=== PATIENT | female | born 1960 | race Caucasian/White ===

== ENCOUNTER 2017-12-10 10:49 | Day surgery (SDC) | payer MEDICAID, SELFPAY ==
[2017-12-10 11:14] VITALS: BP 169/74; PULSE 81; RESP 16; TEMP 36.3; O2SAT 96; BMI 46.2
[2017-12-10 11:25] LABS: Bedside Glucose 152 mg/dL (70-110)
--- NOTE | 2017-12-10 11:47 | EGD_PTH ---
PATIENT: CAROL HORNER LOC: EN U#:[id number] AGE/SX: 57/F ROOM: RE12/10/[address]: Dr. Nicole Velasquez MD : [id number] BED: DIS: 12/10/2017 SPEC #: [id number] RECD: 12/10/17 12:40 STATUS: ANNE MARIE DANIEL #: [id number] MACARENA: 12/10/17 11:[address]: Nicole Velasquez DEPT: SURGICAL PATHOLOGY RECD BY: Lukas Hampton ENTERED: 12/10/17 12:59 SP TYPE: EGD BIOPSY OTHR DR: Dr. Mac Siddiqui MD Tissues: A - Duodenum, NOS B - Gastric mucous membrane C - COLON BIOPSY Procedures: Surgery Specimen Level IV HEADER OPERATION: EGD with biopsy, colonoscopy PRE-OP DIAGNOSIS: Nausea, abdominal pain, loose stool TISSUE SUBMITTED: A ? Duodenum biopsy, B ? GE junction biopsy, C ? Random mucosal biopsies MICROSCOPIC DIAGNOSIS A. Duodenum, biopsy: Small bowel mucosa with no significant pathologic change. Gastric mucosa with minimal chronic inflammation. B. Gastroesophageal junction, biopsy: Fragment of squamous mucosa with no pathologic change. C. Colon, random biopsy: No significant pathologic change. See comment. AM:major 12/11/17 COMMENT C. There is focal recent hemorrhage in the mucosa. Clinical correlation is suggested. MICROSCOPIC DESCRIPTION Slides are reviewed. GROSS DESCRIPTION A - Received in fixative is one container labeled with the patient's name and designated duodenum biopsy. The specimen consists of two irregular fragments of light pruitt soft tissue that in aggregate measure 0.4 x 0.2 x 0.1 cm. The specimen is totally submitted in one cassette. B - Received in fixative is one container labeled with the patient's name and designated GE junction biopsy. The specimen consists of one minute fragment of pruitt soft tissue measuring 0.1 x 0.1 x <0.1 cm. The specimen is totally submitted in one cassette. C - Received in fixative is one container labeled with the patient's name and designated random mucosal biopsy. The specimen consists of multiple irregular fragments of light pruitt soft tissue that in aggregate measure 2.5 x 0.5 x 0.1 cm. The specimen is totally submitted in one cassette. / DELFIN:major 12/10/17 TC:3 CPT: 41060 x3
[2017-12-10 12:16] VITALS: BP 116/97; BP 169/74; PULSE 89; RESP 18; TEMP 36.4; O2SAT 95
[2017-12-10 12:20] VITALS: BP 121/82; BP 169/74; PULSE 79; RESP 18; O2SAT 94
--- NOTE | 2017-12-10 12:20 | OP.PCM_ITS ---
Report of Operation Date of Procedure: 12/10/17 Pre-Operative Diagnosis: dysphagia, abdominal pain, change in bowel habits Post-Operative Diagnosis: same,no pathology seen Surgery/Procedure Performed:: Esophagogastroduodenoscopy and colonoscopy with biopsies Description of Surgical Findings:: normal EGD, normal colon Type of Anesthesia:: MAC Anesthesiologist: Albert Croft Specimen's removed: mucosal biopsies of duodenum (second portion), mucosal biopsies of GE junction, random mucosal biopsies of colon Estimated Blood Loss (mL): minimal Fluids Replaced: see anesthesia note Description of Procedure: After informed consent was given, the patient was brought to the endoscopy suite and placed in the upright sitting position. Appropriate time out protocol was followed. Appropriate cardiac, blood pressure, and pulse oximetry monitoring was placed. After stable vital signs were noted, the patient was given intravenous conscious sedation. The posterior pharynx was sprayed with lidocaine spray times two and a bite block was placed. The patient was then placed in the left lateral decubitis position. The upper endoscope was lubricated and inserted into the patient?s mouth and then carefully placed into the patient?s throat. The patient was asked to swallow and the endoscope was then easily advanced into the patient?s esophagus. The endoscope was further advanced down into the patient?s stomach, then past the pylorus, then past the duodenal bulb and then to the second portion of the duodenum. There were no lesions noted in the duodenum. Mucosal biopsies were taken of the second portion of the duodenum to rule out celiac sprue. The endoscope was then retracted back into the stomach. A retroflex view of the stomach revealed no evidence of any masses. No ulcers, no strictures, no suspicious lesions were noted. The endoscope was retracted into the esophagus, where any insufflated gas in the stomach was aspirated out. The gastroesophageal junction was slightly irregular and mucosal biopsies were taken. There was no evidence of salmon colored mucosal creeping. The remainder of the esophagus was normal. The upper endoscope was removed intact. The colonoscopy procedure was done next. The colonoscope was lubricated and carefully inserted into the patient?s anus. It was then advanced into the rectum, then into the sigmoid colon, then into the left descending colon, past the splenic flexure, into the transverse colon, past the hepatic flexure, then down into the right descending colon and into the cecum. The cecum was identified by: transillumination, confluence of the tenae coli, identification of the ileocecal valve and appendiceal orifice, and external pressure with indentation. Mucosal biopsies were taken throughout the colon using cold grasper forceps to rule out microscopic colitis. The colonoscope was slowly retracted back and the entire colonic mucosa was examined. There was no evidence of extrinsic compression and no inflammatory changes were noted. The colon cleansing preparation was adequate. No intraluminal obstructing lesions, no strictures, and no ulcers were noted. Retroflex view in the rectum revealed no lesions in the rectal vault. The colonoscope was removed intact. Patient tolerated procedures well.. - Complications none noted
[2017-12-10 12:25] VITALS: BP 134/84; BP 169/74; PULSE 71; RESP 18; O2SAT 94
[2017-12-10 12:34] VITALS: BP 150/80; BP 169/74; PULSE 69; RESP 18; TEMP 36.6; O2SAT 97
[2017-12-10 12:55] VITALS: BP 169/74
== END 2017-12-10 12:57 | disposition home or self-care (01) ==
LOC: EN 10:50 → AC 10:51
PROVIDERS: Family Provider Family Medicine; PCP Family Medicine; Visit Provider Surgery
PROC: 0DJD8ZZ Inspection of Lower Intestinal Tract, Via Natural or Artificial Opening Endoscopic (ICD-10-PCS; CPT 45378; principal; 2017-12-10 11:55)
DX: R13.10 Dysphagia, unspecified (principal); R10.9 Unspecified abdominal pain; R19.4 Change in bowel habit; I10 Essential (primary) hypertension; J45.909 Unspecified asthma, uncomplicated; K76.0 Fatty (change of) liver, not elsewhere classified; E11.9 Type 2 diabetes mellitus without complications; E78.5 Hyperlipidemia, unspecified; R22.0 Localized swelling, mass and lump, head; F17.200 Nicotine dependence, unspecified, uncomplicated; Z95.1 Presence of aortocoronary bypass graft
CPT/HCPCS: 43239; 45378; 82962; 88305; J7120

== ENCOUNTER 2019-03-03 09:54 | Observation (INO) | payer MEDICAID, SELFPAY ==
--- NOTE | 2019-03-01 04:30 | HP_ITS ---
HPI HPI History of Present Illness Surgical H&P: Yes Details: Mrs. Nolan is a very pleasant 58-year-old morbidly obese diabetic female with a history of hypertension, current smoker, with a total [id number] smoking history, hypercholesterolemia, coronary artery disease status post two- vessel bypass surgery at [facility] in [address] Parra. At that time she had a ORTIZ to the LAD, and a saphenous vein graft to the RCA. She then returned to [facility] on 06/17/2017 with recurrent substernal chest pressure similar to her angina prior to her bypass surgery. She apparently was admitted and ruled out for myocardial infarction underwent a non-walking nuclear stress test on 06/18/2017 which was negative for inducible ischemia. As best I can tell she has not had a heart catheterization since that time. She is now referred to our office for urgent office visit d/t recurrent CP. More recently, the patient complained of exertional chest pressure, almost on a daily basis, which does not appear to completely resolved with sublingual nitroglycerin. In addition she has significant shortness of breath, diaphoresis, and severe exercise limitations over the last several months. In addition she complains of snoring, wakes herself up with her own snoring, and daytime somnolence. She has never undergone a sleep study. Patient reports that she is compliant with her medications however. In our office today blood pressure is 140/70, and pulse is 80 and regular. Her physical exam demonstrates clear lungs bilaterally, regular rate and rhythm, normal S1/S2, no S3 or S4. No edema. Her lipids as of 06/18/2017 show an LDL of 68 and HDL of 46. Her lipids as of 10/25/2018 show an HDL of 48 and LDL of 101. Hemoglobin A1c is 6.6. EKG dated 06/17/2017 showed NSR. EKG dated 02/28/2019 shows normal sinus rhythm, normal axis, anterior T wave inversion with ST segment flattening, new from previous EKG. Intake Vital Signs 03/01/19 Height 5 ft 7 in 03/01/19 Weight: 286 lb 03/01/19 Body Mass Index (BMI) 44.8 03/01/19 Blood Pressure 140/70 H 03/01/19 Blood Pressure Location Lt brachial 03/01/19 Respiratory Rate 20 H 03/01/19 Pulse Rate 80 03/01/19 Pulse Source Auscultation Intake Visit Reasons: PER LL, CAD SOB, CP, CABG Security Systems Technician Required: No Accompanied by: Is patient in pain?: No Allergies nickel Allergy (Verified 12/09/17 10:03) Rash Penicillins [PCN] Allergy (Verified 12/09/17 10:03) Hives nicotine patch Adverse Reaction (Severe, Uncoded 03/01/19 16:01) Terrible nightmares Medications Aspirin [Adult Low Dose Aspirin EC] 162 mg PO DAILY 05/15/15 [History Confirmed 02/28/19] Nitroglycerin (INPATIENT USE) [Nitrostat] 0.4 mg SUBLINGUAL Q5M PRN 05/15/15 [History Confirmed 02/28/19] Gabapentin [Neurontin] 300 mg PO QHS 01/17/16 [History Confirmed 02/28/19] Albuterol Inhaler [Ventolin Hfa] 2 puff INHALATION Q4H PRN PRN 06/17/17 [History Confirmed 02/28/19] ipratropium-albuterol 0.5 mg-3 mg(2.5 mg base)/3 mL nebulization soln 3 ml INHALATION .QID ml 02/28/19 [History Confirmed 02/28/19] lisinopril 10 mg tablet 10 mg PO DAILY 02/28/19 [History Confirmed 02/28/19] metformin ER 500 mg tablet,extended release 24 hr 500 mg PO BID tab 02/28/19 [History Confirmed 02/28/19] metoprolol succinate ER 50 mg tablet,extended release 24 hr 50 mg PO DAILY 02/28/19 [History Confirmed 02/28/19] clopidogrel 75 mg tablet 75 mg PO .COMPLEX #30 tab 03/01/19 [Rx Confirmed 03/01/19] rosuvastatin 10 mg tablet 10 mg PO DAILY #30 tab 03/01/19 [Rx Confirmed 03/01/19] PFSH Medical History Chest pain (Acute) Dyspnea on minimal exertion (Acute) Atherosclerotic heart disease of cherokee coronary artery with unstable angina pectoris (Acute) Hypertension (Chronic) Hyperlipidemia (Chronic) Diabetes mellitus, type II (Chronic) Tobacco use disorder (Chronic) Surgical History S/P CABG x 2 (Chronic 10/17/15) History of (Chronic) History of arthroscopic knee surgery (Chronic) History of cholecystectomy (Chronic) History of colonoscopy (Chronic) History of esophagogastroduodenoscopy (EGD) (Chronic) History of rotator cuff surgery (Chronic) History of selective injection of anesthetic agent around lumbar nerve root (Chronic) History of tonsillectomy and adenoidectomy (Chronic) History of total right knee replacement (Chronic) History of tubal ligation (Chronic) Family History Mother Kidney disease Congestive heart failure Renal failure Father CAD (coronary artery disease) Daughter Hypertension Social History (Updated 03/01/19 @ 16:30 by Orestes Gamez MD) Smoking Status: Current every day smoker tobacco type: cigarettes Tobacco: How many years used: 43 ROS Const Const: Positive for fatigue (Can't sleep) and other (Dr. Cruz referred: CP, RUDOLPH, sweats. Scheduled for cath Fri.); negative for weakness, body ache, fever(s), headache(s), chills, frequent falls, night sweats, daytime sleepiness, difficulty sleeping, excessive sweating, weight gain, weight loss, increased appetite, poor appetite or anorexia Eyes Eyes: Negative for blind spots, loss of peripheral vision, transient loss of vision, blurry vision, change in vision, double vision, floaters, tunnel vision or other ENT ENT: Negative for headache(s), dizziness, hearing loss, tinnitus, Nosebleed/epistaxis, balance problems, post nasal drip, lip swelling, tongue swelling, bleeding gums, hoarseness, neck pain, dry mouth or other Cardio Chest Pain: Yes Frequency: more than once a day Character: squeezing, other (strong pressure) Onset: exercise Location: mid sternal Duration: minutes Exacerbation: exercise Relieving: other (can't get nitro to dissolve and just got a new bottle) Recurrence: exercise, activity Palpitations: Yes (occasionally) feels like its: pounding Edema: Left (had veins removed in left leg) Muscle aches with walking: Bilateral (Back of calves) Resp Respiratory: Positive for SOB with activity, SOB orthopnea\SOB lying down, Cough (dry cough) and other (smokes 2 ppd since age 11 ); negative for SOB at rest, Coughing up blood/hemoptysis, chest congestion, pain on inspiration, snoring, stridor, wheezing, crackles or paroxysmal nocturnal dyspnea GI GI: Negative nausea, vomiting, heartburn, constipation, belching, bloating, cramping, vomiting blood/hematemesis, bright, red blood in stools, black,tarry stools, loose stools, Difficulty Swallowing or other : Negative for hematuria, frequent nighttime urination/ nocturia, erectile dysfunction or abnormal vaginal bleeding Musc Musc: Negative for muscle aches/ myalgia, muscle weakness, joint pain or balance problems Skin Skin: Negative redness, non-healing lesions, rash, unusual bruising, skin ulcer, wounds, jaundice or other Neuro Neuro: Negative for dizziness, lightheadedness, near syncope, syncope, orthostatic symptoms, frequent falls, headache(s), weakness, confusion, memory loss, restless legs, blurry vision, double vision, vertigo, seizures, lack of coordination or other John Hematologic/Lymphatic: Negative for easy bleeding, easy bruising, enlarged lymph nodes or other Endo Endo: Positive for fatigue (Can't sleep); negative for cold intolerance, heat intolerance, excessive sweating, flushing, increased thirst/drinking, increased hunger, hair loss, hair growth or other Psych Psych: Negative for anxiety, depression, thoughts of harming anyone, thoughts of harming yourself, visual hallucinations, panic attacks or audible hallucinations Allergy Allergy/Immunology: Negative for throat swelling, Negative for tongue swelling, Negative for hives, Negative for rash, Negative for lip swelling Cardiology Exam Const Appearance: cooperative, healthy appearing and no acute distress Nutritional Appearance: well nourished Orientation: alert, oriented x3 and oriented to person Head Head: normal to inspection, normocephalic and atraumatic Nose: external nose normal Face and Sinus: face symmetric Mouth: oral mucosae normal Eyes General: appearance normal, both eyes and all related structures Eyelids: eyelids normal Conjunctivae: conjunctivae normal Pupils: PERRL and normal by confrontation EOM: EOM intact bilaterally Neck Neck: normal visual inspection and full ROM Carotids: normal carotid upstroke Chest Chest inspection: normal inspection of the chest Auscultation: Bilateral: Clear to Auscultation Cardio Palpation: normal PMI Rate: regular rate Rhythm: regular rhythm Heart sounds: S1 normal and S2 normal GI GI: normal to inspection, no hepatosplenomegaly and bowel sounds present Neuro General: alert, awake, oriented x3, CN's II-XI intact bilaterally and moves all extremities Skin Skin: no rashes or lesions noted Extremities Pulses: Normal: Right Femoral Pulse, Left Femoral Pulse, Right Dorsalis Pedis Pulse, Left Dorsalis Pedis Pulse, Right Posterior Tibial Pulse, Left Posterior Tibial Pulse, Right Radial Pulse, Left Radial Pulse Lower Extremity Edema: None: Bilateral Psych Psychological: normal affect Assessment & Plan 1. Atherosclerotic heart disease of cherokee coronary artery with unstable angina pectoris I25.110 Plan 1. Coronary artery disease: Patient has recurrent substernal chest pressure similar to her angina prior to her bypass surgery, which is been on and off for the last several years, but recently is gotten much worse. Although she is compliant with her medications and although she had a negative stress test several years ago, I am concerned the patient may have recurrent coronary atherosclerosis particularly in light of her risk factors of diabetes, smoking, hypertension and subtherapeutic LDL control. I recommended the patient undergo a left heart catheterization with graft angiography to confirm/deny the patency of her bypass grafts as well as to evaluate her other coronary arteries. I recommend the patient continue aspirin, and add Plavix 3 mg x 1 followed by 75 mg daily. The risks/benefits of the catheterization procedure were thoroughly explained the patient including specific attention to lack of on-site surgical back-up, and the patient has agreed to proceed. In the meantime she will continue metoprolol and lisinopril. Should the patient have non-correctable coronary disease we can consider adding Ranexa Orders Orders: Left Heart Cath w/Grafts 03/04/19 Echo Complete 03/03/19 Polysomnography Today Lipid Profile 04/12/19 2. Hyperlipidemia, unspecified hyperlipidemia type E78.5 Plan . 2. Hyperlipidemia: Her LDL cholesterol is not at goal given her risk factors. Recommend discontinuation of Lipitor and switching her to Crestor 20 mill grams p.o. nightly, and repeating lipid profile in 6 weeks time. Orders Orders: Lipid Profile 04/12/19 Liver Profile 04/12/19 3. Tobacco use disorder F17.200 Plan 3. Tobacco abuse: The patient is a longtime smoker, of approximately 47 years x 1 to 2 packs/day. I strongly encourage the patient discontinue all tobacco products. She reports that nicotine patches given her vivid dreams. She has never tried Chantix. She may be a good candidate for Chantix therapy in the future. 4. Daytime somnolence R40.0 Plan 4. Daytime somnolence: The patient has signs and symptoms of possible obstructive sleep apnea which is not been diagnosed. I recommended she undergo a sleep study to determine if she has obstructive sleep apnea. 5. Return office in 6 months. This note was generated using a voice recognition system and there may be incorrect words, spelling or punctuation that were not noted when reviewing the office note prior to saving. Plan Detail Other Orders Orders: Left Heart Cath w/Grafts 03/04/19 R06.09, R07.9, Z95.1 Basic Metabolic Profile (BMP) Today R06.09, R07.9 Partial Thromboplast Time Today R06.09, R07.9 Prothrombin Time w/INR Today R06.09, R07.9 Echo Complete 03/03/19 R06.09, R07.9, Z95.1 CBC-Complete Blood Cnt No Diff Today R06.09, R07.9 Polysomnography Today G47.10, R06.83 Other Medications New: rosuvastatin 10 mg PO DAILY 30 tabs 11RF Discontinued: atorvastatin Discontinued Reason: Order Changed 80 mg PO QHS cholesterol Follow Up +6M (Gamez) Coding Level of Care Code Off vis,new,level 4 Diagnoses Atherosclerotic heart disease of cherokee coronary artery with unstable angina pectoris I25.110 Hyperlipidemia, unspecified hyperlipidemia type E78.5 ??Hyperlipidemia type: unspecified Tobacco use disorder F17.200 Daytime somnolence R40.0 Coding Level of Care Code Off vis,new,level 4 Diagnoses Atherosclerotic heart disease of cherokee coronary artery with unstable angina pectoris I25.110 Hyperlipidemia, unspecified hyperlipidemia type E78.5 ??Hyperlipidemia type: unspecified Tobacco use disorder F17.200 Daytime somnolence R40.0 Supplemental Info Supplemental Information Labs LDL Cholesterol 68 mg/dL (0-130) 06/18/17 HDL Cholesterol 46 mg/dL (40-) 06/18/17 Triglycerides 241 mg/dL (-199) H 06/18/17 VLDL Cholesterol 48 mg/dL (5-40) H 06/18/17 Diagnostics Electrocardiogram 06/17/17 Stress Test Nuclear Medicine 06/18/17 Chest X-Ray 06/17/17 03/01/19 2420 <Electronically signed by Orestes Gamez MD> Date _ Orestes Gamez MD
[2019-03-01 15:24] VITALS: BMI 44.8
[2019-03-03] VITALS (10 sets, daily range): BP systolic 104–155; BP diastolic 63–96; PULSE 62–78; RESP 13–18; TEMP 36.4–36.6; O2SAT 95–99; BMI 47.3; BMI 46.7
--- NOTE | 2019-03-03 10:19 | EKG12_ITS ---
Test Reason : CP Blood Pressure : / mmHG Vent. Rate : 076 BPM Atrial Rate : 076 BPM P-R Int : 180 ms QRS Dur : 086 ms QT Int : 376 ms P-R-T Axes : 072 002 060 degrees QTc Int : 423 ms Normal sinus rhythm Nonspecific T wave abnormality Abnormal ECG Confirmed by ADA KERNS, SHANNA ([id number]), sound editor DULCE MARTIN ([id number]) on 03/07/2019 11:21:51 A M Referred By: Bridger Serna Confirmed By:GLORY CABALLERO MD
--- NOTE | 2019-03-03 10:21 | RAD_ITS ---
STUDY: X-RAY CHEST REASON FOR EXAM: Female, 58 years old. Chest pain TECHNIQUE: Single AP portable view of the chest. COMPARISON: 06/17/2017 FINDINGS: Status post median sternotomy/CABG The lungs are clear and expanded. There is no demonstrated pleural abnormality. Normal size heart. Normal mediastinum and michael. Normal visualized pulmonary arteries. Normal visualized aortic arch and descending thoracic aorta. Normal visualized thoracic spine. Normal visualized ribs, clavicles, and shoulders. There is no demonstrated abnormality of the visualized soft tissue structures of the upper abdomen. RAD/Chest 1 View (Portable) IMPRESSION: Normal x-ray examination of the chest. Electronically Signed: Dayanna Alatorre, at 10:45 EDT Tel , Service support ,
--- NOTE | 2019-03-03 10:21 | ED.VISSUMM ---
- ER Visit Summary Date of Service: 03/03/19 Chief Complaint: Chest pain History of Present Illness: The patient is a 58 F who presents with chest pain that is been getting worse over the past week. Patient states it is gradually gotten worse. Patient states it comes and goes. Patient states it feels like a sharp pain that lasts for a couple seconds and a squeezing pain that lasts a few minutes. Patient states the pain is over the substernal area. Patient states pain is worse with exertion. Patient states nothing seems to help with the pain. Patient admits to some nausea but denies any vomiting. Patient denies any shortness of breath or diaphoresis. Patient does admit to some lightheadedness. Patient has a history of hypertension, diabetes, and hyperlipidemia. Patient is a smoker. Patient does have a family history of coronary artery disease in her parents in their 60s. Patient denies any PE risk factors. Patient states she was scheduled for an echocardiogram today and a cardiac catheterization tomorrow. Physical Examination: Vital signs are stable. Patient is afebrile. Patient is in no acute distress. Oral mucosa is pink and moist. Neck is supple. Trachea is midline. There is no JVD noted. Heart was regular rate and rhythm. Lungs are clear and equal bilateral. Abdomen is soft. Bowel sounds are normal. There is no tenderness. There is no guarding noted. Skin is warm dry. Cranial nerves II through XII are intact. There are no focal motor or sensory deficits noted. Test Results: EKG showed a normal sinus rhythm with a rate of 76. There are nonspecific ST-T wave changes noted in leads V2 and V3 which are unchanged compared to previous EKG. CBC, basic metabolic profile, troponin were obtained and were within normal limits. Chest x-ray shows no acute cardiopulmonary process. Emergency Department Course and Treatment: Patient was given aspirin and sublingual nitroglycerin here. She had slight improvement with the sublingual nitroglycerin. Case was discussed with Dr. Gamez. He recommended admitting the patient to the hospital and continuing with her scheduled cardiac cath tomorrow. Case was discussed with hospitalist. He will admit the patient to his service. Patient understood and was agreeable with the plan. All questions were answered. Disposition: Admit to hospital Impression: Chest pain This note was generated with Hubbub dictation software. It may contain incorrect words, spelling, and punctuation that were not noted in review of the chart prior to signing ED Disposition - Plan for ED Patient: Disposition: Acute Care Hospital [facility] Diagnosis: Chest pain Referrals: Mac Siddiqui MD [Primary Care Provider] -
[2019-03-03] MEDS: Aspirin 81 MG TAB.CHEW 324 MG PO (10:27)
[2019-03-03] MEDS: Nitroglycerin SL (ED/IMG/CATH) 0.4 MG TABLET SUBLINGUAL ×3 (10:28→10:42)
[2019-03-03 10:36] LABS: Absolute Lymphocyte Count 2.14 X10^3/uL (0.83-4.51); Absolute Neutrophil Count 3.9 X10^3/uL (2.0-7.7); Basophil# 0.05 X10^3/uL; Basophil% 0.7 % (0-1); Eosinophil# 0.16 X10^3/uL; Eosinophils% 2.3 % (0-5); Hematocrit 47.1 % (37-47); Hemoglobin 15.5 g/dL (12.0-15.0); Lymphocyte # 2.14 X10^3/ul (4.0); Mean Corp Hgb Conc 32.9 g/dL (32-36); Mean Corpuscular Hgb 31.5 pg (27.0-32.0); Mean Corpuscular Volume 95.7 fL (81-99); Mean Platelet Vol. 9.2 fl (6.2-12.0); Monocyte# 0.69 X10^3/uL; NRBC Flagged by Analyzer 0 % (0-5); Neutrophil # 3.85 X10^3/uL (2.7-7.7); Neutrophil % 55.7 % (47-70); Platelet Count 203 K/mm3 (150-450); RBC Distribution Width CV 13.4 % (11.6-14.6); RBC Distribution Width SD 47.7 fl (35.1-43.9); Red Blood Count 4.92 M/mm3 (4.2-5.4); White Blood Count 6.9 K/mm3 (4.4-11.0)
[2019-03-03 10:55] LABS: Anion Gap 3 (5-15); BUN 10 mg/dL (7-18); Calcium,Total 8.9 mg/dL (8.5-10.1); Chloride 108 mmol/L (98-107); Creatinine, Serum 0.72 mg/dL (0.55-1.02); EST Glomerular Filtration Rate 88 mL/min (>60); Est Glom Filt Rate - Afr Amer 107 mL/min (>60); Estimated Creatinine Clearance 77.79 ml/min; Glucose 135 mg/dL (74-106); Potassium 4.4 mmol/L (3.5-5.1); Sodium Level 139 mmol/L (136-145)
--- NOTE | 2019-03-03 11:05 | ED.RN ---
DR NOTIFIED NITRO TOOK PAIN TO 2-3:10, C/O NITRO MORGAN BUT STATES DOES NOT NEED MED FOR IT. REQUESTING MED FOR NAUSEA. NEW ORDER RECEIVED FOR X1 IV ZOFRAN.
[2019-03-03] MEDS: Ondansetron 4 MG/2 ML Vial IV (11:09)
--- NOTE | 2019-03-03 13:08 | ECHOCS_ITS ---
Reason For Study: CP Procedure This was a 2D Doppler, Color Flow transthoracic echocardiogram. The study was technically difficult. Contrast injection was performed. Exam performed portable in patient room. Left Ventricle Normal size and thickness. The estimated ejection fraction is 65 %. Stage 1 diastolic dysfunction. No regional wall motion abnormalities noted. Right Ventricle Normal size and thickness. Normal systolic function. Atria Normal left atrium. Normal right atrium. Normal atrial septum. Mitral Valve The mitral valve is structurally normal. No prolapse or stenosis seen. Tricuspid Valve Normal tricuspid valve. Trivial tricuspid valve insufficiency. Right ventricular systolic pressure estimated to be 25 mmHg. Aortic Valve Normal aortic valve. Trisinus/trileaflet aortic valve. Pulmonic Valve The pulmonic valve is not well visualized. Great Vessels Normal aortic root. Normal arch. Normal inferior vena cava. Inferior vena cava collapse with sniff. Pericardium/Pleural No pericardial effusion. Medication Diluted definity 5ml given slow IV push to enhance endocardial definition. MMode/2D Measurements & Calculations LVIDd: 4.6 cm IVSd: 1.1 cm LAV(MOD-bp): 39.7 ml LVIDs: 3.6 cm LVPWd: 1.1 cm FS: 20.5 % LAV(MOD-bp) Indexed: 17.0 ml/m2 LAV(MOD-sp2): 43.8 ml LAV(MOD-sp4): 31.4 ml LA A4 area: 13.8 cm2 RA A4 area: 12.5 cm2 Time Measurements MV dec time: 0.34 sec Doppler Measurements & Calculations MV E max talat: 78.9 cm/sec Lat Peak E' Talat: 8.7 cm/sec Med Peak E' Talat: 8.1 cm/sec MV A max talat: 89.1 cm/sec E/E' lat: 9.1 E/E' med: 9.7 MV E/A: 0.89 MV V2 max: 107.9 cm/sec MV P1/2t max talat: 87.6 cm/sec Ao V2 max: 109.8 cm/sec MV max P.7 mmHg MV P1/2t: 82.1 msec Ao max P.8 mmHg MV V2 mean: 51.8 cm/sec Ao V2 mean: 72.1 cm/sec MV mean P.3 mmHg MV dec slope: 312.5 cm/sec2 Ao mean P.4 mmHg MV V2 VTI: 34.7 cm MVA(P1/2t): 2.7 cm2 Ao V2 VTI: 22.3 cm LV V1 max: 101.2 cm/sec PA V2 max: 86.7 cm/sec TR max talat: 220.9 cm/sec LV V1 max P.1 mmHg TR max P.5 mmHg LV V1 mean P.9 mmHg LV V1 mean: 64.1 cm/sec LV V1 VTI: 23.4 cm Interpretation Summary The estimated ejection fraction is 65 %. Stage 1 diastolic dysfunction. Trivial tricuspid valve insufficiency. Right ventricular systolic pressure estimated to be 25 mmHg. The study was technically difficult. There is no comparison study available. Contrast injection was performed. Ordering Physician: Bridger Serna Referring Physician: MOON OLVERA Performed By: Jarred Yen RCS
--- NOTE | 2019-03-03 14:28 | PCM.HP.STD ---
Problem List (1) Chest pain Status: Acute Qualifiers: Ischemic chest pain type: unspecified angina pectoris type (2) Dyspnea on minimal exertion Status: Acute (3) Atherosclerotic heart disease of [place] coronary artery with unstable angina pectoris Status: Acute (4) S/P CABG x 2 Status: Chronic Comment: @ [facility] per Dr. Massimo Parra 2018: (5) Hypertension Status: Chronic Qualifiers: (6) Hyperlipidemia Status: Chronic Qualifiers: (7) Diabetes mellitus, type II Status: Chronic (8) Tobacco use disorder Status: Chronic History of Present Illness Date of Admission: 03/03/19 Chief Complaint: Chest Pain The patient is a 58 year old F with PMH as below who presents with chest pain. She is having chest pain intermittently for the last several weeks without radiation, however this week it has become more consistent and intense. This is a similar pain to what caused her to have a CABG in 2017. She saw cardiology on March 01 and they had set her up with a cardiac cath tomorrow however she became concerned because the continued chest pain so she presented to the ER. In the ER EKG was unremarkable and her to initial troponins were negative. She is morbidly obese and continues to smoke as well as being a diabetic. Per cardiology's outpatient note, she was given a prescription to take 300 mg of Plavix x1 as well as aspirin, and then transition to aspirin and Plavix daily. In the ER she was given a loading dose of aspirin as well and cardiology was consulted. Past Medical History Past Medical History (Chronic Problems): Chronic Problems (Last Reviewed 03/01/19 @ 15:24 by Hyacinth Mills) S/P CABG x 2 (Chronic 10/17/15) @ [facility] per Dr. Massimo Parra 2018: Hypertension (Chronic) Hyperlipidemia (Chronic) Diabetes mellitus, type II (Chronic) Tobacco use disorder (Chronic) Medical History: Medical History (Last Reviewed 03/01/19 @ 15:24 by Hyacinth Mills) Chest pain (Acute) R07.9 Dyspnea on minimal exertion (Acute) R06.09 Atherosclerotic heart disease of [place] coronary artery with unstable angina pectoris (Acute) I25.110 Hypertension (Chronic) I10 Hyperlipidemia (Chronic) E78.5 Diabetes mellitus, type II (Chronic) E11.9 Tobacco use disorder (Chronic) F17.200 Allergies nickel Allergy (Verified 12/09/17 10:03) Rash Penicillins [PCN] Allergy (Verified 12/09/17 10:03) Hives nicotine patch Adverse Reaction (Severe, Uncoded 03/01/19 16:01) Terrible nightmares Home Medications: Ambulatory Orders Medication Instructions Recorded Nitroglycerin (INPATIENT USE) 0.4 mg SUBLINGUAL Q5M PRN 05/15/15 [Nitrostat] Gabapentin [Neurontin] 300 mg PO QHS 01/17/16 Albuterol Inhaler [Ventolin Hfa] 2 puff INHALATION Q4H PRN PRN 06/17/17 ipratropium-albuterol 0.5 mg-3 3 ml INHALATION .QID PRN ml 02/28/19 mg(2.5 mg base)/3 mL nebulization soln lisinopril 10 mg tablet 20 mg PO DAILY 02/28/19 metformin ER 500 mg 500 mg PO BID tab 02/28/19 tablet,extended release 24 hr metoprolol succinate ER 50 mg 50 mg PO DAILY 02/28/19 tablet,extended release 24 hr aspirin 81 mg tablet,delayed 162 mg PO DAILY tab 03/01/19 release clopidogrel 75 mg tablet 75 mg PO .COMPLEX #30 tab 03/01/19 rosuvastatin 10 mg tablet 10 mg PO DAILY #30 tab 03/01/19 Surgical History: Surgical History (Last Reviewed 03/01/19 @ 15:24 by Hyacinth Mills) S/P CABG x 2 (Chronic) Onset Date: 10/17/15 Z95.1 @ [facility] per Dr. Massimo Parra 2018: History of Z98.891 History of arthroscopic knee surgery Z98.890 History of cholecystectomy Z90.49 History of colonoscopy Z98.890 History of esophagogastroduodenoscopy (EGD) Z98.890 History of rotator cuff surgery Z98.890 History of selective injection of anesthetic agent around lumbar nerve root Z98.890 History of tonsillectomy and adenoidectomy Z98.890 History of total right knee replacement Z96.651 History of tubal ligation Z98.51 Surgical History: cholecystectomy, rotator cuff repair, total knee arthroplasty, tonsillectomy, - - caesarian section Psychiatric History: Depression Smoking Status: Current every day smoker Tobacco Use: Cigarettes Alcohol: None Drugs: None - *Family History Paternal Family History: Family History (Last Reviewed 03/01/19 @ 15:24 by Hyacinth Mills) Mother Kidney disease Congestive heart failure Renal failure Father CAD (coronary artery disease) Daughter Hypertension History Items: Heart Disease - [place] at the age of 60 Offspring Family History: Family History (Last Reviewed 03/01/19 @ 15:24 by Hyacinth Mills) Mother Kidney disease Congestive heart failure Renal failure Father CAD (coronary artery disease) Daughter Hypertension History Items: Hypertension Review of Systems Constitutional: Denies: Chills, Fever, Weight Change HEENT: Denies: Head Aches, Sinus Congestion, Sinus Drainage Cardiovascular: Reports: Chest Pain. Denies: Palpitations Respiratory: Reports: Shortness of Breath, Shortness of breath upon exertion. Denies: Cough, Shortness of breath at rest, Sputum production Gastrointestinal: Denies: Abdominal Pain, Nausea, Vomiting Genitourinary: Denies: Dysuria Musculoskeletal: Denies: Joint Pain, Joint Tenderness Skin: Denies: Rash, Wounds Neurological: Denies: Numbness, Tingling, Focal weakness Psychiatric: Denies: Anxiety, Depression Hematologic/ Lymphatic: Denies: Easy Bruising, Easy Bleeding VTE Information - Inpt Only VTE Present on Admission: No Patient Problems: Active and Suspected Problems (Last Reviewed 03/01/19 @ 15:24 by Hyacinth Mills) Chest pain (Acute) - Physical Exam General: Alert, Oriented x3, Cooperative, No apparent distress HEENT: Atraumatic, PERRLA, EOMI, Normocephalic Oral: Moist Mucosa Neck: Supple, No JVD Lungs: Clear to auscultation, Normal air movement, No rhonchi, No wheeze, No rales Cardiovascular: Regular rate, Regular Rhythm, Normal S1, Normal S2, No murmurs Abdomen: Soft, Non Tender, Non-Distended, No Hepato-splenomegaly Extremities: No edema, Capillary Refill Less than 3 Seconds Skin: No rashes, No breakdown Neurological: Neuro grossly intact, Sensory exam intact to light touch and pain Psych/Mental Status: Normal Affect, Appropriate Vital Signs Temp Pulse Resp BP Pulse Ox 97.8 F 64 16 127/70 H 97 03/03/19 09:55 03/03/19 12:11 03/03/19 12:11 03/03/19 12:11 03/03/19 12:11 Oxygen Flow Rate (L/min) 2 Oxygen Delivery Method Room Air Weight: 289 lb 6 oz Body Mass Index (BMI) 46.7 Finger Stick Blood Glucose 113 Laboratory Tests Past 24 Hrs 03/03/19 03/03/19 03/03/19 10:22 10:22 13:30 WBC 6.9 RBC 4.92 Hgb 15.5 H Hct 47.1 H MCV 95.7 MCH 31.5 MCHC 32.9 RDW Std Deviation 47.7 H RDW Coeff of Aubrey 13.4 Plt Count 203 MPV 9.2 Immature Gran % (Auto) 0.300 Neut % (Auto) 55.7 Lymph % (Auto) 31.0 [place] % (Auto) 10.0 Eos % (Auto) 2.3 Baso % (Auto) 0.7 Absolute Neuts (auto) 3.9 Absolute Lymphs (auto) 2.14 Nucleated RBC % 0 Sodium 139 Potassium 4.4 Chloride 108 H Carbon Dioxide 28.0 Anion Gap 3 L BUN 10 Creatinine 0.72 Estim Creat Clear Calc 77.79 Est GFR (MDRD) Af Amer 107 Est GFR (MDRD) Non-Af 88 BUN/Creatinine Ratio 14.0 Glucose 135 H Calcium 8.9 Troponin I < 0.015 < 0.015 Assessment/Plan All Active Problems (Last Reviewed 03/01/19 @ 15:24 by Hyacinth Mills) Chest pain (Acute) Dyspnea on minimal exertion (Acute) Atherosclerotic heart disease of [place] coronary artery with unstable angina pectoris (Acute) 1. Chest pain/CAD status post CABG/HTN/HLD/tobacco abuse -Troponins are negative x2 -She was supposed to have an echo today, will order as an inpatient -Plan for cardiac cath in the morning -Consult to cardiology -We will restart her home lisinopril, metoprolol, and Crestor -Continue with aspirin and Plavix daily -She has about an [id number] smoking history, she continues to smoke, advised cessation. Will provide a nicotine patch 2. DM 2/morbid obesity -She has a BMI of 46.7, she was advised on lifestyle modifications including diet and exercise -She is on metformin 500 mg twice daily at home, will hold and start her on a sliding scale insulin 3. Asthma or COPD -Not in exacerbation, not needing oxygen -Continue with her home inhalers DVT: SCDs Code Visit OBSV E&M: [id number] Initial observation care L3
[2019-03-03] MEDS: Clopidogrel Bisulfate 300 MG Tablet PO (15:26)
[2019-03-03] MEDS: Nitroglycerin Oint 1 INCH PACKET TRANSDERM. ×2 (15:34→17:14)
[2019-03-03 17:06] LABS: Bedside Glucose 151 mg/dL (70-110)
[2019-03-03] MEDS: Insulin Lispro 100 UNIT/ML INSULN.PEN SC (17:12)
[2019-03-03] MEDS: Gabapentin 300 MG Capsule PO (22:20)
[2019-03-03] MEDS: Atorvastatin Calcium 20 MG Tablet PO (22:20)
[2019-03-03 22:31] LABS: Bedside Glucose 117 mg/dL (70-110)
[2019-03-04] VITALS (26 sets, daily range): BP systolic 101–157; BP diastolic 36–96; PULSE 55–70; RESP 14–22; TEMP 36.4–36.8; O2SAT 92–97; BMI 46.6
[2019-03-04] MEDS: Nitroglycerin Oint 1 INCH PACKET TRANSDERM. ×2 (00:04→05:38)
[2019-03-04] MEDS: oxyCODONE 5 MG Tablet PO (00:26)
[2019-03-04] MEDS: MELATONIN 3 MG TABLET PO ×2 (00:27→21:39)
[2019-03-04] MEDS: Aspirin E.C. 81 MG Tablet 162 MG PO (05:30)
[2019-03-04] MEDS: Metoprolol(XL)Succ 50 MG Tablet PO (05:31)
[2019-03-04] MEDS: Clopidogrel Bisulfate 75 MG Tablet PO (05:31)
[2019-03-04] MEDS: Lisinopril 20 MG Tablet PO (05:31)
[2019-03-04] MEDS: 0.9% NaCl Peripheral Flush Adult/Peds IV ×3 (05:54→21:46)
--- NOTE | 2019-03-04 05:55 | EKG12_ITS ---
Test Reason : AM EKG Blood Pressure : / mmHG Vent. Rate : 063 BPM Atrial Rate : 063 BPM P-R Int : 174 ms QRS Dur : 090 ms QT Int : 412 ms P-R-T Axes : 000 009 032 degrees QTc Int : 421 ms Normal sinus rhythm ST & T wave abnormality, consider anterior ischemia Abnormal ECG When compared with ECG of 03-MAR-2019 13:35, MANUAL COMPARISON REQUIRED, DATA IS UNCONFIRMED Confirmed by EFREN KERNS, LIANA ([id number]), writer editor SURY KAUFMAN ([id number]) on 03/07/2019 1:32:40 PM Referred By: Bridger Serna Confirmed By:LIANA SCHWARTZ MD
[2019-03-04] MEDS: 0.9% Normal Saline 1,000 ML 15 ML IV (06:00)
[2019-03-04 06:38] LABS: Absolute Lymphocyte Count 2.85 X10^3/uL (0.83-4.51); Absolute Neutrophil Count 3.9 X10^3/uL (2.0-7.7); Basophil# 0.05 X10^3/uL; Basophil% 0.6 % (0-1); Eosinophil# 0.25 X10^3/uL; Eosinophils% 3.2 % (0-5); Hematocrit 42.5 % (37-47); Hemoglobin 14.2 g/dL (12.0-15.0); Lymphocyte # 2.85 X10^3/ul (4.0); Lymphocyte % 36.8 % (19-41); Mean Corp Hgb Conc 33.4 g/dL (32-36); Mean Corpuscular Volume 95.7 fL (81-99); Mean Platelet Vol. 9.6 fl (6.2-12.0); Monocyte# 0.64 X10^3/uL; Monocyte% 8.3 % (0-10); NRBC Flagged by Analyzer 0 % (0-5); Neutrophil # 3.91 X10^3/uL (2.7-7.7); Neutrophil % 50.6 % (47-70); Platelet Count 183 K/mm3 (150-450); RBC Distribution Width CV 13.2 % (11.6-14.6); RBC Distribution Width SD 46.7 fl (35.1-43.9); Red Blood Count 4.44 M/mm3 (4.2-5.4); White Blood Count 7.7 K/mm3 (4.4-11.0)
[2019-03-04 06:55] LABS: Anion Gap 9 (5-15); BUN 14 mg/dL (7-18); BUN/Creat Ratio 18.2 RATIO (10-20); Calcium,Total 8.4 mg/dL (8.5-10.1); Chloride 106 mmol/L (98-107); Creatinine, Serum 0.77 mg/dL (0.55-1.02); EST Glomerular Filtration Rate 82 mL/min (>60); Est Glom Filt Rate - Afr Amer 99 mL/min (>60); Estimated Creatinine Clearance 72.73 ml/min; Glucose 163 mg/dL (74-106); Potassium 4.1 mmol/L (3.5-5.1); Sodium Level 138 mmol/L (136-145)
[2019-03-04 07:36] LABS: Bedside Glucose 137 mg/dL (70-110)
[2019-03-04] MEDS: DiphenhydrAMINE 25 MG Capsule 50 MG PO (07:48)
--- NOTE | 2019-03-04 08:03 | PCM.PN.HOSP ---
Patient Problems: Active and Suspected Problems (Last Reviewed 03/01/19 @ 15:24 by Hyacinth Mills) Chest pain (Acute) Subjective: Doing well, no issues over night. Chest pain is feeling better Vitals/I&O's: Vital Signs Temp Pulse Resp BP Pulse Ox 97.8 F 61 22 H 118/64 93 03/04/19 05:23 03/04/19 07:00 03/04/19 05:23 03/04/19 05:23 03/04/19 05:23 Oxygen Flow Rate (L/min) 2 Oxygen Delivery Method Room Air Weight: 289 lb 6 oz Body Mass Index (BMI) 46.7 Finger Stick Blood Glucose 113 Intake and Output for Last 24 Hours 03/02/19 03/03/19 03/04/19 23:59 23:59 23:59 Intake Total 930 / 930 760 / 760 Balance 930 / 930 760 / 760 General: Alert, Oriented x3, Cooperative, No apparent distress HEENT: Atraumatic, PERRLA, EOMI, Normocephalic Oral: Moist Mucosa Neck: Supple, No JVD Lungs: Clear to auscultation, Normal air movement, No rhonchi, No wheeze, No rales Cardiovascular: Regular rate, Regular Rhythm, Normal S1, Normal S2, No murmurs Abdomen: Soft, Non Tender, Non-Distended, No Hepato-splenomegaly, obese Extremities: No edema, Capillary Refill Less than 3 Seconds Skin: No rashes, No breakdown Neurological: Neuro grossly intact, Sensory exam intact to light touch and pain Psych/Mental Status: Normal Affect, Appropriate Laboratory Results 03/03/19 10:22: WBC 6.9, RBC 4.92, Hgb 15.5 H, Hct 47.1 H, MCV 95.7, MCH 31.5, MCHC 32.9, RDW Std Deviation 47.7 H, RDW Coeff of Aubrey 13.4, Plt Count 203, MPV 9.2, Immature Gran % (Auto) 0.300, Neut % (Auto) 55.7, Lymph % (Auto) 31.0, [place] % (Auto) 10.0, Eos % (Auto) 2.3, Baso % (Auto) 0.7, Absolute Neuts (auto) 3.9, Absolute Lymphs (auto) 2.14, Nucleated RBC % 0 03/03/19 10:22: Sodium 139, Potassium 4.4, Chloride 108 H, Carbon Dioxide 28.0, Anion Gap 3 L, BUN 10, Creatinine 0.72, Estim Creat Clear Calc 77.79, Est GFR (MDRD) Af Amer 107, Est GFR (MDRD) Non-Af 88, BUN/Creatinine Ratio 14.0, Glucose 135 H, Calcium 8.9, Troponin I < 0.015 03/03/19 13:30: Troponin I < 0.015 03/03/19 16:18: Troponin I < 0.015 03/03/19 16:59: POC Glucose 151 H 03/03/19 22:18: POC Glucose 117 H 03/04/19 06:00: WBC 7.7, RBC 4.44, Hgb 14.2, Hct 42.5, MCV 95.7, MCH 32.0, MCHC 33.4, RDW Std Deviation 46.7 H, RDW Coeff of Aubrey 13.2, Plt Count 183, MPV 9.6, Immature Gran % (Auto) 0.500, Neut % (Auto) 50.6, Lymph % (Auto) 36.8, Ogle % (Auto) 8.3, Eos % (Auto) 3.2, Baso % (Auto) 0.6, Absolute Neuts (auto) 3.9, Absolute Lymphs (auto) 2.85, Nucleated RBC % 0 03/04/19 06:00: Sodium 138, Potassium 4.1, Chloride 106, Carbon Dioxide 23.0, Anion Gap 9, BUN 14, Creatinine 0.77, Estim Creat Clear Calc 72.73, Est GFR (MDRD) Af Amer 99, Est GFR (MDRD) Non-Af 82, BUN/Creatinine Ratio 18.2, Glucose 163 H, Calcium 8.4 L 03/04/19 06:52: POC Glucose 137 H Current Medications Albuterol/Ipratropium (Duoneb) 3 ml INHALATION .QID PRN PRN Reason: SOB &/OR WHEEZING [facility] Admin: 03/04/19 05:30 Dose: 162 mg Documented by: Atorvastatin Calcium (Lipitor) 20 mg PO QHS [facility] Last Admin: 03/03/19 22:20 Dose: 20 mg Documented by: Clopidogrel Bisulfate (Plavix) 75 mg PO DAILY [facility] Last Admin: 03/04/19 05:31 Dose: 75 mg Documented by: Dextrose (D50w Syringe) 0 gm IV X1 PRN; Protocol PRN Reason: Hypoglycemia Gabapentin (Neurontin) 300 mg PO QHS [facility] Last Admin: 03/03/19 22:20 Dose: 300 mg Documented by: Glucagon () 1 mg IM .X1 PRN PRN Reason: Hypoglycemia Sodium Chloride () 1,000 mls @ 15 mls/hr IV .Q48H [facility] Last Admin: 03/04/19 06:00 Dose: 15 mls/hr Documented by: Insulin Human Lispro (Humalog Kwikpen (Bkc)) 0 unit SC ACHS ALISIA; Protocol Last Admin: 03/04/19 05:35 Dose: Not Given Documented by: Lisinopril (Zestril) 20 mg PO DAILY [facility] Last Admin: 03/04/19 05:31 Dose: 20 mg Documented by: Melatonin (Melatonin) 3 mg PO QHS PRN PRN Reason: SLEEP Last Admin: 03/04/19 00:27 Dose: 3 mg Documented by: Metoprolol Succinate (Toprol Xl (Beta Elyse)) 50 mg PO DAILY [facility] Last Admin: 03/04/19 05:31 Dose: 50 mg Documented by: Nicotine (Nicoderm Cq (Pbkc)) 21 mg TRANSDERM. DAILY [facility] Last Admin: 03/03/19 15:32 Dose: 21 mg Documented by: Nitroglycerin (Nitrostat) 0.4 mg SUBLINGUAL Q5M PRN PRN Reason: CARDIAC/CHEST PAIN Nitroglycerin (Nitrobid) 1 inch TRANSDERM. Q6 [facility] Last Admin: 03/04/19 05:38 Dose: 1 inch Documented by: Sodium Chloride () 10 - 40 ml IV UD PRN PRN Reason: SALINE FLUSH Last Admin: 03/04/19 05:54 Dose: 10 ml Documented by: Medical Necessity - Tobacco Use Smoking Status: Current every day smoker Tobacco Use: Cigarettes Assessment/Plan All Active Problems (Last Reviewed 03/01/19 @ 15:24 by Hyacinth Mills) Chest pain (Acute) Dyspnea on minimal exertion (Acute) Atherosclerotic heart disease of [place] coronary artery with unstable angina pectoris (Acute) 1. Chest pain/CAD status post CABG/HTN/HLD/tobacco abuse -Troponins are negative x3 -Echo with normal EF and Stage I diastolic dysfunction -Plan for cardiac cath today -Consult to cardiology -C/w her home lisinopril, metoprolol, and Crestor -Continue with aspirin and Plavix daily -She has about an [id number] smoking history, she continues to smoke, advised cessation. Will provide a nicotine patch 2. DM 2/morbid obesity -She has a BMI of 46.7, she was advised on lifestyle modifications including diet and exercise -She is on metformin 500 mg twice daily at home, will hold and continue her on a sliding scale insulin 3. Asthma or COPD -Not in exacerbation, not needing oxygen -Continue with her home inhalers DVT: SCDs Code Visit OBSV E&M: [id number] Subsequent observation care L2
--- NOTE | 2019-03-04 08:04 | CASEMGMT ---
According to the [facility] website, the following are in-network tertiary facilities: [facility], [facility], [facility], [place], [facility], [facility], [facility], and . Micaela MINOR [facility]
[2019-03-04 09:36] LABS: ACT Activated Clotting Time 142 sec (74-137)
--- NOTE | 2019-03-04 09:51 | CL.I_ITS ---
Patient Name: CAROL HORNER Study Date: 03/04/2019 Performing: Orestes Gamez MD Ht: 66.14 inches 168 cm : 1960 Wt: 288.81 lbs 131 kg Age: 58 Gender: female BSA: 2.34 PROCEDURE(S) PERFORMED [id number]-[id number]/COR/LV/CABG [id number] W OR WO PTCA, SINGLE CORONARY ARTERY CLINICAL PROFILE AND CO-MORBIDITIES Indications: ACS > 24 hrs, New Onset Angina <= 2 months, Stable Known CAD Heart Failure: None Stress/Imaging Date: 06/13/01 Stress Test with SPECT MPI: Negative Angina Classification Anginal Classification w/in 2 Weeks: CCS IV CAD Presentations: Unstable angina. 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 Successful PTCA/ELEONORA proximal RCA with a 3.0 x 12 Promus Synergy; 75%-->0%, no dissection. RECOMMENDATIONS Referred for immediate PCI Medical management of non obstructive distal LM and OM unless or until pt has recurrent anginal sympt oms or lateral ischemia on stress testing. Highly recommend quitting all tobacco products Follow up with primary sales engineer engineered products Risk factor modification ASA Indefinitley Plavix for at least 12 months Routine post interventional care Refer for Outpatient Cardiac Rehab Manual sheath removal per protocol Follow up with Dr. Gamez Highly recommend quitting all tobacco products Follow up with primary sales engineer engineered products Risk factor modification ASA Indefinitley Plavix for at least 12 months Routine post interventional care Refer for Outpatient Cardiac Rehab Manual sheath removal per protocol Medical management of proximal PDA stenonsis which appeared to resolve with IC NTG. This may have be en the touchdown anastomotic site for the SVG to the RCA. No additional stenting performed as it jonathan eared to normalize with IC NTG. If pt continues to have anginal symptoms will consider PCI of PDA if true stenosis is present. Would hold on PCI of distal LM unless or until pt has recurrent angina or lateral ischemia on stress testing. Successful Mynx Closure of RFA. DESCRIPTION OF PROCEDURE The patient arrived to the procedure lab. The risks and benefits of the procedure as well as a full d escription of our services here and lack of surgical backup were fully explained to the patient and/o r their significant other prior to the catheterization. The Timeout was completed, verifying the lucila ect patient and procedure. The patient's procedural site was prepped and draped in the usual fashion. Local anesthetic was given subcutaneously to right groin region with Lidocaine 2%. Using a modified Seldinger technique, arterial access was obtained via the right femoral artery, a 4Fr sheath was inse rted. Left Coronary Artery selective angiography was performed in multiple views using a 4 Fr. JL5 c atheter. Right Coronary Artery selective angiography was then performed in multiple views using a 4 F r. 3DRC catheter. Left internal mammary artery graft to the LAD selective angiography was performed i n multiple views using a 4 Fr. IM catheter. Saphenous Vein graft to the RCA selective angiography was performed in multiple views using a 4 Fr. AR MOD 2 catheterThe images were reviewed a nd options discussed. A decision was then made to proceed with an Intervention, IVUS or other adjunct procedure. Arterial sheath was exchanged for a 6 Fr Sheath. hs 2 with side holes Guide catheter was inserted and engaged into the RCA. bmw Guide wire was advanced to the PDA. emerge 2.00 x 8 Balloon catheter w as advanced across lesion in the right coronary, proximal. PTCA balloon inflated at 6 atms for 8 secs . PTCA balloon inflated at 8 atms for 7 secs. PTCA balloon inflated at 8 atms for 7 secs. PTCA balloo n inflated at 10 atms for 9 secs. PTCA balloon inflated at 10 atms for 8 secs. PTCA balloon inflated at 12 atms for 9 secs. Angiogram performed post balloon dilatation. emerge 2.00 x 12 Balloon catheter was advanced across lesion in the right coronary, mid. PTCA balloon inflated at 8 atms for 11 secs. PTCA balloon inflated at 8 atms for 7 secs. PTCA balloon inflated at 8 atms for 8 secs. PTCA balloon inflated at 9 atms for 12 secs. PTCA balloon inflated at 8 atms for 9 secs. PTCA balloon inflated at 10 atms for 9 secs. PTCA balloon inflated at 10 atms for 12 secs. emerge 2.5 x 12 Balloon catheter was advanced across lesion in the right coronary, mid. PTCA balloon inflated at 6 atms for 8 secs. PTCA balloon inflated at 6 atms for 6 secs. PTCA balloon inflated at 8 atms for 10 secs. PTCA balloon inflated at 8 atms for 7 secs. PTCA balloon inflated at 8 atms for 8 secs. synergy 2.5 x 38 D rug Eluting stent was advanced across the lesion in the right coronary, mid. Angiogram performed post stent deployment. synergy 2.5 x 16 Drug Eluting stent was advanced across the lesion in the right co ronary, mid. Angiogram performed post stent deployment. synergy 3.00 x 12 Drug Eluting stent was adva nced across the lesion in the right coronary, mid. Angiogram performed post stent deployment. Contras t was injected through the sheath and the Right Iliac and Femoral artery were assessed for possible c losure device. The arterial sheath was pulled and a Mynx closure device was deployed for hemostasis CORONARY ANGIOGRAPHY DOMINANCE: Right Dominant LEFT HEART ASSESSMENT Left Ventricular Ejection Fraction: by LV Gram 65 % Normal Left Ventricular systolic function Normal LV wall motion LEFT MAIN: Mild luminal irregularities less than 30% LEFT ANTERIOR DESCENDING ARTERY: MID LAD: 85 % Stenosis CIRCUMFLEX ARTERY: Non-obstructive OM 1: Proximal - Mild luminal irregularities less than 30% RIGHT CORONARY ARTERY: PROX RCA: 85 % Stenosis MID RCA: 85 % Stenosis GRAFTS: ORTIZ graft to the LAD is patent Saphenous Vein graft to the RCA is totally occluded INTERVENTION INFORMATION LESION SITE: RCA (Mid) Lesion Complexity: High/C, lesion at bifurcation: No, thrombus present: No, lesion length: 54 mm, cul prit lesion: Yes Pre Stenosis: 85 % Pre intervention ANAID flow: 3 PROCEDURE: Drug Eluting Stent with pre dilatation. Post Stenosis: 0 % Post intervention ANAID flow: 3 Lesion Devices: Swishtronic 6 Fr HSII SH 100cm Guide Catheter Jones .014 BMW Stow Straight 190cm Wiley Sci EMERGE MR 2.00x12 BALLOON Wiley Sci EMERGE MR 2.00x08 BALLOON Wiley Sci EMERGE MR 2.50x12 BALLOON Wiley Sci Synergy MR ELEONORA 2.50x38 Wiley Sci Synergy MR ELEONORA 2.50x16 Wiley Sci Synergy MR ELEONORA 3.00x12 LESION SITE: RCA (Proximal) Lesion Complexity: Non-High/Non-C, lesion at bifurcation: No, thrombus present: No, lesion length: 12 mm, culprit lesion: No Pre Stenosis: 75 % Pre intervention ANAID flow: 3 PROCEDURE: Drug Eluting Stent Post Stenosis: 0 % Post intervention ANAID flow: 3 COMPLICATIONS No Complications PROCEDURE MEDICATIONS Versed 1 mg IV Oxygen: 2 L/min via nasal cannula Heparin 6000 unit(s) IV 03/04/2019 08:45:53 Nitro 200 mcg IC 03/04/2019 08:29:25 Nitro 200 mcg IC 03/04/2019 08:29:25 Nitro 200 mcg IC 03/04/2019 08:47:27 Nitro 200 mcg IC 03/04/2019 08:56:34 Nitro 200 mcg IC 03/04/2019 09:09:38 SUMMARY OF HEMODYNAMIC DATA Time AIR REST ECG 08:12:40 AO 121/61 (83) SA 08:24:29 LV 119/-12, 18 08:42:56 LV 115/-11, 21 08:43:03 LVp 126/0, 10 08:43:20 AOp 125/62 (88) 08:43:25 Signed By Orestes Gamez MD On 03/04/2019 09:50:07 Orestes Gamez MD
--- NOTE | 2019-03-04 09:55 | NURSING ---
report called to Beena MINOR in ICU
[2019-03-04] MEDS: 0.9% Normal Saline 1,000 ML 150 ML IV (10:00)
--- NOTE | 2019-03-04 10:36 | EKG12_ITS ---
Test Reason : Blood Pressure : / mmHG Vent. Rate : 060 BPM Atrial Rate : 060 BPM P-R Int : 170 ms QRS Dur : 080 ms QT Int : 404 ms P-R-T Axes : 000 001 042 degrees QTc Int : 404 ms Normal sinus rhythm ST & T wave abnormality, consider anterior ischemia Abnormal ECG When compared with ECG of 17-JUN-2017 11:40, T wave inversion more evident in Anterior leads Confirmed by EFREN KERNS, LIANA ([id number]), writer editor SURY KAUFMAN ([id number]) on 03/07/2019 1:34:17 PM Referred By: Bridger Serna Confirmed By:LIANA SCHWARTZ MD
[2019-03-04] MEDS: diazePAM 5 MG Tablet PO ×2 (11:24→21:43)
[2019-03-04] MEDS: Morphine 2 MG/ML Syringe IV ×2 (11:24→21:43)
[2019-03-04 11:35] LABS: Bedside Glucose 126 mg/dL (70-110)
--- NOTE | 2019-03-04 14:04 | CRPHASE1 ---
Patient Communication PHII Cardiac Rehab Discussed with Patient:: Yes Guide to Cardiac Rehab Given to Patient:: Yes Cardiac Rehab Facility Choice List Given to Patient:: Yes - chooses [facility] Choice Program [facility] CR PHII:: Communication Given to CR, Refer to [facility] Choice Program Other:: Communication Given to CR, With permission faxed order and referral information Last Picker:: Orestes Gamez Refer Phase II Cardiac Rehab:: Yes Sessions:: 36 sessions - 3 days/wk, 12 weeks Risk Factors/Lifestyle Smoking Status: Current every day smoker Hx Diabetes Mellitus Type 2: Yes Hx Dyslipidemia: Yes Hx Obesity: Yes Height: 1.68 m Weight:: 131.088 kg BMI: 46.6 Family History: Family History (Last Reviewed 03/01/19 @ 15:24 by Hyacinth Mills) Mother Kidney disease Congestive heart failure Renal failure Father CAD (coronary artery disease) Daughter Hypertension Phase I Education Given On:: [place], Nutrition, Antiplatelet medication, CHF, Smoking cessation, Diabetes - Type I, Diabetes - Type II Issues Affecting Care:: None Knowledge of Condition:: Yes Hospital Course Presenting Symptoms:: CP Cardiac Cath Date:: 03/04/19 Medical/Surgical History Diabetes:: Yes Diabetes Type II:: Yes Hypertension:: Yes Dyslipidemia:: Yes CABG: Yes Cardiac Rehabilitation Info Cardiac Rehabilitation Program Information: Cardiac Rehabilitation is important for patients like you who are recovering from a heart problem. Cardiac rehabilitation programs are recognized as integral to the continued care of the patient with coronary heart disease. The cardiac rehabilitation program is designed to optimize a patient's physical, psychological, and social functioning. Health administrator health care facility work in cardiac rehabilitation programs and assist you with getting the treatments you need to get stronger and healthier - like exercise, healthy eating habits, and medications. Cardiac rehabilitation has been show to help people with heart problems live longer and have better life enjoyment than people who do not go to cardiac rehabilitation. Please contact the Cardiac Rehabilitation Program at [facility] at in two weeks if you have not heard from them.
--- NOTE | 2019-03-04 14:07 | CRPH1.INSTRU ---
General Education CAD and cardiac anatomy and function:: Patient communicates acknowledgment Explanation of diagnoses and procedures:: Patient communicates acknowledgment Sign/Symptoms of NC:: Patient communicates acknowledgment Antiplatelet therapy: Patient communicates acknowledgment Proper use of NTG-SL: Not instructed Emergency procedures and activation of EMS: Patient communicates acknowledgment Compliance of all prescribed medications: Patient communicates acknowledgment Smoking Patient Nicotine/Smoking Risk Factors Are:: Cigarettes Nicotine/Smoking Response Code:: Patient communicates acknowledgment Dyslipidemia Dyslipidemia Response Code:: Patient communicates acknowledgment Overweight/Obesity Patient Overweight/Obesity Risk Factors Are:: Obesity - > or = 30 Recommendations Include:: Weight loss of 5-10%, Reduced calorie diet, Exercise 5-7 times/week Overweight/Obesity:: Patient communicates acknowledgment Hypertension Recommendations Include:: Maintain BP <130/85, BP <130/80 if diabetic, DASH dietary guidelines, Decrease/maintain normal body weight, Moderation of ETOH Hypertension:: Patient communicates acknowledgment Heart Disease Heart Disease Response Code:: Patient communicates acknowledgment Diabetes Recommendations Include:: Maintain fasting blood sugars 70-110 md/dL, Maintain HgbA1c of 6% or less, Monitor blood sugar as prescribed, Diabetic dietary guidelines, Decrease/maintain body weight Diabetes:: Patient communicates acknowledgment Metabolic Syndrome Metabolic Syndrome Response Code:: Patient communicates acknowledgment Sedentary Sedentary Response Code:: Patient communicates acknowledgment Stress Stress Response Code:: Patient communicates acknowledgment
[2019-03-04 18:20] LABS: Bedside Glucose 103 mg/dL (70-110)
[2019-03-04] MEDS: Metoclopramide 10 MG/2 ML Vial 5 MG IV (20:27)
[2019-03-04] MEDS: Gabapentin 300 MG Capsule PO (21:36)
[2019-03-04] MEDS: Atorvastatin Calcium 20 MG Tablet PO (21:36)
[2019-03-04 21:55] LABS: Bedside Glucose 143 mg/dL (70-110)
[2019-03-05] VITALS (12 sets, daily range): BP systolic 91–144; BP diastolic 44–93; PULSE 57–75; RESP 14–22; TEMP 36.7–36.9; O2SAT 90–97
[2019-03-05] MEDS: Morphine 2 MG/ML Syringe IV ×2 (02:24→08:37)
[2019-03-05] MEDS: 0.9% NaCl Peripheral Flush Adult/Peds IV ×2 (02:28→08:37)
[2019-03-05 04:51] LABS: Hemoglobin 14.5 g/dL (12.0-15.0); Mean Corp Hgb Conc 33.7 g/dL (32-36); Mean Corpuscular Hgb 32.2 pg (27.0-32.0); Mean Corpuscular Volume 95.6 fL (81-99); Mean Platelet Vol. 9.4 fl (6.2-12.0); Platelet Count 166 K/mm3 (150-450); RBC Distribution Width CV 13.1 % (11.6-14.6); RBC Distribution Width SD 46.1 fl (35.1-43.9); White Blood Count 7.3 K/mm3 (4.4-11.0)
[2019-03-05 05:18] LABS: ALB/GLOB Ratio 0.8 RATIO (0.9-2.4); AST(SGOT) 48 U/L (15-37); Alanine Aminotransfer ALT/SGPT 70 U/L (13-56); Albumin, Serum 2.9 g/dL (3.2-5.0); Alkaline Phosphatase 58 U/L (45-117); Anion Gap 6 (5-15); BUN 9 mg/dL (7-18); BUN/Creat Ratio 14.2 RATIO (10-20); Calcium,Total 8.4 mg/dL (8.5-10.1); Chloride 109 mmol/L (98-107); Creatinine, Serum 0.63 mg/dL (0.55-1.02); EST Glomerular Filtration Rate 102 mL/min (>60); Est Glom Filt Rate - Afr Amer 123 mL/min (>60); Globulin 3.6 g/dL (2.2-4.2); Glucose 147 mg/dL (74-106); Potassium 4.5 mmol/L (3.5-5.1); Protein, Total 6.5 g/dL (6.4-8.2); Sodium Level 141 mmol/L (136-145)
[2019-03-05 08:16] LABS: Bedside Glucose 115 mg/dL (70-110)
[2019-03-05] MEDS: Aspirin E.C. 81 MG Tablet 162 MG PO (08:35)
[2019-03-05] MEDS: Clopidogrel Bisulfate 75 MG Tablet PO (08:36)
[2019-03-05] MEDS: Lisinopril 20 MG Tablet PO (08:36)
[2019-03-05] MEDS: Metoprolol(XL)Succ 50 MG Tablet PO (08:36)
--- NOTE | 2019-03-05 10:19 | DCINST_ITS ---
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 Successful PTCA/ELEONORA proximal RCA with a 3.0 x 12 Promus Synergy; 75%-->0%, no dissection. You will use the following diet at home:: Calorie/Carbohydrate Controlled (specify 1200, 1400, etc) - 1400, Cardiac Your food should be the consistency of: Regular Your liquids should be the consistency of: Regular/Thin Discharge Activity: Return to Normal Activity Call your doctor if your incision/area has: Increased Pain/ Swelling, Increased Redness, Foul Smelling Discharge Call your doctor if you observe: Fever of 101 or Higher, Shortness of breath, Dizziness, Fainting spells, Swelling in the ankles, Chest pain, Increased palpitations (irregular heartbeat) Allergies/Adverse Reactions: Allergies nickel Allergy (Verified 12/09/17 10:03) Rash Penicillins [PCN] Allergy (Verified 12/09/17 10:03) Hives nicotine patch Adverse Reaction (Severe, Uncoded 03/01/19 16:01) Terrible nightmares Medications to take at Discharge Nitroglycerin (INPATIENT USE) [Nitrostat] 0.4 mg SUBLINGUAL Q5M PRN 05/15/15 Gabapentin [Neurontin] 300 mg PO QHS 01/17/16 Albuterol Inhaler [Ventolin Hfa] 2 puff INHALATION Q4H PRN PRN 06/17/17 ipratropium-albuterol 0.5 mg-3 mg(2.5 mg base)/3 mL nebulization soln 3 ml INHALATION .QID PRN ml 02/28/19 lisinopril 10 mg tablet 20 mg PO DAILY 02/28/19 metoprolol succinate ER 50 mg tablet,extended release 24 hr 50 mg PO DAILY 02/28/19 aspirin 81 mg tablet,delayed release 162 mg PO DAILY tab 03/01/19 clopidogrel 75 mg tablet 75 mg PO .COMPLEX #30 tab 03/01/19 rosuvastatin 10 mg tablet 10 mg PO DAILY #30 tab 03/01/19 Metformin HCl [Glucophage Xr] 500 mg PO BID #0 tab 03/05/19 Orders to be completed after discharge: Phase II, Outpatient Cardiac Rehab Location: None Selected Primary Care Physician: Mac Siddiqui MD [Primary Care Provider] - Please follow up with your Primary Care Physician in: 3-5 days Test Results: Test results from this visit will be discussed in further detail at your follow- up appointment, if applicable. Please Follow Up With: Cardiology When: 1-2 weeks, call for appointment
--- NOTE | 2019-03-05 10:20 | PN.CARD_ITS ---
Subjectve: Patient seen and evaluated appears to be doing well. Objective: Vital Signs Temp Pulse Resp BP Pulse Ox 98.3 F 68 22 H 143/73 H 96 03/05/19 08:00 03/05/19 10:00 03/05/19 10:00 03/05/19 10:00 03/05/19 10:00 Oxygen Flow Rate (L/min) 2 Oxygen Delivery Method Room Air Weight: 293 lb 3.437 oz Body Mass Index (BMI) 46.7 Finger Stick Blood Glucose 113 Intake and Output for Last 24 Hours 03/03/19 03/04/19 03/05/19 23:59 23:59 23:59 Intake Total 930 / 930 2260 / 2260 300 / 300 Output Total 600 / 600 Balance 930 / 930 1660 / 1660 300 / 300 General: Awake, Alert, Oriented x 3 HEENT: PERRL, EOMI, Sclera Non Icteric Neck: Supple, Good ROM, No Lymph Node Enlargement Lungs: Clear to auscultation Cardiovascular: Regular Rhythm, Normal S1, Normal S2, No Murmurs, No Rubs, No Gallops Vascular: No Carotid Bruits, Normal Femoral Pulses, Normal Radial Pulses, Normal Dorsalis Pedal Pulse, Normal Posterior Tibial Pulses Abdomen: Bowel Sounds Present, Soft, Non Tender, No HSM, No Organomegaly Extremities: No Cyanosis, No Clubbing, No edema Musculoskeletal: No Erythema Skin: No Rashes Lymphatic: No Lymph Node Enlargement Neurological: No Focal Motor or Sensory Deficit Psych/Mental Status: Appropriate 03/05/19 04:45: WBC 7.3, RBC 4.50, Hgb 14.5, Hct 43.0, MCV 95.6, MCH 32.2 H, MCHC 33.7, Plt Count 166, MPV 9.4 03/05/19 04:45: Sodium 141, Potassium 4.5, Chloride 109 H, Carbon Dioxide 26.0, Anion Gap 6, BUN 9, Creatinine 0.63, Est GFR (MDRD) Af Amer 123, Est GFR (MDRD) Non-Af 102, BUN/Creatinine Ratio 14.2, Glucose 147 H, Calcium 8.4 L, Total Bilirubin 0.60 Rhythm: EKG: ECHO: Stress Test: Cardiac Cath: PCI: CT Surgery: Holter monitor: EPS: PPM: CXR: Chest CT Scan: Medical Necessity - Tobacco Use Smoking Status: Current every day smoker Tobacco Use: Cigarettes Assessment/Plan 1. Coronary artery disease status post PCI * Patient is status post angioplasty and stenting of the proximal and mid right coronary artery. Has done well overnight with no complaints. I would not recommend that we make any other changes. Patient can be discharged on her current medical therapy. * * Thank you for allowing me to participate in the care of your patient. Please don't hesitate to call if any issues arise
--- NOTE | 2019-03-05 10:46 | DS.PCM_ITS ---
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 Successful PTCA/ELEONORA proximal RCA with a 3.0 x 12 Promus Synergy; 75%-->0%, no dissection. 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 Massimo Parra 2018: Hypertension (Chronic) Hyperlipidemia (Chronic) Diabetes mellitus, type II (Chronic) Tobacco use disorder (Chronic) Hospital Course and Treatment Imaging Results: CXR: IMPRESSION: Normal x-ray examination of the chest. Echo: Interpretation Summary The estimated ejection fraction is 65 %. Stage 1 diastolic dysfunction. Trivial tricuspid valve insufficiency. Right ventricular systolic pressure estimated to be 25 mmHg. The study was technically difficult. There is no comparison study available. Contrast injection was performed. Cardiac Cath: CLINICAL PROFILE AND CO-MORBIDITIES Indications: ACS > 24 hrs, New Onset Angina <= 2 months, Stable Known CAD Heart Failure: None Stress/Imaging Date: 06/13/01 Stress Test with SPECT MPI: Negative Angina Classification Anginal Classification w/in 2 Weeks: CCS IV CAD Presentations: Unstable angina. 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 Successful PTCA/ELEONORA proximal RCA with a 3.0 x 12 Promus Synergy; 75%-->0%, no dissection. RECOMMENDATIONS Referred for immediate PCI Medical management of non obstructive distal LM and OM unless or until pt has recurrent anginal symptoms or lateral ischemia on stress testing. Highly recommend quitting all tobacco products Follow up with primary electronic warfare technician Risk factor modification ASA Indefinitley Plavix for at least 12 months Refer for Outpatient Cardiac Rehab Follow up with Dr. Gamez Medical management of proximal PDA stenonsis which appeared to resolve with IC NTG. This may have been the touchdown anastomotic site for the SVG to the RCA. No additional stenting performed as it appeared to normalize with IC NTG. If pt continues to have anginal symptoms will consider PCI of PDA if true stenosis is present. Would hold on PCI of distal LM unless or until pt has recurrent angina or lateral ischemia on stress testing. Operations: None Procedures: 2-D Echocardiogram, Cardiac catheterization Summary of Care Provided: Per HPI: The patient is a 58 year old F with PMH as below who presents with chest pain. She is having chest pain intermittently for the last several weeks without radiation, however this week it has become more consistent and intense. This is a similar pain to what caused her to have a CABG in 2016. She saw cardiology on March 01 and they had set her up with a cardiac cath tomorrow however she became concerned because the continued chest pain so she presented to the ER. In the ER EKG was unremarkable and her to initial troponins were negative. She is morbidly obese and continues to smoke as well as being a diabetic. Per cardiology's outpatient note, she was given a prescription to take 300 mg of Plavix x1 as well as aspirin, and then transition to aspirin and Plavix daily. In the ER she was given a loading dose of aspirin as well and cardiology was consulted. Hospital Course: 1. Chest pain/CAD status post CABG/HTN/HLD/tobacco abuse/morbid obesity- 58-year-old female presented with chest pain that was intermittent for the last several weeks prior to admission, that worsened over the last week. She was taken for cardiac cath given her cardiac history even though she had 3 negative troponins and an unremarkable EKG. Her cath necessitated the placement of 3 stents in the RCA. She felt better and denies any chest pain on the day of discharge. She is also being worked up for COPD as an outpatient and does have some slight wheezing on exam. She is to continue her home inhalers as well as all of her prior medications. Including aspirin and Plavix for at least 12 months. She will need to follow-up with cardiology as an outpatient. She was strongly advised to discontinue all tobacco products and to lose weight given her morbid obesity, lifestyle modifications were discussed. I discussed this with the patient and she expressed understanding and agreement with the plan. If she has any recurrence of her chest pain she is to return to the hospital. 2. DM 2-given her contrast load she is to resume her metformin on Thursday. 3. Her other medical diagnoses were evaluated and her home medications were continued where appropriate Objective: General: Alert, Oriented x3, Cooperative, No apparent distress HEENT: Atraumatic, PERRLA, EOMI, Normocephalic Oral: Moist Mucosa Neck: Supple, No JVD Lungs: Clear to auscultation, Normal air movement, No rhonchi, No wheeze, No rales Cardiovascular: Regular rate, Regular Rhythm, Normal S1, Normal S2, No murmurs Abdomen: Soft, Non Tender, Non-Distended, No Hepato-splenomegaly, obese Extremities: No edema, Capillary Refill Less than 3 Seconds Skin: No rashes, No breakdown Neurological: Neuro grossly intact, Sensory exam intact to light touch and pain Psych/Mental Status: Normal Affect, Appropriate - Physical Exam Vital Signs Temp Pulse Resp BP Pulse Ox 98.3 F 68 22 H 143/73 H 96 03/05/19 08:00 03/05/19 10:00 03/05/19 10:00 03/05/19 10:00 03/05/19 10:00 Oxygen Flow Rate (L/min) 2 Oxygen Delivery Method Room Air Weight: 293 lb 3.437 oz Body Mass Index (BMI) 46.7 Finger Stick Blood Glucose 113 Intake and Output for Last 24 Hours 03/03/19 03/04/19 03/05/19 23:59 23:59 23:59 Intake Total 930 / 930 2260 / 2260 300 / 300 Output Total 600 / 600 Balance 930 / 930 1660 / 1660 300 / 300 Laboratory Tests Past 24 Hrs 03/05/19 03/05/19 04:45 04:45 WBC 7.3 RBC 4.50 Hgb 14.5 Hct 43.0 MCV 95.6 MCH 32.2 H MCHC 33.7 RDW Std Deviation 46.1 H RDW Coeff of Aubrey 13.1 Plt Count 166 MPV 9.4 Sodium 141 Potassium 4.5 Chloride 109 H Carbon Dioxide 26.0 Anion Gap 6 BUN 9 Creatinine 0.63 Estim Creat Clear Calc 88.90 Est GFR (MDRD) Af Amer 123 Est GFR (MDRD) Non-Af 102 BUN/Creatinine Ratio 14.2 Glucose 147 H Calcium 8.4 L Total Bilirubin 0.60 AST 48 H ALT 70 H Alkaline Phosphatase 58 Total Protein 6.5 Albumin 2.9 L Globulin 3.6 Albumin/Globulin Ratio 0.8 L POC Glucose 03/05/19 03/04/19 03/04/19 08:10 21:43 18:12 POC Glucose 115 H 143 H 103 03/04/19 11:18 POC Glucose 126 H Discharge Activity: Return to Normal Activity Call your doctor if your incision/area has: Increased Pain/ Swelling, Increased Redness, Foul Smelling Discharge Call your doctor if you observe: Fever of 101 or Higher, Shortness of breath, Dizziness, Fainting spells, Swelling in the ankles, Chest pain, Increased palpitations (irregular heartbeat) Home Medications: Medications to take at Discharge Nitroglycerin (INPATIENT USE) [Nitrostat] 0.4 mg SUBLINGUAL Q5M PRN 05/15/15 Gabapentin [Neurontin] 300 mg PO QHS 01/17/16 Albuterol Inhaler [Ventolin Hfa] 2 puff INHALATION Q4H PRN PRN 06/17/17 ipratropium-albuterol 0.5 mg-3 mg(2.5 mg base)/3 mL nebulization soln 3 ml INHALATION .QID PRN ml 02/28/19 lisinopril 10 mg tablet 20 mg PO DAILY 02/28/19 metoprolol succinate ER 50 mg tablet,extended release 24 hr 50 mg PO DAILY 02/28/19 aspirin 81 mg tablet,delayed release 162 mg PO DAILY tab 03/01/19 clopidogrel 75 mg tablet 75 mg PO .COMPLEX #30 tab 03/01/19 rosuvastatin 10 mg tablet 10 mg PO DAILY #30 tab 03/01/19 Metformin HCl [Glucophage Xr] 500 mg PO BID #0 tab 03/05/19 Other Amb Orders: Phase II, Outpatient Cardiac Rehab Location: None Selected Primary Care Physician: Mac Siddiqui MD [Primary Care Provider] - Please follow up with your Primary Care Physician in: 3-5 days Please Follow Up With: Cardiology When: 1-2 weeks, call for appointment Disposition: Home Minutes spent on discharge:: 35 Patient Condition:: Stable Medical Necessity - Tobacco Use Smoking Status: Current every day smoker Tobacco Use: Cigarettes Meaningful Use Info Meaningful Use Diagnoses (Choose all that apply): None applicable Code Visit OBSV E&M: 11877 Observation care discharge
== END 2019-03-05 11:45 | disposition home or self-care (01) ==
LOC: ED 11:46 → PCU 12:33 → ICU 03-05 00:53
PROVIDERS: Internal Medicine Cardiovascular Disease; Admitting Provider Family Medicine; Emergency Provider Emergency Medicine; Family Provider Family Medicine; PCP Family Medicine; Referring Provider Family Medicine; Visit Provider Family Medicine
DX: I25.110 Atherosclerotic heart disease of native coronary artery with unstable angina pectoris (principal); I10 Essential (primary) hypertension; E78.5 Hyperlipidemia, unspecified; E66.01 Morbid (severe) obesity due to excess calories; Z68.42 Body mass index [BMI] 45.0-49.9, adult; Z71.3 Dietary counseling and surveillance; Z95.1 Presence of aortocoronary bypass graft; Z79.899 Other long term (current) drug therapy; Z79.82 Long term (current) use of aspirin; Z79.84 Long term (current) use of oral hypoglycemic drugs; E11.9 Type 2 diabetes mellitus without complications; F17.210 Nicotine dependence, cigarettes, uncomplicated; J44.9 Chronic obstructive pulmonary disease, unspecified
CPT/HCPCS: 36415; 71045; 80048; 80053; 82962; 84484; 85025; 85027; 85347; 92928; 93005; 93306; 93459; 96361; 96374; 96375; 96376; 97802; 99152; 99153; 99218; 99285; 99406; C1760; J7030; Q9957; Q9967; A4216; C1725; C1769; C1874; C1887; C1894; C8929; C9600; G0378; J2405

== ENCOUNTER 2019-10-03 17:32 | Observation (INO) | payer MEDICAID, SELFPAY ==
[2019-03-04 14:06] VITALS: BMI 46.6
[2019-03-11 13:30] VITALS: BMI 46.5
[2019-10-03] VITALS (9 sets, daily range): BP systolic 124–155; BP diastolic 57–111; PULSE 61–80; RESP 14–18; TEMP 36.6–37; O2SAT 94–97; BMI 47.1; BMI 46.7; BMI 46.8
--- NOTE | 2019-10-03 17:52 | EKG12_ITS ---
Test Reason : CP ADMIT Blood Pressure : / mmHG Vent. Rate : 065 BPM Atrial Rate : 065 BPM P-R Int : 164 ms QRS Dur : 088 ms QT Int : 412 ms P-R-T Axes : 000 008 030 degrees QTc Int : 428 ms Normal sinus rhythm Nonspecific ST abnormality Abnormal ECG When compared with ECG of 03-OCT-2019 17:47, MANUAL COMPARISON REQUIRED, DATA IS UNCONFIRMED Confirmed by BEAU SANTOS ([id number]), editor farm journal SURY KAUFMAN ([id number]) on 10/06/2019 7:51:36 AM Referred By: DR RICHMOND Confirmed By:BEAU SANTOS
--- NOTE | 2019-10-03 17:53 | ED.DCSUM_ITS ---
History of Present Illness Chief Complaint: Chest Pain Informant: Patient Onset: Month(s) Context: Sudden Onset Timing: Intermittent Quality: Sternal chest pressure Location: Mid central sternum Current Severity: - - Presently without pain Maximum Severity: Severe Worsened by: Activity Relieved by: 3 minutes after rest Associated Symptoms: Shortness of breath, nausea and diaphoresis Narrative: Patient is 58-year-old woman with multiple risk factors for coronary disease including four-vessel bypass surgery. She has multiple stents. She states she did receive 4 aspirin in route. She is presently pain-free. She states she cannot walk 30 feet without developing midsternal chest pressure with associated symptoms. States the pain subsides quickly and goes away after 3 minutes. She took 3 nitro yesterday. She contacted her enrolled agent today who recommended she come to the emergency department. She did not contact her enrolled agent or primary care physician prior to today. She is a smoker of 2 packs/day she has 3+ pillow orthopnea. She also complains of edema of her lower extremities. She is uncertain if she is on Plavix or Brilinta. She states she is on many meds. Prior similar symptoms: Yes - Coronary chest pain Recent Illness/Hospitalization: No - Past Medical History (1) Diabetes mellitus, type II Status: Chronic (2) Hyperlipidemia Status: Chronic (3) Hypertension Status: Chronic (4) S/P CABG x 2 Status: Chronic Comment: @ [facility] per Dr. 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 Successful PTCA/ELEONORA proximal RCA with a 3.0 x 12 Promus Synergy; 75%-->0%, no dissection. (6) Tobacco use disorder Status: Chronic Past Medical History - Allergies and Home Meds Allergies/Adverse Reactions: Allergies nickel Allergy (Verified 03/09/19 13:12) Rash Penicillins [PCN] Allergy (Verified 03/09/19 13:12) Hives nicotine patch Adverse Reaction (Severe, Uncoded 03/01/19 16:01) Terrible nightmares Primary Care Physician: Mac Siddiqui MD [Primary Care Provider] - Prior records reviewed: Yes Surgical History: cholecystectomy, rotator cuff repair, total knee arthroplasty, tonsillectomy, - - caesarian section Lives: Spouse/ Significant Other Smoking Status: Current every day smoker Alcohol: None Drugs: None - Family History Paternal Family History: Family History (Last Reviewed 03/11/19 @ 13:30 by Hyacinth Mills) Mother Kidney disease Congestive heart failure Renal failure Father CAD (coronary artery disease) Daughter Hypertension Family History: Reports: Heart Disease - [place] at the age of 60 Offspring Family History: Family History (Last Reviewed 03/11/19 @ 13:30 by Hyacinth Mills) Mother Kidney disease Congestive heart failure Renal failure Father CAD (coronary artery disease) Daughter Hypertension Family History: Reports: Hypertension Review of Systems General: Denies: Chills, Fever, Malaise, Subjective Eyes: Denies: Visual changes - bilaterally, Blurred Vision - bilaterally ENT: Denies: Bilateral ear pain, Rhinorrhea, Sore throat Cardiovascular: Denies: Chest pain, Heart racing Respiratory: Reports: Dyspnea, Dyspnea on exertion, Orthopnea. Denies: Cough, Sputum, Paroxysmal nocturnal dyspnea Gastrointestinal: Reports: Nausea. Denies: Abdominal pain, Vomiting, Diarrhea, Melena, Hematochezia Genitourinary: Denies: Dysuria, Hematuria, Frequency Musculoskeletal: Reports: Swelling. Denies: Myalgias, Arthralgias, Neck pain, Back pain, Extremity Pain Skin: Denies: Rash, Wounds Neurological: Denies: Weakness, Parasthesia Endocrine: Denies: Polyuria, Polydipsia Hematologic: Denies: Easy bruising, Easy bleeding Allergy: Denies: Uticaria Physical Exam Vital Signs/Narrative: Vital Signs Temp Pulse Resp BP Pulse Ox 10/03/19 17:38 98.0 F 80 18 135/111 H 97 10/03/19 17:33 98.0 F 80 18 135/111 H 97 Inital Vital Signs reviewed: Yes General: Well nourished, Well developed, Obese Head: Normocephalic, Atraumatic Eyes: Perrl, EOMI. Negative for: Pale conjunctiva, Scleral icterus ENT: Moist mucous membranes, No rhinorrhea, TM's clear Neck: Supple, Nontender, No lymphadenopathy, No JVD Cardiovascular: Regular rate, Regular rhythm, No murmurs, Normal S1, Normal S2 Respiratory: No distress, CTA bilaterally, Chest nontender. Negative for: Rales, Rhonchi Abdomen: Soft, Nontender, Nondistended, Normal bowel sounds, No masses Rectal: Deferred Back: Nontender, Normal Inspection. Negative for: CVA tenderness, Spinal tenderness Extremities: Negative for: Nontender, No edema, Tenderness Skin: Normal color, No rash, No Trauma. Negative for: Cyanosis, Diaphoresis, Jaundice Neurological: Normal Strength, Normal Sensation. Negative for: Alert, Oriented x3, Cranial nerves II-XII grossly intact Psychological: Normal affect, Normal Mood Diagnostic/Tx/Re-eval Chest X-Ray - ED: 1 View, Read by ED Physician, Normal, Heart, Mediastinum, Bony Structures, No Acute Disease, Chronic Changes, - - Patient has chronic pulmonary changes. Sternal wires noted. Clips noted for bypass surgery. Impressions Chest X-Ray 10/03/19 18:10 IMPRESSION: Prior cardiothoracic surgery, stable mild cardiomegaly, likely mild pulmonary venous congestion Electronically Signed: Julien Dominic, at 18:26 EDT Tel , Service support , 10/03/19 18:10 Chest 1 View (Portable) [RAD] Stat Laboratory Results 10/03/19 10/03/19 17:45 17:45 WBC 9.1 RBC 4.96 Hgb 15.4 H Hct 46.2 MCV 93.1 MCH 31.0 MCHC 33.3 RDW Std Deviation 44.3 H RDW Coeff of Aubrey 13.1 Plt Count 224 MPV 9.3 Immature Gran % (Auto) 0.300 Neut % (Auto) 57.5 Lymph % (Auto) 30.9 [place] % (Auto) 9.3 Eos % (Auto) 1.2 Baso % (Auto) 0.8 Absolute Neuts (auto) 5.2 Absolute Lymphs (auto) 2.80 Nucleated RBC % 0 Sodium 139 Potassium 3.7 Chloride 104 Carbon Dioxide 28.0 Anion Gap 7 BUN 17 Creatinine 0.81 Estim Creat Clear Calc 69.14 Est GFR (MDRD) Af Amer 93 Est GFR (MDRD) Non-Af 77 BUN/Creatinine Ratio 21.0 H Glucose 152 H Calcium 8.7 Troponin I < 0.015 Case was discussed with Dr. Hussein who requested admission to the hospitalist. Report from the cardiology office was sent. Their note indicates she has been taking 2-3 nitro daily for the past several days. She did have bypass surgery in 2016, two-vessel, and has had most recent stent placed 2019. - EKG Initial EKG Interpretation: Sinus Rhythm - Sinus rhythm with a ventricular rate of 70. NH interval is 156 ms. QRS duration 90 ms. QT duration 410 ms. Murray is normal. There is nonspecific ST-T wave change as well as artifact. There is no acute ischemic changes noted. The EKG was obtained when patient was pain-free. - Medical Decision Making Presents with exertional angina. Differential is unstable angina, non-ST elevation [place], noncardiac etiology. Patient was informed in light of the fact that she was told by Dr. Gamez she would probably need another stent. Patient was treated with 1 inch Nitropaste and she is pain-free. She did receive 4 baby aspirin in route by ambulance. Patient has unstable angina. Plan is admission to PCU and cardiology to see for cardiac catheterization. - Critical Care Time Critical care time (excluding procedures): 30-74 minutes, Discussing w/Patient &/or Family/Web Development Intern, Discussing w/Consultants, Arranging Admission or Transfer - Total time 31 minutes ED Disposition - Plan for ED Patient: Disposition: Acute Care Hospital [facility] Diagnosis: Unstable angina pectoris due to coronary arteriosclerosis, Diabetes mellitus, type II, Hyperlipidemia, Hypertension Referrals: Mac Siddiqui MD [Primary Care Provider] -
[2019-10-03 18:03] LABS: Absolute Neutrophil Count 5.2 X10^3/uL (2.0-7.7); Basophil# 0.07 X10^3/uL; Basophil% 0.8 % (0-1); Eosinophil# 0.11 X10^3/uL; Eosinophils% 1.2 % (0-5); Hematocrit 46.2 % (37-47); Hemoglobin 15.4 g/dL (12.0-15.0); Lymphocyte % 30.9 % (19-41); Mean Corp Hgb Conc 33.3 g/dL (32-36); Mean Corpuscular Volume 93.1 fL (81-99); Mean Platelet Vol. 9.3 fl (6.2-12.0); Monocyte# 0.84 X10^3/uL; Monocyte% 9.3 % (0-10); NRBC Flagged by Analyzer 0 % (0-5); Neutrophil # 5.22 X10^3/uL (2.7-7.7); Neutrophil % 57.5 % (47-70); Platelet Count 224 K/mm3 (150-450); RBC Distribution Width CV 13.1 % (11.6-14.6); RBC Distribution Width SD 44.3 fl (35.1-43.9); Red Blood Count 4.96 M/mm3 (4.2-5.4); White Blood Count 9.1 K/mm3 (4.4-11.0)
[2019-10-03] MEDS: Nitroglycerin Oint 1 INCH PACKET TRANSDERM. ×2 (18:03→22:12)
--- NOTE | 2019-10-03 18:10 | RAD_ITS ---
STUDY: X-RAY CHEST REASON FOR EXAM: Female, 58 years old. CHEST PAIN TECHNIQUE: Portable chest COMPARISON: 03/03/2019 FINDINGS: There are mild bilateral pulmonary opacities. There is stable cardiomegaly. There are sternal wires. Normal mediastinum and michael. There is mild prominence of the pulmonary vascularity. Normal visualized aortic arch and descending thoracic aorta. Normal visualized thoracic spine. Normal visualized ribs, clavicles, and shoulders. There is no demonstrated abnormality of the visualized soft tissue structures of the upper abdomen. RAD/Chest 1 View (Portable) IMPRESSION: Prior cardiothoracic surgery, stable mild cardiomegaly, likely mild pulmonary venous congestion Electronically Signed: Julien Alfaro, at 18:26 EDT Tel , Service support ,
[2019-10-03 18:23] LABS: Anion Gap 7 (5-15); BUN 17 mg/dL (7-18); Calcium,Total 8.7 mg/dL (8.5-10.1); Chloride 104 mmol/L (98-107); Creatinine, Serum 0.81 mg/dL (0.55-1.02); EST Glomerular Filtration Rate 77 mL/min (>60); Est Glom Filt Rate - Afr Amer 93 mL/min (>60); Estimated Creatinine Clearance 69.14 ml/min; Glucose 152 mg/dL (74-106); Potassium 3.7 mmol/L (3.5-5.1); Sodium Level 139 mmol/L (136-145)
--- NOTE | 2019-10-03 19:02 | PCM.HP.STD ---
Problem List (1) Chest pain Status: Acute Qualifiers: Ischemic chest pain type: unspecified angina pectoris type (2) COPD (chronic obstructive pulmonary disease) Status: Suspected Qualifiers: COPD type: unspecified COPD Qualified Code(s): J44.9 - Chronic obstructive pulmonary disease, unspecified (3) Atherosclerotic heart disease of [place] coronary artery with unstable angina pectoris Status: Chronic Qualifiers: [place] vs. transplanted heart: unspecified whether [place] or transplanted heart Qualified Code(s): I25.110 - Atherosclerotic heart disease of [place] coronary artery with unstable angina pectoris (4) S/P CABG x 2 Status: Chronic Comment: @ [facility] per Dr. Massimo Parra 2018: (5) Hypertension Status: Chronic Qualifiers: Hypertension type: essential hypertension (6) Hyperlipidemia Status: Chronic Qualifiers: Hyperlipidemia type: unspecified (7) Diabetes mellitus, type II Status: Chronic Qualifiers: Diabetes mellitus intermediate accountant insulin use: without skilled nursing use Diabetes mellitus complication status: with other specified complication Qualified Code(s): E11.69 - Type 2 diabetes mellitus with other specified complication (8) Tobacco use disorder Status: Chronic History of Present Illness Date of Admission: 10/03/19 Chief Complaint: Chest pain The patient is a 58 y/o F w/ PMHx: HTN, HLD, Morbid Obesity, Diabetes mellitus type II, CAD s/p CABG x 2 and PCI LAD, RCA, Tobacco use who presents to the [facility] ED on 10/03/19 with history of chest pressure and tightness, midsternal without radiation, exertional in nature with associated dyspnea, diaphoresis without nausea or emesis rated 5-10/10 varying over the last several days prompting her Pneumatic System Conveyor Operator to refer her to the ED for evaluation and likely AM catheterization. Work-up in the ED included T 98, heart rate 80, BP 135/111, respiratory rate 18, 97% on room air, unremarkable CBC with WBC 9.1, hemoglobin 15.4, platelet 224 without shift, BMP with glucose 152, troponin less than 0.015, EKG with no evidence of acute ischemia, x-ray with evidence of prior cardiac surgery with mild cardiomegaly and mild possible pulmonary venous congestion. Patient referred to the emergency room per her invoice coder, Dr. Gamez for planned cardiac catheterization in a.m. In the ED patient administered NG TD. Past Medical History Past Medical History (Chronic Problems): Chronic Problems (Last Reviewed 03/11/19 @ 13:30 by Hyacinth Mills) Stented coronary artery (Chronic 03/03/19) LVEF: by LV gram 65 %; Double vessel CAD of the LAD and RCA; Non obstructive coronary arteries Successful PTCA/ELEONORA mid RCA with a 2.5 x 38 Promus Synergy, followed immediately upstream with a 2.5 x 16 Promus Synergy; 85%-->0%, no dissection. Successful PTCA/ELEONORA proximal RCA with a 3.0 x 12 Promus Synergy; 75%-->0%, no dissection. Dyspnea on minimal exertion (Chronic) Atherosclerotic heart disease of [place] coronary artery with unstable angina pectoris (Chronic) S/P CABG x 2 (Chronic 10/17/15) @ [facility] per Dr. Massimo Parra 2018: Hypertension (Chronic) Hyperlipidemia (Chronic) Diabetes mellitus, type II (Chronic) Tobacco use disorder (Chronic) Medical History: Medical History (Last Reviewed 03/11/19 @ 13:30 by Hyacinth Mills) Chest pain (Resolved) R07.9 Dyspnea on minimal exertion (Chronic) R06.09 Atherosclerotic heart disease of [place] coronary artery with unstable angina pectoris (Chronic) I25.110 Hypertension (Chronic) I10 Hyperlipidemia (Chronic) E78.5 Diabetes mellitus, type II (Chronic) E11.9 Tobacco use disorder (Chronic) F17.200 Allergies nickel Allergy (Verified 03/09/19 13:12) Rash Penicillins [PCN] Allergy (Verified 03/09/19 13:12) Hives nicotine patch Adverse Reaction (Severe, Uncoded 03/01/19 16:01) Terrible nightmares Home Medications: Ambulatory Orders Medication Instructions Recorded Nitroglycerin (INPATIENT USE) 0.4 mg SUBLINGUAL Q5M PRN 05/15/15 [Nitrostat] Gabapentin [Neurontin] 300 mg PO QHS 01/17/16 Albuterol Inhaler [Ventolin Hfa] 2 puff INHALATION Q4H PRN PRN 06/17/17 ipratropium 0.5 mg-albuterol 3 mg 3 ml INHALATION 4X/DAY PRN PRN ml 02/28/19 (2.5 mg base)/3 mL nebulization soln metoprolol succinate 50 mg 50 mg PO DAILY 02/28/19 tablet,extended release 24 hr aspirin 81 mg tablet,delayed 162 mg PO DAILY tab 03/01/19 release clopidogrel 75 mg tablet 75 mg PO DAILY #90 tab 05/19/19 Lisinopril [Zestril] 20 mg PO DAILY 10/03/19 Metformin HCl [Glucophage Xr] 500 mg PO BID 10/03/19 Rosuvastatin Calcium 10 mg PO DAILY 10/03/19 Surgical History: Surgical History (Last Updated 03/11/19 @ 13:36 by Hyacinth Mills) Stented coronary artery (Chronic) Onset Date: 03/03/19 Z95.5 LVEF: by LV gram 65 %; Double vessel CAD of the LAD and RCA; Non obstructive coronary arteries Successful PTCA/ELEONORA mid RCA with a 2.5 x 38 Promus Synergy, followed immediately upstream with a 2.5 x 16 Promus Synergy; 85%-->0%, no dissection. Successful PTCA/ELEONORA proximal RCA with a 3.0 x 12 Promus Synergy; 75%-->0%, no dissection. S/P CABG x 2 (Chronic) Onset Date: 10/17/15 Z95.1 @ [facility] per Dr. Massimo Parra 2018: History of Z98.891 History of arthroscopic knee surgery Z98.890 History of cholecystectomy Z90.49 History of colonoscopy Z98.890 History of esophagogastroduodenoscopy (EGD) Z98.890 History of rotator cuff surgery Z98.890 History of selective injection of anesthetic agent around lumbar nerve root Z98.890 History of tonsillectomy and adenoidectomy Z98.890 History of total right knee replacement Z96.651 History of tubal ligation Z98.51 Surgical History: cholecystectomy, rotator cuff repair, total knee arthroplasty, tonsillectomy, - - x1, right total knee replacement, left knee arthroscopic surgery, cholecystectomy, tonsillectomy, PCI x3, CABG x2. Psychiatric History: Depression DRIER TENDER NAPHTHALENE History: No pertinent DRIER TENDER NAPHTHALENE history Lives: Spouse/ Significant Other Smoking Status: Current every day smoker - 1-2 ppd cigarette tobacco usage. Tobacco Use: Cigarettes Alcohol: Occasional Drugs: None - *Family History Paternal Family History: Family History (Last Reviewed 03/11/19 @ 13:30 by Hyacinth Mills) Mother Kidney disease Congestive heart failure Renal failure Father CAD (coronary artery disease) Daughter Hypertension History Items: Heart Disease - OR at the age of 60 Offspring Family History: Family History (Last Reviewed 03/11/19 @ 13:30 by Hyacinth Mills) Mother Kidney disease Congestive heart failure Renal failure Father CAD (coronary artery disease) Daughter Hypertension History Items: Hypertension Review of Systems Constitutional: Reports: Malaise, Weakness, Fatigue. Denies: Anorexia, Chills, Fever, Weight Change HEENT: Denies: Head Aches, Sinus Congestion, Sinus Drainage Cardiovascular: Reports: Chest Pain, Chest Pressure, Chest Tightness. Denies: Light Headedness, Palpitations, Syncope Respiratory: Reports: Shortness of Breath, Shortness of breath upon exertion. Denies: Cough, Shortness of breath at rest, Sputum production Gastrointestinal: Denies: Abdominal Pain, Nausea, Vomiting Genitourinary: Denies: Dysuria Musculoskeletal: Reports: Back Pain, Joint Pain. Denies: Joint Tenderness Skin: Denies: Rash, Wounds Neurological: Denies: Numbness, Tingling, Focal weakness Psychiatric: Denies: Anxiety, Depression, Homicidal Ideations, Suicidal Ideations Hematologic/ Lymphatic: Denies: Easy Bruising, Easy Bleeding VTE Information - Inpt Only VTE Present on Admission: No VTE Mechan Device Prophylaxis: SCD's VTE Pharm Prophylaxis ordered?: Yes Patient Problems: Active and Suspected Problems (Last Reviewed 03/11/19 @ 13:30 by Hyacinth Mills) Unstable angina pectoris due to coronary arteriosclerosis (Acute) COPD (chronic obstructive pulmonary disease) (Suspected) Subjective: Seated upright in ED bed, mildly fatigued appearance, no obvious distress, rating chest discomfort at 3 out of 10. Objective: Physical Examination: General: awake, alert, oriented x 3 and cooperative, seated upright in the ED bed, no acute distress, rating pain 3 out of 10. Skin: normal color, turgor, no icterus, cyanosis. HEENT: AT/NC, EOMI, PERRLA, MMM, no carotid bruits or JVD noted. Lungs: Mildly diminished breath sounds throughout, greater bases, moderate effort, occasional end expiratory wheezing, no rales or rhonchi. Heart: Regular rate and rhythm; no gallop, rub audible. Abdomen: soft, morbidly obese, NTTP, ND, normal BS, no HSM; however, habitus makes examination difficult. Extremities: no cyanosis, clubbing, mild bilateral ankle not markedly pitting edema. Neurological: patient awake, alert, oriented x 3; cognitive function intact; pupils equally reactive to light and accomodation; cranial nerves II-XII grossly normal, moving all 4 extremities, no focal deficits, strength moderately to severely globally Arin secondary to acute presentation and complaints. Psychiatric: affect appears fatigued, no acute evidence of depressive or anxiety feelings. - Physical Exam Vitals/I&O's: Vital Signs Temp Pulse Resp BP Pulse Ox 98.0 F 70 18 155/57 H 96 10/03/19 17:38 10/03/19 18:03 10/03/19 17:38 10/03/19 18:03 10/03/19 17:52 Oxygen Delivery Method Room Air Weight: 292 lb 1.8 oz Body Mass Index (BMI) 47.1 Finger Stick Blood Glucose 113 Laboratory Results 10/03/19 17:45: WBC 9.1, RBC 4.96, Hgb 15.4 H, Hct 46.2, MCV 93.1, MCH 31.0, MCHC 33.3, RDW Std Deviation 44.3 H, RDW Coeff of Aubrey 13.1, Plt Count 224, MPV 9.3, Immature Gran % (Auto) 0.300, Neut % (Auto) 57.5, Lymph % (Auto) 30.9, [place] % (Auto) 9.3, Eos % (Auto) 1.2, Baso % (Auto) 0.8, Absolute Neuts (auto) 5.2, Absolute Lymphs (auto) 2.80, Nucleated RBC % 0 10/03/19 17:45: Sodium 139, Potassium 3.7, Chloride 104, Carbon Dioxide 28.0, Anion Gap 7, BUN 17, Creatinine 0.81, Estim Creat Clear Calc 69.14, Est GFR (MDRD) Af Amer 93, Est GFR (MDRD) Non-Af 77, BUN/Creatinine Ratio 21.0 H, Glucose 152 H, Calcium 8.7, Troponin I < 0.015 Assessment/Plan All Active Problems (Last Reviewed 03/11/19 @ 13:30 by Hyacinth Mills) Unstable angina pectoris due to coronary arteriosclerosis (Acute) Chest pain (Acute) The patient is a 58 y/o F w/ PMHx: HTN, HLD, Morbid Obesity, Diabetes mellitus type II, CAD s/p CABG x 2 and PCI LAD, RCA, Tobacco use who presents to the [facility] ED on 10/03/19 with history of chest pressure and tightness, midsternal without radiation, exertional in nature with associated dyspnea, diaphoresis without nausea or emesis rated 5-10/10 varying over the last several days prompting her Pneumatic System Conveyor Operator to refer her to the ED for evaluation and likely AM catheterization. 1. Exertional chest pain: EKG in ED with sinus rhythm with no acute evidence of ischemia, CXR w/ no acute cardiopulmonary findings, initial trop normal x1. Will admit to PCU, place on a monitored bed to assure no acute myocardial infarction with serial cardiac enzymes and EKGs. Given patient history and concerning clinical presentation will plan n.p.o. status after midnight, continue nitroglycerin transdermal patch, PRN morphine, continue aspirin, Plavix, statin, beta-jocelyn, ITZEL inhibitor therapies, cardiology consulted with plan for a.m. cardiac catheterization. FLP in AM. Magnesium requested. 2. CAD: Status post PCI x3 per patient report and CABG x2, will continue patient aspirin, Plavix, statin, beta-jocelyn, ITZEL inhibitor therapy. 3. Hypertension: Continue home regimen including lisinopril, metoprolol, PRN hydralazine. 4. Hyperlipidemia: Continue home statin regimen. AM FLP. 5. Diabetes mellitus type II with neuropathy: Hold oral home regimen, continue home gabapentin, continue ADA diet until n.p.o. status, accu checks w/ ISS. 6. Morbid Obesity: Weight loss and lifestyle changes encouraged, nutrition consulted. 7. Suspected Chronic COPD: ATC duonebs, PRN albuterol, HOB, IS parameters. 8. Tobacco Abuse: Encouraged cessation, inpatient consultation per RT, NR if desired. 9. DVT prophylaxis: SCDs, Lovenox. OBSV E&M: 15471 Initial observation care L3
--- NOTE | 2019-10-03 19:36 | EKG12_ITS ---
Test Reason : AM EKG Blood Pressure : / mmHG Vent. Rate : 070 BPM Atrial Rate : 070 BPM P-R Int : 210 ms QRS Dur : 080 ms QT Int : 382 ms P-R-T Axes : 071 008 040 degrees QTc Int : 412 ms Sinus rhythm with 1st degree A-V block Nonspecific ST abnormality Abnormal ECG When compared with ECG of 04-OCT-2019 05:58, MANUAL COMPARISON REQUIRED, DATA IS UNCONFIRMED Confirmed by BEAU SANTOS ([id number]), film or videotape editor SURY KAUFMAN ([id number]) on 10/06/2019 7:57:44 AM Referred By: YI Confirmed By:BEAU SANTOS
[2019-10-03 19:50] LABS: Partial Thromboplast Time 25.6 Seconds (24.1-36.2)
[2019-10-03] MEDS: oxyCODONE 5 MG Tablet PO (20:26)
[2019-10-03] MEDS: Gabapentin 300 MG Capsule PO (22:12)
[2019-10-03] MEDS: Atorvastatin Calcium 20 MG Tablet PO (22:12)
[2019-10-03] MEDS: Insulin Lispro 100 UNIT/ML INSULN.PEN SC (22:13)
[2019-10-03 22:26] LABS: Bedside Glucose 196 mg/dL (70-110)
[2019-10-04] VITALS (16 sets, daily range): BP systolic 101–121; BP diastolic 48–67; PULSE 59–73; RESP 16–18; TEMP 36.4–37; O2SAT 91–99
[2019-10-04] MEDS: Morphine 2 MG/ML Syringe IV ×3 (00:20→16:40)
[2019-10-04] MEDS: Ipratropium/Albuterol Sulfate 3 ML AMPUL.NEB INHALATION ×4 (00:46→19:49)
[2019-10-04] MEDS: Ondansetron 4 MG/2 ML Vial IV (04:42)
--- NOTE | 2019-10-04 05:03 | NURSING ---
While completing pt's assessment at 0420, b/p a little low, pt c/o nausea and some slight dizziness. Nitro patch removed and Zofran given. Will continue to monitor. CMast,RN
--- NOTE | 2019-10-04 05:55 | EKG12_ITS ---
Test Reason : AM EKG Blood Pressure : / mmHG Vent. Rate : 065 BPM Atrial Rate : 065 BPM P-R Int : 200 ms QRS Dur : 078 ms QT Int : 390 ms P-R-T Axes : 062 003 043 degrees QTc Int : 405 ms Normal sinus rhythm Nonspecific ST and T wave abnormality Abnormal ECG When compared with ECG of 03-OCT-2019 20:17, MANUAL COMPARISON REQUIRED, DATA IS UNCONFIRMED Confirmed by BEAU SANTOS ([id number]), editor publications SURY KAUFMAN ([id number]) on 10/06/2019 8:02:17 AM Referred By: DR RICHMOND Confirmed By:BEAU SANTOS
[2019-10-04 06:19] LABS: Absolute Lymphocyte Count 3.35 X10^3/uL (0.83-4.51); Absolute Neutrophil Count 4.8 X10^3/uL (2.0-7.7); Basophil# 0.08 X10^3/uL; Basophil% 0.9 % (0-1); Eosinophil# 0.19 X10^3/uL; Hematocrit 43.7 % (37-47); Hemoglobin 14.4 g/dL (12.0-15.0); Lymphocyte # 3.35 X10^3/ul (4.0); Lymphocyte % 35.9 % (19-41); Mean Corpuscular Hgb 31.2 pg (27.0-32.0); Mean Corpuscular Volume 94.6 fL (81-99); Mean Platelet Vol. 9.6 fl (6.2-12.0); Monocyte# 0.89 X10^3/uL; Monocyte% 9.5 % (0-10); NRBC Flagged by Analyzer 0 % (0-5); Neutrophil # 4.79 X10^3/uL (2.7-7.7); Neutrophil % 51.4 % (47-70); Platelet Count 187 K/mm3 (150-450); RBC Distribution Width CV 13.1 % (11.6-14.6); Red Blood Count 4.62 M/mm3 (4.2-5.4); White Blood Count 9.3 K/mm3 (4.4-11.0)
[2019-10-04 06:24] LABS: International Normalized Ratio 1.1; Prothrombin Time (Protime)PT. 13.9 SECONDS (11.7-14.9)
[2019-10-04 06:41] LABS: Bedside Glucose 116 mg/dL (70-110)
[2019-10-04 06:53] LABS: Anion Gap 5 (5-15); BUN 15 mg/dL (7-18); BUN/Creat Ratio 22.1 RATIO (10-20); Calcium,Total 8.4 mg/dL (8.5-10.1); Chloride 109 mmol/L (98-107); Cholesterol 179 mg/dL (200); Creatinine, Serum 0.68 mg/dL (0.55-1.02); EST Glomerular Filtration Rate 94 mL/min (>60); Est Glom Filt Rate - Afr Amer 113 mL/min (>60); Estimated Creatinine Clearance 82.36 ml/min; Glucose 107 mg/dL (74-106); High Density Lipoprotein 43 mg/dL; Potassium 4.1 mmol/L (3.5-5.1); Sodium Level 140 mmol/L (136-145); Triglycerides 188 mg/dL; Very Low Density Lipoprotein 38 mg/dL (5-40)
--- NOTE | 2019-10-04 08:26 | CON.PCM_ITS ---
<Terrance Sierra - Last Filed: 10/04/19 09:08> Problem List (1) Chest pain Status: Acute Qualifiers: Ischemic chest pain type: unspecified angina pectoris type (2) Atherosclerotic heart disease of [place] coronary artery with unstable angina pectoris Status: Chronic Qualifiers: [place] vs. transplanted heart: unspecified whether [place] or transplanted heart Qualified Code(s): I25.110 - Atherosclerotic heart disease of [place] coronary artery with unstable angina pectoris (3) Hypertension Status: Chronic Qualifiers: Hypertension type: essential hypertension Qualified Code(s): I10 - Essential (primary) hypertension (4) Hyperlipidemia Status: Chronic Qualifiers: Hyperlipidemia type: unspecified Qualified Code(s): E78.5 - Hyperlipidemia, unspecified Reason for Consult Date of Consultation: 10/04/19 Reason for Consultation: Chest pain History of Present Illness: The patient is a 58 year old F who presented to [facility] Emergency Department on 10/03/2019 with sternal chest pressure. She has a past medical history of coronary artery disease status two-vessel bypass surgery at [facility] in [address] Parra with a ORTIZ to LAD and saphenous vein graft to RCA. She also underwent successful PTCA/ELEONORA to mid RCA and proximal RCA on 03/04/2019. At that time, her proximal PDA stenosis appeared to resolve with intracoronary nitroglycerin and there was noted to be distal left main stenosis with segued into the left circumflex which was unprotected from any bypass grafts. Her SVG to RCA was noted to be totally occluded and her ORTIZ to LAD was noted to be patent. She also has a past medical history of hypertension, current tobacco abuse, hyperlipidemia, and obesity. Patient's chest pain was noted to be exertional. This resolved with inactivity. She utilized 3 nitroglycerin prior to ER presentation. Her laboratory results revealed a WBC of 9.1, hemoglobin of 15.4, platelet count of 224, sodium of 139, potassium of 3.7, creatinine of 0.81, glucose of 152, and troponin of less than 0.015. Her EKG revealed sinus rhythm without acute ST or T wave changes. She was admitted for further evaluation and cardiology was consulted for further input. Past Medical History Allergies/Adverse Reactions: Allergies nickel Allergy (Verified 03/09/19 13:12) Rash Penicillins [PCN] Allergy (Verified 03/09/19 13:12) Hives nicotine patch Adverse Reaction (Severe, Uncoded 03/01/19 16:01) Terrible nightmares Home Medications: Ambulatory Orders Medication Instructions Recorded Nitroglycerin (INPATIENT USE) 0.4 mg SUBLINGUAL Q5M PRN 05/15/15 [Nitrostat] Gabapentin [Neurontin] 300 mg PO QHS 01/17/16 Albuterol Inhaler [Ventolin Hfa] 2 puff INHALATION Q4H PRN PRN 06/17/17 ipratropium 0.5 mg-albuterol 3 mg 3 ml INHALATION 4X/DAY PRN PRN ml 02/28/19 (2.5 mg base)/3 mL nebulization soln metoprolol succinate 50 mg 50 mg PO DAILY 02/28/19 tablet,extended release 24 hr aspirin 81 mg tablet,delayed 162 mg PO DAILY tab 03/01/19 release clopidogrel 75 mg tablet 75 mg PO DAILY #90 tab 05/19/19 Lisinopril [Zestril] 20 mg PO DAILY 10/03/19 Metformin HCl [Glucophage Xr] 500 mg PO BID 10/03/19 rosuvastatin 10 mg tablet 20 mg PO DAILY tab 10/04/19 Past Medical History (Chronic Problems): Chronic Problems (Last Reviewed 03/11/19 @ 13:30 by Hyacinth Mills) Stented coronary artery (Chronic 03/03/19) LVEF: by LV gram 65 %; Double vessel CAD of the LAD and RCA; Non obstructive coronary arteries Successful PTCA/ELEONORA mid RCA with a 2.5 x 38 Promus Synergy, followed immediately upstream with a 2.5 x 16 Promus Synergy; 85%-->0%, no dissection. Successful PTCA/ELEONORA proximal RCA with a 3.0 x 12 Promus Synergy; 75%-->0%, no dissection. Dyspnea on minimal exertion (Chronic) Atherosclerotic heart disease of [place] coronary artery with unstable angina pectoris (Chronic) S/P CABG x 2 (Chronic 10/17/15) @ [facility] per Dr. Massimo Parra 2018: Hypertension (Chronic) Hyperlipidemia (Chronic) Diabetes mellitus, type II (Chronic) Tobacco use disorder (Chronic) Surgical History: cholecystectomy, rotator cuff repair, total knee arthroplasty, tonsillectomy, - - x1, right total knee replacement, left knee arthroscopic surgery, cholecystectomy, tonsillectomy, PCI x3, CABG x2. Psychiatric History: Depression SNIPPER History: No pertinent SNIPPER history - *Family History Paternal Family History: Family History (Last Reviewed 03/11/19 @ 13:30 by Hyacinth Mills) Mother Kidney disease Congestive heart failure Renal failure Father CAD (coronary artery disease) Daughter Hypertension History Items: Heart Disease - CT at the age of 60 Offspring Family History: Family History (Last Reviewed 03/11/19 @ 13:30 by Hyacinth Mills) Mother Kidney disease Congestive heart failure Renal failure Father CAD (coronary artery disease) Daughter Hypertension History Items: Hypertension Lives: Spouse/ Significant Other Smoking Status: Current every day smoker Tobacco Use: Cigarettes Alcohol: Occasional Drugs: None Review of Systems - Review of Systems General: Denies: Fever, Fatigue, Malaise, Chills HEENT: Denies: Vision Change Cardiovascular: Reports: Chest Discomfort, Chest Discomfort with Exertion, Chest Pressure, Shortness of Breath, Shortness of Breath with Exertion, Orthopnea. Denies: Chest Discomfort at Rest, Chest Tightness, Chest Heaviness, Shortness of Breath at Rest, PND, Peripheral Edema, Palpitations, Lightheadedness, Dizziness, Near Syncope, Syncope, Orthostatic Symptoms, Claudication Respiratory: Denies: Cough Skin: Denies: Rash Neurological: Denies: Dizziness Subjectve: Patient seen and evaluated. She denies any chest pain or shortness of breath at rest. She denies any lightness, dizziness, presyncope, or lower extremity edema. Objective: Vital Signs Temp Pulse Resp BP Pulse Ox 98.6 F 69 16 115/63 94 10/04/19 06:33 10/04/19 06:45 10/04/19 06:40 10/04/19 06:36 10/04/19 06:40 Oxygen Delivery Method Room Air Weight: 290 lb 1.6 oz Body Mass Index (BMI) 46.7 Finger Stick Blood Glucose 113 Intake and Output for Last 24 Hours 10/02/19 10/03/19 10/04/19 23:59 23:59 23:59 Intake Total 400 / 400 0 / 0 Balance 400 / 400 0 / 0 General: Healthy Appearing, Awake, Alert, Oriented x 3, Cooperative HEENT: Atraumatic Oral: Moist Mucosa Neck: No JVD Chest Wall: Midline Sternotomy Incision Lungs: Diminished Raul Bases Cardiovascular: Regular Rhythm, Normal S1, Normal S2 Vascular: No Carotid Bruits Abdomen: Bowel Sounds Present, Soft Extremities: No Cyanosis, No Clubbing, No edema, Normal Capillary Refill Musculoskeletal: No Erythema Neurological: No Focal Motor or Sensory Deficit 10/03/19 17:45: WBC 9.1, RBC 4.96, Hgb 15.4 H, Hct 46.2, MCV 93.1, MCH 31.0, MCHC 33.3, Plt Count 224, MPV 9.3, Immature Gran % (Auto) 0.300, Neut % (Auto) 57.5, Lymph % (Auto) 30.9, [place] % (Auto) 9.3, Eos % (Auto) 1.2, Baso % (Auto) 0.8, Absolute Neuts (auto) 5.2, Nucleated RBC % 0 10/03/19 17:45: Sodium 139, Potassium 3.7, Chloride 104, Carbon Dioxide 28.0, Anion Gap 7, BUN 17, Creatinine 0.81, Est GFR (MDRD) Af Amer 93, Est GFR (MDRD) Non-Af 77, BUN/Creatinine Ratio 21.0 H, Glucose 152 H, Calcium 8.7, Troponin I < 0.015 10/03/19 17:45: APTT 25.6 10/03/19 17:45: Magnesium 2.0 10/03/19 21:15: Troponin I < 0.015 10/04/19 00:11: Troponin I < 0.015 10/04/19 05:46: Sodium 140, Potassium 4.1, Chloride 109 H, Carbon Dioxide 26.0, Anion Gap 5, BUN 15, Creatinine 0.68, Est GFR (MDRD) Af Amer 113, Est GFR (MDRD) Non-Af 94, BUN/Creatinine Ratio 22.1 H, Glucose 107 H, Calcium 8.4 L, Triglycerides 188, Cholesterol 179, LDL Cholesterol 98, VLDL Cholesterol 38, HDL Cholesterol 43 10/04/19 05:46: WBC 9.3, RBC 4.62, Hgb 14.4, Hct 43.7, MCV 94.6, MCH 31.2, MCHC 33.0, Plt Count 187, MPV 9.6, Immature Gran % (Auto) 0.300, Neut % (Auto) 51.4, Lymph % (Auto) 35.9, [place] % (Auto) 9.5, Eos % (Auto) 2.0, Baso % (Auto) 0.9, Absolute Neuts (auto) 4.8, Nucleated RBC % 0 10/04/19 05:46: PT 13.9, INR 1.1 Rhythm: EKG: ECHO: 03/03/2019 Interpretation Summary The estimated ejection fraction is 65 %. Stage 1 diastolic dysfunction. Trivial tricuspid valve insufficiency. Right ventricular systolic pressure estimated to be 25 mmHg. The study was technically difficult. There is no comparison study available. Contrast injection was performed. Stress Test: Cardiac Cath: 03/04/2019 CONCLUSIONS Normal Left Ventricular systolic function LVEF: by LV gram 65 % Double vessel CAD of the LAD and RCA Non obstructive coronary arteries Successful PTCA/ELEONORA mid RCA with a 2.5 x 38 Promus Synergy, followed immediately upstream with a 2.5 x 16 Promus Synergy; 85%-->0%, no dissection. Successful PTCA/ELEONORA proximal RCA with a 3.0 x 12 Promus Synergy; 75%-->0%, no dissection. RECOMMENDATIONS Referred for immediate PCI Medical management of non obstructive distal LM and OM unless or until pt has recurrent anginal symptoms or lateral ischemia on stress testing. Highly recommend quitting all tobacco products Follow up with primary coating mixer supervisor Risk factor modification ASA Indefinitley Plavix for at least 12 months Routine post interventional care Refer for Outpatient Cardiac Rehab Manual sheath removal per protocol Follow up with Dr. Gamez Highly recommend quitting all tobacco products Follow up with primary coating mixer supervisor Risk factor modification ASA Indefinitley Plavix for at least 12 months Routine post interventional care Refer for Outpatient Cardiac Rehab Manual sheath removal per protocol Medical management of proximal PDA stenonsis which appeared to resolve with IC NTG. This may have been the touchdown anastomotic site for the SVG to the RCA. No additional stenting performed as it appeared to normalize with IC NTG. If pt continues to have anginal symptoms will consider PCI of PDA if true stenosis is present. Would hold on PCI of distal LM unless or until pt has recurrent angina or lateral ischemia on stress testing. Successful Mynx Closure of RFA. CORONARY ANGIOGRAPHY DOMINANCE: Right Dominant LEFT HEART ASSESSMENT Left Ventricular Ejection Fraction: by LV Gram 65 % Normal Left Ventricular systolic function Normal LV wall motion LEFT MAIN: Mild luminal irregularities less than 30% LEFT ANTERIOR DESCENDING ARTERY: MID LAD: 85 % Stenosis CIRCUMFLEX ARTERY: Non-obstructive OM 1: Proximal - Mild luminal irregularities less than 30% RIGHT CORONARY ARTERY: PROX RCA: 85 % Stenosis MID RCA: 85 % Stenosis GRAFTS: ORTIZ graft to the LAD is patent Saphenous Vein graft to the RCA is totally occluded PCI: CT Surgery: Holter monitor: EPS: PPM: CXR: Chest CT Scan: Assessment/Plan 1. Chest pain * Patient has expressed previous exertional chest pain on multiple accounts. Her most recent heart catheterization February 2019 resulted in drug-eluting stent placement to mid RCA and proximal RCA. Her ORTIZ to LAD was noted to be patent. Her SVG to RCA was noted to be occluded. * At this time, patient's troponin x3 has been negative. Her EKG is negative for acute ST changes. * She will undergo a dobutamine stress echo to rule out coronary artery disease component. * If this is negative, we can consider adding antianginal agents such as amlodipine, isosorbide, or Ranexa. * Depending on overall progress/test results and symptoms, she may require heart catheterization to assess further. 2. Atherosclerotic coronary artery disease * Continue with Aspirin, Plavix, lisinopril, metoprolol, and rosuvastatin. 3. Hypertension * Patient's blood pressure is well-controlled. We will continue to monitor. We will not make any medication regimen changes. 4. Hyperlipidemia * Lipid panel from 10/04/2019 showed cholesterol: 179, HDL: 43, LDL: 98, and triglycerides: 188. * We will increase rosuvastatin to 20 mg p.o. daily and repeat lipid and liver profile in approximately 3-6 months. 5. Tobacco abuse * Patient continues to smoke. She received extensive education regarding the health benefits of smoking cessation. We will continue to support and encourage smoking cessation. 6. Diabetes mellitus * This be managed by primary team. She was reminded importance of diabetic control relation to cardiovascular health. She acknowledged understanding. Patient case was reviewed with Dr. Gamez, who also personally evaluated patient. Please see his dictation for further details and input. Thank you for allowing us to participate in the patients plan of care, if you have any questions please do not hesitate to call. This note was generated using a voice recognition system and there may be incorrect words, spelling or punctuation that were not noted when reviewing the office note prior to saving. <Orestes Gamez - Last Filed: 10/04/19 10:09> Problem List (1) Unstable angina pectoris due to coronary arteriosclerosis Status: Acute (2) Stented coronary artery Status: Chronic Comment: LVEF: by LV gram 65 %; Double vessel CAD of the LAD and RCA; Non obstructive coronary arteries Successful PTCA/ELEONORA mid RCA with a 2.5 x 38 Promus Synergy, followed immediately upstream with a 2.5 x 16 Promus Synergy; 85%-->0%, no dissection. Successful PTCA/ELEONORA proximal RCA with a 3.0 x 12 Promus Synergy; 75%-->0%, no dissection. (3) Chest pain Status: Acute Qualifiers: Ischemic chest pain type: unspecified angina pectoris type (4) Dyspnea on minimal exertion Status: Chronic (5) Atherosclerotic heart disease of [place] coronary artery with unstable angina pectoris Status: Chronic Qualifiers: [place] vs. transplanted heart: unspecified whether [place] or transplanted heart Qualified Code(s): I25.110 - Atherosclerotic heart disease of [place] coronary artery with unstable angina pectoris (6) S/P CABG x 2 Status: Chronic Comment: @ [facility] per Dr. Massimo Parra 2018: (7) Hypertension Status: Chronic Qualifiers: Hypertension type: essential hypertension Qualified Code(s): I10 - Essential (primary) hypertension (8) Hyperlipidemia Status: Chronic Qualifiers: Hyperlipidemia type: unspecified Qualified Code(s): E78.5 - Hyperlipidemia, unspecified (9) Tobacco use disorder Status: Chronic Reason for Consult History of Present Illness: The patient is a 58 year old F, known patient of [employer], who was seen and evaluated in conjunction with Terrance sierra. Briefly the patient is a 58-year-old morbidly obese diabetic female with ongoing tobacco abuse, hypertension, hyperlipidemia, status post two-vessel bypass surgery in 2016. The patient returned in February 2019 and required intervention of her right coronary artery. Her SVG to the RCA was completely occluded at that time. She notes that she gar ner no significant benefit after her angioplasty. The patient now returns with recurrent substernal chest pressure with exertion, such as doing the dishes, and ambulation. She presented with hypertension, particularly diastolic hypertension, and was ruled out for myocardial infarction. She is currently undergoing a dobutamine echocardiogram with results pending. EKG showed normal sinus rhythm with no acute changes.] Past Medical History - *Family History Paternal Family History: Family History (Last Reviewed 03/11/19 @ 13:30 by Hyacinth Mills) Mother Kidney disease Congestive heart failure Renal failure Father CAD (coronary artery disease) Daughter Hypertension Offspring Family History: Family History (Last Reviewed 03/11/19 @ 13:30 by Hyacinth Mills) Mother Kidney disease Congestive heart failure Renal failure Father CAD (coronary artery disease) Daughter Hypertension Objective: Vital Signs Temp Pulse Resp BP Pulse Ox 98.6 F 69 16 115/63 94 10/04/19 06:33 10/04/19 06:45 10/04/19 06:40 10/04/19 06:36 10/04/19 06:40 Oxygen Delivery Method Room Air Weight: 290 lb 1.6 oz Body Mass Index (BMI) 46.7 Finger Stick Blood Glucose 113 Intake and Output for Last 24 Hours 10/02/19 10/03/19 10/04/19 23:59 23:59 23:59 Intake Total 400 / 400 0 / 0 Balance 400 / 400 0 / 0 10/03/19 17:45: WBC 9.1, RBC 4.96, Hgb 15.4 H, Hct 46.2, MCV 93.1, MCH 31.0, MCHC 33.3, Plt Count 224, MPV 9.3, Immature Gran % (Auto) 0.300, Neut % (Auto) 57.5, Lymph % (Auto) 30.9, [place] % (Auto) 9.3, Eos % (Auto) 1.2, Baso % (Auto) 0.8, Absolute Neuts (auto) 5.2, Nucleated RBC % 0 10/03/19 17:45: Sodium 139, Potassium 3.7, Chloride 104, Carbon Dioxide 28.0, Anion Gap 7, BUN 17, Creatinine 0.81, Est GFR (MDRD) Af Amer 93, Est GFR (MDRD) Non-Af 77, BUN/Creatinine Ratio 21.0 H, Glucose 152 H, Calcium 8.7, Troponin I < 0.015 10/03/19 17:45: APTT 25.6 10/03/19 17:45: Magnesium 2.0 10/03/19 21:15: Troponin I < 0.015 10/04/19 00:11: Troponin I < 0.015 10/04/19 05:46: Sodium 140, Potassium 4.1, Chloride 109 H, Carbon Dioxide 26.0, Anion Gap 5, BUN 15, Creatinine 0.68, Est GFR (MDRD) Af Amer 113, Est GFR (MDRD) Non-Af 94, BUN/Creatinine Ratio 22.1 H, Glucose 107 H, Calcium 8.4 L, Triglycerides 188, Cholesterol 179, LDL Cholesterol 98, VLDL Cholesterol 38, HDL Cholesterol 43 10/04/19 05:46: WBC 9.3, RBC 4.62, Hgb 14.4, Hct 43.7, MCV 94.6, MCH 31.2, MCHC 33.0, Plt Count 187, MPV 9.6, Immature Gran % (Auto) 0.300, Neut % (Auto) 51.4, Lymph % (Auto) 35.9, [place] % (Auto) 9.5, Eos % (Auto) 2.0, Baso % (Auto) 0.9, Absolute Neuts (auto) 4.8, Nucleated RBC % 0 10/04/19 05:46: PT 13.9, INR 1.1 Rhythm: EKG: ECHO: Stress Test: Pending Cardiac Cath: PCI: CT Surgery: Holter monitor: EPS: PPM: CXR: Chest CT Scan: Assessment/Plan Patient seen and examined in conjunction with Terrance sierra. I agree with his above assessment and plan. We are awaiting the results of a dobutamine echocardiogram. If this is markedly abnormal particular for inferior ischemia, and have a low threshold for repeat catheterization. In addition I will relook at her cardiac catheterization films from February 2019 to refresh my memory as to the patient's cardiac anatomy and need for repeat catheterization. In the meantime we will adjust her antihypertensive medications to ensure adequate blood pressure control. I would also recommend the patient undergo a outpatient sleep study as she has signs and symptoms of possible effective sleep apnea which may be contributing to her hypertension and fatigue. Thank you very much for the opportunity to participate in the cardiac care of your patient. Consultation time took place between 9 AM and 9:45 AM. Inpatient E&M: [id number] Init Hosp L2
--- NOTE | 2019-10-04 09:05 | STEWCON_ITS ---
Reason For Study: CHEST PAIN Stress Results Protocol: Dobutatmine Stress Echo Maximum Predicted HR: 160 bpm Target HR: 136 bpm % Maximum Predicted HR: 89 % DurationHeart Rate Stage (mm:ss) (bpm) BP Dose Comment BASELINE 60 108/56 DEFINITY 7 CC USED DURING STRESS DSE- 10 MCG 3:16 60 113/5510.00NO SX DSE- 20 MCG 3:10 112 110/6220.00CP 4/10 MIDSTERNAL DSE- 30 MCG 3:50 142 93/50 30.00CP 4/10, POUNDING IN CHEST RECOVERY 90 153/88 CP SUBSIDED Stress Duration: 10:16 mm:ss Maximum Stress HR: 142 bpm Baseline Echocardiogram Findings The estimated ejection fraction is 65 %. Stress Echo Wall motion Data Resting WM Intermediate WM Stress WM Resting Wall Motion Wall Motion Stress No regional wall motion No regional wall motion abnormalities noted. abnormalities noted. EKG Data The baseline ECG displays normal sinus rhythm. The patient was titrated from 10 mcg to a maximun of 30 mcg of dobutamine during the stress. The maximum heart rate attained was 142 beats per minute. This was 88% of maximum predicted heart rate. During dobutamine infusion, there were no ST or T wave changes noted to suggest ischemia. No arrhythmias noted. No clinical angina was noted. Interpretation Summary The estimated ejection fraction is 65 %. Normal, adequate, dobutamine echocardiogram. Negative for ischemia by EKG and echocardiographic anterior. No arrhythmias noted. Patient developed 4 out of 10 chest pain with pounding in her chest during peak infusion which subsided into recovery. No associated wall motion abnormalities or changes noted. Appropriate blood pressure response to dobutamine. Test terminated due to the attainment target heart rate. Decrease sensitivity due to poor echo windows requiring Definity agent. Final LVEF is 75%. The study was technically difficult. Contrast injection was performed. Ordering Physician: Terrance Sierra/Orestes Gamez Referring Physician: Mac Siddiqui Performed By: Johnna Robert, CAROL, RVT
--- NOTE | 2019-10-04 10:20 | PCM.PN.HOSP ---
<Daniel Kim - Last Filed: 10/04/19 10:40> Patient Problems: Active and Suspected Problems (Last Reviewed 03/11/19 @ 13:30 by Hyacinth Mills) Unstable angina pectoris due to coronary arteriosclerosis (Acute) COPD (chronic obstructive pulmonary disease) (Suspected) Reason for Visit: cp Subjective: currently no cp. Pt continues to have cp and SOB when she is up walking. She has still been smoking leading up to admit. She denies wheezing. she has nonproductive cough. no increased LE edema. No palp. Agreeable to stress test. She complains of neck pain and numbness in her left chest. Vitals/I&O's: Vital Signs Temp Pulse Resp BP Pulse Ox 98.6 F 69 16 115/63 94 10/04/19 06:33 10/04/19 06:45 10/04/19 06:40 10/04/19 06:36 10/04/19 06:40 Oxygen Delivery Method Room Air Weight: 290 lb 1.6 oz Body Mass Index (BMI) 46.7 Finger Stick Blood Glucose 113 Intake and Output for Last 24 Hours 10/02/19 10/03/19 10/04/19 23:59 23:59 23:59 Intake Total 400 / 400 0 / 0 Balance 400 / 400 0 / 0 General: Alert, Oriented x3, Cooperative HEENT: Atraumatic, PERRLA, EOMI, Normocephalic Neck: Supple, No JVD, Negative Carotid Bruits Lungs: Clear to auscultation, Normal air movement Cardiovascular: Regular rate, No murmurs Abdomen: Bowel Sounds Present, Soft, Non Tender Extremities: No edema, Capillary Refill Less than 3 Seconds Skin: No rashes, No breakdown Musculoskeletal: No Tenderness to Palpation of Joints or Extremities Neurological: Cranial nerves II-XII grossly intact Psych/Mental Status: Normal Affect, Appropriate, Alert and oriented to time, place, person, mood and affect Laboratory Results 10/03/19 17:45: WBC 9.1, RBC 4.96, Hgb 15.4 H, Hct 46.2, MCV 93.1, MCH 31.0, MCHC 33.3, RDW Std Deviation 44.3 H, RDW Coeff of Aubrey 13.1, Plt Count 224, MPV 9.3, Immature Gran % (Auto) 0.300, Neut % (Auto) 57.5, Lymph % (Auto) 30.9, [place] % (Auto) 9.3, Eos % (Auto) 1.2, Baso % (Auto) 0.8, Absolute Neuts (auto) 5.2, Absolute Lymphs (auto) 2.80, Nucleated RBC % 0 10/03/19 17:45: Sodium 139, Potassium 3.7, Chloride 104, Carbon Dioxide 28.0, Anion Gap 7, BUN 17, Creatinine 0.81, Estim Creat Clear Calc 69.14, Est GFR (MDRD) Af Amer 93, Est GFR (MDRD) Non-Af 77, BUN/Creatinine Ratio 21.0 H, Glucose 152 H, Calcium 8.7, Troponin I < 0.015 10/03/19 17:45: APTT 25.6 10/03/19 17:45: Magnesium 2.0 10/03/19 21:15: Troponin I < 0.015 10/03/19 22:08: POC Glucose 196 H 10/04/19 00:11: Troponin I < 0.015 10/04/19 05:46: Sodium 140, Potassium 4.1, Chloride 109 H, Carbon Dioxide 26.0, Anion Gap 5, BUN 15, Creatinine 0.68, Estim Creat Clear Calc 82.36, Est GFR (MDRD) Af Amer 113, Est GFR (MDRD) Non-Af 94, BUN/Creatinine Ratio 22.1 H, Glucose 107 H, Calcium 8.4 L, Triglycerides 188, Cholesterol 179, LDL Cholesterol 98, VLDL Cholesterol 38, HDL Cholesterol 43 10/04/19 05:46: WBC 9.3, RBC 4.62, Hgb 14.4, Hct 43.7, MCV 94.6, MCH 31.2, MCHC 33.0, RDW Std Deviation 45.0 H, RDW Coeff of Aubrey 13.1, Plt Count 187, MPV 9.6, Immature Gran % (Auto) 0.300, Neut % (Auto) 51.4, Lymph % (Auto) 35.9, [place] % (Auto) 9.5, Eos % (Auto) 2.0, Baso % (Auto) 0.9, Absolute Neuts (auto) 4.8, Absolute Lymphs (auto) 3.35, Nucleated RBC % 0 10/04/19 05:46: PT 13.9, INR 1.1 10/04/19 06:35: POC Glucose 116 H Current Medications Acetaminophen (Tylenol) 650 mg PO Q6H PRN PRN PRN Reason: Pain Score 1-10/Temp > 100.7 F Al Hydroxide/Mg Hydroxide (Mylanta Ii) 30 ml PO Q6H PRN PRN PRN Reason: Gastric Burning Albuterol Sulfate (Ventolin Aerosols) 2.5 mg INHALATION Q2H PRN PRN PRN Reason: dyspnea, wheezing Albuterol/Ipratropium (Duoneb) 3 ml INHALATION Q6HWA.RT [facility] Last Admin: 10/04/19 06:40 Dose: 3 ml Documented by: Aspirin (Ecotrin) 162 mg PO DAILY [facility] Atorvastatin Calcium (Lipitor) 20 mg PO QHS [facility] Last Admin: 10/03/19 22:12 Dose: 20 mg Documented by: Clopidogrel Bisulfate (Plavix) 75 mg PO DAILY [facility] Dextrose (D50w Syringe) 0 gm IV X1 PRN; Protocol PRN Reason: Hypoglycemia Enoxaparin Sodium (Lovenox) 40 mg SC DAILY [facility] Last Admin: 10/04/19 09:44 Dose: Not Given Documented by: Gabapentin (Neurontin) 300 mg PO QHS [facility] Last Admin: 10/03/19 22:12 Dose: 300 mg Documented by: Glucagon () 1 mg IM .X1 PRN PRN Reason: Hypoglycemia Guaifenesin (Robitussin) 20 ml PO Q4H PRN PRN PRN Reason: COUGH Hydralazine HCl (Apresoline Iv) 10 mg IV Q4H PRN PRN PRN Reason: SBP > 160 Insulin Human Lispro (Humalog Kwikpen (Bkc)) 0 unit SC [facility]; Protocol Last Admin: 10/04/19 06:44 Dose: Not Given Documented by: Lisinopril (Zestril) 20 mg PO DAILY [facility] Magnesium Hydroxide (Milk Of Magnesia) 30 ml PO DAILY PRN PRN PRN Reason: Constipation Melatonin (Melatonin) 3 mg PO QHS PRN PRN PRN Reason: INSOMNIA Metoprolol Succinate (Toprol Xl (Beta Elyse)) 50 mg PO DAILY [facility] Morphine Sulfate () 2 mg IV Q3H PRN PRN PRN Reason: Pain Score 6-10/10 Last Admin: 10/04/19 06:44 Dose: 2 mg Documented by: Nitroglycerin (Nitrobid) 1 inch TRANSDERM. Q8 [facility] Last Admin: 10/04/19 06:36 Dose: Not Given Documented by: Ondansetron HCl (Zofran) 4 mg IV Q8H PRN PRN PRN Reason: NAUSEA/VOMITING Last Admin: 10/04/19 04:42 Dose: 4 mg Documented by: Oxycodone HCl (Oxyir) 5 mg PO Q4H PRN PRN PRN Reason: Pain Score 4-5/10 Last Admin: 10/03/19 20:26 Dose: 5 mg Documented by: Prochlorperazine Edisylate (Compazine Iv) 5 mg IV Q4H PRN PRN PRN Reason: Breakthrough Nausea/Vomiting Psyllium Hydrophilic Mucilloid (Metamucil) 1 packet PO DAILY PRN PRN PRN Reason: Constipation Senna/Docusate Sodium (Senokot-S, Tash-Colace) 2 tablet PO BID PRN PRN PRN Reason: Constipation Sodium Chloride () 10 - 40 ml IV UD PRN PRN Reason: SALINE FLUSH Throat Lozenges (Cepacol Sore Throat Lozenge) 1 lozenge MUCOUS MEM Q2H PRN PRN PRN Reason: SORE THROAT STROKE Vital Signs/Narrative: Vital Signs Temp Pulse Resp BP Pulse Ox 10/04/19 06:45 69 10/04/19 06:40 65 16 94 10/04/19 06:36 115/63 10/04/19 06:33 98.6 F 64 16 115/63 95 Medical Necessity - Tobacco Use Smoking Status: Current every day smoker Tobacco Use: Cigarettes Assessment/Plan All Active Problems (Last Reviewed 03/11/19 @ 13:30 by Hyacinth Mills) Unstable angina pectoris due to coronary arteriosclerosis (Acute) Chest pain (Acute) 1. CP in the setting of CAD, prior CABG, prior stents - cardiology following. stress test today. EKG no changes today, nonspecific t wave abnormalities. tele neg. trop neg. cxr neg. continue asa/statin/plavix/lisinopril/metoprolol 2. HTN - stable 3. HLD - statin 4. DMt2 with morbid obesity, peripheral neuropathy - ssi, hold metformin, continue gabapentin 5. COPD - no acute exacerbation. prn aerosols. 6. nicotine abuse - allergic to patch. gum prn DVT ppx: lovenox This patient was seen by Daniel Kim PA-C under the supervision of Dr. Joaquin <Yves Joaquin - Last Filed: 10/04/19 11:45> Vitals/I&O's: Vital Signs Temp Pulse Resp BP Pulse Ox 97.6 F L 66 16 121/67 H 99 10/04/19 10:25 10/04/19 10:33 10/04/19 10:25 10/04/19 10:25 10/04/19 10:25 Oxygen Delivery Method Room Air Weight: 131.587 kg Body Mass Index (BMI) 46.7 Finger Stick Blood Glucose 113 Intake and Output for Last 24 Hours 10/02/19 10/03/19 10/04/19 23:59 23:59 23:59 Intake Total 400 / 400 0 / 0 Balance 400 / 400 0 / 0 Laboratory Results 10/03/19 17:45: WBC 9.1, RBC 4.96, Hgb 15.4 H, Hct 46.2, MCV 93.1, MCH 31.0, MCHC 33.3, RDW Std Deviation 44.3 H, RDW Coeff of Aubrey 13.1, Plt Count 224, MPV 9.3, Immature Gran % (Auto) 0.300, Neut % (Auto) 57.5, Lymph % (Auto) 30.9, [place] % (Auto) 9.3, Eos % (Auto) 1.2, Baso % (Auto) 0.8, Absolute Neuts (auto) 5.2, Absolute Lymphs (auto) 2.80, Nucleated RBC % 0 10/03/19 17:45: Sodium 139, Potassium 3.7, Chloride 104, Carbon Dioxide 28.0, Anion Gap 7, BUN 17, Creatinine 0.81, Estim Creat Clear Calc 69.14, Est GFR (MDRD) Af Amer 93, Est GFR (MDRD) Non-Af 77, BUN/Creatinine Ratio 21.0 H, Glucose 152 H, Calcium 8.7, Troponin I < 0.015 10/03/19 17:45: APTT 25.6 10/03/19 17:45: Magnesium 2.0 10/03/19 21:15: Troponin I < 0.015 10/03/19 22:08: POC Glucose 196 H 10/04/19 00:11: Troponin I < 0.015 10/04/19 05:46: Sodium 140, Potassium 4.1, Chloride 109 H, Carbon Dioxide 26.0, Anion Gap 5, BUN 15, Creatinine 0.68, Estim Creat Clear Calc 82.36, Est GFR (MDRD) Af Amer 113, Est GFR (MDRD) Non-Af 94, BUN/Creatinine Ratio 22.1 H, Glucose 107 H, Calcium 8.4 L, Triglycerides 188, Cholesterol 179, LDL Cholesterol 98, VLDL Cholesterol 38, HDL Cholesterol 43 10/04/19 05:46: WBC 9.3, RBC 4.62, Hgb 14.4, Hct 43.7, MCV 94.6, MCH 31.2, MCHC 33.0, RDW Std Deviation 45.0 H, RDW Coeff of Aubrey 13.1, Plt Count 187, MPV 9.6, Immature Gran % (Auto) 0.300, Neut % (Auto) 51.4, Lymph % (Auto) 35.9, [place] % (Auto) 9.5, Eos % (Auto) 2.0, Baso % (Auto) 0.9, Absolute Neuts (auto) 4.8, Absolute Lymphs (auto) 3.35, Nucleated RBC % 0 10/04/19 05:46: PT 13.9, INR 1.1 10/04/19 06:35: POC Glucose 116 H 10/04/19 11:29: POC Glucose 115 H Current Medications Acetaminophen (Tylenol) 650 mg PO Q6H PRN PRN PRN Reason: Pain Score 1-10/Temp > 100.7 F Al Hydroxide/Mg Hydroxide (Mylanta Ii) 30 ml PO Q6H PRN PRN PRN Reason: Gastric Burning Albuterol Sulfate (Ventolin Aerosols) 2.5 mg INHALATION Q2H PRN PRN PRN Reason: dyspnea, wheezing Albuterol/Ipratropium (Duoneb) 3 ml INHALATION Q6HWA.RT [facility] Last Admin: 10/04/19 06:40 Dose: 3 ml Documented by: Aspirin (Ecotrin) 162 mg PO DAILY [facility] Last Admin: 10/04/19 10:33 Dose: 162 mg Documented by: Atorvastatin Calcium (Lipitor) 20 mg PO QHS [facility] Last Admin: 10/03/19 22:12 Dose: 20 mg Documented by: Clopidogrel Bisulfate (Plavix) 75 mg PO DAILY [facility] Last Admin: 10/04/19 10:33 Dose: 75 mg Documented by: Dextrose (D50w Syringe) 0 gm IV X1 PRN; Protocol PRN Reason: Hypoglycemia Enoxaparin Sodium (Lovenox) 40 mg SC DAILY [facility] Last Admin: 10/04/19 09:44 Dose: Not Given Documented by: Gabapentin (Neurontin) 300 mg PO QHS [facility] Last Admin: 10/03/19 22:12 Dose: 300 mg Documented by: Glucagon () 1 mg IM .X1 PRN PRN Reason: Hypoglycemia Guaifenesin (Robitussin) 20 ml PO Q4H PRN PRN PRN Reason: COUGH Hydralazine HCl (Apresoline Iv) 10 mg IV Q4H PRN PRN PRN Reason: SBP > 160 Insulin Human Lispro (Humalog Kwikpen (Bkc)) 0 unit SC [facility]; Protocol Last Admin: 10/04/19 11:31 Dose: Not Given Documented by: Lisinopril (Zestril) 20 mg PO DAILY [facility] Last Admin: 10/04/19 10:33 Dose: 20 mg Documented by: Magnesium Hydroxide (Milk Of Magnesia) 30 ml PO DAILY PRN PRN PRN Reason: Constipation Melatonin (Melatonin) 3 mg PO QHS PRN PRN PRN Reason: INSOMNIA Metoprolol Succinate (Toprol Xl (Beta Elyse)) 50 mg PO DAILY [facility] Last Admin: 10/04/19 10:33 Dose: 50 mg Documented by: Morphine Sulfate () 2 mg IV Q3H PRN PRN PRN Reason: Pain Score 6-10/10 Last Admin: 10/04/19 06:44 Dose: 2 mg Documented by: Nitroglycerin (Nitrobid) 1 inch TRANSDERM. Q8 [facility] Last Admin: 10/04/19 06:36 Dose: Not Given Documented by: Ondansetron HCl (Zofran) 4 mg IV Q8H PRN PRN PRN Reason: NAUSEA/VOMITING Last Admin: 10/04/19 04:42 Dose: 4 mg Documented by: Oxycodone HCl (Oxyir) 5 mg PO Q4H PRN PRN PRN Reason: Pain Score 4-5/10 Last Admin: 10/03/19 20:26 Dose: 5 mg Documented by: Prochlorperazine Edisylate (Compazine Iv) 5 mg IV Q4H PRN PRN PRN Reason: Breakthrough Nausea/Vomiting Psyllium Hydrophilic Mucilloid (Metamucil) 1 packet PO DAILY PRN PRN PRN Reason: Constipation Senna/Docusate Sodium (Senokot-S, Tash-Colace) 2 tablet PO BID PRN PRN PRN Reason: Constipation Sodium Chloride () 10 - 40 ml IV UD PRN PRN Reason: SALINE FLUSH Throat Lozenges (Cepacol Sore Throat Lozenge) 1 lozenge MUCOUS MEM Q2H PRN PRN PRN Reason: SORE THROAT STROKE Vital Signs/Narrative: Vital Signs Temp Pulse Resp BP Pulse Ox 10/04/19 10:33 66 10/04/19 10:25 97.6 F L 66 16 121/67 H 99 Assessment/Plan This patient was seen in conjunction with Daniel Kim PA-C . I have independently interviewed and examined the patient and reviewed pertinent historical, laboratory, and other data. Please refer to Daniel Kim PA-C note for details of this patient's presentation, findings, and recommendations. I have reviewed Daniel Kim PA-C note and concur with documented findings. In brief, patient is a 58-year-old female with significant past cardiac history including previous CABG with subsequent stent who presented with chest pain admitted to a monitored bed for subsequent management Physical Examination: GENERAL: cooperative HEENT: Atraumatic; EYES; Anicteric, Normal Conjunctiva NECK; supple, normal thyroid, RESPIRATORY: Diminished to auscultation CARDIOVASCULAR: Regular S1 S2, GI: soft, normoactive bowel sounds, : No Renal angle tenderness; EXTREMITIES: No edema, no clubbing, MUSCULOSKELETAL: no muscle waisting NEURO: Awake; no lateralizing signs. SKIN: No Rash PSYCH; Flat affect Assessment: 1. Chest pain 2. Coronary artery disease with previous CABG and subsequent stent 3. Essential hypertension 4. Dyslipidemia 5. Diabetes mellitus type 2 6. Morbid obesity with BMI of 46.8 7. COPD 8. Tobacco dependence Recommendations: 1. I have discussed the results of my overview and impressions with the patient 2. Options for management were reviewed OBSV E&M: [id number] Initial observation care L3
[2019-10-04] MEDS: Aspirin E.C. 81 MG Tablet 162 MG PO (10:33)
[2019-10-04] MEDS: Lisinopril 20 MG Tablet PO (10:33)
[2019-10-04] MEDS: Clopidogrel Bisulfate 75 MG Tablet PO (10:33)
[2019-10-04] MEDS: Metoprolol(XL)Succ 50 MG Tablet PO (10:33)
[2019-10-04 11:36] LABS: Bedside Glucose 115 mg/dL (70-110)
--- NOTE | 2019-10-04 13:28 | CASEMGMT ---
According to [facility] website, the following are in-network tertiary facilities: [facility], [facility], [facility], [facility], [facility], [facility], [place], [facility], and . Micaela MINOR CM
[2019-10-04] MEDS: oxyCODONE 5 MG Tablet PO (14:01)
[2019-10-04 16:40] LABS: Bedside Glucose 199 mg/dL (70-110)
[2019-10-04] MEDS: 0.9% Saline Lock 10 ML Syringe IV ×2 (16:40→21:38)
[2019-10-04] MEDS: Insulin Lispro 100 UNIT/ML INSULN.PEN SC (16:40)
[2019-10-04] MEDS: Atorvastatin Calcium 20 MG Tablet PO (21:37)
[2019-10-04] MEDS: Gabapentin 300 MG Capsule PO (21:37)
[2019-10-04 21:45] LABS: Bedside Glucose 123 mg/dL (70-110)
[2019-10-05] VITALS (16 sets, daily range): BP systolic 95–137; BP diastolic 43–86; PULSE 51–68; RESP 12–18; TEMP 36.6; O2SAT 91–96
[2019-10-05] MEDS: 0.9% Saline Lock 10 ML Syringe IV (02:01)
[2019-10-05] MEDS: Ondansetron 4 MG/2 ML Vial IV (02:01)
[2019-10-05] MEDS: Morphine 2 MG/ML Syringe IV ×2 (02:01→09:50)
[2019-10-05] MEDS: 0.9% Normal Saline 1,000 ML 15 ML IV (05:46)
[2019-10-05] MEDS: Clopidogrel Bisulfate 75 MG Tablet PO (05:47)
[2019-10-05] MEDS: Aspirin E.C. 81 MG Tablet 162 MG PO (05:47)
[2019-10-05] MEDS: Lisinopril 20 MG Tablet PO (05:47)
[2019-10-05] MEDS: Metoprolol(XL)Succ 50 MG Tablet PO (05:47)
[2019-10-05] MEDS: Nitroglycerin Oint 1 INCH PACKET TRANSDERM. (05:48)
--- NOTE | 2019-10-05 05:55 | EKG12_ITS ---
Test Reason : CP Blood Pressure : / mmHG Vent. Rate : 070 BPM Atrial Rate : 070 BPM P-R Int : 156 ms QRS Dur : 090 ms QT Int : 410 ms P-R-T Axes : 000 004 044 degrees QTc Int : 442 ms Normal sinus rhythm Nonspecific ST abnormality Abnormal ECG Confirmed by EFREN KERNS, LIANA ([id number]), editorial cartoonist AMI ODEN ([id number]) on 10/06/2019 1:05:13 PM Referred By: EITAN Confirmed By:LIANA SCHWARTZ MD
[2019-10-05 06:51] LABS: Bedside Glucose 131 mg/dL (70-110)
[2019-10-05] MEDS: Ipratropium/Albuterol Sulfate 3 ML AMPUL.NEB INHALATION (07:11)
[2019-10-05] MEDS: DiphenhydrAMINE 25 MG Capsule 50 MG PO (07:53)
--- NOTE | 2019-10-05 07:53 | PN_ITS ---
Patient Problems: Active and Suspected Problems (Last Reviewed 03/11/19 @ 13:30 by Hyacinth Mills) Unstable angina pectoris due to coronary arteriosclerosis (Acute) COPD (chronic obstructive pulmonary disease) (Suspected) Reason for Visit: Chest pain Subjective: patient is a 58-year-old female with significant past cardiac history including previous CABG with subsequent stent who presented with chest pain admitted to a monitored bed for subsequent management Objective: GENERAL: cooperative HEENT: Atraumatic; EYES; Anicteric, Normal Conjunctiva NECK; supple, normal thyroid, RESPIRATORY: Diminished to auscultation CARDIOVASCULAR: Regular S1 S2, GI: soft, normoactive bowel sounds, : No Renal angle tenderness; EXTREMITIES: No edema, no clubbing, MUSCULOSKELETAL: no muscle waisting NEURO: Awake; no lateralizing signs. SKIN: No Rash PSYCH; Flat affect Vitals/I&O's: Vital Signs Temp Pulse Resp BP Pulse Ox 97.8 F 51 L 16 137/86 H 91 10/05/19 05:45 10/05/19 07:11 10/05/19 07:11 10/05/19 05:48 10/05/19 07:11 Oxygen Delivery Method Room Air Weight: 131.587 kg Body Mass Index (BMI) 46.7 Finger Stick Blood Glucose 113 Intake and Output for Last 24 Hours 10/03/19 10/04/19 10/05/19 23:59 23:59 23:59 Intake Total 400 / 400 1040 / 1040 60 / 60 Balance 400 / 400 1040 / 1040 60 / 60 Laboratory Results 10/04/19 11:29: POC Glucose 115 H 10/04/19 16:24: POC Glucose 199 H 10/04/19 21:27: POC Glucose 123 H 10/05/19 06:38: POC Glucose 131 H Current Medications Acetaminophen (Tylenol) 650 mg PO Q6H PRN PRN PRN Reason: Pain Score 1-10/Temp > 100.7 F Al Hydroxide/Mg Hydroxide (Mylanta Ii) 30 ml PO Q6H PRN PRN PRN Reason: Gastric Burning Albuterol Sulfate (Ventolin Aerosols) 2.5 mg INHALATION Q2H PRN PRN PRN Reason: dyspnea, wheezing Albuterol/Ipratropium (Duoneb) 3 ml INHALATION Q6HWA.RT [facility] Last Admin: 10/05/19 07:11 Dose: 3 ml Documented by: Aspirin (Ecotrin) 162 mg PO DAILY [facility] Last Admin: 10/05/19 05:47 Dose: 162 mg Documented by: Atorvastatin Calcium (Lipitor) 20 mg PO QHS [facility] Last Admin: 10/04/19 21:37 Dose: 20 mg Documented by: Clopidogrel Bisulfate (Plavix) 75 mg PO DAILY [facility] Last Admin: 10/05/19 05:47 Dose: 75 mg Documented by: Dextrose (D50w Syringe) 0 gm IV X1 PRN; Protocol PRN Reason: Hypoglycemia Enoxaparin Sodium (Lovenox) 40 mg SC DAILY [facility] Last Admin: 10/04/19 09:44 Dose: Not Given Documented by: Gabapentin (Neurontin) 300 mg PO QHS [facility] Last Admin: 10/04/19 21:37 Dose: 300 mg Documented by: Glucagon () 1 mg IM .X1 PRN PRN Reason: Hypoglycemia Guaifenesin (Robitussin) 20 ml PO Q4H PRN PRN PRN Reason: COUGH Hydralazine HCl (Apresoline Iv) 10 mg IV Q4H PRN PRN PRN Reason: SBP > 160 Sodium Chloride () 1,000 mls @ 15 mls/hr IV .Q48H [facility] 234 [facility]S [facility] Last Admin: 10/05/19 05:46 Dose: 15 mls/hr Documented by: Insulin Human Lispro (Humalog Kwikpen (Bkc)) 0 unit SC [facility]S [facility]; Protocol Last Admin: 10/05/19 06:50 Dose: Not Given Documented by: Lisinopril (Zestril) 20 mg PO DAILY [facility] Last Admin: 10/05/19 05:47 Dose: 20 mg Documented by: Magnesium Hydroxide (Milk Of Magnesia) 30 ml PO DAILY PRN PRN PRN Reason: Constipation Melatonin (Melatonin) 3 mg PO QHS PRN PRN PRN Reason: INSOMNIA Metoprolol Succinate (Toprol Xl (Beta Elyse)) 50 mg PO DAILY [facility] Last Admin: 10/05/19 05:47 Dose: 50 mg Documented by: Morphine Sulfate () 2 mg IV Q3H PRN PRN PRN Reason: Pain Score 6-10/10 Last Admin: 10/05/19 02:01 Dose: 2 mg Documented by: Nitroglycerin (Nitrobid) 1 inch TRANSDERM. Q8 [facility] Last Admin: 10/05/19 05:48 Dose: 1 inch Documented by: Ondansetron HCl (Zofran) 4 mg IV Q8H PRN PRN PRN Reason: NAUSEA/VOMITING Last Admin: 10/05/19 02:01 Dose: 4 mg Documented by: Oxycodone HCl (Oxyir) 5 mg PO Q4H PRN PRN PRN Reason: Pain Score 4-5/10 Last Admin: 10/04/19 14:01 Dose: 5 mg Documented by: Prochlorperazine Edisylate (Compazine Iv) 5 mg IV Q4H PRN PRN PRN Reason: Breakthrough Nausea/Vomiting Psyllium Hydrophilic Mucilloid (Metamucil) 1 packet PO DAILY PRN PRN PRN Reason: Constipation Senna/Docusate Sodium (Senokot-S, Tash-Colace) 2 tablet PO BID PRN PRN PRN Reason: Constipation Sodium Chloride () 10 - 40 ml IV UD PRN PRN Reason: SALINE FLUSH Last Admin: 10/05/19 02:01 Dose: 10 ml Documented by: Throat Lozenges (Cepacol Sore Throat Lozenge) 1 lozenge MUCOUS MEM Q2H PRN PRN PRN Reason: SORE THROAT STROKE Vital Signs/Narrative: Vital Signs Temp Pulse Resp BP Pulse Ox 10/05/19 07:11 51 L 16 91 10/05/19 05:48 67 137/86 H 10/05/19 05:47 64 137/86 H 10/05/19 05:45 97.8 F 64 18 137/86 H 96 Medical Necessity - Tobacco Use Smoking Status: Current every day smoker Tobacco Use: Cigarettes Assessment/Plan All Active Problems (Last Reviewed 03/11/19 @ 13:30 by Hyacinth Mills) Unstable angina pectoris due to coronary arteriosclerosis (Acute) Chest pain (Acute) In brief, patient is a 58-year-old female with significant past cardiac history including previous CABG with subsequent stent who presented with chest pain admitted to a monitored bed for subsequent management 1. Chest pain 2. Coronary artery disease with previous CABG and subsequent stent 3. Essential hypertension 4. Dyslipidemia 5. Diabetes mellitus type 2 6. Morbid obesity with BMI of 46.8 7. COPD 8. Tobacco dependence
--- NOTE | 2019-10-05 09:13 | CL.D_ITS ---
Patient Name: CAROL HORNER Study Date: 10/05/2019 Performing: Orestes Gamez MD Ht: 66.14 inches 168 cm : 1960 Wt: 291.01 lbs 132 kg Age: 58 Gender: female BSA: 2.35 PROCEDURE(S) PERFORMED [id number] CLINICAL PROFILE AND INDICATIONS Indications: Worsening Angina, Stable Known CAD Heart Failure: None Stress/Imaging Date: 10/04/2019Stress Echocardiogram: Indeterminant Angina Classification Anginal Classification w/in 2 Weeks: CCS II CAD Presentations: Unstable angina. Comorbidities/Risk Factors: Current/Recent Smoker (< 1year) Hypertension Dyslipidemia Prior PCI Prior CABG Diabetes Mellitus: Diabetes Therapy: Oral CONCLUSIONS Normal LV size, wall motion,and systolic function Normal Left Ventricular systolic function LVEF: by LV gram 65 % Elevated Left Ventricular End Diastolic Pressure Single vessel CAD of the LAD Non obstructive coronary arteries Widely patent proximal and mid RCA stents; distal RCA at transition to PDA with <50% stenosis; appear s much better today than at end of PCI in 02/2019. Would recommend holding off on PCI of distal RCA as it is at a significant hinge point from previou s SVG attachment(which is known previously to be occluded), and may induce strut fracture. ORTIZ to LAD not re-imaged as it was patent in 02/2019. RECOMMENDATIONS Management as per referring Cloth Framer Pt unable to take diuretics due to urinary incontinence for elevated LVEDP; Pt most likely with anxi ety and increased wall tension to explain chest pain. Will start hydralazine 10mg po bid and titrate up for elevated LVEDP. Successful TR band. DESCRIPTION OF PROCEDURE The patient arrived to the procedure lab. The risks and benefits of the procedure as well as a full d escription of our services here and current unavailability of surgical backup were fully explained to the patient and/or their significant other prior to the catheterization. The Timeout was completed, verifying the correct patient and procedure. The patient's procedural site was prepped and draped in the usual fashion. Local anesthetic was given subcutaneously to right radial region with Lidocaine 2% . Using a modified Seldinger technique, arterial access was obtained via the right radial artery, a 6 Fr sheath was inserted. Left Coronary Artery selective angiography was performed in multiple views u sing a 5 Fr. JL3.5 catheter. Right Coronary Artery selective angiography was then performed in multip le views using a 5 Fr. JR 4 catheter. Left Ventriculography was performed in MAIER projection using a 5 Fr. Pigtail catheter. LV to AO pullback pressures were then recorded.The arterial sheath was pulled and a TR Band was applied for hemostasis - 13cc air CORONARY ANGIOGRAPHY DOMINANCE: Co- Dominant LEFT HEART ASSESSMENT Left Ventricular Ejection Fraction: by LV Gram 65 % Normal LV wall motion Normal Left Ventricular systolic function LVEDP: 35 mmHg LEFT MAIN: Non-obstructive LEFT ANTERIOR DESCENDING ARTERY: PROX LAD: 75 % Stenosis CIRCUMFLEX ARTERY: Non-obstructive OM 1: Proximal - Mild luminal irregularities less than 30% RIGHT CORONARY ARTERY: PROX RCA: Previously placed stent is patent MID RCA: Previously placed stent is patent DISTAL RCA: Moderate luminal irregularities up to 50% COMPLICATIONS No Complications PROCEDURE MEDICATIONS Fentanyl 25 mcg IV Versed 1 mg IV Fentanyl 25 mcg IV Versed 1 mg IV Oxygen: 2 L/min via nasal cannula Oxygen: 4 L/min via nasal cannula Heparin diluted in 23cc Heparinized saline. Patient given 10cc IA of this solution. 10/05/2019 08:36: 03 Verapamil 2.5mg, Ntg 100mcgs, 2000 units of Heparin diluted in 23cc Heparinized saline. Patient give n 10cc IA of this solution. 10/05/2019 08:36:03 IV Bolus: .9 NaCl 400 ml total 10/05/2019 08:35:53 SUMMARY OF HEMODYNAMIC DATA Time AIR REST ECG 08:27:47 AO 102/66 (80) SA 08:40:30 LV 95/15, 25 08:48:33 LV 121/10, 33 08:49:24 LV 116/9, 35 08:49:30 LVp 124/11, 37 08:49:41 AOp 108/60 (82) 08:49:46 Signed By Orestes Gamez MD On 10/05/2019 09:15:11 Signed By Orestes Gamez MD On 10/05/2019 09:12:50 Orestes Gamez MD
--- NOTE | 2019-10-05 09:34 | DCINST_ITS ---
- Discharge Diagnoses Current Active Problems: Current Active and Chronic Problems (Last Reviewed 03/11/19 @ 13:30 by Hyacinth Mills) Unstable angina pectoris due to coronary arteriosclerosis (Acute) Hypertension (Chronic) Hyperlipidemia (Chronic) Diabetes mellitus, type II (Chronic) You will use the following diet at home:: Calorie/Carbohydrate Controlled (specify 1200, 1400, etc) - 1800, Cardiac Your food should be the consistency of: Regular Discharge Activity: Return to Normal Activity Instructions: ED Chest Pain NonCardiac Allergies/Adverse Reactions: Allergies nickel Allergy (Verified 03/09/19 13:12) Rash Penicillins [PCN] Allergy (Verified 03/09/19 13:12) Hives nicotine patch Adverse Reaction (Severe, Uncoded 03/01/19 16:01) Terrible nightmares Medications to take at Discharge Nitroglycerin (INPATIENT USE) [Nitrostat] 0.4 mg SUBLINGUAL Q5M PRN 05/15/15 Gabapentin [Neurontin] 300 mg PO QHS 01/17/16 Albuterol Inhaler [Ventolin Hfa] 2 puff INHALATION Q4H PRN PRN 06/17/17 ipratropium 0.5 mg-albuterol 3 mg (2.5 mg base)/3 mL nebulization soln 3 ml INHALATION 4X/DAY PRN PRN ml 02/28/19 metoprolol succinate 50 mg tablet,extended release 24 hr 50 mg PO DAILY 02/28/19 aspirin 81 mg tablet,delayed release 162 mg PO DAILY tab 03/01/19 clopidogrel 75 mg tablet 75 mg PO DAILY #90 tab 05/19/19 Lisinopril [Zestril] 20 mg PO DAILY 10/03/19 Metformin HCl [Glucophage Xr] 500 mg PO BID 10/03/19 rosuvastatin 10 mg tablet 20 mg PO DAILY tab 10/04/19 hydrALAZINE [Apresoline] 10 mg PO BID #120 tab 10/05/19 The following prescriptions were given: hydrALAZINE [Apresoline] 10 mg PO BID #120 tab Transmission Status: Pending to [id number] Primary Care Physician: Mac Siddiqui MD [Primary Care Provider] - Please follow up with your Primary Care Physician in: in 1-2 weeks Test Results: Test results from this visit will be discussed in further detail at your follow- up appointment, if applicable. Please Follow Up With: Orestes Gamez MD When: in 2-3 weeks Proposed Discharge Date: 10/05/19
--- NOTE | 2019-10-05 09:41 | PCM.DC.SUM ---
Discharge Date and Diagnosis - Problem List Patient Problems: Active and Suspected Problems (Last Reviewed 03/11/19 @ 13:30 by Hyacinth Mills) Unstable angina pectoris due to coronary arteriosclerosis (Acute) COPD (chronic obstructive pulmonary disease) (Suspected) Date of Admission: 10/03/19 Date of Discharge: 10/05/19 - Primary Discharge Diagnosis Active and Suspected Problems (Last Reviewed 03/11/19 @ 13:30 by Hyacinth Mills) Unstable angina pectoris due to coronary arteriosclerosis (Acute) COPD (chronic obstructive pulmonary disease) (Suspected) - Secondary Discharge Diagnosis Chronic Problems (Last Reviewed 03/11/19 @ 13:30 by Hyacinth Mills) Stented coronary artery (Chronic 03/03/19) LVEF: by LV gram 65 %; Double vessel CAD of the LAD and RCA; Non obstructive coronary arteries Successful PTCA/ELEONORA mid RCA with a 2.5 x 38 Promus Synergy, followed immediately upstream with a 2.5 x 16 Promus Synergy; 85%-->0%, no dissection. Successful PTCA/ELEONORA proximal RCA with a 3.0 x 12 Promus Synergy; 75%-->0%, no dissection. Dyspnea on minimal exertion (Chronic) Atherosclerotic heart disease of [place] coronary artery with unstable angina pectoris (Chronic) S/P CABG x 2 (Chronic 10/17/15) @ [facility] per Dr. Massimo Parra 2018: Hypertension (Chronic) Hyperlipidemia (Chronic) Diabetes mellitus, type II (Chronic) Tobacco use disorder (Chronic) Hospital Course and Treatment Imaging Results: Clinical Impression(s) from Imaging Studies Chest X-Ray 10/03/19 18:10 IMPRESSION: Prior cardiothoracic surgery, stable mild cardiomegaly, likely mild pulmonary venous congestion Electronically Signed: Julien Alfaro, at 18:26 EDT Tel , Service support , Operations: None Summary of Care Provided: In brief, patient is a 58-year-old female with significant past cardiac history including previous CABG with subsequent stent who presented with chest pain admitted to a monitored bed for subsequent management 1. Chest pain -Admitted to monitored bed did rule out [place] with serial cardiac enzymes cardiology was consulted patient underwent left heart catheterization on 10/05/[address] Gamez which demonstrated widely patent stent. Dr. Gamez recommended addition of hydralazine to patient medication therapy due to elevated LV EDP 2. Coronary artery disease -with previous CABG and subsequent stent 3. Essential hypertension -Continue with home meds with addition of hydralazine as stated above 4. Dyslipidemia -On rosuvastatin resumed on discharge 5. Diabetes mellitus type 2 -Metformin resumed on discharge 6. Morbid obesity with BMI of 46.8 -Weight loss and frequent exercise advised. 7. COPD -Exacerbation aerosol treatment as needed 8. Tobacco dependence counseled on cessation, offered nicotine patch for tobacco cravings patient instructed to follow-up with her primary care physician Dr. Siddiqui to discuss possible initiation of Chantix as outpatient Patient Problems: Active and Suspected Problems (Last Reviewed 03/11/19 @ 13:30 by Hyacinth Mills) Unstable angina pectoris due to coronary arteriosclerosis (Acute) COPD (chronic obstructive pulmonary disease) (Suspected) Objective: GENERAL: cooperative HEENT: Atraumatic; EYES; Anicteric, Normal Conjunctiva NECK; supple, normal thyroid, RESPIRATORY: Diminished to auscultation MUSCULOSKELETAL: no muscle waisting NEURO: Awake; no lateralizing signs. SKIN: No Rash PSYCH; Flat affect - Physical Exam Vitals/I&O's: Vital Signs Temp Pulse Resp BP Pulse Ox 97.8 F 51 L 16 137/86 H 91 10/05/19 05:45 10/05/19 07:11 10/05/19 07:11 10/05/19 05:48 10/05/19 07:11 Oxygen Delivery Method Room Air Weight: 131.587 kg Body Mass Index (BMI) 46.7 Finger Stick Blood Glucose 113 Intake and Output for Last 24 Hours 10/03/19 10/04/19 10/05/19 23:59 23:59 23:59 Intake Total 400 / 400 1040 / 1040 60 / 60 Balance 400 / 400 1040 / 1040 60 / 60 Laboratory Results 10/04/19 11:29: POC Glucose 115 H 10/04/19 16:24: POC Glucose 199 H 10/04/19 21:27: POC Glucose 123 H 10/05/19 06:38: POC Glucose 131 H Current Medications Acetaminophen (Tylenol) 650 mg PO Q6H PRN PRN PRN Reason: Pain Score 1-10/Temp > 100.7 F Al Hydroxide/Mg Hydroxide (Mylanta Ii) 30 ml PO Q6H PRN PRN PRN Reason: Gastric Burning Albuterol Sulfate (Ventolin Aerosols) 2.5 mg INHALATION Q2H PRN PRN PRN Reason: dyspnea, wheezing Albuterol/Ipratropium (Duoneb) 3 ml INHALATION Q6HWA.RT [facility] Last Admin: 10/05/19 07:11 Dose: 3 ml Documented by: Aspirin (Ecotrin) 162 mg PO DAILY [facility] Last Admin: 10/05/19 05:47 Dose: 162 mg Documented by: Atorvastatin Calcium (Lipitor) 20 mg PO QHS [facility] Last Admin: 10/04/19 21:37 Dose: 20 mg Documented by: Clopidogrel Bisulfate (Plavix) 75 mg PO DAILY [facility] Last Admin: 10/05/19 05:47 Dose: 75 mg Documented by: Dextrose (D50w Syringe) 0 gm IV X1 PRN; Protocol PRN Reason: Hypoglycemia Gabapentin (Neurontin) 300 mg PO QHS [facility] Last Admin: 10/04/19 21:37 Dose: 300 mg Documented by: Glucagon () 1 mg IM .X1 PRN PRN Reason: Hypoglycemia Guaifenesin (Robitussin) 20 ml PO Q4H PRN PRN PRN Reason: COUGH Hydralazine HCl (Apresoline Iv) 10 mg IV Q4H PRN PRN PRN Reason: SBP > 160 Hydralazine HCl (Apresoline) 10 mg PO BID [facility] Sodium Chloride () 1,000 mls @ 15 mls/hr IV .Q48H [facility] Last Admin: 10/05/19 05:46 Dose: 15 mls/hr Documented by: Sodium Chloride () 1,000 mls @ 250 mls/hr IV .Q4H [facility] Stop: 10/05/19 11:59 Insulin Human Lispro (Humalog Kwikpen (Bkc)) 0 unit SC ACHS [facility]; Protocol Last Admin: 10/05/19 06:50 Dose: Not Given Documented by: Lisinopril (Zestril) 20 mg PO DAILY [facility] Last Admin: 10/05/19 05:47 Dose: 20 mg Documented by: Magnesium Hydroxide (Milk Of Magnesia) 30 ml PO DAILY PRN PRN PRN Reason: Constipation Melatonin (Melatonin) 3 mg PO QHS PRN PRN PRN Reason: INSOMNIA Metoprolol Succinate (Toprol Xl (Beta Elyse)) 50 mg PO DAILY [facility] Last Admin: 10/05/19 05:47 Dose: 50 mg Documented by: Morphine Sulfate () 2 mg IV Q3H PRN PRN PRN Reason: Pain Score 6-10/10 Last Admin: 10/05/19 02:01 Dose: 2 mg Documented by: Nitroglycerin (Nitrobid) 1 inch TRANSDERM. Q8 [facility] Last Admin: 10/05/19 05:48 Dose: 1 inch Documented by: Ondansetron HCl (Zofran) 4 mg IV Q8H PRN PRN PRN Reason: NAUSEA/VOMITING Last Admin: 10/05/19 02:01 Dose: 4 mg Documented by: Oxycodone HCl (Oxyir) 5 mg PO Q4H PRN PRN PRN Reason: Pain Score 4-5/10 Last Admin: 10/04/19 14:01 Dose: 5 mg Documented by: Prochlorperazine Edisylate (Compazine Iv) 5 mg IV Q4H PRN PRN PRN Reason: Breakthrough Nausea/Vomiting Psyllium Hydrophilic Mucilloid (Metamucil) 1 packet PO DAILY PRN PRN PRN Reason: Constipation Senna/Docusate Sodium (Senokot-S, Tash-Colace) 2 tablet PO BID PRN PRN PRN Reason: Constipation Sodium Chloride () 10 - 40 ml IV UD PRN PRN Reason: SALINE FLUSH Last Admin: 10/05/19 02:01 Dose: 10 ml Documented by: Throat Lozenges (Cepacol Sore Throat Lozenge) 1 lozenge MUCOUS MEM Q2H PRN PRN PRN Reason: SORE THROAT Discharge Diet: Low fat/ Low Cholesterol, 1800 Calorie Control Diet Discharge Activity: Return to Normal Activity Home Medications: Medications to take at Discharge Nitroglycerin (INPATIENT USE) [Nitrostat] 0.4 mg SUBLINGUAL Q5M PRN 05/15/15 Gabapentin [Neurontin] 300 mg PO QHS 01/17/16 Albuterol Inhaler [Ventolin Hfa] 2 puff INHALATION Q4H PRN PRN 06/17/17 ipratropium 0.5 mg-albuterol 3 mg (2.5 mg base)/3 mL nebulization soln 3 ml INHALATION 4X/DAY PRN PRN ml 02/28/19 metoprolol succinate 50 mg tablet,extended release 24 hr 50 mg PO DAILY 02/28/19 aspirin 81 mg tablet,delayed release 162 mg PO DAILY tab 03/01/19 clopidogrel 75 mg tablet 75 mg PO DAILY #90 tab 05/19/19 Lisinopril [Zestril] 20 mg PO DAILY 10/03/19 Metformin HCl [Glucophage Xr] 500 mg PO BID 10/03/19 rosuvastatin 10 mg tablet 20 mg PO DAILY tab 10/04/19 hydrALAZINE [Apresoline] 10 mg PO BID #120 tab 10/05/19 Following Prescrptions Were Given to Patient: hydrALAZINE [Apresoline] 10 mg PO BID #120 tab Transmission Status: Pending to [facility] Primary Care Physician: Mac Siddiqui MD [Primary Care Provider] - Please follow up with your Primary Care Physician in: in 1-2 weeks Please Follow Up With: Orestes Gamez MD When: in 2-3 weeks Patient Instructions: ED Chest Pain NonCardiac Disposition: Home Minutes spent on discharge:: 35 Patient Condition:: Stable Medical Necessity - Tobacco Use Smoking Status: Current every day smoker Tobacco Use: Cigarettes Meaningful Use Info Meaningful Use Diagnoses (Choose all that apply): None applicable OBSV E&M: 08000 Observation care discharge
[2019-10-05] MEDS: hydrALAZINE 10 MG Tablet PO (09:50)
[2019-10-05] MEDS: 0.9% Normal Saline 1,000 ML 250 ML IV (09:50)
[2019-10-05] MEDS: Insulin Lispro 100 UNIT/ML INSULN.PEN SC (11:11)
[2019-10-05 11:16] LABS: Bedside Glucose 216 mg/dL (70-110)
--- NOTE | 2019-10-05 11:16 | PHA.DC.MC ---
Pharmacy Service has performed discharge medication reconciliation and counseling for this patient. 1. HYDRALAZINE 10MG PO BID The patient's discharge medication list was reviewed for discrepancies and discrepancies were resolved. Home Medications Nitroglycerin (INPATIENT USE) [Nitrostat] 0.4 mg SUBLINGUAL Q5M PRN 05/15/15 Gabapentin [Neurontin] 300 mg PO QHS 01/17/16 Albuterol Inhaler [Ventolin Hfa] 2 puff INHALATION Q4H PRN PRN 06/17/17 ipratropium 0.5 mg-albuterol 3 mg (2.5 mg base)/3 mL nebulization soln 3 ml INHALATION 4X/DAY PRN PRN ml 02/28/19 metoprolol succinate 50 mg tablet,extended release 24 hr 50 mg PO DAILY 02/28/19 aspirin 81 mg tablet,delayed release 162 mg PO DAILY tab 03/01/19 clopidogrel 75 mg tablet 75 mg PO DAILY #90 tab 05/19/19 Lisinopril [Zestril] 20 mg PO DAILY 10/03/19 Metformin HCl [Glucophage Xr] 500 mg PO BID 10/03/19 rosuvastatin 10 mg tablet 20 mg PO DAILY tab 10/04/19 hydrALAZINE [Apresoline] 10 mg PO BID #120 tab 10/05/19 The patient was counseled on the following discharge medications and changes in medications for homegoing were reviewed. The Reason for Use, instructions for use, and potential side effects were reviewed for all new medications. The patient's questions regarding all of their medications were answered. The patient was able to verbally demonstrate an understanding of their discharge medications.
== END 2019-10-05 09:38 | disposition home or self-care (01) ==
LOC: ED 18:38 → PCU 19:15
PROVIDERS: Admitting Provider Family Medicine; Emergency Provider Emergency Medicine; PCP Family Medicine; Visit Provider Internal Medicine
DX: I25.110 Atherosclerotic heart disease of native coronary artery with unstable angina pectoris (principal); E11.9 Type 2 diabetes mellitus without complications; I10 Essential (primary) hypertension; E78.5 Hyperlipidemia, unspecified; F17.210 Nicotine dependence, cigarettes, uncomplicated; J44.9 Chronic obstructive pulmonary disease, unspecified; E66.01 Morbid (severe) obesity due to excess calories; F32.9 Major depressive disorder, single episode, unspecified; E11.40 Type 2 diabetes mellitus with diabetic neuropathy, unspecified; Z68.42 Body mass index [BMI] 45.0-49.9, adult; Z71.3 Dietary counseling and surveillance; Z95.1 Presence of aortocoronary bypass graft; Z79.899 Other long term (current) drug therapy; Z79.02 Long term (current) use of antithrombotics/antiplatelets; Z79.82 Long term (current) use of aspirin; Z79.84 Long term (current) use of oral hypoglycemic drugs; R94.31 Abnormal electrocardiogram [ECG] [EKG]
CPT/HCPCS: 36415; 71045; 80048; 80061; 82962; 83735; 84484; 85025; 85610; 85730; 93005; 93017; 93350; 93458; 94640; 96361; 96374; 96375; 96376; 97802; 99152; 99153; 99218; 99285; 99406; J7030; J7040; Q9957; Q9967; A4216; C1769; C1894; C8928; G0378; J2405

== ENCOUNTER → 2021-01-22 12:41 | Outpatient (CLI) | payer MEDICAID, SELFPAY ==
[2019-03-04 14:06] VITALS: BMI 46.6
[2019-10-03 19:38] VITALS: BMI 46.7
[2021-01-22 12:17] VITALS: BMI 49.1
--- NOTE | 2021-01-22 13:10 | CT_ITS ---
STUDY: LOW DOSE CT LUNG CANCER SCREENING REASON FOR EXAM: Female, 60 years old. Lung cancer screening -- 98 pack yr history; asymptomatic, current smoker RADIATION DOSAGE (If Supplied By Facility): CTDIvol = ( 4.02 ) mGy, DLP = ( 127.88 ) mGycm TECHNIQUE: No contrast was administered. Low dose technique was utilized (average mAS-38 and kVp 120). 1.25 mm axial source images with a slice interval of 1.25-mm were reconstructed in lung windows. 2.5 mm axial source images with a slice interval of 2.5-mm were reconstructed in lung windows. 5.0 mm axial source images with a slice interval of 5.0-mm were reconstructed in soft tissue windows. Nodule measured using lung windows on PACS and/or independent workstation with automated measurement of minimum and maximum diameter. Nodule measurement reported as average diameter rounded to the nearest whole number. Growth is defined as an increase ins size of greater than 1.5 mm. COMPARISON: Comparison is made with prior chest radiograph dated 10/03/2019. NODULES: No suspicious nodules are seen at this time. Emphysema: Mild degree of increased markings in the medial aspect of the right middle lobe suggestive of scarring. Mild linear scarring at the lung bases. Endobronchial lesion: Aorta: Atherosclerotic plaque calcification of the aortic arch. Coronary arteries: Coronary artery calcification. Heart: Prior CABG. Pulmonary artery: Mediastinal nodes: Small benign-appearing mediastinal lymph nodes. Other chest and abdominal findings: CT/Low Dose CT Lung Screening IMPRESSION: Lung-RADS category 2 - Continue annual screening with LDCT in 12 months. IMPORTANT NOTES FOR USE: ACR Lung-RADS Version 1.1 Assessment Categories Release Date: 2018 Category: Coded 0-4 bases on nodule(s) with highest degree of suspicion. Negative screen is defined as categories 1 and 2; a positive screen is defined as categories 3 and 4. Category 3 and 4A nodules that are unchanged on interval CT should be coded as category 2, and individuals returned to screening in 12 months. Category 4X: Category 3 or 4 nodules with additional imaging findings that increase the suspicion of lung cancer, such as spiculation, GGN that doubles in size in 1 year, enlarged lymph notes, etc. Category Modifiers: S (significant finding unrelated to lung cancer) Electronically Signed: Mega Hewitt MD at 13:56 EDT , Service support ,
== END ==
PROVIDERS: PCP Family Medicine; Referring Provider Nurse Practitioner Family; Visit Provider Nurse Practitioner Family
DX: F17.200 Nicotine dependence, unspecified, uncomplicated (principal); Z12.2 Encounter for screening for malignant neoplasm of respiratory organs
CPT/HCPCS: 71271

== ENCOUNTER 2023-05-06 11:59 | Observation (INO) | payer MEDICAID, SELFPAY ==
[2019-03-04 14:06] VITALS: BMI 46.6
[2023-05-06] VITALS (11 sets, daily range): BP systolic 134–196; BP diastolic 65–94; PULSE 63–86; RESP 14–20; TEMP 33.8–36.8; O2SAT 93–99; BMI 47.5; BMI 46.2
[2023-05-06 12:22] LABS: Absolute Lymphocyte Count 2.59 X10^3/uL (0.83-4.51); Absolute Neutrophil Count 5.4 X10^3/uL (2.0-7.7); Basophil# 0.07 X10^3/uL; Basophil% 0.8 % (0-1); Eosinophil# 0.07 X10^3/uL; Eosinophils% 0.8 % (0-5); Hematocrit 49.5 % (37-47); Hemoglobin 16.6 g/dL (12.0-15.0); Lymphocyte # 2.59 X10^3/ul (0.83-4.51); Mean Corp Hgb Conc 33.5 g/dL (32-36); Mean Corpuscular Hgb 31.1 pg (27.0-32.0); Mean Corpuscular Volume 92.7 fL (81-99); Mean Platelet Vol. 9.8 fl (6.2-12.0); Monocyte# 0.73 X10^3/uL; Monocyte% 8.2 % (0-10); NRBC Flagged by Analyzer 0 % (0-5); Neutrophil # 5.42 X10^3/uL (2.7-7.7); Neutrophil % 60.8 % (47-70); Platelet Count 182 K/mm3 (150-450); RBC Distribution Width CV 12.9 % (11.6-14.6); RBC Distribution Width SD 43.6 fl (35.1-43.9); Red Blood Count 5.34 M/mm3 (4.2-5.4); White Blood Count 8.9 K/mm3 (4.4-11.0)
--- NOTE | 2023-05-06 12:25 | RAD_ITS ---
STUDY: X-RAY CHEST REASON FOR EXAM: Female, 62 years old. Chest pain TECHNIQUE: Single AP portable view of the chest. COMPARISON: Comparison is made with prior study dated October 03, 2019. FINDINGS: EKG electrode is seen. A 2.5 cm x 1 mm linear metallic density seen overlying the medial left upper lobe. This most likely represents a foreign object outside the patient. The lungs are clear and expanded. There is no demonstrated pleural abnormality. Sternal cerclage wires and vascular clips are present from a prior sternotomy and coronary artery bypass graft procedure (CABG). Normal mediastinum and michael. Normal visualized pulmonary arteries. There is atherosclerotic calcification of the aortic arch with tortuosity. Normal visualized thoracic spine. Normal visualized ribs, clavicles, and shoulders. There is no demonstrated abnormality of the visualized soft tissue structures of the upper abdomen. RAD/Chest 1 View (Portable) IMPRESSION: No acute abnormality is seen. Focal linear metallic density projected over medial aspect of the left upper lobe most likely representing a foreign object. Electronically Signed: Mega Hewitt MD at 12:40 EDT ,
[2023-05-06 12:44] LABS: Anion Gap 5 (5-15); BUN 9 mg/dL (7-18); BUN/Creat Ratio 12.2 RATIO (10-20); Calcium,Total 9.1 mg/dL (8.5-10.1); Chloride 108 mmol/L (98-107); Creatinine, Serum 0.74 mg/dL (0.55-1.02); EST Glomerular Filtration Rate 84 mL/min (>60); Est Glom Filt Rate - Afr Amer 102 mL/min (>60); Glucose 151 mg/dL (74-106); Potassium 4.5 mmol/L (3.5-5.1); Sodium Level 138 mmol/L (136-145); Troponin-I HS (w/2H Reflex) 8 pg/mL (3.0-54.0)
--- NOTE | 2023-05-06 13:25 | ED.VIS.CHEST ---
HPI History of Present Illness Chief Complaint: Chest Pain Informant: patient Onset/Context/Timing Onset: Weeks (2) Activity at onset: gradual Timing: Continuous Quality: Positive for Pressure Location: Substernal and Left Parasternal Worsened By: Exertion Relieved By: NTG (Sometimes) Associated Symptoms: Positive for Nausea, Dyspnea, Cough, Lightheadedness and Palpitations; Negative for Vomiting, Diaphoresis, Fever or Acid Reflux Narrative Narrative: Patient presents with chest pain that has been constant for the past 2 weeks. Patient describes it as a pressure. Patient states it is over the substernal and left parasternal area. Patient states it gets worse when she exerts herself such as walking to the bathroom. Patient states she gets short of breath with walking to the bathroom. Patient states that sometimes nitroglycerin helps but sometimes it does not. Patient admits to some nausea but denies any vomiting. Patient admits to a mild cough. Patient also admits to some palpitations and lightheadedness. CVD Risk Factors: Positive for Hypertension, Diabetes, Hypercholesterolemia, Family History 1' </=55 and Smoking PE Risk Factors: Negative for Recent Travel/Surgery, Recent Immobilization, Prior DVT or PE, Cancer or OCP + Smoking + >/=35 PFSH PFSH Medical History Atherosclerotic heart disease of [place] coronary artery with unstable angina pectoris Chest pain Diabetes mellitus, type II Dyspnea on minimal exertion Encounter for screening for malignant neoplasm of lung in current smoker with 30 pack year history or greater Hyperlipidemia Hypertension Tobacco use disorder Tobacco use disorder, continuous Home Medications nitroglycerin 0.4 mg sublingual tablet 0.4 mg sublingual Q5M PRN Chest Pain 05/15/15 [History Last Taken 06/16/17 06:00] gabapentin 300 mg capsule 300 mg PO QHS neuropathy 01/17/16 [History Last Taken 10/02/19] albuterol sulfate 90 mcg/actuation aerosol inhaler 2 puff inhalation Q4H PRN PRN Sob &/Or Wheezing 06/17/17 [History Last Taken Unknown] ipratropium 0.5 mg-albuterol 3 mg (2.5 mg base)/3 mL nebulization soln 3 ml inhalation 4X/DAY PRN PRN Sob &/Or Wheezing 02/28/19 [History Last Taken Unknown] metoprolol succinate 50 mg tablet,extended release 24 hr 50 mg PO DAILY blood pressure 02/28/19 [History Last Taken 05/05/23] aspirin 81 mg tablet,delayed release 162 mg PO DAILY heart antiplatelet 03/01/19 [History Last Taken 05/05/23] clopidogrel 75 mg tablet 75 mg PO DAILY #90 tabs 05/19/19 [Rx Last Taken 05/05/23] lisinopril 20 mg tablet 20 mg PO DAILY bp 10/03/19 [History Last Taken 05/05/23] metformin 500 mg tablet,extended release 24 hr 1,500 mg PO BID dm 10/03/19 [History Last Taken 05/05/23] rosuvastatin 10 mg tablet 20 mg PO DAILY cholesterol 10/04/19 [History Last Taken Unknown] hydralazine 10 mg tablet 12.5 mg PO BID 05/06/23 [History Last Taken 05/05/23] Allergy/AdvReac Type Severity Reaction Status Date / Time nickel Allergy Rash Verified 05/06/23 12:05 Penicillins [PCN] Allergy Hives Verified 05/06/23 12:05 nicotine [From Nicoderm CQ] AdvReac Severe TERRIBLE Verified 05/06/23 12:05 NIGHTMARES Family History Mother Kidney disease Congestive heart failure Renal failure Father CAD (coronary artery disease) Daughter Hypertension Surgical History History of arthroscopic knee surgery History of History of cholecystectomy History of colonoscopy History of esophagogastroduodenoscopy (EGD) History of left heart catheterization (10/05/19) History of rotator cuff surgery History of selective injection of anesthetic agent around lumbar nerve root History of tonsillectomy and adenoidectomy History of total right knee replacement History of tubal ligation S/P CABG x 2 (10/17/15) Stented coronary artery (03/03/19) Social History Smoking Status: Current some day smoker tobacco type: cigarettes Tobacco: How many years used: 43 ROS ROS ED Constitutional Constitutional ED: Denies chills or fever(s) Eyes Eyes: Denies blurry vision or change in vision ENT ENT ED: Denies rhinorrhea or sore throat Cardiovascular Cardiovascular: Reports chest pain and palpitations Respiratory/Chest Respiratory/Chest: Reports cough and dyspnea Gastrointestinal Gastrointestinal: Reports nausea; Denies abdominal pain or vomiting Genitourinary Genitourinary ED: Reports dysuria; Denies hematuria Musculoskeletal Musculoskeletal: Reports back pain; Denies neck pain Integumentary Denies abscess or rash Neurologic Neurologic: Reports headache(s); Denies weakness Allergic/Immunologic Allergic/Immunologic ED: Denies mouth swelling or urticaria EXAM Physical Exam Const Vital Signs: 05/06/23 12:00 05/06/23 12:12 05/06/23 12:18 Temperature 97.5 F L Temperature Source Temporal Pulse Rate 76 Respiratory Rate 19 H Respiratory Effort Short of Breath Blood Pressure 196/88 H Blood Pressure Mean 124 Pulse Ox 96 97 Oxygen Delivery Method Room Air Room Air 05/06/23 13:16 05/06/23 14:00 05/06/23 15:43 Temperature Temperature Source Pulse Rate 66 72 Respiratory Rate 17 18 18 Respiratory Effort Blood Pressure 164/91 H 141/65 H Blood Pressure Mean 115 90 Pulse Ox 95 98 98 Oxygen Delivery Method Room Air Room Air 05/06/23 16:49 Temperature Temperature Source Pulse Rate 66 Respiratory Rate 20 H Respiratory Effort Blood Pressure 151/88 H Blood Pressure Mean 109 Pulse Ox 99 Oxygen Delivery Method Room Air Positive well nourished, well developed and obese General Appearance ED: well developed and NAD Nutritional Appearance: obese HEENT Reports moist mucous membranes Neck supple and no JVD Resp normal respiratory effort and clear to auscultation bilaterally Cardio regular rate and regular rhythm GI soft to palpation, non-tender and non-distended Extremity normal to inspection General Extremety ED: Negative for edema or tenderness General Extremity: Negative for edema Neuro oriented x3, CN's II-XII intact bilaterally and no sensory deficits noted Sensorium / Orientation: awake and alert Motor Exam: strength 5/5 throughout Psych mental status grossly normal Heart Score History: Moderately Suspicious ECG: Nonspecific Repolarization Age: >45 - <65 years Risk Factors: >/= 3 Risk Factors or History of CAD Troponin: </= Normal Limit Score: 5 MDM MDM MDM Narrative Medical decision making narrative: Differential diagnosis includes cardiac dysrhythmia, cardiac ischemia, pneumothorax, pneumonia, pulmonary embolism, GERD, anxiety, and musculoskeletal pain. EKG will be obtained to assess for cardiac dysrhythmia and cardiac ischemia. Chest x-ray will be obtained to assess for pneumonia and pneumothorax. CBC will be obtained to assess for leukocytosis and anemia. Basic metabolic profile will be obtained to assess for electrolyte abnormality and renal function. High-sensitivity troponin will be obtained to assess for cardiac ischemia. 2-hour repeat high-sensitivity troponin will be obtained to assess for ongoing cardiac ischemia. D-dimer will be obtained to assess for pulmonary embolism. Lab Data Attestation: I reviewed the patient's lab results. Lab results narrative: CBC was reviewed and was within normal limits. Basic metabolic profile was reviewed and was within normal limits. High-sensitivity troponin was reviewed and was normal at 8. 2-hour repeat high-sensitivity troponin was reviewed and was normal at 6. D-dimer was reviewed and was 0.54 which is normal for her age. Labs: Laboratory Results - last 24 hr 05/06/23 05/06/23 05/06/23 12:10 14:50 16:00 WBC 8.9 RBC 5.34 Hgb 16.6 H Hct 49.5 H MCV 92.7 MCH 31.1 MCHC 33.5 RDW Std Deviation 43.6 RDW Coeff of Aubrey 12.9 Plt Count 182 MPV 9.8 Immature Gran % (Auto) 0.400 Neut % (Auto) 60.8 Lymph % (Auto) 29.0 [place] % (Auto) 8.2 Eos % (Auto) 0.8 Baso % (Auto) 0.8 Absolute Neuts (auto) 5.4 Absolute Lymphs (auto) 2.59 Nucleated RBC % 0 D-Dimer Quant (PE/DVT) 0.54 H* Sodium 138 Potassium 4.5 Chloride 108 H Carbon Dioxide 25.0 Anion Gap 5 BUN 9 Creatinine 0.74 Estim Creat Clear Calc 71.90 Est GFR (MDRD) Af Amer 102 Est GFR (MDRD) Non-Af 84 BUN/Creatinine Ratio 12.2 Glucose 151 H Calcium 9.1 Troponin I High Sens 8 Cancelled 6 Radiography Chest X-Ray - ED: 1 View, Read by ED Physician, Read by Radiologist and No Acute Disease Diagnostic Testing: Clinical Impression(s) from Imaging Studies Chest X-Ray 05/06/23 12:25 IMPRESSION: No acute abnormality is seen. Focal linear metallic density projected over medial aspect of the left upper lobe most likely representing a foreign object. Electronically Signed: Mega Hewitt MD at 12:40 EDT , Portable 1 view chest x-ray was obtained. On my independent interpretation, lung pereira are clear. There is normal cardiac silhouette. Bony thorax is normal. There is no acute process noted. Radiologist also interpreted the x-ray and agrees. EKG Initial EKG: Attestation: I personally reviewed and interpreted this EKG as follows: Interpretation: Sinus Rhythm (64) and Non-Specific ST Changes Comments: EKG was obtained. On my independent interpretation, it showed a normal sinus rhythm with a rate of 64. SC interval, QRS interval, and QTc intervals were all normal. [place] was normal. There are nonspecific ST-T wave changes. Management Discussion w/another healthcare provider: Hospitalist Treatment and Re-Evaluation :: Patient was given aspirin and morphine initially. Patient is feeling better on reevaluation. Patient was advised of her findings. Patient has a HEART score of 5. Patient states it has been several years since she has had a stress test. Because of this, I recommended admission to the hospital for further evaluation of her chest pain. Patient is agreeable with this. Case will be discussed with the hospitalist for admission. Patient understood and was agreeable with the plan. All questions were answered. Discharge Plan Dx/Rx/DC Orders Clinical Impression: Tobacco use disorder, S/P CABG x 2, Chest pain Disposition Disposition: Acute Care Hospital [facility]
[2023-05-06] MEDS: Morphine 4 MG/ML Syringe IV (14:03)
[2023-05-06 14:19] LABS: Reflex Troponin-HS? (from REC) Y
[2023-05-06 14:27] LABS: D-Dimer Quantitative (DVT/PE) 0.54 FEU/ug/m (0.27-0.49)
--- NOTE | 2023-05-06 15:52 | NURSING ---
PER LAB, [facility], THEY WILL PRINT LABELS
[2023-05-06 16:23] LABS: Troponin-I HS 6 pg/mL (3.0-54.0)
--- NOTE | 2023-05-06 17:03 | PCM.HP.STD ---
HPI - General General Date of Admission: 05/06/23 Date of Service: 05/06/23 Chief Complaint: Chest pain HPI Narrative CAROL HORNER, is a 62 F who presented urgency department at [facility] with chest pain that has been ongoing on and off for the last 2 weeks. She states she notices that it is worse with exertion and movement of any kind. She does not report that it significantly improves with rest however. She states she has chronic shortness of breath and it may or may not worsen and some intermittent nausea as well. She still smokes. She reported that she had a cardiology appointment soon however had to be rescheduled. She has not called her painter ordnance with regards to her symptoms that she has been experiencing. She saw her primary care physician today who sent her to the emergency department. She states she currently is having some pain however it is nonradiating. She indicates the pain never radiates and seems to be in the central chest area. She states she has had symptoms on and off since her CABG and has required a stent placement since her CABG in the RCA. EF previously has been normal at 65%. She still smokes quite heavily. Heart score was 5. Vital signs on presentation: Temperature 97.5, heart rate 76, initial blood pressure was 196/88 with a repeat at 151/88, respiratory was 19 and oxygen saturations were 96% on room air. Her CBC shows chronic erythrocytosis. But is otherwise unremarkable. I suspect this is related to her chronic tobacco abuse. Her D-dimer was normal when corrected for age. Her chemistry panel was unremarkable. Serum glucose was 151. Troponin initially was 8 with a repeat of 6. EKG shows normal sinus rhythm with normal intervals and no ST-T wave changes concerning for acute ischemia. Given her heart score and history it was felt to be prudent to admit her for rule out stress test. [facility] Medical History Atherosclerotic heart disease of [place] coronary artery with unstable angina pectoris Chest pain Diabetes mellitus, type II Dyspnea on minimal exertion Encounter for screening for malignant neoplasm of lung in current smoker with 30 pack year history or greater Hyperlipidemia Hypertension Tobacco use disorder Tobacco use disorder, continuous Home Medications nitroglycerin 0.4 mg sublingual tablet 0.4 mg sublingual Q5M PRN CHEST PAIN 11/03/15 [History Last Taken 06/16/17 06:00] gabapentin 300 mg capsule 300 mg PO QHS NEUROPATHY 01/17/16 [History Last Taken 05/05/23] albuterol sulfate 90 mcg/actuation aerosol inhaler 2 puff inhalation Q4H PRN SHORTNESS OF BREATH/WHEEZING 06/17/17 [History Last Taken Unknown] ipratropium 0.5 mg-albuterol 3 mg (2.5 mg base)/3 mL nebulization soln 3 ml inhalation 4X/DAY PRN SHORTNESS OF BREATH/WHEEZING 02/28/19 [History Last Taken Unknown] metoprolol succinate 50 mg tablet,extended release 24 hr 50 mg PO DAILY BLOOD PRESSURE 02/28/19 [History Last Taken 05/05/23] aspirin 81 mg tablet,delayed release 162 mg PO DAILY HEART HEALTH 03/01/19 [History Last Taken 05/05/23] clopidogrel 75 mg tablet 75 mg PO DAILY BLOOD THINNER #90 tabs 05/19/19 [Rx Last Taken 05/05/23] lisinopril 20 mg tablet 20 mg PO DAILY BLOOD PRESSURE 10/03/19 [History Last Taken 05/05/23] metformin 500 mg tablet,extended release 24 hr 1,500 mg PO DAILY DIABETES 10/03/19 [History Last Taken 05/05/23] hydralazine 10 mg tablet 10 mg PO BID BLOOD PRESSURE 05/06/23 [History Last Taken 05/05/23] rosuvastatin 20 mg tablet 20 mg PO DAILY CHOLESTEROL 05/06/23 [History Last Taken 05/05/23] Allergy/AdvReac Type Severity Reaction Status Date / Time nickel Allergy Rash Verified 05/06/23 12:05 Penicillins [PCN] Allergy Hives Verified 05/06/23 12:05 nicotine [From Nicoderm CQ] AdvReac Severe TERRIBLE Verified 05/06/23 12:05 NIGHTMARES Family History Mother Kidney disease Congestive heart failure Renal failure Father CAD (coronary artery disease) Daughter Hypertension Surgical History History of arthroscopic knee surgery History of History of cholecystectomy History of colonoscopy History of esophagogastroduodenoscopy (EGD) History of left heart catheterization (10/05/19) History of rotator cuff surgery History of selective injection of anesthetic agent around lumbar nerve root History of tonsillectomy and adenoidectomy History of total right knee replacement History of tubal ligation S/P CABG x 2 (10/17/15) Stented coronary artery (03/03/19) Social History (Updated 05/06/23 @ 18:[address] Harmony Argueta, DO) Smoking Status: Current every day smoker alcohol intake: never substance use type: does not use Vital Signs Vital Signs Vital Signs: 05/06/23 12:00 05/06/23 12:12 05/06/23 12:18 Temperature 97.5 F L Temperature Source Temporal Pulse Rate 76 Respiratory Rate 19 H Respiratory Effort Short of Breath Blood Pressure 196/88 H Blood Pressure Mean 124 Pulse Ox 96 97 Oxygen Delivery Method Room Air Room Air 05/06/23 13:16 05/06/23 14:00 05/06/23 15:43 Temperature Temperature Source Pulse Rate 66 72 Respiratory Rate 17 18 18 Respiratory Effort Blood Pressure 164/91 H 141/65 H Blood Pressure Mean 115 90 Pulse Ox 95 98 98 Oxygen Delivery Method Room Air Room Air 05/06/23 16:49 Temperature Temperature Source Pulse Rate 66 Respiratory Rate 20 H Respiratory Effort Blood Pressure 151/88 H Blood Pressure Mean 109 Pulse Ox 99 Oxygen Delivery Method Room Air Weight Weight: 133.4 kg Body Mass Index (BMI) 47.5 Physical Exam Const alert, oriented x3, no apparent distress and well nourished; Negative for average body habitus or healthy appearing Constitutional Narrative: Morbidly obese, middle-aged, white female, appears older than stated age, sitting up in bed watching television, appears comfortable but is still complaining of chest pain centrally General Appearance: cooperative HEENT normocephalic, head/scalp atraumatic, hearing grossly normal bilaterally and moist oral mucous membranes HEENT Narrative: Mallampati 3-4, no thrush Resp normal respiratory effort, no retractions, no use of accessory muscles and No clear to auscultation bilaterally Resp Narrative: Diffusely diminished with few scattered end expiratory wheeze Auscultation: wheezes; Negative for rales or rhonchi Cardio regular rate, regular rhythm, S1 normal heart sound, S2 normal heart sound, no murmurs, no rub, no gallops and no clicks Cardio Narrative: Patient does have reproducible pain with palpation of the anterior chest wall that is similar to the pain she is experiencing but not the same GI normal to inspection, nondistended, normoactive bowel sounds, soft to palpation and non-tender Extremity no clubbing, cyanosis or edema Extremity Narrative: Pedal pulses are 2+ Neuro oriented x3, CN's II-XII intact bilaterally, moves all extremities and no focal motor deficits Speech: speech normal Psych affect normal Psych Narrative: Very pleasant, eye contact is good, appears comfortable Results Lab / Micro Data 05/06/23 12:10 05/06/23 12:10 Labs: Laboratory Results - last 24 hr 05/06/23 12:10: WBC 8.9, RBC 5.34, Hgb 16.6 H, Hct 49.5 H, MCV 92.7, MCH 31.1, MCHC 33.5, RDW Std Deviation 43.6, RDW Coeff of Aubrey 12.9, Plt Count 182, MPV 9.8, Immature Gran % (Auto) 0.400, Neut % (Auto) 60.8, Lymph % (Auto) 29.0, [place] % (Auto) 8.2, Eos % (Auto) 0.8, Baso % (Auto) 0.8, Absolute Neuts (auto) 5.4, Absolute Lymphs (auto) 2.59, Nucleated RBC % 0, D-Dimer Quant (PE/DVT) 0.54 H*, Sodium 138, Potassium 4.5, Chloride 108 H, Carbon Dioxide 25.0, Anion Gap 5, BUN 9, Creatinine 0.74, Estim Creat Clear Calc 71.90, Est GFR (MDRD) Af Amer 102, Est GFR (MDRD) Non-Af 84, BUN/Creatinine Ratio 12.2, Glucose 151 H, Calcium 9.1, Troponin I High Sens 8 05/06/23 14:50: Troponin I High Sens Cancelled 05/06/23 16:00: Troponin I High Sens 6 Radiology Impression Chest X-Ray 05/06/23 12:25 IMPRESSION: No acute abnormality is seen. Focal linear metallic density projected over medial aspect of the left upper lobe most likely representing a foreign object. Electronically Signed: Mega Hewitt MD at 12:40 EDT , Assessment & Plan Assessment/Plan (1) Chest pain: (2) Erythrocytosis: PLAN: Plan Chest pain -Patient with significant coronary heart history and heart score of 5 -Chest pain has been ongoing for 2 weeks and troponin is unremarkable -EKG shows no acute changes consistent with acute ischemia -Check lipids -Check hemoglobin A1c -Continue aspirin -Continue home Plavix -Continue home hydralazine -Continue home statin -Continue metoprolol -Stress test in a.m. -As needed nitro Erythrocytosis -Likely related to her chronic tobacco abuse -We will monitor CAD/HTN/HPL -Patient with previous CABG -And last cardiac catheterization in 2019 -Patient has had PCI x1 since her CABG was performed -Continue dual antiplatelet therapy -Continue home hydralazine -Continue home statin -Continue home metoprolol -Check lipid panel DM-2 -Hold home metformin -Check A1c -SSI -Accu-Cheks -Cardiac/carb controlled diet Suspected COPD -Patient with about a 70-[id number]-ogod history -As needed DuoNebs -Recommend outpatient pulmonary medicine follow-up Diabetic neuropathy -Continue home gabapentin Morbid obesity -Suspect patient likely has sleep apnea as she has morbid obesity along with a short thick neck -Would recommend outpatient polysomnography -BMI is 47.5 -Recommend weight loss -Complicates treatment, prognosis, outcomes Tobacco abuse -Recommend cessation -Nicotine patch available DVT prophylaxis -Subcu Lovenox twice daily 40 mg CODE STATUS -Full code Charges/Coding Visit Charges Inpatient E&M: 01615 Init Hosp L2
--- NOTE | 2023-05-06 17:34 | NURSING ---
105 OBS ILAN CHEST PAIN, CAD
[2023-05-06 19:48] LABS: Troponin-I HS 6 pg/mL (3.0-54.0)
[2023-05-06] MEDS: Atorvastatin Calcium 40 MG Tablet PO (21:46)
[2023-05-06] MEDS: hydrALAZINE 10 MG Tablet PO (21:46)
[2023-05-06] MEDS: Gabapentin 300 MG Capsule PO (21:46)
[2023-05-06] MEDS: Enoxaparin 40 MG/0.4 ML Syringe SC (21:47)
[2023-05-06 22:10] LABS: Bedside Glucose 254 mg/dL (74-106)
[2023-05-07] VITALS (7 sets, daily range): BP systolic 104–128; BP diastolic 57–83; PULSE 69–77; RESP 16–18; TEMP 36.4–36.7; O2SAT 93–96; BMI 47.0
--- NOTE | 2023-05-07 05:55 | EKG12_ITS ---
Test Reason : CP Blood Pressure : / mmHG Vent. Rate : 082 BPM Atrial Rate : 082 BPM P-R Int : 166 ms QRS Dur : 088 ms QT Int : 390 ms P-R-T Axes : 078 006 061 degrees QTc Int : 455 ms Normal sinus rhythm Normal ECG Confirmed by FEREN KERNS, LIANA ([id number]), video editor ROSALIND MCCANN ([id number]) on 05/12/2023 10:08:10 AM Referred By: Confirmed By:LIANA SCHWARTZ MD
[2023-05-07] MEDS: Clopidogrel Bisulfate 75 MG Tablet PO (06:32)
[2023-05-07] MEDS: Lisinopril 20 MG Tablet PO (06:32)
[2023-05-07] MEDS: Aspirin E.C. 81 MG Tablet 162 MG PO (06:32)
[2023-05-07] MEDS: hydrALAZINE 10 MG Tablet PO (06:32)
[2023-05-07 06:52] LABS: Bedside Glucose 167 mg/dL (74-106)
[2023-05-07 08:02] LABS: Absolute Lymphocyte Count 2.35 X10^3/uL (0.83-4.51); Absolute Neutrophil Count 3.8 X10^3/uL (2.0-7.7); Basophil# 0.04 X10^3/uL; Basophil% 0.6 % (0-1); Eosinophil# 0.15 X10^3/uL; Eosinophils% 2.2 % (0-5); Hematocrit 48.7 % (37-47); Lymphocyte # 2.35 X10^3/ul (0.83-4.51); Lymphocyte % 33.7 % (19-41); Mean Corp Hgb Conc 32.9 g/dL (32-36); Mean Corpuscular Volume 94.4 fL (81-99); Mean Platelet Vol. 10.2 fl (6.2-12.0); Monocyte# 0.65 X10^3/uL; Monocyte% 9.3 % (0-10); NRBC Flagged by Analyzer 0 % (0-5); Neutrophil # 3.77 X10^3/uL (2.7-7.7); Neutrophil % 54.1 % (47-70); Platelet Count 180 K/mm3 (150-450); RBC Distribution Width CV 13.2 % (11.6-14.6); RBC Distribution Width SD 45.9 fl (35.1-43.9); Red Blood Count 5.16 M/mm3 (4.2-5.4)
--- NOTE | 2023-05-07 08:11 | ECHOCS_ITS ---
Reason For Study: CHEST PAIN Procedure This was a 2D Doppler, Color Flow transthoracic echocardiogram. The study was technically difficult. Contrast injection was performed. Exam performed in department. Left Ventricle Normal LV size. The left ventricular ejection fraction is 65 %. Diastolic function is indeterminate. Right Ventricle Normal right ventricle. Atria The left atrium is moderately enlarged. Normal right atrium. Mitral Valve Trivial mitral valve insufficiency. Tricuspid Valve Trivial tricuspid valve insufficiency. Unable to estimate RV systolic pressure due to insufficient tricuspid regurgitant envelope. Aortic Valve Trisinus/trileaflet aortic valve. Trivial aortic valve insufficiency. Pulmonic Valve The pulmonic valve is not well visualized. Great Vessels The aortic root is not well visualized. Pericardium/Pleural No pericardial effusion. Medication Diluted definity 3ml given slow IV push to enhance endocardial definition. MMode/2D Measurements & Calculations LAV(MOD-bp): 46.5 ml LA dimension(2D): 4.2 cm LA A4 area: 17.2 cm2 LAV(MOD-bp) Indexed: 19.8 ml/m2 LAV(MOD-sp2): 48.5 ml LAV(MOD-sp4): 43.2 ml TAPSE: 2.1 cm RA A4 area: 15.9 cm2 Time Measurements MV dec time: 0.29 sec Doppler Measurements & Calculations MV E max talat: 61.9 cm/sec Lat Peak E' Talat: 11.4 cm/sec Med Peak E' Talat: 7.6 cm/sec MV A max talat: 71.1 cm/sec E/E' lat: 5.4 E/E' med: 8.1 MV E/A: 0.87 MV V2 max: 91.9 cm/sec Ao V2 max: 144.5 cm/sec MV max P.4 mmHg MV dec slope: 216.8 cm/sec2 Ao max P.4 mmHg MV V2 mean: 48.2 cm/sec Ao V2 mean: 92.4 cm/sec MV mean P.1 mmHg Ao mean P.0 mmHg MV V2 VTI: 31.6 cm Ao V2 VTI: 32.9 cm AV (velocity ratio): 0.59 LV V1 max: 110.7 cm/sec PA V2 max: 102.8 cm/sec LV V1 max P.9 mmHg PA V2 mean: 72.2 cm/sec LV V1 mean P.6 mmHg LV V1 mean: 74.1 cm/sec LV V1 VTI: 19.6 cm ECHO/Echo Complete W/ Contrast Interpretation Summary The left ventricular ejection fraction is 65 %. Diastolic function is indeterminate. The left atrium is moderately enlarged. The study was technically difficult. Ordering Physician: Sara Marte Referring Physician: MOON OLVERA Performed By: Lesly Grullon RCS
[2023-05-07 08:30] LABS: Anion Gap 5 (5-15); BUN 10 mg/dL (7-18); BUN/Creat Ratio 15.7 RATIO (10-20); Calcium,Total 8.7 mg/dL (8.5-10.1); Chloride 106 mmol/L (98-107); Cholesterol 153 mg/dL (200); Creatinine, Serum 0.64 mg/dL (0.55-1.02); EST Glomerular Filtration Rate 100 mL/min (>60); Est Glom Filt Rate - Afr Amer 120 mL/min (>60); Estimated Creatinine Clearance 83.13 ml/min; Glucose 157 mg/dL (74-106); High Density Lipoprotein 44 mg/dL; Magnesium 2.3 mg/dL (1.6-2.6); Phosphorus 3.5 mg/dL (2.5-4.9); Potassium 3.9 mmol/L (3.5-5.1); Sodium Level 137 mmol/L (136-145); Triglycerides 163 mg/dL; Very Low Density Lipoprotein 33 mg/dL (5-40)
[2023-05-07] MEDS: Influenza Virus Vac Quad 23-24 60 MCG/0.5 ML SYRINGE IM (11:28)
--- NOTE | 2023-05-07 11:28 | STRESSREP ---
Stress Test Report Date: 05/07/2023 Procedure: Pharmacologic stress nuclear imaging study Indications: Chest pain Consent: Per the patient Procedure: The patient underwent pharmacologic (Regadenoson 0.4mg ) evaluation with a peak heart rate of 112 beats per minute (71%predicted maximal heart rate) and a peak blood pressure of 100/78 mmHg. The baseline ECG demonstrated sinus rhythm. The peak pharmacologic ECG demonstrated no ischemic changes. There were no cardiac dysrhythmias pretest, during pharmacologic infusion, or recovery. There was no complaint of chest discomfort during pharmacologic infusion or recovery. The patient was injected with 15.0 millicuries of technetium 99m Cardiolite and subsequently rest SPECT Cardiolite nuclear imaging was obtained in the horizontal long, vertical long, and short axis views. The patient underwent pharmacologic (Regadenoson) evaluation. The patient was injected with 45.0 millicuries of technetium 99m Cardiolite and subsequently stress SPECT Cardiolite nuclear imaging was obtained in the horizontal long, vertical long, and short axis views. A gated Cardiolite study at peak stress was obtained. The examination was stopped secondary to completion of protocol. Rest and stress SPECT Cardiolite nuclear imaging status post realignment, normalization, and attenuation correction demonstrate no fixed or reversible perfusion defects. There is end systolic thickening and brightening. The gated Cardiolite study demonstrates myocardial thickening and inward wall motion. The reported LVEF is 76%. Impression: 1. Pharmacologic (Regadenoson) evaluation 2. Peak pharmacologic ECG with no ischemic changes. 3. There were no cardiac dysrhythmias pretest, during pharmacologic infusion, or recovery. 5. Rest and stress SPECT Cardiolite nuclear imaging demonstrate relative uniform tracer uptake and myocardial perfusion appearing within normal limits. 6. The gated Cardiolite study reports an LVEF of 76%. This note was generated with [employer] software. It may contain incorrect words, spelling, and punctuation that were not noted in checking the note before signing.
[2023-05-07] MEDS: Metoprolol(XL)Succ 50 MG Tablet PO (11:32)
[2023-05-07] MEDS: Morphine 4 MG/ML Syringe IV (11:45)
[2023-05-07] MEDS: Insulin Lispro 100 UNIT/ML INSULN.PEN SC ×2 (11:45→16:40)
--- NOTE | 2023-05-07 14:15 | CHAPLAIN ---
Type of Pastoral Visit _x__ Initial Visit ___ Follow-up Visit ___ On-call Visit ___ General Patient Visit ___ Spiritual Assessment ___ Family Conference ___ Bereavement ___ Rapid Response ___ Code Blue ___ Other (describe below) Pastoral Care Referral From _x__ Patient ___ Family ___ Nurse ___ Physician ___ Hospice Music Therapy ___ Ceramic Artist ___ Other (describe below) Sacrament/Intervention _x__ Active listening ___ Anointing ___ Synagogue ___ Bereavement ___ Communion ___ Lucina exploration ___ ___ Life review _x__ Prayer ___ Reconciliation ___ Sacrament of Sick _x__ Supportive presence ___ Wedding ___ Other (describe below) Pastoral Comments patient states her heart issues of the past and admits that this event has made her scared; listened to her process her experience and her concerns about a difficult past in finding out what was really wrong; pt asks for a prayer but indicates that she is not involved in any hindu expression or lucina community; pt has a for support
[2023-05-07 14:35] LABS: Bedside Glucose 182 mg/dL (74-106)
--- NOTE | 2023-05-07 15:55 | DCINST_ITS ---
Discharge Instructions Diet Discharge Diet: - (DASH diet) Activity Discharge Activity: Return to Normal Activity Follow Up Care Test Results: Test results from this visit will be discussed in further detail at your follow- up appointment, if applicable. Discharge Plan Admission Admit Date/Time: 05/06/23 17:05 Primary Reason for Your Visit: Chest pain Attending Provider: Sara Marte Primary Care Provider: Mac Siddiqui Consulting Providers: Harmony Argueta Instructions Patient Instructions: ED Chest Pain, Noncardiac Additional Instructions / Restrictions: DISCHARGE INSTRUCTIONS PLEASE READ *Please take this with you to your next doctors appointment* -It is strongly advised to have an outpatient sleep study coordinated, coming through her primary care physician's office -Please follow-up with cardiology upon discharge. Please call their office to schedule hospital follow-up appointment upon discharge. You indicated that you may want to switch cardiologists and follow with our office, contact information below if he would choose to do so. -Your stress test was within normal limits, you will be discharged on a medication for reflux as we discussed, pantoprazole. -Continue other home meds -Please call your primary care provider's office upon discharge to schedule a hospital follow up within 1 week. -For any concerning signs or symptoms please call 911 or proceed to the nearest emergency department Discharge Orders/Prescriptions Prescriptions: New pantoprazole 40 mg Tablet,Delayed Release (Dr/Ec) 40 mg PO DAILY 30 Days Qty: 30 0RF Continued metoprolol succinate 50 mg tablet extended release 24 hr 50 mg PO DAILY ipratropium-albuterol 0.5 mg-3 mg(2.5 mg base)/3 mL solution for nebulization 3 ml INHALATION 4X/DAY PRN (Reason: SHORTNESS OF BREATH/WHEEZING ) Patient Comments: NOT TAKING OFTEN BECAUSE ITS HARD TO CLEAN aspirin 81 mg tablet,delayed release (DR/EC) 162 mg PO DAILY nitroglycerin 0.4 MG tablet 0.4 mg sublingual Q5M PRN (Reason: CHEST PAIN ) gabapentin 300 MG capsule 300 mg PO QHS albuterol sulfate 1 INHALER inhaler 2 puff inhalation Q4H PRN (Reason: SHORTNESS OF BREATH/WHEEZING) Patient Comments: NOT TAKING OFTEN THEY SHOULD lisinopril 20 MG tablet 20 mg PO DAILY metformin 500 MG tablet extended release 24 hr 1,500 mg PO DAILY hydralazine 10 MG tablet 10 mg PO BID rosuvastatin 20 mg tablet 20 mg PO DAILY clopidogrel 75 mg tablet 75 mg PO DAILY Qty: 90 3RF Referrals / Follow Up: Franc العراقي MD [Med Staff - Active Staff] - Mac Siddiqui MD [Primary Care Provider] - Within 1 Week Disposition Disposition (needs filled in before D/C Order can be placed): Home, Self Care
--- NOTE | 2023-05-07 15:58 | PCM.DC.SUM ---
Providers Date of Admission: 05/06/23 Date of Discharge: 05/07/23 Primary Care Physician: Dr. Mac Olvera MD Reason For Visit: CP Diagnosis Discharge Diagnosis (1) Chest pain: Status: Acute Code(s): R07.9 - Chest pain, unspecified (2) Erythrocytosis: Status: Acute Code(s): D75.1 - Secondary polycythemia Plan #Atypical chest pain- normal workup #Hx cad w/ hx cabg and PCI #Erythrocytosis #DMII Medications at Discharge Home Medications nitroglycerin 0.4 mg sublingual tablet 0.4 mg sublingual Q5M PRN CHEST PAIN 05/15/15 gabapentin 300 mg capsule 300 mg PO QHS NEUROPATHY 01/17/16 albuterol sulfate 90 mcg/actuation aerosol inhaler 2 puff inhalation Q4H PRN SHORTNESS OF BREATH/WHEEZING 06/17/17 ipratropium 0.5 mg-albuterol 3 mg (2.5 mg base)/3 mL nebulization soln 3 ml inhalation 4X/DAY PRN SHORTNESS OF BREATH/WHEEZING 02/28/19 metoprolol succinate 50 mg tablet,extended release 24 hr 50 mg PO DAILY BLOOD PRESSURE 02/28/19 aspirin 81 mg tablet,delayed release 162 mg PO DAILY HEART HEALTH 03/01/19 clopidogrel 75 mg tablet 75 mg PO DAILY BLOOD THINNER #90 tabs 05/19/19 lisinopril 20 mg tablet 20 mg PO DAILY BLOOD PRESSURE 10/03/19 metformin 500 mg tablet,extended release 24 hr 1,500 mg PO DAILY DIABETES 10/03/19 hydralazine 10 mg tablet 10 mg PO BID BLOOD PRESSURE 05/06/23 rosuvastatin 20 mg tablet 20 mg PO DAILY CHOLESTEROL 05/06/23 pantoprazole 40 mg tablet,delayed release 40 mg PO DAILY 30 days #30 tabs 05/07/23 Hospital Course Summary of Care Provided Minutes Spent on Discharge: 31 Hospital Course: 62-year-old female history of tobacco use, hypertension, coronary artery disease with stenting and CABG, type 2 diabetes mellitus who presented to [facility] 05/06/2023 for worsening chest pain. Troponins negative and EKG with no new ischemic changes however given her high heart score she was admitted for stress test. Stress test was within normal limits. Discussed with patient after stress test results and she endorsed that she has the chest pressure constantly and has nothing to do with exertion or rest or movement but sometimes will be worse when she lays down at night and has no other associated symptoms whatsoever. Given negative work-up do not think she needs hospitalized for further acute cardiac work-up or intervention, may have component of GERD given the worsening at bedtime when she lays down, discussed starting PPI and patient agreeable. Discussed following up with her roving carrier and PCP when she leaves and patient verbalized understanding. Discussed need for sleep study and patient reports she would not use her CPAP even if she qualified for 1, discussed that she should discuss this further with her primary physician as they are often other options that are more tolerable and hurts to masks etc. Discharge instructions follow: -It is strongly advised to have an outpatient sleep study coordinated, coming through her primary care physician's office -Please follow-up with cardiology upon discharge. Please call their office to schedule hospital follow-up appointment upon discharge. You indicated that you may want to switch cardiologists and follow with our office, contact information below if he would choose to do so. -Your stress test was within normal limits, you will be discharged on a medication for reflux as we discussed, pantoprazole. -Continue other home meds -Please call your primary care provider's office upon discharge to schedule a hospital follow up within 1 week. -For any concerning signs or symptoms please call 911 or proceed to the nearest emergency department Physical Exam Narrative General: Alert, oriented, no apparent distress HEENT: Atraumatic, normocephalic Eyes: Anicteric, normal conjunctiva, extraocular movements grossly intact Neck: Supple Respiratory: Clear to auscultation bilaterally, normal respiratory effort Cardiovascular: Regular rate and rhythm GI: Soft, nontender, nondistended Extremities: No edema Musculoskeletal: Moving all extremities Neuro: No overt focal neurological deficits Skin: No rashes appreciated Psych: Cooperative Weight / BMI Weight Weight: 132 kg Body Mass Index (BMI) 47.0 ABG / Lab / Microbiology Data 05/07/23 06:51 05/07/23 06:51 Laboratory: Laboratory Results - last 24 hr 05/06/23 16:00: Troponin I High Sens 6 05/06/23 19:15: Troponin I High Sens 6 05/06/23 21:50: POC Glucose 254 H 05/07/23 06:35: POC Glucose 167 H 05/07/23 06:51: WBC 7.0, RBC 5.16, Hgb 16.0 H, Hct 48.7 H, MCV 94.4, MCH 31.0, MCHC 32.9, RDW Std Deviation 45.9 H, RDW Coeff of Aubrey 13.2, Plt Count 180, MPV 10.2, Immature Gran % (Auto) 0.100, Neut % (Auto) 54.1, Lymph % (Auto) 33.7, Anson % (Auto) 9.3, Eos % (Auto) 2.2, Baso % (Auto) 0.6, Absolute Neuts (auto) 3.8, Absolute Lymphs (auto) 2.35, Nucleated RBC % 0, Sodium 137, Potassium 3.9, Chloride 106, Carbon Dioxide 26.0, Anion Gap 5, BUN 10, Creatinine 0.64, Estim Creat Clear Calc 83.13, Est GFR (MDRD) Af Amer 120, Est GFR (MDRD) Non-Af 100, BUN/Creatinine Ratio 15.7, Glucose 157 H, Calcium 8.7, Phosphorus 3.5, Magnesium 2.3, Triglycerides 163, Cholesterol 153, LDL Cholesterol 76, VLDL Cholesterol 33, HDL Cholesterol 44 05/07/23 11:20: POC Glucose 182 H Radiography Diagnostic Testing: Radiology Impression Echocardiogram 05/07/23 08:11 Interpretation Summary The left ventricular ejection fraction is 65 %. Diastolic function is indeterminate. The left atrium is moderately enlarged. The study was technically difficult. Ordering Physician: Sara Marte Referring Physician: MAC OLVERA Performed By: Lesly Grullon RCS D/C Instructions Discharge Diet: - (DASH diet) Meaningful Use Info Meaningful Use Diagnoses (Choose all that apply): None applicable Discharge Plan Admission Admit Date/Time: 05/06/23 17:05 Primary Reason for Your Visit: Chest pain Attending Provider: Sara Marte Primary Care Provider: Mac Olvera Consulting Providers: Harmony Argueta Instructions Patient Instructions: ED Chest Pain, Noncardiac Additional Instructions / Restrictions: DISCHARGE INSTRUCTIONS PLEASE READ *Please take this with you to your next doctors appointment* -It is strongly advised to have an outpatient sleep study coordinated, coming through her primary care physician's office -Please follow-up with cardiology upon discharge. Please call their office to schedule hospital follow-up appointment upon discharge. You indicated that you may want to switch cardiologists and follow with our office, contact information below if he would choose to do so. -Your stress test was within normal limits, you will be discharged on a medication for reflux as we discussed, pantoprazole. -Continue other home meds -Please call your primary care provider's office upon discharge to schedule a hospital follow up within 1 week. -For any concerning signs or symptoms please call 911 or proceed to the nearest emergency department Discharge Orders/Prescriptions Prescriptions: New pantoprazole 40 mg Tablet,Delayed Release (Dr/Ec) 40 mg PO DAILY 30 Days Qty: 30 0RF Continued metoprolol succinate 50 mg tablet extended release 24 hr 50 mg PO DAILY ipratropium-albuterol 0.5 mg-3 mg(2.5 mg base)/3 mL solution for nebulization 3 ml INHALATION 4X/DAY PRN (Reason: SHORTNESS OF BREATH/WHEEZING ) Patient Comments: NOT TAKING OFTEN BECAUSE ITS HARD TO CLEAN aspirin 81 mg tablet,delayed release (DR/EC) 162 mg PO DAILY nitroglycerin 0.4 MG tablet 0.4 mg sublingual Q5M PRN (Reason: CHEST PAIN ) gabapentin 300 MG capsule 300 mg PO QHS albuterol sulfate 1 INHALER inhaler 2 puff inhalation Q4H PRN (Reason: SHORTNESS OF BREATH/WHEEZING) Patient Comments: NOT TAKING OFTEN THEY SHOULD lisinopril 20 MG tablet 20 mg PO DAILY metformin 500 MG tablet extended release 24 hr 1,500 mg PO DAILY hydralazine 10 MG tablet 10 mg PO BID rosuvastatin 20 mg tablet 20 mg PO DAILY clopidogrel 75 mg tablet 75 mg PO DAILY Qty: 90 3RF Referrals / Follow Up: Franc العراقي MD [Med Staff - Active Staff] - Mac Olvera MD [Primary Care Provider] - Within 1 Week Disposition Disposition (needs filled in before D/C Order can be placed): Home, Self Care Charges/Coding Visit Charges Inpatient E&M: 20426 Disch Hosp >30min
[2023-05-07 17:02] LABS: Bedside Glucose 193 mg/dL (74-106)
== END 2023-05-07 15:58 | disposition home or self-care (01) ==
LOC: ED 16:47 → PCU 17:25
PROVIDERS: Admitting Provider Internal Medicine; Emergency Provider Emergency Medicine; PCP Family Medicine; Visit Provider Internal Medicine
DX: R07.89 Other chest pain (principal); E11.40 Type 2 diabetes mellitus with diabetic neuropathy, unspecified; E66.01 Morbid (severe) obesity due to excess calories; Z68.42 Body mass index [BMI] 45.0-49.9, adult; I25.10 Atherosclerotic heart disease of native coronary artery without angina pectoris; D75.1 Secondary polycythemia; R00.2 Palpitations; I10 Essential (primary) hypertension; F17.210 Nicotine dependence, cigarettes, uncomplicated; Z79.02 Long term (current) use of antithrombotics/antiplatelets; Z79.82 Long term (current) use of aspirin; Z95.1 Presence of aortocoronary bypass graft; E78.5 Hyperlipidemia, unspecified; Z79.84 Long term (current) use of oral hypoglycemic drugs; Z23 Encounter for immunization; Z79.899 Other long term (current) drug therapy
CPT/HCPCS: 90686; 36415; 71045; 78452; 80048; 80061; 82962; 83735; 84100; 84484; 85025; 85379; 93005; 93017; 93306; 94668; 96372; 96374; 96376; 99221; 99285; A9500; Q9957; A4216; C8929; G0378; J2785

== ENCOUNTER 2024-12-21 19:13 | Emergency (ER) | payer MEDICARE, SELFPAY ==
[2019-03-04 14:06] VITALS: BMI 46.6
[2024-12-21 19:15] VITALS: BP 106/69; PULSE 69; RESP 18; TEMP 36.9; O2SAT 95
--- NOTE | 2024-12-21 20:11 | EX.ED.DYSGE1 ---
HPI History of Present Illness Chief Complaint: Complaint Informant: patient and family Onset/Context/Timing Onset: Weeks (3) Context: Gradual Onset Timing: Continuous Quality: Burning Location: Suprapubic area and right lower abdomen Worsened by: Urination Relieved by: Nothing Narrative Narrative: Patient presents with weakness and urinary tract infection symptoms. Patient states this has been getting worse over the past 3 weeks. Patient states it is gradually getting worse. Patient states she has some burning sensation in her bladder area. Patient states it is worse with urinating. Patient states it radiates to the right. Patient admits to fever of 102. Patient admits to some nausea and vomiting. Patient also admits to some shortness of breath. [facility] Medical History Hernia Tobacco use disorder, continuous Encounter for screening for malignant neoplasm of lung in current smoker with 30 pack year history or greater Tobacco use disorder Diabetes mellitus, type II Dyspnea on minimal exertion Atherosclerotic heart disease of [place] coronary artery with unstable angina pectoris Hyperlipidemia Hypertension Chest pain Home Medications ?Medication ?Instructions ?Recorded ?Last Taken ?Type nitroglycerin 0.4 mg sublingual 0.4 mg sublingual Q5M PRN CHEST 05/15/15 06/16/17 06:00 History tablet PAIN gabapentin 300 mg capsule 300 mg PO QHS NEUROPATHY 01/17/16 05/05/23 History albuterol sulfate 90 mcg/actuation 2 puff inhalation Q4H PRN 06/17/17 Unknown History aerosol inhaler SHORTNESS OF BREATH/WHEEZING ipratropium 0.5 mg-albuterol 3 mg 3 ml inhalation 4X/DAY PRN 02/28/19 Unknown History (2.5 mg base)/3 mL nebulization SHORTNESS OF BREATH/WHEEZING soln metoprolol succinate 50 mg 50 mg PO DAILY BLOOD PRESSURE 02/28/19 05/05/23 History tablet,extended release 24 hr aspirin 81 mg tablet,delayed 162 mg PO DAILY HEART HEALTH 03/01/19 05/05/23 History release clopidogrel 75 mg tablet 75 mg PO DAILY BLOOD THINNER #90 05/19/19 05/05/23 Rx tabs lisinopril 20 mg tablet 20 mg PO DAILY BLOOD PRESSURE 10/03/19 05/05/23 History metformin 500 mg tablet,extended 1,500 mg PO DAILY DIABETES 10/03/19 05/05/23 History release 24 hr hydralazine 10 mg tablet 10 mg PO BID BLOOD PRESSURE 05/06/23 05/05/23 History rosuvastatin 20 mg tablet 20 mg PO DAILY CHOLESTEROL 05/06/23 05/05/23 History pantoprazole 40 mg tablet,delayed 40 mg PO DAILY 30 days #30 tabs 05/07/23 Unknown Rx release hydrocodone-acetaminophen 5-325mg 1 tab PO Q6H PRN PRN Pain 3 days 12/22/24 Unknown Rx 5mg-325mg #10 TABLETS levofloxacin 750 mg tablet 750 mg PO DAILY #5 tabs 12/22/24 Unknown Rx ondansetron 4 mg disintegrating 4 mg PO Q8H PRN PRN Nausea #10 tabs 12/22/24 Unknown Rx tablet Allergy/AdvReac Type Severity Reaction Status Date / Time nickel Allergy Rash Verified 05/06/23 12:05 Penicillins (PCN) Allergy Hives Verified 05/06/23 12:05 nicotine (From Nicoderm CQ) AdvReac Severe TERRIBLE Verified 05/06/23 12:05 NIGHTMARES Family History Mother Kidney disease Congestive heart failure Renal failure Father CAD (coronary artery disease) Daughter Hypertension Surgical History History of left heart catheterization (10/05/19) Stented coronary artery (03/03/19) History of tubal ligation History of total right knee replacement History of History of tonsillectomy and adenoidectomy History of rotator cuff surgery History of selective injection of anesthetic agent around lumbar nerve root History of arthroscopic knee surgery History of esophagogastroduodenoscopy (EGD) History of colonoscopy History of cholecystectomy S/P CABG x 2 (10/17/15) Social History Smoking Status: Current every day smoker tobacco type: cigarettes alcohol intake: never substance use type: does not use ROS ROS ED Constitutional Constitutional ED: Reports fever(s); Denies chills Eyes Eyes: Denies blurry vision or change in vision ENT ENT ED: Denies rhinorrhea or sore throat Cardiovascular Cardiovascular: Denies chest pain or palpitations Respiratory/Chest Respiratory/Chest: Reports dyspnea; Denies cough Gastrointestinal Gastrointestinal: Reports nausea and vomiting Genitourinary Genitourinary ED: Reports dysuria; Denies hematuria Musculoskeletal Musculoskeletal: Reports back pain and neck pain Integumentary Denies abscess or rash Neurologic Neurologic: Reports headache(s); Denies weakness Allergic/Immunologic Allergic/Immunologic ED: Denies mouth swelling or urticaria EXAM Physical Exam Const Vital Signs: 12/21/24 19:15 12/21/24 21:23 12/21/24 21:29 Temperature 98.5 F 98.5 F Temperature Source Oral Oral Pulse Rate 69 74 Respiratory Rate 18 14 Respiratory Effort Normal Respiratory Pattern Normal Blood Pressure 106/69 101/54 L Blood Pressure Mean 81 69 Pulse Ox 95 95 Oxygen Delivery Method Room Air 12/21/24 22:00 12/21/24 23:00 Temperature 98.7 F 98.7 F Temperature Source Oral Oral Pulse Rate 74 77 Respiratory Rate 22 H 15 Respiratory Effort Respiratory Pattern Blood Pressure 113/47 L 91/77 Blood Pressure Mean 69 81 Pulse Ox 97 92 Oxygen Delivery Method Room Air Room Air Positive well nourished and well developed General Appearance ED: well developed and NAD HEENT Reports moist mucous membranes Neck supple and no JVD Resp normal respiratory effort and clear to auscultation bilaterally Cardio regular rate and regular rhythm GI non-distended Palpation: soft and tender RLQ and suprapubic; Negative for guarding or rebound tenderness present Extremity normal to inspection General Extremety ED: Negative for edema or tenderness General Extremity: Negative for edema Neuro oriented x3, CN's II-XII intact bilaterally and no sensory deficits noted Sensorium / Orientation: alert Motor Exam: strength 5/5 throughout Psych mental status grossly normal MDM MDM MDM Narrative Medical decision making narrative: Differential diagnosis includes urinary tract infection, ureteral calculus, appendicitis, pyelonephritis, sepsis, bowel obstruction, perforation, and dehydration. CBC will be obtained to assess for leukocytosis and anemia. Comprehensive metabolic profile will be obtained to assess for hepatic function, renal function, and electrolyte abnormality. Urinalysis will be obtained to assess for urinary tract infection and hematuria. CT scan of the abdomen and pelvis will be obtained to assess for appendicitis, ureteral calculus, bowel obstruction, and perforation. Serum lactate will be obtained to assess for sepsis. Urine culture will be obtained to assess for urinary tract infection. Blood cultures will be obtained to assess for sepsis. History & Record Review Additional record(s) reviewed:: Prior inpatient record, Prior ED visit and Prior labs Lab Data Attestation: I reviewed the patient's lab results. Lab results narrative: CBC was reviewed. There is a leukocytosis of 15.9. Remainder is within normal limits. PT with INR and PTT were reviewed. Pro time was 15.2 and INR was 1.2. PTT normal at 30.3. Comprehensive metabolic profile was reviewed. Potassium was slightly low at 3.0. Creatinine was slightly elevated at 1.27. This is slightly increased from previous results. Her blood pressure serum lactate was reviewed and was normal at 1.4. Urinalysis was reviewed. Clear there is cloudy yellow urine with leukocyte Estrace of 100. There are 50-100 white blood cells and 3+ bacteria. There are 0-5 epithelial cells. Occult blood was 250 with 25-50 red blood cells. Labs: Laboratory Results - last 24 hr 12/21/24 12/21/24 20:30 20:49 WBC 15.9 H RBC 4.58 Hgb 14.5 Hct 41.7 MCV 91.0 MCH 31.7 MCHC 34.8 RDW Std Deviation 43.0 RDW Coeff of Aubrey 13.0 Plt Count 203 MPV 10.7 Immature Gran % (Auto) 1.100 H Neut % (Auto) 74.3 H Lymph % (Auto) 15.6 L [place] % (Auto) 8.5 Eos % (Auto) 0.1 Baso % (Auto) 0.4 Absolute Neuts (auto) 11.8 H Absolute Lymphs (auto) 2.48 Nucleated RBC % 0 PT 15.2 H INR 1.2 APTT 30.3 Sodium 134 Potassium 3.0 L Chloride 96 L Carbon Dioxide 23.0 Anion Gap 15 BUN 16 Creatinine 1.27 H Estim Creat Clear Calc 60.57 Est GFR (MDRD) Non-Af 47 L BUN/Creatinine Ratio 12.8 Glucose 138 H Lactic Acid 1.4 Calcium 9.5 Total Bilirubin 1.04 AST 33 H ALT 23 Alkaline Phosphatase 157 H Total Protein 7.1 Albumin 3.3 L Globulin 3.8 Albumin/Globulin Ratio 0.8 L Urine Color Yellow Urine Clarity Cloudy Urine pH 6.0 Ur Specific [place] 1.015 Urine Protein 100 H Urine Glucose (UA) Normal Urine Ketones Negative Urine Occult Blood 250 H Urine Nitrite Negative Urine Bilirubin 1 H Urine Urobilinogen 4 H Ur Leukocyte Esterase 100 H Urine RBC 25-50 SEEN Urine WBC 50-100 SEEN Ur Squamous Epith Cells 0-5 SEEN Urine Bacteria 3+ Urine Mucus 2+ Radiography Diagnostic Testing: Clinical Impression(s) from Imaging Studies Abdomen/Pelvis CT 12/21/24 20:28 IMPRESSION: Mild nonspecific right perinephric stranding. Correlate with urinalysis to exclude infection. Colonic diverticulosis. Reading Location: [place] [id number] CT scan of the abdomen and pelvis was obtained. There is mild right perinephric stranding. There is no ureteral calculus. There is no bowel obstruction or perforation. There is no free air or free fluid. This was interpreted by the radiologist and was also independently reviewed by myself. Treatment and Re-Evaluation :: Patient was given IV fluids. Patient was advised of her findings. Patient was started on Levaquin due to her allergy to penicillins. Patient was instructed to take diet fluids. Patient was instructed to follow-up with her primary care physician in 3 to 5 days. Patient was given a prescription for Levaquin. Patient was instructed to return if worse in any way. Patient understood and was agreeable with the plan. All questions were answered. Discharge Plan Triage Chief Complaint: Complaint Other Complaint: General Illness ED Provider: Angel Carter Dx/Rx/DC Orders Clinical Impression: Acute pyelonephritis, Diabetes mellitus, type II, Tobacco use disorder Instructions: ED Pyelonephritis, Female (Adult) Prescriptions: New hydrocodone-acetaminophen 5-325 mg tablet 1 tab PO Q6H PRN PRN (Reason: Pain) 3 Days Qty: 10 0RF ondansetron 4 mg tablet,disintegrating 4 mg PO Q8H PRN PRN (Reason: Nausea) Qty: 10 0RF levofloxacin 750 mg tablet 750 mg PO DAILY Qty: 5 0RF No Action metoprolol succinate 50 mg tablet extended release 24 hr 50 mg PO DAILY ipratropium-albuterol 0.5 mg-3 mg(2.5 mg base)/3 mL solution for nebulization 3 ml INHALATION 4X/DAY PRN (Reason: SHORTNESS OF BREATH/WHEEZING ) Patient Comments: NOT TAKING OFTEN BECAUSE ITS HARD TO CLEAN aspirin 81 mg tablet,delayed release (DR/EC) 162 mg PO DAILY nitroglycerin 0.4 MG tablet 0.4 mg sublingual Q5M PRN (Reason: CHEST PAIN ) gabapentin 300 MG capsule 300 mg PO QHS albuterol sulfate 1 INHALER inhaler 2 puff inhalation Q4H PRN (Reason: SHORTNESS OF BREATH/WHEEZING) Patient Comments: NOT TAKING OFTEN THEY SHOULD lisinopril 20 MG tablet 20 mg PO DAILY metformin 500 MG tablet extended release 24 hr 1,500 mg PO DAILY hydralazine 10 MG tablet 10 mg PO BID rosuvastatin 20 mg tablet 20 mg PO DAILY pantoprazole 40 mg Tablet,Delayed Release (Dr/Ec) 40 mg PO DAILY 30 Days Qty: 30 0RF clopidogrel 75 mg tablet 75 mg PO DAILY Qty: 90 3RF Primary Care Provider: Mac Siddiqui Referrals: Mac Siddiqui MD [Primary Care Provider] - 3-5 Days Print Language: [place] Disposition Disposition: Home, Self Care
--- NOTE | 2024-12-21 20:28 | CT_ITS ---
PROCEDURE: ABDOMEN/PELVIS W IV CONT ONLY 12/21/2024 REASON FOR EXAM: ABDOMINAL PAIN TECHNIQUE: Abdomen and pelvis CT with intravenous contrast. Coronal and Sagittal reconstruction series were provided. PATIENT PREPARATION: Per protocol One or more dose reduction techniques were used (e.g., Automated exposure control, adjustment of the mA and/or kV according to patient size, use of iterative reconstruction technique. RADIATION DOSE SUMMARY: CTDlvol: 3.32+ 23.76 mGy DLP: 1307.59 mGycm COMPARISON: None. FINDINGS: Periumbilical fat containing hernia. Degenerative changes of the spine. Moderate atherosclerosis. Normal caliber abdominal aorta. Surgical clips within the pelvis. No suspicious lymphadenopathy. Hypodense liver suggestive of steatosis. Prior cholecystectomy. The pancreas, spleen, and adrenals are unremarkable. Bilateral renal subcentimeter hypodense lesions that are too small to characterize. Left kidney upper pole simple cyst. No hydroureteronephrosis. Mild nonspecific right perinephric stranding. The urinary bladder is decompressed limiting assessment. The uterus is unremarkable. Normal caliber large and small bowel. Scattered colonic no significant surrounding inflammatory changes. CT/Abdomen/Pelvis W IV Cont ONLY IMPRESSION: Mild nonspecific right perinephric stranding. Correlate with urinalysis to exc lude infection. Colonic diverticulosis. Reading Location: [id number]
[2024-12-21] MEDS: 0.9% Normal Saline (1000mL) 1,000 ML 1000 ML IV (20:50)
[2024-12-21 21:03] LABS: Absolute Lymphocyte Count 2.48 X10^3/uL (0.83-4.51); Absolute Neutrophil Count 11.8 X10^3/uL (2.0-7.7); Basophil# 0.06 X10^3/uL; Basophil% 0.4 % (0-1); Eosinophil# 0.01 X10^3/uL; Eosinophils% 0.1 % (0-5); Hematocrit 41.7 % (37-47); Hemoglobin 14.5 g/dL (12.0-15.0); Lymphocyte # 2.48 X10^3/ul (0.83-4.51); Lymphocyte % 15.6 % (19-41); Mean Corp Hgb Conc 34.8 g/dL (32-36); Mean Corpuscular Hgb 31.7 pg (27.0-32.0); Mean Platelet Vol. 10.7 fl (6.2-12.0); Monocyte# 1.36 X10^3/uL; Monocyte% 8.5 % (0-10); NRBC Flagged by Analyzer 0 % (0-5); Neutrophil # 11.84 X10^3/uL (2.7-7.7); Neutrophil % 74.3 % (47-70); Platelet Count 203 K/mm3 (150-450); Red Blood Count 4.58 M/mm3 (4.2-5.4); White Blood Count 15.9 K/mm3 (4.4-11.0)
[2024-12-21 21:09] LABS: International Normalized Ratio 1.2; Prothrombin Time (Protime)PT. 15.2 SECONDS (11.7-14.9)
[2024-12-21 21:10] LABS: Partial Thromboplast Time 30.3 Seconds (24.1-36.2)
[2024-12-21 21:23] VITALS: BMI 46.7
[2024-12-21 21:26] LABS: Color, Urine Yellow (Yellow); Glucose, Dipstick Normal (Normal); Ketone-Dipstick Negative (Negative); Leukocyte Esterase-Dipstick 100 /ul (Negative); Nitrite-Dipstick Negative (Negative); Occult Blood-Urine 250 /ul (Negative); Protein-Dipstick 100 mg/dl (Negative); Specific Gravity, Urine 1.015 (1.002-1.030); Urine Clarity Cloudy (Clear); Urine Urobilinogen 4 mg/dl (Normal)
[2024-12-21 21:29] VITALS: BP 101/54; PULSE 74; RESP 14; TEMP 36.9; O2SAT 95; BMI 46.7
[2024-12-21 21:30] LABS: Urine Bilirubin Dipstick 1 mg/dL (Negative)
[2024-12-21 21:32] LABS: Lactic Acid 1.4 mmol/L (0.0-2.0)
[2024-12-21 21:33] LABS: ALB/GLOB Ratio 0.8 RATIO (0.9-2.4); AST(SGOT) 33 U/L (<=31); Alanine Aminotransfer ALT/SGPT 23 U/L (<=34); Albumin, Serum 3.3 g/dL (3.4-4.8); Alkaline Phosphatase 157 U/L (35-104); Anion Gap 15 (5-15); BUN 16 mg/dL (4-19); BUN/Creat Ratio 12.8 RATIO (10-20); Calcium,Total 9.5 mg/dL (7.6-11.0); Chloride 96 mmol/L (98-108); Creatinine, Serum 1.27 mg/dL (0.70-1.20); EST Glomerular Filtration Rate 47 (>60); Estimated Creatinine Clearance 60.57 ml/min (50-250); Globulin 3.8 g/dL (2.2-4.2); Glucose 138 mg/dL (70-99); Protein, Total 7.1 g/dL (5.9-8.4); Sodium Level 134 mmol/L (133-145); Total Bilirubin 1.04 mg/dL (0.00-1.30)
[2024-12-21 21:46] LABS: White Blood Cells 50-100 SEEN /hpf (0-5)
[2024-12-21 21:54] LABS: Bacteria 3+ /hpf (None Seen); Mucous, Urine 2+ /hpf (<or=2+); Red Blood Cells-Urine 25-50 SEEN /hpf (0-5)
[2024-12-21 21:55] LABS: Squamous Epithelial Cells - UA 0-5 SEEN /hpf (5-10)
[2024-12-21 22:00] VITALS: BP 113/47; PULSE 74; RESP 22; TEMP 37.1; O2SAT 97
[2024-12-21 23:00] VITALS: BP 91/77; PULSE 77; RESP 15; TEMP 37.1; O2SAT 92
[2024-12-21] MEDS: levoFLOXacin IV 750 MG/150 ML BAG 100 MG IV (23:17)
[2024-12-22] VITALS: BP 96/58; PULSE 82; RESP 20; TEMP 37.6; O2SAT 96
[2024-12-22] MEDS: HYDROcodone Bitartrate/Apap 5/325 Tablet PO (00:26)
[2024-12-22 01:00] VITALS: BP 107/64; PULSE 76; RESP 18; TEMP 37.6; O2SAT 94
[2024-12-22 01:32] VITALS: BP 107/64; PULSE 76; RESP 18; TEMP 37.3; O2SAT 94
== END 2024-12-22 02:18 | disposition home or self-care (01) ==
PROVIDERS: Emergency Provider Emergency Medicine; PCP Family Medicine; Referring Provider Emergency Medicine; Visit Provider Emergency Medicine
DX: N10 Acute pyelonephritis (principal); E11.9 Type 2 diabetes mellitus without complications; E78.5 Hyperlipidemia, unspecified; R06.02 Shortness of breath; I10 Essential (primary) hypertension; I25.10 Atherosclerotic heart disease of native coronary artery without angina pectoris; Z95.5 Presence of coronary angioplasty implant and graft; Z98.51 Tubal ligation status; Z95.1 Presence of aortocoronary bypass graft; Z90.49 Acquired absence of other specified parts of digestive tract; F17.210 Nicotine dependence, cigarettes, uncomplicated
CPT/HCPCS: 74177; 80053; 81001; 83605; 85025; 85610; 85730; 87040; 87077; 87086; 87088; 87149; 87186; 96361; 96365; 96366; 99285; Q9967; A4216

== ENCOUNTER 2025-01-03 11:52 | Observation (INO) | payer MEDICARE, SELFPAY ==
[2019-03-04 14:06] VITALS: BMI 46.6
[2025-01-03] VITALS (11 sets, daily range): BP systolic 91–127; BP diastolic 56–89; PULSE 65–78; RESP 12–20; TEMP 36.4–36.9; O2SAT 91–97; BMI 46.0; BMI 46.7
--- NOTE | 2025-01-03 13:04 | EKG12_ITS ---
Test Reason : WEAKNESS Blood Pressure : */* mmHG Vent. Rate : 69 BPM Atrial Rate : 69 BPM P-R Int : 194 ms QRS Dur : 90 ms QT Int : 404 ms P-R-T Axes : 72 6 60 degrees QTcB Int : 432 ms Normal sinus rhythm Nonspecific T wave abnormality Abnormal ECG Confirmed by EFREN KERNS, LIANA ([id number]), editor in chief DULCE MARTIN ([id number]) on 01/04/2025 11:09:08 AM Referred By: Sara Marte Confirmed By: LIANA SCHWARTZ MD
[2025-01-03 13:16] LABS: Absolute Lymphocyte Count 4.07 X10^3/uL (0.83-4.51); Absolute Neutrophil Count 6.1 X10^3/uL (2.0-7.7); Basophil# 0.14 X10^3/uL; Basophil% 1.2 % (0-1); Eosinophil# 0.15 X10^3/uL; Eosinophils% 1.3 % (0-5); Hematocrit 47.1 % (37-47); Hemoglobin 15.6 g/dL (12.0-15.0); Lymphocyte # 4.07 X10^3/ul (0.83-4.51); Lymphocyte % 35.6 % (19-41); Mean Corp Hgb Conc 33.1 g/dL (32-36); Mean Corpuscular Hgb 30.6 pg (27.0-32.0); Mean Corpuscular Volume 92.5 fL (81-99); Mean Platelet Vol. 9.3 fl (6.2-12.0); Monocyte# 0.88 X10^3/uL; Monocyte% 7.7 % (0-10); NRBC Flagged by Analyzer 0 % (0-5); Neutrophil # 6.14 X10^3/uL (2.7-7.7); Neutrophil % 53.8 % (47-70); Platelet Count 459 K/mm3 (150-450); RBC Distribution Width CV 13.3 % (11.6-14.6); RBC Distribution Width SD 45.5 fl (35.1-43.9); Red Blood Count 5.09 M/mm3 (4.2-5.4); White Blood Count 11.4 K/mm3 (4.4-11.0)
--- NOTE | 2025-01-03 13:18 | EDS_ITS ---
HPI History of Present Illness Chief Complaint: Weakness Narrative Narrative: Patient is a 64-year-old female with past medical history of type 2 diabetes, hypertension, hyperlipidemia, CABG x 2 who presented to the emergency department with a chief complaint of generalized weakness, not feeling well overall. According to the patient she was seeing her primary care doctor for a follow-up appointment after being discharged from the emergency department and noted that she was very weak and had a low blood pressure therefore they sent her here for further evaluation management. She states that she was placed on an antibiotic for her urinary tract infection and then was called back was given a second antibiotic as well. She pulled these out of her purse and they appear to be Bactrim and Levaquin. [facility] Medical History Hernia Tobacco use disorder, continuous Encounter for screening for malignant neoplasm of lung in current smoker with 30 pack year history or greater Tobacco use disorder Diabetes mellitus, type II Dyspnea on minimal exertion Atherosclerotic heart disease of [place] coronary artery with unstable angina pectoris Hyperlipidemia Hypertension Chest pain Home Medications ?Medication ?Instructions ?Recorded ?Last Taken ?Type nitroglycerin 0.4 mg sublingual 0.4 mg sublingual Q5M PRN CHEST 05/15/15 06/16/17 06:00 History tablet PAIN gabapentin 300 mg capsule 300 mg PO QHS NEUROPATHY 01/2505/05/23 History albuterol sulfate 90 mcg/actuation 2 puff inhalation Q 4H PRN 06/17/17 Unknown History aerosol inhaler SHORTNESS OF BREATH/WHEEZING ipratropium 0.5 mg-albuterol 3 mg 3 ml inhalation 4X/D AY PRN 02/28/19 Unknown History (2.5 mg base)/3 mL nebulization SHORTNESS OF BREATH/WH EEZING soln metoprolol succinate 50 mg 50 mg PO DAILY BLOOD PRESSU RE 02/28/19 05/05/23 History tablet,extended release 24 hr aspirin 81 mg tablet,delayed 162 mg PO DAILY HEART HEA LTH 03/01/19 05/05/23 History release clopidogrel 75 mg tablet 75 mg PO DAILY BLOOD THINNER #90 05/19/19 05/05/23 Rx tabs lisinopril 20 mg tablet 20 mg PO DAILY BLOOD PRESSUR E 10/03/19 05/05/23 History metformin 500 mg tablet,extended 1,500 mg PO DAILY EUGENIA BETES 10/03/19 05/05/23 History release 24 hr hydralazine 10 mg tablet 10 mg PO BID BLOOD PRESSURE 05/06/23 05/05/23 History rosuvastatin 20 mg tablet 20 mg PO DAILY CHOLESTEROL 1 05/05/23 History pantoprazole 40 mg tablet,delayed 40 mg PO DAILY 30 da ys #30 tabs 05/07/23 Unknown Rx release hydrocodone-acetaminophen 5-325mg 1 tab PO Q6H PRN PRN Pain 3 days 12/22/24 Unknown Rx 5mg-325mg #10 TABLETS levofloxacin 750 mg tablet 750 mg PO DAILY #5 tabs 07/06 Unknown Rx ondansetron 4 mg disintegrating 4 mg PO Q8H PRN PRN Na usea #10 tabs 12/22/24 Unknown Rx tablet
--- NOTE | 2025-01-03 13:18 | EX.ED.DYSGE1 ---
HPI History of Present Illness Chief Complaint: Weakness Narrative Narrative: Patient is a 64-year-old female with past medical history of type 2 diabetes, hypertension, hyperlipidemia, CABG x 2 who presented to the emergency department with a chief complaint of generalized weakness, not feeling well overall. According to the patient she was seeing her primary care doctor for a follow-up appointment after being discharged from the emergency department and noted that she was very weak and had a low blood pressure therefore they sent her here for further evaluation management. She states that she was placed on an antibiotic for her urinary tract infection and then was called back was given a second antibiotic as well. She pulled these out of her purse and they appear to be Bactrim and Levaquin. [facility] Medical History Hernia Tobacco use disorder, continuous Encounter for screening for malignant neoplasm of lung in current smoker with 30 pack year history or greater Tobacco use disorder Diabetes mellitus, type II Dyspnea on minimal exertion Atherosclerotic heart disease of [place] coronary artery with unstable angina pectoris Hyperlipidemia Hypertension Chest pain Home Medications ?Medication ?Instructions ?Recorded ?Last Taken ?Type nitroglycerin 0.4 mg sublingual 0.4 mg sublingual Q5M PRN CHEST 05/15/15 06/16/17 06:00 History tablet PAIN gabapentin 300 mg capsule 300 mg PO QHS NEUROPATHY 01/17/16 05/05/23 History albuterol sulfate 90 mcg/actuation 2 puff inhalation Q4H PRN 06/17/17 Unknown History aerosol inhaler SHORTNESS OF BREATH/WHEEZING ipratropium 0.5 mg-albuterol 3 mg 3 ml inhalation 4X/DAY PRN 02/28/19 Unknown History (2.5 mg base)/3 mL nebulization SHORTNESS OF BREATH/WHEEZING soln metoprolol succinate 50 mg 50 mg PO DAILY BLOOD PRESSURE 02/28/19 05/05/23 History tablet,extended release 24 hr aspirin 81 mg tablet,delayed 162 mg PO DAILY HEART HEALTH 03/01/19 05/05/23 History release clopidogrel 75 mg tablet 75 mg PO DAILY BLOOD THINNER #90 05/19/19 05/05/23 Rx tabs lisinopril 20 mg tablet 20 mg PO DAILY BLOOD PRESSURE 10/03/19 05/05/23 History metformin 500 mg tablet,extended 1,500 mg PO DAILY DIABETES 10/03/19 05/05/23 History release 24 hr hydralazine 10 mg tablet 10 mg PO BID BLOOD PRESSURE 05/06/23 05/05/23 History rosuvastatin 20 mg tablet 20 mg PO DAILY CHOLESTEROL 05/06/23 05/05/23 History pantoprazole 40 mg tablet,delayed 40 mg PO DAILY 30 days #30 tabs 05/07/23 Unknown Rx release hydrocodone-acetaminophen 5-325mg 1 tab PO Q6H PRN PRN Pain 3 days 12/22/24 Unknown Rx 5mg-325mg #10 TABLETS levofloxacin 750 mg tablet 750 mg PO DAILY #5 tabs 12/22/24 Unknown Rx ondansetron 4 mg disintegrating 4 mg PO Q8H PRN PRN Nausea #10 tabs 12/22/24 Unknown Rx tablet Allergy/AdvReac Type Severity Reaction Status Date / Time nickel Allergy Rash Verified 01/03/25 11:57 Penicillins (PCN) Allergy Hives Verified 01/03/25 11:57 nicotine (From Nicoderm CQ) AdvReac Severe TERRIBLE Verified 01/03/25 11:57 NIGHTMARES Family History Mother Kidney disease Congestive heart failure Renal failure Father CAD (coronary artery disease) Daughter Hypertension Surgical History History of left heart catheterization (10/05/19) Stented coronary artery (03/03/19) History of tubal ligation History of total right knee replacement History of History of tonsillectomy and adenoidectomy History of rotator cuff surgery History of selective injection of anesthetic agent around lumbar nerve root History of arthroscopic knee surgery History of esophagogastroduodenoscopy (EGD) History of colonoscopy History of cholecystectomy S/P CABG x 2 (10/17/15) Social History Smoking Status: Current every day smoker tobacco type: cigarettes alcohol intake: never substance use type: does not use ROS ROS ED ROS Narrative Constitutional: Denies fevers, chills, headaches Cardiovascular: Denies chest pain Respiratory: Denies shortness of breath Abdomen: Denies abdominal pain nausea vomit diarrhea : Complains of the painful urination Neurological: Denies numbness, weakness, tingling Musculoskeletal: Denies back pain Skin: Denies rashes or lesions EXAM Physical Exam Narrative Exam Narrative: General: Patient was lying in bed rest comfortably did not appear to be in acute distress Head: Atraumatic, normocephalic Eyes: PERRL bilaterally, EOMI bilateral, no conjunctival injection noted Neck: Soft, supple, trachea midline Cardiovascular: Regular rate and rhythm Respiratory: Clear to auscultation bilaterally Abdomen: Soft, tenderness to palpation epigastric and right upper quadrants no rebound or guarding on exam Extremities: +5/5 strength noted in the bilateral upper and lower extremities, you pulses +2/4 in the bilateral extremities, no pedal edema on exam Neurological: Patient follow commands knew that she was at [facility] year is 2024 Skin: Warm, dry, intact no rashes or lesions noted Const Vital Signs: 01/03/25 11:53 01/03/25 13:04 01/03/25 13:57 Temperature 97.6 F L 97.6 F L Temperature Source Oral Oral Pulse Rate 78 73 Pulse Rate [Lying] Pulse Rate [Sitting (for 1 minute prior to obtaining)] Pulse Rate [Standing (for 1 minute prior to obtaining)] Respiratory Rate 20 H 15 Blood Pressure 125/72 H 99/57 L Blood Pressure [Lying] Blood Pressure [Sitting (for 1 minute prior to obtaining)] Blood Pressure [Standing (for 1 minute prior to obtaining)] Blood Pressure Mean 89 71 Blood Pressure Mean [Lying] Blood Pressure Mean [Sitting (for 1 minute prior to obtaining)] Blood Pressure Mean [Standing (for 1 minute prior to obtaining)] Pulse Ox 96 96 Oxygen Delivery Method Room Air Room Air Room Air 01/03/25 14:00 01/03/25 15:00 01/03/25 16:58 Temperature 98.2 F 97.8 F Temperature Source Oral Temporal Pulse Rate 70 65 Pulse Rate [Lying] 65 Pulse Rate [Sitting (for 1 minute prior to obtaining)] 66 Pulse Rate [Standing (for 1 minute prior to obtaining)] 73 Respiratory Rate 15 17 Blood Pressure 116/67 127/71 H Blood Pressure [Lying] 119/56 L Blood Pressure [Sitting (for 1 minute prior to obtaining)] 125/68 H Blood Pressure [Standing (for 1 minute prior to obtaining)] 122/68 H Blood Pressure Mean 83 89 Blood Pressure Mean [Lying] 77 Blood Pressure Mean [Sitting (for 1 minute prior to obtaining)] 87 Blood Pressure Mean [Standing (for 1 minute prior to obtaining)] 86 Pulse Ox 95 97 Oxygen Delivery Method Room Air Room Air 01/03/25 17:12 Temperature Temperature Source Pulse Rate 74 Pulse Rate [Lying] Pulse Rate [Sitting (for 1 minute prior to obtaining)] Pulse Rate [Standing (for 1 minute prior to obtaining)] Respiratory Rate 12 Blood Pressure 122/68 H Blood Pressure [Lying] Blood Pressure [Sitting (for 1 minute prior to obtaining)] Blood Pressure [Standing (for 1 minute prior to obtaining)] Blood Pressure Mean 86 Blood Pressure Mean [Lying] Blood Pressure Mean [Sitting (for 1 minute prior to obtaining)] Blood Pressure Mean [Standing (for 1 minute prior to obtaining)] Pulse Ox 97 Oxygen Delivery Method MDM MDM MDM Narrative Medical decision making narrative: Patient is a 64-year-old female who presented to the emergency department the chief complaint of generalized fatigue, weakness not feeling well. On the differential diagnose includes but not limited to UTI, pyelonephritis, choledocholithiasis, pancreatitis. Once workup is obtained reviewed she will be reevaluated. Patient's PCP called in and I discussed with them she states that she was recently discharged after being diagnosed with pyelonephritis and was placed on Bactrim and Levaquin she states that in the office today she was extremely weak is having poor oral intake and her blood pressure was noted to be 90/70 and after she tried to stand up it went to 70/40 therefore they had her brought here to be further evaluated. Patient CBC reviewed showed a white blood count 11,000, hemoglobin 15.6, platelet count of 459. Patient's INR normal at 1.1, PT of 14.6. Patient sodium is 135, potassium normal at 4.9, creatinine elevated 1.39 which is slightly elevated from a previous blood draw on 12/21/2024. Patient lactic acid normal at 1.7, AST and ALT were 43 and 29 respectively. Patient's urinalysis reviewed and showed 25 leukocyte esterase negative nitrates 10-25 white cells with no bacteria noted which is improved from the urinalysis on 12/21/2024. Patient CT abdomen pelvis with IV contrast reviewed today which showed fatty infiltration the liver status post cholecystectomy. Stable left renal cyst small umbilical hernia containing fat. Sigmoid diverticulosis Patient ambulated here in the emergency department she states that she felt very lightheaded and weak overall and she states that she is still having severe pain in her abdomen. Patient is requesting where her pain medications. At this point time will discuss case with hospitalist for admission for her intractable abdominal pain nausea and lightheadedness with ambulation orthostatic vital signs will be obtained. Patient got up and ambulated to the bathroom again and felt very lightheaded and weak with her intractable abdominal pain nausea. Orthostatic vital signs negative I discussed case with hospitalist She will accept patient for admission. Patient is agreeable this plan all course concerns answered. Lab Data Labs: Laboratory Results - last 24 hr 01/03/25 01/03/25 01/03/25 13:04 13:13 13:38 WBC 11.4 H RBC 5.09 Hgb 15.6 H Hct 47.1 H MCV 92.5 MCH 30.6 MCHC 33.1 RDW Std Deviation 45.5 H RDW Coeff of Aubrey 13.3 Plt Count 459 H MPV 9.3 Immature Gran % (Auto) 0.400 Neut % (Auto) 53.8 Lymph % (Auto) 35.6 [place] % (Auto) 7.7 Eos % (Auto) 1.3 Baso % (Auto) 1.2 H Absolute Neuts (auto) 6.1 Absolute Lymphs (auto) 4.07 Nucleated RBC % 0 PT 14.6 INR 1.1 APTT 26.3 Sodium 135 Potassium 4.9 Chloride 100 Carbon Dioxide 21.6 Anion Gap 13 BUN 20 H Creatinine 1.39 H Estim Creat Clear Calc 54.91 Est GFR (MDRD) Non-Af 42 L BUN/Creatinine Ratio 14.5 Glucose 133 H Lactic Acid 1.7 Calcium 9.9 Total Bilirubin 0.50 AST 43 H ALT 29 Alkaline Phosphatase 57 Total Protein 7.6 Albumin 3.7 Globulin 3.8 Albumin/Globulin Ratio 1.0 Urine Color Yellow Urine Clarity Sl. Cloudy Urine pH 6.0 Ur Specific [place] 1.020 Urine Protein 30 H Urine Glucose (UA) Normal Urine Ketones Negative Urine Occult Blood 25 H Urine Nitrite Negative Urine Bilirubin 1 H Urine Urobilinogen 1 H Ur Leukocyte Esterase 25 H Urine RBC 0-5 SEEN Urine WBC 10-25 SEEN Ur Squamous Epith Cells 5-10 SEEN Urine Bacteria 0 SEEN Urine Mucus 0 SEEN Radiography Diagnostic Testing: Clinical Impression(s) from Imaging Studies Abdomen/Pelvis CT 01/03/25 13:55 IMPRESSION: Fatty infiltration of the liver. Status post cholecystectomy. Stable left renal cyst. Small umbilical hernia containing fat. Sigmoid diverticulosis. Reading Location: [id number] Discharge Plan Triage Chief Complaint: Weakness ED Provider: Clem Madden Dx/Rx/DC Orders Clinical Impression: Generalized weakness, Intractable nausea, Intractable abdominal pain Prescriptions: No Action metoprolol succinate 50 mg tablet extended release 24 hr 50 mg PO DAILY ipratropium-albuterol 0.5 mg-3 mg(2.5 mg base)/3 mL solution for nebulization 3 ml INHALATION 4X/DAY PRN (Reason: SHORTNESS OF BREATH/WHEEZING ) Patient Comments: NOT TAKING OFTEN BECAUSE ITS HARD TO CLEAN aspirin 81 mg tablet,delayed release (DR/EC) 162 mg PO DAILY nitroglycerin 0.4 MG tablet 0.4 mg sublingual Q5M PRN (Reason: CHEST PAIN ) gabapentin 300 MG capsule 300 mg PO QHS albuterol sulfate 1 INHALER inhaler 2 puff inhalation Q4H PRN (Reason: SHORTNESS OF BREATH/WHEEZING) Patient Comments: NOT TAKING OFTEN THEY SHOULD lisinopril 20 MG tablet 20 mg PO DAILY metformin 500 MG tablet extended release 24 hr 1,500 mg PO DAILY hydralazine 10 MG tablet 10 mg PO BID rosuvastatin 20 mg tablet 20 mg PO DAILY pantoprazole 40 mg Tablet,Delayed Release (Dr/Ec) 40 mg PO DAILY 30 Days Qty: 30 0RF hydrocodone-acetaminophen 5-325 mg tablet 1 tab PO Q6H PRN PRN (Reason: Pain) 3 Days Qty: 10 0RF ondansetron 4 mg tablet,disintegrating 4 mg PO Q8H PRN PRN (Reason: Nausea) Qty: 10 0RF levofloxacin 750 mg tablet 750 mg PO DAILY Qty: 5 0RF clopidogrel 75 mg tablet 75 mg PO DAILY Qty: 90 3RF Primary Care Provider: Mac Siddiqui Referrals: Mac Siddiqui MD [Primary Care Provider] - Print Language: Iranian Disposition Disposition: [facility]
[2025-01-03 13:38] LABS: AST(SGOT) 43 U/L (<=31); Alanine Aminotransfer ALT/SGPT 29 U/L (<=34); Albumin, Serum 3.7 g/dL (3.4-4.8); Alkaline Phosphatase 57 U/L (35-104); Anion Gap 13 (5-15); BUN 20 mg/dL (4-19); BUN/Creat Ratio 14.5 RATIO (10-20); Calcium,Total 9.9 mg/dL (7.6-11.0); Carbon Dioxide 21.6 mmol/L (21.0-32.0); Chloride 100 mmol/L (98-108); Creatinine, Serum 1.39 mg/dL (0.70-1.20); EST Glomerular Filtration Rate 42 (>60); Estimated Creatinine Clearance 54.91 ml/min (50-250); Globulin 3.8 g/dL (2.2-4.2); Glucose 133 mg/dL (70-99); Potassium 4.9 mmol/L (3.3-5.1); Protein, Total 7.6 g/dL (5.9-8.4); Sodium Level 135 mmol/L (133-145)
[2025-01-03] MEDS: 0.9% Normal Saline (1000mL) 1,000 ML 999 ML IV ×3 (13:39→16:28)
--- NOTE | 2025-01-03 13:55 | CT_ITS ---
PROCEDURE: ABDOMEN/PELVIS W IV CONT ONLY 01/03/2025 REASON FOR EXAM: ABD PAIN TECHNIQUE: ABDOMEN/PELVIS W IV CONT ONLY Coronal and Sagittal reconstruction series were provided. CONTRAST: Isovue-300 VOLUME: 85 mL One or more dose reduction techniques were used (e.g., Automated exposure control, adjustment of the mA and/or kV according to patient size, use of iterative reconstruction technique. RADIATION DOSE SUMMARY: CTDlvol: 17 mGy DLP: 1361.11 mGycm COMPARISON: Prior study dated December 21, 2024. FINDINGS: Lung bases: Lung bases are clear. Liver: Diffuse fatty infiltration. Gallbladder: Surgically absent. Spleen: Normal size. Pancreas: Normal size without evidence of mass surrounding inflammation or ductal dilation. Adrenals: Unremarkable Kidneys: There is a 3.2 cm cyst in the upper lateral portion of the left kidney. Right kidney is unremarkable. Bladder: Unremarkable There is evidence of an umbilical hernia containing fat. The neck of the hernia measures 1.5 cm. Bowel: Colonic diverticulosis without diverticulitis.. Evidence of prior bilateral tubal ligation clips. Appendix: The appendix is not identified. There is no inflammatory process identified in the right lower quadrant to suggest appendicitis. Lymph nodes: Small benign-appearing retroperitoneal lymph nodes. Vasculature: Mild diffuse atherosclerotic calcifications are noted. Peritoneum / Retroperitoneum: Unremarkable Bones: Degenerative changes of the spine. CT/Abdomen/Pelvis W IV Cont ONLY IMPRESSION: Fatty infiltration of the liver. Status post cholecystectomy. Stable left renal cyst. Small umbilical hernia containing fat. Sigmoid diverticulosis. Reading Location: [id number]
[2025-01-03 13:56] LABS: Lactic Acid 1.7 mmol/L (0.0-2.0)
[2025-01-03 14:12] LABS: International Normalized Ratio 1.1; Prothrombin Time (Protime)PT. 14.6 SECONDS (11.7-14.9)
[2025-01-03 14:13] LABS: Partial Thromboplast Time 26.3 Seconds (24.1-36.2)
[2025-01-03 14:19] LABS: Bacteria 0 SEEN /hpf (None Seen); Mucous, Urine 0 SEEN /hpf (<or=2+)
[2025-01-03 14:47] LABS: Color, Urine Yellow (Yellow); Glucose, Dipstick Normal (Normal); Ketone-Dipstick Negative (Negative); Leukocyte Esterase-Dipstick 25 /ul (Negative); Nitrite-Dipstick Negative (Negative); Occult Blood-Urine 25 /ul (Negative); Protein-Dipstick 30 mg/dl (Negative); Urine Clarity Sl. Cloudy (Clear); Urine Urobilinogen 1 mg/dl (Normal)
[2025-01-03 14:55] LABS: Urine Bilirubin Dipstick 1 mg/dL (Negative)
[2025-01-03 15:25] LABS: White Blood Cells 10-25 SEEN /hpf (0-5)
[2025-01-03 15:30] LABS: Red Blood Cells-Urine 0-5 SEEN /hpf (0-5); Squamous Epithelial Cells - UA 5-10 SEEN /hpf (5-10)
--- NOTE | 2025-01-03 18:39 | PCM.HP.STD ---
HPI - General General Date of Admission: 01/03/25 Date of Service: 01/03/25 Chief Complaint: Nausea, vomiting, abd pain HPI Narrative CAROL HORNER, is a 64-year-old female history of type 2 diabetes, hypertension, CABG x 2, GERD presented [facility] ED 01/03/2025 with generalized weakness, abdominal pain, nausea vomiting and feeling unwell. She was seeing her primary care physician for a follow-up appointment after a recent discharge and noted that she was weak and at her PCPs office she was noted to have blood pressure with systolics in the 90s that reportedly dropped to 70s when she stood up. She was sent to the ED for further evaluation management. Reportedly she was on an antibiotic for a UTI and then another antibiotic was called in so she is on Bactrim and Levaquin and her last antibiotics was today. In the ED temp 97.6, heart rate 78, blood pressure 125/72, respiratory rate 20 and pulse ox 96% on room air. Orthostats negative. UA does not appear overtly infectious. White blood cell count 11.4 and BMP with BUN of 20 and creatinine 1.39 slightly up from previous. Lactic acid within normal limits. Given complaints of nausea and abdominal pain CT abdomen pelvis obtained with no acute process. Due to patient's weakness and her nausea and vomiting hospitalist contacted for admission. Patient evaluated at bedside she reports that for the past 4 weeks she has had lower abdominal pain that radiates towards her flanks and nausea and vomiting was only able to eat small things at a time, frequently feels lightheaded and generally unwell and has lost 11 pounds. Reports the burning on urination is better than it was when she is found to have UTI, reports intermittently she will have diarrhea but then most recently had normal bowel movement. Does occasionally get shortness of breath for discomfort in her chest but these are at random and fleeting. Denies any fevers. Denies any upper abdominal pain at this time [facility] Medical History Hernia Tobacco use disorder, continuous Encounter for screening for malignant neoplasm of lung in current smoker with 30 pack year history or greater Tobacco use disorder Diabetes mellitus, type II Dyspnea on minimal exertion Atherosclerotic heart disease of [place] coronary artery with unstable angina pectoris Hyperlipidemia Hypertension Chest pain Home Medications ?Medication ?Instructions ?Recorded ?Last Taken ?Type nitroglycerin 0.4 mg sublingual 0.4 mg sublingual Q5M PRN CHEST 05/15/15 06/16/17 06:00 History tablet PAIN metoprolol succinate 50 mg 50 mg PO DAILY BLOOD PRESSURE 02/28/19 05/05/23 History tablet,extended release 24 hr aspirin 81 mg tablet,delayed 162 mg PO DAILY HEART HEALTH 03/01/19 05/05/23 History release clopidogrel 75 mg tablet 75 mg PO DAILY BLOOD THINNER #90 05/19/19 05/05/23 Rx tabs lisinopril 20 mg tablet 40 mg PO DAILY BLOOD PRESSURE 10/03/19 05/05/23 History metformin 500 mg tablet,extended 1,500 mg PO DAILY DIABETES 10/03/19 05/05/23 History release 24 hr rosuvastatin 20 mg tablet 40 mg PO DAILY CHOLESTEROL 05/06/23 05/05/23 History fluticasone furoate 200 1 ea inhalation DAILY 01/03/25 Unknown History mcg-vilanterol 25 mcg/dose inhalation powder (Breo Ellipta) Allergy/AdvReac Type Severity Reaction Status Date / Time nickel Allergy Rash Verified 01/03/25 11:57 Penicillins (PCN) Allergy Hives Verified 01/03/25 11:57 nicotine (From Nicoderm CQ) AdvReac Severe TERRIBLE Verified 01/03/25 11:57 NIGHTMARES Family History Mother Kidney disease Congestive heart failure Renal failure Father CAD (coronary artery disease) Daughter Hypertension Surgical History History of left heart catheterization (10/05/19) Stented coronary artery (03/03/19) History of tubal ligation History of total right knee replacement History of History of tonsillectomy and adenoidectomy History of rotator cuff surgery History of selective injection of anesthetic agent around lumbar nerve root History of arthroscopic knee surgery History of esophagogastroduodenoscopy (EGD) History of colonoscopy History of cholecystectomy S/P CABG x 2 (10/17/15) Social History Smoking Status: Current every day smoker tobacco type: cigarettes alcohol intake: never substance use type: does not use ROS ROS Narrative General: Denies fever/chills HENT: Denies headache, denies stuffy nose, denies sore throat EYES: Denies changes in vision Resp: Occasional cough and occasional shortness of breath Cardiac: Denies chest pain GI: Abdominal pain suprapubic that radiates around her flanks, nausea and vomiting with difficulty taking p.o., reports she will alternate with some diarrhea for her bowel movements but most recently has been normal : Burning in urination has been improving since her UTI Extremity: Denies swelling MSK: Generalized weakness Neuro: Denies any acute changes in numbness/tingling Heme: Easy bruising Skin: Denies rashes Psychiatric: Feels frustrated with her ongoing symptoms Vital Signs Vital Signs Vital Signs: 01/03/25 11:53 01/03/25 13:04 01/03/25 13:57 Temperature 97.6 F L 97.6 F L Temperature Source Oral Oral Pulse Rate 78 73 Pulse Rate [Lying] Pulse Rate [Sitting (for 1 minute prior to obtaining)] Pulse Rate [Standing (for 1 minute prior to obtaining)] Respiratory Rate 20 H 15 Blood Pressure 125/72 H 99/57 L Blood Pressure [Lying] Blood Pressure [Sitting (for 1 minute prior to obtaining)] Blood Pressure [Standing (for 1 minute prior to obtaining)] Blood Pressure Mean 89 71 Blood Pressure Mean [Lying] Blood Pressure Mean [Sitting (for 1 minute prior to obtaining)] Blood Pressure Mean [Standing (for 1 minute prior to obtaining)] Pulse Ox 96 96 Oxygen Delivery Method Room Air Room Air Room Air 01/03/25 14:00 01/03/25 15:00 01/03/25 16:58 Temperature 98.2 F 97.8 F Temperature Source Oral Temporal Pulse Rate 70 65 Pulse Rate [Lying] 65 Pulse Rate [Sitting (for 1 minute prior to obtaining)] 66 Pulse Rate [Standing (for 1 minute prior to obtaining)] 73 Respiratory Rate 15 17 Blood Pressure 116/67 127/71 H Blood Pressure [Lying] 119/56 L Blood Pressure [Sitting (for 1 minute prior to obtaining)] 125/68 H Blood Pressure [Standing (for 1 minute prior to obtaining)] 122/68 H Blood Pressure Mean 83 89 Blood Pressure Mean [Lying] 77 Blood Pressure Mean [Sitting (for 1 minute prior to obtaining)] 87 Blood Pressure Mean [Standing (for 1 minute prior to obtaining)] 86 Pulse Ox 95 97 Oxygen Delivery Method Room Air Room Air 01/03/25 17:12 Temperature Temperature Source Pulse Rate 74 Pulse Rate [Lying] Pulse Rate [Sitting (for 1 minute prior to obtaining)] Pulse Rate [Standing (for 1 minute prior to obtaining)] Respiratory Rate 12 Blood Pressure 122/68 H Blood Pressure [Lying] Blood Pressure [Sitting (for 1 minute prior to obtaining)] Blood Pressure [Standing (for 1 minute prior to obtaining)] Blood Pressure Mean 86 Blood Pressure Mean [Lying] Blood Pressure Mean [Sitting (for 1 minute prior to obtaining)] Blood Pressure Mean [Standing (for 1 minute prior to obtaining)] Pulse Ox 97 Oxygen Delivery Method Weight Weight: 129.455 kg Body Mass Index (BMI) 46.0 Physical Exam Narrative General: Alert, oriented, no apparent distress HEENT: Atraumatic, normocephalic Eyes: Anicteric, normal conjunctiva, extraocular movements grossly intact Neck: Supple Respiratory: Clear to auscultation bilaterally, normal respiratory effort Cardiovascular: Regular rate and rhythm GI: Soft, tender in various spots but not necessarily reproducible, more on the right side than the left side, no rebound, guarding, rigidity Extremities: No pitting edema Musculoskeletal: Moving all extremities Neuro: No overt focal neurological deficits Skin: No rashes appreciated Psych: Cooperative Results Lab / Micro Data 01/03/25 13:04 01/03/25 13:04 Labs: Laboratory Results - last 24 hr 01/03/25 13:04: WBC 11.4 H, RBC 5.09, Hgb 15.6 H, Hct 47.1 H, MCV 92.5, MCH 30.6, MCHC 33.1, RDW Std Deviation 45.5 H, RDW Coeff of Aubrey 13.3, Plt Count 459 H, MPV 9.3, Immature Gran % (Auto) 0.400, Neut % (Auto) 53.8, Lymph % (Auto) 35.6, Harper % (Auto) 7.7, Eos % (Auto) 1.3, Baso % (Auto) 1.2 H, Absolute Neuts (auto) 6.1, Absolute Lymphs (auto) 4.07, Nucleated RBC % 0, PT 14.6, INR 1.1, APTT 26.3, Sodium 135, Potassium 4.9, Chloride 100, Carbon Dioxide 21.6, Anion Gap 13, BUN 20 H, Creatinine 1.39 H, Estim Creat Clear Calc 54.91, Est GFR (MDRD) Non-Af 42 L, BUN/Creatinine Ratio 14.5, Glucose 133 H, Calcium 9.9, Total Bilirubin 0.50, AST 43 H, ALT 29, Alkaline Phosphatase 57, Total Protein 7.6, Albumin 3.7, Globulin 3.8, Albumin/Globulin Ratio 1.0 01/03/25 13:13: Lactic Acid 1.7 01/03/25 13:38: Urine Color Yellow, Urine Clarity Sl. Cloudy, Urine pH 6.0, Ur Specific [place] 1.020, Urine Protein 30 H, Urine Glucose (UA) Normal, Urine Ketones Negative, Urine Occult Blood 25 H, Urine Nitrite Negative, Urine Bilirubin 1 H, Urine Urobilinogen 1 H, Ur Leukocyte Esterase 25 H, Urine RBC 0-5 SEEN, Urine WBC 10-25 SEEN, Ur Squamous Epith Cells 5-10 SEEN, Urine Bacteria 0 SEEN, Urine Mucus 0 SEEN Imaging Radiology Impression Abdomen/Pelvis CT 01/03/25 13:55 IMPRESSION: Fatty infiltration of the liver. Status post cholecystectomy. Stable left renal cyst. Small umbilical hernia containing fat. Sigmoid diverticulosis. Reading Location: [id number] Assessment & Plan Assessment/Plan (1) Intractable nausea: PLAN: Plan # Nausea/vomiting/abdominal pain/weight loss -CT abdomen/pelvis with no acute process however patient reports weight loss and that she has only been able to eat small amounts at a time -Given her diabetes query if she could have gastroparesis -Will order a gastric emptying study -Antiemetics -Will start with transitional diet and advance as tolerated, can scale back to liquids if she continues to have symptoms -Gentle IV fluids -Will check lipase -Lower suspicion for ulcers/GERD appears at some point she was post be on a PPI and is not taking this, will have patient on PPI for now to see if this helps -Can consider GI consult if no improvement - Will check TSH - UA did not appear infectious, patient did have blood and urine cultures obtained in the ED, of note last admission she had blood cultures positive for Staph hominis hominis, unclear if this was contaminant but cultures were already been repeated as below #Type 2 diabetes mellitus -Glucose checks and sliding scale insulin - Will check A1c #Hx of CAD -w/ previous CABG x 2 -Continue home medications #Tobacco use -Advise cessation -Nicotine replacement available if desired, presently does not want any #Hypertension - Patient has had blood pressure that has been on the low end of normal, will hold lisinopril, will decrease her metoprolol #Hx COPD -Continue home inhalers -Incentive spirometer #Morbid obesity -BMI documented as 46.1 kg/m? at time of admission -Complicates treatment, prognosis, outcomes -Recommend weight loss and lifestyle changes #DVT ppx: Lovenox subcu Sara Marte MD Charges/Coding Visit Charges Inpatient E&M: 68056 Init Hosp L2
--- NOTE | 2025-01-03 20:30 | NM_ITS ---
PROCEDURE: GASTRIC EMPTYING STUDY 01/04/2025 REASON FOR EXAM: CONCERN FOR GASTROPARESIS COMPARISON: None TECHNIQUE: The patient ingested a standard meal of oatmeal, sulfur colloid and water. There was no vomiting postprandially. Anterior and posterior planar images of the upper abdomen were obtained for 1 minute immediately following the meal at 1h, 2h and 4h if more than 10% of the activity persisted within the stomach. Regions of interest were drawn, and a geometric mean was used to calculate a [id number]. RADIOPHARMACEUTICAL: Sulfur colloid DOSE 1 mCimCi FINDINGS: Percent activity remaining in stomach: 1 hour 48 % (normal 37-90%) NM/Gastric Emptying Study IMPRESSION: Normal gastric emptying. Reading Location: [id number]
[2025-01-03] MEDS: oxyCODONE 5 MG Tablet 2.5 MG PO (21:12)
[2025-01-03] MEDS: Enoxaparin 40 MG/0.4 ML Syringe SC (21:13)
[2025-01-03] MEDS: 0.9% Normal Saline (1000mL) 1,000 ML 50 ML IV (21:15)
[2025-01-03] MEDS: Pantoprazole Sodium 40 MG in 0.9% Normal Saline (100mL MB+) 100 ML 300 MG IV (21:17)
[2025-01-03] MEDS: Ondansetron 4 MG/2 ML Vial IV (21:30)
[2025-01-03 21:44] LABS: Lipase 40 U/L (13-75)
[2025-01-03 22:29] LABS: Bedside Glucose 114 mg/dL (74-106)
--- OUTSIDE RECORDS SUMMARY | 2025-01-03 22:31 | XMS RPT_ITS | CCD ---
Author Organization [facility] Team Providers Care Banana Carrier Name Role Phone KRISTEN BEAN Unavailable Unavailable KRISTEN BEAN Unavailable Unavailable Mac Olvera Unavailable Unavailable KRISTEN BEAN Unavailable Unavailable IMCA Unavailable Unavailable Mac Olvera Unavailable Unavailable KRISTEN BEAN Unavailable Unavailable KRISTEN BEAN Unavailable Unavailable Mac Olvera Unavailable Unavailable Nicole Rodríguez Unavailable Mac Olvera MD Primary Care Provider Nicole Rodríguez Unavailable Mac Olvera MD Primary Care Provider Nicole Rodríguez Unavailable Mac Olvera MD Primary Care Provider Nicole Rodríguez Unavailable Mac Olvera MD Primary Care Provider Dr. Mac Olvera Primary Care Provider Dr. Angel Carter Emergency Provider Dr. Harmony Argueta Admit Provider Dr. Harmony Argueta Other Provider Dr. Sara Marte Other Provider Dr. Franc العراقي Attending Provider Dr. Sara Marte Attending Provider Mac Olvera MD Primary Care Provider Haagen CUSHION FORMER.SHIFT PRODUCTION ASSOCIATE, Shelby Unavailable Suppan CUSHION FORMER.SHIFT PRODUCTION ASSOCIATE, Lauryn A Unavailable Suppan CUSHION FORMER.SHIFT PRODUCTION ASSOCIATE, Lauryn A Unavailable [phone] Dr. Mac Olvera MD Primary Care Provider Dr. Angel Carter DO Referring Provider Dr. Angel Carter DO Emergency Provider MAY, MAC J Primary Care Unavailable MAY, AMC J Referring Unavailable MAY, MAC J Primary Care Unavailable HARPSTER, SHANITA Referring Unavailable RC DELACRUZ Referring Unavailable MAY, MAC J Primary Care Unavailable HARPSTER, SHANITA Attending Unavailable HARPSTER, SHANITA Referring Unavailable MAY, MAC J Primary Care Unavailable SUPPAN, LAURYN A Attending Unavailable MAY, MAC J Primary Care Unavailable SUPPDUYEN, LAURYN Cifuentes Attending Unavailable MAY, MAC J Primary Care Unavailable HANNA JONES Attending Unavailable SUPPAN, LAURYN A Referring Unavailable MAY, MAC J Primary Care Unavailable JAYMERC SANTORO Attending Unavailable MAY, MAC J Primary Care Unavailable MAY, MAC J Primary Care Unavailable MAY, MAC J Referring Unavailable SUPPAN, LAURYN A Referring Unavailable MAY, MAC J Primary Care Unavailable HANNA JONES Attending Unavailable MAY, MAC J Primary Care Unavailable ADRIANA MATHIS Attending Unavailable MAY, MAC J Primary Care Unavailable HARPSTER, SHANITA Referring Unavailable MAY, MAC J Primary Care Unavailable MAY, MAC J Primary Care Unavailable RC DELACRUZ Referring Unavailable MAY, MAC J Primary Care Unavailable HARPSTER, SHANITA Referring Unavailable HARPSTER, SHANITA Referring Unavailable MAY, MAC J Primary Care Unavailable RC DELACRUZ Attending Unavailable MAY, MAC J Primary Care Unavailable [place], Mac Primary Care Unavailable Angel Carter Referring Unavailable Angel Carter Attending Unavailable Dr. Angel Carter DO Attending Provider Dr. Clem Madden DO Emergency Provider Dr. Sara Marte MD Admit Provider [phone] Sara Marte MD Attending Provider Dr. Sara Marte MD Referring Provider [phone] Allergies Allergy Classification Reported Allergen(s) Allergy Type Date of Onset Reaction(s) Facility (20 sources) nickel; Translations: [NICKEL] Drug Allergy 5 Other: See Comments, Unknown [facility] Repository (20 sources) Penicillins; Translations: [PENICILLINS] Propensity to adverse reactions (disorder) 5 Hives, Swelling [facility] Repository (4 sources) Nicotine Drug Allergy 3 TERRIBLE [place] [facility] (1 source) Nicotine Drug Allergy 3 [facility] Repository Medications Current Medications Medication Drug Class(es) Dates Sig (Normalized) Sig (Original) [id number] 200 actuat albuterol 0.09 mg/actuat metered dose inhaler (20 sources) beta2-Adrenergic Agonist Start: 02-05-2022 End: 03-17-2024 take 2 puff(s) by inhalation every six hours as needed for wheezing albuterol HFA (PROVENTIL HFA, VENTOLIN HFA) 90 mcg/actuation inhaler Inhale 2 Puffs as instructed every 6 hours as needed for wheezing/shortnes s of breath. 1 Each 3 03/17/2024 Active Start: 06-17-2017 End: 02-05-2022 take 2 puff(s) by inhalation every four hours as needed for wheezing VENTOLIN HFA 90 mcg/actuation inhaler Indications: Shortness of breath Inhale 2 Puffs as instructed every 4 hours as needed for Wheezing/Shortness of Breath. 1 Inhaler 1 06/17/2017 02/05/2022 Discontinued Start: 06-17-2017 End: 01-03-2025 Albuterol Sulfate 1 INHALER inhaler Discontinued 2 NMA INHALATION Q4H as needed for SHORTNESS OF BREATH/WHEEZING June 17, 2017 1:00am January 03, 2025 6:18pm Start: 06-17-2017 Albuterol Sulf ate 1 INHALER inhaler Active 2 NMA INHALATION Q4H as needed for SHORTNESS OF BREATH/WHEEZING June 17, 2017 1:00am Start: 06-17-2017 take 1 puff(s) by in halation every four hours Albuterol Sulfate Active 2 PUFF INHALATION Q4H June 17, 2017 1:00am Comment on above: Inhale 2 Puffs as in structed every 4 hours as needed for Wheezing/Shortness of Breath. Inhale 2 Puffs as in structed every 6 hours as needed for wheezing/shortness of breath. albuterol 0.833 mg/ml / ipratropium bromide 0.167 mg/ml inhalation solution (20 sources) Anticholinergic, beta2-Adrenergic Agonist Start: 019 End: 025 take 3 mL by inhalation four times daily ipratropium-albut jacquie (DUONEB) 0.5 mg-3 mg(2.5 mg base)/3 mL nebu Indications: Shortness of breath Inhale 3 mL as instructed four times daily. 120 Vial 3 08/26/2021 Active Start: 02-28-2019 take 1 mL by inhalat ion four times daily Ipratropium-Albuterol Active 3 ML INHALATION 4 TIMES DAILY February 28, 2019 12:00am Comment on above: Inhale 3 mL as instr ucted four times daily. aspirin 81 mg delayed release oral tablet (20 sources) Platelet Aggregation Inhibitor, Nonsteroidal Anti-inflammatory Drug Start: 05-15-2015 End: 01-24-2025 take 2 tablets by mouth once daily aspirin, enteric coated (ASPIRIN, ENTERIC COATED) 81 mg EC tablet Indications: Coronary artery disease involving upper [place] coronary artery of [place] heart without angina pectoris Take 2 tablets by mouth once daily. 180 tablet 3 01/25/2024 01/24/2025 Active Start: 05-15-2015 End: 03-01-2019 take 162 mg by mouth once daily Aspirin Active 162 MG PO DAILY March 01, 2019 4:38pm Comment on above: Take 2 tablets by [facility] once daily. Blood-Glucose Meter (ONETOUCH ULTRA2 METER) (20 sources) Start: 09-10-2021 Blood-Glucose Meter (ONETOUCH ULTRA2 METER) USE DIRECTED 1 Each 09/10/2021 Active Start: 09-10-2021 Blood-Glucose Meter (ONETOUCH ULTRA2 METER) USE DIRECTED 1 Each 0 09/10/2021 Active Comment on above: USE DIRECTED Blood-Glucose Meter,Continuous (FREESTYLE GARDEN[place] 3 READER) [facility] [place] (20 sources) Start: 11-09-2023 Blood-Glucose Meter,Continuous (FREESTYLE [place] 3 READER) [facility] [place] Indications: Type 2 diabetes mellitus without complication, without long-term current use of insulin (HCC) Use as directed 1 Each 11/09/2023 Active Start: 11-09-2023 Blood-Glucose Meter,Continuous (FREESTYLE [place] 3 READER) [facility] [place] Indications: Type 2 diabetes mellitus without complication, without long-term current use of insulin (HCC) Use as directed 1 Each 0 11/09/2023 Active Blood-Glucose Sensor (FREEST YLE GARDENIA 3 SENSOR) chana (20 sources) Start: 11-22-2024 Blood-Glucose Sensor (FREESTYLE [place]ARDEN[place] 3 SENSOR) chana Indications: Type 2 diabetes mellitus without complication, without long-term current use of insulin (HCC) Use as directed. 1 each 11/22/2024 Active Start: 11-09-2023 End: 11-22-2024 Blood-Glucose Sensor (FREEST YLE GARDENIA 3 SENSOR) chana Indications: Type 2 diabetes mellitus without complication, without long-term current use of insulin (HCC) Use as directed. 1 Each 11/09/2023 11/22/2024 Discontinued Start: 11-09-2023 Blood-Glucose Sensor (FREESTYLE [place] 3 SENSOR) chana Indications: Type 2 diabetes mellitus without complication, without long-term current use of insulin (HCC) Use as directed. 1 Each 11/09/2023 Active clopidogrel 75 mg oral tablet (20 sources) P2Y12 Platelet Inhibitor Start: 03-01-2019 End: 07-25-2024 take 1 tablet by mouth once daily clopidogrel (PLAVIX) 75 mg tablet Indications: S/P CABG x 2 Take 1 tablet by mouth once daily. 90 tablet 3 07/25/2024 Active Comment on above: Take 1 tablet by mouth once daily. 0.5 ml dulaglutide 1.5 mg/ml auto-injector (20 sources) GLP-1 Receptor Agonist Start: 11-12-2023 End: 10-27-2025 inject 0.75 mg by subcutaneous injection every week dulaglutide (TRULICITY) 0.75 mg/0.5 mL pen injector Indications: Type 2 diabetes mellitus without complication, without long-term current use of insulin ([facility]) Inject 0.75 mg subcutaneously one time a week. Inject dose once per week. Discard Pen After 2 mL 10/27/2024 10/27/2025 Active DULoxetine 30 mg delayed release oral capsule (20 sources) Serotonin and Norepinephrine Reuptake Inhibitor Start: 04-21-2024 End: 04-23-2025 take 1 capsule by mouth once daily DULoxetine (CYMBALTA) 30 mg capsule Indications: Other chronic pain Take 1 capsule by mouth once daily. 90 capsule 1 10/25/2024 04/23/2025 Active 30 actuat fluticasone furoate 0.2 mg/actuat / vilanterol 0.025 mg/actuat dry powder inhaler (5 sources) Corticosteroid, beta2-Adrenergic Agonist Start: 2024 Fluticasone Furoate-Vilanterol [Fluticasone Furoate 200 Mcg-Vilanterol 25 Mcg/Dose Inhalation Powder] (Fluticasone Furoate 200 Mcg-Vilanterol 25 ) 200-25 mcg/dose blister with device Active 1 NMA INHALATION DAILY January 03, 2025 12:00am 60 actuat formoterol fumarate 0.005 mg/actuat / mometasone furoate 0.2 mg/actuat metered dose inhaler (18 sources) Corticosteroid, beta2-Adrenergic Agonist Start: 12-27-2024 take 1 puff(s) by inhalation twice daily mometasone-formote rol (DULERA) 200-5 mcg/actuation inhaler Inhale 1 puff as instructed two times a day. 1 each 3 12/27/2024 Active Start: 05-26-2024 End: 2024 take 1 puff(s) by inhalation twice daily mometasone-formoterol (DULERA) 200-5 mcg/actuation inhaler Indications: Asthma-COPD overlap syndrome (HCC) Inhale 1 Puff as instructed two times a day. 1 Each 2 05/26/2024 2024 Discontinued gabapentin 300 mg oral capsule (20 sources) Anti-epileptic Agent Start: 01-17-2016 End: 01-03-2025 take 1 capsule by mouth once daily at bedtime gabapentin (NEURONTIN) 300 mg capsule Indications: Type 2 diabetes mellitus without complication, without long-term current use of insulin (HCC) Take 1 capsule by mouth daily at bedtime for 180 days. 30 capsule 5 06/20/2024 Active Comment on above: Take 1 capsule by mo ut daily at bedtime for 180 days. ibuprofen 200 mg oral capsule (20 sources) Nonsteroidal Anti-inflammatory Drug Ibuprofen 200 mg cap Take by mouth every 6 hours as needed for pain. Active Inhalational Spacing Device (1 source) Start: 02-05-2022 End: 02-05-2022 Inhalational Spacing Device 1 Device one time only for 1 dose. 1 Each 0 02/05/2022 02/05/2022 Active Comment on above: 1 Device one time on ly for 1 dose. lisinopril 40 mg oral tablet (20 sources) Angiotensin Converting Enzyme Inhibitor Start: 04-21-2024 End: 04-21-2025 take 1 tablet by mouth once daily lisinopril (ZESTRIL) 40 mg tablet Indications: Essential hypertension Take 1 tablet by mouth once daily. 90 tablet 3 04/21/2024 04/21/2025 Active Start: 10-03-2019 take 2 tablets by mo ut once daily Lisinopril 20 MG tablet Active 40 mg PO DAILY October 03, 2019 12:00am Start: 10-03-2019 End: 04-21-2024 take 1 tablet by mouth once daily lisinopril (ZESTRIL) 20 mg tablet Indications: Essential hypertension Take 1 tablet by mouth once daily. 30 tablet 5 04/04/2024 04/21/2024 Discontinued Comment on above: Take 1 tablet by kaelyn once daily. 24 hr metFORMIN hydrochloride 500 mg extended release oral tablet (20 sources) Biguanide Start: End: take 3 tablets by mouth once daily at breakfast metFORMIN ER (GLUCOPHAGE XR) 500 mg 24 hr tablet Indications: Type 2 diabetes mellitus without complication, without long-term current use of insulin (HCC) Take 3 tablets by mouth daily with breakfast. 90 tablet 11 09/28/2024 09/28/2025 Active Start: 10-03-2019 End: 09-28-2025 take 3 tablets by mouth once daily at breakfast metFORMIN ER (GLUCOPHAGE XR) 500 mg 24 hr tablet Indications: Type 2 diabetes mellitus without complication, without long-term current use of insulin (HCC) Take 3 tablets by mouth daily with breakfast. 90 tablet 11 09/28/2024 09/28/2025 Active Start: 02-28-2019 End: 10-03-2019 take 1 tablet by mouth twice daily Metformin 500 mg tablet extended release 24 hr Discontinued 500 mg PO TWICE A DAY 0 March 05, 2019 10:19am October 03, 2019 6:26pm Restart on thursday Start: 06-17-2017 End: 02-28-2019 take 1 tablet by mouth twice daily Metformin 1,000 MG tablet,ER kaden.retention 24 hr Discontinued 1000 mg PO TWICE A DAY June 17, 2017 1:00am February 28, 2019 7:24pm Comment on above: Take 3 tablets by [facility] daily with breakfast. 24 hr metoprolol succinate 50 mg extended release oral tablet (20 sources) beta-Adrenergic Jocelyn Start: 02-28-2019 End: 09-28-2024 take 1 tablet by mouth once daily metoprolol succinate ER (TOPROL XL) 50 mg 24 hr tablet Take 1 tablet by mouth once daily. 30 tablet 5 09/28/2024 Active Start: 05-15-2015 End: 02-28-2019 Metoprolol Tartrate 100 MG t ablet Discontinued 25 mg PO DAILY May 15, 2015 1:00am February 28, 2019 7:23pm Start: 05-15-2015 End: 02-28-2019 take 25 mg by mouth once daily Metoprolol Tartrate Dis continued 25 MG PO DAILY May 15, 2015 1:00am February 28, 2019 7:23pm Comment on above: Take 1 tablet by [facility] once daily. nitrofurantoin, macrocrystals 25 mg / nitrofurantoin, monohydrate 75 mg oral capsule (2 sources) Nitrofuran Antibacterial Start: End: take 1 capsule by mouth twice daily at mealtime nitrofurantoin monohydrate and macrocrystal (MACROBID) 100 mg capsule Indications: Dysuria Take 1 capsule by mouth two times a day with meals for 5 days. 10 capsule 0 08/18/2023 08/23/2023 Active Comment on above: Take 1 capsule by [facility] two times a day with meals for 5 days. nitroglycerin 0.4 mg sublingual tablet (20 sources) Nitrate Vasodilator Start: 015 End: nitroglycerin sublingual (NITROQUICK) 0.4 mg SL tablet Indications: Coronary artery disease involving upper [place] coronary artery of [place] heart without angina pectoris , ASHD (arteriosclerotic heart disease) Dissolve 1 tablet under the tongue as needed for chest pain. 25 tablet 1 08/18/2023 Active Start: 05-15-2015 Nitroglycerin Active 0.4 MG SL Q5M May 15, 2015 1:00am Comment on above: Dissolve 1 tablet un rafy the tongue as needed for chest pain. perflutren lipid microspheres 1.3 mL in NaCl (PF) 0.9% 10 mL injection (DEFINITY) (4 sources) Start: 1 End: 2 perflutren lipid microspheres 1.3 mL in NaCl (PF) 0.9% 10 mL injection (DEFINITY) rosuvastatin calcium 40 mg oral tablet (20 sources) HMG-CoA Reductase Inhibitor Start: 4 End: 5 take 1 tablet by mouth once daily rosuvastatin (CRESTOR) 40 mg tablet Indications: Hyperlipidemia, mixed Take 1 tablet by mouth once daily. 90 tablet 3 01/25/2024 01/24/2025 Active Start: 05-06-2023 take 2 tablets by mo ut once daily Rosuvastatin 20 mg tablet Active 40 mg PO DAILY May 06, 2023 12:00am Start: 08-26-2021 End: 05-07-2024 take 1 tablet by mouth once daily rosuvastatin (CRESTOR) 20 mg tablet Indications: Hyperlipidemia, mixed Take 1 tablet by mouth once daily. 30 tablet 5 11/09/2023 01/25/2024 Discontinued Start: 10-04-2019 End: 05-06-2023 take 2 tablets by mouth once daily Rosuvastatin 10 mg tablet Discontinued 20 mg PO DAILY October 04, 2019 9:14am May 06, 2023 5:18pm Start: 10-04-2019 End: 05-06-2023 take 20 mg by mouth once daily Rosuvastatin Discontinu ed 20 MG PO DAILY October 04, 2019 9:14am May 06, 2023 5:18pm Start: 03-01-2019 End: 10-04-2019 take 1 tablet by mouth once daily Rosuvastatin 10 MG tablet Discontinued 10 mg PO DAILY October 03, 2019 6:25pm October 04, 2019 9:14am Comment on above: Take 1 tablet by kaelyn once daily. 125 ml sodium chloride 9 mg/ml prefilled syringe (4 sources) Start: 12-17-2020 End: 03-18-2022 sodium chloride 0.9 % (flush) 10 mL (BD POSIFLUSH) vitamin b12 1 mg extended release oral tablet (10 sources) Vitamin B12 Start: 11-01-2024 End: 11-01-2025 take 1 tablet by mouth once daily Cyanocobalamin 1,000 mcg TbER Indications: Vitamin B12 deficiency Take 1 tablet by mouth once daily. 30 tablet 11 11/01/2024 11/01/2025 Active Completed/Discontinued Medications Medication Drug Class(es) Dates Sig (Normalized) Sig (Original) acetaminophen 325 mg / HYDROcodone bitartrate 5 mg oral tablet (2 sources) Opioid Agonist Start: 12-22-2024 End: 01-03-2025 Hydrocodone-Acetam inophen 5-325 mg tablet Discontinued 1 {tbl} PO EVERY 6 HOURS NEEDED as needed for Pain 10 December 22, 2024 January 03, 2025 6:19pm atorvastatin 80 mg oral tablet (4 sources) HMG-CoA Reductase Inhibitor Start: 05-15-2015 End: 03-01-2019 take 1 tablet by mouth at bedtime Atorvastatin 80 MG tablet Discontinued 80 mg PO AT BEDTIME May 15, 2015 1:00am March 01, 2019 4:26pm diclofenac sodium 0.01 mg/mg topical gel (7 sources) Nonsteroidal Anti-inflammatory Drug Start: 10-31-2022 End: 01-29-2023 diclofenac (VOLTAREN ARTHRITIS PAIN) 1 % topical gel Indications: Chronic pain of left knee Apply 2 g to affected area four times daily. 200 g 2 10/31/2022 01/29/2023 Comment on above: Apply 2 g to affecte d area four times daily. doxycycline hyclate 100 mg oral capsule (2 sources) Tetracycline-class Drug Start: 10-27-2024 End: 11-06-2024 take 1 capsule by mouth twice daily doxycycline hyclate (VIBRAMYCIN) 100 mg capsule Indications: Tobacco use disorder Take 1 capsule by mouth two times a day for 10 days. 20 capsule 10/27/2024 11/06/2024 furosemide 20 mg oral tablet (4 sources) Loop Diuretic Start: 01-17-2016 End: 02-28-2019 take 1 tablet by mouth once daily Furosemide 20 MG tablet Discontinued 20 mg PO DAILY January 17, 2016 12:00am February 28, 2019 7:25pm hydrALAZINE hydrochloride 10 mg oral tablet (20 sources) Arteriolar Vasodilator Start: 05-01-2023 End: 04-04-2025 take 0.5 tablet by mouth twice daily hydrALAZINE (APRESOLINE) 25 mg tablet Indications: Primary hypertension Take 0.5 tablets by mouth two times a day. 90 tablet 3 04/04/2024 04/21/2024 Discontinued (Clinical Decision) Start: 10-05-2019 End: 01-03-2025 take 1 tablet by mouth twice daily Hydralazine 10 MG tablet Discontinued 10 mg PO TWICE A DAY May 06, 2023 12:00am January 03, 2025 6:19pm Comment on above: Take 1 tablet by kaelyn twice daily. Take 1 tablet by kaelyn two times a day. Take 0.5 tablets by mouth two times a day. levoFLOXacin 750 mg oral tablet (2 sources) Quinolone Antimicrobial Start: 12-23-19 End: 01-04-20 take 1 tablet by mouth once daily Levofloxacin 750 mg tablet Discontinued 750 mg PO DAILY December 22, 2024 12:00am January 03, 2025 6:20pm linagliptin 5 mg oral tablet (20 sources) Dipeptidyl Peptidase 4 Inhibitor Start: 11-04-19 End: 11-11-19 take 1 tablet by mouth once daily linaGLIPtin (TRADJENTA) 5 mg tab Indications: type 2 diabetes mellitus Take 1 tablet by mouth once daily. 30 tablet 5 11/02/2023 11/11/2023 Discontinued Comment on above: Take 1 tablet by kaelyn once daily. ondansetron 4 mg disintegrating oral tablet (2 sources) Serotonin-3 Receptor Antagonist Start: 12-23-19 End: 01-04-20 take 1 tablet by mouth every eight hours as needed for nausea Ondansetron 4 mg tablet,disintegrating Discontinued 4 mg PO EVERY 8 HOURS NEEDED as needed for Nausea December 22, 2024 12:00am January 03, 2025 6:21pm pantoprazole 40 mg delayed release oral tablet (3 sources) Proton Pump Inhibitor Start: 05-07-20 End: 01-04-20 take 1 tablet by mouth once daily Pantoprazole 40 mg Tablet,Delayed Release (Dr/Ec) Discontinued 40 mg PO DAILY May 07, 2023 12:00am January 03, 2025 6:21pm polyethylene glycol 3350 [id number] mg / potassium chloride 2970 mg / sodium bicarbonate 6740 mg / sodium chloride 5860 mg / sodium sulfate 26032 mg powder for oral solution (1 source) Osmotic Laxative Start: 10-01-19 End: 10-01-19 peg 3350-Electrolytes (GOLYTELY) 236-22.74-6.74 -5.86 gram suspension Take 4,000 mL by mouth one time only for 1 dose. 1 Each 0 09/30/2022 09/30/2022 Comment on above: Take 4,000 mL by kaelyn th one time only for 1 dose. semaglutide (OZEMPIC) 0.25 mg or 0.5 mg (2 mg/3 mL) pen (3 sources) Start: 11-11-19 End: 11-12-19 semaglutide (OZEMPIC) 0.25 mg or 0.5 mg (2 mg/3 mL) pen Indications: Coronary artery disease involving upper [place] coronary artery of [place] heart without angina pectoris , Type 2 diabetes mellitus without complication, without long-term current use of insulin (HCC) Inject 0.25 mg subcutaneously one time a week. 3 mL 5 11/11/2023 11/12/2023 Discontinued Start: 11-11-2023 End: 11-10-2024 semaglutide (OZEMPIC) 0.25 m g or 0.5 mg (2 mg/3 mL) pen Indications: Coronary artery disease involving upper [place] coronary artery of [place] heart without angina pectoris , Type 2 diabetes mellitus without complication, without long-term current use of insulin (HCC) Inject 0.25 mg subcutaneously one time a week. 3 mL 5 11/11/2023 11/10/2024 Active Problems Active Problems Problem Classification Problem Date Documented Da te Episodic/Chronic Asthma (2 sources) Asthma-chronic obstructive pulmonary disease overlap syndrome; Translations: [Asthma-COPD overlap syndrome (HCC)] 05-26-2024 Chronic Cardiac dysrhythmias (20 sources) Nonsustained ventricular tachycardia ; Translations: [Ventricular tachycardia] Onset: 2 Chronic Chronic obstructive pulmonary disease and bronchiectasis (4 sources) Pulmonary emphysema; Translations: [Emphysema, unspecified] Onset: 4 04-18-2024 Chronic Coronary atherosclerosis and other heart disease (20 sources) Coronary atherosclerosis; Translations: [Atherosclerotic heart disease of [place] coronary artery without angina pectoris] Onset: 5 Chronic Diabetes mellitus without complication (20 sources) Type 2 diabetes mellitus without complication; Translations: [Type 2 diabetes mellitus without complications] Onset: 6 04-06-2018 Chronic Disorders of lipid metabolism (20 sources) Hyperlipidemia; Translations: [Other hyperlipidemia] Onset: 1 Chronic Disorders of teeth and jaw (2 sources) Dental caries; Translations: [Dental caries, unspecified] Onset: 5 10-27-2024 Episodic Esophageal disorders (20 sources) Gastroesophageal reflux disease; Translations: [Gastro-esophageal reflux disease without esophagitis] Onset: 3 Chronic Essential hypertension (20 sources) Essential (primary) hypertension; Translations: [Essential hypertension] Onset: 5 Resolved: 9 Chronic Gastrointestinal hemorrhage (1 source) Rectal hemorrhage; Translations: [Hemorrhage of anus and rectum] Episodic Malaise and fatigue (2 sources) Weakness; Translations: [Asthenia] Onset: 5 01-03-2025 Episodic Nausea and vomiting (2 sources) Nausea; Translations: [Nausea] 01-03-2025 Episodic Neoplasms of unspecified nature or uncertain behavior (4 sources) Neoplasm of skin; Translations: [Neoplasm of unspecified behavior of bone, soft tissue, and skin] Onset: 5 10-27-2024 Episodic Nutritional deficiencies (1 source) Cobalamin deficiency; Translations: [Deficiency of other specified B group vitamins] 10-31-2024 Episodic Occlusion or stenosis of precerebral arteries (20 sources) Bilateral stenosis of carotid arteries; Translations: [Occlusion and stenosis of bilateral carotid arteries] Onset: 2 Chronic Osteoarthritis (1 source) Osteoarthritis of knee; Translations: [Osteoarthritis of knee, unspecified] Chronic Other circulatory disease (4 sources) Disorder of aorta; Translations: [Other specified disorders of arteries and arterioles] 01-29-2024 Chronic Other circulatory disease (2 sources) Other specified disorders of arteries and arterioles; Translations: [Enlarged aorta] Onset: 4 Chronic Other endocrine disorders (20 sources) Adrenal mass; Translations: [Other specified disorders of adrenal gland] Onset: 6 06-17-2017 Chronic Other gastrointestinal disorders (1 source) Disorder of abdominal wall; Translations: [Intra-abdominal and pelvic swelling, mass and lump, unspecified site] Episodic Other hematologic conditions (6 sources) Erythrocytosis; Translations: [Secondary polycythemia] 05-06-2023 Episodic Other hematologic conditions (2 sources) Secondary polycythemia; Translations: [Polycythemia, secondary] 05-06-2023 Episodic Other liver diseases (2 sources) Elevated liver enzymes level; Translations: [Abnormal levels of other serum enzymes] 08-27-2023 Episodic Other lower respiratory disease (4 sources) Dyspnea on exertion; Translations: [Other forms of dyspnea] 03-04-2019 Episodic Other lower respiratory disease (2 sources) Multiple nodules of lung; Translations: [Other nonspecific abnormal finding of lung field] 04-18-2024 Episodic Other nervous system disorders (2 sources) Chronic pain; Translations: [Other chronic pain] 04-21-2024 Chronic Other non-traumatic joint disorders (2 sources) Pain in left knee; Translations: [Pain in joint, lower leg] Episodic Other non-traumatic joint disorders (3 sources) Pain in right shoulder; Translations: [Pain in joint, shoulder region] 11-09-2023 Episodic Other non-traumatic joint disorders (1 source) Chronic pain of right upper limb; Translations: [Pain in right shoulder] 11-09-2023 Episodic Other nutritional; endocrine; and metabolic disorders (20 sources) Morbid obesity; Translations: [Morbid (severe) obesity due to excess calories] Onset: 6 09-18-2015 Chronic Other nutritional; endocrine; and metabolic disorders (20 sources) Body mass index 40+ - severely obese; Translations: [Morbid (severe) obesity due to excess calories] Onset: 8 Resolved: 4 04-05-2018 Chronic Other nutritional; endocrine; and metabolic disorders (1 source) Morbid (severe) obesity due to excess calories; Translations: [Morbid obesity (HCC)] Onset: 6 Chronic Other screening for suspected conditions (not mental disorders or infectious disease) (14 sources) Patient encounter status; Translations: [Encounter for other screening for malignant neoplasm of breast] Episodic Other skin disorders (1 source) Finding of neck region; Translations: [Localized swelling, mass and lump, trunk] Episodic Other skin disorders (2 sources) Sebaceous cyst of skin; Translations: [Sebaceous cyst] 11-10-2024 Episodic Other skin disorders (1 source) Sebaceous cyst; Translations: [Sebaceous cyst] Onset: 5 Episodic Residual codes; unclassified (1 source) Obstructive sleep apnea syndrome; Translations: [Obstructive sleep apnea (adult) (pediatric)] 08-18-2023 Chronic Residual codes; unclassified (1 source) Tobacco use and exposure - finding; Translations: [Tobacco use] 08-18-2023 Episodic Residual codes; unclassified (1 source) Menopause present; Translations: [Asymptomatic menopausal state] 04-21-2024 Episodic Spondylosis; intervertebral disc disorders; other back problems (5 sources) Degeneration of lumbar intervertebral disc; Translations: [Other intervertebral disc degeneration, lumbar region] Onset: 4 11-09-2023 Chronic Substance-related disorders (20 sources) Tobacco user; Translations: [Nicotine dependence, unspecified, uncomplicated] Onset: 5 Chronic Unclassified (1 source) Unknown / UNK(Unknown) Onset: 6 Unclassified (1 source) Degeneration of intervertebral disc of lumbar region with discogenic back pain; Translations: [Degeneration of intervertebral disc of lumbar region with discogenic back pain] Onset: 5 Unclassified (1 source) NSVT (nonsustained ventricular tachycardia) (HCC); Translations: [NSVT (nonsustained ventricular tachycardia) (HCC)] Onset: 2 Urinary tract infections (3 sources) Acute pyelonephritis; Translations: [Acute pyelonephritis] 12-22-2024 Episodic Past or Other Problems Problem Classification Problem Date Documented Date Episodic/Chronic Abdominal pain (20 sources) Abdominal discomfort; Translations: [Right upper quadrant pain] Onset: 5 Resolved: 5 Episodic Cardiac dysrhythmias (20 sources) Palpitations; Translations: [Palpitations] Onset: 5 Episodic Coronary atherosclerosis and other heart disease (7 sources) Stented coronary artery; Translations: [Presence of coronary angioplasty implant and graft] Onset: 6 10-03-2019 Episodic Comment on above: LVEF: by LV gram 65 %; 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 Diabetes mellitus without complication (20 sources) Hyperglycemia; Translations: [Hyperglycemia, unspecified] Resolved: 6 11-08-2015 Episodic Fever of unknown origin (20 sources) Fever; Translations: [Fever, unspecified] Onset: 5 Resolved: 5 07-08-2021 Episodic Genitourinary symptoms and ill-defined conditions (20 sources) Leonel hematuria; Translations: [Gross hematuria] Onset: 6 09-18-2015 Episodic Nonspecific chest pain (20 sources) Chest pain; Translations: [Chest pain, unspecified] Onset: 5 Resolved: 5 05-06-2023 Episodic Other and unspecified benign neoplasm (20 sources) History of polyp of colon; Translations: [Personal history of colonic polyps] Onset: 3 Episodic Other gastrointestinal disorders (20 sources) Diarrhea; Translations: [Diarrhea, unspecified] Resolved: 7 01-19-2017 Episodic Other lower respiratory disease (20 sources) Dyspnea; Translations: [Shortness of breath] Onset: 5 Resolved: 4 Episodic Other lower respiratory disease (1 source) Other nonspecific abnormal finding of lung field; Translations: [Lung nodules] Onset: 4 Episodic Other nutritional; endocrine; and metabolic disorders (20 sources) Obesity; Translations: [Obesity, unspecified] Onset: 5 Resolved: 7 01-19-2017 Chronic Other skin disorders (20 sources) Skin tag; Translations: [Other hypertrophic disorders of the skin] Onset: 5 Resolved: 7 01-19-2017 Episodic Other upper respiratory disease (20 sources) Susanne's edema; Translations: [Polyp of vocal cord and larynx] Onset: 8 01-28-2018 Episodic Other upper respiratory disease (20 sources) Polyp of vocal cord ; Translations: [Polyp of vocal cord and larynx] Onset: 8 02-05-2018 Episodic Other upper respiratory disease (20 sources) Hoarse; Translations: [Dysphonia] Onset: 8 Resolved: 4 02-05-2018 Episodic Residual codes; unclassified (4 sources) History of cardiac catheterization; Translations: [Other specified postprocedural states] Onset: 0 10-10-2019 Episodic Comment on above: LVEF: by LV gram 65 %. Elevated Left Ventricular End Diastolic Pressure. Single vessel CAD of the LADNon obstructive coronary arteries. Widely patent proximal and mid RCA stents; distal RCA at transition to PDA with <50% stenosis; appears much better today than at end of PCI in 02/2019.Would recommend holding off on PCI of distal RCA as it is at a significant hinge point from previous SVG attachment(which is known previously to be occluded), and may induce strut fracture. ORTIZ to LAD not re-imaged as it was patent in 02/2019. Pt unable to take diuretics due to urinary incontinence for elevated LVEDP. Per C done 10/05/19 per [facility] @ [facility] Residual codes; unclassified (20 sources) Tobacco user; Translations: [Tobacco use] Onset: 5 Resolved: 7 09-14-2023 Episodic Unclassified (1 source) Patient encounter status 10-11-2024 Results Test Name Value Interpretation Reference Range Facility Absolute lymphocyte countOrd ered By: Clem Madden on 01-03-2025 Lymphocytes Auto (Unsp spec) [#/Vol] 4.07 10*3/uL 0.83-4.51 [facility] Absolute neutrophil countOrd ered By: Clem Madden on 01-03-2025 Neutrophils (Bld) [#/Vol] 6.1 10*3/uL 2.0-7.7 [facility] Activated partial thrombopla stin time (aPTT) in platelet poor plasma by coagulation aOrdered By: Clem Madden on 01-03-2025 aPTT Coag (PPP) [Time] 26.3 s 24.1-36.2 [facility] Anion gap in Serum or Plasma Ordered By: Clem Madden on 01-03-2025 Anion gap [Moles/Vol] 13 mmol/L 5-15 [facility] Automated lymphocyte count a s percentage of total leukocytesOrdered By: Clem Madden on 01-03-2025 Lymphocytes/100 WBC Auto (Unsp spec) 35.6 % 19-41 [facility] BUN/creatinine ratioOrdered By: Clem Madden on 01-03-2025 Urea nitrogen/Creatinine [Mass ratio] 14.5 mg/mg 10-20 [facility] Basophil percentageOrdered B y: Clem Madden on 01-03-2025 Basophils/100 WBC (Bld) 1.2 % High 0-1 [facility] Bilirubin Test strip Ql (U)O rdered By: Clem Madden on 01-03-2025 Bilirubin Ql (U) 1 mg/dL High Negative [facility] Comment on above: COLOR OF URINE MAY A FFECT DIPSTICK RESULTS. Bilirubin, totalOrdered By: Clem Madden on 01-03-2025 Bilirubin [Mass/Vol] 0.50 mg/dL 0.00-1.30 [facility] Carbon dioxide, total [Moles /volume] in Central venous bloodOrdered By: Clem Madden on 01-03-2025 CO2 [Moles/Vol] 21.6 mmol/L 21.0-32.0 [facility] Chloride assayOrdered By: Edmundo Madden on 01-03-2025 Chloride [Moles/Vol] 100 mmol/L 98-108 [facility] Eosinophil percentageOrdered By: Clem Madden on 01-03-2025 Eosinophils/100 WBC (Bld) 1.3 % 0-5 [facility] Erythrocyte distribution wid th ratioOrdered By: Clem Madden on 01-03-2025 Erythrocyte distribution width (RBC) [Ratio] 13.3 % 11.6-14.6 [facility] Erythrocyte distribution wid th standard deviationOrdered By: Clem Madden on 01-03-2025 Erythrocyte distribution width (RBC) [Ratio] 45.5 fl High 35.1-43.9 [facility] Glomerular filtration rate ( GFR) estimation/1.73 sq m using serum, plasma, or whole bOrdered By: Clem Madden on 01-03-2025 GFR/1.73 sq M.predicted among non-blacks MDRD (S/P/Bld) [Vol rate/Area] 42 mL/min/{1.73_m2} Low >60 [facility] Comment on above: mL/min/1.73m2 CKD-EP I Creatinine Equation (2020) Hematocrit Auto (Bld) [Volum e fraction]Ordered By: Clem Madden on 01-03-2025 Hematocrit (Bld) [Volume fraction] 47.1 % High 37-47 [facility] Hemoglobin measurementOrdere d By: Clem Madden on 01-03-2025 Hemoglobin (Bld) [Mass/Vol] 15.6 g/dL High 12.0-15.0 [facility] Immature granulocytes/100 WB C Auto (Bld)Ordered By: Clem Madden on 01-03-2025 Immature granulocytes/100 WBC (Bld) 0.400 % 0.0-0.9 [facility] Comment on above: IG% - Immature Granu locytes (promyelocytes, myelocytes and metamyelocytes) > 1% indicates that a LEFT SHIFT is Present. International normalized rat io (INR) calculationOrdered By: Clem Madden on 01-03-2025 INR Coag (Bld) [Relative time] 1.1 {INR} [facility] Ketones Test strip Ql (U)Ord ered By: Clem Madden on 01-03-2025 Ketones Ql (U) Negative Negative [facility] Laboratory - Chemistry and C hemistry - challengeOrdered By: Clem Madden on 01-03-2025 AST [Catalytic activity/Vol] 43 U/L High <32 [facility] Lactic acid measurementOrder ed By: Clem Madden on 01-03-2025 Lactate [Moles/Vol] 1.7 mmol/L 0.0-2.0 [facility] MCV (mean corpuscular volume ) determinationOrdered By: Clem Madden on 01-03-2025 MCV (RBC) [Entitic vol] 92.5 fL 81-99 [facility] Mean corpuscular hemoglobin (MCH) determinationOrdered By: Clem Madden on 01-03-2025 MCH (RBC) [Entitic mass] 30.6 pg 27.0-32.0 [facility] Mean corpuscular hemoglobin concentration (MCHC) determinationOrdered By: Clem Madden on 01-03-2025 MCHC (RBC) [Mass/Vol] 33.1 g/dL 32-36 [facility] Mean platelet volume determi nationOrdered By: Clem Madden on 01-03-2025 Platelet mean volume (Bld) [Entitic vol] 9.3 fL 6.2-12.0 [facility] Microscopic analysis of urin e for red blood cells (RBC)Ordered By: Clem Madden on 01-03-2025 Microscopic analysis of urine for red blood cells (RBC) 0-5 SEEN /hpf 0-5 [facility] Monocyte percentageOrdered B y: Clem Madden on 01-03-2025 Monocytes/100 WBC (Bld) 7.7 % 0-10 [facility] Mucus LM Ql (Urine sed)Order ed By: Clem Madden on 01-03-2025 Mucus Ql (Urine sed) 0 SEEN /hpf [facility] Neutrophil percentageOrdered By: Clem Madden on 01-03-2025 Neutrophils/100 WBC (Bld) 53.8 % 47-70 [facility] Nitrite Test strip Ql (U)Ord ered By: Clem Madden on 01-03-2025 Nitrite Ql (U) Negative Negative [facility] Nucleated red blood cell per centageOrdered By: Clem Madden on 01-03-2025 Nucleated RBC/100 WBC (Bld) [Ratio] 0 % 0-5 [facility] Platelet countOrdered By: Edmundo Madden on 01-03-2025 Platelets (Bld) [#/Vol] 459 10*3/uL High 150-450 [facility] Potassium measurement (mass/ volume)Ordered By: Clem Madden on 01-03-2025 Potassium (Unsp spec) [Mass/Vol] 4.9 mmol/L 3.3-5.1 [facility] Protein Test strip Ql (U)Ord ered By: Clem Madden on 01-03-2025 Protein Ql (U) 30 mg/dl High Negative [facility] Prothrombin timeOrdered By: Clem Madden on 01-03-2025 PT Coag (PPP) [Time] 14.6 s 11.7-14.9 [facility] RBC Auto (Bld) [#/Vol]Ordere d By: Clem Madden on 01-03-2025 RBC (Bld) [#/Vol] 5.09 10*6/uL 4.2-5.4 [facility] Serum creatinine measurement (mass/volume)Ordered By: Clem Madden on 01-03-2025 Creatinine [Mass/Vol] 1.39 mg/dL High 0.70-1.20 [facility] Serum globulin measurementOr dered By: Clem Madden on 01-03-2025 Globulin (S) [Mass/Vol] 3.8 g/dL 2.2-4.2 [facility] Serum glucose measurement (m ass/volume)Ordered By: Clem Madden on 01-03-2025 Glucose [Mass/Vol] 133 mg/dL High 70-99 [facility] Serum or plasma alanine alvarez otransferase (ALT) measurementOrdered By: Clem Madden on 01-03-2025 ALT [Catalytic activity/Vol] 29 U/L <35 [facility] Serum or plasma albumin lexie urement (mass/volume)Ordered By: Clem Madden on 01-03-2025 Albumin [Mass/Vol] 3.7 g/dL 3.4-4.8 [facility] Serum or plasma albumin/glob ulin mass ratioOrdered By: Clem Madden on 01-03-2025 Albumin/Globulin [Mass ratio] 1.0 {ratio} 0.9-2.4 [facility] Serum or plasma alkaline jeronimo sphatase measurementOrdered By: Clem Madden on 01-03-2025 ALP [Catalytic activity/Vol] 57 U/L 35-104 [facility] Serum or plasma calcium lexie urement (mass/volume)Ordered By: Clem Madden on 01-03-2025 Calcium [Mass/Vol] 9.9 mg/dL 7.6-11.0 [facility] Serum or plasma urea nitroge n measurement (mass/volume)Ordered By: Clem Madden on 01-03-2025 Urea nitrogen [Mass/Vol] 20 mg/dL High 4-19 [facility] Sodium levelOrdered By: Shawn Madden on 01-03-2025 Sodium [Moles/Vol] 135 mmol/L 133-145 [facility] Squamous epithelial cells de tection in urine sediment by light microscopyOrdered By: Clem Madden on 01-03-2025 Epithelial cells.squamous LM Ql (Urine sed) 5-10 SEEN /hpf 5-10 [facility] Total proteinOrdered By: Mary Madden on 01-03-2025 Protein [Mass/Vol] 7.6 g/dL 5.9-8.4 [facility] Urine clarityOrdered By: Mary Madden on 01-03-2025 Clarity (U) Sl. Cloudy Clear [facility] Urine color determinationOrd ered By: Clem Madden on 01-03-2025 Color (U) Yellow Yellow [facility] Urine glucose detectionOrder ed By: Clem Madden on 01-03-2025 Glucose Ql (U) Normal mg/dl Normal [facility] Urine leukocyte esterase det ection by dipstickOrdered By: Clem Madden on 01-03-2025 Leukocyte esterase Test strip Ql (U) 25 /ul High Negative [facility] Urine pHOrdered By: Clem small on 01-03-2025 pH (U) 6.0 [pH] 5.0 - 8.0 [facility] Urine sediment bacteria coun t by microscopy (number/high power field)Ordered By: Clem Madden on 01-03-2025 Bacteria LM.HPF (Urine sed) [#/Area] 0 /[HPF] None Seen [facility] Urine specific gravity measu rementOrdered By: Clem Madden on 01-03-2025 Specific gravity (U) [Rel density] 1.020 1.002-1.03 0 [facility] Urine urobilinogen measureme ntOrdered By: Clme Madden on 01-03-2025 Urobilinogen Ql (U) 1 mg/dl High Normal [facility] White blood cell (WBC) count Ordered By: Clem Madden on 01-03-2025 WBC (Bld) [#/Vol] 11.4 10*3/uL High 4.4-11.0 [facility] White blood cell countOrdere d By: Clem Madden on 01-03-2025 White blood cell count 10-25 SEEN /hpf 0-5 [facility] Culture, Blood (WB)on 2024 CUB Blood cultures x2, f rom two different sites ANAEROBIC AND AEROBIC GRAM STAIN =[facility] [employer] Culture, Blood (WB) RESULTS CALLED TO OLEGARIO Garner RN 12/23/24 0837 Rhonda Roberto. REPORT READ BACK BY SAME. Culture, Blood (WB) Copy of report sent to Infection Control Printer MS#[id number] 12/24/24 0718 PRUDENCIO. Staphylococcus hominis hominis Amount Growth Growth Staphylococcus hominis hominis: REACTION cefOXitin Susc Islt Doxycycline Islt ANA MARÍA 4 S Clindamycin Islt ANA MARÍA >=4 R Clindamycin.induced Susc Islt NEG Erythromycin Islt ANA MARÍA >=8 R Gentamicin Islt ANA MARÍA <=0.5 S Linezolid Islt ANA MARÍA 2 S Oxacillin Susc Islt R Tetracycline Islt ANA MARÍA >=16 R TMP SMX Islt ANA MARÍA <=10 S Vancomycin Islt ANA MARÍA <=0.5 S Normal [facility] Comment on above: Performed By: #### M 100.636, M200.1000 #### [facility] [address] [place], [place], [address] BC GPC IDon 12-23-2024 BC GPC ID Enterococcus sp. Not Detected Listeria spp Not Detected NAAT METHOD Testing was performed using nucleic acid amplification Staphylococcus sp. A DETECTED A Streptococcus spp. Not Detected mecA Testing not performed Rodrigo/vanB Not Detected Coag Negative Staph Normal [facility] Comment on above: Performed By: #### M 100.636, M200.1000 #### [facility] [address] [place], [place], [address] Urine Cultureon 12-23-2024 URC Escherichia coli Hooper Count 50,000-80,000 Escherichia coli: REACTION Ampicillin Islt ANA MARÍA >=32 Ampicillin+Sulbac Islt ANA MARÍA 16 I Cefepime Islt ANA MARÍA <=0.12 S cefTRIAXone Islt ANA MARÍA <=0.25 S Ciprofloxacin Islt ANA MARÍA <=0.06 S B-Lactamase Extended Susc Islt NEG Gentamicin Islt ANA MARAÍ <=1 S levoFLOXacin Islt ANA MARÍA <=0.12 S Meropenem Islt ANAM ARÍA <=0.25 S Nitrofurantoin Islt ANA MARÍA <=16 S Pip+Tazo Islt ANA MARÍA <=4 S TMP SMX Islt ANA MARÍA <=20 S Normal [facility] Comment on above: Performed By: #### L 400.0001, M100.2200 #### [facility] [address] [place], [place], [address] Abdomen/Pelvis W IV Cont ONL Yon 12-21-2024 Abdomen/Pelvis W IV Cont ONLY [facility] [address] [place] [address] Abdomen/Pelvis W IV Cont ONLY MR#: [id number] Acct: [id number] Name: CAROL NOLAN Rep #: [id number] : 1960 F 64 From: Ki Henriquez MD PCP: Dr. Mac Olvera MD Status: [facility] ER Study: Abdomen/Pelvis W IV Cont ONLY Date of Exam: Exam# [id number] Ordering Dr: Angel Carter DO PROCEDURE: ABDOMEN/PELVIS W IV CONT ONLY 12/21/2024 REASON FOR EXAM: ABDOMINAL PAIN TECHNIQUE: Abdomen and pelvis CT with intravenous contrast. Coronal and Sagittal reconstruction series were provided. PATIENT PREPARATION: Per protocol One or more dose reduction techniques were used (e.g., Automated exposure control, adjustment of the mA and/or kV according to patient size, use of iterative reconstruction technique. RADIATION DOSE SUMMARY: CTDlvol: 3.32+ 23.76 mGy DLP: 1307.59 mGycm COMPARISON: None. FINDINGS: Periumbilical fat containing hernia. Degenerative changes of the spine. Moderate atherosclerosis. Normal caliber abdominal aorta. Surgical clips within the pelvis. No suspicious lymphadenopathy. Hypodense liver suggestive of steatosis. Prior cholecystectomy. The pancreas, spleen, and adrenals are unremarkable. Bilateral renal subcentimeter hypodense lesions that are too small to characterize. Left kidney upper pole simple cyst. No hydroureteronephrosis. Mild nonspecific right perinephric stranding. The urinary bladder is decompressed limiting assessment. The uterus is unremarkable. Normal caliber large and small bowel. Scattered colonic no significant surrounding inflammatory changes. CT/Abdomen/Pelvis W IV Cont ONLY IMPRESSION: Mild nonspecific right perinephric stranding. Correlate with urinalysis to exclude infection. Colonic diverticulosis. Reading Location: [id number] CC: Dr. Angel Carter DO; Dr. Mac Olvera MD Enterprise Data Architect: Signed Normal [facility] Absolute lymphocyte countOrd ered By: Angel Carter on 12-21-2024 Lymphocytes Auto (Unsp spec) [#/Vol] 2.48 10*3/uL 0.83-4.51 [facility] Absolute neutrophil countOrd ered By: Angel Carter on 12-21-2024 Neutrophils (Bld) [#/Vol] 11.8 10*3/uL High 2.0-7.7 [facility] Activated partial thrombopla stin time (aPTT) in platelet poor plasma by coagulation aOrdered By: Angel Cartre on 12-21-2024 aPTT Coag (PPP) [Time] 30.3 s 24.1-36.2 [facility] Anion gap in Serum or Plasma Ordered By: Angel Crater on 12-21-2024 Anion gap [Moles/Vol] 15 mmol/L 5-15 [facility] Automated lymphocyte count a s percentage of total leukocytesOrdered By: Angel Carter on 12-21-2024 Lymphocytes/100 WBC Auto (Unsp spec) 15.6 % Low 19-41 [facility] BUN/creatinine ratioOrdered By: Angel Carter on 12-21-2024 Urea nitrogen/Creatinine [Mass ratio] 12.8 mg/mg 10-20 [facility] Basophil percentageOrdered B y: Angel Carter on 12-21-2024 Basophils/100 WBC (Bld) 0.4 % 0-1 [facility] Bilirubin Test strip Ql (U)O rdered By: Angel Carter on 12-21-2024 Bilirubin Ql (U) 1 mg/dL High Negative [facility] Comment on above: COLOR OF URINE MAY A FFECT DIPSTICK RESULTS. Bilirubin, totalOrdered By: Angel Carter on 12-21-2024 Bilirubin [Mass/Vol] 1.04 mg/dL 0.00-1.30 [facility] Blood cultureOrdered By: Chiara Carter on 12-21-2024 Bacteria identified Cx Nom (Bld) Negative Abnormal [facility] Bacteria identified Cx Nom (Bld) Staphylococcus hominis hominis Abnormal [facility] CBC W/Diff, Automatedon 06- Absolute Lymph 2.48 X10 3/uL Normal 0.83-4.51 [facility] Comment on above: Performed By: #### L 300.4310, L503.6005, L300.3900, L500.4050, L100.0100 #### [facility] [address] [place], [address] Absolute Neut 11.8 X10 3/uL High 2.0-7.7 [facility] Comment on above: Performed By: #### L 300.4310, L503.6005, L300.3900, L500.4050, L100.0100 #### [facility] [address] [place], [address] Basophils/100 WBC (Bld) 0.4 % Normal 0-1 [facility] Comment on above: Performed By: #### L 300.4310, L503.6005, L300.3900, L500.4050, L100.0100 #### [facility] [address] [place], [place], [address] Eosinophils/100 WBC (Bld) 0.1 % Normal 0-5 [facility] Comment on above: Performed By: #### L 300.4310, L503.6005, L300.3900, L500.4050, L100.0100 #### [facility] [address] [place], [address] Erythrocyte distribution width (RBC) [Ratio] 13.0 % Normal 11.6-14.6 [facility] Comment on above: Performed By: #### L 300.4310, L503.6005, L300.3900, L500.4050, L100.0100 #### [facility] [address] [place], [address] Hematocrit (Bld) [Volume fraction] 41.7 % Normal 37-47 [facility] Comment on above: Performed By: #### L 300.4310, L503.6005, L300.3900, L500.4050, L100.0100 #### [facility] [address] [place], [address] Hemoglobin (Bld) [Mass/Vol] 14.5 g/dL Normal 12.0-15.0 [facility] Comment on above: Performed By: #### L 300.4310, L503.6005, L300.3900, L500.4050, L100.0100 #### [facility] [address] [place], [address] IG% 1.100 High 0.0-0.9 [facility] Comment on above: Result Comment: IG% - Immature Granulocytes (promyelocytes, myelocytes and metamyelocytes) > 1% indicates that a LEFT SHIFT is Present. Performed By: #### L 300.4310, L503.6005, L300.3900, L500.4050, L100.0100 #### [facility] [address] [place], [address] Lymphocytes/100 WBC (Bld) 15.6 % Low 19-41 [facility] Comment on above: Performed By: #### L 300.4310, L503.6005, L300.3900, L500.4050, L100.0100 #### [facility] [address] [place], [address] MCH (RBC) [Entitic mass] 31.7 pg Normal 27.0-32.0 [facility] Comment on above: Performed By: #### L 300.4310, L503.6005, L300.3900, L500.4050, L100.0100 #### [facility] [address] [place], [address] MCHC (RBC) [Mass/Vol] 34.8 g/dL Normal 32-36 [facility] Comment on above: Performed By: #### L 300.4310, L503.6005, L300.3900, L500.4050, L100.0100 #### [facility] [address] [place], [address] MCV (RBC) [Entitic vol] 91.0 fL Normal 81-99 [facility] Comment on above: Performed By: #### L 300.4310, L503.6005, L300.3900, L500.4050, L100.0100 #### [facility] [address] [place], [address] Monocytes/100 WBC (Bld) 8.5 % Normal 0-10 [facility] Comment on above: Performed By: #### L 300.4310, L503.6005, L300.3900, L500.4050, L100.0100 #### [facility] [address] [place], [address] Neutrophils/100 WBC (Bld) 74.3 % High 47-70 [facility] Comment on above: Performed By: #### L 300.4310, L503.6005, L300.3900, L500.4050, L100.0100 #### [facility] [address] [place], [address] Nucleated RBC (Bld) [#/Vol] 0 10*3/uL Normal 0-5 [facility] Comment on above: Performed By: #### L 300.4310, L503.6005, L300.3900, L500.4050, L100.0100 #### [facility] [address] [place], [address] Platelet mean volume (Bld) [Entitic vol] 10.7 fL Normal 6.2-12.0 [facility] Comment on above: Performed By: #### L 300.4310, L503.6005, L300.3900, L500.4050, L100.0100 #### [facility] [address] [place], [address] Platelets (Bld) [#/Vol] 203 10*3/uL Normal 150-450 [facility] Comment on above: Performed By: #### L 300.4310, L503.6005, L300.3900, L500.4050, L100.0100 #### [facility] [address] [place], [address] RBC (Bld) [#/Vol] 4.58 10*6/uL Normal 4.2-5.4 [facility] Comment on above: Performed By: #### L 300.4310, L503.6005, L300.3900, L500.4050, L100.0100 #### [facility] [address] [place], [address] RDW SD 43.0 fl Normal 35.1-43.9 [facility] Comment on above: Performed By: #### L 300.4310, L503.6005, L300.3900, L500.4050, L100.0100 #### [facility] [address] [place], [address] WBC (Bld) [#/Vol] 15.9 10*3/uL High 4.4-11.0 [facility] Comment on above: Performed By: #### L 300.4310, L503.6005, L300.3900, L500.4050, L100.0100 #### [facility] [address] [place], [address] Carbon dioxide, total [Moles /volume] in Central venous bloodOrdered By: Angel Carter on 12-21-2024 CO2 [Moles/Vol] 23.0 mmol/L 21.0-32.0 [facility] Chloride assayOrdered By: Levon Carter on 12-21-2024 Chloride [Moles/Vol] 96 mmol/L Low 98-108 [facility] Comprehensive Metabolic Prof ilon 12-21-2024 Albumin [Mass/Vol] 3.3 g/dL Low 3.4-4.8 [facility] Comment on above: Performed By: #### L 300.4310, L503.6005, L300.3900, L500.4050, L100.0100 #### [facility] [address] [place], [address] Albumin/Globulin [Mass ratio] 0.8 {ratio} Low 0.9-2.4 [facility] Comment on above: Performed By: #### L 300.4310, L503.6005, L300.3900, L500.4050, L100.0100 #### [facility] [address] [place], [address] ALK PHOS 157 U/L High 35-104 [facility] Comment on above: Performed By: #### L 300.4310, L503.6005, L300.3900, L500.4050, L100.0100 #### [facility] [address] [place], [address] ALT [Catalytic activity/Vol] 23 U/L Normal <=34 [facility] Comment on above: Performed By: #### L 300.4310, L503.6005, L300.3900, L500.4050, L100.0100 #### [facility] [address] [place], [address] AST [Catalytic activity/Vol] 33 U/L High <=31 [facility] Comment on above: Performed By: #### L 300.4310, L503.6005, L300.3900, L500.4050, L100.0100 #### [facility] [address] [place], [address] Bilirubin [Mass/Vol] 1.04 mg/dL Normal 0.00-1.30 [facility] Comment on above: Performed By: #### L 300.4310, L503.6005, L300.3900, L500.4050, L100.0100 #### [facility] [address] [place], [address] BUN/CRE 12.8 RATIO Normal 10-20 [facility] Comment on above: Performed By: #### L 300.4310, L503.6005, L300.3900, L500.4050, L100.0100 #### [facility] [address] [place], [address] Calcium [Mass/Vol] 9.5 mg/dL Normal 7.6-11.0 [facility] Comment on above: Performed By: #### L 300.4310, L503.6005, L300.3900, L500.4050, L100.0100 #### [facility] [address] [place], [address] Chloride [Moles/Vol] 96 mmol/L Low 98-108 [facility] Comment on above: Performed By: #### L 300.4310, L503.6005, L300.3900, L500.4050, L100.0100 #### [facility] [address] [place], [address] CO2 [Moles/Vol] 23.0 mmol/L Normal 21.0-32.0 [facility] Comment on above: Performed By: #### L 300.4310, L503.6005, L300.3900, L500.4050, L100.0100 #### [facility] [address] [place], [address] Creatinine [Mass/Vol] 1.27 mg/dL High 0.70-1.20 [facility] Comment on above: Performed By: #### L 300.4310, L503.6005, L300.3900, L500.4050, L100.0100 #### [facility] [address] [place], [address] ECRCL 60.57 ml/min Normal 50-250 [facility] Comment on above: Performed By: #### L 300.4310, L503.6005, L300.3900, L500.4050, L100.0100 #### [facility] [address] [place], [address] GAP 15 Normal 5-15 [facility] Comment on above: Performed By: #### L 300.4310, L503.6005, L300.3900, L500.4050, L100.0100 #### [facility] [address] [place], [address] GFR/1.73 sq M.predicted among non-blacks MDRD (S/P/Bld) [Vol rate/Area] 47 mL/min/{1.73_m2} Low >60 [facility] Comment on above: Result Comment: mL/m in/1.73m2 CKD-EPI Creatinine Equation (2020) Performed By: #### L 300.4310, L503.6005, L300.3900, L500.4050, L100.0100 #### [facility] [address] [place], [address] Globulin (S) [Mass/Vol] 3.8 g/dL Normal 2.2-4.2 [facility] Comment on above: Performed By: #### L 300.4310, L503.6005, L300.3900, L500.4050, L100.0100 #### [facility] [address] [place], [address] Glucose [Mass/Vol] 138 mg/dL High 70-99 [facility] Comment on above: Performed By: #### L 300.4310, L503.6005, L300.3900, L500.4050, L100.0100 #### [facility] [address] [place], [address] Potassium [Moles/Vol] 3.0 mmol/L Low 3.3-5.1 [facility] Comment on above: Performed By: #### L 300.4310, L503.6005, L300.3900, L500.4050, L100.0100 #### [facility] [address] [place], [address] Sodium [Moles/Vol] 134 mmol/L Normal 133-145 [facility] Comment on above: Performed By: #### L 300.4310, L503.6005, L300.3900, L500.4050, L100.0100 #### [facility] [address] [place], [address] T PROT 7.1 g/dL Normal 5.9-8.4 [facility] Comment on above: Performed By: #### L 300.4310, L503.6005, L300.3900, L500.4050, L100.0100 #### [facility] [address] [place], [address] Urea nitrogen [Mass/Vol] 16 mg/dL Normal 4-19 [facility] Comment on above: Performed By: #### L 300.4310, L503.6005, L300.3900, L500.4050, L100.0100 #### [facility] [address] [place], [address] Emergency Department Summary on 12-21-2024 Emergency Department Summary [facility] Medical Records Department [address] [place] [address] Emergency Department Summary 12/21/24 MR#: [id number] Acct: [id number] Name: CAROL NOLAN Rep #: [id number] : 1960 64 From: Angel Carter DO PCP: Dr. Mac Olvera MD Status:REG ER Location: ED HPI History of Present Illness Chief Complaint: Complaint Informant: patient and family Onset/Context/Timing Onset: Weeks (3) Context: Gradual Onset Timing: Continuous Quality: Burning Location: Suprapubic area and right lower abdomen Worsened by: Urination Relieved by: Nothing Narrative Narrative: Patient presents with weakness and urinary tract infection symptoms. Patient states this has been getting worse over the past 3 weeks. Patient states it is gradually getting worse. Patient states she has some burning sensation in her bladder area. Patient states it is worse with urinating. Patient states it radiates to the right. Patient admits to fever of 102. Patient admits to some nausea and vomiting. Patient also admits to some shortness of breath. [facility] Medical History Hernia Tobacco use disorder, continuous Encounter for screening for malignant neoplasm of lung in current smoker with 30 pack year history or greater Tobacco use disorder Diabetes mellitus, type II Dyspnea on minimal exertion Atherosclerotic heart disease of [place] coronary artery with unstable angina pectoris Hyperlipidemia Hypertension Chest pain Home Medications ???Medication ???Instructions ???Recorded ???Last Taken ???Type nitroglycerin 0.4 mg sublingual 0.4 mg sublingual Q5M PRN CHEST 06/16/17 06:00 History tablet PAIN gabapentin 300 mg capsule 300 mg PO QHS NEUROPATHY 01/17/16 05/05/23 History albuterol sulfate 90 mcg/actuation 2 puff inhalation Q4H PRN Unknown History aerosol inhaler SHORTNESS OF BREATH/WHEEZING ipratropium 0.5 mg-albuterol 3 mg 3 ml inhalation 4X/DAY PRN Unknown History (2.5 mg base)/3 mL nebulization SHORTNESS OF BREATH/WHEEZING soln metoprolol succinate 50 mg 50 mg PO DAILY BLOOD PRESSURE 02/1005/05/23 History tablet,extended release 24 hr aspirin 81 mg tablet,delayed 162 mg PO DAILY HEART HEALTH 03/0105/05/23 History release clopidogrel 75 mg tablet 75 mg PO DAILY BLOOD THINNER #90 1 07/19/18 05/05/23 Rx tabs lisinopril 20 mg tablet 20 mg PO DAILY BLOOD PRESSURE 09/1105/05/23 History metformin 500 mg tablet,extended 1,500 mg PO DAILY DIABETES 0 05/05/23 History release 24 hr hydralazine 10 mg tablet 10 mg PO BID BLOOD PRESSURE 05/05/23 History rosuvastatin 20 mg tablet 20 mg PO DAILY CHOLESTEROL 3 05/05/23 History pantoprazole 40 mg tablet,delayed 40 mg PO DAILY 30 days #30 tabs 1 Unknown Rx release hydrocodone-acetaminophen 5-325mg 1 tab PO Q6H PRN PRN Pain 3 days 12/22/24 Unknown Rx 5mg-325mg #10 TABLETS levofloxacin 750 mg tablet 750 mg PO DAILY #5 tabs 12/22/24 U nknown Rx ondansetron 4 mg disintegrating 4 mg PO Q8H PRN PRN Nausea #10 tab s 12/22/24 Unknown Rx tablet Allergy/AdvReac Type Severity Reaction Status Date / Time nickel Allergy Rash Verified 05/06/23 12:05 Penicillins (PCN) Allergy Hives Verified 05/06/23 12:05 nicotine (From Nicoderm CQ) AdvReac Severe TERRIBLE Verified 05/06/23 12:05 [place] Family History Mother Kidney disease Congestive heart failure Renal failure Father CAD (coronary artery disease) Daughter Hypertension Surgical History History of left heart catheterization (10/05/19) Stented coronary artery (03/03/19) History of tubal ligation History of total right knee replacement History of History of tonsillectomy and adenoidectomy History of rotator cuff surgery History of selective injection of anesthetic agent around lumbar nerve root History of arthroscopic knee surgery History of esophagogastroduodenoscopy (EGD) History of colonoscopy History of cholecystectomy S/P CABG x 2 (10/17/15) Social History Smoking Status: Current every day smoker tobacco type: cigarettes alcohol intake: never substance use type: does not use ROS ROS ED Constitutional Constitutional ED: Reports fever(s); Denies chills Eyes Eyes: Denies blurry vision or change in vision ENT ENT ED: Denies rhinorrhea or sore throat Cardiovascular Cardiovascular: Denies chest pain or palpitations Respiratory/Chest Respiratory/Chest: Reports dyspnea; Denies cough Gastrointestinal Gastrointestinal: Reports nausea and vomiting Genitourinary Genitour (more content not included)... Normal [facility] Eosinophil percentageOrdered By: Angel Carter on 12-21-2024 Eosinophils/100 WBC (Bld) 0.1 % 0-5 [facility] Erythrocyte distribution wid th ratioOrdered By: Angel Carter on 12-21-2024 Erythrocyte distribution width (RBC) [Ratio] 13.0 % 11.6-14.6 [facility] Erythrocyte distribution wid th standard deviationOrdered By: Angel Carter on 12-21-2024 Erythrocyte distribution width (RBC) [Ratio] 43.0 fl 35.1-43.9 [facility] Glomerular filtration rate ( GFR) estimation/1.73 sq m using serum, plasma, or whole bOrdered By: Angel Carter on 12-21-2024 GFR/1.73 sq M.predicted among non-blacks MDRD (S/P/Bld) [Vol rate/Area] 47 mL/min/{1.73_m2} Low >60 [facility] Comment on above: mL/min/1.73m2 CKD-EP I Creatinine Equation (2020) Hematocrit Auto (Bld) [Volum e fraction]Ordered By: Angel Carter on 12-21-2024 Hematocrit (Bld) [Volume fraction] 41.7 % 37-47 [facility] Hemoglobin measurementOrdere d By: Angel Carter on 12-21-2024 Hemoglobin (Bld) [Mass/Vol] 14.5 g/dL 12.0-15.0 [facility] Immature granulocytes/100 WB C Auto (Bld)Ordered By: Angel Carter on 12-21-2024 Immature granulocytes/100 WBC (Bld) 1.100 % High 0.0-0.9 [facility] Comment on above: IG% - Immature Granu locytes (promyelocytes, myelocytes and metamyelocytes) > 1% indicates that a LEFT SHIFT is Present. International normalized rat io (INR) calculationOrdered By: Angel Carter on 12-21-2024 INR Coag (Bld) [Relative time] 1.2 {INR} [facility] Ketones Test strip Ql (U)Ord ered By: Angel Carter on 12-21-2024 Ketones Ql (U) Negative Negative [facility] - Chemistry and C hemistry - challengeOrdered By: Angel Carter on 12-21-2024 AST [Catalytic activity/Vol] 33 U/L High <32 [facility] Lactic Acidon 12-21-2024 Lactate [Moles/Vol] 1.4 mmol/L Normal 0.0-2.0 [facility] Comment on above: Order Comment: Y Performed By: #### L 300.4310, L503.6005, L300.3900, L500.4050, L100.0100 #### [facility] [address] [place], [address] Lactic acid measurementOrder ed By: Angel Carter on 12-21-2024 Lactate [Moles/Vol] 1.4 mmol/L 0.0-2.0 [facility] MCV (mean corpuscular volume ) determinationOrdered By: Angel Carter on 12-21-2024 MCV (RBC) [Entitic vol] 91.0 fL 81-99 [facility] Mean corpuscular hemoglobin (MCH) determinationOrdered By: Angel Carter on 12-21-2024 MCH (RBC) [Entitic mass] 31.7 pg 27.0-32.0 [facility] Mean corpuscular hemoglobin concentration (MCHC) determinationOrdered By: Angel Carter on 12-21-2024 MCHC (RBC) [Mass/Vol] 34.8 g/dL 32-36 [facility] Mean platelet volume determi nationOrdered By: Angel Carter on 12-21-2024 Platelet mean volume (Bld) [Entitic vol] 10.7 fL 6.2-12.0 [facility] Microscopic analysis of urin e for red blood cells (RBC)Ordered By: Angel Carter on 12-21-2024 Microscopic analysis of urine for red blood cells (RBC) 25-50 SEEN /hpf 0-5 [facility] Monocyte percentageOrdered B y: Angel Carter on 12-21-2024 Monocytes/100 WBC (Bld) 8.5 % 0-10 [facility] Mucus LM Ql (Urine sed)Order ed By: Angel Carter on 12-21-2024 Mucus Ql (Urine sed) 2+ /hpf [facility] Neutrophil percentageOrdered By: Angel Carter on 12-21-2024 Neutrophils/100 WBC (Bld) 74.3 % High 47-70 [facility] Nitrite Test strip Ql (U)Ord ered By: Angel Carter on 12-21-2024 Nitrite Ql (U) Negative Negative [facility] Nucleated red blood cell per centageOrdered By: Angel Carter on 12-21-2024 Nucleated RBC/100 WBC (Bld) [Ratio] 0 % 0-5 [facility] Organism identificationOrder ed By: Angel Carter on 12-21-2024 Microorganism identified Cx Nom (Unsp spec) Negative Abnormal [facility] Partial Thromboplast Timeon 12-21-2024 aPTT Coag (Bld) [Time] 30.3 s Normal 24.1-36.2 [facility] Comment on above: Performed By: #### L 300.4310, L503.6005, L300.3900, L500.4050, L100.0100 #### [facility] [address] [place] [address], [address] Platelet countOrdered By: Levon Carter on 12-21-2024 Platelets (Bld) [#/Vol] 203 10*3/uL 150-450 [facility] Potassium measurement (mass/ volume)Ordered By: Angel Carter on 12-21-2024 Potassium (Unsp spec) [Mass/Vol] 3.0 mmol/L Low 3.3-5.1 [facility] Protein Test strip Ql (U)Ord ered By: Angel Carter on 06-11-2025 Protein Ql (U) 100 mg/dl High Negative [facility] Prothrombin Time w/INRon INR Coag (PPP) [Relative time] 1.2 {INR} Normal [facility] Comment on above: Performed By: #### L 300.4310, L503.6005, L300.3900, L500.4050, L100.0100 #### [facility] [address] [place], [address] PT Coag (PPP) [Time] 15.2 s High 11.7-14.9 [facility] Comment on above: Performed By: #### L 300.4310, L503.6005, L300.3900, L500.4050, L100.0100 #### [facility] [address] [place], [place], [id number] (250) Prothrombin timeOrdered By: Angel Carter on 12-21-2024 PT Coag (PPP) [Time] 15.2 s High 11.7-14.9 [facility] RBC Auto (Bld) [#/Vol]Ordere d By: Angel Carter on 12-21-2024 RBC (Bld) [#/Vol] 4.58 10*6/uL 4.2-5.4 [facility] Serum creatinine measurement (mass/volume)Ordered By: Angel Carter on 12-21-2024 Creatinine [Mass/Vol] 1.27 mg/dL High 0.70-1.20 [facility] Serum globulin measurementOr dered By: Angel Carter on 12-21-2024 Globulin (S) [Mass/Vol] 3.8 g/dL 2.2-4.2 [facility] Serum glucose measurement (m ass/volume)Ordered By: Angel Carter on 12-21-2024 Glucose [Mass/Vol] 138 mg/dL High 70-99 [facility] Serum or plasma alanine alvarez otransferase (ALT) measurementOrdered By: Angel Carter on 12-21-2024 ALT [Catalytic activity/Vol] 23 U/L <35 [facility] Serum or plasma albumin lexie urement (mass/volume)Ordered By: Angel Carter on 12-21-2024 Albumin [Mass/Vol] 3.3 g/dL Low 3.4-4.8 [facility] Serum or plasma albumin/glob ulin mass ratioOrdered By: Angel Carter on 12-21-2024 Albumin/Globulin [Mass ratio] 0.8 {ratio} Low 0.9-2.4 [facility] Serum or plasma alkaline jeronimo sphatase measurementOrdered By: Angel Carter on 12-21-2024 ALP [Catalytic activity/Vol] 157 U/L High 35-104 [facility] Serum or plasma calcium lexie urement (mass/volume)Ordered By: Angel Carter on 12-21-2024 Calcium [Mass/Vol] 9.5 mg/dL 7.6-11.0 [facility] Serum or plasma urea nitroge n measurement (mass/volume)Ordered By: Angel Carter on 12-21-2024 Urea nitrogen [Mass/Vol] 16 mg/dL 4-19 [facility] Sodium levelOrdered By: Angel Carter on 12-21-2024 Sodium [Moles/Vol] 134 mmol/L 133-145 [facility] Squamous epithelial cells de tection in urine sediment by light microscopyOrdered By: Angel Carter on 12-21-2024 Epithelial cells.squamous LM Ql (Urine sed) 0-5 SEEN /hpf 11-19 [facility] Total proteinOrdered By: Chiara Carter on 12-21-2024 Protein [Mass/Vol] 7.1 g/dL 5.9-8.4 [facility] Urinalysis, Completeon 12-21 EPI,SQUAMOUS 0-5 SEEN Normal - [facility] Comment on above: Order Comment: AMANDA TER SPECIMEN Performed By: #### L 400.0001, #### [facility] [address] [place], [place], [id number] BACTERIA 3+ /hpf Normal None Seen [facility] Comment on above: Order Comment: AMANDA TER SPECIMEN Performed By: #### L 400.0001, #### [facility] [address] [place], [address] Mucus Ql (Urine sed) 2+ /hpf Normal [facility] Comment on above: Order Comment: AMANDA TER SPECIMEN Performed By: #### L 400.0001, M100.2200 #### [facility] [address] [place], [address] RBC 25-50 SEEN Normal 0-5 [facility] Comment on above: Order Comment: AMANDA TER SPECIMEN Performed By: #### L 400.0001, M100.2200 #### [facility] [address] [place], [address] WBC 50-100 SEEN Normal 0-5 [facility] Comment on above: Order Comment: AMANDA TER SPECIMEN Performed By: #### L 400.0001, M100.2200 #### [facility] [address] [place], [address] Urine clarityOrdered By: Chiara Carter on 12-21-2024 Clarity (U) Cloudy Clear [facility] Urine color determinationOrd ered By: Angel Carter on 12-21-2024 Color (U) Yellow Yellow [facility] Urine cultureOrdered By: Chiara Carter on 12-21-2024 Bacteria identified Cx Nom (U) Escherichia coli Abnormal [facility] Urine glucose detectionOrder ed By: Angel Carter on 12-21-2024 Glucose Ql (U) Normal mg/dl Normal [facility] Urine leukocyte esterase det ection by dipstickOrdered By: Angel Carter on 12-21-2024 Leukocyte esterase Test strip Ql (U) 100 /ul High Negative [facility] Urine pHOrdered By: Angel stacy on 12-21-2024 pH (U) 6.0 [pH] 5.0 - 8.0 [facility] Urine sediment bacteria coun t by microscopy (number/high power field)Ordered By: Angel Carter on 12-21-2024 Bacteria LM.HPF (Urine sed) [#/Area] 3 /[HPF] None Seen [facility] Urine specific gravity measu rementOrdered By: Angel Carter on 12-21-2024 Specific gravity (U) [Rel density] 1.015 1.002-1.03 0 [facility] Urine urobilinogen measureme ntOrdered By: Angel Carter on 12-21-2024 Urobilinogen Ql (U) 4 mg/dl High Normal [facility] White blood cell (WBC) count Ordered By: Angel Carter on 12-21-2024 WBC (Bld) [#/Vol] 15.9 10*3/uL High 4.4-11.0 [facility] White blood cell countOrdere d By: Angel Carter on 12-21-2024 White blood cell count 50-100 SEEN /hpf 0-5 [facility] CNPNon 12-19-2024 CNPN Telephone ([facility] CAROL NOLAN ([id number]) 1960 F Date Time Provider Department 12/19/24 [facility] During your visit today, we recorded the following information about you: Lauryn Baldwin, [facility] 12/19/2024 12:03 PM Signed Needs an appt. We must get a culture to make certain what we are treating. Ro Royal LPN 12/19/2024 1:01 PM Signed Patient had sent a [employer] message. Did send her a message back to let her know that she needs an appt for evaluation and treatment. Pebbles Gonzalez MA 12/22/2024 11:09 AM Signed Pt read [employer] message. Pebbles Gonzalez MA December 22, 2024 11:09 AM Allergies As of Date: 12/19/2024 Noted Allergy Reaction PENICILLINS 08/01/2014 4 - Hives 7 - Swelling NICKEL 05/03/2015 16 - Unknown Comments: Metal jewelry Date Reviewed: 11/16/2024 Reviewed by: Adriana Mathis APRN.SHIFT PRODUCTION ASSOCIATE - Fully Assessed Reason for Visit: Appointment [186] Prescriptions as of 12/22/2024 - fluticasone-vilanterol (BREO ELLIPTA) 200-25 mcg/dose inhaler Inhale 1 Inhalation as instructed once daily. - Blood-Glucose Sensor (FREESTYLE GARDENIA 3 SENSOR) chana Use as directed. - Cyanocobalamin 1,000 mcg TbER Take 1 tablet by mouth once daily. - dulaglutide (TRULICITY) 0.75 mg/0.5 mL pen injector Inject 0.75 mg subcutaneously one time a week. Inject dose once per week. Discard Pen After - DULoxetine (CYMBALTA) 30 mg capsule Take 1 capsule by mouth once daily. - metFORMIN ER (GLUCOPHAGE XR) 500 mg 24 hr tablet Take 3 tablets by mouth daily with breakfast. - metoprolol succinate ER (TOPROL XL) 50 mg 24 hr tablet Take 1 tablet by mouth once daily. - clopidogrel (PLAVIX) 75 mg tablet Take 1 tablet by mouth once daily. - gabapentin (NEURONTIN) 300 mg capsule Take 1 capsule by mouth daily at bedtime for 180 days. - lisinopril (ZESTRIL) 40 mg tablet Take 1 tablet by mouth once daily. - albuterol HFA (PROVENTIL HFA, VENTOLIN HFA) 90 mcg/actuation inhaler Inhale 2 Puffs as instructed every 6 hours as needed for wheezing/shortness of breath. - Ibuprofen 200 mg cap Take by mouth every 6 hours as needed for pain. - aspirin, enteric coated (ASPIRIN, ENTERIC COATED) 81 mg EC tablet Take 2 tablets by mouth once daily. - rosuvastatin (CRESTOR) 40 mg tablet Take 1 tablet by mouth once daily. - Blood-Glucose Meter,Continuous (FREESTYLE GARDENIA 3 READER) [facility] Use as directed - nitroglycerin sublingual (NITROQUICK) 0.4 mg SL tablet Dissolve 1 tablet under the tongue as needed for chest pain. - Blood-Glucose Meter (ONETOUCH ULTRA2 METER) USE DIRECTED - blood sugar diagnostic (BLOOD GLUCOSE TEST) test strip Test blood sugar(s) 1 times daily. Dx: Type 2 DM - Uncontrolled E11.65 Insulin: No - Lancets lancets Test blood sugar(s) 1 times daily. Dx: Type 2 DM - Uncontrolled E11.65 Insulin: No - ipratropium-albuterol (DUONEB) 0.5 mg-3 mg(2.5 mg base)/3 mL nebu Inhale 3 mL as instructed four times daily. Problem List As Of Date 12/19/2024 Noted Resolved Chest pain [R07.9] 08/01/2014 05/31/2015 Shortness of breath [R06.02] 08/01/2014 08/18/2023 Abdominal pain [R10.9] 08/01/2014 12/01/2014 HTN (hypertension) [I10] 08/01/2014 Fever [R50.9] 08/03/2014 12/01/2014 Coronary artery disease involving upper matt[place] lino*08/31/2014 Palpitations [R00.2] 12/19/2014 Obesity [E66.9] 12/19/2014 01/19/2017 Diarrhea [R19.7] 01/19/2017 Skin tag [L91.8] 04/27/2015 01/19/2017 Tobacco abuse [Z72.0] 05/03/2015 01/19/2017 Tobacco use disorder [F17.200] 05/31/2015 Hyperglycemia [R73.9] 11/08/2015 Gross hematuria [R31.0] 09/18/2015 Adrenal nodule (HCC) [E27.9] 09/18/2015 Morbid obesity (HCC) [E66.01] 09/18/2015 Type 2 diabetes mellitus without complication (*11/08/2015 S/P CABG x 2 [Z95.1] 04/25/2016 Essential hypertension [I10] 04/25/2016 07/14/2018 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] 02/05/2018 Hoarseness [R49.0] 02/05/2018 08/18/2023 Obesity, Class III, BMI >= 40 [E66.813] 04/05/2018 08/18/2023 Other hyperlipidemia [E78.49] 12/17/2020 Carotid artery stenosis, asymptomatic, bilatera*12/02/2021 NSVT (nonsustained ventricular tachycardia) (HC*12/02/2021 Gastroesophageal reflux disease with esophagiti*11/28/2022 History of colonic polyps [Z86.0100] 11/28/2022 Obesity, Class III, BMI >= 40 [E66.813] 01/25/2024 Pre-operative cardiovascular examination [Z01.8*01/25/2024 Encounter Status:Closed by PEBBLES GONZALEZ on 12/22/24 Normal [facility] US CAROTID ARTERIES LEE VAS LABon 2024 US CAROTID ARTERIES LEE VAS LAB Non-Invasive Vascular Laboratory [facility] Carotid Duplex Bilateral/Complete Date of service/time: 2024 12:32:11 PM Name: MRS. CAROL NOLAN Date of : 1960 Age: 64 years Gender: F Clinical Indication Dizziness and follow-up study on a patient with known carotid disease. TECHNIQUE -------- A carotid duplex ultrasound examination was performed, including grayscale imaging and color Doppler and spectral Doppler examination of the below mentioned arteries. FINDINGS -------- RIGHT SIDE Common carotid artery: Origin: PSV: 147 cm/s. EDV: 22 cm/s. Proximal: PSV: 94 cm/s. EDV: 16 cm/s. Mid: PSV: 86 cm/s. EDV: 23 cm/s. Distal: PSV: 79 cm/s. EDV: 25 cm/s. Mild calcified plaque at distal. Internal carotid artery: Origin: PSV: 138 cm/s. EDV: 27 cm/s. Proximal: PSV: 94 cm/s. EDV: 20 cm/s. Mid: PSV: 93 cm/s. EDV: 24 cm/s. Distal: PSV: 86 cm/s. EDV: 31 cm/s. Mild calcified plaque from origin to proximal. ICA/CCA Ratio: 1.7 External carotid artery: Proximal: PSV: 88 cm/s. EDV: 14 cm/s. Subclavian artery: Proximal: PSV: 123 cm/s. EDV: 0 cm/s. Mild heterogeneous plaque at proximal. Innominate artery: PSV: 109 cm/s. EDV: 13 cm/s. Mild/moderate heterogeneous plaque at distal. Vertebral artery: PSV: 49 cm/s. EDV: 18 cm/s. LEFT SIDE Common carotid artery: Proximal: PSV: 105 cm/s. EDV: 21 cm/s. Mid: PSV: 96 cm/s. EDV: 22 cm/s. Distal: PSV: 97 cm/s. EDV: 23 cm/s. Mild heterogeneous plaque at distal. Internal carotid artery: Origin: PSV: 97 cm/s. EDV: 18 cm/s. Proximal: PSV: 81 cm/s. EDV: 23 cm/s. Mid: PSV: 70 cm/s. EDV: 29 cm/s. Distal: PSV: 76 cm/s. EDV: 24 cm/s. Mild calcified plaque from origin to proximal. ICA/CCA Ratio: 1.0 External carotid artery: Proximal: PSV: 110 cm/s. EDV: 21 cm/s. Subclavian artery: Proximal: PSV: 194 cm/s. EDV: 0 cm/s. Vertebral artery: PSV: 42 cm/s. EDV: 10 cm/s. IMPRESSION Please note: the new carotid interpretation criteria are used as recommended by [facility] [employer]. When compared with the prior study, of 12/13/2021 no significant change is noted on the right side and no significant change is noted on the left side. RIGHT SIDE Common carotid artery: Plaque visualized without evidence of hemodynamically significant stenosis. Internal carotid artery: <50% stenosis consistent with mild carotid artery disease. External carotid artery: Patent. Vertebral artery: Patent and antegrade flow noted. Innominate artery: Turbulent flow noted, cannot rule out more proximal stenosis. May wish other means of evaluation. Subclavian artery: Plaque visualized without evidence of hemodynamically significant stenosis. LEFT SIDE Common carotid artery: Plaque visualized without evidence of hemodynamically significant stenosis. Internal carotid artery: <50% stenosis consistent with mild carotid artery disease. Tortuous vessel throughout . External carotid artery: Patent. Vertebral artery: Patent and antegrade flow noted. Subclavian artery: Patent. Technologist: Suzan Trevino T Ordering physician: RC DELACRUZ Interpreting physician: Aaron Solis MD, JONNA Final [employer] [facility] Image : [id number] See Link below for Image [facility] CNOVon 11-16-2024 CNOV Office Visit (GENSWS ) CAROL NOLAN ([id number]) 1960 F Date Time Provider Department 11/16/24 11:30 AM ADRIANA MATHIS [facility] During your visit today, we recorded the following information about you: Temperature 97.5 degrees Adriana Mathis APRN.SHIFT PRODUCTION ASSOCIATE 11/16/2024 12:55 PM Signed POST OP Carol Nolan : 1960 HISTORY: Carol Nolan is a 63 year old female who presents for follow up, s/p excision of sebaceaous cyst on face and chest skin lesion with Dr. Jones on 11/10/24. The surgical sites are healing without difficulty. Carol Nolan has no complaints. Pathology was discussed with the patient: FINAL DIAGNOSIS A. Skin, right cheek, excision: - Epidermal inclusion cyst. B. Skin, left chest, excision: - Seborrheic keratosis, focally inflamed. AF/SP/mm/11/14/2024 PAST MEDICAL HISTORY: PAST MEDICAL HISTORY Diagnosis Date Arthritis Chronic back pain Cigarette smoker Colon polyps COPD (chronic obstructive pulmonary disease) (HCC) Coronary artery disease Coronary artery disease involving upper mattaponi coronary artery of upper mattaponi heart without angina pectoris Degeneration of intervertebral disc of lumbar region with discogenic back pain Dental caries Diabetes (HCC) Diarrhea Enlarged aorta Essential hypertension Fatty liver ultra sound 2014 Hyperglycemia Hyperlipidemia Obesity Preinfarction syndrome (HCC) S/P CABG x 2 Tobacco abuse Type 2 diabetes mellitus without complication, without long-term current use of insulin (HCC) ACTIVE PROBLEM LIST Htn (Hypertension) Coronary Artery Disease Involving [place] Coronary Artery of [place] Heart Without Angina Pectoris Palpitations Tobacco Use Disorder Gross Hematuria Adrenal Nodule (Hcc) Morbid Obesity (Hcc) Type 2 Diabetes Mellitus Without Complication (Hcc) S/P Cabg X 2 Polypoid Corditis Vocal Cord Polyp Other Hyperlipidemia Carotid Artery Stenosis, Asymptomatic, Bilateral Nsvt (Nonsustained Ventricular Tachycardia) (Hcc) Gastroesophageal Reflux Disease With Esophagitis Without Hemorrhage History of Colonic Polyps Obesity, Class III, BMI >= 40 Pre-Operative Cardiovascular Examination PAST SURGICAL HISTORY Procedure Laterality Date CABG (2) VEIN GRAFTS AND ARTERIAL GRAFT(S 10/17/2015 DELIVERY ONLY , low transverse CHOLECYSTECTOMY HX maybe COLONOSCOPY 11/27/2017 COLONOSCOPY FLX DX W/COLLJ SPEC WHEN PFRMD 05/17/2015 Colonoscopy [facility] outpt ESOPHAGOGASTRODUODENOSCOPY TRANSORAL DIAGNOSTIC 05/17/2015 EGD [facility] outpt HEART SURGERY HX JOINT REPLACEMENT HX ORTHOPEDICS SURGERY HX Left RCR PAST SURGICAL HISTORY OF Bilateral knee arthroscopy PAST SURGICAL HISTORY OF lumbar pain injections PAST SURGICAL HISTORY OF Repair tendon/muscle arm-left rotator cuff surgery TONSILLECTOMY AND ADENOIDECTOMY HX TONSILLECTOMY HX TOTAL KNEE REPLACEMENT right TUBAL LIGATION HX MEDICATIONS: Current Outpatient Medications Medication Sig Cyanocobalamin 1,000 mcg TbER Take 1 tablet by mouth once daily. dulaglutide (TRULICITY) 0.75 mg/0.5 mL pen injector Inject 0.75 mg subcutaneously one time a week. Inject dose once per week. Discard Pen After DULoxetine (CYMBALTA) 30 mg capsule Take 1 capsule by mouth once daily. metFORMIN ER (GLUCOPHAGE XR) 500 mg 24 hr tablet Take 3 tablets by mouth daily with breakfast. metoprolol succinate ER (TOPROL XL) 50 mg 24 hr tablet Take 1 tablet by mouth once daily. clopidogrel (PLAVIX) 75 mg tablet Take 1 tablet by mouth once daily. gabapentin (NEURONTIN) 300 mg capsule Take 1 capsule by mouth daily at bedtime for 180 days. mometasone-formoterol (DULERA) 200-5 mcg/actuation inhaler Inhale 1 Puff as instructed two times a day. lisinopril (ZESTRIL) 40 mg tablet Take 1 tablet by mouth once daily. albuterol HFA (PROVENTIL HFA, VENTOLIN HFA) 90 mcg/actuation inhaler Inhale 2 Puffs as instructed every 6 hours as needed for wheezing/shortness of breath. Ibuprofen 200 mg cap Take by mouth every 6 hours as needed for pain. aspirin, enteric coated (ASPIRIN, ENTERIC COATED) 81 mg EC tablet Take 2 tablets by mouth once daily. rosuvastatin (CRESTOR) 40 mg tablet Take 1 tablet by mouth once daily. Blood-Glucose Meter,Continuous (FREESTYLE GARDENIA 3 READER) [facility] Use as directed Blood-Glucose Sensor (FREESTYLE GARDENIA 3 SENSOR) [facility] Use as directed. Blood-Glucose Meter ([employer] ULTRA2 METER) USE DIRECTED blood sugar diagnostic (BLOOD GLUCOSE TEST) test strip Test blood sugar(s) 1 times daily. Dx: Type 2 DM - Uncontrolled E11.65 Insulin: No Lancets lancets Test blood sugar(s) 1 times daily. Dx: Type 2 DM - Uncontrolled E11.65 Insulin: No ipratropium-albuterol (DUONEB) 0.5 mg-3 mg(2.5 mg base)/3 mL nebu Inhale 3 mL as instructed four times daily. nitroglycerin sublingual (NITROQUICK) 0.4 mg SL tablet Dissolve (more content not included)... [facility] CNOVon 11-10-2024 CNOV Office Visit (GENSWS ) EVENSCAROL L ([id number]) 1960 F Date Time Provider Department 11/10/24 12:30 PM HANNA JONES GENRANDYS During your visit today, we recorded the following information about you: Hanna Jones MD 11/12/2024 7:33 AM Signed FOLLOW UP VISIT - SKIN LESION NAME: Carol Koenig [facility] NO.: [id number] DATE OF SERVICE: 11/10/2024 : 1960 REFERRING PHYSICIAN: Mac Olvera MD Carol is a 63-year-old female presenting with a lesion on the lip and a sebaceous cyst on the right side of the face. Carol reports a lesion on the lip that has been present for a couple of months. She is unsure if it is growing and has not consulted a motorcycle subassembly repairer about it. Additionally, she has a sebaceous cyst on the right side of the face, which started as a small pimple and has darkened over time. She denies any pain associated with these lesions. Carol is currently on Plavix and aspirin 2 - 81 mg daily. She is unsure of the indication for Plavix but mentions it might be related to a previous condition. She took her medication today and is uncertain if she can stop it for a few days. She also reports dental issues and has been advised to have all her teeth removed. She has consulted several dentists, but her insurance, Medicare, does not cover dental procedures. She has not yet seen an oral surgeon. She has held her Plavix. VITALS: There were no vitals taken for this visit. On examination, HEENT: Lesion on lip; sebaceous cyst on right side of face; seborrheic keratosis on left chest, less than 1 cm. PROCEDURE: EXCISION OF SKIN LESION The risks, benefits and anticipated outcomes of the procedure, the risks and benefits of the alternatives to the procedure, and the roles and tasks of the personnel to be involved, were discussed with the patient, and the patient consents to the procedure and agrees to proceed. I verify that I personally obtained the patient's consent. The patient`s skin was prepped and draped in the usual fashion. A combination of Lidocaine and Marcaine was injected into the skin. An elliptical incision was made around the lesion and was removed in its entirety. The specimen measured 1.2 by 1 cm. This was sent to pathology. The skin was then closed with interrupted 4-0 nylon sutures. The patient tolerated the procedure well. PROCEDURE: EXCISION OF SEBACEOUS CYST - FACE The risks, benefits and anticipated outcomes of the procedure, the risks and benefits of the alternatives to the procedure, and the roles and tasks of the personnel to be involved, were discussed with the patient, and the patient consents to the procedure and agrees to proceed. I verify that I personally obtained the patient's consent. The patient`s skin was prepped and draped in the usual fashion. A combination of Lidocaine and Marcaine was injected into the skin. An eliptical incision was made over the sebaceous cyst. The sebaceous cyst was dissected from it's subcutaneous attachments and removed in its entirety. The specimen measured 1.0 by 1.0 cm. This was sent to pathology. The skin was then closed with interrupted 5-0 nylon sutures. The patient tolerated the procedure well. Assessment IMPRESSION: Status post excision of face sebaceous cyst and chest skin lesion PLAN: If the patient notes any problems or signs of wound infections, the patient should contact me immediately. The patient is to follow up in approximately 7 days for suture removal. Diagnoses: (L72.3) Sebaceous cyst (primary encounter diagnosis) Return to Clinic: The patient is instructed to follow-up with my nurse for suture removal in 5 days. Hanna Jones MD UNIVERSAL PROTOCOL / SAFETY CHECKLIST Procedure to be Performed: Excision of chest and face lesion Sign In: A Moment of CARE was completed. Appropriate PPE (Personal Protective Equipment) worn by all providers involved with the procedure. Special equipment not required. Patient/Surrogate Stated/Verified: Patient name, Date of , Relevant allergies, and The intended procedure Time Out: Relevant labs, photos, and/or imaging studies have been reviewed. Intended patient and procedure match the source document(s) (e.g. consent, HANDP, associated studies [imaging, pathology]) match the intended patient and procedure. Consent obtained and matches the intended procedure. Yes. Correct side/site is not applicable. Medications required for this procedure are verified. Fire risk assessed and interventions discussed. Implants: are not applicable. Sign Out: Specimens are all correctly labeled and sent. All instruments, equipment, possible retained foreign bodies are accounted for. Yes. The post-procedure plan of care has been communicated to the patient or surrogate. Miya Moralez LPN 11/12/2024 7:33 AM Signed U (more content not included)... [facility] Pathology biopsy report Fred (Tiss)on 11-10-2024 AP DISCLAIMER [facility] Comment on above: Order Comment: Speci men Type: TISSUE SPECIMENOrdering Facility: [facility] Address: [address] [place] [address] Result Comment: Luis sands Developed Test (LDT) Disclaimer: Performance characteristics of immunohistochemical, immunofluorescent, and chromogenic in-situ hybridization tests have been determined by the performing laboratory within [facility]'s [facility] Pathology and Laboratory Medicine Department ([facility], [facility], [facility], [facility], [facility], or [facility]) in a manner consistent with CLIA requirements. One or more of these tests may not have been cleared or approved by the FDA. [facility] is regulated under CLIA as qualified to perform high-complexity testing. These tests are used for clinical purposes. These should not be regarded as investigational or for research. Positive and negative controls stain appropriately. Performed By: #### 6 6121-5 ####[facility] [id number] [place] [address] [place] CASE REPORT [facility] Comment on above: Order Comment: Speci men Type: TISSUE SPECIMENOrdering Facility: [facility] Address: [address] [place] [address] Result Comment: Surg [facility] Pathology Report Case: [id number] Authorizing Provider: Hanna Jones MD Collected: 11/10/2024 04:09 PM Ordering Location: General Surgery Received: 11/10/2024 04:29 PM Pathologist: Ajit Nunez MD, PhD Specimens: A) - Skin, Excision, Right cheek B) - Skin, Excision, Left Chest Performed By: #### 6 6121-5 ####[facility] [id number] [place] [address] [place] CLINICAL HISTORY Skin, Excision Normal [facility] Comment on above: Order Comment: Speci men Type: TISSUE SPECIMENOrdering Facility: [facility] Address: [address] [place] [address] Result Comment: Comm ent: Right cheek Performed By: #### 6 6121-5 ####[facility] [id number] [id number] FINAL DIAGNOSIS [facility] Comment on above: Order Comment: Speci men Type: TISSUE SPECIMENOrdering Facility: [facility] Address: [address] [place] [address] Result Comment: A. S kin, right cheek, excision: - Epidermal inclusion cyst. B. Skin, left chest, excision: - Seborrheic keratosis, focally inflamed. AF/SP/mm/11/14/2024 at 1356 EDT Performed By: #### 6 6121-5 ####[facility] [id number] [address] OF [facility] FINAL PERFORMING LAB [facility] Comment on above: Order Comment: Speci men Type: TISSUE SPECIMENOrdering Facility: [facility] Address: [address] [place] [address] Result Comment: Diag nostic interpretation performed at: [facility], [address] [place] [address] CLIA# [id number] Pack Master: Raymond Gil MD Performed By: #### 6 6121-5 ####[facility] [id number] [address] GROSS DESCRIPTION Normal [facility] Comment on above: Order Comment: Speci men Type: TISSUE SPECIMENOrdering Facility: [facility] Address: [address] [place] [address] Result Comment: A. S kin, Excision Received in formalin are two irregular shaped segments of pruitt to pruitt-brown, soft material aggregating to 1.4 x 0.7 x 0.5 cm. The specimen resembles a ruptured cyst. Skin is present. Coat Joiner sections are submitted in one cassette. B. Skin, Excision Received in formalin is an irregular shaped segment of pruitt, soft material measuring 1.2 x 0.7 x 0.6 cm. The specimen resembles a cyst, is not ruptured. Skin is present. No apparent cyst seen upon sectioning. A customer field representative section is submitted one cassette. DB November 11, 2024 1:38 AM Gross examination performed at [facility], [address] [place] [address] Performed By: #### 6 6121-5 ####[facility] [id number] [facility] [place] [id number] [facility] CNOVon 11-02-2024 CNOV Office Visit (GENSWS ) CAROL NOLAN ([id number]) 1960 F Date Time Provider Department 11/02/24 11:15 AM HANNA JONES During your visit today, we recorded the following information about you: Pulse Respiration Blood pressure Weight 74/minute 18/minute 136/79 133 kg Hanna Jones MD 11/02/2024 11:56 AM Signed We discussed the lesions on your lip and face: - The lesion on your lip will require evaluation by an oral surgeon for further assessment and possible biopsy or removal. I recommend scheduling an appointment with an oral surgeon to address this. - The lesion on your right cheek appears to be a sebaceous cyst, and the lesion on your chest appears to be a seborrheic keratosis. These do not look suspicious to me and can be removed in the office. - To prepare for the removal of the lesions on your cheek and chest: - Reduce your aspirin dose to 81 mg daily (from 281 mg) for 5 days before the procedure. - Stop taking Plavix (clopidogrel) for 3 days before the procedure. - During the procedure, I will numb the area with local anesthetic, remove the lesions, and place stitches. You will need to return in one week to have the stitches removed. - Please schedule the procedure at the front end web developer. I am available on Thursday, November 09, Thursday, November 16 (afternoon), or , November 10. We discussed your dental concerns: - You mentioned needing to have all your teeth removed but have not yet seen an oral surgeon due to insurance coverage issues. I recommend exploring options such as the [facility], where oral surgeons may volunteer, to assist with your dental care. Please follow the instructions above to prepare for your procedure and address your dental concerns. Let us know if you have any questions or need further assistance. Hanna Jones MD 11/03/2024 6:05 AM Signed HISTORY AND PHYSICAL Carol Nolan 1960 REFERRING PHYSICIAN: Lauryn Baldwin A* CHIEF COMPLAINT: skin lesion HPI: The patient is a 63 year old female. Carol is a 63-year-old female presenting with a lesion on the lip and a sebaceous cyst on the right side of the face. Carol reports a lesion on the lip that has been present for a couple of months. She is unsure if it is growing and has not consulted a motorcycle subassembly repairer about it. Additionally, she has a sebaceous cyst on the right side of the face, which started as a small pimple and has darkened over time. She denies any pain associated with these lesions. Carol is currently on Plavix and aspirin 281 mg daily. She is unsure of the indication for Plavix but mentions it might be related to a previous condition. She took her medication today and is uncertain if she can stop it for a few days. She also reports dental issues and has been advised to have all her teeth removed. She has consulted several dentists, but her insurance, Medicare, does not cover dental procedures. She has not yet seen an oral surgeon. SIGNIFICANT MEDICAL PROBLEMS: PAST MEDICAL HISTORY Diagnosis Date Arthritis Chronic back pain Cigarette smoker Colon polyps COPD (chronic obstructive pulmonary disease) (HCC) Coronary artery disease Coronary artery disease involving upper [place] coronary artery of upper [place] heart without angina pectoris Degeneration of intervertebral disc of lumbar region with discogenic back pain Dental caries Diabetes (HCC) Diarrhea Enlarged aorta Essential hypertension Fatty liver ultra sound 2014 Hyperglycemia Hyperlipidemia Obesity Preinfarction syndrome (HCC) S/P CABG x 2 Tobacco abuse Type 2 diabetes mellitus without complication, without long-term current use of insulin (HCC) OPERATIONS: PAST SURGICAL HISTORY Procedure Laterality Date CABG (2) VEIN GRAFTS AND ARTERIAL GRAFT(S 10/17/2015 DELIVERY ONLY , low transverse CHOLECYSTECTOMY HX maybe 1990's COLONOSCOPY 11/27/2017 COLONOSCOPY FLX DX W/COLLJ SPEC WHEN PFRMD 05/17/2015 Colonoscopy [facility] outpt ESOPHAGOGASTRODUODENOSCOPY TRANSORAL DIAGNOSTIC 05/17/2015 EGD [facility] outpt HEART SURGERY HX JOINT REPLACEMENT HX ORTHOPEDICS SURGERY HX Left RCR PAST SURGICAL HISTORY OF Bilateral knee arthroscopy PAST SURGICAL HISTORY OF lumbar pain injections PAST SURGICAL HISTORY OF Repair tendon/muscle arm-left rotator cuff surgery TONSILLECTOMY AND ADENOIDECTOMY HX TONSILLECTOMY HX TOTAL KNEE REPLACEMENT right TUBAL LIGATION HX CURRENT MEDICATIONS: Current Outpatient Medications Medication Sig Dispense Refill Cyanocobalamin 1,000 mcg TbER Take 1 tablet by mouth once daily. 30 tablet 11 dulaglutide (TRULICITY) 0.75 mg/0.5 mL pen injector Inject 0.75 mg subcutaneously one time a week. Inject dose once per week. Discard Pen After 2 mL 11 doxycycline hyclate (VIBRAMYCIN) 100 mg capsule Take 1 capsule by mouth two (more content not included)... Normal [facility] CNOVon 10-27-2024 CN Office Visit (FAMPWS ) CAROL NOLAN ([id number]) 1960 F Date Time Provider Department 10/27/24 1:40 PM [facility] During your visit today, we recorded the following information about you: Pulse Blood pressure Weight 78/minute 130/76 133.8 kg Lauryn Baldwin APRN.SHIFT PRODUCTION ASSOCIATE 10/27/2024 2:03 PM Signed This is a 63 year old female who presents today with: Patient presents with: 6 Month Exam HISTORY OF PRESENT ILLNESS: Carol Nolan is a 63 year old female. Patient presents with: 6 Month Exam Heart doctor told her that her teeth need pulled. She wants teeth pulled and extraction. Also has a mole on shoulder that needs checked. PAST MEDICAL HISTORY: PAST MEDICAL HISTORY Diagnosis Date Arthritis Chronic back pain Cigarette smoker Colon polyps COPD (chronic obstructive pulmonary disease) (HCC) Coronary artery disease Diabetes (HCC) Diarrhea Essential hypertension Fatty liver ultra sound 2014 Hyperglycemia Hyperlipidemia Obesity Preinfarction syndrome (HCC) Tobacco abuse PAST SURGICAL HISTORY Procedure Laterality Date CABG (2) VEIN GRAFTS AND ARTERIAL GRAFT(S 10/17/2015 DELIVERY ONLY , low transverse CHOLECYSTECTOMY HX maybe COLONOSCOPY 11/27/2017 COLONOSCOPY FLX DX W/COLLJ SPEC WHEN PFRMD 05/17/2015 Colonoscopy [facility] outpt ESOPHAGOGASTRODUODENOSCOPY TRANSORAL DIAGNOSTIC 05/17/2015 EGD [facility] outpt HEART SURGERY HX JOINT REPLACEMENT HX ORTHOPEDICS SURGERY HX Left RCR PAST SURGICAL HISTORY OF Bilateral knee arthroscopy PAST SURGICAL HISTORY OF lumbar pain injections PAST SURGICAL HISTORY OF Repair tendon/muscle arm-left rotator cuff surgery TONSILLECTOMY AND ADENOIDECTOMY HX TONSILLECTOMY HX TOTAL KNEE REPLACEMENT right TUBAL LIGATION HX ALLERGIES Penicillins and Nickel MEDICATIONS Current Outpatient Medications Medication Sig DULoxetine (CYMBALTA) 30 mg capsule Take 1 capsule by mouth once daily. metFORMIN ER (GLUCOPHAGE XR) 500 mg 24 hr tablet Take 3 tablets by mouth daily with breakfast. metoprolol succinate ER (TOPROL XL) 50 mg 24 hr tablet Take 1 tablet by mouth once daily. clopidogrel (PLAVIX) 75 mg tablet Take 1 tablet by mouth once daily. gabapentin (NEURONTIN) 300 mg capsule Take 1 capsule by mouth daily at bedtime for 180 days. mometasone-formoterol (DULERA) 200-5 mcg/actuation inhaler Inhale 1 Puff as instructed two times a day. lisinopril (ZESTRIL) 40 mg tablet Take 1 tablet by mouth once daily. albuterol HFA (PROVENTIL HFA, VENTOLIN HFA) 90 mcg/actuation inhaler Inhale 2 Puffs as instructed every 6 hours as needed for wheezing/shortness of breath. Ibuprofen 200 mg cap Take by mouth every 6 hours as needed for pain. aspirin, enteric coated (ASPIRIN, ENTERIC COATED) 81 mg EC tablet Take 2 tablets by mouth once daily. rosuvastatin (CRESTOR) 40 mg tablet Take 1 tablet by mouth once daily. dulaglutide (TRULICITY) 0.75 mg/0.5 mL pen injector Inject 0.75 mg subcutaneously one time a week. Inject dose once per week. Discard Pen After Blood-Glucose Meter,Continuous (FREESTYLE GARDENIA 3 READER) [facility] Use as directed Blood-Glucose Sensor (FREESTYLE [place]ARDEN[place] 3 SENSOR) chana Use as directed. nitroglycerin sublingual (NITROQUICK) 0.4 mg SL tablet Dissolve 1 tablet under the tongue as needed for chest pain. Blood-Glucose Meter (ConveneTOUCH ULTRA2 METER) USE DIRECTED blood sugar diagnostic (BLOOD GLUCOSE TEST) test strip Test blood sugar(s) 1 times daily. Dx: Type 2 DM - Uncontrolled E11.65 Insulin: No Lancets lancets Test blood sugar(s) 1 times daily. Dx: Type 2 DM - Uncontrolled E11.65 Insulin: No ipratropium-albuterol (DUONEB) 0.5 mg-3 mg(2.5 mg base)/3 mL nebu Inhale 3 mL as instructed four times daily. No current facility-administered medications for this visit. FAMILY HISTORY Problem Relation Age of Onset other (congestive heart failure) Mother other (CKD) Mother other (renal failure) Mother Ischemic Heart Disease Father Lung Cancer Maternal Grandfather Hypertension Daughter lung Social History Tobacco Use Smoking status: Every Day Current packs/day: 2.00 Average packs/day: 2.0 packs/day for 52.5 years (105.0 ttl pk-yrs) Types: Cigarettes Start date: 04/27/1972 Smokeless tobacco: Former Types: Snuff Tobacco comments: started smoking at age 11;cigarette; Amount: 20-39 cigs/day; 1 1/2 - 2 ppd x 43 years; Vaping Use Vaping status: Never Used Substance Use Topics Alcohol use: Yes Alcohol/week: 8.0 standard drinks of alcohol Types: 8 Cans of Beer (12oz) per week Drug use: Not Currently Types: Marijuana REVIEW OF SYSTEMS GENERAL: No weight loss, + malaise, no fevers/chills HEENT: + frequent whole head headaches, No changes in hearing or vision. NECK: Negative for lumps, goiter, pain and significant neck swelling- lipoma right RESPIRATORY: Alwa (more content not included)... Normal [facility] HbA1c (Bld)on 10-27-2024 Average glucose Estimated from glycated hemoglobin (Bld) [Mass/Vol] 166 mg/dL Normal [facility] Comment on above: Order Comment: Speci men Type: BLOOD SPECIMEN Ordering Facility: [facility] Address: [address] [place] [address] Result Comment: eAG: (Estimated average glucose) is a calculated value from HgbA1c and is customer field representative of the average blood glucose level in the last 2-3 month period. Performed By: #### 2 4331-1 #### [facility] CLIA [id number] [address] [place] [address] [place] [facility] CLIA [id number] [address] [place] [address] [place] HbA1c (Bld) [Mass fraction] 7.4 % High 4.3-5.6 [facility] Comment on above: Order Comment: Anat monique Type: BLOOD SPECIMEN Ordering Facility: [facility] Address: [address] [place] [address] Result Comment: Amer [place] Diabetes Association guidelines indicate that patients with HgbA1c in the range 5.7-6.4% are at increased risk for development of diabetes, and intervention by lifestyle modification may be beneficial. HgbA1c greater or equal to 6.5% is considered diagnostic of diabetes. Performed By: #### 2 4331-1 #### [facility] CLIA [id number] [address] [place] [address] [place] [facility] [id number] [address] [place] [address] [place] [facility] Magnesium [Mass/Vol] 2.0 mg/dL Normal 1.7-2.3 [facility] Comment on above: Order Comment: Speci men Type: BLOOD SPECIMEN Ordering Facility: [facility] Address: [address] [place] [address] Performed By: #### 2 4331-1 #### [facility] CLIA [id number] [address] [place] [address] [place] [facility] CLIA [id number] [address] [place] [address] [place] TSH SerPl-aCncon 10-27-2024 TSH Qn 3.340 m[IU]/L Normal 0.270-4.20 0 [facility] Comment on above: Order Comment: Speci men Type: BLOOD SPECIMEN Ordering Facility: [facility] Address: [address] [place] [address] Performed By: #### 2 4331-1 #### [facility] CLIA [id number] [address] [place] [address] [place] [facility] CLIA [id number] [address] [place] [address] [place] Vit B12 SerPl-mCncon 025 Cobalamin (Vitamin B12) [Mass/Vol] 301 pg/mL Normal 232-1245 [facility] Comment on above: Order Comment: Speci men Type: BLOOD SPECIMEN Ordering Facility: [facility] Address: [address] [place] [address] Performed By: #### 2 4331-1 #### [facility] CLIA [id number] [address] [place] [address] [place] [facility] CLIA [id number] [address] [place] [address] [place] CNOVon 10-17-2024 CNOV Office Visit (BEREKET ) CAROL NOLAN ([id number]) 1960 F Date Time Provider Department 10/17/24 2:20 PM RC DELACRUZ During your visit today, we recorded the following information about you: Pulse Blood pressure Weight 82/minute 148/89 133.4 kg Rc Delacruz MD 10/17/2024 2:09 PM Signed We will repeat an ultrasound of the carotids Rc Delacruz MD 10/17/2024 2:27 PM Signed [facility]AL CARDIOLOGY Cardiology ([facility]) [address] [facility] [id number] OUTPATIENT VISIT DATE 10/17/2024 PRIMARY CARE PHYSICIAN: Mac Olvera [address] [place] [address] HISTORY OF PRESENT ILLNESS: Ms. Nolan is a 63 year old morbidly obese woman with a history of coronary artery disease and prior coronary bypass grafting in 2015 subsequent coronary intervention of the right coronary artery in February 2019, hypertension, diabetes (hdn-gwdtpap-fteirhrhd), dyslipidemia, and ongoing smoking of 2 packs of cigarettes a day who presents for routine follow-up. Patient has been having difficulty due to poor dentition. She has been trying to find a dentist who will remove her teeth. She was told by a oral surgeon that she is developing child pulm complications. She has not had symptoms of chest pain or pressure. She has shortness of breath on exertion which is unchanged from prior. She has not had symptoms concerning for congestive heart failure including PND, orthopnea, or lower extremity edema. PAST MEDICAL HISTORY Diagnosis Date Arthritis Chronic back pain Cigarette smoker Colon polyps COPD (chronic obstructive pulmonary disease) (HCC) Coronary artery disease Diabetes (HCC) Diarrhea Essential hypertension Fatty liver ultra sound 2014 Hyperglycemia Hyperlipidemia Obesity Preinfarction syndrome (HCC) Tobacco abuse PAST SURGICAL HISTORY Procedure Laterality Date CABG (2) VEIN GRAFTS AND ARTERIAL GRAFT(S 10/17/2015 DELIVERY ONLY , low transverse CHOLECYSTECTOMY HX maybe 1989' COLONOSCOPY 11/27/2017 COLONOSCOPY FLX DX W/COLLJ SPEC WHEN PFRMD 05/17/2015 Colonoscopy [facility] outpt ESOPHAGOGASTRODUODENOSCOPY TRANSORAL DIAGNOSTIC 05/17/2015 EGD [facility] outpt HEART SURGERY HX JOINT REPLACEMENT HX ORTHOPEDICS SURGERY HX Left RCR PAST SURGICAL HISTORY OF Bilateral knee arthroscopy PAST SURGICAL HISTORY OF lumbar pain injections PAST SURGICAL HISTORY OF Repair tendon/muscle arm-left rotator cuff surgery TONSILLECTOMY AND ADENOIDECTOMY HX TONSILLECTOMY HX TOTAL KNEE REPLACEMENT right TUBAL LIGATION HX SOCIAL HISTORY Social History Tobacco Use Smoking status: Every Day Current packs/day: 2.00 Average packs/day: 2.0 packs/day for 52.5 years (104.9 ttl pk-yrs) Types: Cigarettes Start date: 04/27/1972 Smokeless tobacco: Former Types: Snuff Tobacco comments: started smoking at age 11;cigarette; Amount: 20-39 cigs/day; 1 1/2 - 2 ppd x 43 years; Vaping Use Vaping status: Never Used Substance Use Topics Alcohol use: Yes Alcohol/week: 8.0 standard drinks of alcohol Types: 8 Cans of Beer (12oz) per week Drug use: Not Currently Types: Marijuana FAMILY HISTORY Problem Relation Age of Onset other (congestive heart failure) Mother other (CKD) Mother other (renal failure) Mother Ischemic Heart Disease Father Lung Cancer Maternal Grandfather Hypertension Daughter lung ALLERGIES: ALLERGIES Allergen Reactions Penicillins Hives, Swelling Nickel Unknown Metal jewelry MEDICATIONS: metFORMIN ER (GLUCOPHAGE XR) 500 mg 24 hr tablet Take 3 tablets by mouth daily with breakfast. metoprolol succinate ER (TOPROL XL) 50 mg 24 hr tablet Take 1 tablet by mouth once daily. clopidogrel (PLAVIX) 75 mg tablet Take 1 tablet by mouth once daily. gabapentin (NEURONTIN) 300 mg capsule Take 1 capsule by mouth daily at bedtime for 180 days. mometasone-formoterol (DULERA) 200-5 mcg/actuation inhaler Inhale 1 Puff as instructed two times a day. DULoxetine (CYMBALTA) 30 mg capsule Take 1 capsule by mouth once daily. lisinopril (ZESTRIL) 40 mg tablet Take 1 tablet by mouth once daily. albuterol HFA (PROVENTIL HFA, VENTOLIN HFA) 90 mcg/actuation inhaler Inhale 2 Puffs as instructed every 6 hours as needed for wheezing/shortness of breath. Ibuprofen 200 mg cap Take by mouth every 6 hours as needed for pain. aspirin, enteric coated (ASPIRIN, ENTERIC COATED) 81 mg EC tablet Take 2 tablets by mouth once daily. rosuvastatin (CRESTOR) 40 mg tablet Take 1 tablet by mouth once daily. dulaglutide (TRULICITY) 0.75 mg/0.5 mL pen injector Inject 0.75 mg subcutaneously one time a week. Inject dose once per week. Discard Pen After Blood-Glucose Meter,Continuous (FREESTYLE GARDENIA 3 READER) [facility] Use as directed Blood-Glu (more content not included)... Normal [facility] 04-22-2024 ABIGAILN Telephone (PULMJ) EVENSSAMMYCAROL Arya ([id number]) 1960 F Date Time Provider Department 04/22/24 SHANITA POLK During your visit today, we recorded the following information about you: Shanita Polk APRN.CNP 04/22/2024 1:55 PM Signed Left message for pt to call back regarding results. PFT show mild obstruction with improvement with BD. Plan to offer daily maintenance inhaler and pulmonary consult. TAWNY Costello Melinda, APRN.CNP 05/26/2024 2:38 PM Signed [facility] message sent. Allergies As of Date: 04/22/2024 Noted Allergy Reaction PENICILLINS 08/01/2014 4 - Hives 7 - Swelling NICKEL 05/03/2015 16 - Unknown Comments: Metal jewelry Date Reviewed: 04/21/2024 Reviewed by: Ena Villegas MA - Fully Assessed Reason for Visit: Results [95] Prescriptions as of 05/26/2024 - mometasone-formoterol (DULERA) 200-5 mcg/actuation inhaler Inhale 1 Puff as instructed two times a day. - DULoxetine (CYMBALTA) 30 mg capsule Take 1 capsule by mouth once daily. - lisinopril (ZESTRIL) 40 mg tablet Take 1 tablet by mouth once daily. - metoprolol succinate ER (TOPROL XL) 50 mg 24 hr tablet Take 1 tablet by mouth once daily. - albuterol HFA (PROVENTIL HFA, VENTOLIN HFA) 90 mcg/actuation inhaler Inhale 2 Puffs as instructed every 6 hours as needed for wheezing/shortness of breath. - Ibuprofen 200 mg cap Take by mouth every 6 hours as needed for pain. - aspirin, enteric coated (ASPIRIN, ENTERIC COATED) 81 mg EC tablet Take 2 tablets by mouth once daily. - rosuvastatin (CRESTOR) 40 mg tablet Take 1 tablet by mouth once daily. - dulaglutide (TRULICITY) 0.75 mg/0.5 mL pen injector Inject 0.75 mg subcutaneously one time a week. Inject dose once per week. Discard Pen After - clopidogrel (PLAVIX) 75 mg tablet Take 1 tablet by mouth once daily. - gabapentin (NEURONTIN) 300 mg capsule Take 1 capsule by mouth daily at bedtime for 180 days. - Blood-Glucose Meter,Continuous (FREESTYLE GARDENIA 3 READER) [facility] Use as directed - Blood-Glucose Sensor (FREESTYLE GARDENIA 3 SENSOR) [facility] Use as directed. - metFORMIN ER (GLUCOPHAGE XR) 500 mg 24 hr tablet Take 3 tablets by mouth daily with breakfast. - nitroglycerin sublingual (NITROQUICK) 0.4 mg SL tablet Dissolve 1 tablet under the tongue as needed for chest pain. - Blood-Glucose Meter (ConveneTOUCH ULTRA2 METER) USE DIRECTED - blood sugar diagnostic (BLOOD GLUCOSE TEST) test strip Test blood sugar(s) 1 times daily. Dx: Type 2 DM - Uncontrolled E11.65 Insulin: No - Lancets lancets Test blood sugar(s) 1 times daily. Dx: Type 2 DM - Uncontrolled E11.65 Insulin: No - ipratropium-albuterol (DUONEB) 0.5 mg-3 mg(2.5 mg base)/3 mL nebu Inhale 3 mL as instructed four times daily. Problem List As Of Date 04/22/2024 Noted Resolved Chest pain [R07.9] 08/01/2014 05/31/2015 Shortness of breath [R06.02] 08/01/2014 08/18/2023 Abdominal pain [R10.9] 08/01/2014 12/01/2014 HTN (hypertension) [I10] 08/01/2014 Fever [R50.9] 08/03/2014 12/01/2014 Coronary artery disease involving upper [place] lino*08/31/2014 Palpitations [R00.2] 12/19/2014 Obesity [E66.9] 12/19/2014 01/19/2017 Diarrhea [R19.7] 01/19/2017 Skin tag [L91.8] 04/27/2015 01/19/2017 Tobacco abuse [Z72.0] 05/03/2015 01/19/2017 Tobacco use disorder [F17.200] 05/31/2015 Hyperglycemia [R73.9] 11/08/2015 Gross hematuria [R31.0] 09/18/2015 Adrenal nodule (HCC) [E27.9] 09/18/2015 Morbid obesity (HCC) [E66.01] 09/18/2015 Type 2 diabetes mellitus without complication (*11/08/2015 S/P CABG x 2 [Z95.1] 04/25/2016 Essential hypertension [I10] 04/25/2016 07/14/2018 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] 02/05/2018 Hoarseness [R49.0] 02/05/2018 08/18/2023 Obesity, Class III, BMI >= 40 [E66.01] 04/05/2018 08/18/2023 Other hyperlipidemia [E78.49] 12/17/2020 Carotid artery stenosis, asymptomatic, bilatera*12/02/2021 NSVT (nonsustained ventricular tachycardia) (HC*12/02/2021 Gastroesophageal reflux disease with esophagiti*11/28/2022 History of colonic polyps [Z86.0100] 11/28/2022 Obesity, Class III, BMI >= 40 [E66.01] 01/25/2024 Pre-operative cardiovascular examination [Z01.8*01/25/2024 Encounter Status:Closed by SHANITA POLK on 05/26/24 [facility] Lizzette 04-21-2024 CNOV Office Visit (FAMPWS ) CAROL NOLAN ([id number]) 1960 F Date Time Provider Department 04/21/24 10:40 AM LAURYN BALDWIN During your visit today, we recorded the following information about you: Pulse Respiration Blood pressure Weight 87/minute 14/minute 128/78 132 kg Lauryn Baldwin APRN.CNP 04/21/2024 12:50 PM Signed Chief Reason For Appointment Patient presents with: Recheck: 6 months Carol Nolan is a 63 year old female who presents for annual exam. Last office visit date: 11/09/2023 Accompanied By spouse, Chris Have you had any critical events, hospital stays, ER visits, surgeries or procedures since your last visit here in our office: No Specialists/Other Healthcare Providers Seen: Patient Care Team: Mac Olvera MD as PCP - General (Family Medicine) Nicole Rodríguez as Referring (Ent - Otolaryngology) Concerns today: None HPI No change in health Active Problems Teeth are loose Chronic back pain- entire back- lo back worst, sometimes down legs ACTIVE PROBLEM LIST Htn (Hypertension) - 08/01/2014 (D priority) Comment: - Patient BP is very high in the ED but she does not have a diagnosis of HTN - Will continue to monitor and depending of the cardiac work up patient might need antihypertensive - BP now stable - Toprol XL added for CAD Obesity, Class III, BMI >= 40 - 01/25/2024 Pre-Operative Cardiovascular Examination - 01/25/2024 Gastroesophageal Reflux Disease With Esophagitis Without Hemorrhage - 11/28/2022 History of Colonic Polyps - 11/28/2022 Carotid Artery Stenosis, Asymptomatic, Bilateral - 12/02/2021 Nsvt (Nonsustained Ventricular Tachycardia) ([facility]) - 12/02/2021 Other Hyperlipidemia - 12/17/2020 Vocal Cord Polyp - 02/05/2018 Comment: Added automatically from request for surgery [id number] 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 Unchanged on repeat. Morbid Obesity ([facility]) - 09/18/2015 Tobacco Use Disorder - 05/31/2015 Palpitations - 12/19/2014 Coronary Artery Disease Involving [place] Coronary Artery of [place] Heart Without Angina Pectoris - 08/31/2014 Comment: 10/03/19 admit [facility] unstable angina, COPD. Heart cath: LVEF 65%, elevated LVEDP; single vessel disease ORTIZ to LAD 75%, Cx <30%, widely patent [place] stents proximal, distal up to 50%. Start hydralazine 03/03/19 stented: LVEF 65%. Mid RCA 85% to 0%, prox RCA 75% to )%LAD 08/03/[address] Zachary Dodson: LM mild non-obstructive, short; LAD 60-70% focal stenosis at bifurcation diagonal branch; LCx 30%; RCA 60%; LVEDP 12mmHg, no DM: Reports overall feeling well. Medication side effects: No. Home sugar checks: Yes- runs around 120 Hypoglycemic spells: Yes. 42, 61- CGM triggers Watching diet: No. Unexpected weight loss: No. Polyuria, polydipsia: No. Vision Changes: No. , - eye exam done (small cataracts) Foot lesions or numbness or pain: No. ROS: REVIEW OF SYSTEMS Smokes 1/2 to 2 ppd for 53 years GENERAL: No weight loss, + malaise- lack of sleep, no fevers/chills HEENT: Negative for frequent or significant headaches, No changes in hearing or vision. NECK: Right lateral base of neck with large, soft mass RESPIRATORY: Persistent smoker's cough, no hemoptysis, + wheezing, + dyspnea or shortness of breath CARDIOVASCULAR: Ongoing but improved chest pain- not related to activity, + leg swelling- Graft harvest side, no orthopnea, Occ palpitations GI: + nausea, + vomiting a couple times a week she does not attribute , both diarrhea/constipation. No hematochezia/melena. No heartburn or reflux symptoms. : + dysuria, frequency or incontinence, no hematuria MUSCULOSKELETAL: Multiple joint pains- wide spread. SKIN: Negative for lesions, rash, and itching ENDOCRINE: Negative for cold or heat intolerance, polyuria, polydipsia and goiter NEURO: No history of headaches, syncope, paralysis, seizures or tremors MOOD: Negative for depression, anxiety, or suicidal ideation. PAST MEDICAL HISTORY Diagnosis Date Arthritis Chronic back pain Cigarette smoker Colon polyps COPD (chronic obstructive pulmonary disease) (HCC) Coronary artery disease Diabetes (HCC) Diarrhea Essential hypertension Fatty liver ultra sound 2015 Hyperglycemia Hyperlipidemia Obesity Preinfarction syndrome (HCC) Tobacco abuse PAST SURGICAL HISTORY Procedure Laterality Date CABG (2) VEIN GRAFTS AND ARTERIAL GRAFT(S 10/17/2015 DELIVERY ONLY , low transverse CHOLECYSTECTOMY HX maybe 1989' COLONOSCOPY 11/27/2017 COLONOSCOPY FLX DX W/COLLJ SPEC WHEN PFRMD 05/17/2015 Colonoscopy [facility] outpt ESOPHAGOGASTRODUODENOSCOPY TRANSORAL DIAGNOSTIC 05/17/2015 EGD WC (more content not included)... Normal [facility] ALBUMIN/CREATININE RATIO, UR INEon 04-18-2024 Albumin DL <= 20 mg/L (U) [Mass/Vol] 36.0 mg/L Normal [facility] Comment on above: Order Comment: Speci men Type: BLOOD SPECIMEN Ordering Facility: [facility] Address: [address] [place] [address] Performed By: #### 2 4331-1 #### [facility] CLIA [id number] [address] [place] [address] CLIA [id number] [address] [place] [address] [place] [facility] Albumin/Creatinine (U) [Mass ratio] 16 mg/g Normal <30 [facility] Comment on above: Order Comment: Speci men Type: BLOOD SPECIMEN Ordering Facility: [facility] Address: [address] [place] [address] Result Comment: Adul t Male and Female Nephrotic Criteria: <30 mg/g is considered normal to mildly increased 30-300 mg/g is considered moderately increased >300 mg/g is considered severely increased KDIGO. (2013). KDIGO 2012 Clinical Practice Guideline for the Evaluation and Management of Chronic Kidney Disease. Official Journal of the International Society of Nephrology, 3(1), 1-150. Performed By: #### 2 4331-1 #### [facility] CLIA [id number] [address] [place] [address] STATES OF [facility] CLIA [id number] [address] [place] [address] [place] Creatinine (U) [Mass/Vol] 231.6 mg/dL Normal 20.0-300.0 [facility] Comment on above: Order Comment: Speci men Type: BLOOD SPECIMEN Ordering Facility: [facility] Address: [address] [place] [address] Performed By: #### 2 4331-1 #### [facility] CLIA [id number] [address] [place] [address] [place] [facility] CLIA [id number] [address] [place] [address] [place] CBC W Auto Differential pane l (Bld)on 04-18-2024 Basophils (Bld) [#/Vol] 0.08 10*3/uL Normal <0.11 [facility] Comment on above: Order Comment: Speci men Type: BLOOD SPECIMEN Ordering Facility: [facility] Address: [address] [place] [address] Performed By: #### 2 4331-1 #### [facility] CLIA [id number] [address] [place] [address] [place] [facility] CLIA [id number] [address] [place] [address] [place] Basophils/100 WBC (Bld) 0.9 % Normal C [facility] Comment on above: Order Comment: Speci men Type: BLOOD SPECIMEN Ordering Facility: [facility] Address: [address] [place] [address] Performed By: #### 2 4331-1 #### [facility] CLIA [id number] [address] [place] [address] [place] [facility] CLIA [id number] [address] [place] [address] [place] Differential cell count method Nom (Bld) Auto Normal [facility] Comment on above: Order Comment: Speci men Type: BLOOD SPECIMEN Ordering Facility: [facility] Address: [address] [place] [address] Performed By: #### 2 4331-1 #### [facility] CLIA [id number] [address] [place] [address] [place] [facility] CLIA [id number] [address] [place] [address] [place] Eosinophils (Bld) [#/Vol] 0.15 10*3/uL Normal <0.46 [facility] Comment on above: Order Comment: Speci men Type: BLOOD SPECIMEN Ordering Facility: [facility] Address: [address] [place] [address] Performed By: #### 2 4331-1 #### [facility] CLIA [id number] [address] [place] [address] [place] [facility] CLIA [id number] [address] [place] [address] [place] Eosinophils/100 WBC (Bld) 1.7 % Normal [facility] Comment on above: Order Comment: Speci men Type: BLOOD SPECIMEN Ordering Facility: [facility] Address: [address] [place] [address] Performed By: #### 2 4331-1 #### [facility] CLIA [id number] [address] [place] [address] [place] [facility] CLIA [id number] [address] [place] [address] [place] Erythrocyte distribution width (RBC) [Ratio] 13.0 % Normal 11.5-15.0 [facility] Comment on above: Order Comment: Speci men Type: BLOOD SPECIMEN Ordering Facility: [facility] Address: [address] [place] [address] Performed By: #### 2 4331-1 #### [facility] CLIA [id number] [address] [place] [address] [place] [facility] CLIA [id number] [address] [place] [address] [place] Hematocrit (Bld) [Volume fraction] 48.3 % High 36.0-46.0 [facility] Comment on above: Order Comment: Speci men Type: BLOOD SPECIMEN Ordering Facility: [facility] Address: [address] [place] [address] Performed By: #### 2 4331-1 #### [facility] CLIA [id number] [address] [place] [address] [place] [facility] CLIA [id number] [address] [place] [address] [place] Hemoglobin (Bld) [Mass/Vol] 16.3 g/dL High 11.5-15.5 [facility] Comment on above: Order Comment: Speci men Type: BLOOD SPECIMEN Ordering Facility: [facility] Address: [address] [place] [address] Performed By: #### 2 4331-1 #### [facility] CLIA [id number] [address] [place] [address] [place] [facility] CLIA [id number] [address] [place] [address] [place] Immature granulocytes (Bld) [#/Vol] 10*3/uL Normal <0.10 [facility] Comment on above: Order Comment: Speci men Type: BLOOD SPECIMEN Ordering Facility: [facility] Address: [address] [place] [id number] Performed By: #### 2 4331-1 #### [facility] CLIA [id number] [address] [place] [address] [place] [facility] CLIA [id number] [address] [place] [address] [place] Immature granulocytes/100 WBC (Bld) 0.2 % Normal [facility] Comment on above: Order Comment: Speci men Type: BLOOD SPECIMEN Ordering Facility: [facility] Address: [address] [place] [address] Performed By: #### 2 4331-1 #### [facility] CLIA [id number] [address] [place] [address] [place] [facility] CLIA [id number] [address] [place] [address] [place] Lymphocytes (Bld) [#/Vol] 3.53 10*3/uL Normal 1.00-4.00 [facility] Comment on above: Order Comment: Speci men Type: BLOOD SPECIMEN Ordering Facility: [facility] Address: [address] [place] [address] Performed By: #### 2 4331-1 #### [facility] CLIA [id number] [address] [place] [address] [place] [facility] CLIA [id number] [address] [place] [address] [place] Lymphocytes/100 WBC (Bld) 39.2 % Normal [facility] Comment on above: Order Comment: Speci men Type: BLOOD SPECIMEN Ordering Facility: [facility] Address: [address] [place] [address] Performed By: #### 2 4331-1 #### [facility] CLIA [id number] [address] [place] [address] [place] [facility] CLIA [id number] [address] [place] [address] [place] MCH (RBC) [Entitic mass] 31.2 pg Normal 26.0-34.0 [facility] Comment on above: Order Comment: Speci men Type: BLOOD SPECIMEN Ordering Facility: [facility] Address: [address] [place] [address] Performed By: #### 2 4331-1 #### [facility] CLIA [id number] [address] [place] [address] [place] [facility] CLIA [id number] [address] [place] [address] [place] MCHC (RBC) [Mass/Vol] 33.7 g/dL Normal 30.5-36.0 [facility] Comment on above: Order Comment: Speci men Type: BLOOD SPECIMEN Ordering Facility: [facility] Address: [address] [place] [address] Performed By: #### 2 4331-1 #### [facility] CLIA [id number] [address] [place] [address] [place] [facility] CLIA [id number] [address] [place] [address] [place] MCV (RBC) [Entitic vol] 92.5 fL Normal 80.0-100.0 C [facility] Comment on above: Order Comment: Speci men Type: BLOOD SPECIMEN Ordering Facility: [facility] Address: [address] [place] [address] Performed By: #### 2 4331-1 #### [facility] CLIA [id number] [address] [place] [address] [place] [facility] CLIA [id number] [address] [place] [address] [place] Monocytes (Bld) [#/Vol] 0.72 10*3/uL Normal <0.87 [facility] Comment on above: Order Comment: Speci men Type: BLOOD SPECIMEN Ordering Facility: [facility] Address: [address] [place] [address] Performed By: #### 2 4331-1 #### [facility] CLIA [id number] [address] [place] [address] [place] [facility] CLIA [id number] [address] [place] [address] [place] Monocytes/100 WBC (Bld) 8.0 % Normal [facility] Comment on above: Order Comment: Speci men Type: BLOOD SPECIMEN Ordering Facility: [facility] Address: [address] [place] [address] Performed By: #### 2 4331-1 #### [facility] CLIA [id number] [address] [place] [address] [place] [facility] CLIA [id number] [address] [place] [address] [place] Neutrophils (Bld) [#/Vol] 4.51 10*3/uL Normal 1.45-7.50 [facility] Comment on above: Order Comment: Speci men Type: BLOOD SPECIMEN Ordering Facility: [facility] Address: [address] [place] [address] Performed By: #### 2 4331-1 #### [facility] CLIA [id number] [address] [place] [address] [place] [facility] CLIA [id number] [address] [place] [address] [place] Neutrophils/100 WBC (Bld) 50.0 % Normal [facility] Comment on above: Order Comment: Speci men Type: BLOOD SPECIMEN Ordering Facility: [facility] Address: [address] [place] [address] Performed By: #### 2 4331-1 #### [facility] CLIA [id number] [address] [place] [address] [place] [facility] CLIA [id number] [address] [place] [address] [place] Nucleated RBC (Bld) [#/Vol] 10*3/uL Normal <0.01 [facility] Comment on above: Order Comment: Speci men Type: BLOOD SPECIMEN Ordering Facility: [facility] Address: [address] [place] [address] Performed By: #### 2 4331-1 #### [facility] CLIA [id number] [address] [place] [address] [place] [facility] [id number] [address] [place] [address] [place] Nucleated RBC/100 WBC (Bld) [Ratio] 0.0 /100 WBC Normal [facility] Comment on above: Order Comment: Speci men Type: BLOOD SPECIMEN Ordering Facility: [facility] Address: [address] [place] [address] Performed By: #### 2 4331-1 #### [facility] CLIA [id number] [address] [place] [address] [place] [facility] [id number] [address] [place] [address] [place] Platelet mean volume (Bld) [Entitic vol] 9.4 fL Normal 9.0-12.7 [facility] Comment on above: Order Comment: Speci men Type: BLOOD SPECIMEN Ordering Facility: [facility] Address: [address] [place] [address] Performed By: #### 2 4331-1 #### [facility] CLIA [id number] [address] [place] [address] [place] [facility] CLIA [id number] [address] [place] [address] [place] Platelets (Bld) [#/Vol] 201 10*3/uL Normal 150-400 [facility] Comment on above: Order Comment: Speci men Type: BLOOD SPECIMEN Ordering Facility: [facility] Address: [address] [place] [address] Performed By: #### 2 4331-1 #### [facility] CLIA [id number] [address] [place] [address] [place] [facility] CLIA [id number] [address] [place] [address] [place] RBC (Bld) [#/Vol] 5.22 10*6/uL High 3.90-5.20 [facility] Comment on above: Order Comment: Speci men Type: BLOOD SPECIMEN Ordering Facility: [facility] Address: [address] [place] [address] Performed By: #### 2 4331-1 #### [facility] CLIA [id number] [address] [place] [address] [place] [facility] CLIA [id number] [address] [place] [address] [place] WBC (Bld) [#/Vol] 9.01 10*3/uL Normal 3.70-11.00 [facility] Comment on above: Order Comment: Speci men Type: BLOOD SPECIMEN Ordering Facility: [facility] Address: [address] [place] [address] Performed By: #### 2 4331-1 #### [facility] CLIA [id number] [address] [place] [address] [place] [facility] CLIA [id number] [address] [place] [address] [place] CNOVon 04-18-2024 CNOV Office Visit (PULMWS ) CAROL NOLAN ([id number]) 1960 F Date Time Provider Department 04/18/24 11:00 AM HARPSSHANITA KELLER During your visit today, we recorded the following information about you: Pulse Respiration Blood pressure Weight 80/minute 14/minute 134/84 132.5 kg Height 1.655 m Shanita Polk APRN.CNP 04/18/2024 3:16 PM Signed Chief Complaint: 6 mos follow-up from LDCT scan dated 09/30/2023 for LUNG RADS Category 3s finding of new 4.1 mm MARY. History of Present Illness: Carol Nolan is a 63 year old female who is presenting today for pulmonary nodule follow-up. Nodule was found through lung cancer screening on LDCT. Patient has a PMH significant for CAD, HTN, CABG x 2. Patient is a current smoker with a 104 pack year history. Currently still smoking 1.5 packs daily. Since the patient's last visit the patient has not had new medical issues or hospitalizations. No recent respiratory infections/pneumonia. The patient does not require assistance with normal activities of daily living. Has limitations in activity due to back pain. Modified Medical Research [place] Dyspnea Scale (MMRC) On level ground I walk slower than people of the same age because of breathlessness, or have to stop for breath when walking at my own pace 2 Patient has SOB with their daily activity. No wheezing or dyspnea. Patient denies feeling of chest tightness/congestion in the chest. Patient does not have a new or concerning cough, and denies hemoptysis. Patient does have a chronic daily cough. Denies regular or recent fevers/chills. Patient does not have any significant unintentional weight loss. Patient denies having any respiratory infections or COVID-19 in the past few months. Last 12 Encounter Wt Readings: Date: Wt: 04/18/2024 132.5 kg (292 lb) 04/18/2024 132.5 kg (292 lb) 01/25/2024 131.5 kg (290 lb) 11/09/2023 131.1 kg (289 lb) 09/14/2023 130.3 kg (287 lb 4.8 oz) 08/18/2023 130.6 kg (288 lb) 05/06/2023 130.6 kg (288 lb) 11/14/2022 132 kg (291 lb) 10/31/2022 132.4 kg (291 lb 12.8 oz) 09/30/2022 133.8 kg (295 lb) 06/30/2022 135.6 kg (299 lb) 12/02/2021 134.3 kg (296 lb) Medication Treatment: Are you using regular inhalers?: NA Past Medical History: PAST MEDICAL HISTORY Diagnosis Date Arthritis Chronic back pain Cigarette smoker Colon polyps COPD (chronic obstructive pulmonary disease) (HCC) Coronary artery disease Diabetes (HCC) Diarrhea Essential hypertension Fatty liver ultra sound 2014 Hyperglycemia Hyperlipidemia Obesity Preinfarction syndrome (HCC) Tobacco abuse Surgical Hx: PAST SURGICAL HISTORY Procedure Laterality Date CABG (2) VEIN GRAFTS AND ARTERIAL GRAFT(S 10/17/2015 DELIVERY ONLY , low transverse CHOLECYSTECTOMY HX maybe 1989' COLONOSCOPY 11/27/2017 COLONOSCOPY FLX DX W/COLLJ SPEC WHEN PFRMD 05/17/2015 Colonoscopy [facility] outpt ESOPHAGOGASTRODUODENOSCOPY TRANSORAL DIAGNOSTIC 05/17/2015 EGD [facility] outpt HEART SURGERY HX JOINT REPLACEMENT HX ORTHOPEDICS SURGERY HX Left RCR PAST SURGICAL HISTORY OF Bilateral knee arthroscopy PAST SURGICAL HISTORY OF lumbar pain injections PAST SURGICAL HISTORY OF Repair tendon/muscle arm-left rotator cuff surgery TONSILLECTOMY AND ADENOIDECTOMY HX TONSILLECTOMY HX TOTAL KNEE REPLACEMENT right TUBAL LIGATION HX Family Hx: FAMILY HISTORY Problem Relation Age of Onset other (congestive heart failure) Mother other (CKD) Mother other (renal failure) Mother Ischemic Heart Disease Father Lung Cancer Maternal Grandfather Hypertension Daughter lung Allergies: ALLERGIES Allergen Reactions Penicillins Hives, Swelling Nickel Other: See Comments Metal jewelry Social History Tobacco Use: 2 packs/day, for 43 years. Types: Cigarettes Review Of Systems: See HPI for ROS All of the remainder systems were reviewed and negative. PHYSICAL EXAMINATION: BP 134/84 Pulse 80 Resp 14 Ht 5' 5.16 (1.66m) Wt 292 lb (132.5kg) SpO2 96% BMI 48.36 kg/(m2). General appearance: well appearing, morbidly obese, in no acute distress, and alert Skin: skin color, texture, turgor normal, no rashes or lesions Neck: Supple, no adenopathy; thyroid symmetric, normal size Respiratory: lungs clear to auscultation no wheezing or rhonchi Cardiovascular: Negative. RRR without murmur, gallop, or rubs. No ectopy Musculoskeletal: Extremities normal. No deformities, edema, or skin discoloration. Neuro: Oriented X 3 Data Review I have visually reviewed imaging and testing below CT imaging done today was reviewed and analyzed independently by practitioner and awaiting radiology review. CT was compared to prior CT chest. Prior PFTS: SPIROMETRY WITH DILATOR IF OBSTRUCTED ([id number]) - ordered on 03/02/19 [facility] [address] (more content not included)... Normal [facility] CT LUNG FOLLOWUP WO IVCONon 04-18-2024 CT LUNG FOLLOWUP WO IVCON * * *Final Report* * * DATE OF EXAM: Apr 18 2024 9:58AM [facility] 0561 - CT LUNG FOLLOWUP WO IVCON / PROCEDURE REASON: Lung nodules * * * * Physician Interpretation * * * * EXAMINATION: CT LUNG FOLLOWUP WO IVCON CLINICAL HISTORY: Smoking, pulmonary nodules Technique: Spiral CT acquisition of the chest from the thoracic inlet to the upper abdomen without contrast. MQ: [id number]_6 Followup LDCT Patient characteristics: * Orgi-ev-Cszdy: 1960; Age at exam: 63 years * Gender: Female * Lung Disease: Asymptomatic (no signs or symptoms of lung disease) * Number of Pack Years: 52 * Current smoker (=0) or Number of Years since Quit: 0 * Ordering provider and NPI: SHANITA POLK [id number] * Interpreting radiologist and NPI: Sandra [id number] Exam acquisition parameters: * Exam Date: 04/18/2024 9:58 AM * Site: [facility] * * CT System Drill Press Operator: Siemens * CT System Model: Sensation * Tube Current-Time (mA-sec): 42 * Peak Voltage (kV): 120V * Scan Time (sec): 11.04 * Scan Volume (z-length, cm): -29.40 * Pitch: 0.75 * Slice Thickness (mm): 1.5 * CT Dose-Length Product: 126 mGy*cm * CT Dose Index: 3.27mGy * CT Dose Reduction Method: Automated exposure control(AEC) and iterative recon COMPARISON: Chest CT exams dated 09/30/2023 and 01/22/2021 RESULT: Are nodules present? Yes, 1-5 nodules Nodule 1: This Solid nodule is located in the Left Lower Lobe on slice number 227 with an average diameter of 6.6 mm (7.8 mm x 5.3 mm). Unchanged since 09/30/2023. Nodule 2: This Solid nodule is located in the Right Upper Lobe on slice number 93 with an average diameter of 3.8 mm (5.1 mm x 2.4 mm). Unchanged since 09/30/2023. Nodule 3: This Solid nodule is located in the Right Upper Lobe on slice number 115 with an average diameter of 3.6 mm (4.0 mm x 3.2 mm). Unchanged since 09/30/2023. Nodule 4: This Solid nodule is located in the Left Upper Lobe on slice number 49 with an average diameter of 3.3 mm (4.2 mm x 2.4 mm). Unchanged since 09/30/2023. Nodule 5: This Solid nodule is located in the Right Middle Lobe on slice number 187 with an average diameter of 2.9 mm (3.5 mm x 2.2 mm). Unchanged since 09/30/2023. Other lung nodule comments: The 4 mm left upper lobe pulmonary nodule seen on image 69 of the prior chest CT from 09/30/2023 has nearly resolved, measuring 1-2 mm on the current exam, image 57. The 3 mm right middle lobe pulmonary nodule seen on image 184 of the prior chest CT has also resolved. Other findings: There is mild upper lobe predominant centrilobular emphysema, which is associated with bronchial wall thickening. No enlarged thoracic lymph nodes. Mild atherosclerosis is present within the thoracic area which is nondilated. The patient is status post median sternotomy for CABG. There are moderate to severe upper [place] coronary artery atherosclerotic calcifications, however, this exam is not optimized for coronary artery is assessment. There is lipomatous hypertrophy of the interatrial septum. No abnormality identified within the imaged solid abdominal organs on this noncontrast exam. Cholecystectomy clips are noted. Sternal wires remain in place. Mild diastases of the sternum is unchanged. No destructive lytic or blastic bone lesion. Multilevel endplate degenerative changes are present throughout the imaged spine. Emphysema: Mild (5-25%), Centrilobular, Upper lobe Coronary Artery Calcifications: Circumflex Mild; Left Anterior Descending Severe; Right Coronary Severe Incidental coronary calcium as automatically processed and calculated using AI: Total Coronary Calcium Score = [100+] Agatston Units Percentile Rank (age and gender matched relative to reference population): [75th-100th] percentile* [* [email or web address] calcium/input.aspx] Localizer images: No additional findings. IMPRESSION: LungRADS category: 2 S LungRADS modifier: Significant other (S), coronary artery calcification, moderate or severe LungRADS 0 reason: n/a Recommendations: Continue annual screening with LDCT in 12 months. Other actionable findings: Reference: [employer]. Lung CT Screening Reporting and Data System (Lung-RADS). Available at: http://www.acr.org/Quality- Safety/Resources/LungRADS Enterprise Data Architect: APARNA Transcribe Date/Time: Apr 18 2024 3:51P Dictated by : BILL FISHMAN MD This examination was interpreted and the report reviewed and electronically signed by: BILL FISHMAN MD on Apr 18 2024 4:14PM EST [id number] Normal [facility] CT Lung parenchyma WO contra ston 04-18-2024 IMPRESSION: LungRADS category: 2 S LungRADS modifier: Significant other (S), coronary artery calcification, moderate or severe LungRADS 0 reason: n/a Recommendations: Continue annual screening with LDCT in 12 months. Other actionable findings: Reference: [employer]. Lung CT Screening Reporting and Data System (Lung-RADS). Available at: http://www.acr.org/Quality- Safety/Resources/LungRADS Enterprise Data Architect: APARNA Transcribe Date/Time: Apr 18 2024 3:51P Dictated by : BILL FISHMAN MD This examination was interpreted and the report reviewed and electronically signed by: BILL FISHMAN MD on Apr 18 2024 4:14PM [facility] DIVISION OF RADIOLOGY * * *Final Report* * * DATE OF EXAM: Apr 18 2024 9:58AM [facility] 0561 - CT LUNG FOLLOWUP [facility] / PROCEDURE REASON: Lung nodules * * * * Physician Interpretation * * * * [facility]AMIN[facility]: Smoking, pulmonary nodules Technique: Spiral CT acquisition of the chest from the thoracic inlet to the upper abdomen without contrast. MQ: CTLCS_6 Followup LDCT Patient characteristics: * Zasm-hw-Mnekf: 1960; Age at exam: 63 years * Gender: Female * Lung Disease: Asymptomatic (no signs or symptoms of lung disease) * Number of Pack Years: 52 * Current smoker (=0) or Number of Years since Quit: 0 * Ordering provider and NPI: SHANITA POLK [id number] * Interpreting radiologist and NPI: Sandra [id number] Exam acquisition parameters: * Exam Date: 04/18/2024 9:58 AM * Site: [facility] * * CT System Drill Press Operator: Siemens * CT System Model: Sensation * Tube Current-Time (mA-sec): 42 * Peak Voltage (kV): 120V * Scan Time (sec): 11.04 * Scan Volume (z-length, cm): -29.40 * Pitch: 0.75 * Slice Thickness (mm): 1.5 * CT Dose-Length Product: 126 mGy*cm * CT Dose Index: 3.27mGy * CT Dose Reduction Method: Automated exposure control(AEC) and iterative recon COMPARISON: Chest CT exams dated 09/30/2023 and 01/22/2021 RESULT: Are nodules present? Yes, 1-5 nodules Nodule 1: This Solid nodule is located in the Left Lower Lobe on slice number 227 with an average diameter of 6.6 mm (7.8 mm x 5.3 mm). Unchanged since 09/30/2023. Nodule 2: This Solid nodule is located in the Right Upper Lobe on slice number 93 with an average diameter of 3.8 mm (5.1 mm x 2.4 mm). Unchanged since 09/30/2023. Nodule 3: This Solid nodule is located in the Right Upper Lobe on slice number 115 with an average diameter of 3.6 mm (4.0 mm x 3.2 mm). Unchanged since 09/30/2023. Nodule 4: This Solid nodule is located in the Left Upper Lobe on slice number 49 with an average diameter of 3.3 mm (4.2 mm x 2.4 mm). Unchanged since 09/30/2023. Nodule 5: This Solid nodule is located in the Right Middle Lobe on slice number 187 with an average diameter of 2.9 mm (3.5 mm x 2.2 mm). Unchanged since 09/30/2023. Other lung nodule comments: The 4 mm left upper lobe pulmonary nodule seen on image 69 of the prior chest CT from 09/30/2023 has nearly resolved, measuring 1-2 mm on the current exam, image 57. The 3 mm right middle lobe pulmonary nodule seen on image 184 of the prior chest CT has also resolved. Other findings: There is mild upper lobe predominant centrilobular emphysema, which is associated with bronchial wall thickening. No enlarged thoracic lymph nodes. Mild atherosclerosis is present within the thoracic area which is nondilated. The patient is status post median sternotomy for CABG. There are moderate to severe upper mattaponi coronary artery atherosclerotic calcifications, however, this exam is not optimized for coronary artery is assessment. There is lipomatous hypertrophy of the interatrial septum. No abnormality identified within the imaged solid abdominal organs on this noncontrast exam. Cholecystectomy clips are noted. Sternal wires remain in place. Mild diastases of the sternum is unchanged. No destructive lytic or blastic bone lesion. Multilevel endplate degenerative changes are present throughout the imaged spine. Emphysema: Mild (5-25%), Centrilobular, Upper lobe Coronary Artery Calcifications: Circumflex Mild; Left Anterior Descending Severe; Right Coronary Severe Incidental coronary calcium as automatically processed and calculated using AI: Total Coronary Calcium Score = [100+] Agatston Units Percentile Rank (age and gender matched relative to reference population): [75th-100th] percentile* [* [email or web address] calcium/input.aspx] Localizer images: No additional findings. DIVISION OF RADIOLOGY Provider, [facility] - 04/18/2024 * * *Final Report* * * DATE OF EXAM: Apr 18 2024 9:58AM [facility] 0561 - CT LUNG FOLLOWUP [facility] / PROCEDURE REASON: Lung nodules * * * * Physician Interpretation * * * * [facility]AMINATION: [facility] CL[facility]ORY: Smoking, pulmonary nodules Technique: Spiral CT acquisition of the chest from the thoracic inlet to the upper abdomen without contrast. MQ: CTLCS_6 Followup LDCT Patient characteristics: * Ougq-hw-Jywsl: 1960; Age at exam: 63 years * Gender: Female * Lung Disease: Asymptomatic (no signs or symptoms of lung disease) * Number of Pack Years: 52 * Current smoker (=0) or Number of Years since Quit: 0 * Ordering provider and NPI: SHANITA POLK [id number] * Interpreting radiologist and NPI: Sandra [id number] Exam acquisition parameters: * Exam Date: 04/18/2024 9:58 AM * Site: [facility] * * CT System Drill Press Operator: [employer] * CT System Model: Sensation * Tube Current-Time (mA-sec): 42 * Peak Voltage (kV): 120V * Scan Time (sec): 11.04 * Scan Volume (z-length, cm): -29.40 * Pitch: 0.75 * Slice Thickness (mm): 1.5 * CT Dose-Length Product: 126 mGy*cm * CT Dose Index: 3.27mGy * CT Dose Reduction Method: Automated exposure control(AEC) and iterative recon COMPARISON: Chest CT exams dated 09/30/2023 and 01/22/2021 RESULT: Are nodules present? Yes, 1-5 nodules Nodule 1: This Solid nodule is located in the Left Lower Lobe on slice number 227 with an average diameter of 6.6 mm (7.8 mm x 5.3 mm). Unchanged since 09/30/2023. Nodule 2: This Solid nodule is located in the Right Upper Lobe on slice number 93 with an average diameter of 3.8 mm (5.1 mm x 2.4 mm). Unchanged since 09/30/2023. Nodule 3: This Solid nodule is located in the Right Upper Lobe on slice number 115 with an average diameter of 3.6 mm (4.0 mm x 3.2 mm). Unchanged since 09/30/2023. Nodule 4: This Solid nodule is located in the Left Upper Lobe on slice number 49 with an average diameter of 3.3 mm (4.2 mm x 2.4 mm). Unchanged since 09/30/2023. Nodule 5: This Solid nodule is located in the Right Middle Lobe on slice number 187 with an average diameter of 2.9 mm (3.5 mm x 2.2 mm). Unchanged since 09/30/2023. Other lung nodule comments: The 4 mm left upper lobe pulmonary nodule seen on image 69 of the prior chest CT from 09/30/2023 has nearly resolved, measuring 1-2 mm on the current exam, image 57. The 3 mm right middle lobe pulmonary nodule seen on image 184 of the prior chest CT has also resolved. Other findings: There is mild upper lobe predominant centrilobular emphysema, which is associated with bronchial wall thickening. No enlarged thoracic lymph nodes. Mild atherosclerosis is present within the thoracic area which is nondilated. The patient is status post median sternotomy for CABG. There are moderate to severe upper mattaponi coronary artery atherosclerotic calcifications, however, this exam is not optimized for coronary artery is assessment. There is lipomatous hypertrophy of the interatrial septum. No abnormality identified within the imaged solid abdominal organs on this noncontrast exam. Cholecystectomy clips are noted. Sternal wires remain in place. Mild diastases of the sternum is unchanged. No destructive lytic or blastic bone lesion. Multilevel endplate degenerative changes are present throughout the imaged spine. Emphysema: Mild (5-25%), Centrilobular, Upper lobe Coronary Artery Calcifications: Circumflex Mild; Left Anterior Descending Severe; Right Coronary Severe Incidental coronary calcium as automatically processed and calculated using AI: Total Coronary Calcium Score = [100+] Agatston Units Percentile Rank (age and gender matched relative to reference population): [75th-100th] percentile* [* [email or web address] calcium/input.aspx] Localizer images: No additional findings. IMPRESSION IMPRESSION: LungRADS category: 2 S LungRADS modifier: Significant other (S), coronary artery calcification, moderate or severe LungRADS 0 reason: n/a Recommendations: Continue annual screening with LDCT in 12 months. Other actionable findings: Reference: [employer]. Lung CT Screening Reporting and Data System (Lung-RADS). Available at: http://www.acr.org/Quality- Safety/Resources/LungRADS Enterprise Data Architect: APARNA Transcribe Date/Time: Apr 18 2024 3:51P Dictated by : BILL FISHMAN MD This examination was interpreted and the report reviewed and electronically signed by: BILL FISHMAN MD on Apr 18 2024 4:14PM [facility] Radiology [facility]ative[facility] Lung parenchyma WO contra stOrdered By: Ccf Provider on 04-18-2024 [facility] Comprehensive metabolic 2000 panelon 04-18-2024 Albumin [Mass/Vol] 4.4 g/dL Normal 3.9-4.9 [facility] Comment on above: Order Comment: Speci kayden Type: BLOOD SPECIMEN Ordering Facility: [facility] Address: [address] [place] [address] Performed By: #### 2 4331-1 #### [facility] CLIA [id number] [address] [place] [address] [facility] [id number] [address] [place] [address] OF [facility] ALP [Catalytic activity/Vol] 48 U/L Normal 34-123 [facility] Comment on above: Order Comment: Anat monique Type: BLOOD SPECIMEN Ordering Facility: [facility] Address: [address] [place] [address] Performed By: #### 2 4331-1 #### [facility] CLIA [id number] [address] [place] [address] [place] [facility] CLIA [id number] [address] [place] [address] [place] ALT [Catalytic activity/Vol] 44 U/L High 7-38 [facility] Comment on above: Order Comment: Speci men Type: BLOOD SPECIMEN Ordering Facility: [facility] Address: [address] [place] [address] Performed By: #### 2 4331-1 #### [facility] CLIA [id number] [address] [place], [place] [id number] [place] [facility] CLIA [id number] [address] [place] [address] [place] Anion gap [Moles/Vol] 12 mmol/L Normal 8-15 [facility] Comment on above: Order Comment: Speci men Type: BLOOD SPECIMEN Ordering Facility: [facility] Address: [address] [place] [address] Performed By: #### 2 4331-1 #### [facility] CLIA [id number] [address] [place] [address] [place] [facility] CLIA [id number] [address] [place] [address] [place] AST [Catalytic activity/Vol] 37 U/L High 13-35 [facility] Comment on above: Order Comment: Speci men Type: BLOOD SPECIMEN Ordering Facility: [facility] Address: [address] [place] [address] Performed By: #### 2 4331-1 #### [facility] CLIA [id number] [address] [place] [address] [place] [facility] CLIA [id number] [address] [place] [address] [place] Bilirubin [Mass/Vol] 0.8 mg/dL Normal 0.2-1.3 [facility] Comment on above: Order Comment: Speci men Type: BLOOD SPECIMEN Ordering Facility: [facility] Address: [address] [place] [address] Performed By: #### 2 4331-1 #### [facility] CLIA [id number] [address] [id number] [place] [facility] CLIA [id number] [address] [place] [address] [place] Calcium [Mass/Vol] 9.6 mg/dL Normal 8.5-10.2 [facility] Comment on above: Order Comment: Speci men Type: BLOOD SPECIMEN Ordering Facility: [facility] Address: [address] [place] [address] Performed By: #### 2 4331-1 #### [facility] CLIA [id number] [address] [place] [address] [place] [facility] CLIA [id number] [address] [place] [address] [place] Chloride [Moles/Vol] 102 mmol/L Normal 98-107 [facility] Comment on above: Order Comment: Speci men Type: BLOOD SPECIMEN Ordering Facility: [facility] Address: [address] [id number] Performed By: #### 2 4331-1 #### [facility] CLIA [id number] [address] [place] [address] [place] [facility] CLIA [id number] [address] [place] [address] [place] CO2 [Moles/Vol] 23 mmol/L Normal 22-30 [facility] Comment on above: Order Comment: Speci men Type: BLOOD SPECIMEN Ordering Facility: [facility] Address: [address] [id number] Performed By: #### 2 4331-1 #### [facility] CLIA [id number] [address] [place], [place] [address] [place] [facility] CLIA [id number] [address] [place] [address] [place] Creatinine [Mass/Vol] 0.71 mg/dL Normal 0.58-0.96 [facility] Comment on above: Order Comment: Anat monique Type: BLOOD SPECIMEN Ordering Facility: [facility] Address: [address] [place] [address] Performed By: #### 2 4331-1 #### [facility] CLIA [id number] [address] [place] [address] [place] [facility] CLIA [id number] [address] [place] [address] [facility] Creatinine and Glomerular filtration rate.predicted panel (S/P/Bld) 94 mL/min/1.73m??? Normal >=60 [facility] Comment on above: Order Comment: Anat monique Type: BLOOD SPECIMEN Ordering Facility: [facility] Address: [address] [place] [address] Result Comment: Simi mated Glomerular Filtration Rate (eGFR) is calculated using the 2020 CKD-EPI creatinine equation. This equation utilizes serum creatinine, sex, and age as parameters. The creatinine assay has traceable calibration to isotope dilution-mass spectrometry. Refer to KDIGO guidelines for clinical interpretation. In patients with unstable renal function, e.g. those with acute kidney injury, the eGFR may not accurately reflect actual GFR. Performed By: #### 2 4331-1 #### [facility] CLIA [id number] [address] [place] [address] [place] [facility] CLIA [id number] [address] [place] [address] [place] Glucose [Mass/Vol] 158 mg/dL High 74-99 [facility] Comment on above: Order Comment: Anat monique Type: BLOOD SPECIMEN Ordering Facility: [facility] Address: [address] [place] [address] Result Comment: The [place] [employer] (ADA) provides guidance for cutoff values for fasting glucose and random glucose. The ADA defines fasting as no caloric intake for at least 8 hours. Fasting plasma glucose results between 100 to 125 mg/dL indicate increased risk for diabetes (prediabetes). Fasting plasma glucose results greater than or equal to 126 mg/dL meet the criteria for diagnosis of diabetes. In the absence of unequivocal hyperglycemia, results should be confirmed by repeat testing. In a patient with classic symptoms of hyperglycemia or hyperglycemic crisis, random plasma glucose results greater than or equal to 200 mg/dL meet the criteria for diagnosis of diabetes. Reference: Standards of Medical Care in Diabetes 2016, [place] [employer]. Diabetes Care. 2016.39(Suppl 1). Performed By: #### 2 4331-1 #### [facility] CLIA [id number] [address] [place] [address] [place] [facility] CLIA [id number] [address] [place] [address] [place] Potassium [Moles/Vol] 4.4 mmol/L Normal 3.7-5.1 [facility] Comment on above: Order Comment: Anat monique Type: BLOOD SPECIMEN Ordering Facility: [facility] Address: [address] [place] [address] Performed By: #### 2 4331-1 #### [facility] CLIA [id number] [address] [place] [address] [place] [facility] CLIA [id number] [address] [place] [address] [place] Protein [Mass/Vol] 7.3 g/dL Normal 6.3-8.0 [facility] Comment on above: Order Comment: Anat monique Type: BLOOD SPECIMEN Ordering Facility: [facility] Address: [address] [place] [address] Performed By: #### 2 4331-1 #### [facility] CLIA [id number] [address] [place] [address] [place] [facility] CLIA [id number] [address] [place] [address] [place] Sodium [Moles/Vol] 137 mmol/L Normal 136-144 [facility] Comment on above: Order Comment: Speci men Type: BLOOD SPECIMEN Ordering Facility: [facility] Address: [address] [place] [address] Performed By: #### 2 4331-1 #### [facility] CLIA [id number] [address] [place] [address] [place] [facility] CLIA [id number] [address] [place] [address] [place] Urea nitrogen [Mass/Vol] 11 mg/dL Normal 7-21 [facility] Comment on above: Order Comment: Speci men Type: BLOOD SPECIMEN Ordering Facility: [facility] Address: [address] [place] [address] Performed By: #### 2 4331-1 #### [facility] CLIA [id number] [address] [place] [address] [place] [facility] CLIA [id number] [address] [place] [address] [place] HbA1c (Bld)on 04-18-2024 Average glucose Estimated from glycated hemoglobin (Bld) [Mass/Vol] 148 mg/dL Normal [facility] Comment on above: Order Comment: Speci men Type: BLOOD SPECIMEN Ordering Facility: [facility] Address: [address] [place] [address] Result Comment: eAG: (Estimated average glucose) is a calculated value from HgbA1c and is customer field representative of the average blood glucose level in the last 2-3 month period. Performed By: #### 2 4331-1 #### [facility] CLIA [id number] [address] [place] [address] [place] [facility] CLIA [id number] [address] [place] [address] [place] HbA1c (Bld) [Mass fraction] 6.8 % High 4.3-5.6 [facility] Comment on above: Order Comment: Speci men Type: BLOOD SPECIMEN Ordering Facility: [facility] Address: [address] [place] [address] Result Comment: [place] Diabetes Association guidelines indicate that patients with HgbA1c in the range 5.7-6.4% are at increased risk for development of diabetes, and intervention by lifestyle modification may be beneficial. HgbA1c greater or equal to 6.5% is considered diagnostic of diabetes. Performed By: #### 2 4331-1 #### [facility] CLIA [id number] [address] [place] [address] CLIA [id number] [address] [place] [address] [place] Lipid 1996 panelon 4 Cholesterol [Mass/Vol] 173 mg/dL Normal <200 [facility] Comment on above: Order Comment: Anat men Type: BLOOD SPECIMEN Ordering Facility: [facility] Address: [address] [place] [address] Result Comment: <200 mg/dL, Desirable 200-239 mg/dL, Borderline high >239 mg/dL, High Performed By: #### 2 4331-1 #### [facility] CLIA [id number] [address] [place] [address] CLIA [id number] [address] [place] [address] Cholesterol in HDL [Mass/Vol] 46 mg/dL Normal >39 [facility] Comment on above: Order Comment: Speci men Type: BLOOD SPECIMEN Ordering Facility: [facility] Address: [address] [place] [address] Result Comment: 40-5 9 mg/dL, Acceptable >59 mg/dL, High: Negative risk factor for coronary heart disease <40 mg/dL, Low: Positive risk factor for coronary heart disease Performed By: #### 2 4331-1 #### [facility] CLIA [id number] [address] [place], [place] [address] CLIA [id number] [address] [place] [address] [place] Cholesterol in LDL [Mass/Vol] 93 mg/dL Normal <100 [facility] Comment on above: Order Comment: Jaclyni men Type: BLOOD SPECIMEN Ordering Facility: [facility] Address: [address] [place] [address] Result Comment: <100 mg/dL, Optimal 100-129 mg/dL, Near optimal/above optimal 130-159 mg/dL, Borderline high 160-189 mg/dL, High >189 mg/dL, Very high Secondary prevention optimal LDL Cholesterol levels are recommended to be < 70 mg/dL Performed By: #### 2 4331-1 #### [facility] CLIA [id number] [address] [place] [address] [facility] [id number] [address] [place] [address] [place] Cholesterol in LDL/Cholesterol in HDL [Mass ratio] 2.02 {ratio} Normal <2.54 [facility] Comment on above: Order Comment: Jaclyni men Type: BLOOD SPECIMEN Ordering Facility: [facility] Address: [address] [place] [address] Result Comment: Zully earl: 1. National Cholesterol Education Program ATP III Guideline At-A-Glance Quick Desk Reference: National Heart, Lung, and Blood [place]. National Institutes of Health. 2001: NIH Publication No. 01-3305. 2. An International Atherosclerosis Society position paper: global recommendations for the management of dyslipidemia: executive summary, Atherosclerosis. 2014: 232(2):410-413. Performed By: #### 2 4331-1 #### [facility] CLIA [id number] [address] [place] [address] [place] [facility] CLIA [id number] [address] [place] [address] [place] Cholesterol in VLDL [Mass/Vol] 34 mg/dL High <30 [facility] Comment on above: Order Comment: Speci men Type: BLOOD SPECIMEN Ordering Facility: [facility] Address: [address] [place], [place] [id number] Performed By: #### 2 4331-1 #### [facility] CLIA [id number] [address] [place] [address] [place] [facility] CLIA [id number] [address] [place] [address] [place] Cholesterol non HDL [Mass/Vol] 127 mg/dL Normal <130 [facility] Comment on above: Order Comment: Speci men Type: BLOOD SPECIMEN Ordering Facility: [facility] Address: [address] [place] [address] Result Comment: <130 mg/dL, Optimal 130-159 mg/dL, Near optimal/above optimal 160-189 mg/dL, Borderline high 190-219 mg/dL, High >219 mg/dL, Very high Secondary prevention optimal non HDL Cholesterol levels are recommended to be <100 mg/dL Performed By: #### 2 4331-1 #### [facility] CLIA [id number] [address] [place] [address] [place] [facility] CLIA [id number] [address] [place] [address] [place] Cholesterol.total/Brigitte sterol in HDL [Mass ratio] 3.76 {ratio} Normal <5.10 [facility] Comment on above: Order Comment: Speci men Type: BLOOD SPECIMEN Ordering Facility: [facility] Address: [address] [place], [place] [address] Performed By: #### 2 4331-1 #### [facility] CLIA [id number] [address] [place] [address] [place] [facility] CLIA [id number] [address] [place] [address] [place] FASTING TIME 12 hrs Normal [facility] Comment on above: Order Comment: Speci men Type: BLOOD SPECIMEN Ordering Facility: [facility] Address: [address] [place] [address] Performed By: #### 2 4331-1 #### [facility] CLIA [id number] [address] [place] [address] [place] [facility] [id number] [address] [place] [address] [place] Triglyceride [Mass/Vol] 169 mg/dL High <150 C [facility] Comment on above: Order Comment: Speci men Type: BLOOD SPECIMEN Ordering Facility: [facility] Address: [address] [place] [address] Result Comment: <150 mg/dL, Normal 150-199 mg/dL, Borderline high 200-499 mg/dL, High >499 mg/dL, Very high Performed By: #### 2 4331-1 #### [facility] CLIA [id number] [address] [place] [address] [place] [facility] [id number] [address] [place] [address] [place] No Panel Informationon 04-18 [place] [address] Test Date: 2024-04-18 Pat Name: CAROL NOLAN Department: Room: Gender: Female Burlapper: : 1960 Requested By: Order Number: [id number] Reading MD: Ena Carpenter MD Interpretive Statements 2 puffs Albuterol (180 mcg) delivered by MDI via holding chamber. HR pre = 83 /min, HR post = 83/min. The two largest DLCO values were repeatable. Current ATS/ERS acceptability and repeatability standards for lung volumes met. Current ATS/ERS acceptability and repeatability standards for spirometry met. Start of test and EOFE criteria met. IMPRESSION: Spirometry indicates mild obstruction. The increase in FEF 25-75 post-bronchodilator reflects an improvement in the small airway obstruction. Elevated lung volumes (RV and/or RV/TLC) indicate air trapping. The diffusion capacity (uncorrected for hemoglobin) is normal. Electronically Signed On 04-18-2024 14:17:28 EDT by Ena Carpenter MD ID: [id number] Name: CAROL NOLAN Race: White Ht: 65.16 in Wt: 292.00 lbs Age: 63 Gender: Female : 1960 Dx: Emphysema_ Smoking Hx: Non-smoker Doctor: SHANITA POLK Test Date: 04/18/2024 Site: Tech: Michel Bhakta PRE-BRONCH POST-BRONCH Pre LLN Pred ULN %Pred Post %Pred %Chg SPIROMETRY FVC (L) 2.60 2.15 2.99 3.87 86 2.72 90 4 FEV1 (L) 1.70 1.66 2.35 3.00 72 1.84 78 5 FEV1/FVC 0.66 0.67 0.79 0.89 82 0.68 85 3 PEF L/s (L/sec) 5.31 4.38 6.15 7.93 86 5.48 89 3 FEF50 (L/sec) 1.03 1.70 3.31 4.92 31 1.63 49 57 FIF50 (L/sec) 2.61 3.88 48 FEF50/FIF50 0.40 90-100 0.42 6 FIVC (L) 2.16 2.51 16 TLX97-21 (L/sec) 0.60 1.02 2.10 3.59 28 1.10 52 84 Time (sec) 14.26 11.81 -17 FET PEF (sec) 0.10 0.08 -19 PEYTON (L) 0.07 0.08 3 Vol Extrap % (%) 3 3 0 LUNG VOLUMES TGV (L) 3.76 2.12 2.98 3.84 126 ERV (L) 0.50 1.00 49 RV (Pleth) (L) 3.26 1.53 2.15 2.78 151 SVC (L) 2.25 2.15 2.99 3.87 75 IC (L) 1.70 2.00 85 TLC (Pleth) (L) 5.46 4.35 5.23 6.11 104 RV/TLC (Pleth) (%) 60 33 42 51 143 LUNG DIFFUSION DLCOunc (ml/min/mmHg) 16.45 15.33 21.50 27.67 76 VA (L) 4.57 4.15 5.25 6.35 86 DLunc/VA (ml/min/mmHg/L) 3.60 2.99 4.31 5.62 83 BHT (sec) 11.04 IVC (L) 2.34 Comments: 2 puffs Albuterol (180 mcg) delivered by MDI via holding chamber. HR pre = 83 /min, HR post = 83/min. The two largest DLCO values were repeatable. Current ATS/ERS acceptability and repeatability standards for lung volumes met. Current ATS/ERS acceptability and repeatability standards for spirometry met. Start of test and EOFE criteria met. PULMONARY FUNCTION LAB [facility] SPIROMETRY WITH DILATOR IF O BSTRUCTEDon 04-18-2024 DLCO (ml/min/mmHg) 16.45 ml/min/mm H g [facility] DLCO LLN (ml/min/mmHg) 15.33 ml/mi n/mmH g [facility] DLCO PREDICTED (ml/min/mmHg) 21.50 ml/min/mmH g [facility] DLCO ULN (ml/min/mmHg) 27.67 ml/mi n/mmH g [facility] DLCO/VA (ml/min/mmHg/L) 3.60 ml/m in/mmH g/L [facility] DLCO/VA PREDICTED (ml/min/mmHg/L) 4.31 ml/min/mmH g/L [facility] DLCOcor PREDICTED (ml/min/mmHg) 21.50 ml/min/mmH g [facility] ERV BOX (L) 0.50 L [facility] ERV PREDICTED (L) 1.00 L/S [facility] FEF25% POST (L/S) 4.75 L/S [facility] FEF25% PRE (L/S) 4.11 L/S [facility] LOJ93-02% LLN (L/S) 1.02 L/S [facility] GDT55-34% POST (L/S) 1.10 L/S [facility] MIK43-18% PRE (L/S) 0.60 L/S [facility] CON77-87% PREDICTED (L/S) 2.10 L/S [facility] FEF75% LLN (L/S) 0.21 L/S [facility] FEF75% POST (L/S) 0.33 L/S [facility] FEF75% PRE (L/S0 0.15 L/S [facility] FEF75% PREDICTED (L/S) 0.56 L/S [facility] FEF75% ULN (L/S) 1.39 L/S [facility] FET POST (S) 11.81 S [facility] FET PRE (S) 14.26 S [facility] FEV1 LLN (L) 1.66 L [facility] FEV1 PRE (L) 1.70 L [facility] FEV1 PREDICTED (L) 2.35 L [facility] FEV1 ULN (L) 3.00 L [facility] FEV1/FVC LLN (%) 67 % [facility] FEV1/FVC POST (%) 68 % [facility] FEV1/FVC PRE (%) 66 % [facility] FEV1/FVC PREDICTED (%) 79 % [facility] FEV1_POST (L) 1.84 L [facility] FRC Box (L) 3.76 L [facility] FVC LLN (L) 2.15 L [facility] FVC POST (L) 2.72 L [facility] FVC PRE (L) 2.60 L [facility] FVC PREDICTED (L) 2.99 L [facility] FVC ULN (L) 3.87 L [facility] IC BOX (L) 1.70 L [facility] IC PREDICTED (L) 2.00 L/S [facility] PEF LLN (L/S) 4.38 L/S [facility] PEF POST (L/S) 5.48 L/S [facility] PEF PRE (L/S) 5.31 L/S [facility] PEF ULN (L/S) 7.93 L/S [facility] RV Box (L) 3.26 L [facility] RV Box PREDICTED (L) 2.15 L [facility] RV/TLC Box (%) 60 % [facility] RV/TLC Box PREDICTED (%) 42 % [facility] (L) 2.15 L/S [facility] SVC PREDICTED (L) 2.99 L/S [facility] SVC ULN (L) 3.87 L/S [facility] TLC Box (L) 5.46 L [facility] TLC Box PREDICTED (L) 5.[address] [facility] (L) 4.57 L [facility] VA PREDICTED (L) 5.25 L [facility] VC (L) BOX 2.25 L [facility] CNPNon 03-31-2024 CNPN Telephone (FAMWS) CAROL NOLAN ([id number]) 1960 F Date Time Provider Department 03/31/24 MAC OLVERA [facility] During your visit today, we recorded the following information about you: Nancy Huffman RN 03/31/2024 8:48 AM Signed Called and spoke with patient. Patient scheduled for 6 month follow up with Hannah on 04/21. Patient asking if there are any other labs that provider wants patient to get done? Patient is planning on getting labs done for Dr. Delacruz (CMP and Lipid Panel) on 04/18. Please review and advise, VIÁN Sierra William J, MD 03/31/2024 9:04 AM Signed Ordered. 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 - Ibuprofen 200 mg cap Take by mouth every 6 hours as needed for pain. - aspirin, enteric coated (ASPIRIN, ENTERIC COATED) 81 mg EC tablet Take 2 tablets by mouth once daily. - rosuvastatin (CRESTOR) 40 mg tablet Take 1 tablet by mouth once daily. - dulaglutide (TRULICITY) 0.75 mg/0.5 mL pen injector Inject 0.75 mg subcutaneously one time a week. Inject dose once per week. Discard Pen After - clopidogrel (PLAVIX) 75 mg tablet Take 1 tablet by mouth once daily. - gabapentin (NEURONTIN) 300 mg capsule Take 1 capsule by mouth daily at bedtime for 180 days. - Blood-Glucose Meter,Continuous (FREESTYLE GARDENIA 3 READER) [facility] Use as directed - Blood-Glucose Sensor (FREESTYLE GARDENIA 3 SENSOR) [facility] Use as directed. - metFORMIN ER (GLUCOPHAGE XR) 500 mg 24 hr tablet Take 3 tablets by mouth daily with breakfast. - lisinopril (ZESTRIL) 20 mg tablet Take 1 tablet by mouth once daily. - nitroglycerin sublingual (NITROQUICK) 0.4 mg SL tablet Dissolve 1 tablet under the tongue as needed for chest pain. - metoprolol succinate ER (TOPROL XL) 50 mg 24 hr tablet Take 1 tablet by mouth once daily. - hydrALAZINE (APRESOLINE) 25 mg tablet Take 0.5 tablets by mouth two times a day. - Blood-Glucose Meter ([employer] ULTRA2 METER) USE DIRECTED - blood sugar diagnostic (BLOOD GLUCOSE TEST) test strip Test blood sugar(s) 1 times daily. Dx: Type 2 DM - Uncontrolled E11.65 Insulin: No - Lancets lancets Test blood sugar(s) 1 times daily. Dx: Type 2 DM - Uncontrolled E11.65 Insulin: No - ipratropium-albuterol (DUONEB) 0.5 mg-3 mg(2.5 mg base)/3 mL nebu Inhale 3 mL as instructed four times daily. Problem List As Of Date 03/31/2024 Noted Resolved Chest pain [R07.9] 08/01/2014 05/31/2015 Shortness of breath [R06.02] 08/01/2014 08/18/2023 Abdominal pain [R10.9] 08/01/2014 12/01/2014 HTN (hypertension) [I10] 08/01/2014 Fever [R50.9] 08/03/2014 12/01/2014 Coronary artery disease involving upper matt[place] lino*08/31/2014 Palpitations [R00.2] 12/19/2014 Obesity [E66.9] 12/19/2014 01/19/2017 Diarrhea [R19.7] 01/19/2017 Skin tag [L91.8] 04/27/2015 01/19/2017 Tobacco abuse [Z72.0] 05/03/2015 01/19/2017 Tobacco use disorder [F17.200] 05/31/2015 Hyperglycemia [R73.9] 11/08/2015 Gross hematuria [R31.0] 09/18/2015 Adrenal nodule (HCC) [E27.9] 09/18/2015 Morbid obesity (HCC) [E66.01] 09/18/2015 Type 2 diabetes mellitus without complication (*11/08/2015 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8*01/25/2024 Encounter Status:Closed by JHONNY HUFFMANHANIE on 03/31/24 Normal [facility] No Panel Informationon 01-28 IMPRESSION: No evidence of abdominal aortic aneurysm. (Note: Lumbar spine film showed a suspected possible aneurysm. Magnification on plain films can have this effect. Ultrasound is much more accurate.) Enterprise Data Architect: APARNA Transcribe Date/Time: Jan 29 2024 12:24P Dictated by : NATHAN DOHERTY DO This examination was interpreted and the report reviewed and electronically signed by: NATHAN DOHERTY DO on Jan 29 2024 12:32PM [facility] DIVISION OF RADIOLOGY Radiology Study observation (narrative) [facility] No Panel InformationOrdered By: Ccf Provider on 01-29-2024 [facility] US ABD AORTAon 01-29-2024 US ABD AORTA * * *Final Report* * * DATE OF EXAM: Jan 29 2024 11:33AM [facility]U 1075 - US ABD AORTA / PROCEDURE REASON: Enlarged aorta (HCC) * * * * Physician Interpretation * * * * EXAMINATION: COMPLETE ABDOMINAL AORTA ULTRASOUND WITH DOPPLER IMAGING HISTORY: Follow-up of a previously demonstrated abdominal aortic aneurysm. TECHNIQUE: Chen scale sonography with color Doppler and spectral Doppler (duplex) imaging of the abdominal aorta and common iliac arteries bilaterally was performed. Images were obtained and stored in a permanent archive. MQ: USAOC_1 COMPARISON: 01/25/2024 x-[address] CT abdomen pelvis 08/01/2014 RESULT: AORTA (AP x TV): Proximal: 2.7 cm x 2.8 cm Mid (level of renal arteries): 2.7 cm x 2.5 cm Distal: 2.5 cm x 2.9 cm Common Iliac Arteries (AP x TV): Right: 1.4 cm x 1.3 cm Left: Nonvisualization due to overlying bowel gas Atherosclerotic plaque: present Doppler: Abdominal aorta is patent with no stenosis or dissection. Normal spectral waveforms. IMPRESSION: No evidence of abdominal aortic aneurysm. (Note: Lumbar spine film showed a suspected possible aneurysm. Magnification on plain films can have this effect. Ultrasound is much more accurate.) Enterprise Data Architect: APARNA Transcribe Date/Time: Jan 29 2024 12:24P Dictated by : NATHAN DOHERTY DO This examination was interpreted and the report reviewed and electronically signed by: NATHAN DOHERTY DO on Jan 29 2024 12:32PM EST [id number] Normal [facility] Abdominal Aortaon 024 * * *Final Report* * * DATE OF EXAM: Jan 29 2024 11:33AM [facility] 1075 - US ABD AORTA / PROCEDURE REASON: Enlarged aorta (HCC) * * * * Physician Interpretation * * * * EXAMINATION: COMPLETE ABDOMINAL AORTA ULTRASOUND WITH DOPPLER IMAGING HISTORY: Follow-up of a previously demonstrated abdominal aortic aneurysm. TECHNIQUE: Chen scale sonography with color Doppler and spectral Doppler (duplex) imaging of the abdominal aorta and common iliac arteries bilaterally was performed. Images were obtained and stored in a permanent archive. MQ: USAOC_1 COMPARISON: 01/25/2024 x-ray CT abdomen pelvis 08/01/2014 RESULT: AORTA (AP x TV): Proximal: 2.7 cm x 2.8 cm Mid (level of renal arteries): 2.7 cm x 2.5 cm Distal: 2.5 cm x 2.9 cm Common Iliac Arteries (AP x TV): Right: 1.4 cm x 1.3 cm Left: Nonvisualization due to overlying bowel gas Atherosclerotic plaque: present Doppler: Abdominal aorta is patent with no stenosis or dissection. Normal spectral waveforms. DIVISION OF RADIOLOGY Provider, [facility] - 01/29/2024 * * *Final Report* * * DATE OF EXAM: Jan 29 2024 11:33AM [facility] 1075 - US ABD AORTA / PROCEDURE REASON: Enlarged aorta (HCC) * * * * Physician Interpretation * * * * EXAMINATION: COMPLETE ABDOMINAL AORTA ULTRASOUND WITH DOPPLER IMAGING HISTORY: Follow-up of a previously demonstrated abdominal aortic aneurysm. TECHNIQUE: Chen scale sonography with color Doppler and spectral Doppler (duplex) imaging of the abdominal aorta and common iliac arteries bilaterally was performed. Images were obtained and stored in a permanent archive. MQ: USAOC_1 COMPARISON: 01/25/2024 x-ray CT abdomen pelvis 08/01/2014 RESULT: AORTA (AP x TV): Proximal: 2.7 cm x 2.8 cm Mid (level of renal arteries): 2.7 cm x 2.5 cm Distal: 2.5 cm x 2.9 cm Common Iliac Arteries (AP x TV): Right: 1.4 cm x 1.3 cm Left: Nonvisualization due to overlying bowel gas Atherosclerotic plaque: present Doppler: Abdominal aorta is patent with no stenosis or dissection. Normal spectral waveforms. IMPRESSION IMPRESSION: No evidence of abdominal aortic aneurysm. (Note: Lumbar spine film showed a suspected possible aneurysm. Magnification on plain films can have this effect. Ultrasound is much more accurate.) Enterprise Data Architect: APARNA Transcribe Date/Time: Jan 29 2024 12:24P Dictated by : NATHAN DOHERTY DO This examination was interpreted and the report reviewed and electronically signed by: NATHAN DOHERTY DO on Jan 29 2024 12:32PM EST [facility] US DOPPLER AORTAon 4 US DOPPLER AORTA * * *Final Report* * * DATE OF EXAM: Jan 29 2024 11:33AM WRU 1227 - US DOPPLER AORTA / PROCEDURE REASON: Enlarged aorta (HCC) * * * * Physician Interpretation * * * * EXAMINATION: COMPLETE ABDOMINAL AORTA ULTRASOUND WITH DOPPLER IMAGING HISTORY: Follow-up of a previously demonstrated abdominal aortic aneurysm. TECHNIQUE: Chen scale sonography with color Doppler and spectral Doppler (duplex) imaging of the abdominal aorta and common iliac arteries bilaterally was performed. Images were obtained and stored in a permanent archive. MQ: USAOC_1 COMPARISON: 01/25/2024 x-ray CT abdomen pelvis 08/01/2014 RESULT: AORTA (AP x TV): Proximal: 2.7 cm x 2.8 cm Mid (level of renal arteries): 2.7 cm x 2.5 cm Distal: 2.5 cm x 2.9 cm Common Iliac Arteries (AP x TV): Right: 1.4 cm x 1.3 cm Left: Nonvisualization due to overlying bowel gas Atherosclerotic plaque: present Doppler: Abdominal aorta is patent with no stenosis or dissection. Normal spectral waveforms. IMPRESSION: No evidence of abdominal aortic aneurysm. (Note: Lumbar spine film showed a suspected possible aneurysm. Magnification on plain films can have this effect. Ultrasound is much more accurate.) Enterprise Data Architect: [facility] Transcribe Date/Time: Jan 29 2024 12:24P Dictated by : NATHAN DOHERTY DO This examination was interpreted and the report reviewed and electronically signed by: NATHAN DOHERTY DO on Jan 29 2024 12:32PM EST [id number] Normal [facility] US.doppler Thoracic and abdo yolande aortaon 01-29-2024 * * *Final Report* * * DATE OF EXAM: Jan 29 2024 11:33AM WRU 1227 - US DOPPLER AORTA / PROCEDURE REASON: Enlarged aorta (HCC) * * * * Physician Interpretation * * * * EXAMINATION: COMPLETE ABDOMINAL AORTA ULTRASOUND WITH DOPPLER IMAGING HISTORY: Follow-up of a previously demonstrated abdominal aortic aneurysm. TECHNIQUE: Chen scale sonography with color Doppler and spectral Doppler (duplex) imaging of the abdominal aorta and common iliac arteries bilaterally was performed. Images were obtained and stored in a permanent archive. MQ: USAOC_1 COMPARISON: 01/25/2024 x-ray CT abdomen pelvis 08/01/2014 RESULT: AORTA (AP x TV): Proximal: 2.7 cm x 2.8 cm Mid (level of renal arteries): 2.7 cm x 2.5 cm Distal: 2.5 cm x 2.9 cm Common Iliac Arteries (AP x TV): Right: 1.4 cm x 1.3 cm Left: Nonvisualization due to overlying bowel gas Atherosclerotic plaque: present Doppler: Abdominal aorta is patent with no stenosis or dissection. Normal spectral waveforms. DIVISION OF RADIOLOGY Provider, [facility] - 01/29/2024 * * *Final Report* * * DATE OF EXAM: Jan 29 2024 11:33AM WRU 1227 - US DOPPLER AORTA / PROCEDURE REASON: Enlarged aorta (HCC) * * * * Physician Interpretation * * * * EXAMINATION: COMPLETE ABDOMINAL AORTA ULTRASOUND WITH DOPPLER IMAGING HISTORY: Follow-up of a previously demonstrated abdominal aortic aneurysm. TECHNIQUE: Chen scale sonography with color Doppler and spectral Doppler (duplex) imaging of the abdominal aorta and common iliac arteries bilaterally was performed. Images were obtained and stored in a permanent archive. MQ: USAOC_1 COMPARISON: 01/25/2024 x-ray CT abdomen pelvis 08/01/2014 RESULT: AORTA (AP x TV): Proximal: 2.7 cm x 2.8 cm Mid (level of renal arteries): 2.7 cm x 2.5 cm Distal: 2.5 cm x 2.9 cm Common Iliac Arteries (AP x TV): Right: 1.4 cm x 1.3 cm Left: Nonvisualization due to overlying bowel gas Atherosclerotic plaque: present Doppler: Abdominal aorta is patent with no stenosis or dissection. Normal spectral waveforms. IMPRESSION IMPRESSION: No evidence of abdominal aortic aneurysm. (Note: Lumbar spine film showed a suspected possible aneurysm. Magnification on plain films can have this effect. Ultrasound is much more accurate.) Enterprise Data Architect: [employer] Transcribe Date/Time: Jan 29 2024 12:24P Dictated by : NATHAN DOHERTY DO This examination was interpreted and the report reviewed and electronically signed by: NATHAN DOHERTY DO on Jan 29 2024 12:32PM EST [facility] CAROL NOLAN ([id number]) 1960 F Date Time Provider Department 01/27/24 MAC OLVERA [facility] During your visit today, we recorded the following information about you: Mac Olvera MD 01/27/2024 4:44 PM Signed Xray shows degenerative disc disease. See pain management as recommended. Also it shows that the outline of her aorta looks a little big although xray is a poor way to tell. Do us of the aorta. Kandace Lott MA 01/27/2024 4:52 PM Signed Patient informed and verbalized understanding. Kandace Lott MA Allergies As of Date: 01/27/2024 Noted Allergy Reaction PENICILLINS 08/01/2014 4 - Hives 7 - Swelling NICKEL 05/03/2015 14 - Other: See Comments Comments: Metal jewelry Date Reviewed: 01/25/2024 Reviewed by: Rc Delacruz MD - Fully Assessed Reason for Visit: Results [95] Primary Visit Diagnosis:Enlarged aorta (HCC) [I77.89] Order(s):US ABD AORTA [[id number]] Order #: [id number] FUTURE US DOPPLER AORTA [[id number]] Order #: [id number] FUTURE Prescriptions as of 02/16/2024 - Ibuprofen 200 mg cap Take by mouth every 6 hours as needed for pain. - aspirin, enteric coated (ASPIRIN, ENTERIC COATED) 81 mg EC tablet Take 2 tablets by mouth once daily. - rosuvastatin (CRESTOR) 40 mg tablet Take 1 tablet by mouth once daily. - dulaglutide (TRULICITY) 0.75 mg/0.5 mL pen injector Inject 0.75 mg subcutaneously one time a week. Inject dose once per week. Discard Pen After - clopidogrel (PLAVIX) 75 mg tablet Take 1 tablet by mouth once daily. - gabapentin (NEURONTIN) 300 mg capsule Take 1 capsule by mouth daily at bedtime for 180 days. - Blood-Glucose Meter,Continuous (FREESTYLE GARDENIA 3 READER) [facility] Use as directed - Blood-Glucose Sensor (FREESTYLE GARDENIA 3 SENSOR) [facility] Use as directed. - albuterol HFA (PROVENTIL HFA, VENTOLIN HFA) 90 mcg/actuation inhaler Inhale 2 Puffs as instructed every 6 hours as needed for wheezing/shortness of breath. - metFORMIN ER (GLUCOPHAGE XR) 500 mg 24 hr tablet Take 3 tablets by mouth daily with breakfast. - lisinopril (ZESTRIL) 20 mg tablet Take 1 tablet by mouth once daily. - nitroglycerin sublingual (NITROQUICK) 0.4 mg SL tablet Dissolve 1 tablet under the tongue as needed for chest pain. - metoprolol succinate ER (TOPROL XL) 50 mg 24 hr tablet Take 1 tablet by mouth once daily. - hydrALAZINE (APRESOLINE) 25 mg tablet Take 0.5 tablets by mouth two times a day. - Blood-Glucose Meter ([employer] ULTRA2 METER) USE DIRECTED - blood sugar diagnostic (BLOOD GLUCOSE TEST) test strip Test blood sugar(s) 1 times daily. Dx: Type 2 DM - Uncontrolled E11.65 Insulin: No - Lancets lancets Test blood sugar(s) 1 times daily. Dx: Type 2 DM - Uncontrolled E11.65 Insulin: No - ipratropium-albuterol (DUONEB) 0.5 mg-3 mg(2.5 mg base)/3 mL nebu Inhale 3 mL as instructed four times daily. Problem List As Of Date 01/27/2024 Noted Resolved Chest pain [R07.9] 08/01/2014 05/31/2015 Shortness of breath [R06.02] 08/01/2014 08/18/2023 Abdominal pain [R10.9] 08/01/2014 12/01/2014 HTN (hypertension) [I10] 08/01/2014 Fever [R50.9] 08/03/2014 12/01/2014 Coronary artery disease involving upper matt[place] lino*08/31/2014 Palpitations [R00.2] 12/19/2014 Obesity [E66.9] 12/19/2014 01/19/2017 Diarrhea [R19.7] 01/19/2017 Skin tag [L91.8] 04/27/2015 01/19/2017 Tobacco abuse [Z72.0] 05/03/2015 01/19/2017 Tobacco use disorder [F17.200] 05/31/2015 Hyperglycemia [R73.9] 11/08/2015 Gross hematuria [R31.0] 09/18/2015 Adrenal nodule (HCC) [E27.9] 09/18/2015 Morbid obesity (HCC) [E66.01] 09/18/2015 Type 2 diabetes mellitus without complication (*11/08/2015 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8*01/25/2024 Encounter Status:Closed by MAC OLVERA on 02/16/24 [facility] CNOVon 01-25-2024 CNOV Office Visit (CAWSTR ) CAROL NOLAN ([id number]) 1960 F Date Time Provider Department 01/25/24 11:00 AM RC DELACRUZWSTR During your visit today, we recorded the following information about you: Pulse Blood pressure Weight 72/minute 128/82 131.5 kg Rc Delacruz MD 01/25/2024 11:33 AM [facility] SECTION OF REGIONAL CARDIOLOGY Cardiology ([facility]) [address] [id number] OUTPATIENT VISIT DATE 01/25/2024 PRIMARY CARE PHYSICIAN: Mac Olvera [address] [place] [address] HISTORY OF PRESENT ILLNESS: Ms. Nolan is a 63 year old morbidly obese woman with a history of coronary artery disease and prior coronary bypass grafting in 2016 subsequent coronary intervention of the right coronary artery in February 2019, hypertension, diabetes (eiz-[id number]-jwluinvpa), dyslipidemia, and ongoing smoking of 2 packs of cigarettes a day who presents for routine follow-up. She was admitted to [facility] in late October early November due to chest pain. Her workup was negative for an acute coronary syndrome and she was discharged home. She continues to have normal daily chest pain. It is often sharp and stabbing not necessarily associated with exertion. Her symptoms have not changed over the last 4 to 5 years. She has chronic shortness of breath on exertion which is also unchanged from prior. She has not had symptoms consistent with PND or orthopnea. She was recently evaluated by dentist who told her she has to have all her teeth removed due to infection. She is trying to make arrangements with a dentist. PAST MEDICAL HISTORY Diagnosis Date Arthritis Chronic back pain Cigarette smoker Colon polyps COPD (chronic obstructive pulmonary disease) (HCC) Coronary artery disease Diabetes (HCC) Diarrhea Essential hypertension Fatty liver ultra sound 2014 Hyperglycemia Hyperlipidemia Obesity Preinfarction syndrome (HCC) Tobacco abuse PAST SURGICAL HISTORY Procedure Laterality Date CABG (2) VEIN GRAFTS AND ARTERIAL GRAFT(S 10/17/2015 DELIVERY ONLY , low transverse CHOLECYSTECTOMY HX maybe 1989' COLONOSCOPY 11/27/2017 COLONOSCOPY FLX DX W/COLLJ SPEC WHEN PFRMD 05/17/2015 Colonoscopy [facility] outpt ESOPHAGOGASTRODUODENOSCOPY TRANSORAL DIAGNOSTIC 05/17/2015 EGD [facility] outpt HEART SURGERY HX JOINT REPLACEMENT HX ORTHOPEDICS SURGERY HX Left RCR PAST SURGICAL HISTORY OF Bilateral knee arthroscopy PAST SURGICAL HISTORY OF lumbar pain injections PAST SURGICAL HISTORY OF Repair tendon/muscle arm-left rotator cuff surgery TONSILLECTOMY AND ADENOIDECTOMY HX TONSILLECTOMY HX TOTAL KNEE REPLACEMENT right TUBAL LIGATION HX SOCIAL HISTORY Social History Tobacco Use Smoking status: Every Day Packs/day: 2.00 Years: 43.00 Additional pack years: 0.00 Total pack years: 86.00 Types: Cigarettes Start date: 04/27/1972 Smokeless tobacco: Former Tobacco comments: started smoking at age 11;cigarette; Amount: 20-39 cigs/day; 1 1/2 - 2 ppd x 43 years; Vaping Use Vaping Use: Never used Substance Use Topics Alcohol use: Yes Alcohol/week: 2.0 - 3.0 standard drinks of alcohol Types: 2 - 3 Cans of Beer (12oz) per week Comment: 2-3 x per week Drug use: No FAMILY HISTORY Problem Relation Age of Onset other (congestive heart failure) Mother other (CKD) Mother other (renal failure) Mother Ischemic Heart Disease Father Lung Cancer Maternal Grandfather Hypertension Daughter lung ALLERGIES: ALLERGIES Allergen Reactions Penicillins Hives, Swelling Nickel Other: See Comments Metal jewelry MEDICATIONS: Ibuprofen 200 mg cap Take by mouth every 6 hours as needed for pain. dulaglutide (TRULICITY) 0.75 mg/0.5 mL pen injector Inject 0.75 mg subcutaneously one time a week. Inject dose once per week. Discard Pen After rosuvastatin (CRESTOR) 20 mg tablet Take 1 tablet by mouth once daily. clopidogrel (PLAVIX) 75 mg tablet Take 1 tablet by mouth once daily. gabapentin (NEURONTIN) 300 mg capsule Take 1 capsule by mouth daily at bedtime for 180 days. Blood-Glucose Meter,Continuous (FREESTYLE GARDENIA 3 READER) [facility] Use as directed Blood-Glucose Sensor (FREESTYLE GARDENIA 3 SENSOR) [facility] Use as directed. albuterol HFA (PROVENTIL HFA, VENTOLIN HFA) 90 mcg/actuation inhaler Inhale 2 Puffs as instructed every 6 hours as needed for wheezing/shortness of breath. metFORMIN ER (GLUCOPHAGE XR) 500 mg 24 hr tablet Take 3 tablets by mouth daily with breakfast. lisinopril (ZESTRIL) 20 mg tablet Take 1 tablet by mouth once daily. nitroglycerin sublingual (NITROQUICK) 0.4 mg SL tablet Dissolve 1 tablet under the tongue as needed for chest pain. aspirin, enteric coated (ASPIRIN, ENTERIC COATED) 81 mg EC tablet Take 2 tablet (more content not included)... Normal [facility] 01-25-2024 [facility] Telephone ([facility]) CAORL NOLAN ([id number]) 1960 F Date Time Provider Department 01/25/24 MAC OLVERA [facility] During your visit today, we recorded the following information about you: Ro Royal LPN 01/25/2024 11:35 AM Signed Patient is in x-ray and asking about right shoulder x-ray? Looks like on 11/09/23 OV we were going to order -ray for her. Allergies As of Date: 01/25/2024 Noted Allergy Reaction PENICILLINS 08/01/2014 4 - Hives 7 - Swelling NICKEL 05/03/2015 14 - Other: See Comments Comments: Metal jewelry Date Reviewed: 01/25/2024 Reviewed by: Rc Delacruz MD - Fully Assessed Reason for Visit: Orders [681] Primary Visit Diagnosis:Acute pain of right shoulder [M25.511] Order(s):XR SHOULDER GENERAL 3V OR MORE AP/TRUE AP/OTHER RIGHT [[id number]] Order #: [id number] FUTURE Prescriptions as of 01/25/2024 - Ibuprofen 200 mg cap Take by mouth every 6 hours as needed for pain. - aspirin, enteric coated (ASPIRIN, ENTERIC COATED) 81 mg EC tablet Take 2 tablets by mouth once daily. - rosuvastatin (CRESTOR) 40 mg tablet Take 1 tablet by mouth once daily. - dulaglutide (TRULICITY) 0.75 mg/0.5 mL pen injector Inject 0.75 mg subcutaneously one time a week. Inject dose once per week. Discard Pen After - clopidogrel (PLAVIX) 75 mg tablet Take 1 tablet by mouth once daily. - gabapentin (NEURONTIN) 300 mg capsule Take 1 capsule by mouth daily at bedtime for 180 days. - Blood-Glucose Meter,Continuous (FREESTYLE GARDENIA 3 READER) [facility] Use as directed - Blood-Glucose Sensor (FREESTYLE GARDENIA 3 SENSOR) [facility] Use as directed. - albuterol HFA (PROVENTIL HFA, VENTOLIN HFA) 90 mcg/actuation inhaler Inhale 2 Puffs as instructed every 6 hours as needed for wheezing/shortness of breath. - metFORMIN ER (GLUCOPHAGE XR) 500 mg 24 hr tablet Take 3 tablets by mouth daily with breakfast. - lisinopril (ZESTRIL) 20 mg tablet Take 1 tablet by mouth once daily. - nitroglycerin sublingual (NITROQUICK) 0.4 mg SL tablet Dissolve 1 tablet under the tongue as needed for chest pain. - metoprolol succinate ER (TOPROL XL) 50 mg 24 hr tablet Take 1 tablet by mouth once daily. - hydrALAZINE (APRESOLINE) 25 mg tablet Take 0.5 tablets by mouth two times a day. - Blood-Glucose Meter (FrontierreUCH ULTRA2 METER) USE DIRECTED - blood sugar diagnostic (BLOOD GLUCOSE TEST) test strip Test blood sugar(s) 1 times daily. Dx: Type 2 DM - Uncontrolled E11.65 Insulin: No - Lancets lancets Test blood sugar(s) 1 times daily. Dx: Type 2 DM - Uncontrolled E11.65 Insulin: No - ipratropium-albuterol (DUONEB) 0.5 mg-3 mg(2.5 mg base)/3 mL nebu Inhale 3 mL as instructed four times daily. Problem List As Of Date 01/25/2024 Noted Resolved Chest pain [R07.9] 08/01/2014 05/31/2015 Shortness of breath [R06.02] 08/01/2014 08/18/2023 Abdominal pain [R10.9] 08/01/2014 12/01/2014 HTN (hypertension) [I10] 08/01/2014 Fever [R50.9] 08/03/2014 12/01/2014 Coronary artery disease involving upper [place] l[place]*08/31/2014 Palpitations [R00.2] 12/19/2014 Obesity [E66.9] 12/19/2014 01/19/2017 Diarrhea [R19.7] 01/19/2017 Skin tag [L91.8] 04/27/2015 01/19/2017 Tobacco abuse [Z72.0] 05/03/2015 01/19/2017 Tobacco use disorder [F17.200] 05/31/2015 Hyperglycemia [R73.9] 11/08/2015 Gross hematuria [R31.0] 09/18/2015 Adrenal nodule (HCC) [E27.8] 09/18/2015 Morbid obesity (HCC) [E66.01] 09/18/2015 Type 2 diabetes mellitus without complication (*11/08/2015 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8*01/25/2024 Encounter Status:Closed by MAC OLVERA [place] on 01/25/24 [facility] XR LUMBAR 3V AP/LAT/L5-S1on 01-25-2024 XR LUMBAR 3V AP/LAT/L5-S1 * * *Final Report* * * DATE OF EXAM: Jan 25 2024 12:01PM [id number] - XR LUMBAR 3V AP/LAT/L5-S1 / PROCEDURE REASON: DDD (degenerative disc disease), lumbar * * * * Physician Interpretation * * * * EXAM TITLE: XR LUMBAR 3V AP/LAT/L5-S1 EXAM DATE/TIME: 01/25/2024 12:01 PM COMPARISON: None. CLINICAL INDICATION/HISTORY: Low back pain. TECHNIQUE: AP, lateral and cone down lateral views of the lumbar spine are presented. FINDINGS: There are five gqn-ovf-fokdwlo lumbar vertebrae. No acute fractures demonstrated. There is grade 1 L4 on L5 anterolisthesis. L3-4 and L4-5 disc space narrowing is demonstrated. There is mild osteophyte formation, with facet arthrosis in the lower lumbar spine. Others: There appears be borderline calcified AAA. Multiple tubular ligation surgical clips in the pelvis. IMPRESSION: Lumbar spine degenerative changes with multilevel disc space narrowing. Enterprise Data Architect[facility] Transcribe Date/Time: Jan 27 2024 1:25P Dictated by : MAXIME MORTON MD This examination was interpreted and the report reviewed and electronically signed by: MAXIME MORTON MD on Jan 27 2024 1:32PM EST [id number] [facility] XR SHLDR >/=3V AP/TODD AP/OTH R RTon 01-25-2024 XR SHLDR >/=3V AP/TODD AP/OTHR RT * * *Final Report* * * DATE OF EXAM: Jan 25 2024 12:01PM [id number] - XR SHLDR >/=3V AP/TODD AP/OTHR RT / PROCEDURE REASON: Acute pain of right shoulder * * * * Physician Interpretation * * * * EXAMINATION / TECHNIQUE: XR SHLDR >/=3V AP/TODD AP/OTHR RT HISTORY: Chronic right shoulder pain Acute pain of right shoulder COMPARISON: 07/14/2018. RESULT: No acute fracture or osseous malalignment. The glenohumeral joint is preserved. Mild to moderate acromioclavicular osteoarthritis. IMPRESSION: No acute bony abnormality. Enterprise Data Architect: [facility] Transcribe Date/Time: Jan 27 2024 8:17P Dictated by : ROCAEL CALDERON MD This examination was interpreted and the report reviewed and electronically signed by: ROCAEL CALDERON MD on Jan 27 2024 8:17PM EST [id number] [facility] CT Chest for screening WO co ntraston 09-30-2023 [facility] No Panel Informationon 09-08 [facility] UA DIP, URINE (POC)on 2023 BILIRUBIN UA (POCT) Negative Negative [facility] CLARITY UA (POCT) [facility] COLOR UA (POCT) Dark yellow [facility] GLUCOSE UA (POCT) Negative Negative mg/dL [facility] Hemoglobin Ql (U) Negative Negative [facility] KETONE UA (POCT) Negative Negative mg/dL [facility] LEUKOCYTES UA (POCT) Trace Abnormal Negative [facility] NITRITE UA (POCT) Negative Negative [facility] PH UA (POCT) 5.5 4.5 - 8.0 [facility] Protein Ql (U) Negative Negative mg/dL [facility] SPECIFIC GRAVITY UA (POCT) 1.025 1.005 - 1.030 [facility] UROBILINOGEN UA (POCT) 0.2 E.U./dL Suzan l E.U./dL [facility] Absolute lymphocyte countOrd ered By: Harmony Argueta on 05-07-2023 Lymphocytes Auto (Unsp spec) [#/Vol] 2.35 10*3/uL 0.83-4.51 [facility] Basophil percentageOrdered B y: Harmony Argueta on 05-07-2023 Basophil percentage 3.5 mg/dL 2.5-4.9 [facility] Basophils/100 WBC (Bld) 0.6 % 0-1 [facility] Chloride [Moles/Vol] 106 mmol/L 98-107 [facility] Cholesterol [Mass/Vol] 153 mg/dL <200 [facility] Comment on above: <200 mg/dL Desirable 200-240 mg/dL Borderline >240 mg/dL High Risk Eosinophils/100 WBC (Bld) 2.2 % 0-5 [facility] Glucose [Mass/Vol] 157 mg/dL 74-106 [facility] Comment on above: Fasting Glucose resu lt greater than or equal to 126 mg/dL suggests DIABETES MELLITUS per A.D.A. criteria. Neutrophils (Bld) [#/Vol] 3.8 10*3/uL 2.0-7.7 [facility] Neutrophils/100 WBC (Bld) 54.1 % 47-70 [facility] Potassium [Moles/Vol] 3.9 mmol/L 3.5-5.1 [facility] Sodium [Moles/Vol] 137 mmol/L 136-145 [facility] Triglyceride [Mass/Vol] 163 mg/dL <199 [facility] Comment on above: The drugs N-Acetylcy steine and Metamizole may falsely depress this assay.Serum Triglycerides Reference Interval Normal <150 mg/dL Borderline high 150 - 199 mg/dL High 200 - 499 mg/dL Very High > or = 500 mg/dL WBC (Bld) [#/Vol] 7.0 10*3/uL 4.4-11.0 [facility] Blood erythrocytes count (nu mber/volume)Ordered By: Harmony Argueta on 05-07-2023 RBC (Bld) [#/Vol] 5.16 10*6/uL 4.2-5.4 [facility] Blood hemoglobin measurement (mass/volume)Ordered By: Harmony Argueta on 05-07-2023 Hemoglobin (Bld) [Mass/Vol] 16.0 g/dL 12.0-15.0 [facility] Blood lymphocytes/100 leukoc ytesOrdered By: Harmony Argueta on 05-07-2023 Lymphocytes/100 WBC (Bld) 33.7 % 19-41 [facility] Blood monocytes/100 leukocyt esOrdered By: Harmony Argueta on 05-07-2023 Monocytes/100 WBC (Bld) 9.3 % 0-10 [facility] Blood platelet mean volumeOr dered By: Harmony Argueta on 05-07-2023 Platelet mean volume (Bld) [Entitic vol] 10.2 fL 6.2-12.0 [facility] Determination of erythrocyte mean corpuscular volume (MCV)Ordered By: Harmony Argueta on 05-07-2023 MCV (RBC) [Entitic vol] 94.4 fL 81-99 [facility] Glucose Glucometer (BldC) [M ass/Vol]Ordered By: Sara Marte on 05-07-2023 Glucose [Mass/Vol] 193 mg/dL 74-106 [facility] Comment on above: MANAGEMENT OF PATIEN T CARE PER NURSING PROTOCOL Hematocrit Auto (Bld) [Volum e fraction]Ordered By: Harmony Argueta on 05-07-2023 Hematocrit (Bld) [Volume fraction] 48.7 % 37-47 [facility] Laboratory - Chemistry and C hemistry - challengeOrdered By: Harmony Argueta on 05-07-2023 CO2 [Moles/Vol] 26.0 mmol/L 21.0-32.0 [facility] Magnesium [Mass/Vol] 2.3 mg/dL 1.6-2.6 [facility] Urea nitrogen/Creatinine [Mass ratio] 15.7 mg/mg 10-20 [facility] Laboratory - Hematology and Cell countsOrdered By: Harmony Argueta on 05-07-2023 Erythrocyte distribution width (RBC) [Entitic vol] 45.9 fL 35.1-43.9 [facility] Erythrocyte distribution width (RBC) [Ratio] 13.2 % 11.6-14.6 [facility] Immature granulocytes/100 WBC (Bld) 0.100 % 0.0-0.9 [facility] Comment on above: IG% - Immature Granu locytes (promyelocytes, myelocytes and metamyelocytes) > 1% indicates that a LEFT SHIFT is Present. MCH (RBC) [Entitic mass] 31.0 pg 27.0-32.0 [facility] Nucleated RBC/100 WBC (Bld) [Ratio] 0 % 0-5 [facility] MCHC Auto (RBC) [Mass/Vol]Or dered By: Harmony Argueta on 05-07-2023 MCHC (RBC) [Mass/Vol] 32.9 g/dL 32-36 [facility] No Panel InformationOrdered By: Harmony Argueta on 05-07-2023 Estimated Creatinine Clearance Calc 83.13 ml/min [facility] Estimated GFR (MDRD) Amer 120 mL/min >60 [facility] Comment on above: GFR Calc Estimated GFR (MDRD) Non-Af Amer 100 mL/min >60 [facility] Comment on above: Non- GFR Calc Platelets bldOrdered By: Reina Argueta on 05-07-2023 Platelets (Bld) [#/Vol] 180 10*3/uL 150-450 [facility] Serum or plasma calcium lexie urement (mass/volume)Ordered By: Harmony Argueta on 05-07-2023 Calcium [Mass/Vol] 8.7 mg/dL 8.5-10.1 [facility] Serum or plasma cholesterol in HDL measurement (mass/volume)Ordered By: Harmony Argueta on 05-07-2023 Cholesterol in HDL [Mass/Vol] 44 mg/dL >40 [facility] Comment on above: The drugs N-Acetylcy steine and Metamizole may falsely depress this assay. Reference Range HDL <40 mg/dL Low HDL Cholesterol HDL >or= 60 mg/dL High HDL Cholesterol Serum or plasma cholesterol in VLDL measurement (mass/volume)Ordered By: Harmony Argueta on 05-07-2023 Cholesterol in VLDL [Mass/Vol] 33 mg/dL 5-40 [facility] Serum or plasma creatinine m easurement (mass/volume)Ordered By: Harmony Argueta on 05-07-2023 Creatinine [Mass/Vol] 0.64 mg/dL 0.55-1.02 [facility] Comment on above: The validity of the calculated GFR & GFRAA in patients over 70 years has not been determined. Clinical correlation is essential. Serum or plasma low density lipoprotein (LDL) cholesterol measurement (mass/volume)Ordered By: Harmony Argueta on 05-07-2023 Cholesterol in LDL [Mass/Vol] 76 mg/dL 0-130 [facility] Serum or plasma urea nitroge n measurement (mass/volume)Ordered By: Harmony Argueta on 05-07-2023 Urea nitrogen [Mass/Vol] 10 mg/dL 7-18 [facility] Thin prep Papanicolaou smear with manual screeningOrdered By: Harmony Argueta on 05-07-2023 Thin prep Papanicolaou smear with manual screening 5 5-15 [facility] Absolute lymphocyte countOrd ered By: ED PROVIDER on 05-06-2023 Lymphocytes Auto (Unsp spec) [#/Vol] 2.59 10*3/uL 0.83-4.51 [facility] Basophil percentageOrdered B y: ED PROVIDER on 05-06-2023 Basophils/100 WBC (Bld) 0.8 % 0-1 [facility] Eosinophils/100 WBC (Bld) 0.8 % 0-5 [facility] Neutrophils (Bld) [#/Vol] 5.4 10*3/uL 2.0-7.7 [facility] Neutrophils/100 WBC (Bld) 60.8 % 47-70 [facility] WBC (Bld) [#/Vol] 8.9 10*3/uL 4.4-11.0 [facility] Basophil percentageOrdered B y: Angel Carter on 05-06-2023 Chloride [Moles/Vol] 108 mmol/L 98-107 [facility] Glucose [Mass/Vol] 151 mg/dL 74-106 [facility] Comment on above: Fasting Glucose resu lt greater than or equal to 126 mg/dL suggests DIABETES MELLITUS per A.D.A. criteria. Potassium [Moles/Vol] 4.5 mmol/L 3.5-5.1 [facility] Comment on above: Moderate Hemolysis, Result may be falsely increased. Sodium [Moles/Vol] 138 mmol/L 136-145 [facility] Blood erythrocytes count (nu mber/volume)Ordered By: ED PROVIDER on 05-06-2023 RBC (Bld) [#/Vol] 5.34 10*6/uL 4.2-5.4 [facility] Blood hemoglobin measurement (mass/volume)Ordered By: ED PROVIDER on 05-06-2023 Hemoglobin (Bld) [Mass/Vol] 16.6 g/dL 12.0-15.0 [facility] Blood lymphocytes/100 leukoc ytesOrdered By: ED PROVIDER on 05-06-2023 Lymphocytes/100 WBC (Bld) 29.0 % 19-41 [facility] Blood monocytes/100 leukocyt esOrdered By: ED PROVIDER on 05-06-2023 Monocytes/100 WBC (Bld) 8.2 % 0-10 [facility] Blood platelet mean volumeOr dered By: ED PROVIDER on 05-06-2023 Platelet mean volume (Bld) [Entitic vol] 9.8 fL 6.2-12.0 [facility] Determination of erythrocyte mean corpuscular volume (MCV)Ordered By: ED PROVIDER on 05-06-2023 MCV (RBC) [Entitic vol] 92.7 fL 81-99 [facility] Hematocrit Auto (Bld) [Volum e fraction]Ordered By: ED PROVIDER on 05-06-2023 Hematocrit (Bld) [Volume fraction] 49.5 % 37-47 [facility] Laboratory - Chemistry and C hemistry - challengeOrdered By: Angel Carter on 05-06-2023 CO2 [Moles/Vol] 25.0 mmol/L 21.0-32.0 [facility] Urea nitrogen/Creatinine [Mass ratio] 12.2 mg/mg 10-20 [facility] Laboratory - Hematology and Cell countsOrdered By: ED PROVIDER on 05-06-2023 Erythrocyte distribution width (RBC) [Entitic vol] 43.6 fL 35.1-43.9 [facility] Erythrocyte distribution width (RBC) [Ratio] 12.9 % 11.6-14.6 [facility] Immature granulocytes/100 WBC (Bld) 0.400 % 0.0-0.9 [facility] Comment on above: IG% - Immature Granu locytes (promyelocytes, myelocytes and metamyelocytes) > 1% indicates that a LEFT SHIFT is Present. MCH (RBC) [Entitic mass] 31.1 pg 27.0-32.0 [facility] Nucleated RBC/100 WBC (Bld) [Ratio] 0 % 0-5 [facility] MCHC Auto (RBC) [Mass/Vol]Or dered By: ED PROVIDER on 05-06-2023 MCHC (RBC) [Mass/Vol] 33.5 g/dL 32-36 [facility] No Panel InformationOrdered By: Angel Carter on 05-06-2023 Troponin I High Sensitivity 6 pg/mL 3.0-54.0 [facility] Comment on above: Please Note: New Diana t Units and Gender Specific Reference Ranges. For more information see Policy Stat Procedure [place] High Sensitivity Troponin (TNIH) and attachments. D-Dimer Quantitative (PE/DVT) 0.54 FEU/ug/m 0.27-0.49 [facility] Comment on above: D-Dimer ELEVATED (>0 .49): Additional studies and clinicalassessments are indicated to conclude diagnosis of:Deep Vein Thrombosis (DVT) or Pulmonary Embolism (PE)CRITICAL VALUE VERIFIED. CALLED TO INEZ MINOR (ER)05/06/23 1427 Ki Morejon.RESULTS READ BACK BY SAME. Estimated Creatinine Clearance Calc 71.90 ml/min [facility] Estimated GFR (MDRD) Amer 102 mL/min >60 [facility] Comment on above: GFR Calc Estimated GFR (MDRD) Non-Af Amer 84 mL/min >60 [facility] Comment on above: Non- GFR Calc Platelets bldOrdered By: ED PROVIDER on 05-06-2023 Platelets (Bld) [#/Vol] 182 10*3/uL 150-450 [facility] Serum or plasma calcium lexie urement (mass/volume)Ordered By: Angel Carter on 05-06-2023 Calcium [Mass/Vol] 9.1 mg/dL 8.5-10.1 [facility] Serum or plasma creatinine m easurement (mass/volume)Ordered By: Angel Carter on 05-06-2023 Creatinine [Mass/Vol] 0.74 mg/dL 0.55-1.02 [facility] Comment on above: The validity of the calculated GFR & GFRAA in patients over 70 years has not been determined. Clinical correlation is essential. Serum or plasma urea nitroge n measurement (mass/volume)Ordered By: Angel Carter on 05-06-2023 Urea nitrogen [Mass/Vol] 9 mg/dL 7-18 [facility] Thin prep Papanicolaou smear with manual screeningOrdered By: Angel Carter on 05-06-2023 Thin prep Papanicolaou smear with manual screening 5 -15 [facility] SURGICAL PATHOLOGYon 023 Case Report Surgical Pathology R eport Case: [id number] Authorizing Provider: Nicole Velasquez MD Collected: 11/28/2022 09:26 AM Ordering Location: Ambulatory Surgery Received: 11/28/2022 02:17 PM Pathologist: Terrance Arriaga MD Specimens: A) - ANTRUM (STOMACH) BIOPSY, Antral biopsy for H & H B) - ESOPHAGOGASTRIC JUNCTION BIOPSY, GE junction biopsy C) - SPLENIC FLEXURE POLYP [facility] FINAL DIAGNOSIS A. Gastric antrum, b iopsy: - No significant pathologic change. - No morphologic evidence of Helicobacter pylori. B. Esophagogastric junction, biopsy: - Squamous mucosa with focal erosion and regenerative epithelial changes. - No evidence of intestinal metaplasia or dysplasia. - Small fragment of superficial columnar mucosa. C. Splenic flexure polyp, biopsy: - Tubular adenoma. JRG/ruy 12/01/2022 [facility] Gross Description A. ANTRUM (STOMACH) BIOPSY Received in formalin are two pieces of pruitt, soft tissue aggregating to 0.6 x 0.2 x 0.3 cm. Totally submitted in one cassette. B. ESOPHAGOGASTRIC JUNCTION BIOPSY Received in formalin is one piece of pruitt-white, soft tissue measuring 0.5 x 0.2 x 0.2 cm. Totally submitted in one cassette. C. SPLENIC FLEXURE POLYP Received in formalin is one piece of pruitt, soft tissue measuring 0.3 x 0.3 x 0.2 cm. Totally submitted in one cassette. KK November 29, 2022 12:51 AM Gross examination performed at [facility], [address] [place] [address] Performing Lab Diagnostic interpret ation performed at [facility], [address] [place] [address] CLIA# [id number] Pack Master: Raymond Gil M.D. [facility] COLONOSCOPY SCREENINGon 11-10 [facility] EGD DIAGNOSTICon 11-28-2022 [facility] NURSING PROGon 11-25-2022 NURSING PROG HNO ID: [id number] Author: Dion Maldonado RN Service: ? Author Type: Registered Nurse Type: Nursing Progress Note Filed: 11/25/2022 1:28 PM Note Text: During pre-procedure call with Jeremy Pena RN on 11/21/22, patient informed her that she had chest pain last week with nitro used x3. No ER follow up noted. Dr. Su from anesthesia reviewed this information and requests cardiac clearance from Dr. Delacruz prior to EGD/Colonoscopy scheduled on 11/[address] Velasquez. Clearance form faxed to Dr. Alvarez office in [place] on 11/21/22. Normal [facility] XR Knee - left 4 Viewson IMPRESSION: Osteoart hrosis Enterprise Data Architect: APARNA Transcribe Date/Time: Nov 02 2022 5:44P Dictated by : NICOLE GAYTAN MD This examination was interpreted and the report reviewed and electronically signed by: NICOLE GAYTAN MD on Nov 02 2022 5:45PM EST DIVISION OF RADIOLOGY * * *Final Report* * * DATE OF EXAM: Oct 31 2022 12:17PM WOX [id number] - XR KNEE 4V AP/PA BOTH+LAT/JERONIMO LT / PROCEDURE REASON: multiple diagnoses * * * * Physician Interpretation * * * * PROCEDURE: Left knee INDICATION: Chronic pain of left knee .Chronic worsening left knee pain. Right knee replacement 5 years ago. TECHNIQUE: XR KNEE 4V AP/PA BOTH+LAT/JERONIMO LT COMPARISON: None FINDINGS: Significant medial and mild patellofemoral joint compartment narrowing with tricompartment spur formation. Small enchondroma in the distal femur. No fracture. Small joint effusion. Right TKA is evident. DIVISION OF RADIOLOGY Provider, [facility] - 11/02/2022 * * *Final Report* * * DATE OF EXAM: Oct 31 2022 12:17PM WOX [id number] - XR KNEE 4V AP/PA BOTH+LAT/JERONIMO LT / PROCEDURE REASON: multiple diagnoses * * * * Physician Interpretation * * * * PROCEDURE: Left knee INDICATION: Chronic pain of left knee .Chronic worsening left knee pain. Right knee replacement 5 years ago. TECHNIQUE: XR KNEE 4V AP/PA BOTH+LAT/JERONIMO LT COMPARISON: None FINDINGS: Significant medial and mild patellofemoral joint compartment narrowing with tricompartment spur formation. Small enchondroma in the distal femur. No fracture. Small joint effusion. Right TKA is evident. IMPRESSION IMPRESSION: Osteoarthrosis Enterprise Data Architect: APARNA Transcribe Date/Time: Nov 02 2022 5:44P Dictated by : NICOLE GAYTAN MD This examination was interpreted and the report reviewed and electronically signed by: NICOLE GAYTAN MD on Nov 02 2022 5:45PM EST [facility] XR Knee - left 4 ViewsOrdere d By: [facility] Provider on 11-02-2022 [facility] XR Knee - left 4 View[facility] Radiology Study observation (narrative) [facility] HBA1C (OUTSIDE)on 06-24-2022 HbA1c (Bld) [Mass fraction] 7.0 % [facility] HbA1c (Bld)on 03-21-2022 Average glucose Estimated from glycated hemoglobin (Bld) [Mass/Vol] 166 mg/dL [facility] HbA1c (Bld) [Mass fraction] 7.4 % High 4.3 - 5.6 % [facility] Vital Signs Date Time Vital Sign Value Performing Clinician Facility 01-03-2025 20:06-0400 Body temperature 98.4 [degF] Dr. Mac Olvera MD Work Phone: 4(736)[phone] [place] [address] 01-03-2025 20:06-0400 Diastolic blood pressure 62 mm[Hg] Dr. Mac Olvera MD Work Phone: 8(289)277-133321 [place] [address] 01-03-2025 20:06-0400 Heart rate 67 /min Dr. Mac Olvera MD Work Phone: 7(893)972-945621 [place] [address] 01-03-2025 20:06-0400 Respiratory rate 18 /min Dr. Mac Olvera MD Work Phone: 2(093)622-594009 [place] [address] 01-03-2025 20:06-0400 SaO2% (BldA) [Mass fraction] 94 % Dr. Mac Olvera MD Work Phone: 3(826)[phone] [place] [address] 01-03-2025 20:06-0400 Systolic blood pressure 95 mm[Hg] Dr. Mac Olvera MD Work Phone: 5(134)133-196821 [place] [address] 01-03-2025 11:53-0400 Body height 167.[address] Mac Olvera MD Work Phone: 9(799)[phone] [place] [address] 01-03-2025 11:53-0400 Body mass index (BMI) [Ratio] 46 kg/m2 Dr. Mac Olvera MD Work Phone: 4(004)[phone] [place] [address] 01-03-2025 11:53-0400 Body weight 129.[address] Mac Olvera MD Work Phone: [facility] 01-03-2025 11:21-0400 Diastolic blood pressure 42 mm[Hg] Lauryn Suppan [employer]ION FORMER.[employer]ODUCTION ASSOCIATE Work Phone: [facility] 01-03-2025 11:21-0400 Systolic blood pressure 70 mm[Hg] Lauryn Suppan [employer] FORMER.[employer] PRODUCTION ASSOCIATE Work Phone: [facility] 01-03-2025 11:04-0400 Body mass index (BMI) [Ratio] 47.03 kg/m2 Lauryn Suppan [employer] FORMER.[employer] PRODUCTION ASSOCIATE Work Phone: [facility] 01-03-2025 11:04-0400 Body temperature 97.59 [degF] Lauryn Suppan C[employer]ION FORMER.[employer] PRODUCTION ASSOCIATE Work Phone: [facility] 01-03-2025 11:04-0400 Body weight 128.82 kg Lauryn Suppan C[employer]ION FORMER.[employer] PRODUCTION ASSOCIATE Work Phone: [facility] 01-03-2025 11:04-0400 Heart rate 84 /min Lauryn Suppan [employer]ION FORMER.[employer] PRODUCTION ASSOCIATE Work Phone: [facility] 01-03-2025 11:04-0400 SaO2% (BldA) [Mass fraction] 95 % Lauryn Suppan [employer] FORMER.[employer] PRODUCTION ASSOCIATE Work Phone: [facility] 12-22-2024 01:32-0400 Body temperature 99.2 [degF] Dr. Mac Olvera MD Work Phone: [facility] 12-22-2024 01:32-0400 Diastolic blood pressure 64 mm[Hg] Dr. Mac Olvera MD Work Phone: [facility] 12-22-2024 01:32-0400 Heart rate 76 /min Dr. Mac Olvera MD Work Phone: [facility] 12-22-2024 01:32-0400 Respiratory rate 18 /min Dr. Mac Olvera MD Work Phone: [facility] 12-22-2024 01:32-0400 SaO2% (BldA) [Mass fraction] 94 % Dr. Mac Olvera MD Work Phone: [facility] 12-22-2024 01:32-0400 Systolic blood pressure 107 mm[Hg] Dr. Mac Olvera MD Work Phone: [facility] 12-21-2024 21:29-0400 Body mass index (BMI) [Ratio] 46.7 kg/m2 Dr. Mac Olvera MD Work Phone: [facility] 12-21-2024 21:29-0400 Body weight 131.[address] Mac Olvera MD Work Phone: [facility] 12-21-2024 21:23-0400 Body height 167.[address] Mac Olvera MD Work Phone: [facility] 11-16-2024 11:28-0400 Body temperature 97.5 [degF] Adriana Mathis [employer] FORMER.[employer]ODUCTION ASSOCIATE Work Phone: [facility] 10-27-2024 13:56-0400 Diastolic blood pressure 76 mm[Hg] Lauryn Suppan C[employer] FORMER.[employer] PRODUCTION ASSOCIATE Work Phone: [facility] 10-27-2024 13:56-0400 Systolic blood pressure 130 mm[Hg] Lauryn Suppan C[employer]ION FORMER.[employer] PRODUCTION ASSOCIATE Work Phone: [facility] 10-27-2024 12:59-0400 Body mass index (BMI) [Ratio] 48.85 kg/m2 Lauryn Suppan [employer] FORMER.[employer] PRODUCTION ASSOCIATE Work Phone: [facility] 10-27-2024 12:59-0400 Body weight 133.81 kg Lauryn Suppan C[employer]ION FORMER.[employer] PRODUCTION ASSOCIATE Work Phone: [facility] 10-27-2024 12:59-0400 Heart rate 78 /min Lauryn Suppan [employer] FORMER.[employer] PRODUCTION ASSOCIATE Work Phone: [facility] 10-27-2024 12:59-0400 SaO2% (BldA) [Mass fraction] 95 % Lauryn Suppan [employer] FORMER.[employer] PRODUCTION ASSOCIATE Work Phone: [facility] 10-17-2024 13:54-0400 Body mass index (BMI) [Ratio] 48.68 kg/m2 Rc Delacruz MD Work Phone: [facility] 10-17-2024 13:54-0400 Body weight 133.36 kg Rc Delacruz MD Work Phone: [facility] 10-17-2024 13:54-0400 Diastolic blood pressure 89 mm[Hg] Rc Delacruz MD Work Phone: [facility] 10-17-2024 13:54-0400 Heart rate 82 /min Rc Delacruz MD Work Phone: [facility] 10-17-2024 13:54-0400 SaO2% (BldA) [Mass fraction] 94 % Rc Delacruz MD Work Phone: [facility] 10-17-2024 13:54-0400 Systolic blood pressure 148 mm[Hg] Rc Delacruz MD Work Phone: [facility] 04-21-2024 11:11-0400 Diastolic blood pressure 78 mm[Hg] Lauryn Suppan [employer]MER.[employer]ODUCTION ASSOCIATE Work Phone: [facility] 04-21-2024 11:11-0400 Systolic blood pressure 128 mm[Hg] Lauryn Suppan C[employer]ION FORMER.[employer] PRODUCTION ASSOCIATE Work Phone: [facility] 04-21-2024 10:18-0400 Body mass index (BMI) [Ratio] 48.19 kg/m2 Lauryn Suppan [employer] FORMER.[employer] PRODUCTION ASSOCIATE Work Phone: [facility] 04-21-2024 10:18-0400 Body weight 132 kg Lauryn Suppan C[employer] FORMER.[employer] PRODUCTION ASSOCIATE Work Phone: [facility] 04-21-2024 10:18-0400 Heart rate 87 /min Lauryn Suppan [employer]ION FORMER.[employer] PRODUCTION ASSOCIATE Work Phone: [facility] 04-21-2024 10:18-0400 Respiratory rate 14 /min Lauryn Suppan [employer] FORMER.[employer] PRODUCTION ASSOCIATE Work Phone: [facility] 04-21-2024 10:18-0400 SaO2% (BldA) [Mass fraction] 97 % Lauryn Baldwin [employer] FORMER.[employer] PRODUCTION ASSOCIATE Work Phone: [facility] 04-18-2024 10:42-0400 Body height 165.5 cm Shan[facility] [employer]MER.[employer] PRODUCTION ASSOCIATE Work Phone: [facility] 04-18-2024 10:42-0400 Body mass index (BMI) [Ratio] 48.35 kg/m2 Shan[facility] [employer]MER.[employer]ODUCTION ASSOCIATE Work Phone: [facility] 04-18-2024 10:42-0400 Body weight 132.45 kg Shan[facility] [employer]MER.[employer] PRODUCTION ASSOCIATE Work Phone: [facility] 04-18-2024 10:42-0400 Diastolic blood pressure 84 mm[Hg] Shan[facility] [employer]ION FORMER.[employer] PRODUCTION ASSOCIATE Work Phone: [facility] 04-18-2024 10:42-0400 Heart rate 80 /min Shan[facility] [employer] FORMER.[employer] PRODUCTION ASSOCIATE Work Phone: [facility] 04-18-2024 10:42-0400 Respiratory rate 14 /min [facility] [employer]MER.[employer] PRODUCTION ASSOCIATE Work Phone: [facility] 04-18-2024 10:42-0400 SaO2% (BldA) [Mass fraction] 96 % [facility] [employer]MER.[employer]ODUCTION ASSOCIATE Work Phone: [facility] 04-18-2024 10:42-0400 Systolic blood pressure 134 mm[Hg] Shan[facility] [employer]MER.[employer]ODUCTION ASSOCIATE Work Phone: [facility] 04-18-2024 10:38-0400 Body height 165.5 cm Pulm Wstr Work Phone: [facility] 04-18-2024 10:38-0400 Body mass index (BMI) [Ratio] 48.36 kg/m2 Pulm Wstr Work Phone: [facility] 04-18-2024 10:38-0400 Body weight 132.45 kg Pulm Wstr Work Phone: [facility] 04-18-2024 10:38-0400 Heart rate 83 /min Pulm Wstr Work Phone: [facility] 04-18-2024 10:38-0400 Respiratory rate 14 /min Pulm Wstr Work Phone: [facility] 04-18-2024 10:38-0400 SaO2% (BldA) [Mass fraction] 98 % Pulm Wstr Work Phone: [facility] 01-25-2024 10:47-0400 Body mass index (BMI) [Ratio] 46.81 kg/m2 Rc Delacruz MD Work Phone: [facility] 01-25-2024 10:47-0400 Body weight 131.54 kg Rc Delacruz MD Work Phone: [facility] 01-25-2024 10:47-0400 Diastolic blood pressure 82 mm[Hg] Rc Delacruz MD Work Phone: [facility] 01-25-2024 10:47-0400 Heart rate 72 /min Rc Delacruz MD Work Phone: [facility] 01-25-2024 10:47-0400 SaO2% (BldA) [Mass fraction] 96 % Rc Delacruz MD Work Phone: [facility] 01-25-2024 10:47-0400 Systolic blood pressure 128 mm[Hg] Rc Delacruz MD Work Phone: [facility] 11-09-2023 10:55-0400 Body mass index (BMI) [Ratio] 46.65 kg/m2 Mac Olvera MD Work Phone: [facility] 11-09-2023 10:55-0400 Body weight 131.09 kg Mac Olvera MD Work Phone: [facility] 11-09-2023 10:55-0400 Diastolic blood pressure 85 mm[Hg] Mac Olvera MD Work Phone: [facility] 11-09-2023 10:55-0400 Heart rate 80 /min Mac Olvera MD Work Phone: [facility] 11-09-2023 10:55-0400 SaO2% (BldA) [Mass fraction] 93 % Mac Olvera MD Work Phone: [facility] 11-09-2023 10:55-0400 Systolic blood pressure 160 mm[Hg] Mac Olvera MD Work Phone: [facility] 09-14-2023 10:21-0500 Body weight 130.32 kg [facility] [employer] ASSOCIATE Work Phone: [facility] 09-14-2023 10:21-0500 Diastolic blood pressure 86 mm[Hg] [facility] [employer]MER.[employer] PRODUCTION ASSOCIATE Work Phone: [facility] 09-14-2023 10:21-0500 Heart rate 63 /min [facility] [employer]MER.[employer]ODUCTION ASSOCIATE Work Phone: [facility] 09-14-2023 10:21-0500 Respiratory rate 20 /min [facility] [employer]MER.[employer] PRODUCTION ASSOCIATE Work Phone: [facility] 09-14-2023 10:21-0500 SaO2% (BldA) [Mass fraction] 98 % [facility] [employer] FORMER.[employer] PRODUCTION ASSOCIATE Work Phone: [facility] 09-14-2023 10:21-0500 Systolic blood pressure 138 mm[Hg] [facility] [employer]MER.[employer] PRODUCTION ASSOCIATE Work Phone: [facility] 08-18-2023 16:22-0500 Body height 167.6 cm Mac Olvera MD Work Phone: [facility] 08-18-2023 16:22-0500 Body weight 130.64 kg Mac Olvera MD Work Phone: [facility] 08-18-2023 16:22-0500 Diastolic blood pressure 74 mm[Hg] Mac Olvera MD Work Phone: [facility] 08-18-2023 16:22-0500 Heart rate 65 /min Mac Olvera MD Work Phone: [facility] 08-18-2023 16:22-0500 Systolic blood pressure 112 mm[Hg] Mac Olvera MD Work Phone: [facility] 05-07-2023 15:55-0400 Body temperature 97.5 [degF] Dr. Mac Olvera Work Phone: [facility] 05-07-2023 15:55-0400 Diastolic blood pressure 68 mm[Hg] Dr. Mac Olvera Work Phone: [facility] 05-07-2023 15:55-0400 Heart rate 69 /min Dr. Mac Olvera Work Phone: [facility] 05-07-2023 15:55-0400 Respiratory rate 18 /min Dr. Mac Olvera Work Phone: [facility] 05-07-2023 15:55-0400 SaO2% (BldA) [Mass fraction] 96 % Dr. Mac Olvera Work Phone: [facility] 05-07-2023 15:55-0400 Systolic blood pressure 125 mm[Hg] Dr. Mac Olvera Work Phone: [facility] 05-07-2023 02:50-0400 Body mass index (BMI) [Ratio] 47 kg/m2 Dr. Mac Olvera Work Phone: [facility] 05-07-2023 02:50-0400 Body weight [address] Mac Olvera Work Phone: [facility] 05-06-2023 18:52-0400 Body height 167.64 cm [facility] 05-06-2023 18:09-0400 Body temperature 93 [degF] [facility] 05-06-2023 18:09-0400 Diastolic blood pressure 85 mm[Hg] [facility] 05-06-2023 18:09-0400 Heart rate 63 /min [facility] 05-06-2023 18:09-0400 Respiratory rate 14 /min [facility] 05-06-2023 18:09-0400 SaO2% (BldA) [Mass fraction] 93 % [facility] 05-06-2023 18:09-0400 Systolic blood pressure 141 mm[Hg] [facility] 05-06-2023 12:00-0400 Body mass index (BMI) [Ratio] 47.5 kg/m2 [facility] 05-06-2023 12:00-0400 Body weight 133.4 kg [facility] 11-28-2022 10:31-0400 Diastolic blood pressure 76 mm[Hg] Nicole Velasquez MD Work Phone: [facility] 11-28-2022 10:31-0400 Heart rate 62 /min Nicole Velasquez MD Work Phone: [facility] 11-28-2022 10:31-0400 Respiratory rate 16 /min Nicole Velasquez MD Work Phone: [facility] 11-28-2022 10:31-0400 SaO2% (BldA) [Mass fraction] 97 % Nicole Velasquez MD Work Phone: [facility] 11-28-2022 10:31-0400 Systolic blood pressure 145 mm[Hg] Nicole Velasquez MD Work Phone: [facility] 11-28-2022 08:33-0400 Body temperature 97.7 [degF] Nicole Velasquez MD Work Phone: [facility] 10-31-2022 10:10-0400 Body height 167.6 cm Mac Olvera MD Work Phone: [facility] 10-31-2022 10:10-0400 Body weight 132.36 kg Mac Olvera MD Work Phone: [facility] 10-31-2022 10:10-0400 Diastolic blood pressure 82 mm[Hg] Mac Olvera MD Work Phone: [facility] 10-31-2022 10:10-0400 Heart rate 99 /min Mac Olvera MD Work Phone: [facility] 10-31-2022 10:10-0400 SaO2% (BldA) [Mass fraction] 96 % Mac Olvera MD Work Phone: [facility] 10-31-2022 10:10-0400 Systolic blood pressure 130 mm[Hg] Mac Olvera MD Work Phone: [facility] 09-30-2022 10:38-0400 Body height 167.6 cm Del[facility] PA-C Work Phone: [facility] 09-30-2022 10:38-0400 Body temperature 98.29 [degF] Delicia Elza PA-C Work Phone: [facility] 09-30-2022 10:38-0400 Body weight 133.81 kg Delicia Elza PA-C Work Phone: [facility] 09-30-2022 10:38-0400 Diastolic blood pressure 62 mm[Hg] Delicia Elza PA-C Work Phone: [facility] 09-30-2022 10:38-0400 Heart rate 106 /min Delicia Elza PA-C Work Phone: [facility] 09-30-2022 10:38-0400 SaO2% (BldA) [Mass fraction] 95 % [facility] PA-C Work Phone: [facility] 09-30-2022 10:38-0400 Systolic blood pressure 140 mm[Hg] Delicia Elza PA-C Work Phone: [facility] 06-30-2022 15:24-0500 Body weight 135.63 kg Rc Delacruz MD Work Phone: [facility] 06-30-2022 15:24-0500 Diastolic blood pressure 80 mm[Hg] Rc Delacruz MD Work Phone: [facility] 06-30-2022 15:24-0500 Heart rate 88 /min Rc Delacruz MD Work Phone: [facility] 06-30-2022 15:24-0500 Systolic blood pressure 130 mm[Hg] Rc Delacruz MD Work Phone: [facility] 02-05-2022 16:52-0400 Diastolic blood pressure 82 mm[Hg] Mac Olvera MD Work Phone: [facility] 02-05-2022 16:52-0400 Heart rate 60 /min Mac Olvera MD Work Phone: [facility] 02-05-2022 16:52-0400 Systolic blood pressure 132 mm[Hg] Mac Olvera MD Work Phone: [facility] 12-02-2021 15:44-0400 Body weight 134.26 kg Rc Delacruz MD Work Phone: [facility] 12-02-2021 15:44-0400 Diastolic blood pressure 80 mm[Hg] Rc Delacruz MD Work Phone: [facility] 12-02-2021 15:44-0400 Heart rate 72 /min Rc Delacruz MD Work Phone: [facility] 12-02-2021 15:44-0400 Systolic blood pressure 140 mm[Hg] Rc Delacruz MD Work Phone: [facility] Encounters Encounter Date Encounter Type Care Provider Facility Start: 01-03-2025 Evaluation and manag ement of inpatient Dr. Sara Marte MD -Medical Surgical 3 Work Phone: Start: 01-03-[address] Preet Olvera MD Work Phone: [facility] Work Phone: Start: 01-03-2025 End: 01-03-2025 Office outpatient visit 15 minutes Lauryn Baldwin C[employer]ION FORMER.[employer] ASSOCIATE Work Phone: [facility] Comment on above: Pyelonephritis (Prim grace Dx) Start: 12-22-2024 End: 12-27-2024 Refill Shanita Polk CUSHION FORMER.[employer] PRODUCTION ASSOCIATE Work Phone: Pulmonary Medicine Comment on above: Refill Request Start: 12-21-2024 End: 12-22-2024 Emergency department patient visit Dr. Mac Olvera MD Work Phone: -Emergency Department Work Phone: Start: 12-19-2024 End: 12-22-2024 Telephone encounter Lauryn Baldwin APRN.[employer] PRODUCTION ASSOCIATE Work Phone: [facility] Comment on above: Appointment Start: 2024 End: 2024 Refill Shanita Polk APRN.[employer]ODUCTION ASSOCIATE Work Phone: Pulmonary Medicine Comment on above: Refill Request Start: 11-22-2024 End: 11-22-2024 Refill Mac Olvear MD Work Phone: [facility] Comment on above: Refill Request Start: 11-16-2024 End: 11-16-2024 Admission to same day surgery center Adriana Mathis SAMANTHA.[employer]ODUCTION ASSOCIATE Work Phone: General Surgery Comment on above: skin pathology Start: 11-16-2024 End: 11-16-2024 E-mail encounter from caregiver Adriana Mathis SAMANTHA.[employer] ASSOCIATE Work Phone: General Surgery Start: 11-16-2024 End: 11-16-2024 Patient encounter procedure Adriana Mathis SAMANTHA.[employer]ODUCTION ASSOCIATE Work Phone: General Surgery Comment on above: Sebaceous cyst (Prim grace Dx); Neoplasm of skin of chest Start: 11-16-2024 End: 11-16-2024 ambulatory ADRIANA BLAIR Facility:[facility] Start: 11-10-2024 End: 11-10-2024 Patient encounter procedure Hanna Jones MD Work Phone: General Surgery Comment on above: Sebaceous cyst (Prim grace Dx) Start: 11-10-2024 End: 11-10-2024 ambulatory HANNA JONES Facility:[facility] Start: 11-02-2024 End: 11-02-2024 ambulatory HANNA JONES Facility:[facility] Start: 10-31-2024 End: 12-31-2024 Follow-up encounter Lauryn Baldwin APRN.[employer] PRODUCTION ASSOCIATE Work Phone: [facility] Start: 10-27-2024 End: 10-27-2024 ambulatory LAURYN Cifuentes FABIDUYEN Facility:[facility] Start: 10-27-2024 End: 10-27-2024 Office outpatient visit 25 minutes Lauryn Vane Tanner HECTOR Work Phone: [facility] Comment on above: S/P CABG x 2 (Primar y Dx); Type 2 diabetes mellitus without complication, without long-term current use of insulin (HCC); Tobacco use disorder; Coronary artery disease involving upper [place] coronary artery of upper matt[place] heart without angina pectoris; Essential hypertension; Enlarged aorta; Dental caries; Degeneration of intervertebral disc of lumbar region with discogenic back pain; Neoplasm of skin Start: 10-27-2024 End: 10-27-2024 ambulatory LAURYN BALDWIN Facility:[facility] Start: 10-25-2024 End: 10-25-2024 Refill Mac Olvera MD Work Phone: [facility] Comment on above: Refill Request Start: 10-17-2024 End: 10-17-2024 ambulatory RC DELACRUZ Facility:[facility] Start: 10-17-2024 End: 10-17-2024 Patient encounter procedure Rc Delacruz MD Work Phone: Cardiology Comment on above: Coronary artery dise ase involving upper [place] coronary artery of upper [place] heart without angina pectoris (Primary Dx); NSVT (nonsustained ventricular tachycardia) (HCC); Primary hypertension; Other hyperlipidemia; Palpitations; Carotid artery stenosis, asymptomatic, bilateral; Morbid obesity (HCC) Start: 10-11-2024 End: 11-11-2024 ambulatory Mac Olvera MD Work Phone: [facility] Start: 09-28-2024 End: 09-28-2024 Refill Mac Olvera MD Work Phone: [facility] Comment on above: Refill Request Start: 07-25-2024 End: 07-25-2024 Refill Mac Olvera MD Work Phone: [facility] Comment on above: Refill Request Start: 07-18-2024 End: 07-18-2024 Refill Mac Olvera MD Work Phone: [facility] [place] Comment on above: Refill Request Start: 07-05-2024 End: 07-05-2024 E-mail encounter from caregiver Shanita Polk SHIFT PRODUCTION ASSOCIATE Work Phone: Pulmonary Medicine Start: 07-05-2024 End: 07-05-2024 Follow-up encounter Shanita Polk SHIFT PRODUCTION ASSOCIATE Work Phone: Pulmonary Medicine Comment on above: Inhaler follow up Start: 06-20-2024 End: 06-20-2024 Refill Mac Olvera MD Work Phone: [facility] [place] Comment on above: Refill Request Start: 05-26-2024 End: 05-26-2024 ambulatory [facility]ita [facility] SINGH.SHIFT PRODUCTION ASSOCIATE Work Phone: Pulmonary Medicine Comment on above: PFT results Start: 05-26-2024 End: 05-26-2024 E-mail encounter from caregiver Shanita Polk SAMANTHA.SHIFT PRODUCTION ASSOCIATE Work Phone: Pulmonary Medicine Start: 04-22-2024 End: 05-26-2024 Telephone encounter Shanita Polk SHIFT PRODUCTION ASSOCIATE Work Phone: [facility] Pulmonary Comment on above: Results Start: 04-21-2024 End: 04-21-2024 ambulatory LAURYN BALDWIN Facility:[facility] Start: 04-21-2024 End: 04-21-2024 Office outpatient visit 25 minutes Lauryn Baldwin CUSHION FORMER.SHIFT PRODUCTION ASSOCIATE Work Phone: [facility] Comment on above: Other chronic pain ( Primary Dx); Encounter for immunization; Primary hypertension; S/P CABG x 2; Tobacco use disorder; Coronary artery disease involving upper mattaponi coronary artery of upper mattaponi heart without angina pectoris; Enlarged aorta (HCC); Degeneration of intervertebral disc of lumbar region with discogenic back pain; Essential hypertension; Type 2 diabetes mellitus without complication, without long-term current use of insulin (HCC); Screening for osteoporosis; Asymptomatic menopause Start: 04-18-2024 End: 04-18-2024 ambulatory Pulm Lab [facility] Work Phone: PULM [facility] Comment on above: Spirometry Start: 04-18-2024 End: 04-18-2024 Patient encounter procedure Pulm [facility] Work Phone: PULM LAB [facility] Comment on above: Lung nodules (Primar y Dx); Tobacco use current; Encounter for screening for lung cancer Start: 04-18-2024 End: 04-18-2024 Subsequent hospital visit by physician [facility] ([facility]) Work Phone: Cat Scan Comment on above: Lung nodules [R91.8] Start: 04-18-2024 End: 04-18-2024 ambulatory [facility] Facility:[facility] Start: 04-04-2024 End: 04-04-2024 Refill Mac Olvera MD Work Phone: [facility] [place] Comment on above: Refill Request Start: 03-31-2024 End: 03-31-2024 Telephone encounter Mac Olvera MD Work Phone: Family [facility] [place] Comment on above: Lab Orders Start: 03-17-2024 End: 03-17-2024 Refill Mac Olvera MD Work Phone: [facility] [place] Comment on above: Refill Request Start: 01-29-2024 End: 01-29-2024 ambulatory [facility] Facility:[facility] Start: 01-29-2024 End: 01-29-2024 Subsequent hospital visit by physician Us [facility] 2 Work Phone: Radiology Comment on above: Enlarged aorta (HCC) [I77.89] Start: 01-27-2024 Telephone encounter Mac Olvera MD Work Phone: Family [facility] Comment on above: Results Start: 01-25-2024 Telephone encounter Mac Olvera MD Work Phone: [facility] [place] Comment on above: Orders Start: 01-25-2024 End: 01-25-2024 Subsequent hospital visit by physician Brian [facility] [place] [facility] Work Phone: Radiology Comment on above: DDD (degenerative di sc disease), lumbar [M51.36] Start: 01-25-2024 End: 01-25-2024 ambulatory RC DELACRUZ Facility:[facility] Start: 01-25-2024 End: 01-25-2024 Patient encounter procedure Rc Delacruz MD Work Phone: Cardiology Comment on above: Coronary artery dise ase involving upper mattaponi coronary artery of upper mattaponi heart without angina pectoris (Primary Dx); NSVT (nonsustained ventricular tachycardia) (HCC); Primary hypertension; Other hyperlipidemia; Carotid artery stenosis, asymptomatic, bilateral; Obesity, Class III, BMI >= 40; Pre-operative cardiovascular examination; Hyperlipidemia, mixed Start: 01-25-2024 End: 01-25-2024 Patient encounter status Rc Delacruz MD Work Phone: [facility] Start: 11-12-2023 Telephone encounter Mac Olvera MD Work Phone: [facility] [place] Comment on above: Insurance Authorizat ion (ozempic) Start: 11-11-2023 ambulatory No Pcp [facility]MER [facility] [place] Start: 11-11-2023 Patient encounter procedure No Pcp CUSHION FORMER [facility] [place] Start: 11-11-2023 Telephone encounter Mac Olvera MD Work Phone: [facility] [place] Comment on above: Results Start: 11-10-2023 Telephone encounter Mac Olvera MD Work Phone: [facility] Comment on above: Appointment Start: 11-09-2023 End: 11-09-2023 Patient encounter procedure Mac Olvera MD Work Phone: [facility] [place] Comment on above: Primary hypertension (Primary Dx); Type 2 diabetes mellitus without complication, without long-term current use of insulin (HCC); Coronary artery disease involving upper mattaponi coronary artery of upper mattaponi heart without angina pectoris; S/P CABG x 2; Gastroesophageal reflux disease with esophagitis without hemorrhage; Carotid artery stenosis, asymptomatic, bilateral; DDD (degenerative disc disease), lumbar; Acute pain of right shoulder; Chronic right shoulder pain; Dysuria; Screening breast examination Start: 11-08-2023 Refill Mac Olvera MD Work Phone: [facility] [place] Comment on above: Refill Request Start: 11-01-2023 Refill Mac Olvera MD Work Phone: [facility] Comment on above: Refill Request Start: 09-30-2023 End: 09-30-2023 Subsequent hospital visit by physician [facility] ([facility]) Work Phone: Cat Scan Comment on above: Tobacco use current [Z72.0] Start: 09-15-2023 ambulatory Mac Olvera MD Work Phone: [facility] [place] Start: 09-15-2023 Follow-up encounter Mac Olvera MD Work Phone: [facility] Comment on above: Follow up Start: 09-14-2023 End: 09-14-2023 Patient encounter procedure Shanita Polk CUSHION FORMER.SHIFT PRODUCTION ASSOCIATE Work Phone: Pulmonary Medicine Comment on above: Encounter for screen ing for lung cancer (Primary Dx); Tobacco use current Refill Request Start: 09-08-2023 Telephone encounter Lauryn Baldwin CUSHION FORMER.SALVAGE REPAIRER Work Phone: [facility] Comment on above: Refill Request Start: 09-08-2023 End: 09-08-2023 Subsequent hospital visit by physician [facility] 2 Work Phone: Radiology Comment on above: Elevated liver enzym es [R74.8] Start: 08-27-2023 Telephone encounter Mac Olvera MD Work Phone: Pulmonology [facility] Comment on above: Results Erroneous encounter- disregard Start: 08-18-2023 End: 08-18-2023 Patient encounter procedure Mac Olvera MD Work Phone: [facility] [place] Comment on above: Chest pain, unspecif ied type (Primary Dx); Type 2 diabetes mellitus without complication, without long-term current use of insulin (HCC); NSVT (nonsustained ventricular tachycardia) (HCC); Other hyperlipidemia; Primary hypertension; Coronary artery disease involving upper mattaponi coronary artery of upper mattaponi heart without angina pectoris; Morbid obesity (HCC); Carotid artery stenosis, asymptomatic, bilateral; Dysuria; ASHD (arteriosclerotic heart disease); Tobacco use; PASCUAL (obstructive sleep apnea) Start: 08-18-2023 Telephone encounter Mac Olvera MD Work Phone: [facility] Comment on above: Appointment (I tried to get Carol into the [employer] [facility] sooner than her January appointment as requested with any of the [facility] providers but there were no appointments available. She is unable to travel to any other location for Cardiology.) Start: 06-16-2023 Refill [facility] MD [facility] Comment on above: Refill Request Start: 05-11-2023 Patient Outreach Mac whyte MD Work Phone: [facility] Comment on above: Transition Of Care Start: 05-07-2023 Non-patient / Non-visit Dr. Herman Olvera Work Phone: [facility] Work Phone: Start: 05-07-2023 Non-patient / Non-visit Dr. Herman Olevra Work Phone: [facility] Start: 05-06-2023 End: 05-07-2023 Evaluation and management of inpatient [facility] Work Phone: Start: 05-06-2023 End: 05-07-[address] Mac Olvera Work Phone: [facility] Work Phone: Start: 05-01-2023 Telephone encounter Mac Olvera MD Work Phone: [facility] Comment on above: Results; Patient Que stion Start: 04-24-2023 Refill Mac Olvera MD Work Phone: [facility] Comment on above: Refill Request Start: 01-14-2023 ambulatory Mac Olvera MD Work Phone: [facility] Start: 12-24-2022 Refill Mac Olvera MD Work Phone: [facility] Comment on above: Refill Request Start: 11-28-2022 End: 11-28-2022 Subsequent hospital visit by physician Nicole Velasquez MD Work Phone: Ambulatory Surgery Comment on above: History of colonic p olyps [Z86.010] Start: 11-05-2022 Telephone encounter Mac Olvera MD Work Phone: Family [facility] Comment on above: Medication Question Start: 11-04-2022 Telephone encounter Mac Olvera MD Work Phone: Family [facility] Comment on above: referral problem Start: 11-03-2022 Telephone encounter Mac Olvera MD Work Phone: [facility] Comment on above: lab and xray results Start: 10-31-2022 End: 10-31-2022 Subsequent hospital visit by physician Brian [facility] [place] Work Phone: Radiology Comment on above: Chronic pain of left knee [M25.562, G89.29] Start: 10-31-2022 End: 10-31-2022 Patient encounter procedure Mac Olvera MD Work Phone: [facility] [place] Comment on above: Primary hypertension (Primary Dx); Screening for HIV (human immunodeficiency virus); Chronic pain of left knee; Coronary artery disease involving upper mattaponi coronary artery of upper mattaponi heart without angina pectoris; S/P CABG x 2; Other hyperlipidemia; Type 2 diabetes mellitus without complication, without long-term current use of insulin (HCC); Urinary frequency Start: 10-23-2022 Refill Mac Olvera MD Work Phone: [facility] Comment on above: Refill Request Start: 09-30-2022 End: 09-30-2022 Patient encounter procedure Delicia Bertrand PA-C Work Phone: General Surgery Comment on above: Encounter for screen ing for malignant neoplasm of colon (Primary Dx); History of colonic polyps; Morbid obesity (HCC); Abdominal wall bulge; Bilateral upper abdominal discomfort; Gastroesophageal reflux disease, unspecified whether esophagitis present Start: 09-25-2022 Refill Mac Olvera MD Work Phone: [facility] [place] Comment on above: Refill Request Start: 07-11-2022 Chart abstracting Mac Emerson MD Work Phone: Family [facility] Start: 06-30-2022 End: 06-30-2022 Patient encounter procedure Rc Delacruz MD Work Phone: Cardiology Comment on above: Coronary artery dise ase involving upper mattaponi coronary artery of upper mattaponi heart without angina pectoris (Primary Dx); Primary hypertension; NSVT (nonsustained ventricular tachycardia); Other hyperlipidemia; Palpitations Start: 03-19-2022 Telephone encounter Mac Olvera MD Work Phone: [facility] Comment on above: Results Start: 02-05-2022 End: 02-05-2022 Patient encounter procedure Mac Olvera MD Work Phone: [facility] [place] Comment on above: NSVT (nonsustained v entricular tachycardia) (HCC) (Primary Dx); Essential hypertension; Hyperlipidemia, mixed; Shortness of breath; Coronary artery disease involving upper mattaponi coronary artery of upper mattaponi heart without angina pectoris; Primary hypertension; Other hyperlipidemia; Tobacco use disorder; Type 2 diabetes mellitus without complication, without long-term current use of insulin (HCC); Carotid artery stenosis, asymptomatic, bilateral; Bilateral carotid artery stenosis; Screening breast examination; Rectal bleeding; Supraclavicular fossa fullness Start: 01-28-2022 Telephone encounter Hanna Jones MD Work Phone: General Surgery Comment on above: Referral Request Start: 12-24-2021 Refill Mac Olvera MD Work Phone: [facility] [place] Comment on above: Refill Request Start: 12-02-2021 End: 12-02-2021 Patient encounter procedure Rc Delacruz MD Work Phone: Cardiology Comment on above: Coronary artery dise ase involving upper mattaponi coronary artery of upper mattaponi heart without angina pectoris (Primary Dx); Primary hypertension; Other hyperlipidemia; Palpitations; Tobacco use disorder; Shortness of breath; ASHD (arteriosclerotic heart disease); Carotid artery stenosis, asymptomatic, bilateral; NSVT (nonsustained ventricular tachycardia) (HCC) Start: 09-11-2021 Telephone encounter Mac Olvera MD Work Phone: [facility] [place] Comment on above: Appointment Referral Request Start: 06-11-2018 Ambulatory KRISTEN BEAN Facility :[facility] Start: 10-09-2017 End: 10-09-2017 Ambulatory [facility] Facility:[facility] Start: 09-16-2017 [facility] Facility :[facility] Procedures Date Procedure Procedure Detail Performing Clinician Start: 01-03-2025 Computed tomography of abdomen and pelvis with intravenous contrast Dr. Mac Olvera MD Work Phone: Start: 01-03-2025 Urnls dip stick/tablet reagent auto microscopy Dr. Mac Olvera MD Work Phone: Start: 01-03-[address] Omar Olvera MD Work Phone: Start: 12-21-[address] Omar Olvera MD Work Phone: Start: 12-21-2024 Urnls dip stick/tablet reagent auto microscopy Dr. Mac Olvera MD Work Phone: Start: 12-21-2024 Computed tomography of abdomen and pelvis with intravenous contrast Dr. Mac Olvera MD Work Phone: Start: 12-21-[address] Mac Olvera MD Work Phone: Start: 12-21-2024 Identification procedure for living organism Dr. Mac Olvera MD Work Phone: Start: 12-21-[address] Mac Olvera MD Work Phone: Start: 11-16-2024 Follow-up visit Follow Up [facility] Start: 04-18-2024 Co diffusing capacity Shanita Polk CUSHION FORMER.SHIFT PRODUCTION ASSOCIATE Work Phone: Start: 04-18-2024 Ct thorax w/o contrast material Shanita Polk CUSHION FORMER.SHIFT PRODUCTION ASSOCIATE Work Phone: Start: 04-18-2024 Lipid 1996 panel - Serum or Plasma Omar Olvera MD Work Phone: Start: 01-29-2024 Us retroperitoneal real time w/image limited Mac Olvera MD Work Phone: Start: 11-09-2023 Adult depression screening assessment Mac Olvera MD Work Phone: Start: 09-30-2023 CT LUNG SCREEN ELLIE Polk CUSHION FORMERLaviniaSHIFT PRODUCTION ASSOCIATE Work Phone: Start: 09-08-2023 Us abdominal real time w/image limited Mac Olvera MD Work Phone: Start: 08-18-2023 Urnls dip stick/tablet rgnt auto w/o microscopy Mac Olvear MD Work Phone: Start: 08-18-2023 Ecg routine ecg w/least 12 lds i&r only [facility] Provider Start: 05-07-2023 Cardiovascular stress test using pharmacologic stress agent Dr. Mac Olvera Work Phone: Start: 05-06-2023 Plain chest X-ray Start: 11-28-2022 Level iv surg pathology gross&microscopic exam Nicole Velasquez MD Work Phone: Start: 11-28-2022 Esophagogastroduodenoscopy transoral diagnostic Delicia Bertrand PA-C Work Phone: Start: 11-28-2022 Colonoscopy flx dx w/collj spec when pfrmd Delicia Bertrand PA-C Work Phone: Start: 11-28-2022 Colonoscopy Mac Olvera MD Work Phone: Start: 10-31-2022 Radiologic exam knee complete 4/more views Mac Olvera MD Work Phone: Start: 06-24-2022 Hemoglobin A1c/Hemoglobin.total in Blood [facility] Provider Start: 08-21-2020 Mammography Rc Delacruz MD Work Phone: Start: 12-10-2017 Colonoscopy Rc Delacruz MD Work Phone: Start: 04-25-2016 History of coronary artery bypass grafting S/P CABG x 2 Rc Delacruz MD Work Phone: Start: 12-06-2015 Adult depression screening assessment Rc Delacruz MD Work Phone: Start: 10-17-2015 History of coronary artery bypass grafting S/P CABG x 2 Comment on above: @ [facility] per Dr. Massimo Parra 2018: History of coronary artery bypass grafting S/P CABG x 2 Mac Olvera MD Work Phone: History of coronary artery bypass grafting S/P CABG x 2 Mac Olvera MD Work Phone: History of coronary artery bypass grafting S/P CABG x 2 Lauryn Vane Suppan CUSHION FORMER.SHIFT PRODUCTION ASSOCIATE Work Phone: History of coronary artery bypass grafting S/P CABG x 2 Mac Olvera MD Work Phone: History of coronary artery bypass grafting S/P CABG x 2 Lauryn Vane Suppan CUSHION FORMER.SHIFT PRODUCTION ASSOCIATE Work Phone: Plan of Treatment Date Care Activity Detail Author Start: 04-18-2029 Lipid panel Lipid Screening [facility] Start: 02-06-2028 Urine microalbumin profile [facility] Start: 11-29-2027 Colonoscopy COLONOSCOPY [facility] Start: 11-29-2027 COLORECTAL CANCER SCREENING COLORECTAL CANCER SCREENING [facility] Start: 11-29-2027 Screening for malignant neoplasm of colon [facility] Start: 04-18-2027 Diabetes Screening Diabetes Screening [facility] Start: 01-03-2026 Annual PCP Team Chronic Disease Visit Annual PCP Team Chronic Disease Visit [facility] Start: 10-27-2025 Annual PCP Team Chronic Disease Visit Annual PCP Team Chronic Disease Visit [facility] Start: 10-16-2025 End: 10-16-2025 Patient encounter procedure 10/16/2025 11:00 AM EDT Office Visit Cardiology [address] [place] [address] Rc Delacruz MD [address] [facility] [address] [place], [place] [id number] 6 month follow up Cardiology Comment on above: 6 month follow up Start: 05-08-2025 End: 05-08-2025 Patient encounter procedure 05/08/2025 3:00 PM EDT Office Visit [facility] [place] [address] [facility] [place] [id number] Mac Olvera MD [address] [facility] [place] [address] 6 month exam [facility] Comment on above: 6 month exam Start: 04-28-2025 Hemoglobin A1c measurement HbA1C [facility] Start: 04-24-2025 End: 04-24-2025 Patient encounter procedure Cat Scan Comment on above: yearly LDCT yearly LCS Start: 04-21-2025 Annual PCP Team Chronic Disease Visit Annual PCP Team Chronic Disease Visit [facility] Start: 04-21-2025 BP Controlled (<130/80) BP Controlled (<130/80) [facility] Start: 04-21-2025 Covid-19 Vaccine () Covid-19 Vaccine () [facility] Comment on above: Postponed from 03/13/2024 (Declined at t his time) Start: 04-18-2025 Hepatitis B screening Urine Albumin:Creatinine Ratio [facility] Start: 04-18-2025 Hepatitis B surface antibody level LDL Cholesterol [facility] Start: 04-18-2025 Screening for malignant neoplasm of lung Lung Cancer Screening [facility] Start: 04-11-2025 Glaucoma screening Dilated Retinal Exam [facility] Start: 01-03-2025 Verification routine [facility] Start: 01-03-2025 Admission procedure [facility] Start: 01-03-2025 Hospital admission, emergency, from emergency room, medical nature [facility] Start: 01-03-2025 [facility] Start: 01-03-2025 Bacteria identified in Blood by Culture Blood Culture [facility] Start: 01-03-2025 Bacteria identified in Urine by Culture Urine Culture [facility] Start: 01-03-2025 End: 01-03-2025 [facility] Start: 01-03-2025 End: 01-03-2025 Patient encounter procedure 01/03/2025 11:00 AM EDT Office Visit Family [facility] [address] [place] [address] Lauryn Baldwin APRN.SHIFT PRODUCTION ASSOCIATE [address] [facility] [place] [id number] [facility] Hosp follow up D/C 12/21 side pain [facility] Comment on above: [facility] Hosp follow up D/C 12/21 side pain Start: 12-21-2024 End: 12-22-2024 [facility] Start: 12-21-2024 Bacteria identified in Blood by Culture Blood Culture [facility] Start: 12-21-2024 Bacteria identified in Urine by Culture Urine Culture [facility] Start: 2024 End: 2024 Patient encounter procedure 2024 12:30 PM EDT Office Visit Vasculary Surgery [address] [place] [address] Dx: Carotid artery stenosis, asymptomatic, bilateral [I65.23] Vasculary Surgery Comment on above: Dx: Carotid artery stenosis, asymptomati c, bilateral [I65.23] Start: 11-16-2024 End: 11-16-2024 Patient encounter procedure 11/16/2024 11:30 AM EDT Office Visit General Surgery [address] [place] [address] Adriana Mathis APRN.SHIFT PRODUCTION ASSOCIATE [address] [place] [address] 5 DAYS SUTURE REMOVAL / REVIEW PATH REPORT General Surgery Comment on above: 5 DAYS SUTURE REMOVAL / REVIEW PATH REPO RT Start: 11-08-2024 Annual PCP Team Chronic Disease Visit Annual PCP Team Chronic Disease Visit [facility] Start: 11-08-2024 Anxiety Screening Anxiety Screening [facility] Start: 11-08-2024 Covid-19 Vaccine ( season) Covid-19 Vaccine ( season) [facility] Comment on above: Postponed from 03/13/2023 (Declined at t his time) Start: 11-08-2024 Depression Screening Depression Screening [facility] Start: 11-08-2024 Pneumococcal vaccination Pneumococcal Vaccine (2 of 2 - PCV) [facility] Comment on above: Postponed from 08/02/2015 (Declined at t his time) Start: 11-08-2024 Shingrix Vaccine (1 of 2) Shingrix Vaccine (1 of 2) [facility] Comment on above: Postponed from 2008 (Declined at t his time) Start: 11-02-2024 End: 11-02-2024 Patient encounter procedure 11/02/2024 11:15 AM EDT Office Visit General Surgery [address] [place] [address] Hanna Jones MD [address] [place], [place] [phone] : Irreg skin lesion- pruitt in color- states getting bigger General Surgery Comment on above: : Irreg skin lesion- pruitt in color- state s getting bigger Start: 10-27-2024 End: 01-26-2025 Cobalamin (Vitamin B12) [Mass/volume] in Serum or Plasma [facility] Comment on above: Expected: 10/27/2024, Expires: Start: 10-27-2024 End: 01-26-2025 Hemoglobin A1c in Blood [facility] Comment on above: Expected: 10/27/2024, Expires: Start: 10-27-2024 End: 01-26-2025 Magnesium [Mass/volume] in Serum or Plasma [facility] Comment on above: Expected: 10/27/2024, Expires: Start: 10-27-2024 End: 01-26-2025 Thyrotropin [Units/volume] in Serum or Plasma [facility] Work Phone: Comment on above: Expected: 10/27/2024, Expires: Start: 10-27-2024 End: 10-27-2024 Patient encounter procedure 10/27/2024 1:40 PM EDT Office Visit Family [facility] [place] [address] [facility], [place] [id number] Lauryn Baldwin APRN.SHIFT PRODUCTION ASSOCIATE [address] [facility], [place] [id number] follow up 6 months [facility] Comment on above: follow up 6 months Start: 10-20-2024 Diabetic foot examination Diabetic Foot Ex[facility] Comment on above: Postponed from 02/05/2023 (Postponed To Appropriate Date) Start: 10-17-2024 End: 10-17-2024 Patient encounter procedure Cardiology Comment on above: 9 month follow up Start: 10-17-2024 Hemoglobin A1c measurement HbA1C [facility] Start: 09-29-2024 Screening for malignant neoplasm of lung Lung Cancer Screening [facility] Start: 08-26-2024 Hepatitis B surface antibody level LDL Cholesterol [facility] Start: 08-18-2024 Annual PCP Team Chronic Disease Visit Annual PCP Team Chronic Disease Visit [facility] Start: 08-18-2024 BP Controlled (<130/80) BP Controlled (<130/80) [facility] Start: 08-18-2024 RSV Vaccine (1 - 1-dose 60+ series) RSV Vaccine (1 - 1-dose 60+ series) [facility] Comment on above: Postponed from 2018 (Declined at t his time) Start: 08-18-2024 RSV Vaccine (1 - Risk 60-74 years 1-dose series) RSV Vaccine (1 - Risk 60-74 years 1-dose series) [facility] Comment on above: Postponed from 2018 (Declined at t his time) Start: 07-13-2024 Advance Directive Discussion Advance Directive Discussion [facility] Start: 07-11-2024 End: 07-11-2024 Patient encounter procedure 07/11/2024 12:45 PM EST Office Visit Pulmonary Medicine [address] [place] [address] Ena Carpenter MD [address] [address] Asthma-COPD overlap syndrome (HCC) [J44.89] Pulmonary Medicine Comment on above: Asthma-COPD overlap syndrome (HCC) [J44. 89] Start: 05-19-2024 End: 05-19-2024 Patient encounter procedure 05/19/2024 1:00 PM EST Office Visit [facility] [address] [place], [place] [phone] Lauryn Baldwin APRN.[employer] PRODUCTION ASSOCIATE [address] [place], [place] [phone] follow up 4 weeks Family [facility] Comment on above: follow up 4 weeks Start: 05-10-2024 Hemoglobin A1c measurement HbA1C [facility] Start: 05-06-2024 Annual PCP Team Chronic Disease Visit Annual PCP Team Chronic Disease Visit [facility] Start: 04-21-2024 End: 04-21-2024 Patient encounter procedure 04/21/2024 10:40 AM EDT Office Visit Family [facility] [address] [place], [place] [address] Lauryn Baldwin APRN.[employer] PR[employer] ASSOCIATE [address] [place], [place] [id number] 6 month follow up Family Tyler Rocha Comment on above: 6 month follow up Start: 04-18-2024 End: 04-18-2024 ambulatory PULM LAB [facility] Comment on above: Pulmonary emphysema, unspecified emphyse ma type (HCC) [J43.9] Start: 04-18-2024 End: 04-18-2024 Patient encounter procedure Cat Scan Comment on above: Lung nodules [R91.8] Pulmonary emphysema, unspecified emphysema type (HCC) [J43.9] Start: 04-12-2024 End: 07-13-2024 Comprehensive metabolic 2000 panel - Serum or Plasma COMPREHENSIVE METABOLIC PANEL Lab Routine Coronary artery disease involving upper [place] coronary artery of upper [place] heart without angina pectoris Hyperlipidemia, mixed Expected: 04/12/2024, Expires: 07/13/2024 [facility] Work Phone: Comment on above: Expected: 04/12/2024, Expires: Start: 04-12-2024 End: 07-13-2024 Lipid 1996 panel - Serum or Plasma LIPID PANEL BASIC Lab Routine Hyperlipidemia, mixed Expected: 04/12/2024, Expires: 07/13/2024 [facility] Comment on above: Expected: 04/12/2024, Expires: Start: 04-03-2024 Glaucoma screening Dilated Retinal Exam [facility] Start: 04-03-2024 Hepatitis C antibody, confirmatory test Dilated Retinal Exam [facility] Start: 03-31-2024 End: 06-30-2024 CBC W Auto Differential panel - Blood COMPLETE BLOOD COUNT AND DIFFERENTIAL Lab Routine Type 2 diabetes mellitus without complication, without long-term current use of insulin (HCC) Coronary artery disease involving upper [place] coronary artery of upper [place] heart without angina pectoris Expected: 03/31/2024, Expires: 06/30/2024 [facility] Comment on above: Expected: 03/31/2024, Expires: Start: 03-31-2024 End: 06-30-2024 Hemoglobin A1c in Blood HEMOGLOBIN A1C Lab Routine Type 2 diabetes mellitus without complication, without long-term current use of insulin (HCC) Expected: 03/31/2024, Expires: 06/30/2024 [facility] Work Phone: Comment on above: Expected: 03/31/2024, Expires: Start: 03-31-2024 End: 06-30-2024 Microalbumin/Creatinine [Mass Ratio] in Urine ALBUMIN/CREATININE RATIO, URINE Lab Routine Type 2 diabetes mellitus without complication, without long-term current use of insulin (HCC) Expected: 03/31/2024, Expires: 06/30/2024 [facility] Comment on above: Expected: 03/31/2024, Expires: Start: 03-24-2024 End: 03-24-2024 Patient encounter procedure 03/24/2024 11:30 AM EDT Office Visit [facility] [address] [place] [address] Casey Cabrera MD [address] [facility] [address] [place] [address] DDD (degenerative disc disease), lumbar [M51.36] [facility] Comment on above: DDD (degenerative disc disease), lumbar [M51.36] Start: 03-13-2024 Covid-19 Vaccine ( season) Covid-19 Vaccine () [facility] Start: 03-13-2024 Covid-19 Vaccine () Covid-19 Vaccine ( season) [facility] Start: 03-13-2024 Influenza vaccination Influenza Vaccine (#1) [facility] Start: 02-24-2024 Hemoglobin A1c measurement HbA1C [facility] Start: 01-25-2024 End: 02-23-2025 XR Shoulder - right 3 Views [facility] Work Phone: Comment on above: Expected: 01/25/2024, Expires: Start: 01-25-2024 End: 01-25-2024 Patient encounter procedure 01/25/2024 11:00 AM EDT Office Visit Cardiology [address] [place] [phone] Rc Delacruz MD [address] [place] [address] 6 month follow up Cardiology Comment on above: 6 month follow up Start: 12-09-2023 Advance Directive Discussion Advance Directive Discussion [facility] Start: 12-09-2023 Screening for osteoporosis Bone Density Screening [facility] Start: 2023 End: 2023 Patient encounter procedure 2023 11:00 AM EDT Office Visit Family Medicine [place] [address] [facility] [place] [address] Lauryn Baldwin APRN.SALVAGE REPAIRER [address] [facility] [place] [address] BP check [facility] [place] Comment on above: BP check Start: 11-11-2023 Medicare Annual Wellness Visit Medicare Annual Wellness Visit [facility] Start: 11-09-2023 End: 11-09-2023 Patient encounter procedure 11/09/2023 10:40 AM EDT Office Visit Family [facility] Rocha [address] [place] [address] Mac Olvera MD [address] [facility] [place] [address] 6 month follow up Family [facility] Rocha Comment on above: 6 month follow up Start: 11-01-2023 ANNUAL PCP TEAM CHRONIC DISEASE VISIT ANNUAL PCP TEAM CHRONIC DISEASE VISIT [facility] Start: 11-01-2023 COVID-19 VACCINE (#1) COVID-19 VACCINE (#1) [facility] Comment on above: Postponed from 06/10/1961 (Declined at t his time) Start: 11-01-2023 Hepatitis B screening URINE ALBUMIN:CREATININE RATIO [facility] Start: 11-01-2023 Hepatitis B surface antibody level LDL CHOLESTEROL [facility] Start: 11-01-2023 PNEUMOCOCCAL (2 - PCV) PNEUMOCOCCAL (2 - PCV) [facility] Comment on above: Postponed from 08/02/2015 (Declined at t his time) Start: 11-01-2023 Pneumococcal vaccination [facility] Comment on above: Postponed from 08/02/2015 (Declined at t his time) Start: 11-01-2023 SHINGRIX VACCINE (1 of 2) SHINGRIX VACCINE (1 of 2) [facility] Comment on above: Postponed from 2008 (Declined at t his time) Start: 09-16-2023 End: 12-16-2023 Bacteria identified in Urine by Culture [facility] Work Phone: Comment on above: Expected: 09/16/2023, Expires: Start: 09-16-2023 End: 12-16-2023 Urinalysis complete panel - Urine [facility] Work Phone: Comment on above: Expected: 09/16/2023, Expires: 4 Start: 08-27-2023 End: 08-27-2024 CARBOXYHEMOGLOBIN NABOR CARBOXYHEMOGLOBIN NABOR Lab Routine Elevated liver enzymes Polycythemia Expected: 08/27/2023, Expires: 08/27/2024 [facility] Work Phone: Comment on above: Expected: 08/27/2023, Expires: Start: 08-27-2023 End: 08-27-2024 CBC W Auto Differential panel - Blood CBC + DIFF Lab Routine Elevated liver enzymes Polycythemia Expected: 08/27/2023, Expires: 08/27/2024 [facility] Work Phone: Comment on above: Expected: 08/27/2023, Expires: 5 Start: 08-27-2023 End: 11-26-2023 Gamma glutamyl transferase [Enzymatic activity/volume] in Serum or Plasma GGT BLD Lab Routine Elevated liver enzymes Polycythemia Expected: 08/27/2023, Expires: 11/26/2023 [facility] Work Phone: Comment on above: Expected: 08/27/2023, Expires: 4 Start: 08-27-2023 End: 08-27-2024 HEP ACUTE PANEL/RNA HEP ACUTE PANEL/RNA Lab Routine Elevated liver enzymes Polycythemia Expected: 08/27/2023, Expires: 08/27/2024 [facility] Work Phone: Comment on above: Expected: 08/27/2023, Expires: 5 Start: 08-27-2023 End: 08-27-2024 Hepatic function 2000 panel - Serum or Plasma HEPATIC FUNCTION PNL Lab Routine Elevated liver enzymes Polycythemia Expected: 08/27/2023, Expires: 08/27/2024 [facility] Work Phone: Comment on above: Expected: 08/27/2023, Expires: 5 Start: 08-27-2023 End: 11-26-2023 JAK2 gene targeted mutation analysis in Blood or Tissue by Molecular genetics method [id number] MUTATION BLOOD Lab Routine Elevated liver enzymes Polycythemia Expected: 08/27/2023, Expires: 11/26/2023 [facility] Work Phone: Comment on above: Expected: 08/27/2023, Expires: 4 Start: 08-18-2023 End: 11-17-2023 CBC W Auto Differential panel - Blood CBC + DIFF Lab Routine Type 2 diabetes mellitus without complication, without long-term current use of insulin (HCC) Expected: 08/18/2023, Expires: 11/17/2023 [facility] Work Phone: Comment on above: Expected: 08/18/2023, Expires: 4 Start: 08-18-2023 End: 11-17-2023 Comprehensive metabolic 2000 panel - Serum or Plasma COMP METABOLIC PANEL Lab Routine Type 2 diabetes mellitus without complication, without long-term current use of insulin (HCC) Expected: 08/18/2023, Expires: 11/17/2023 [facility] Work Phone: Comment on above: Expected: 08/18/2023, Expires: Start: 08-18-2023 End: 11-17-2023 Hemoglobin A1c in Blood HGB A1C Lab Routine Type 2 diabetes mellitus without complication, without long-term current use of insulin (HCC) Expected: 08/18/2023, Expires: 11/17/2023 [facility] Work Phone: Comment on above: Expected: 08/18/2023, Expires: Start: 08-18-2023 End: 11-17-2023 Lipid 1996 panel - Serum or Plasma LIPID PANEL BASIC Lab Routine Type 2 diabetes mellitus without complication, without long-term current use of insulin ([facility]) Expected: 08/18/2023, Expires: 11/17/2023 [facility] Work Phone: Comment on above: Expected: 08/18/2023, Expires: Start: 07-13-2023 Behavioral Health Screening Behavioral Health Screening [facility] Start: 07-13-2023 Depression Assessment Depression Assessment [facility] Start: 05-07-2023 Patient discharge [facility] Start: 05-07-2023 Blood chemistry [facility] Start: 05-07-2023 NM Heart Views W stress and W radionuclide IV [facility] Start: 05-07-2023 Nuclear Stress Test - Chemical Nuclear Stress Test - Chemical [facility] Start: 05-07-2023 [facility] Start: 05-06-2023 Troponin I measurement [facility] Start: 05-06-2023 Following clinical pathway protocol [facility] Start: 05-06-2023 Ambulation without limitation [facility] Start: 05-06-2023 Assessment of risk of venous thromboembolism [facility] Start: 05-06-2023 Care regimes management [facility] Start: 05-06-2023 Catheterization of vein [facility] Start: 05-06-2023 Incentive spirometry [facility] Start: 05-06-2023 Inhalation therapy procedure [facility] Start: 05-06-2023 Insertion of catheter into peripheral vein [facility] Start: 05-06-2023 Measuring intake and output [facility] Start: 05-06-2023 Notification of physician [facility] Start: 05-06-2023 Oxygen therapy [facility] Start: 05-06-2023 Providing care according to standard [facility] Start: 05-06-2023 Referral to service [facility] Start: 05-06-2023 Tobacco use cessation education [facility] Start: 05-06-2023 End: 05-06-2023 [facility] Start: 05-06-2023 Verification routine [facility] Start: 05-06-2023 Admission procedure [facility] Start: 03-18-2023 Hepatitis B surface antibody level LDL CHOLESTEROL [facility] Start: 03-13-2023 Covid-19 Vaccine ( season) Covid-19 Vaccine () [facility] Start: 03-13-2023 Influenza vaccination [facility] Start: 02-05-2023 3 comp foot exam completed DIABETIC FOOT EXAM [facility] Start: 02-05-2023 ANNUAL PCP TEAM CHRONIC DISEASE VISIT ANNUAL PCP TEAM CHRONIC DISEASE VISIT [facility] Start: 02-05-2023 Diabetic foot examination Diabetic Foot Exam [facility] Start: 01-30-2023 Hemoglobin A1c measurement HbA1C [facility] Start: 01-30-2023 Hemoglobin A1c/Hemoglobin.total in Blood HBA1C [facility] Start: 01-27-2023 Hepatitis C antibody, confirmatory test DILATED RETINAL EXAM [facility] Start: 12-23-2022 Hemoglobin A1c/Hemoglobin.total in Blood HBA1C [facility] Start: 12-10-2022 Colonoscopy COLONOSCOPY [facility] Start: 12-10-2022 COLORECTAL CANCER SCREENING COLORECTAL CANCER SCREENING [facility] Start: 10-31-2022 End: 12-31-2022 ALBUMIN/CREAT RATIO RND UR [facility] Work Phone: Comment on above: Expected: 10/31/2022, Expires: 3 Start: 10-31-2022 End: 12-31-2022 Bacteria identified in Urine by Culture [facility] Work Phone: Comment on above: Expected: 10/31/2022, Expires: 3 Start: 10-31-2022 End: 12-31-2022 CBC W Auto Differential panel - Blood [facility] Work Phone: Comment on above: Expected: 10/31/2022, Expires: 3 Start: 10-31-2022 End: 12-31-2022 Comprehensive metabolic 2000 panel - Serum or Plasma [facility] Work Phone: Comment on above: Expected: 10/31/2022, Expires: 3 Start: 10-31-2022 End: 12-31-2022 Hemoglobin A1c in Blood [facility] Work Phone: Comment on above: Expected: 10/31/2022, Expires: 3 Start: 10-31-2022 End: 12-31-2022 HIV 1+2 Ab [Presence] in Serum or Plasma by Immunoassay [facility] Work Phone: Comment on above: Expected: 10/31/2022, Expires: 3 Start: 10-31-2022 End: 12-31-2022 Lipid 1996 panel - Serum or Plasma [facility] Work Phone: Comment on above: Expected: 10/31/2022, Expires: 3 Start: 10-31-2022 End: 12-31-2022 Urinalysis complete panel - Urine [facility] Work Phone: Comment on above: Expected: 10/31/2022, Expires: 3 Start: 09-15-2022 Hemoglobin A1c/Hemoglobin.total in Blood HBA1C [facility] Start: 09-09-2022 ANNUAL PCP TEAM CHRONIC DISEASE VISIT ANNUAL PCP TEAM CHRONIC DISEASE VISIT [facility] Start: 09-05-2022 Hepatitis B screening URINE ALBUMIN:CREATININE RATIO [facility] Start: 08-08-2022 End: 10-08-2022 Hemoglobin A1c in Blood HGB A1C Lab Routine Type 2 diabetes mellitus without complication, without long-term current use of insulin (HCC) Expected: 08/08/2022, Expires: 10/08/2022 [facility] Work Phone: Comment on above: Expected: 08/08/2022, Expires: 3 Start: 07-13-2022 DEPRESSION ASSESSMENT DEPRESSION ASSESSMENT [facility] Start: 03-13-2022 Influenza vaccination [facility] Start: 02-05-2022 End: 04-07-2022 CBC W Auto Differential panel - Blood CBC + DIFF Lab Routine Type 2 diabetes mellitus without complication, without long-term current use of insulin (HCC) Expected: 02/05/2022, Expires: 04/07/2022 [facility] Work Phone: Comment on above: Expected: 02/05/2022, Expires: 2 Start: 02-05-2022 End: 04-07-2022 Comprehensive metabolic 2000 panel - Serum or Plasma COMP METABOLIC PANEL Lab Routine Type 2 diabetes mellitus without complication, without long-term current use of insulin (HCC) Expected: 02/05/2022, Expires: 04/07/2022 [facility] Work Phone: Comment on above: Expected: 02/05/2022, Expires: 2 Start: 02-05-2022 End: 04-07-2022 Lipid 1996 panel - Serum or Plasma LIPID PANEL BASIC Lab Routine Type 2 diabetes mellitus without complication, without long-term current use of insulin (HCC) Expected: 02/05/2022, Expires: 04/07/2022 [facility] Work Phone: Comment on above: Expected: 02/05/2022, Expires: 2 Start: 01-22-2022 Influenza vaccination LUNG CANCER SCREENING [facility] Start: 01-22-2022 Screening for malignant neoplasm of lung Lung Cancer Screening [facility] Start: 12-17-2021 Hepatitis B surface antibody level LDL CHOLESTEROL [facility] Start: 12-03-2021 Hemoglobin A1c/Hemoglobin.total in Blood HBA1C [facility] Start: 08-21-2021 Mammography [facility] Start: 08-21-2021 Screening for malignant neoplasm of breast Mammogram Screening [facility] Start: 08-01-2021 Hepatitis C antibody, confirmatory test DILATED RETINAL EXAM [facility] Start: 07-13-2021 DEPRESSION ASSESSMENT DEPRESSION ASSESSMENT [facility] Start: 12-13-2019 HPV TESTING HPV TESTING [facility] Start: 12-13-2019 PAP TESTING PAP TESTING [facility] Start: 12-13-2019 Screening for malignant neoplasm of cervix [facility] Start: 10-26-2019 3 comp foot exam completed DIABETIC FOOT EXAM [facility] Start: 2018 Hepatitis B Vaccine (1 of 3 - Risk 3-dose series) Hepatitis B Vaccine (1 of 3 - Risk 3-dose series) [facility] Start: 2018 RSV Vaccine (1 - 1-dose 60+ series) RSV Vaccine (1 - 1-dose 60+ series) [facility] Start: 2018 RSV Vaccine (1 - Risk 60-74 years 1-dose series) RSV Vaccine (1 - Risk 60-74 years 1-dose series) [facility] Start: 12-05-2016 Adult depression screening assessment DEPRESSION SCREENING [facility] Start: 08-02-2015 PNEUMOCOCCAL (2 - PCV) PNEUMOCOCCAL (2 - PCV) [facility] Start: 08-02-2015 Pneumococcal vaccination Pneumococcal Vaccine (2 of 2 - PCV) [facility] Start: 08-02-2015 Pneumococcal Vaccine: 65+ (2 of 2 - PCV) Pneumococcal Vaccine: 65+ (2 of 2 - PCV) [facility] Start: 2008 SHINGRIX VACCINE (1 of 2) SHINGRIX VACCINE (1 of 2) [facility] Start: 12-09-2003 COLOGUARD (FIT-DNA) COLOGUARD (FIT-DNA) [facility] Start: 12-09-[address] COLONOGRAPHY [facility] Start: 12-09-2003 FECAL OCCULT BLOOD FECAL OCCULT BLOOD [facility] Start: 12-09-2003 Screening for malignant neoplasm of colon [facility] Start: 12-09-2003 SIGMOIDOSCOPY SIGMOIDOSCOPY [facility] Start: 1976 BP CONTROLLED (<130/80) BP CONTROLLED (<130/80) [facility] Start: 1976 HIV SCREENING HIV SCREENING [facility] Start: 12-09-1963 COVID-19 VACCINE (#1) COVID-19 VACCINE (#1) [facility] Start: [birth year]-10-1959 COVID-19 VACCINE (#1) COVID-19 VACCINE (#1) [facility] Anion gap measurement [facility] Bacteria identified in Urine by Culture URINE CULTURE Microbiology Routine Dysuria Ordered: 08/18/2023 [facility] Work Phone: Comment on above: Ordered: 08/18/2023 End: 05-21-2025 BD DXA TRABECULAR BONE SCORE (TBS) BD DXA TRABECULAR BONE SCORE (TBS) Radiology Routine Screening for osteoporosis Asymptomatic menopause 1 Occurrences starting 04/21/2024 until 05/21/2025 [facility] Comment on above: 1 Occurrences starting 04/21/2024 until 05/21/2025 BUN/Creatinine ratio [facility] Calcium [Mass/volume ] in Serum or Plasma [facility] Carbon dioxide, tota l [Moles/volume] in Serum or Plasma [facility] Chloride [Moles/volu me] in Serum or Plasma [facility] Cholesterol [Mass/vo lume] in Serum or Plasma [facility] Cholesterol in HDL [Mass/volume] in Serum or Plasma [facility] Cholesterol in LDL [Mass/volume] in Serum or Plasma [facility] Creatinine [Moles/vo lume] in Serum or Plasma [facility] End: 10-13-2024 CT Chest for screening WO contrast CT LUNG SCREEN WO IVCON Radiology Routine Tobacco use current 1 Occurrences starting 09/14/2023 until 10/13/2024 [facility] Work Phone: Comment on above: 1 Occurrences starting 09/14/2023 until 10/13/2024 End: 05-18-2025 CT Chest for screening WO contrast CT LUNG SCREEN WO IVCON Radiology Routine Tobacco use current Encounter for screening for lung cancer 1 Occurrences starting 04/18/2024 until 05/18/2025 [facility] Work Phone: Comment on above: 1 Occurrences starting 04/18/2024 until 05/18/2025 End: 11-10-2025 DBT Breast - bilateral screening MOISES SCREENING W ANNE Radiology Routine Encounter for screening mammogram for breast cancer 1 Occurrences starting 10/11/2024 until 11/10/2025 [facility] Work Phone: Comment on above: 1 Occurrences starting 10/11/2024 until 11/10/2025 End: 05-21-2025 DXA Skeletal system.axial Views for bone density DXA-AXIAL SKELETON Radiology Routine Screening for osteoporosis Asymptomatic menopause 1 Occurrences starting 04/21/2024 until 05/21/2025 [facility] Work Phone: Comment on above: 1 Occurrences starting 04/21/2024 until 05/21/2025 End: 06-24-2023 ECG COMPLETE ECG COMPLETE ECG Routine Palpitations 1 Occurrences starting 06/24/2022 until 06/24/2023 [facility] Work Phone: Comment on above: 1 Occurrences starting 06/24/2022 until 06/24/2023 ECG COMPLETE [facility] Work Phone: Comment on above: Ordered: 08/18/2023 Glucose [Mass/volume ] in Serum or Plasma [facility] Hematocrit [Volume Fraction] of Blood [facility] Hemoglobin [Mass/vol ume] in Blood [facility] End: 08-17-2024 HOME SLEEP APNEA TEST (HSAT) HOME SLEEP APNEA TEST (HSAT) Procedures Routine PASCUAL (obstructive sleep apnea) 1 Occurrences starting 08/18/2023 until 08/17/2024 [facility] Work Phone: Comment on above: 1 Occurrences starting 08/18/2023 until 08/17/2024 Leukocytes [#/volume ] in Blood [facility] Magnesium [Mass/volu me] in Serum or Plasma [facility] End: 02-13-2024 MOISES SCREENING MOISES SCREENING Radiology Routine Encounter for screening mammogram for breast cancer 1 Occurrences starting 01/14/2023 until 02/13/2024 [facility] [facility] Work Phone: Comment on above: 1 Occurrences starting 01/14/2023 until 02/13/2024 Mean corpuscular hemoglobin concentration determination [facility] Mean corpuscular hemoglobin determination [facility] Measurement of renal function [facility] End: 2024 MG Breast Screening MOISES SCREENING Radiology Routine Screening breast examination 1 Occurrences starting 11/09/2023 until 2024 [facility] Work Phone: Comment on above: 1 Occurrences starting 11/09/2023 until 2024 Neutrophil count [facility] Neutrophil percent differential count [facility] Patient Education [facility] Work Phone: Patient referral [facility] Work Phone: Platelets [#/volume] in Blood [facility] Potassium [Moles/vol ume] in Serum or Plasma [facility] Red blood cell count [facility] Red cell distributio n width determination [facility] End: 03-07-2023 Screening mammography bi 2-view breast inc cad MOISES SCREENING Radiology Routine Screening breast examination 1 Occurrences starting 02/05/2022 until 03/07/2023 [facility] Work Phone: Comment on above: 1 Occurrences starting 02/05/2022 until 03/07/2023 Sodium [Moles/volume ] in Serum or Plasma [facility] Tissue Pathology bio psy report SURGICAL PATHOLOGY Lab Routine Sebaceous cyst 11/10/2024 4:09 PM EDT [facility] Work Phone: Triglycerides measurement [facility] Urea nitrogen [Mass/volume] in Serum or Plasma [facility] Urine culture [facility] Urine culture [facility] End: 09-25-2024 US Abdomen RUQ US ABD RIGHT UPPER QUADRANT Radiology Routine Elevated liver enzymes Polycythemia 1 Occurrences starting 08/27/2023 until 09/25/2024 [facility] Work Phone: Comment on above: 1 Occurrences starting 08/27/2023 until 09/25/2024 End: 10-17-2025 US Carotid arteries - bilateral US CAROTID ARTERIES [facility] Vascular Lab Routine Carotid artery stenosis, asymptomatic, bilateral 1 Occurrences starting 10/17/2024 until 10/17/2025 [facility] Work Phone: Comment on above: 1 Occurrences starting 10/17/2024 until 10/17/2025 End: 12-02-2022 US CAROTID ARTERIES [facility] US CAROTID ARTERIES [facility] Vascular Lab Routine Carotid artery stenosis, asymptomatic, bilateral 1 Occurrences starting 12/02/2021 until 12/02/2022 [facility] Work Phone: Comment on above: 1 Occurrences starting 12/02/2021 until 12/02/2022 End: 03-07-2023 Us soft tissue head & neck real time imge docm US HEAD/NECK SOFT TISSUE OTHER Radiology Routine Supraclavicular fossa fullness 1 Occurrences starting 02/05/2022 until 03/07/2023 [facility] Work Phone: Comment on above: 1 Occurrences starting 02/05/2022 until 03/07/2023 VLDL cholesterol measurement [facility] End: 11-30-2023 XR KNEE GENERAL 4V AP BOTH/PA BOTH/LAT/MERC LEFT XR KNEE GENERAL 4V AP BOTH/PA BOTH/LAT/MERC LEFT Radiology Routine Chronic pain of left knee 1 Occurrences starting 10/31/2022 until 11/30/2023 [facility] Work Phone: Comment on above: 1 Occurrences starting 10/31/2022 until 11/30/2023 XR KNEE GENERAL 4V A P BOTH/PA BOTH/LAT/MERC LEFT XR KNEE GENERAL 4V AP BOTH/PA BOTH/LAT/MERC LEFT Radiology Routine Chronic pain of left knee 10/31/2022 12:17 PM EDT [facility] Work Phone: End: 2024 XR Lumbar spine 3 Views XR LUMBAR GENERAL 3V AP/LAT/L5-S1 Radiology Routine DDD (degenerative disc disease), lumbar 1 Occurrences starting 11/09/2023 until 2024 [facility] Comment on above: 1 Occurrences starting 11/09/2023 until 2024 XR Lumbar spine 3 Views XR LUMBA R GENERAL 3V AP/LAT/L5-S1 Radiology Routine DDD (degenerative disc disease), lumbar 01/25/2024 12:01 PM EDT [facility] Work Phone: [facility] Immunizations Immunization Date Immunization Notes Care Provider Kathleen Zepeda-10-2024 influenza, high dose seasonal, preservative-free Lauryn Suppan [employer] Work Phone: [facility] 04-21-2024 pneumococcal conjuga te (PCV20) vaccine, 20 valent (PREVNAR 20) Lauryn Suppan [employer] Work Phone: [facility] 04-21-2024 pneumococcal Conjuga te, unspecified formulation Lauryn Suppan [employer] Work Phone: [facility] 05-07-2023 influenza, injectabl e, quadrivalent, preservative free Dr. Mac Olvera Work Phone: [facility] 05-07-2023 influenza virus vacc ine, unspecified formulation Rc Delacruz MD Work Phone: [facility] 02-05-2018 tetanus toxoid, redu mando diphtheria toxoid, and acellular pertussis vaccine, adsorbed Rc Delacruz MD Work Phone: [facility] 06-18-2017 influenza, injectabl e, quadrivalent, preservative free [facility] 06-18-2017 influenza, seasonal, injectable, preservative free Mac Olvera MD Work Phone: [facility] 06-18-2017 influenza virus vacc ine, unspecified formulation Mac Olvera MD Work Phone: [facility] 06-11-2016 influenza, injectabl e, quadrivalent, preservative free [facility] 06-11-2016 influenza, seasonal, injectable, preservative free Mac Olvera MD Work Phone: [facility] 05-31-2015 influenza, injectabl e, quadrivalent, contains preservative Rc Delacruz MD Work Phone: [facility] 05-31-2015 influenza, seasonal, injectable Mac Olvera MD Work Phone: [facility] 08-02-2014 pneumococcal polysaccharide vaccine, 23 valent Rc Delacruz MD Work Phone: [facility] 08-01-2014 influenza, injectabl e, quadrivalent, preservative free Rc Delacruz MD Work Phone: [facility] Payers Date Payer Category Payer Self-pay [id number] 2024 Private Health Insurance HUMANA HU[employer]NA MEDICAID [facility] [id number] 2024-Present [address] [address] [place] [address] Medicaid [id number] 2023 Medicare MEDICARE [id number] 2023 Medicare [id number] 2017 Medicaid [employer]ICA[employer] [id number] 2017-Present [phone] [address] [place] [address] Medicaid [id number] 2017 Medicaid [id number] 2014 Unknown [id number] Medicaid [id number] Unknown [id number] Social History Date Type Detail Facility Start: 04-27-1972 End: 04-18-2024 Tobacco smoking status NHIS Smokes tobacco daily [facility] Start: 04-27-1972 History of tobacco use Cigarette Smo ker [facility] Start: 01-28-2018 End: 05-06-2023 Cigarettes smoked current (pack per day) - Reported 2 [facility] Work Phone: Start: 01-28-2018 End: 04-18-2024 Tobacco use and exposure Former smokeless tobacco user [facility] Start: 12-02-2021 End: 01-03-2025 Alcohol intake Current drinker of alcohol (finding) [facility] Start: 08-01-2014 History SDOH Alcohol Comment 2-3 x per week [facility] Start: 12-12-2014 Tobacco Comment started smokin g at age 11 [facility] Start: 1960 Sex Assigned At Not on file C [facility] Start: 11-22-2021 End: 02-05-2022 Exposure to SARS-CoV-2 (event) Not sure [facility] Start: 06-30-2022 Tobacco Comment started smokin g at age 11;cigarette; Amount: 20-39 cigs/day; 1 1/2 - 2 ppd x 43 years; [facility] Start: 11-28-2022 End: 05-06-2023 Tobacco use panel [facility] Work Phone: Adult Depression Screening Assessment 0 [facility] Work Phone: Start: 05-06-2023 End: 05-07-2023 Tobacco smoking status NHIS Unknown if ever smoked [facility] Start: 10-03-2019 Occasional [facility] Start: 10-03-2019 None [facility] Start: 10-03-2019 Spouse/ Signif icant Other [facility] Start: 10-04-2019 Cigarettes [facility] Start: 1960 Sex Assigned At Female [facility] History of tobacco use Snuff User [facility] Medical Equipment Procedure Code Equipment Code Equipment Origin al Text Equipment Identifier Dates Test blood sugar (s) 1 times daily. Dx: Type 2 DM - Uncontrolled E11.65 Insulin: No [id number], [id number] Start: 09-09-2021 Comment on above: Test blood sugar(s) 1 times daily. Dx: Type 2 DM - Uncontrolled E11.65 Insulin: No Goals Date Patient Goal Desired Activity /State Functional Status Date Assessment Result Facility 05-07-2023 Functional status Ambulates;Bath room Privilege [facility] Work Phone: 02-06-2015 Are you deaf, or do you have serious difficulty hearing No 02/06/2015 1:55 PM Lora Mo RN No [facility] 02-06-2015 Are you blind, or do you have serious difficulty seeing, even when wearing glasses No 02/06/2015 1:55 PM Lora Mo RN No [facility] 02-06-2015 Do you have serious difficulty walking or climbing stairs No 02/06/2015 1:55 PM Lora Mo RN No [facility] 02-06-2015 Do you have difficul ty dressing or bathing No 02/06/2015 1:55 PM Lora Mo RN No [facility] 02-06-2015 Because of a physica l, mental, or emotional condition, do you have difficulty doing errands alone such as visiting a physician's office or shopping No 02/06/2015 1:55 PM Lora Mo RN No [facility] Mental Status Date Assessment Result Facility 01-03-2025 Cognitive function Level Of Cons ciousness Awake;Alert;Appropriate;Fol lows Commands [facility] Work Phone: 12-21-2024 Cognitive function Level Of Cons ciousness Awake;Alert;Appropriate;Fol lows Commands [facility] Work Phone: 05-07-2023 Cognitive function Voice/Name [facility] Work Phone: 05-06-2023 Cognitive function Voice/Name [facility] Work Phone: 02-06-2015 Because of a physica l, mental, or emotional condition, do you have serious difficulty concentrating, remembering, or making decisions No 02/06/2015 1:55 PM Lora Mo RN No [facility] Clinical Notes 10-17-2015 to 01-03-2025 Note Date & Type Note Facility 01-03-2025 History and physi pro note [facility] 01-03-2025 Discharge summary Note Date/Time January 03, 2025 5:29pm [facility] Medical Records Department [address] [place] [address] Emergency Department Summary 01/03/25 MR#: [id number] Acct: [id number] Name: CAROL NOLAN Rep #:[id number] : 1960 64 From: Clem Madden DO PCP: Dr. Mac Olvera MD Status:REG E R Location: ED HPI History of Present Illness Chief Complaint: Weakness Narrative Narrative: Patient is a 64-year-old female with past medical history of type 2 diabetes, hypertension, hyperlipidemia, CABG x 2 who presented to the emergency departmentwith a chief complaint of generalized weakness, not feeling well overall. According to the patient she was seeing her primary care doctor for a follow-up appointment after being discharged from the emergency department and noted that she was very weak and had a low blood pressure therefore they sent her here for further evaluation management. She states that she was placed on an antibiotic for her urinary tract infection and then was called back was given a second antibiotic as well. She pulled these out of her purse and they appear to be Bactrim and Levaquin. 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 Hyperlipidemia Hypertension Chest pain Home Medications ?Medication ?Instructions ?Recorded ?Last Taken ?Type nitroglycerin 0.4 mg sublingual 0.4 mg sublingual Q5M PRN CHEST 05/15/15 06/16/17 06:00 History tablet PAIN gabapentin 300 mg capsule 300 mg PO QHS NEUROPATHY 01/2505/05/23 History albuterol sulfate 90 mcg/actuation 2 puff inhalation Q 4H PRN 06/17/17 Unknown History aerosol inhaler SHORTNESS OF BREATH/WHEEZING ipratropium 0.5 mg-albuterol 3 mg 3 ml inhalation 4X/D AY PRN 02/28/19 Unknown History (2.5 mg base)/3 mL nebulization SHORTNESS OF BREATH/WH EEZING soln metoprolol succinate 50 mg 50 mg PO DAILY BLOOD PRESSU RE 02/28/19 05/05/23 History tablet,extended release 24 hr aspirin 81 mg tablet,delayed 162 mg PO DAILY HEART HEA LTH 03/01/19 05/05/23 History release clopidogrel 75 mg tablet 75 mg PO DAILY BLOOD THINNER #90 05/19/19 05/05/23 Rx tabs lisinopril 20 mg tablet 20 mg PO DAILY BLOOD PRESSUR E 10/03/19 05/05/23 History metformin 500 mg tablet,extended 1,500 mg PO DAILY EUGENIA BETES 10/03/19 05/05/23 History release 24 hr hydralazine 10 mg tablet 10 mg PO BID BLOOD PRESSURE 05/06/23 05/05/23 History rosuvastatin 20 mg tablet 20 mg PO DAILY CHOLESTEROL 1 05/05/23 History pantoprazole 40 mg tablet,delayed 40 mg PO DAILY 30 da ys #30 tabs 05/07/23 Unknown Rx release hydrocodone-acetaminophen 5-325mg 1 tab PO Q6H PRN PRN Pain 3 days 12/22/24 Unknown Rx 5mg-325mg #10 TABLETS levofloxacin 750 mg tablet 750 mg PO DAILY #5 tabs 07/06 Unknown Rx ondansetron 4 mg disintegrating 4 mg PO Q8H PRN PRN Na usea #10 tabs 12/22/24 Unknown Rx tablet Allergy/AdvReac Type Severity Reaction Status Date / Time nickel Allergy Rash Verified 01/03/25 11:57 Penicillins (PCN) Allergy Hives Verified 01/03/25 11:57 nicotine (From Nicoderm CQ) AdvReac Severe TERRIBLE Verified 01/03/25 11:57 NIGHTMARES Family History Mother Kidney disease Congestive heart failure Renal failure Father CAD (coronary artery disease) Daughter Hypertension Surgical History History of left heart catheterization (10/05/19) Stented coronary artery (03/03/19) History of tubal ligation History of total right knee replacement History of History of tonsillectomy and adenoidectomy History of rotator cuff surgery History of selective injection of anesthetic agent around lumbar nerve root History of arthroscopic knee surgery History of esophagogastroduodenoscopy (EGD) History of colonoscopy History of cholecystectomy S/P CABG x 2 (10/17/15) Social History Smoking Status: Current every day smoker tobacco type: cigarettes alcohol intake: never substance use type: does not use ROS ROS ED ROS Narrative Constitutional: Denies fevers, chills, headaches Cardiovascular: Denies chest pain Respiratory: Denies shortness of breath Abdomen: Denies abdominal pain nausea vomit diarrhea : Complains of the painful urination Neurological: Denies numbness, weakness, tingling Musculoskeletal: Denies back pain Skin: Denies rashes or lesions EXAM Physical Exam Narrative Exam Narrative: General: Patient was lying in bed rest comfortably did not appear to be in acutedistress Head: Atraumatic, normocephalic Eyes: PERRL bilaterally, EOMI bilateral, no conjunctival injection noted Neck: Soft, supple, trachea midline Cardiovascular: Regular rate and rhythm Respiratory: Clear to auscultation bilaterally Abdomen: Soft, tenderness to palpation epigastric and right upper quadrants no rebound or guarding on exam Extremities: +5/5 strength noted in the bilateral upper and lower extremities, you pulses +2/4 in the bilateral extremities, no pedal edema on exam Neurological: Patient follow commands knew that she was at [facility] 2024 Skin: Warm, dry, intact no rashes or lesions noted Const Vital Signs: 01/03/25 11:53 01/03/25 13:04 01/03/25 13:57 Temperature 97.6 F L 97.6 F L Temperature Source Oral Oral Pulse Rate 78 73 Pulse Rate [Lying] Pulse Rate [Sitting (for 1 minute prior to obtaining)] Pulse Rate [Standing (for 1 minute prior to obtaining)] Respiratory Rate 20 H 15 Blood Pressure 125/72 H 99/57 L Blood Pressure [Lying] Blood Pressure [Sitting (for 1 minute prior to obtaining)] Blood Pressure [Standing (for 1 minute prior to obtaining)] Blood Pressure Mean 89 71 Blood Pressure Mean [Lying] Blood Pressure Mean [Sitting (for 1 minute prior to obtaining)] Blood Pressure Mean [Standing (for 1 minute prior to obtaining)] Pulse Ox 96 96 Oxygen Delivery Method Room Air Room Air Room Air 01/03/25 14:00 01/03/25 15:00 01/03/25 16:58 Temperature 98.2 F 97.8 F Temperature Source Oral Temporal Pulse Rate 70 65 Pulse Rate [Lying] 65 Pulse Rate [Sitting (for 1 minute prior to obtaining)] 66 Pulse Rate [Standing (for 1 minute prior to obtaining)] 73 Respiratory Rate 15 17 Blood Pressure 116/67 127/71 H Blood Pressure [Lying] 119/56 L Blood Pressure [Sitting (for 1 minute prior to obtaining)] 125/68 H Blood Pressure [Standing (for 1 minute prior to obtaining)] 122/68 H Blood Pressure Mean 83 89 Blood Pressure Mean [Lying] 77 Blood Pressure Mean [Sitting (for 1 minute prior to obtaining)] 87 Blood Pressure Mean [Standing (for 1 minute prior to obtaining)] 86 Pulse Ox 95 97 Oxygen Delivery Method Room Air Room Air 01/03/25 17:12 Temperature Temperature Source Pulse Rate 74 Pulse Rate [Lying] Pulse Rate [Sitting (for 1 minute prior to obtaining)] Pulse Rate [Standing (for 1 minute prior to obtaining)] Respiratory Rate 12 Blood Pressure 122/68 H Blood Pressure [Lying] Blood Pressure [Sitting (for 1 minute prior to obtaining)] Blood Pressure [Standing (for 1 minute prior to obtaining)] Blood Pressure Mean 86 Blood Pressure Mean [Lying] Blood Pressure Mean [Sitting (for 1 minute prior to obtaining)] Blood Pressure Mean [Standing (for 1 minute prior to obtaining)] Pulse Ox 97 Oxygen Delivery Method MDM MDM MDM Narrative Medical decision making narrative: Patient is a 64-year-old female who presented to the emergency department the chief complaint of generalized fatigue, weakness not feeling well. On the differential diagnose includes but not limited to UTI, pyelonephritis, choledocholithiasis, pancreatitis. Once workup is obtained reviewed she will bereevaluated. Patient's PCP called in and I discussed with them she states that she was recently discharged after being diagnosed with pyelonephritis and was placed on Bactrim and Levaquin she states that in the office today she was extremely weak is having poor oral intake and her blood pressure was noted to be 90/70 and after she tried to stand up it went to 70/40 therefore they had her brought hereto be further evaluated. Patient CBC reviewed showed a white blood count 11,000, hemoglobin 15.6, platelet count of 459. Patient's INR normal at 1.1, PT of 14.6. Patient sodiumis 135, potassium normal at 4.9, creatinine elevated 1.39 which is slightly elevated from a previous blood draw on 12/21/2024. Patient lactic acid normal at1.7, AST and ALT were 43 and 29 respectively. Patient's urinalysis reviewed andshowed 25 leukocyte esterase negative nitrates 10-25 white cells with no bacteria noted which is improved from the urinalysis on 12/21/2024. Patient CT abdomen pelvis with IV contrast reviewed today which showed fatty infiltration the liver status post cholecystectomy. Stable left renal cyst small umbilical hernia containing fat. Sigmoid diverticulosis Patient ambulated here in the emergency department she states that she felt verylightheaded and weak overall and she states that she is still having severe painin her abdomen. Patient is requesting where her pain medications. At this point time will discuss case with hospitalist for admission for her intractable abdominal pain nausea and lightheadedness with ambulation orthostatic vital signs will be obtained. Patient got up and ambulated to the bathroom again and felt very lightheaded andweak with her intractable abdominal pain nausea. Orthostatic vital signs negative I discussed case with hospitalist . She will accept patient for admission. Patient is agreeable this plan all course concerns answered. Lab Data Labs: Laboratory Results - last 24 hr 01/03/25 01/03/25 01/03/25 13:04 13:13 13:38 WBC 11.4 H RBC 5.09 Hgb 15.6 H Hct 47.1 H MCV 92.5 MCH 30.6 MCHC 33.1 RDW Std Deviation 45.5 H RDW Coeff of Aubrey 13.3 Plt Count 459 H MPV 9.3 Immature Gran % (Auto) 0.400 Neut % (Auto) 53.8 Lymph % (Auto) 35.6 Barton % (Auto) 7.7 Eos % (Auto) 1.3 Baso % (Auto) 1.2 H Absolute Neuts (auto) 6.1 Absolute Lymphs (auto) 4.07 Nucleated RBC % 0 PT 14.6 INR 1.1 APTT 26.3 Sodium 135 Potassium 4.9 Chloride 100 Carbon Dioxide 21.6 Anion Gap 13 BUN 20 H Creatinine 1.39 H Estim Creat Clear Calc 54.91 Est GFR (MDRD) Non-Af 42 L BUN/Creatinine Ratio 14.5 Glucose 133 H Lactic Acid 1.7 Calcium 9.9 Total Bilirubin 0.50 AST 43 H ALT 29 Alkaline Phosphatase 57 Total Protein 7.6 Albumin 3.7 Globulin 3.8 Albumin/Globulin Ratio 1.0 Urine Color Yellow Urine Clarity Sl. Cloudy Urine pH 6.0 Ur Specific [place] 1.020 Urine Protein 30 H Urine Glucose (UA) Normal Urine Ketones Negative Urine Occult Blood 25 H Urine Nitrite Negative Urine Bilirubin 1 H Urine Urobilinogen 1 H Ur Leukocyte Esterase 25 H Urine RBC 0-5 SEEN Urine WBC 10-25 SEEN Ur Squamous Epith Cells 5-10 SEEN Urine Bacteria 0 SEEN Urine Mucus 0 SEEN Radiography Diagnostic Testing: Clinical Impression(s) from Imaging Studies Abdomen/Pelvis CT 01/03/25 13:55 IMPRESSION: Fatty infiltration of the liver. Status post cholecystectomy. Stable left renal cyst. Small umbilical hernia containing fat. Sigmoid diverticulosis. Reading Location: [facility] Discharge Plan Triage Chief Complaint: Weakness ED Provider: Clem Madden Dx/Rx/DC Orders Clinical Impression: Generalized weakness, Intractable nausea, Intractable abdominal pain Prescriptions: No Action metoprolol succinate 50 mg tablet extended release 24 hr 50 mg PO DAILY ipratropium-albuterol 0.5 mg-3 mg(2.5 mg base)/3 mL solution for nebulization 3 ml INHALATION 4X/DAY PRN (Reason: SHORTNESS OF BREATH/WHEEZING ) Patient Comments: NOT TAKING OFTEN BECAUSE ITS HARD TO CLEAN aspirin 81 mg tablet,delayed release (DR/EC) 162 mg PO DAILY nitroglycerin 0.4 MG tablet 0.4 mg sublingual Q5M PRN (Reason: CHEST PAIN ) gabapentin 300 MG capsule 300 mg PO QHS albuterol sulfate 1 INHALER inhaler 2 puff inhalation Q4H PRN (Reason: SHORTNESS OF BREATH/WHEEZING) Patient Comments: NOT TAKING OFTEN THEY SHOULD lisinopril 20 MG tablet 20 mg PO DAILY metformin 500 MG tablet extended release 24 hr 1,500 mg PO DAILY hydralazine 10 MG tablet 10 mg PO BID rosuvastatin 20 mg tablet 20 mg PO DAILY pantoprazole 40 mg Tablet,Delayed Release (Dr/Ec) 40 mg PO DAILY 30 Days Qty: 30 0RF hydrocodone-acetaminophen 5-325 mg tablet 1 tab PO Q6H PRN PRN (Reason: Pain) 3 Days Qty: 10 0RF ondansetron 4 mg tablet,disintegrating 4 mg PO Q8H PRN PRN (Reason: Nausea) Qty: 10 0RF levofloxacin 750 mg tablet 750 mg PO DAILY Qty: 5 0RF clopidogrel 75 mg tablet 75 mg PO DAILY Qty: 90 3RF Primary Care Provider: Mac Olvera Referrals: Mac Olvera MD [Primary Care Provider] - Print Language: Lao Disposition Disposition: Acute Care Hospital [facility] What to do if you have Problems For any increased pain, shortness of breath, bleeding, nausea or vomiting, chestpain, or any unexpected problems, contact your Primary Care Provider. Call [facility] ([phone]) or report to the closest Emergency Room. Call 911 if necessary. 01/03/25 1729 <Electronically signed by Clem Madedn DO> Cosigner Signature (if applicable): CC: Dr. Mac Olvera MD ~ Signed [facility] Work Phone: [phone] 527-991406-24-2025 Discharge summary [facility] Medical Records Department [address] [place] [address] Emergency Department Summary 01/03/25 MR#: [id number] Acct: [id number] Name: CAROL NOLAN Rep #:[id number] : 1960 64 From: Clem Madden DO PCP: Dr. Mac Olvera MD Status:REG E R Location: ED HPI History of Present Illness Chief Complaint: Weakness Narrative Narrative: Patient is a 64-year-old female with past medical history of type 2 diabetes, hypertension, hyperlipidemia, CABG x 2 who presented to the emergency departmentwith a chief complaint of generalized weakness, not feeling well overall. According to the patient she was seeing her primary care doctor fora follow-up appointment after being discharged from the emergency department and noted that she wasvery weak and had a low blood pressure therefore they sent her here for further evaluation management. She states that she was placed on an antibiotic for her urinary tract infection and then was called back was given a second antibiotic as well. She pulled these out of her purse and they appear to be Bactrim and Levaquin. 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 Hyperlipidemia Hypertension Chest pain Home Medications ?Medication ?Instructions ?Recorded ?Last Taken ?Type nitroglycerin 0.4 mg sublingual 0.4 mg sublingual Q5M PRN CHEST 05/15/15 06/16/17 06:00 History tablet PAIN gabapentin 300 mg capsule 300 mg PO QHS NEUROPATHY 01/2505/05/23 History albuterol sulfate 90 mcg/actuation 2 puff inhalation Q 4H PRN 06/17/17 Unknown History aerosol inhaler SHORTNESS OF BREATH/WHEEZING ipratropium 0.5 mg-albuterol 3 mg 3 ml inhalation 4X/D AY PRN 02/28/19 Unknown History (2.5 mg base)/3 mL nebulization SHORTNESS OF BREATH/WH EEZING soln metoprolol succinate 50 mg 50 mg PO DAILY BLOOD PRESSU RE 02/28/19 05/05/23 History tablet,extended release 24 hr aspirin 81 mg tablet,delayed 162 mg PO DAILY HEART HEA LTH 03/01/19 05/05/23 History release clopidogrel 75 mg tablet 75 mg PO DAILY BLOOD THINNER #90 05/19/19 05/05/23 Rx tabs lisinopril 20 mg tablet 20 mg PO DAILY BLOOD PRESSUR E 10/03/19 05/05/23 History metformin 500 mg tablet,extended 1,500 mg PO DAILY EUGENIA BETES 10/03/19 05/05/23 History release 24 hr hydralazine 10 mg tablet 10 mg PO BID BLOOD PRESSURE 05/06/23 05/05/23 History rosuvastatin 20 mg tablet 20 mg PO DAILY CHOLESTEROL 1 05/05/23 History pantoprazole 40 mg tablet,delayed 40 mg PO DAILY 30 da ys #30 tabs 05/07/23 Unknown Rx release hydrocodone-acetaminophen 5-325mg 1 tab PO Q6H PRN PRN Pain 3 days 12/22/24 Unknown Rx 5mg-325mg #10 TABLETS levofloxacin 750 mg tablet 750 mg PO DAILY #5 tabs 07/06 Unknown Rx ondansetron 4 mg disintegrating 4 mg PO Q8H PRN PRN Na usea #10 tabs 12/22/24 Unknown Rx tablet Allergy/AdvReac Type Severity Reaction Status Date / Time nickel Allergy Rash Verified 01/03/25 11:57 Penicillins (PCN) Allergy Hives Verified 01/03/25 11:57 nicotine (From Nicoderm CQ) AdvReac Severe TERRIBLE Verified 01/03/25 11:57 NIGHTMARES Family History Mother Kidney disease Congestive heart failure Renal failure Father CAD (coronary artery disease) Daughter Hypertension Surgical History History of left heart catheterization (10/05/19) Stented coronary artery (03/03/19) History of tubal ligation History of total right knee replacement History of History of tonsillectomy and adenoidectomy History of rotator cuff surgery History of selective injection of anesthetic agent around lumbar nerve root History of arthroscopic knee surgery History of esophagogastroduodenoscopy (EGD) History of colonoscopy History of cholecystectomy S/P CABG x 2 (10/17/15) Social History Smoking Status: Current every day smoker tobacco type: cigarettes alcohol intake: never substance use type: does not use ROS ROS ED ROS Narrative Constitutional: Denies fevers, chills, headaches Cardiovascular: Denies chest pain Respiratory: Denies shortness of breath Abdomen: Denies abdominal pain nausea vomit diarrhea : Complains of the painful urination Neurological: Denies numbness, weakness, tingling Musculoskeletal: Denies back pain Skin: Denies rashes or lesions EXAM Physical Exam Narrative Exam Narrative: General: Patient was lying in bed rest comfortably did not appear to be in acutedistress Head: Atraumatic, normocephalic Eyes: PERRL bilaterally, EOMI bilateral, no conjunctival injection noted Neck: Soft, supple, trachea midline Cardiovascular: Regular rate and rhythm Respiratory: Clear to auscultation bilaterally Abdomen: Soft, tenderness to palpation epigastric and right upper quadrants no rebound or guarding on exam Extremities: +5/5 strength noted in the bilateral upper and lower extremities, you pulses +2/4 in the bilateral extremities, no pedal edema on exam Neurological: Patient follow commands knew that she was at [facility] year2024 Skin: Warm, dry, intact no rashes or lesions noted Const Vital Signs: 01/03/25 11:53 01/03/25 13:04 01/03/25 13:57 Temperature 97.6 F L 97.6 F L Temperature Source Oral Oral Pulse Rate 78 73 Pulse Rate [Lying] Pulse Rate [Sitting (for 1 minute prior to obtaining)] Pulse Rate [Standing (for 1 minute prior to obtaining)] Respiratory Rate 20 H 15 Blood Pressure 125/72 H 99/57 L Blood Pressure [Lying] Blood Pressure [Sitting (for 1 minute prior to obtaining)] Blood Pressure [Standing (for 1 minute prior to obtaining)] Blood Pressure Mean 89 71 Blood Pressure Mean [Lying] Blood Pressure Mean [Sitting (for 1 minute prior to obtaining)] Blood Pressure Mean [Standing (for 1 minute prior to obtaining)] Pulse Ox 96 96 Oxygen Delivery Method Room Air Room Air Room Air 01/03/25 14:00 01/03/25 15:00 01/03/25 16:58 Temperature 98.2 F 97.8 F Temperature Source Oral Temporal Pulse Rate 70 65 Pulse Rate [Lying] 65 Pulse Rate [Sitting (for 1 minute prior to obtaining)] 66 Pulse Rate [Standing (for 1 minute prior to obtaining)] 73 Respiratory Rate 15 17 Blood Pressure 116/67 127/71 H Blood Pressure [Lying] 119/56 L Blood Pressure [Sitting (for 1 minute prior to obtaining)] 125/68 H Blood Pressure [Standing (for 1 minute prior to obtaining)] 122/68 H Blood Pressure Mean 83 89 Blood Pressure Mean [Lying] 77 Blood Pressure Mean [Sitting (for 1 minute prior to obtaining)] 87 Blood Pressure Mean [Standing (for 1 minute prior to obtaining)] 86 Pulse Ox 95 97 Oxygen Delivery Method Room Air Room Air 01/03/25 17:12 Temperature Temperature Source Pulse Rate 74 Pulse Rate [Lying] Pulse Rate [Sitting (for 1 minute prior to obtaining)] Pulse Rate [Standing (for 1 minute prior to obtaining)] Respiratory Rate 12 Blood Pressure 122/68 H Blood Pressure [Lying] Blood Pressure [Sitting (for 1 minute prior to obtaining)] Blood Pressure [Standing (for 1 minute prior to obtaining)] Blood Pressure Mean 86 Blood Pressure Mean [Lying] Blood Pressure Mean [Sitting (for 1 minute prior to obtaining)] Blood Pressure Mean [Standing (for 1 minute prior to obtaining)] Pulse Ox 97 Oxygen Delivery Method MDM MDM MDM Narrative Medical decision making narrative: Patient is a 64-year-old female who presented to the emergency department the chief complaint of generalized fatigue, weakness not feeling well. On the differential diagnose includes but not limited to UTI, pyelonephritis, choledocholithiasis, pancreatitis. Once workup is obtained reviewed she will bereevaluated. Patient's PCP called in and I discussed with them she states that she was recently discharged afterbeing diagnosed with pyelonephritis and was placed on Bactrim and Levaquin she states that in the office today she was extremely weak is having poor oral intake and her blood pressure was noted to be90/70 and after she tried to stand up it went to 70/40 therefore they had her brought hereto be further evaluated. Patient CBC reviewed showed a white blood count 11,000, hemoglobin 15.6, platelet count of 459. Patient's INR normal at 1.1, PT of 14.6. Patient sodiumis 135, potassium normal at 4.9, creatinine elevated 1.39 which is slightly elevated from a previous blood draw on 12/21/2024. Patient lactic acid normal at1.7, AST and ALT were 43 and 29 respectively. Patient's urinalysis reviewed andshowed 25 leukocyte esterase negative nitrates 10-25 white cells with no bacteria noted which is improved from theurinalysis on 12/21/2024. Patient CT abdomen pelvis with IV contrast reviewed today which showed fatty infiltration the liver status post cholecystectomy. Stable left renal cyst small umbilical herniacontaining fat. Sigmoid diverticulosis Patient ambulated here in the emergency department she states that she felt verylightheaded and weak overall and she states that she is still having severe painin her abdomen. Patient is requesting where her pain medications. At this point time will discuss case with hospitalist for admission for her intractable abdominal pain nausea and lightheadedness with ambulation orthostatic vital signs will be obtained. Patient got up and ambulated to the bathroom again and felt very lightheaded andweak with her intractable abdominal pain nausea. Orthostatic vital signs negative I discussed case with hospitalist She will accept patient for admission. Patient is agreeable this plan all course concerns answered. Lab Data Labs: Laboratory Results - last 24 hr 01/03/25 01/03/25 01/03/25 13:04 13:13 13:38 WBC 11.4 H RBC 5.09 Hgb 15.6 H Hct 47.1 H MCV 92.5 MCH 30.6 MCHC 33.1 RDW Std Deviation 45.5 H RDW Coeff of Aubrey 13.3 Plt Count 459 H MPV 9.3 Immature Gran % (Auto) 0.400 Neut % (Auto) 53.8 Lymph % (Auto) 35.6 Barton % (Auto) 7.7 Eos % (Auto) 1.3 Baso % (Auto) 1.2 H Absolute Neuts (auto) 6.1 Absolute Lymphs (auto) 4.07 Nucleated RBC % 0 PT 14.6 INR 1.1 APTT 26.3 Sodium 135 Potassium 4.9 Chloride 100 Carbon Dioxide 21.6 Anion Gap 13 BUN 20 H Creatinine 1.39 H Estim Creat Clear Calc 54.91 Est GFR (MDRD) Non-Af 42 L BUN/Creatinine Ratio 14.5 Glucose 133 H Lactic Acid 1.7 Calcium 9.9 Total Bilirubin 0.50 AST 43 H ALT 29 Alkaline Phosphatase 57 Total Protein 7.6 Albumin 3.7 Globulin 3.8 Albumin/Globulin Ratio 1.0 Urine Color Yellow Urine Clarity Sl. Cloudy Urine pH 6.0 Ur Specific [place] 1.020 Urine Protein 30 H Urine Glucose (UA) Normal Urine Ketones Negative Urine Occult Blood 25 H Urine Nitrite Negative Urine Bilirubin 1 H Urine Urobilinogen 1 H Ur Leukocyte Esterase 25 H Urine RBC 0-5 SEEN Urine WBC 10-25 SEEN Ur Squamous Epith Cells 5-10 SEEN Urine Bacteria 0 SEEN Urine Mucus 0 SEEN Radiography Diagnostic Testing: Clinical Impression(s) from Imaging Studies Abdomen/Pelvis CT 01/03/25 13:55 IMPRESSION: Fatty infiltration of the liver. Status post cholecystectomy. Stable left renal cyst. Small umbilical hernia containing fat. Sigmoid diverticulosis. Reading Location: [id number] Discharge Plan Triage Chief Complaint: Weakness ED Provider: Clem Madden Dx/Rx/DC Orders Clinical Impression: Generalized weakness, Intractable nausea, Intractable abdominal pain Prescriptions: No Action metoprolol succinate 50 mg tablet extended release 24 hr 50 mg PO DAILY ipratropium-albuterol 0.5 mg-3 mg(2.5 mg base)/3 mL solution for nebulization 3 ml INHALATION 4X/DAY PRN (Reason: SHORTNESS OF BREATH/WHEEZING ) Patient Comments: NOT TAKING OFTEN BECAUSE ITS HARD TO CLEAN aspirin 81 mg tablet,delayed release (DR/EC) 162 mg PO DAILY nitroglycerin 0.4 MG tablet 0.4 mg sublingual Q5M PRN (Reason: CHEST PAIN ) gabapentin 300 MG capsule 300 mg PO QHS albuterol sulfate 1 INHALER inhaler 2 puff inhalation Q4H PRN (Reason: SHORTNESS OF BREATH/WHEEZING) Patient Comments: NOT TAKING OFTEN THEY SHOULD lisinopril 20 MG tablet 20 mg PO DAILY metformin 500 MG tablet extended release 24 hr 1,500 mg PO DAILY hydralazine 10 MG tablet 10 mg PO BID rosuvastatin 20 mg tablet 20 mg PO DAILY pantoprazole 40 mg Tablet,Delayed Release (Dr/Ec) 40 mg PO DAILY 30 Days Qty: 30 0RF hydrocodone-acetaminophen 5-325 mg tablet 1 tab PO Q6H PRN PRN (Reason: Pain) 3 Days Qty: 10 0RF ondansetron 4 mg tablet,disintegrating 4 mg PO Q8H PRN PRN (Reason: Nausea) Qty: 10 0RF levofloxacin 750 mg tablet 750 mg PO DAILY Qty: 5 0RF clopidogrel 75 mg tablet 75 mg PO DAILY Qty: 90 3RF Primary Care Provider: Mac Olvera Referrals: Mac Olvera MD [Primary Care Provider] - Print Language: Lao Disposition Disposition: Acute Care Hospital [facility] What to do if you have Problems For any increased pain, shortness of breath, bleeding, nausea or vomiting, chestpain, or any unexpected problems, contact your Primary Care Provider. Call [facility] ([phone]) or report tothe closest Emergency Room. Call 911 if necessary. 01/03/25 1729 Cosigner Signature (if applicable): CC: Dr. Mac Olvera MD ~ Signed [facility]06-24-2025 Radiology Diagnostic study note [facility] Imaging Services [address] [place] [address] Abdomen/Pelvis W IV Cont ONLY MR#: [id number] Acct: [id number] Name: CAROL NOLAN Rep #: [id number] : 1960 F 64 From: Juan Manuel Hewitt MD PCP: Dr. Mac Olvera MD Status: REG E R Study:Abdomen/Pelvis W IV Cont ONLY Date of E xam: 01/03/25 Exam# [id number] Ordering Dr: Rachel Madden DO PROCEDURE: ABDOMEN/PELVIS W IV CONT ONLY 01/03/2025 REASON FOR EXAM: ABD PAIN TECHNIQUE: ABDOMEN/PELVIS W IV CONT ONLY Coronal and Sagittal reconstruction series were provided. CONTRAST: Isovue-300 VOLUME: 85 mL One or more dose reduction techniques were used (e.g., Automated exposure control, adjustment of the mA and/or kV according to patient size, use of iterative reconstruction technique. RADIATION DOSE SUMMARY: CTDlvol: 17 mGy DLP: 1361.11 mGycm COMPARISON: Prior study dated December 21, 2024. FINDINGS: Lung bases: Lung bases are clear. Liver: Diffuse fatty infiltration. Gallbladder: Surgically absent. Spleen: Normal size. Pancreas: Normal size without evidence of mass surrounding inflammation or ductal dilation. Adrenals: Unremarkable Kidneys: There is a 3.2 cm cyst in the upper lateral portion of the left kidney. Right kidney is unremarkable. Bladder: Unremarkable There is evidence of an umbilical hernia containing fat. The neck of the herniameasures 1.5 cm. Bowel: Colonic diverticulosis without diverticulitis.. Evidence of prior bilateral tubal ligation clips. Appendix: The appendix is not identified. There is no inflammatory process identified in the right lower quadrant to suggest appendicitis. Lymph nodes: Small benign-appearing retroperitoneal lymph nodes. Vasculature: Mild diffuse atherosclerotic calcifications are noted. Peritoneum / Retroperitoneum: Unremarkable Bones: Degenerative changes of the spine. CT/Abdomen/Pelvis W IV Cont ONLY IMPRESSION: Fatty infiltration of the liver. Status post cholecystectomy. Stable left renal cyst. Small umbilical hernia containing fat. Sigmoid diverticulosis. Reading Location: [facility] CC: Dr. Clem Madden DO; Dr. Mac Olvera MD ~ Enterprise Data Architect: Signed [facility]06-24-2025 History of Present illness Narrative* Suppan, Lauryn A, [facility] - 01/03/2025 11:14 AM EDT This is a 64 year old female who presents today with: No chief complaint on file. HISTORY OF PRESENT ILLNESS: Carol Nolan is a 64 year old female. No chief complaint on file. Carol Nolan is a 64-year-old female presenting for evaluation of persistent symptoms following a recent ER visit for a UTI. UTI: - Recent ER visit on the for fever, dysuria, bladder pain, nausea, and emesis. - Persistent nausea and emesis; attributes emesis to decreased oral intake. - Unintentional weight loss of approximately 10 lbs. - Increased fluid intake, particularly water and cranberry juice, but reports difficulty retaining fluids. - Urine described as resembling motor oil during ER visit. - Treated with Levaquin and Bactrim DS BID for 7 days. - Reports bilateral flank pain, currently mild. - Sensation of a baseball in the bladder; pain alleviated by prescribed analgesics. - Experiences severe chills with normal body temperature readings. - Reports feeling really weak, sweaty and more dyspneic than usual. - Describes feeling too weak and tired, disoriented to engage in activities. - Denies history of yeast infections. - Blood glucose levels reportedly elevated, with readings up to 250 mg/dL. PAST MEDICAL HISTORY: PAST MEDICAL HISTORY Diagnosis Date Arthritis Chronic back pain Cigarette smoker Colon polyps COPD (chronic obstructive pulmonary disease) (HCC) Coronary artery disease Coronary artery disease involving upper [place] coronary artery of upper [place] heart without angina pectoris Degeneration of intervertebral disc of lumbar region with discogenic back pain Dental caries Diabetes (HCC) Diarrhea Enlarged aorta Essential hypertension Fatty liver ultra sound 2014 Hyperglycemia Hyperlipidemia Obesity Preinfarction syndrome (HCC) S/P CABG x 2 Tobacco abuse Type 2 diabetes mellitus without complication, without long-term current use of insulin (HCC) PAST SURGICAL HISTORY Procedure Laterality Date CABG (2) VEIN GRAFTS & ARTERIAL GRAFT(S 10/17/2015 DELIVERY ONLY , low transverse CHOLECYSTECTOMY HX maybe 1989' COLONOSCOPY 11/27/2017 COLONOSCOPY FLX DX W/COLLJ SPEC WHEN PFRMD 05/17/2015 Colonoscopy [facility] outpt ESOPHAGOGASTRODUODENOSCOPY TRANSORAL DIAGNOSTIC 05/17/2015 EGD [facility] outpt HEART SURGERY HX JOINT REPLACEMENT HX ORTHOPEDICS SURGERY HX Left RCR PAST SURGICAL HISTORY OF Bilateral knee arthroscopy PAST SURGICAL HISTORY OF lumbar pain injections PAST SURGICAL HISTORY OF Repair tendon/muscle arm-left rotator cuff surgery TONSILLECTOMY AND ADENOIDECTOMY HX TONSILLECTOMY HX TOTAL KNEE REPLACEMENT right TUBAL LIGATION HX ALLERGIES Penicillins and Nickel MEDICATIONS Current Outpatient Medications Medication Sig mometasone-formoterol (DULERA) 200-5 mcg/actuation inhaler Inhale 1 puff as instructed two times a day. fluticasone-vilanterol (BREO ELLIPTA) 200-25 mcg/dose inhaler Inhale 1 Inhalation as instructed once daily. Blood-Glucose Sensor (FREESTYLE GARDENIA 3 SENSOR) chana Use as directed. Cyanocobalamin 1,000 mcg TbER Take 1 tablet by mouth once daily. dulaglutide (TRULICITY) 0.75 mg/0.5 mL pen injector Inject 0.75 mg subcutaneously one time a week. Inject dose once per week. Discard Pen After DULoxetine (CYMBALTA) 30 mg capsule Take 1 capsule by mouth once daily. metFORMIN ER (GLUCOPHAGE XR) 500 mg 24 hr tablet Take 3 tablets by mouth daily with breakfast. metoprolol succinate ER (TOPROL XL) 50 mg 24 hr tablet Take 1 tablet by mouth once daily. clopidogrel (PLAVIX) 75 mg tablet Take 1 tablet by mouth once daily. gabapentin (NEURONTIN) 300 mg capsule Take 1 capsule by mouth daily at bedtime for 180 days. lisinopril (ZESTRIL) 40 mg tablet Take 1 tablet by mouth once daily. albuterol HFA (PROVENTIL HFA, VENTOLIN HFA) 90 mcg/actuation inhaler Inhale 2 Puffs as instructed every 6 hours as needed for wheezing/shortness of breath. Ibuprofen 200 mg cap Take by mouth every 6 hours as needed for pain. aspirin, enteric coated (ASPIRIN, ENTERIC COATED) 81 mg EC tablet Take 2 tablets by mouth once daily. rosuvastatin (CRESTOR) 40 mg tablet Take 1 tablet by mouth once daily. Blood-Glucose Meter,Continuous (FREESTYLE GARDENIA 3 READER) [facility] [place] Use as directed nitroglycerin sublingual (NITROQUICK) 0.4 mg SL tablet Dissolve 1 tablet under the tongue as neededfor chest pain. Blood-Glucose Meter (FrontierreUCH ULTRA2 METER) USE DIRECTED blood sugar diagnostic (BLOOD GLUCOSE TEST) test strip Test blood sugar(s) 1 times daily. Dx: Type 2 DM - Uncontrolled E11.65 Insulin: No Lancets lancets Test blood sugar(s) 1 times daily. Dx: Type 2 DM - Uncontrolled E11.65 Insulin: No ipratropium-albuterol (DUONEB) 0.5 mg-3 mg(2.5 mg base)/3 mL nebu Inhale 3 mL as instructed four times daily. No current facility-administered medications for this visit. FAMILY HISTORY Problem Relation Age of Onset other (congestive heart failure) Mother other (CKD) Mother other (renal failure) Mother Ischemic Heart Disease Father Lung Cancer Maternal Grandfather Hypertension Daughter lung Social History Tobacco Use Smoking status: Every Day Current packs/day: 2.00 Average packs/day: 2.0 packs/day for 52.7 years (105.4 ttl pk-yrs) Types: Cigarettes Start date: 04/27/1972 Smokeless tobacco: Former Types: Snuff Tobacco comments: started smoking at age 11;cigarette; Amount: 20-39 cigs/day; 1 1/2 - 2 ppd x 43 years; Vaping Use Vaping status: Never Used Substance Use Topics Alcohol use: Yes Alcohol/week: 8.0 standard drinks of alcohol Types: 8 Cans of Beer (12oz) per week Drug use: Not Currently Types: Marijuana REVIEW OF SYSTEMS Constitutional: (+) fever, (+) unintentional weight loss, (+) weakness, (+) chills Gastrointestinal: (+) nausea, (+) vomiting Genitourinary: (+) dysuria, (+) bladder pain, (+) urinary incontinence, (+) bilateral flank pain, (+) bladder fullness Skin: (+) diaphoresis Neurological: (+) dizziness EXAM: BP 100/64 Pulse 84 Temp 36.4 C (97.6 F) (Left Tympanic) Wt 128.8 kg (284 lb) SpO2 95% BMI47.03 kg/m PHYSICAL EXAM: GENERAL: NAD, alert and oriented but very weak SKIN: unremarkable, no rash or skin lesions. HEAD: normocephalic NECK: Supple, no lymphadenopathy, normal thyroid, no carotid bruits. LUNGS: Clear to auscultation bilaterally, no wheezes/rhonchi/rales. HEART: Regular rate and rhythm, no murmurs. No ectopy. EXTREMITIES: Normal, No deformities, No skin discoloration, No edema. + CVA tenderness lee. Unsteady on feet. NEURO: Awake, alert and oriented x3, cranial nerves II-XII grossly intact, normal gait, no involuntary motions LABS: Labs: - WBC: 15.9 10 / L - Hemoglobin: 14.5 g/dL - Hematocrit: 41.7% - Platelet count: 203 10 / L - Immature granulocytes: 1.1% - Neutrophils: 74.3% - Lymphocytes: 15.6% - INR: 1.2 - Sodium: 134 mmol/L - Potassium: 3.0 mmol/L - BUN: 16 mg/dL - Creatinine: 1.27 mg/dL - Glucose: 138 mg/dL - GFR: 47 mL/min - AST: 33 U/L - ALT: 23 U/L - Alkaline phosphatase: 157 U/L - Leukocyte esterase: 100 Imaging: - Abdomen/Pelvis CT: Non-specific right perinephric stranding and colonic diverticulosis. ASSESSMENT/PLAN: 1. Pyelonephritis (N12) - Persistent symptoms of fever, dysuria, abdominal pain, nausea, and vomiting since ER visit on gat88fi. - Significant weight loss of approximately 10 lbs, increased fluid intake, and polyuria reported. - Treated with Levaquin and Bactrim DS; no improvement in symptoms. - Lab results from ER visit: WBC 15.9 x10^3/uL, Hgb 14.5 g/dL, Hct 41.7%, Plt 203 x10^3/uL, immature granulocytes 1.1%, neutrophils 74.3%, lymphocytes 15.6%, INR 1.2, Na 134 mmol/L, K 3.0 mmol/L, BUN16 mg/dL, Cr 1.27 mg/dL, glucose 138 mg/dL, GFR 47 mL/min/1.73m , AST 33 U/L, ALT 23 U/L, Alk Phos 157 U/L, urine leukocyte esterase 100. - CT abdomen/pelvis showed non-specific right perinephric stranding and colonic diverticulosis. - Orthostatic hypotension noted: BP 99/72 mmHg sitting, 70/40 mmHg standing. - Suspected urosepsis; patient exhibits signs of severe dehydration and sepsis. - Immediate hospital admission recommended for IV antibiotics and fluids. - Arranged for ambulance transport to the hospital. - Will contact ER with report. Spoke with Dr. Madden. Discussed treatment plan and patient voices understanding. Patient's questions answered appropriately. Medications and potential side effects were discussed and patient voices understanding. Return to the office as scheduled or as needed for worsening/no improvement. Lauryn Baldwin APRN.ABIGAIL [facility] Telephone encounter Note * Telephone Encounter - Bo Arauz - 12/22/2024 3:38 PM EDT E-script for Dulera 200 MCG-5 MCG Inhaler. [facility]. [facility] [facility] Miscellaneous Notes* Telephone Encounter - Bo Arauz - 12/22/2024 3:38 PM EDT E-script for Dulera 200 MCG-5 MCG Inhaler. [facility]. [facility] Telephone encounter Note * Telephone Encounter - Pebbles Gonzalez MA - 12/22/2024 11:09 AM EDT Pt read Md[employer] message. Pebbles Gonzalez MA December 22, 2024 11:09 AM [facility]12[facility] Miscellaneous Notes* Telephone Encounter - Pebbles Gonzalez MA - 12/22/2024 11:09 AM EDT Pt read [employer] message. Pebbles Gonzalez MA December 22, 2024 11:09 AM * Telephone Encounter - Ro Royal LPN - 12/19/2024 12:50 PM EDT Patient had sent a [employer] message. Did send her a message back to let her know that she needs an appt for evaluation and treatment. * Telephone Encounter - Lauryn Baldwin APRN.CNP - 12/19/2024 12:02 PM EDT Needs an appt. We must get a culture to make certain what we are treating. [facility] Discharge summary [facility] Medical Records Department [address] [place] [address] Emergency Department Summary 12/21/24 MR#: [id number] Acct: [id number] Name: CAROL NOLAN Rep #:[id number] : 1960 64 From: Angel Whyte PCP: Dr. Mac Olvera MD Status:REG E R Location: ED HPI History of Present Illness Chief Complaint: Complaint Informant: patient and family Onset/Context/Timing Onset: Weeks (3) Context: Gradual Onset Timing: Continuous Quality: Burning Location: Suprapubic area and right lower abdomen Worsened by: Urination Relieved by: Nothing Narrative Narrative: Patient presents with weakness and urinary tract infection symptoms. Patient states this has been getting worse over the past 3 weeks. Patient states it is gradually getting worse. Patient states shehas some burning sensation in her bladder area. Patient states it is worse with urinating. Patient states it radiates to the right. Patient admits to fever of 102. Patient admits to some nausea and vomiting. Patient also admits to some shortness of breath. 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 Hyperlipidemia Hypertension Chest pain Home Medications ?Medication ?Instructions ?Recorded ?Last Taken ?Type nitroglycerin 0.4 mg sublingual 0.4 mg sublingual Q5M PRN CHEST 05/15/15 06:00 History tablet PAIN gabapentin 300 mg capsule 300 mg PO QHS NEUROPATHY 01/2505/05/23 History albuterol sulfate 90 mcg/actuation 2 puff inhalation Q 4H PRN 06/17/17 Unknown History aerosol inhaler SHORTNESS OF BREATH/WHEEZING ipratropium 0.5 mg-albuterol 3 mg 3 ml inhalation 4X/D AY PRN 02/28/19 Unknown History (2.5 mg base)/3 mL nebulization SHORTNESS OF BREATH/WH EEZING soln metoprolol succinate 50 mg 50 mg PO DAILY BLOOD PRESSU RE 02/28/19 05/05/23 History tablet,extended release 24 hr aspirin 81 mg tablet,delayed 162 mg PO DAILY HEART HEA LTH 03/01/19 05/05/23 History release clopidogrel 75 mg tablet 75 mg PO DAILY BLOOD THINNER #90 05/19/19 05/05/23 Rx tabs lisinopril 20 mg tablet 20 mg PO DAILY BLOOD PRESSUR E 10/03/19 05/05/23 History metformin 500 mg tablet,extended 1,500 mg PO DAILY EUGENIA BETES 10/03/19 05/05/23 History release 24 hr hydralazine 10 mg tablet 10 mg PO BID BLOOD PRESSURE 05/06/23 05/05/23 History rosuvastatin 20 mg tablet 20 mg PO DAILY CHOLESTEROL 1 05/05/23 History pantoprazole 40 mg tablet,delayed 40 mg PO DAILY 30 da ys #30 tabs 05/07/23 Unknown Rx release hydrocodone-acetaminophen 5-325mg 1 tab PO Q6H PRN PRN Pain 3 days 12/22/24 Unknown Rx 5mg-325mg #10 TABLETS levofloxacin 750 mg tablet 750 mg PO DAILY #5 tabs 07/06 Unknown Rx ondansetron 4 mg disintegrating 4 mg PO Q8H PRN PRN Na usea #10 tabs 12/22/24 Unknown Rx tablet Allergy/AdvReac Type Severity Reaction Status Date / Time nickel Allergy Rash Verified 05/06/23 12:05 Penicillins (PCN) Allergy Hives Verified 05/06/23 12:05 nicotine (From Nicoderm CQ) AdvReac Severe TERRIBLE Verified 05/06/23 12:05 NIGHTMARES Family History Mother Kidney disease Congestive heart failure Renal failure Father CAD (coronary artery disease) Daughter Hypertension Surgical History History of left heart catheterization (10/05/19) Stented coronary artery (03/03/19) History of tubal ligation History of total right knee replacement History of History of tonsillectomy and adenoidectomy History of rotator cuff surgery History of selective injection of anesthetic agent around lumbar nerve root History of arthroscopic knee surgery History of esophagogastroduodenoscopy (EGD) History of colonoscopy History of cholecystectomy S/P CABG x 2 (10/17/15) Social History Smoking Status: Current every day smoker tobacco type: cigarettes alcohol intake: never substance use type: does not use ROS ROS ED Constitutional Constitutional ED: Reports fever(s); Denies chills Eyes Eyes: Denies blurry vision or change in vision ENT ENT ED: Denies rhinorrhea or sore throat Cardiovascular Cardiovascular: Denies chest pain or palpitations Respiratory/Chest Respiratory/Chest: Reports dyspnea; Denies cough Gastrointestinal Gastrointestinal: Reports nausea and vomiting Genitourinary Genitourinary ED: Reports dysuria; Denies hematuria Musculoskeletal Musculoskeletal: Reports back pain and neck pain Integumentary Denies abscess or rash Neurologic Neurologic: Reports headache(s); Denies weakness Allergic/Immunologic Allergic/Immunologic ED: Denies mouth swelling or urticaria EXAM Physical Exam Const Vital Signs: 12/21/24 19:15 12/21/24 21:23 12/21/24 21:29 Temperature 98.5 F 98.5 F Temperature Source Oral Oral Pulse Rate 69 74 Respiratory Rate 18 14 Respiratory Effort Normal Respiratory Pattern Normal Blood Pressure 106/69 101/54 L Blood Pressure Mean 81 69 Pulse Ox 95 95 Oxygen Delivery Method Room Air 12/21/24 22:00 12/21/24 23:00 Temperature 98.7 F 98.7 F Temperature Source Oral Oral Pulse Rate 74 77 Respiratory Rate 22 H 15 Respiratory Effort Respiratory Pattern Blood Pressure 113/47 L 91/77 Blood Pressure Mean 69 81 Pulse Ox 97 92 Oxygen Delivery Method Room Air Room Air Positive well nourished and well developed General Appearance ED: well developed and NAD HEENT Reports moist mucous membranes Neck supple and no JVD Resp normal respiratory effort and clear to auscultation bilaterally Cardio regular rate and regular rhythm GI non-distended Palpation: soft and tender RLQ and suprapubic; Negative for guarding or rebound tenderness present Extremity normal to inspection General Extremety ED: Negative for edema or tenderness General Extremity: Negative for edema Neuro oriented x3, CN's II-XII intact bilaterally and no sensory deficits noted Sensorium / Orientation: alert Motor Exam: strength 5/5 throughout Psych mental status grossly normal MDM MDM MDM Narrative Medical decision making narrative: Differential diagnosis includes urinary tract infection, ureteral calculus, appendicitis, pyelonephritis, sepsis, bowel obstruction, perforation, and dehydration. CBC will be obtained to assess for leukocytosis and anemia. Comprehensive metabolic profile will be obtained to assess for hepatic functi on,renal function, and electrolyte abnormality. Urinalysis will be obtained to assess for urinary tract infection and hematuria. CT scan of the abdomen and pelvis will be obtained to assess for appendicitis, ureteral calculus, bowel obstruction, and perforation. Serum lactate will be obtained to assess for sepsis. Urine culture will be obtained to assess for urinary tract infection. Blood cultures will be obtained to assess for sepsis. History & Record Review Additional record(s) reviewed:: Prior inpatient record, Prior ED visit and Priorlabs Lab Data Attestation: I reviewed the patient's lab results. Lab results narrative: CBC was reviewed. There is a leukocytosis of 15.9. Remainder is within normal limits. PT with INR and PTT were reviewed. Pro time was 15.2 and INR was 1.2. PTT normal at 30.3. Comprehensive metabolicprofile was reviewed. Potassium was slightly low at 3.0. Creatinine was slightly elevated at 1.27. This is slightly increased from previous results. Her blood pressure serum lactate was reviewed and was normal at 1.4. Urinalysis was reviewed. Clear there is cloudyyellow urine with leukocyte Estraceof 100. There are 50-100 white blood cells and 3+ bacteria. There are 0-5 epithelial cells. Occult blood was 250 with 25-50 red blood cells. Labs: Laboratory Results - last 24 hr 12/21/24 12/21/24 20:30 20:49 WBC 15.9 H RBC 4.58 Hgb 14.5 Hct 41.7 MCV 91.0 MCH 31.7 MCHC 34.8 RDW Std Deviation 43.0 RDW Coeff of Aubrey 13.0 Plt Count 203 MPV 10.7 Immature Gran % (Auto) 1.100 H Neut % (Auto) 74.3 H Lymph % (Auto) 15.6 L Barton % (Auto) 8.5 Eos % (Auto) 0.1 Baso % (Auto) 0.4 Absolute Neuts (auto) 11.8 H Absolute Lymphs (auto) 2.48 Nucleated RBC % 0 PT 15.2 H INR 1.2 APTT 30.3 Sodium 134 Potassium 3.0 L Chloride 96 L Carbon Dioxide 23.0 Anion Gap 15 BUN 16 Creatinine 1.27 H Estim Creat Clear Calc 60.57 Est GFR (MDRD) Non-Af 47 L BUN/Creatinine Ratio 12.8 Glucose 138 H Lactic Acid 1.4 Calcium 9.5 Total Bilirubin 1.04 AST 33 H ALT 23 Alkaline Phosphatase 157 H Total Protein 7.1 Albumin 3.3 L Globulin 3.8 Albumin/Globulin Ratio 0.8 L Urine Color Yellow Urine Clarity Cloudy Urine pH 6.0 Ur Specific [place] 1.015 Urine Protein 100 H Urine Glucose (UA) Normal Urine Ketones Negative Urine Occult Blood 250 H Urine Nitrite Negative Urine Bilirubin 1 H Urine Urobilinogen 4 H Ur Leukocyte Esterase 100 H Urine RBC 25-50 SEEN Urine WBC 50-100 SEEN Ur Squamous Epith Cells 0-5 SEEN Urine Bacteria 3+ Urine Mucus 2+ Radiography Diagnostic Testing: Clinical Impression(s) from Imaging Studies Abdomen/Pelvis CT 12/21/24 20:28 IMPRESSION: Mild nonspecific right perinephric stranding. Correlate with urinalysis to exclude infection. Colonic diverticulosis. Reading Location: [place] [address] CT scan of the abdomen and pelvis was obtained. There is mild right perinephricstranding. There is no ureteral calculus. There is no bowel obstruction or perforation. There is no free air or free fluid. This was interpreted by the radiologist and was also independently reviewed by myself. Treatment and Re-Evaluation :: Patient was given IV fluids. Patient was advised of her findings. Patient was started on Levaquin due to her allergy to penicillins. Patient was instructed to take diet fluids. Patient was instructedto follow-up with her primary care physician in 3 to 5 days. Patient was given a prescription for Levaquin. Patient was instructed to return if worse in any way. Patient understood and was agreeable with the plan. All questions were answered. Discharge Plan Triage Chief Complaint: Complaint Other Complaint: General Illness ED Provider: Angel Carter Dx/Rx/DC Orders Clinical Impression: Acute pyelonephritis, Diabetes mellitus, type II, Tobacco use disorder Instructions: ED Pyelonephritis, Female (Adult) Prescriptions: New hydrocodone-acetaminophen 5-325 mg tablet 1 tab PO Q6H PRN PRN (Reason: Pain) 3 Days Qty: 10 0RF ondansetron 4 mg tablet,disintegrating 4 mg PO Q8H PRN PRN (Reason: Nausea) Qty: 10 0RF levofloxacin 750 mg tablet 750 mg PO DAILY Qty: 5 0RF No Action metoprolol succinate 50 mg tablet extended release 24 hr 50 mg PO DAILY ipratropium-albuterol 0.5 mg-3 mg(2.5 mg base)/3 mL solution for nebulization 3 ml INHALATION 4X/DAY PRN (Reason: SHORTNESS OF BREATH/WHEEZING ) Patient Comments: NOT TAKING OFTEN BECAUSE ITS HARD TO CLEAN aspirin 81 mg tablet,delayed release (DR/EC) 162 mg PO DAILY nitroglycerin 0.4 MG tablet 0.4 mg sublingual Q5M PRN (Reason: CHEST PAIN ) gabapentin 300 MG capsule 300 mg PO QHS albuterol sulfate 1 INHALER inhaler 2 puff inhalation Q4H PRN (Reason: SHORTNESS OF BREATH/WHEEZING) Patient Comments: NOT TAKING OFTEN THEY SHOULD lisinopril 20 MG tablet 20 mg PO DAILY metformin 500 MG tablet extended release 24 hr 1,500 mg PO DAILY hydralazine 10 MG tablet 10 mg PO BID rosuvastatin 20 mg tablet 20 mg PO DAILY pantoprazole 40 mg Tablet,Delayed Release (Dr/Ec) 40 mg PO DAILY 30 Days Qty: 30 0RF clopidogrel 75 mg tablet 75 mg PO DAILY Qty: 90 3RF Primary Care Provider: Mac Olvera Referrals: Mac Olvera MD [Primary Care Provider] - 3-5 Days Print Language: Lao Disposition Disposition: Home, Self Care What to do if you have Problems For any increased pain, shortness of breath, bleeding, nausea or vomiting, chestpain, or any unexpected problems, contact your Primary Care Provider. Call [facility] ([phone]) or report tothe closest Emergency Room. Call 911 if necessary. 12/22/24 0152 Cosigner Signature (if applicable): CC: Dr. Mac Olvera MD ~ Signed [facility]06-11-2025 Radiology Diagnostic study note [facility] Imaging Services [address] [place] [address] Abdomen/Pelvis W IV Cont ONLY MR#: [id number] Acct: [id number] Name: CAROL NOLAN Rep #: [id number] : 1960 F 64 From: Baljeet Henriquez MD PCP: Dr. Mac Olvera MD Status: REG E R Study:Abdomen/Pelvis W IV Cont ONLY Date of E xam: 12/21/24 Exam# [id number] Ordering Dr: Angel Carter DO PROCEDURE: ABDOMEN/PELVIS W IV CONT ONLY 12/21/2024 REASON FOR EXAM: ABDOMINAL PAIN TECHNIQUE: Abdomen and pelvis CT with intravenous contrast. Coronal and Sagittal reconstruction series were provided. PATIENT PREPARATION: Per protocol One or more dose reduction techniques were used (e.g., Automated exposure control, adjustment of the mA and/or kV according to patient size, use of iterative reconstruction technique. RADIATION DOSE SUMMARY: CTDlvol: 3.32+ 23.76 mGy DLP: 1307.59 mGycm COMPARISON: None. FINDINGS: Periumbilical fat containing hernia. Degenerative changes of the spine. Moderate atherosclerosis. Normal caliber abdominal aorta. Surgical clips within the pelvis. No suspicious lymphadenopathy. Hypodense liver suggestive of steatosis. Prior cholecystectomy. The pancreas, spleen, and adrenals are unremarkable. Bilateral renal subcentimeter hypodense lesions that are too small to characterize. Left kidney upper pole simple cyst. No hydroureteronephrosis. Mild nonspecific right perinephric stranding. The urinary bladder is decompressed limiting assessment. The uterus is unremarkable. Normal caliber large and small bowel. Scattered colonic no significant surrounding inflammatory changes. CT/Abdomen/Pelvis W IV Cont ONLY IMPRESSION: Mild nonspecific right perinephric stranding. Correlate with urinalysis to exclude infection. Colonic diverticulosis. Reading Location: [id number] CC: Dr. Angel Carter DO; Dr. Mac Olvera MD ~ Enterprise Data [employer]: Signed [facility]06-11-2025 Discharge summary Author Angel Carter [facility] Note Date/Time December 22, 2024 1:52 am [facility] Medical Records Department [address] [place] [address] Emergency Department Summary 12/21/24 MR#: [id number] Acct: [id number] Name: CAROL NOLAN Rep #:[id number] : 1960 64 From: Angel Whyte PCP: Dr. Mac Olvera MD Status:REG E R Location: ED HPI History of Present Illness Chief Complaint: Complaint Informant: patient and family Onset/Context/Timing Onset: Weeks (3) Context: Gradual Onset Timing: Continuous Quality: Burning Location: Suprapubic area and right lower abdomen Worsened by: Urination Relieved by: Nothing Narrative Narrative: Patient presents with weakness and urinary tract infection symptoms. Patient states this has been getting worse over the past 3 weeks. Patient states it is gradually getting worse. Patient states she has some burning sensation in her bladder area. Patient states it is worse with urinating. Patient states it radiates to the right. Patient admits to fever of 102. Patient admits to some nausea and vomiting. Patient also admits to some shortness of breath. 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 Hyperlipidemia Hypertension Chest pain Home Medications ?Medication ?Instructions ?Recorded ?Last Taken ?Type nitroglycerin 0.4 mg sublingual 0.4 mg sublingual Q5M PRN CHEST 05/15/15 06:00 History tablet PAIN gabapentin 300 mg capsule 300 mg PO QHS NEUROPATHY 01/2505/05/23 History albuterol sulfate 90 mcg/actuation 2 puff inhalation Q 4H PRN 06/17/17 Unknown History aerosol inhaler SHORTNESS OF BREATH/WHEEZING ipratropium 0.5 mg-albuterol 3 mg 3 ml inhalation 4X/D AY PRN 02/28/19 Unknown History (2.5 mg base)/3 mL nebulization SHORTNESS OF BREATH/WH EEZING soln metoprolol succinate 50 mg 50 mg PO DAILY BLOOD PRESSU RE 02/28/19 05/05/23 History tablet,extended release 24 hr aspirin 81 mg tablet,delayed 162 mg PO DAILY HEART HEA LTH 03/01/19 05/05/23 History release clopidogrel 75 mg tablet 75 mg PO DAILY BLOOD THINNER #90 05/19/19 05/05/23 Rx tabs lisinopril 20 mg tablet 20 mg PO DAILY BLOOD PRESSUR E 10/03/19 05/05/23 History metformin 500 mg tablet,extended 1,500 mg PO DAILY EUGENIA BETES 10/03/19 05/05/23 History release 24 hr hydralazine 10 mg tablet 10 mg PO BID BLOOD PRESSURE 05/06/23 05/05/23 History rosuvastatin 20 mg tablet 20 mg PO DAILY CHOLESTEROL 1 05/05/23 History pantoprazole 40 mg tablet,delayed 40 mg PO DAILY 30 da ys #30 tabs 05/07/23 Unknown Rx release hydrocodone-acetaminophen 5-325mg 1 tab PO Q6H PRN PRN Pain 3 days 12/22/24 Unknown Rx 5mg-325mg #10 TABLETS levofloxacin 750 mg tablet 750 mg PO DAILY #5 tabs 07/06 Unknown Rx ondansetron 4 mg disintegrating 4 mg PO Q8H PRN PRN Na usea #10 tabs 12/22/24 Unknown Rx tablet Allergy/AdvReac Type Severity Reaction Status Date / Time nickel Allergy Rash Verified 05/06/23 12:05 Penicillins (PCN) Allergy Hives Verified 05/06/23 12:05 nicotine (From Nicoderm CQ) AdvReac Severe TERRIBLE Verified 05/06/23 12:05 NIGHTMARES Family History Mother Kidney disease Congestive heart failure Renal failure Father CAD (coronary artery disease) Daughter Hypertension Surgical History History of left heart catheterization (10/05/19) Stented coronary artery (03/03/19) History of tubal ligation History of total right knee replacement History of History of tonsillectomy and adenoidectomy History of rotator cuff surgery History of selective injection of anesthetic agent around lumbar nerve root History of arthroscopic knee surgery History of esophagogastroduodenoscopy (EGD) History of colonoscopy History of cholecystectomy S/P CABG x 2 (10/17/15) Social History Smoking Status: Current every day smoker tobacco type: cigarettes alcohol intake: never substance use type: does not use ROS ROS ED Constitutional Constitutional ED: Reports fever(s); Denies chills Eyes Eyes: Denies blurry vision or change in vision ENT ENT ED: Denies rhinorrhea or sore throat Cardiovascular Cardiovascular: Denies chest pain or palpitations Respiratory/Chest Respiratory/Chest: Reports dyspnea; Denies cough Gastrointestinal Gastrointestinal: Reports nausea and vomiting Genitourinary Genitourinary ED: Reports dysuria; Denies hematuria Musculoskeletal Musculoskeletal: Reports back pain and neck pain Integumentary Denies abscess or rash Neurologic Neurologic: Reports headache(s); Denies weakness Allergic/Immunologic Allergic/Immunologic ED: Denies mouth swelling or urticaria EXAM Physical Exam Const Vital Signs: 12/21/24 19:15 12/21/24 21:23 12/21/24 21:29 Temperature 98.5 F 98.5 F Temperature Source Oral Oral Pulse Rate 69 74 Respiratory Rate 18 14 Respiratory Effort Normal Respiratory Pattern Normal Blood Pressure 106/69 101/54 L Blood Pressure Mean 81 69 Pulse Ox 95 95 Oxygen Delivery Method Room Air 12/21/24 22:00 12/21/24 23:00 Temperature 98.7 F 98.7 F Temperature Source Oral Oral Pulse Rate 74 77 Respiratory Rate 22 H 15 Respiratory Effort Respiratory Pattern Blood Pressure 113/47 L 91/77 Blood Pressure Mean 69 81 Pulse Ox 97 92 Oxygen Delivery Method Room Air Room Air Positive well nourished and well developed General Appearance ED: well developed and NAD HEENT Reports moist mucous membranes Neck supple and no JVD Resp normal respiratory effort and clear to auscultation bilaterally Cardio regular rate and regular rhythm GI non-distended Palpation: soft and tender RLQ and suprapubic; Negative for guarding or rebound tenderness present Extremity normal to inspection General Extremety ED: Negative for edema or tenderness General Extremity: Negative for edema Neuro oriented x3, CN's II-XII intact bilaterally and no sensory deficits noted Sensorium / Orientation: alert Motor Exam: strength 5/5 throughout Psych mental status grossly normal MDM MDM MDM Narrative Medical decision making narrative: Differential diagnosis includes urinary tract infection, ureteral calculus, appendicitis, pyelonephritis, sepsis, bowel obstruction, perforation, and dehydration. CBC will be obtained to assess for leukocytosis and anemia. Comprehensive metabolic profile will be obtained to assess for hepatic function,renal function, and electrolyte abnormality. Urinalysis will be obtained to assess for urinary tract infection and hematuria. CT scan of the abdomen and pelvis will be obtained to assess for appendicitis, ureteral calculus, bowel obstruction, and perforation. Serum lactate will be obtained to assess for sepsis. Urine culture will be obtained to assess for urinary tract infection. Blood cultures will be obtained to assess for sepsis. History & Record Review Additional record(s) reviewed:: Prior inpatient record, Prior ED visit and Priorlabs Lab Data Attestation: I reviewed the patient's lab results. Lab results narrative: CBC was reviewed. There is a leukocytosis of 15.9. Remainder is within normal limits. PT with INR and PTT were reviewed. Pro time was 15.2 and INR was 1.2. PTT normal at 30.3. Comprehensive metabolic profile was reviewed. Potassium was slightly low at 3.0. Creatinine was slightly elevated at 1.27. This is slightly increased from previous results. Her blood pressure serum lactate was reviewed and was normal at 1.4. Urinalysis was reviewed. Clear there is cloudyyellow urine with leukocyte Estrace of 100. There are 50-100 white blood cells and 3+ bacteria. There are 0- 5 epithelial cells. Occult blood was 250 with 25-50 red blood cells. Labs: Laboratory Results - last 24 hr 12/21/24 12/21/24 20:30 20:49 WBC 15.9 H RBC 4.58 Hgb 14.5 Hct 41.7 MCV 91.0 MCH 31.7 MCHC 34.8 RDW Std Deviation 43.0 RDW Coeff of Aubrey 13.0 Plt Count 203 MPV 10.7 Immature Gran % (Auto) 1.100 H Neut % (Auto) 74.3 H Lymph % (Auto) 15.6 L Barton % (Auto) 8.5 Eos % (Auto) 0.1 Baso % (Auto) 0.4 Absolute Neuts (auto) 11.8 H Absolute Lymphs (auto) 2.48 Nucleated RBC % 0 PT 15.2 H INR 1.2 APTT 30.3 Sodium 134 Potassium 3.0 L Chloride 96 L Carbon Dioxide 23.0 Anion Gap 15 BUN 16 Creatinine 1.27 H Estim Creat Clear Calc 60.57 Est GFR (MDRD) Non-Af 47 L BUN/Creatinine Ratio 12.8 Glucose 138 H Lactic Acid 1.4 Calcium 9.5 Total Bilirubin 1.04 AST 33 H ALT 23 Alkaline Phosphatase 157 H Total Protein 7.1 Albumin 3.3 L Globulin 3.8 Albumin/Globulin Ratio 0.8 L Urine Color Yellow Urine Clarity Cloudy Urine pH 6.0 Ur Specific [place] 1.015 Urine Protein 100 H Urine Glucose (UA) Normal Urine Ketones Negative Urine Occult Blood 250 H Urine Nitrite Negative Urine Bilirubin 1 H Urine Urobilinogen 4 H Ur Leukocyte Esterase 100 H Urine RBC 25-50 SEEN Urine WBC 50-100 SEEN Ur Squamous Epith Cells 0-5 SEEN Urine Bacteria 3+ Urine Mucus 2+ Radiography Diagnostic Testing: Clinical Impression(s) from Imaging Studies Abdomen/Pelvis CT 12/21/24 20:28 IMPRESSION: Mild nonspecific right perinephric stranding. Correlate with urinalysis to exclude infection. Colonic diverticulosis. Reading Location: [place] [address] CT scan of the abdomen and pelvis was obtained. There is mild right perinephricstranding. There is no ureteral calculus. There is no bowel obstruction or perforation. There is no free air or free fluid. This was interpreted by the radiologist and was also independently reviewed by myself. Treatment and Re-Evaluation :: Patient was given IV fluids. Patient was advised of her findings. Patient was started on Levaquin due to her allergy to penicillins. Patient was instructed to take diet fluids. Patient was instructed to follow-up with her primary care physician in 3 to 5 days. Patient was given a prescription for Levaquin. Patient was instructed to return if worse in any way. Patient understood and was agreeable with the plan. All questions were answered. Discharge Plan Triage Chief Complaint: Complaint Other Complaint: General Illness ED Provider: Angel Carter Dx/Rx/DC Orders Clinical Impression: Acute pyelonephritis, Diabetes mellitus, type II, Tobacco use disorder Instructions: ED Pyelonephritis, Female (Adult) Prescriptions: New hydrocodone-acetaminophen 5-325 mg tablet 1 tab PO Q6H PRN PRN (Reason: Pain) 3 Days Qty: 10 0RF ondansetron 4 mg tablet,disintegrating 4 mg PO Q8H PRN PRN (Reason: Nausea) Qty: 10 0RF levofloxacin 750 mg tablet 750 mg PO DAILY Qty: 5 0RF No Action metoprolol succinate 50 mg tablet extended release 24 hr 50 mg PO DAILY ipratropium-albuterol 0.5 mg-3 mg(2.5 mg base)/3 mL solution for nebulization 3 ml INHALATION 4X/DAY PRN (Reason: SHORTNESS OF BREATH/WHEEZING ) Patient Comments: NOT TAKING OFTEN BECAUSE ITS HARD TO CLEAN aspirin 81 mg tablet,delayed release (DR/EC) 162 mg PO DAILY nitroglycerin 0.4 MG tablet 0.4 mg sublingual Q5M PRN (Reason: CHEST PAIN ) gabapentin 300 MG capsule 300 mg PO QHS albuterol sulfate 1 INHALER inhaler 2 puff inhalation Q4H PRN (Reason: SHORTNESS OF BREATH/WHEEZING) Patient Comments: NOT TAKING OFTEN THEY SHOULD lisinopril 20 MG tablet 20 mg PO DAILY metformin 500 MG tablet extended release 24 hr 1,500 mg PO DAILY hydralazine 10 MG tablet 10 mg PO BID rosuvastatin 20 mg tablet 20 mg PO DAILY pantoprazole 40 mg Tablet,Delayed Release (Dr/Ec) 40 mg PO DAILY 30 Days Qty: 30 0RF clopidogrel 75 mg tablet 75 mg PO DAILY Qty: 90 3RF Primary Care Provider: Mac Olvera Referrals: Mac Olvera MD [Primary Care Provider] - 3-5 Days Print Language: Lao Disposition Disposition: Home, Self Care What to do if you have Problems For any increased pain, shortness of breath, bleeding, nausea or vomiting, chestpain, or any unexpected problems, contact your Primary Care Provider. Call [facility] ([phone]) or report to the closest Emergency Room. Call 911 if necessary. 12/22/24 0152 <Electronically signed by Angel Carter DO> Cosigner Signature (if applicable): CC: Dr. Mac Olvera MD ~ Signed [facility] Work Phone: [phone]) 374-288306-09-2025 Telephone encounter Note* Telephone Encounter - Ro Royla LPN - 12/19/2024 12:50 PM EDT Patient had sent a [employer] message. Did send her a message back to let her know that she needs an appt for evaluation and treatment. [facility]06-09-2025 Telephone encounter Note* Telephone Encounter - Lauryn Baldwin APRN.CNP - 12/19/2024 12:02 PM EDT Needs an appt. We must get a culture to make certain what we are treating. [facility]05-29-2025 Telephone encounter Note* Telephone Encounter - Bo Arauz - 2024 11:30 AM EDT E-script for DULERA) 200-5 mcg [facility]05-29-2025 Miscellaneous Notes* Telephone Encounter - Bo Arauz - 2024 11:30 AM EDT E-script for DULERA) 200-5 mcg documented in this encounterMary [facility] Telephone encounter Note * Telephone Encounter - Leyla Ervin - 11/22/2024 8:49 AM EDT Prescription Refill Information The patient has been identified by name and date of : Yes Caregiver verified no other encounters exist for this prescription request: Yes Caregiver confirmed with patient/requestor that no other refills are due, in the near future, with this provider at this time: Yes The last office visit in the department: 10-27-24 Does the patient have a future office visit with this provider/department: Yes Requested Prescriptions Pending Prescriptions Disp Refills Blood-Glucose Sensor (FREESTYLE [place] 3 SENSOR) chana 1 each 11 Sig: Use as directed. Leyla Kaur November 22, 2024 8:49 AM [facility]05-13-2025 Miscellaneous Notes* Telephone Encounter - Leyla Ervin - 11/22/2024 8:49 AM EDT Prescription Refill Information The patient has been identified by name and date of : Yes Caregiver verified no other encounters exist for this prescription request: Yes Caregiver confirmed with patient/requestor that no other refills are due, in the near future, with this provider at this time: Yes The last office visit in the department: 10-27-24 Does the patient have a future office visit with this provider/department: Yes Requested Prescriptions Pending Prescriptions Disp Refills Blood-Glucose Sensor (FREESTYLE [place] 3 SENSOR) chana 1 each 11 Sig: Use as directed. Leyla Kaur November 22, 2024 8:49 AM documented in this encounterMary [facility]05-[facility] History of Present illness Narrative* Adriana Mathis APRN.SHIFT PRODUCTION ASSOCIATE - 11/16/2024 11:30 AM EDT POST OP Carol Nolan : 1960 HISTORY: Carol Nolan is a 63 year old female who presents for follow up, s/p excision of sebaceaous cyst on face and chest skin lesion with Dr. Jones on 11/10/24. The surgical sites are healing without difficulty. Carol Nolan has no complaints. Pathology was discussed with the patient: FINAL DIAGNOSIS A. Skin, right cheek, excision: - Epidermal inclusion cyst. B. Skin, left chest, excision: - Seborrheic keratosis, focally inflamed. AF/SP/mm/11/14/2024 PAST MEDICAL HISTORY: PAST MEDICAL HISTORY Diagnosis Date Arthritis Chronic back pain Cigarette smoker Colon polyps COPD (chronic obstructive pulmonary disease) (HCC) Coronary artery disease Coronary artery disease involving upper [place] coronary artery of upper [place] heart without angina pectoris Degeneration of intervertebral disc of lumbar region with discogenic back pain Dental caries Diabetes (HCC) Diarrhea Enlarged aorta Essential hypertension Fatty liver ultra sound 2014 Hyperglycemia Hyperlipidemia Obesity Preinfarction syndrome (HCC) S/P CABG x 2 Tobacco abuse Type 2 diabetes mellitus without complication, without long-term current use of insulin (HCC) ACTIVE PROBLEM LIST Htn (Hypertension) Coronary Artery Disease Involving [place] Coronary Artery of [place] Heart Without Angina Pectoris Palpitations Tobacco Use Disorder Gross Hematuria Adrenal Nodule (Hcc) Morbid Obesity (Hcc) Type 2 Diabetes Mellitus Without Complication (Hcc) S/P Cabg X 2 Polypoid Corditis Vocal Cord Polyp Other Hyperlipidemia Carotid Artery Stenosis, Asymptomatic, Bilateral Nsvt (Nonsustained Ventricular Tachycardia) (Hcc) Gastroesophageal Reflux Disease With Esophagitis Without Hemorrhage History of Colonic Polyps Obesity, Class III, BMI >= 40 Pre-Operative Cardiovascular Examination PAST SURGICAL HISTORY Procedure Laterality Date CABG (2) VEIN GRAFTS & ARTERIAL GRAFT(S 10/17/2015 DELIVERY ONLY , low transverse CHOLECYSTECTOMY HX maybe COLONOSCOPY 11/27/2017 COLONOSCOPY FLX DX W/COLLJ SPEC WHEN PFRMD 05/17/2015 Colonoscopy [facility] outpt ESOPHAGOGASTRODUODENOSCOPY TRANSORAL DIAGNOSTIC 05/17/2015 EGD [facility] outpt HEART SURGERY HX JOINT REPLACEMENT HX ORTHOPEDICS SURGERY HX Left RCR PAST SURGICAL HISTORY OF Bilateral knee arthroscopy PAST SURGICAL HISTORY OF lumbar pain injections PAST SURGICAL HISTORY OF Repair tendon/muscle arm-left rotator cuff surgery TONSILLECTOMY AND ADENOIDECTOMY HX TONSILLECTOMY HX TOTAL KNEE REPLACEMENT right TUBAL LIGATION HX MEDICATIONS: Current Outpatient Medications Medication Sig Cyanocobalamin 1,000 mcg TbER Take 1 tablet by mouth once daily. dulaglutide (TRULICITY) 0.75 mg/0.5 mL pen injector Inject 0.75 mg subcutaneously one time a week. Inject dose once per week. Discard Pen After DULoxetine (CYMBALTA) 30 mg capsule Take 1 capsule by mouth once daily. metFORMIN ER (GLUCOPHAGE XR) 500 mg 24 hr tablet Take 3 tablets by mouth daily with breakfast. metoprolol succinate ER (TOPROL XL) 50 mg 24 hr tablet Take 1 tablet by mouth once daily. clopidogrel (PLAVIX) 75 mg tablet Take 1 tablet by mouth once daily. gabapentin (NEURONTIN) 300 mg capsule Take 1 capsule by mouth daily at bedtime for 180 days. mometasone-formoterol (DULERA) 200-5 mcg/actuation inhaler Inhale 1 Puff as instructed two times a day. lisinopril (ZESTRIL) 40 mg tablet Take 1 tablet by mouth once daily. albuterol HFA (PROVENTIL HFA, VENTOLIN HFA) 90 mcg/actuation inhaler Inhale 2 Puffs as instructed every 6 hours as needed for wheezing/shortness of breath. Ibuprofen 200 mg cap Take by mouth every 6 hours as needed for pain. aspirin, enteric coated (ASPIRIN, ENTERIC COATED) 81 mg EC tablet Take 2 tablets by mouth once daily. rosuvastatin (CRESTOR) 40 mg tablet Take 1 tablet by mouth once daily. Blood-Glucose Meter,Continuous (FREESTYLE [place]EN[place] 3 READER) [facility] Use as directed Blood-Glucose Sensor (FREESTYLE [place] 3 SENSOR) chana Use as directed. Blood-Glucose Meter (ONETOUCH ULTRA2 METER) USE DIRECTED blood sugar diagnostic (BLOOD GLUCOSE TEST) test strip Test blood sugar(s) 1 times daily. Dx: Type 2 DM - Uncontrolled E11.65 Insulin: No Lancets lancets Test blood sugar(s) 1 times daily. Dx: Type 2 DM - Uncontrolled E11.65 Insulin: No ipratropium-albuterol (DUONEB) 0.5 mg-3 mg(2.5 mg base)/3 mL nebu Inhale 3 mL as instructed four times daily. nitroglycerin sublingual (NITROQUICK) 0.4 mg SL tablet Dissolve 1 tablet under the tongue as neededfor chest pain. No current facility-administered medications for this visit. ALLERGIES: Penicillins and Nickel PHYSICAL EXAMINATION: GENERAL: Patient is a well appearing, well nourished, and obese, female alert and oriented, NAD. SKIN: Face: healing linear scar. There is no erythema, purulence or fluctuance around the surgical site. Sutures were removed. Steri-strips were placed. Chest: healing linear scar. There is mild erythema, no purulence, fluctuance around the surgical site, or pain. Sutures were removed. ASSESSMENT/PLAN: 1. Sebaceous cyst - ICD9: 706.2, ICD10: L72.3 (primary diagnosis) 2. Neoplasm of skin of chest - ICD9: 239.2, ICD10: D49.2 Return to clinic as needed Adriana Mathis APRN.SHIFT PRODUCTION ASSOCIATE documented in this encounterMary [facility]25 NoteHNO ID: [id number] Author: ADRIANA MATHIS APRN.SHIFT PRODUCTION ASSOCIATE Service: ? Author Type: Nurse Practitioner Type: Progress Notes Filed: 11/16/2024 12:55 Note Text: POST OP Carol Nolan : 1960 HISTORY: aCrol Nolan is a 63 year old female who presents for follow up, s/p excision of sebaceaous cyst on face and chest skin lesion with Dr. Jones on 11/10/24. The surgical sites are healing without difficulty. Carol Nolan has no complaints. Pathology was discussed with the patient: FINAL DIAGNOSIS A. Skin, right cheek, excision: - Epidermal inclusion cyst. B. Skin, left chest, excision: - Seborrheic keratosis, focally inflamed. AF/SP/mm/11/14/2024 PAST MEDICAL HISTORY: PAST MEDICAL HISTORY Diagnosis Date Arthritis Chronic back pain Cigarette smoker Colon polyps COPD (chronic obstructive pulmonary disease) (HCC) Coronary artery disease Coronary artery disease involving upper [place] coronary artery of [place] heart without angina pectoris Degeneration of intervertebral disc of lumbar region with discogenic back pain Dental caries Diabetes (HCC) Diarrhea Enlarged aorta Essential hypertension Fatty liver ultra sound 2014 Hyperglycemia Hyperlipidemia Obesity Preinfarction syndrome (HCC) S/P CABG x 2 Tobacco abuse Type 2 diabetes mellitus without complication, without long-term current use of insulin (HCC) ACTIVE PROBLEM LIST Htn (Hypertension) Coronary Artery Disease Involving [place] Coronary Artery of [place] Heart Without Angina Pectoris Palpitations Tobacco Use Disorder Gross Hematuria Adrenal Nodule (Hcc) Morbid Obesity (Hcc) Type 2 Diabetes Mellitus Without Complication (Hcc) S/P Cabg X 2 Polypoid Corditis Vocal Cord Polyp Other Hyperlipidemia Carotid Artery Stenosis, Asymptomatic, Bilateral Nsvt (Nonsustained Ventricular Tachycardia) (Hcc) Gastroesophageal Reflux Disease With Esophagitis Without Hemorrhage History of Colonic Polyps Obesity, Class III, BMI >= 40 Pre-Operative Cardiovascular Examination PAST SURGICAL HISTORY Procedure Laterality Date CABG (2) VEIN GRAFTS AND ARTERIAL GRAFT(S 10/17/2015 DELIVERY ONLY , low transverse CHOLECYSTECTOMY HX maybe 1989' COLONOSCOPY 11/27/2017 COLONOSCOPY FLX DX W/COLLJ SPEC WHEN PFRMD 05/17/2015 Colonoscopy [facility] outpt ESOPHAGOGASTRODUODENOSCOPY TRANSORAL DIAGNOSTIC 05/17/2015 EGD [facility] outpt HEART SURGERY HX JOINT REPLACEMENT HX ORTHOPEDICS SURGERY HX Left RCR PAST SURGICAL HISTORY OF Bilateral knee arthroscopy PAST SURGICAL HISTORY OF lumbar pain injections PAST SURGICAL HISTORY OF Repair tendon/muscle arm-left rotator cuff surgery TONSILLECTOMY AND ADENOIDECTOMY HX TONSILLECTOMY HX TOTAL KNEE REPLACEMENT right TUBAL LIGATION HX MEDICATIONS: Current Outpatient Medications Medication Sig Cyanocobalamin 1,000 mcg TbER Take 1 tablet by mouth once daily. dulaglutide (TRULICITY) 0.75 mg/0.5 mL pen injector Inject 0.75 mg subcutaneously one time a week. Inject dose once per week. Discard Pen After DULoxetine (CYMBALTA) 30 mg capsule Take 1 capsule by mouth once daily. metFORMIN ER (GLUCOPHAGE XR) 500 mg 24 hr tablet Take 3 tablets by mouth daily with breakfast. metoprolol succinate ER (TOPROL XL) 50 mg 24 hr tablet Take 1 tablet by mouth once daily. clopidogrel (PLAVIX) 75 mg tablet Take 1 tablet by mouth once daily. gabapentin (NEURONTIN) 300 mg capsule Take 1 capsule by mouth daily at bedtime for 180 days. mometasone-formoterol (DULERA) 200-5 mcg/actuation inhaler Inhale 1 Puff as instructed two times a day. lisinopril (ZESTRIL) 40 mg tablet Take 1 tablet by mouth once daily. albuterol HFA (PROVENTIL HFA, VENTOLIN HFA) 90 mcg/actuation inhaler Inhale 2 Puffs as instructed every 6 hours as needed for wheezing/shortness of breath. Ibuprofen 200 mg cap Take by mouth every 6 hours as needed for pain. aspirin, enteric coated (ASPIRIN, ENTERIC COATED) 81 mg EC tablet Take 2 tablets by mouth once daily. rosuvastatin (CRESTOR) 40 mg tablet Take 1 tablet by mouth once daily. Blood-Glucose Meter,Continuous (FREESTYLE [place]EN[place] 3 READER) [facility] Use as directed Blood-Glucose Sensor (FREESTYLE [place] 3 SENSOR) [facility] Use as directed. Blood-Glucose Meter (ONETOUCH ULTRA2 METER) USE DIRECTED blood sugar diagnostic (BLOOD GLUCOSE TEST) test strip Test blood sugar(s) 1 times daily. Dx: Type 2 DM - Uncontrolled E11.65 Insulin: No Lancets lancets Test blood sugar(s) 1 times daily. Dx: Type 2 DM - Uncontrolled E11.65 Insulin: No ipratropium-albuterol (DUONEB) 0.5 mg-3 mg(2.5 mg base)/3 mL nebu Inhale 3 mL as instructed four times daily. nitroglycerin sublingual (NITROQUICK) 0.4 mg SL tablet Dissolve 1 tablet under the tongue as needed for chest pain. No current facility-administered medications for this visit. ALLERGIES: Penicillins and Nickel PHYSICAL EXAMINATION: GENERAL: Patient is a well appearin (more content not included)...[facility]05-01-2025 Instructions* Patient Instructions* Miya Moralez LPN - 11/10/2024 1:32 PM EDT The following instructions are important for you related to your office visit today with the [facility] General Surgeons. Instructions After SKIN EXCISION-SUTURES You can remove the dressing in two days. If the dressing becomes soaked or had significant drainage, the dressing should be changed. If there is minor bleeding from this skin edge, you should hold pressure on the incision until the bleeding stops. If there is continued bleeding, you should contact our office immediately. You do not need to leave a dressing on the wound after two days. If the wound shows signs of redness, inflammation, or purulent drainage, you should contact our office immediately. You should keep the wound dry for the first two days. After that time, you may wash the wound with gentle soap and water. The wound should not be immersed in a pool, bathtub, or even hot tub. We prefer to check the incision and remove the stitches in our office when ready. Right Cheek:Five simple stitches Left Chest: Four stitches Please make an appointment to return to our office in five days for stitch removal. Be sure to use steri-strips after stitch removal. Please do not remove the stitches yourself without approval from our office. If you note any additional difficulties, questions, or concerns, you should contact our office immediately @ [phone] and ask to be transferred to the General Surgery department. documented in this encounter[facility]25 NoteHNO ID: [id number] Author: MIYA MORALEZ LPN Service: ? Author Type: LICENSED NURSE Type: Procedures Filed: 11/12/2024 07:33 Note Text: UNIVERSAL PROTOCOL / SAFETY CHECKLIST Procedure to be Performed: Excision of left chest skin lesion and right face sebaceous cyst Sign In: A Moment of CARE was completed. Appropriate PPE (Personal Protective Equipment) worn by all providers involved with the procedure. Special equipment not required. Patient/Surrogate Stated/Verified: Patient name, Date of , Relevant allergies, and The intended procedure Time Out: Relevant labs, photos, and/or imaging studies are not applicable. Intended patient and procedure match the source document(s) (e.g. consent, HANDP, associated studies [imaging, pathology]) match the intended patient and procedure. Consent obtained and matches the intended procedure. Yes. Correct side/site has been marked and visible. Medications required for this procedure are verified. Fire risk assessed and is not applicable. Implants: are not applicable. Sign Out: Specimens are all correctly labeled and sent. All instruments, equipment, possible retained foreign bodies are accounted for. Yes. The post-procedure plan of care has been communicated to the patient or surrogate. [facility] Procedure note* Miya Moralez LPN - 11/10/2024 1:27 PM EDT UNIVERSAL PROTOCOL / SAFETY CHECKLIST Procedure to be Performed: Excision of left chest skin lesion and right face sebaceous cyst Sign In: A Moment of CARE was completed. Appropriate PPE (Personal Protective Equipment) worn by all providers involved with the procedure. Special equipment not required. Patient/Surrogate Stated/Verified: Patient name, Date of , Relevant allergies, and The intended procedure Time Out: Relevant labs, photos, and/or imaging studies are not applicable. Intended patient and procedure match the source document(s) (e.g. consent, H&P, associated studies [imaging, pathology]) match the intended patient and procedure. Consent obtained and matches the intended procedure. Yes. Correct side/site has been marked and visible. Medications required for this procedure are verified. Fire risk assessed and is not applicable. Implants: are not applicable. Sign Out: Specimens are all correctly labeled and sent. All instruments, equipment, possible retained foreign bodies are accounted for. Yes. The post-procedure plan of care has been communicated to the patient or surrogate. Miya Moralez LPN [facility]05-01-2025 Procedure note* Miya Moralez LPN - 11/10/2024 1:27 PM EDT UNIVERSAL PROTOCOL / SAFETY CHECKLIST Procedure to be Performed: Excision of left chest skin lesion and right face sebaceous cyst Sign In: A Moment of CARE was completed. Appropriate PPE (Personal Protective Equipment) worn by all providers involved with the procedure. Special equipment not required. Patient/Surrogate Stated/Verified: Patient name, Date of , Relevant allergies, and The intended procedure Time Out: Relevant labs, photos, and/or imaging studies are not applicable. Intended patient and procedure match the source document(s) (e.g. consent, H&P, associated studies [imaging, pathology]) match the intended patient and procedure. Consent obtained and matches the intended procedure. Yes. Correct side/site has been marked and visible. Medications required for this procedure are verified. Fire risk assessed and is not applicable. Implants: are not applicable. Sign Out: Specimens are all correctly labeled and sent. All instruments, equipment, possible retained foreign bodies are accounted for. Yes. The post-procedure plan of care has been communicated to the patient or surrogate. Miya Moralez LPN documented in this encounterMary [facility]05-[facility]-2025 NoteHNO ID: [id number] Author: HANNA JONES MD Service: ? Author Type: Physician Type: Progress Notes Filed: 11/12/2024 07:33 Note Text: FOLLOW UP VISIT - SKIN LESION NAME: Carol Koenig Nolan [facility] NO.: [id number] DATE OF SERVICE: 11/10/2024 : 1960 REFERRING PHYSICIAN: Mac Olvera MD Carol is a 63-year-old female presenting with a lesion on the lip and a sebaceous cyst on the right side of the face. Carol reports a lesion on the lip that has been present for a couple of months. She is unsure if it is growing and has not consulted a motorcycle subassembly repairer about it. Additionally, she has a sebaceous cyst on the right side of the face, which started as a small pimple and has darkened over time. She denies any pain associated with these lesions. Carol is currently on Plavix and aspirin 2 - 81 mg daily. She is unsure of the indication for Plavix but mentions it might be related to a previous condition. She took her medication today and is uncertain if she can stop it for a few days. She also reports dental issues and has been advised to have all her teeth removed. She has consulted several dentists, but her insurance, Medicare, does not cover dental procedures. She has not yet seen an oral surgeon. She has held her Plavix. VITALS: There were no vitals taken for this visit. On examination, HEENT: Lesion on lip; sebaceous cyst on right side of face; seborrheic keratosis on left chest, less than 1 cm. PROCEDURE: EXCISION OF SKIN LESION The risks, benefits and anticipated outcomes of the procedure, the risks and benefits of the alternatives to the procedure, and the roles and tasks of the personnel to be involved, were discussed with the patient, and the patient consents to the procedure and agrees to proceed. I verify that I personally obtained the patient's consent. The patient`s skin was prepped and draped in the usual fashion. A combination of Lidocaine and Marcaine was injected into the skin. An elliptical incision was made around the lesion and was removed in its entirety. The specimen measured 1.2 by 1 cm. This was sent to pathology. The skin was then closed with interrupted 4-0 nylon sutures. The patient tolerated the procedure well. PROCEDURE: EXCISION OF SEBACEOUS CYST - FACE The risks, benefits and anticipated outcomes of the procedure, the risks and benefits of the alternatives to the procedure, and the roles and tasks of the personnel to be involved, were discussed with the patient, and the patient consents to the procedure and agrees to proceed. I verify that I personally obtained the patient's consent. The patient`s skin was prepped and draped in the usual fashion. A combination of Lidocaine and Marcaine was injected into the skin. An eliptical incision was made over the sebaceous cyst. The sebaceous cyst was dissected from it's subcutaneous attachments and removed in its entirety. The specimen measured 1.0 by 1.0 cm. This was sent to pathology. The skin was then closed with interrupted 5-0 nylon sutures. The patient tolerated the procedure well. Assessment IMPRESSION: Status post excision of face sebaceous cyst and chest skin lesion PLAN: If the patient notes any problems or signs of wound infections, the patient should contact me immediately. The patient is to follow up in approximately 7 days for suture removal. Diagnoses: (L72.3) Sebaceous cyst (primary encounter diagnosis) Return to Clinic: The patient is instructed to follow-up with my nurse for suture removal in 5 days. Hanna Jones MD UNIVERSAL PROTOCOL / SAFETY CHECKLIST Procedure to be Performed: Excision of chest and face lesion Sign In: A Moment of CARE was completed. Appropriate PPE (Personal Protective Equipment) worn by all providers involved with the procedure. Special equipment not required. Patient/Surrogate Stated/Verified: Patient name, Date of , Relevant allergies, and The intended procedure Time Out: Relevant labs, photos, and/or imaging studies have been reviewed. Intended patient and procedure match the source document(s) (e.g. consent, HANDP, associated studies [imaging, pathology]) match the intended patient and procedure. Consent obtained and matches the intended procedure. Yes. Correct side/site is not applicable. Medications required for this procedure are verified. Fire risk assessed and interventions discussed. Implants: are not applicable. Sign Out: Specimens are all correctly labeled and sent. All instruments, equipment, possible retained foreign bodies are accounted for. Yes. The post-procedure plan of care has been communicated to the patient or surrogate.[facility]05-01-2025 History of Present illness Narrative* Hanna Jones MD - 11/10/2024 12:53 PM EDT FOLLOW UP VISIT - SKIN LESION NAME: Carol Nolan [facility] NO[facility] [id number] DATE OF SERVICE: 11/10/2024 : 1960 REFERRING PHYSICIAN: Mac Olvera MD Carol is a 63-year-old female presenting with a lesion on the lip and a sebaceous cyst on the right side of the face. Carol reports a lesion on the lip that has been present for a couple of months. She is unsure if it is growing and has not consulted a motorcycle subassembly repairer about it. Additionally, she has a sebaceous cyst on the right side of the face, which started as a small pimple and has darkened over time. She denies any pain associated with these lesions. Carol is currently on Plavix and aspirin 2 - 81 mg daily. She is unsure of the indication for Plavix but mentions it might be related to a previous condition. She took her medication today and is uncertain if she can stop it for a few days. She also reports dental issues and has been advised to have all her teeth removed. She has consulted several dentists, but her insurance, Medicare, does not cover dental procedures. She has not yet seen an oral surgeon. She has held her Plavix. VITALS: There were no vitals taken for this visit. On examination, HEENT: Lesion on lip; sebaceous cyst on right side of face; seborrheic keratosis on left chest, less than 1 cm. PROCEDURE: EXCISION OF SKIN LESION The risks, benefits and anticipated outcomes of the procedure, the risks and benefits of the alternatives to the procedure, and the roles and tasks of the personnel to be involved, were discussed with the patient, and the patient consents to the procedure and agrees to proceed. I verify that I personally obtained the patient's consent. The patient`s skin was prepped and draped in the usual fashion. A combination of Lidocaine and Marcaine was injected into the skin. An elliptical incision was made around the lesion and was removed in its entirety. The specimen measured 1.2 by 1 cm. This was sent to pathology. The skin was then closed with interrupted 4-0 nylon sutures. The patient tolerated the procedure well. PROCEDURE: EXCISION OF SEBACEOUS CYST - FACE The risks, benefits and anticipated outcomes of the procedure, the risks and benefits of the alternatives to the procedure, and the roles and tasks of the personnel to be involved, were discussed with the patient, and the patient consents to the procedure and agrees to proceed. I verify that I personally obtained the patient's consent. The patient`s skin was prepped and draped in the usual fashion. A combination of Lidocaine and Marcaine was injected into the skin. An eliptical incision was made over the sebaceous cyst. The sebaceous cyst was dissected from it's subcutaneous attachments and removed in its entirety. The specimen measured 1.0 by 1.0 cm. This was sent to pathology. The skin was then closed with interrupted 5-0 nylon sutures. The patient tolerated the procedure well. Assessment IMPRESSION: Status post excision of face sebaceous cyst and chest skin lesion PLAN: If the patient notes any problems or signs of wound infections, the patient should contact me immediately. The patient is to follow up in approximately 7 days for suture removal. Diagnoses: (L72.3) Sebaceous cyst (primary encounter diagnosis) Return to Clinic: The patient is instructed to follow-up with my nurse for suture removal in 5 days. Hanna Jones MD UNIVERSAL PROTOCOL / SAFETY CHECKLIST Procedure to be Performed: Excision of chest and face lesion Sign In: A Moment of CARE was completed. Appropriate PPE (Personal Protective Equipment) worn by all providers involved with the procedure. Special equipment not required. Patient/Surrogate Stated/Verified: Patient name, Date of , Relevant allergies, and The intended procedure Time Out: Relevant labs, photos, and/or imaging studies have been reviewed. Intended patient and procedure match the source document(s) (e.g. consent, H&P, associated studies [imaging, pathology]) match the intended patient and procedure. Consent obtained and matches the intended procedure. Yes. Correct side/site is not applicable. Medications required for this procedure are verified. Fire risk assessed and interventions discussed. Implants: are not applicable. Sign Out: Specimens are all correctly labeled and sent. All instruments, equipment, possible retained foreign bodies are accounted for. Yes. The post-procedure plan of care has been communicated to the patient or surrogate. documented in [facility] NoteHNO ID: [id number] Author: HANNA JONES MD Service: ? Author Type: Physician Type: Progress Notes Filed: 11/03/2024 06:05 Note Text: HISTORY AND PHYSICAL Carol Nolan 1960 REFERRING PHYSICIAN: Lauryn Baldwin A* CHIEF COMPLAINT: skin lesion HPI: The patient is a 63 year old female. Carol is a 63-year-old female presenting with a lesion on the lip and a sebaceous cyst on the right side of the face. Carol reports a lesion on the lip that has been present for a couple of months. She is unsure if it is growing and has not consulted a motorcycle subassembly repairer about it. Additionally, she has a sebaceous cyst on the right side of the face, which started as a small pimple and has darkened over time. She denies any pain associated with these lesions. Carol is currently on Plavix and aspirin 281 mg daily. She is unsure of the indication for Plavix but mentions it might be related to a previous condition. She took her medication today and is uncertain if she can stop it for a few days. She also reports dental issues and has been advised to have all her teeth removed. She has consulted several dentists, but her insurance, Medicare, does not cover dental procedures. She has not yet seen an oral surgeon. SIGNIFICANT MEDICAL PROBLEMS: PAST MEDICAL HISTORY Diagnosis Date Arthritis Chronic back pain Cigarette smoker Colon polyps COPD (chronic obstructive pulmonary disease) (HCC) Coronary artery disease Coronary artery disease involving upper [place] coronary artery of upper [place] heart without angina pectoris Degeneration of intervertebral disc of lumbar region with discogenic back pain Dental caries Diabetes (HCC) Diarrhea Enlarged aorta Essential hypertension Fatty liver ultra sound 2014 Hyperglycemia Hyperlipidemia Obesity Preinfarction syndrome (HCC) S/P CABG x 2 Tobacco abuse Type 2 diabetes mellitus without complication, without long-term current use of insulin (HCC) OPERATIONS: PAST SURGICAL HISTORY Procedure Laterality Date CABG (2) VEIN GRAFTS AND ARTERIAL GRAFT(S 10/17/2015 DELIVERY ONLY , low transverse CHOLECYSTECTOMY HX maybe 1989' COLONOSCOPY 11/27/2017 COLONOSCOPY FLX DX W/COLLJ SPEC WHEN PFRMD 05/17/2015 Colonoscopy [facility] outpt ESOPHAGOGASTRODUODENOSCOPY TRANSORAL DIAGNOSTIC 05/17/2015 EGD [facility] outpt HEART SURGERY HX JOINT REPLACEMENT HX ORTHOPEDICS SURGERY HX Left RCR PAST SURGICAL HISTORY OF Bilateral knee arthroscopy PAST SURGICAL HISTORY OF lumbar pain injections PAST SURGICAL HISTORY OF Repair tendon/muscle arm-left rotator cuff surgery TONSILLECTOMY AND ADENOIDECTOMY HX TONSILLECTOMY HX TOTAL KNEE REPLACEMENT right TUBAL LIGATION HX CURRENT MEDICATIONS: Current Outpatient Medications Medication Sig Dispense Refill Cyanocobalamin 1,000 mcg TbER Take 1 tablet by mouth once daily. 30 tablet 11 dulaglutide (TRULICITY) 0.75 mg/0.5 mL pen injector Inject 0.75 mg subcutaneously one time a week. Inject dose once per week. Discard Pen After 2 mL 11 doxycycline hyclate (VIBRAMYCIN) 100 mg capsule Take 1 capsule by mouth two times a day for 10 days. 20 capsule 0 DULoxetine (CYMBALTA) 30 mg capsule Take 1 capsule by mouth once daily. 90 capsule 1 metFORMIN ER (GLUCOPHAGE XR) 500 mg 24 hr tablet Take 3 tablets by mouth daily with breakfast. 90 tablet 11 metoprolol succinate ER (TOPROL XL) 50 mg 24 hr tablet Take 1 tablet by mouth once daily. 30 tablet 5 clopidogrel (PLAVIX) 75 mg tablet Take 1 tablet by mouth once daily. 90 tablet 3 gabapentin (NEURONTIN) 300 mg capsule Take 1 capsule by mouth daily at bedtime for 180 days. 30 capsule 5 mometasone-formoterol (DULERA) 200-5 mcg/actuation inhaler Inhale 1 Puff as instructed two times a day. 1 Each 2 lisinopril (ZESTRIL) 40 mg tablet Take 1 tablet by mouth once daily. 90 tablet 3 albuterol HFA (PROVENTIL HFA, VENTOLIN HFA) 90 mcg/actuation inhaler Inhale 2 Puffs as instructed every 6 hours as needed for wheezing/shortness of breath. 1 Each 3 Ibuprofen 200 mg cap Take by mouth every 6 hours as needed for pain. aspirin, enteric coated (ASPIRIN, ENTERIC COATED) 81 mg EC tablet Take 2 tablets by mouth once daily. 180 tablet 3 rosuvastatin (CRESTOR) 40 mg tablet Take 1 tablet by mouth once daily. 90 tablet 3 Blood-Glucose Meter,Continuous (FREESTYLE [place] 3 READER) [facility] [place] Use as directed 1 Each 0 Blood-Glucose Sensor (FREESTYLE [place] 3 SENSOR) chana Use as directed. 1 Each 11 Blood-Glucose Meter (ONETOUCH ULTRA2 METER) USE DIRECTED 1 Each 0 blood sugar diagnostic (BLOOD GLUCOSE TEST) test strip Test blood sugar(s) 1 times daily. Dx: Type 2 DM - Uncontrolled E11.65 Insulin: No 50 Strip 11 Lancets lancets Test blood sugar(s) 1 times daily. Dx: Type 2 DM - Uncontrolled E11.65 Insulin: No 100 Each 11 ipratropium-albuterol (DUONEB) 0.5 mg-3 mg(2.5 mg base)/3 mL nebu Inhale 3 mL as instructed four times daily. 120 Vial 3 (more content not included)...[facility]04-21-2025 Progress note * Result Encounter Note - Lauryn Baldwin APRN.CNP - 10/31/2024 9:56 AM EDT Diabetes is not quite controlled. Watch the sweets and simple carbohydrates such as white flour products, white rice, and potatoes. Choose a whole-grain whenever possible. Please consider [id number] B12, 1000 mcg daily. Your B12 level is low. This will be somethingthat you will likely have to stay on for life. Thyroid level is normal. [facility]04-21-[facility] Miscellaneous Notes* Result Encounter Note - Lauryn Baldwin APRN.CNP - 10/31/2024 9:56 AM EDT Diabetes is not quite controlled. Watch the sweets and simple carbohydrates such as white flour products, white rice, and potatoes. Choose a whole-grain whenever possible. Please consider [id number] B12, 1000 mcg daily. Your B12 level is low. This will be somethingthat you will likely have to stay on for life. Thyroid level is normal. documented in this encounterMary [facility]04-17-2025 Instructions* Patient Instructions* Lauryn Baldwin APRN.CNP - 10/27/2024 2:03 PM EDT 1) Dental clinics: Make an appointment at one of our two convenient locations: [facility] [address] [place] [address] [facility] [address] [place] [address] 2) Consult GEN SURGERY to remove skin lesion left upper chest 3) Check Hemoglobin A1c in lab 4) Doxycyline 100 mg 2 x day for 10 days 5) Follow up in 6 months documented in this encounterMary [facility]04-[facility]-2025 NoteHNO ID: [id number] Author: LAURYN BALDWIN APRN.CNP Service: ? Author Type: Nurse Practitioner Type: Progress Notes Filed: 10/27/2024 14:03 Note Text: This is a 63 year old female who presents today with: Patient presents with: 6 Month Exam HISTORY OF PRESENT ILLNESS: Carol Nolan is a 63 year old female. Patient presents with: 6 Month Exam Heart doctor told her that her teeth need pulled. She wants teeth pulled and extraction. Also has a mole on shoulder that needs checked. PAST MEDICAL HISTORY: PAST MEDICAL HISTORY Diagnosis Date Arthritis Chronic back pain Cigarette smoker Colon polyps COPD (chronic obstructive pulmonary disease) (HCC) Coronary artery disease Diabetes (HCC) Diarrhea Essential hypertension Fatty liver ultra sound 2014 Hyperglycemia Hyperlipidemia Obesity Preinfarction syndrome (HCC) Tobacco abuse PAST SURGICAL HISTORY Procedure Laterality Date CABG (2) VEIN GRAFTS AND ARTERIAL GRAFT(S 10/17/2015 DELIVERY ONLY , low transverse CHOLECYSTECTOMY HX maybe 1989' COLONOSCOPY 11/27/2017 COLONOSCOPY FLX DX W/COLLJ SPEC WHEN PFRMD 05/17/2015 Colonoscopy [facility] outpt ESOPHAGOGASTRODUODENOSCOPY TRANSORAL DIAGNOSTIC 05/17/2015 EGD [facility] outpt HEART SURGERY HX JOINT REPLACEMENT HX ORTHOPEDICS SURGERY HX Left RCR PAST SURGICAL HISTORY OF Bilateral knee arthroscopy PAST SURGICAL HISTORY OF lumbar pain injections PAST SURGICAL HISTORY OF Repair tendon/muscle arm-left rotator cuff surgery TONSILLECTOMY AND ADENOIDECTOMY HX TONSILLECTOMY HX TOTAL KNEE REPLACEMENT right TUBAL LIGATION HX ALLERGIES Penicillins and Nickel MEDICATIONS Current Outpatient Medications Medication Sig DULoxetine (CYMBALTA) 30 mg capsule Take 1 capsule by mouth once daily. metFORMIN ER (GLUCOPHAGE XR) 500 mg 24 hr tablet Take 3 tablets by mouth daily with breakfast. metoprolol succinate ER (TOPROL XL) 50 mg 24 hr tablet Take 1 tablet by mouth once daily. clopidogrel (PLAVIX) 75 mg tablet Take 1 tablet by mouth once daily. gabapentin (NEURONTIN) 300 mg capsule Take 1 capsule by mouth daily at bedtime for 180 days. mometasone-formoterol (DULERA) 200-5 mcg/actuation inhaler Inhale 1 Puff as instructed two times a day. lisinopril (ZESTRIL) 40 mg tablet Take 1 tablet by mouth once daily. albuterol HFA (PROVENTIL HFA, VENTOLIN HFA) 90 mcg/actuation inhaler Inhale 2 Puffs as instructed every 6 hours as needed for wheezing/shortness of breath. Ibuprofen 200 mg cap Take by mouth every 6 hours as needed for pain. aspirin, enteric coated (ASPIRIN, ENTERIC COATED) 81 mg EC tablet Take 2 tablets by mouth once daily. rosuvastatin (CRESTOR) 40 mg tablet Take 1 tablet by mouth once daily. dulaglutide (TRULICITY) 0.75 mg/0.5 mL pen injector Inject 0.75 mg subcutaneously one time a week. Inject dose once per week. Discard Pen After Blood-Glucose Meter,Continuous (FREESTYLE [place]EN[place] 3 READER) misc Use as directed Blood-Glucose Sensor (FREESTYLE [place] 3 SENSOR) chana Use as directed. nitroglycerin sublingual (NITROQUICK) 0.4 mg SL tablet Dissolve 1 tablet under the tongue as needed for chest pain. Blood-Glucose Meter (ONETOUCH ULTRA2 METER) USE DIRECTED blood sugar diagnostic (BLOOD GLUCOSE TEST) test strip Test blood sugar(s) 1 times daily. Dx: Type 2 DM - Uncontrolled E11.65 Insulin: No Lancets lancets Test blood sugar(s) 1 times daily. Dx: Type 2 DM - Uncontrolled E11.65 Insulin: No ipratropium-albuterol (DUONEB) 0.5 mg-3 mg(2.5 mg base)/3 mL nebu Inhale 3 mL as instructed four times daily. No current facility-administered medications for this visit. FAMILY HISTORY Problem Relation Age of Onset other (congestive heart failure) Mother other (CKD) Mother other (renal failure) Mother Ischemic Heart Disease Father Lung Cancer Maternal Grandfather Hypertension Daughter lung Social History Tobacco Use Smoking status: Every Day Current packs/day: 2.00 Average packs/day: 2.0 packs/day for 52.5 years (105.0 ttl pk-yrs) Types: Cigarettes Start date: 04/27/1972 Smokeless tobacco: Former Types: Snuff Tobacco comments: started smoking at age 11;cigarette; Amount: 20-39 cigs/day; 1 1/2 - 2 ppd x 43 years; Vaping Use Vaping status: Never Used Substance Use Topics Alcohol use: Yes Alcohol/week: 8.0 standard drinks of alcohol Types: 8 Cans of Beer (12oz) per week Drug use: Not Currently Types: Marijuana REVIEW OF SYSTEMS GENERAL: No weight loss, + malaise, no fevers/chills HEENT: + frequent whole head headaches, No changes in hearing or vision. NECK: Negative for lumps, goiter, pain and significant neck swelling- lipoma right RESPIRATORY: Always cough, no hemoptysis, + wheezing, + dyspnea or shortness of breath CARDIOVASCULAR: Negative for chest pain, + leg swelling, + orthopnea, no PND, some palpitations with exertion GI: + nausea, no vomiting, both diarrhea/constipation. Occ marie (more content not included)...[facility]04-17-2025 History of Present illness Narrative* Lauryn Baldwin APRN.SHIFT PRODUCTION ASSOCIATE - 10/27/2024 1:52 PM EDT This is a 63 year old female who presents today with: Patient presents with: 6 Month Exam HISTORY OF PRESENT ILLNESS: Carol Nolan is a 63 year old female. Patient presents with: 6 Month Exam Heart doctor told her that her teeth need pulled. She wants teeth pulled and extraction. Also has a mole on shoulder that needs checked. PAST MEDICAL HISTORY: PAST MEDICAL HISTORY Diagnosis Date Arthritis Chronic back pain Cigarette smoker Colon polyps COPD (chronic obstructive pulmonary disease) (HCC) Coronary artery disease Diabetes (HCC) Diarrhea Essential hypertension Fatty liver ultra sound 2014 Hyperglycemia Hyperlipidemia Obesity Preinfarction syndrome (HCC) Tobacco abuse PAST SURGICAL HISTORY Procedure Laterality Date CABG (2) VEIN GRAFTS & ARTERIAL GRAFT(S 10/17/2015 DELIVERY ONLY , low transverse CHOLECYSTECTOMY HX maybe COLONOSCOPY 11/27/2017 COLONOSCOPY FLX DX W/COLLJ SPEC WHEN PFRMD 05/17/2015 Colonoscopy [facility] outpt ESOPHAGOGASTRODUODENOSCOPY TRANSORAL DIAGNOSTIC 05/17/2015 EGD [facility] outpt HEART SURGERY HX JOINT REPLACEMENT HX ORTHOPEDICS SURGERY HX Left RCR PAST SURGICAL HISTORY OF Bilateral knee arthroscopy PAST SURGICAL HISTORY OF lumbar pain injections PAST SURGICAL HISTORY OF Repair tendon/muscle arm-left rotator cuff surgery TONSILLECTOMY AND ADENOIDECTOMY HX TONSILLECTOMY HX TOTAL KNEE REPLACEMENT right TUBAL LIGATION HX ALLERGIES Penicillins and Nickel MEDICATIONS Current Outpatient Medications Medication Sig DULoxetine (CYMBALTA) 30 mg capsule Take 1 capsule by mouth once daily. metFORMIN ER (GLUCOPHAGE XR) 500 mg 24 hr tablet Take 3 tablets by mouth daily with breakfast. metoprolol succinate ER (TOPROL XL) 50 mg 24 hr tablet Take 1 tablet by mouth once daily. clopidogrel (PLAVIX) 75 mg tablet Take 1 tablet by mouth once daily. gabapentin (NEURONTIN) 300 mg capsule Take 1 capsule by mouth daily at bedtime for 180 days. mometasone-formoterol (DULERA) 200-5 mcg/actuation inhaler Inhale 1 Puff as instructed two times a day. lisinopril (ZESTRIL) 40 mg tablet Take 1 tablet by mouth once daily. albuterol HFA (PROVENTIL HFA, VENTOLIN HFA) 90 mcg/actuation inhaler Inhale 2 Puffs as instructed every 6 hours as needed for wheezing/shortness of breath. Ibuprofen 200 mg cap Take by mouth every 6 hours as needed for pain. aspirin, enteric coated (ASPIRIN, ENTERIC COATED) 81 mg EC tablet Take 2 tablets by mouth once daily. rosuvastatin (CRESTOR) 40 mg tablet Take 1 tablet by mouth once daily. dulaglutide (TRULICITY) 0.75 mg/0.5 mL pen injector Inject 0.75 mg subcutaneously one time a week. Inject dose once per week. Discard Pen After Blood-Glucose Meter,Continuous (FREESTYLE [place] 3 READER) [facility] [place] Use as directed Blood-Glucose Sensor (FREESTYLE [place] 3 SENSOR) chana Use as directed. nitroglycerin sublingual (NITROQUICK) 0.4 mg SL tablet Dissolve 1 tablet under the tongue as neededfor chest pain. Blood-Glucose Meter (ONETOUCH ULTRA2 METER) USE DIRECTED blood sugar diagnostic (BLOOD GLUCOSE TEST) test strip Test blood sugar(s) 1 times daily. Dx: Type 2 DM - Uncontrolled E11.65 Insulin: No Lancets lancets Test blood sugar(s) 1 times daily. Dx: Type 2 DM - Uncontrolled E11.65 Insulin: No ipratropium-albuterol (DUONEB) 0.5 mg-3 mg(2.5 mg base)/3 mL nebu Inhale 3 mL as instructed four times daily. No current facility-administered medications for this visit. FAMILY HISTORY Problem Relation Age of Onset other (congestive heart failure) Mother other (CKD) Mother other (renal failure) Mother Ischemic Heart Disease Father Lung Cancer Maternal Grandfather Hypertension Daughter lung Social History Tobacco Use Smoking status: Every Day Current packs/day: 2.00 Average packs/day: 2.0 packs/day for 52.5 years (105.0 ttl pk-yrs) Types: Cigarettes Start date: 04/27/1972 Smokeless tobacco: Former Types: Snuff Tobacco comments: started smoking at age 11;cigarette; Amount: 20-39 cigs/day; 1 1/2 - 2 ppd x 43 years; Vaping Use Vaping status: Never Used Substance Use Topics Alcohol use: Yes Alcohol/week: 8.0 standard drinks of alcohol Types: 8 Cans of Beer (12oz) per week Drug use: Not Currently Types: Marijuana REVIEW OF SYSTEMS GENERAL: No weight loss, + malaise, no fevers/chills HEENT: + frequent whole head headaches, No changes in hearing or vision. NECK: Negative for lumps, goiter, pain and significant neck swelling- lipoma right RESPIRATORY: Always cough, no hemoptysis, + wheezing, + dyspnea or shortness of breath CARDIOVASCULAR: Negative for chest pain, + leg swelling, + orthopnea, no PND, some palpitations with exertion GI: + nausea, no vomiting, both diarrhea/constipation. Occ hematochezia/melena. No heartburn or reflux symptoms. Umbilical hernia : No history of dysuria, no frequency, + incontinence MUSCULOSKELETAL: + joint pain on back with pain down both legs to past knees, fingers going numb SKIN: Negative for lesions, rash, and itching ENDOCRINE: Negative for cold or heat intolerance, polyuria, polydipsia and goiter NEURO: No history of headaches, syncope, paralysis, seizures or tremors MOOD: Negative for depression, anxiety, or suicidal ideation. Helpless with back pain and teeth Has CGM- right now. Currently 139. Certain things she eats makes blood sugar. EXAM: BP 137/85 Pulse 78 Wt 133.8 kg (295 lb) SpO2 95% BMI 48.85 kg/m PHYSICAL EXAM: Physical Exam Vitals reviewed. Constitutional: Appearance: Normal appearance. He is obese. HENT: Head: Normocephalic. Cardiovascular: Rate and Rhythm: Normal rate and regular rhythm. Pulses: Normal pulses. Heart sounds: Normal heart sounds. Pulmonary: Effort: Pulmonary effort is normal. Breath sounds: Normal breath sounds. Abdominal: General: Bowel sounds are normal. Palpations: Abdomen is soft. Tenderness: There is no abdominal tenderness. There is no guarding or rebound. Musculoskeletal: General: Normal range of motion. Right lower leg: No edema. Left lower leg: Edema present. Comments: Left leg swells, moves all ext. Without difficulty Skin: General: Skin is warm and dry. Comments: Left upper chest with a skin neoplasm irreg shaped- 2 mm X 3.5 mm that varies in color and borders irreg Neurological: Mental Status: He is alert. LABS: Hemoglobin A1c, TSH, B12 ASSESSMENT/PLAN: 1. S/P CABG x 2 - ICD9: V45.81, ICD10: Z95.1 (primary diagnosis) Follows with cardiology 2. Type 2 diabetes mellitus without complication, without long-term current use of insulin (HCC) - ICD9: 250.00, ICD10: E11.9 - Control undetermined, due for labs - Continue current medications - DULAGLUTIDE 0.75 MG/0.5 ML SUBCUTANEOUS PEN INJECTOR - THYROID STIMULATING HORMONE - HEMOGLOBIN A1C - VITAMIN B12 - MAGNESIUM 3. Tobacco use disorder - ICD9: 305.1, ICD10: F17.200 - Cessation encouraged. - Physiologic and physical aspects of tobacco addiction as well as strategies for quitting were discussed. - Counseling was given focusing on the harmful effects of this addiction especially given the patient's medical condition(s) which will be worsened because of the chemicals in tobacco. - DOXYCYCLINE HYCLATE 100 MG CAPSULE 4. Coronary artery disease involving upper [place] coronary artery of upper [place] heart without angina pectoris- ICD9: 414.01, ICD10: I25.10 Follows with cardiolog - VITAMIN B12 - MAGNESIUM 5. Essential hypertension - ICD9: 401.9, ICD10: I10 - Controlled - Recommend home blood pressure monitoring, to bring results to next visit - Encouraged sodium restriction, DASH or Mediterranean diet - Recommend regular aerobic exercise - VITAMIN B12 - MAGNESIUM 6. Enlarged aorta - ICD9: 447.8, ICD10: I77.89 CT december 08 7. Dental caries - ICD9: 521.00, ICD10: K02.9 - Doxycycline given - Numbers for dental clinic given 8. Degeneration of intervertebral disc of lumbar region with discogenic back pain - ICD9: 722.52, ICD10: M51.360 ongoing - THYROID STIMULATING HORMONE - HEMOGLOBIN A1C 9. Neoplasm of skin - ICD9: 239.2, ICD10: D49.2 Refer to gen surgery since irreg and growing Discussed treatment plan and patient voices understanding. Patient's questions answered appropriately. Medications and potential side effects were discussed and patient voices understanding. Return to the office as scheduled or as needed for worsening/no improvement. Lauryn Baldwin APRN.ABIGAIL documented in this encounter[facility] Telephone encounter Note * Telephone Encounter - Leyla Ervin - 10/25/2024 8:52 AM EDT Prescription Refill Information The patient has been identified by name and date of : Yes Caregiver verified no other encounters exist for this prescription request: Yes Caregiver confirmed with patient/requestor that no other refills are due, in the near future, with this provider at this time: Yes The last office visit in the department: 04-21-24 Does the patient have a future office visit with this provider/department: Yes Requested Prescriptions Pending Prescriptions Disp Refills DULoxetine (CYMBALTA) 30 mg capsule 90 capsule 1 Sig: Take 1 capsule by mouth once daily. Leyla Kaur October 25, 2024 8:53 AM [facility]04-15-[facility] Miscellaneous Notes* Telephone Encounter - Leyla Ervin - 10/25/2024 8:52 AM EDT Prescription Refill Information The patient has been identified by name and date of : Yes Caregiver verified no other encounters exist for this prescription request: Yes Caregiver confirmed with patient/requestor that no other refills are due, in the near future, with this provider at this time: Yes The last office visit in the department: 04-21-24 Does the patient have a future office visit with this provider/department: Yes Requested Prescriptions Pending Prescriptions Disp Refills DULoxetine (CYMBALTA) 30 mg capsule 90 capsule 1 Sig: Take 1 capsule by mouth once daily. Leyla Kaur October 25, 2024 8:53 AM documented in this encounterMary [facility]04-07-[facility]25 History of Present illness Narrative* Rc Delacruz MD - 10/17/2024 2:20 PM EDT Images from the original note were not included. [facility] SE[facility]IONAL CARDIOLOGY Cardiology ([facility]) [address] [facility] [address] OUTPATIENT VISIT DATE 10/17/2024 PRIMARY CARE PHYSICIAN: Mac Olvera [address] [place] [address] HISTORY OF PRESENT ILLNESS: Ms. Nolan is a 63 year old morbidly obese woman with a history of coronary artery disease and prior coronary bypass grafting in 2016 subsequent coronary intervention of the right coronary artery in February 2019, hypertension, diabetes (veg-rkpmpvg-qjwdautdl), dyslipidemia, and ongoing smoking of 2 packs of cigarettes a day who presents for routine follow-up. Patient has been having difficulty due to poor dentition. She has been trying to find a dentist who will remove her teeth. She was told by a oral surgeon that she is developing child pulm complications. She has not had symptoms of chestpain or pressure. She has shortness of breath on exertion which is unchanged from prior. She has not had symptoms concerning for congestive heart failure including PND, orthopnea, or lower extremity edema. PAST MEDICAL HISTORY Diagnosis Date Arthritis Chronic back pain Cigarette smoker Colon polyps COPD (chronic obstructive pulmonary disease) (HCC) Coronary artery disease Diabetes (HCC) Diarrhea Essential hypertension Fatty liver ultra sound 2014 Hyperglycemia Hyperlipidemia Obesity Preinfarction syndrome (HCC) Tobacco abuse PAST SURGICAL HISTORY Procedure Laterality Date CABG (2) VEIN GRAFTS & ARTERIAL GRAFT(S 10/17/2015 DELIVERY ONLY , low transverse CHOLECYSTECTOMY HX maybe 1989' COLONOSCOPY 11/27/2017 COLONOSCOPY FLX DX W/COLLJ SPEC WHEN PFRMD 05/17/2015 Colonoscopy [facility] outpt ESOPHAGOGASTRODUODENOSCOPY TRANSORAL DIAGNOSTIC 05/17/2015 EGD [facility] outpt HEART SURGERY HX JOINT REPLACEMENT HX ORTHOPEDICS SURGERY HX Left RCR PAST SURGICAL HISTORY OF Bilateral knee arthroscopy PAST SURGICAL HISTORY OF lumbar pain injections PAST SURGICAL HISTORY OF Repair tendon/muscle arm-left rotator cuff surgery TONSILLECTOMY AND ADENOIDECTOMY HX TONSILLECTOMY HX TOTAL KNEE REPLACEMENT right TUBAL LIGATION HX SOCIAL HISTORY Social History Tobacco Use Smoking status: Every Day Current packs/day: 2.00 Average packs/day: 2.0 packs/day for 52.5 years (104.9 ttl pk-yrs) Types: Cigarettes Start date: 04/27/1972 Smokeless tobacco: Former Types: Snuff Tobacco comments: started smoking at age 11;cigarette; Amount: 20-39 cigs/day; 1 1/2 - 2 ppd x 43 years; Vaping Use Vaping status: Never Used Substance Use Topics Alcohol use: Yes Alcohol/week: 8.0 standard drinks of alcohol Types: 8 Cans of Beer (12oz) per week Drug use: Not Currently Types: Marijuana FAMILY HISTORY Problem Relation Age of Onset other (congestive heart failure) Mother other (CKD) Mother other (renal failure) Mother Ischemic Heart Disease Father Lung Cancer Maternal Grandfather Hypertension Daughter lung ALLERGIES: ALLERGIES Allergen Reactions Penicillins Hives, Swelling Nickel Unknown Metal jewelry MEDICATIONS: metFORMIN ER (GLUCOPHAGE XR) 500 mg 24 hr tablet Take 3 tablets by mouth daily with breakfast. metoprolol succinate ER (TOPROL XL) 50 mg 24 hr tablet Take 1 tablet by mouth once daily. clopidogrel (PLAVIX) 75 mg tablet Take 1 tablet by mouth once daily. gabapentin (NEURONTIN) 300 mg capsule Take 1 capsule by mouth daily at bedtime for 180 days. mometasone-formoterol (DULERA) 200-5 mcg/actuation inhaler Inhale 1 Puff as instructed two times a day. DULoxetine (CYMBALTA) 30 mg capsule Take 1 capsule by mouth once daily. lisinopril (ZESTRIL) 40 mg tablet Take 1 tablet by mouth once daily. albuterol HFA (PROVENTIL HFA, VENTOLIN HFA) 90 mcg/actuation inhaler Inhale 2 Puffs as instructed every 6 hours as needed for wheezing/shortness of breath. Ibuprofen 200 mg cap Take by mouth every 6 hours as needed for pain. aspirin, enteric coated (ASPIRIN, ENTERIC COATED) 81 mg EC tablet Take 2 tablets by mouth once daily. rosuvastatin (CRESTOR) 40 mg tablet Take 1 tablet by mouth once daily. dulaglutide (TRULICITY) 0.75 mg/0.5 mL pen injector Inject 0.75 mg subcutaneously one time a week. Inject dose once per week. Discard Pen After Blood-Glucose Meter,Continuous (FREESTYLE GARDENIA 3 READER) [facility] [place] Use as directed Blood-Glucose Sensor (FREESTYLE GARDENIA 3 SENSOR) [facility] Use as directed. nitroglycerin sublingual (NITROQUICK) 0.4 mg SL tablet Dissolve 1 tablet under the tongue as neededfor chest pain. Blood-Glucose Meter (ONETOUCH ULTRA2 METER) USE DIRECTED blood sugar diagnostic (BLOOD GLUCOSE TEST) test strip Test blood sugar(s) 1 times daily. Dx: Type 2 DM - Uncontrolled E11.65 Insulin: No Lancets lancets Test blood sugar(s) 1 times daily. Dx: Type 2 DM - Uncontrolled E11.65 Insulin: No ipratropium-albuterol (DUONEB) 0.5 mg-3 mg(2.5 mg base)/3 mL nebu Inhale 3 mL as instructed four times daily. REVIEW OF SYSTEMS: Review of Systems Constitutional: Positive for malaise/fatigue. Negative for chills, fever and weight loss. HENT: Negative for hearing loss and sore throat. Eyes: Negative for blurred vision and double vision. Respiratory: Positive for shortness of breath. Negative for cough, sputum production and wheezing. Cardiovascular: Positive for chest pain, palpitations and leg swelling. Negative for orthopnea, claudication and PND. Gastrointestinal: Negative. Genitourinary: Negative for dysuria, frequency, hematuria and urgency. Musculoskeletal: Positive for back pain and myalgias. Skin: Negative. Neurological: Negative for dizziness, seizures, loss of consciousness, weakness and headaches. Endo/Heme/Allergies: Negative for environmental allergies. Does not bruise/bleed easily. Psychiatric/Behavioral: Negative for depression. PHYSICAL EXAMINATION: BP 148/89 Pulse 82 Wt 133.4 kg (294 lb) SpO2 94% BMI 48.68 kg/m General: Pleasant morbidly obese woman sitting appears comfortable in no apparent distress. She is alert and oriented x3 HEENT: Carotid upstrokes are brisk bilateral without bruits. No appreciable JVD. Thyroid is palpable and not enlarged. Pulmonary: Lungs are clear no rales, wheezes, rhonchi Cardiovascular: Normal S1-S2 with tachycardia. Otherwise normal rhythm. No murmurs, rubs, or gallops appreciate Extremities: Warm, well-perfused, no lower extremity edema. 2+ distal pulses. CARDIOVASCULAR MEDICINE TESTING: ECG in the office 06/30/2022: Normal sinus rhythm with normal axis. Nonspecific ST-T wave changes noted in leads V1 to V3 ECG in the office 12/17/2020: Normal sinus rhythm with normal axis and intervals. Nonspecific T wave changes noted in leads V1 and V2. Cardiac catheterization [facility] 10/05/2019: Normal left ventricular systolic function LVEF 65% Elevated left ventricular EDP Single-vessel coronary artery disease of the LAD, proximal 75% stenosis LCx: Nonobstructive disease, OM1 proximal mild luminal irregularities Widely patent proximal and mid RCA stents, distal RCA transition to PDA with less than 50% stenosis ORTIZ-LAD not reimaged as it was patent and a 2019 Regadenoson Cardiolite Stress 05/07/2023: 1. There were no cardiac dysrhythmias 2. Rest and stress SPECT Cardiolite nuclear imaging demonstrate relative uniform tracer uptake and myocardial perfusion appearing within normal limits 3. The gated Cardiolite study reports an EF of 75% Echocardiogram 01/07/2021 - Technically difficult exam due to suboptimal positioning and body habitus. - Exam indication: CAD - The left ventricle is small. Left ventricular systolic function is normal. EF = 70 5% (2D 4-ch.) Grade I left ventricular diastolic dysfunction. - The right ventricle is normal in size. Right ventricular systolic function is normal. - There are no significant valvular abnormalities. - The patient has not had a prior CC echocardiographic exam for comparison. Zio Monitor 01/22/2021 Patient had a min HR of 50 bpm, max HR of 207 bpm, and avg HR of 76 bpm. Predominant underlying rhythm was Sinus Rhythm. - 1 run of Ventricular Tachycardia occurred lasting 11 beats with a max rate of 207 bpm (avg 174 bpm). - 3 Supraventricular Tachycardia runs occurred, the run with the fastest interval beats with a max rate of 135 bpm (avg 108 bpm); the run with the fastest interval was also the longest. Some episodes of Supraventricular Tachycardia may be possible AtrialTachycardia with variable block. - Isolated SVEs were rare (<1.0%), SVE Couplets were rare (<1.0%), and SVE Triplets were rare(<1.0%). Isolated VEs were rare (<1.0%), VE Couplets were rare (<1.0%), and no VE Tripletswere present Carotid Ultrasound 12/13/2021: IMPRESSION RIGHT SIDE Common carotid artery: Plaque visualized without evidence of hemodynamically significant stenosis. Internal carotid artery: 40-59% stenosis. Vertebral artery: Patent and antegrade flow noted. Subclavian artery: Plaque visualized without evidence of hemodynamically significant stenosis. LEFT SIDE Internal carotid artery: 20-39% stenosis. Vertebral artery: Patent and antegrade flow noted. IMPRESSION: Ms. Nolan is a 63 year old woman with known coronary artery disease prior coronary bypass grafting in 2016 with a ORTIZ to the LAD and SVG to RCA. She underwent cardiac catheterization in February 2019. At that time, she was found to have an occluded SVG graft to the RCA. The [place] right coronary artery was treated with drug-eluting stent placement. Due to ongoing complaints of chest pain and shortness of breath she underwent repeat cardiac catheterization in September 2019. The latter as noted above demonstrating patent RCA stents and otherwise unchanged from prior study. She is also treated for diabetes, hypertension, and dyslipidemia. Patient presents the office for routine follow-up PLAN AND RECOMMENDATIONS: 1. Coronary artery disease involving upper [place] coronary artery of upper [place] heart without angina pectoris- ICD9: 414.01, ICD10: I25.10 (primary diagnosis) Patient is not having overt anginal symptoms. We discussed her dental issues in detail. She can safely be off aspirin and Plavix for planned procedure. 2. NSVT (nonsustained ventricular tachycardia) (HCC) - ICD9: 427.1, ICD10: I47.29 3. Primary hypertension - ICD9: 401.9, ICD10: I10 Elevated during the office visit. Asked her to start checking her blood pressure at home. We discussed lifestyle modification including increase activities and dietary modification for overall cardiovascular benefits and further improvements in blood pressure management. 4. Other hyperlipidemia - ICD9: 272.4, ICD10: E78.49 Maintained on Crestor 40 mg daily. She had fasting blood work in April. However she notes, that she was off her medications due to cost. 5. Palpitations - ICD9: 785.1, ICD10: R00.2 6. Carotid artery stenosis, asymptomatic, bilateral - ICD9: 433.10, 433.30, ICD10: I65.23 Repeat carotid ultrasound prior to next office visit - US CAROTID ARTERIES [facility] 7. Morbid obesity (HCC) - ICD9: 278.01, ICD10: E66.01 Rc Delacruz MD documented in this encounterMary [facility]04-07-[facility]25 NoteHNO ID: [id number] Author: RC DELACRUZ MD Service: ? Author Type: Physician Type: Progress Notes Filed: 10/17/2024 14:27 Note Text: [facility] SECTION OF REGIONAL CARDIOLOGY Cardiology ([facility]) [address] [facility] [address] OUTPATIENT VISIT DATE 10/17/2024 PRIMARY CARE PHYSICIAN: Mac Olvera [address] [place] [address] HISTORY OF PRESENT ILLNESS: Ms. Nolan is a 63 year old morbidly obese woman with a history of coronary artery disease and prior coronary bypass grafting in 2015 subsequent coronary intervention of the right coronary artery in February 2019, hypertension, diabetes (xih-zyadzxv-dbptkwgfc), dyslipidemia, and ongoing smoking of 2 packs of cigarettes a day who presents for routine follow-up. Patient has been having difficulty due to poor dentition. She has been trying to find a dentist who will remove her teeth. She was told by a oral surgeon that she is developing child pulm complications. She has not had symptoms of chest pain or pressure. She has shortness of breath on exertion which is unchanged from prior. She has not had symptoms concerning for congestive heart failure including PND, orthopnea, or lower extremity edema. PAST MEDICAL HISTORY Diagnosis Date Arthritis Chronic back pain Cigarette smoker Colon polyps COPD (chronic obstructive pulmonary disease) (HCC) Coronary artery disease Diabetes (HCC) Diarrhea Essential hypertension Fatty liver ultra sound 2014 Hyperglycemia Hyperlipidemia Obesity Preinfarction syndrome (HCC) Tobacco abuse PAST SURGICAL HISTORY Procedure Laterality Date CABG (2) VEIN GRAFTS AND ARTERIAL GRAFT(S 10/17/2015 DELIVERY ONLY , low transverse CHOLECYSTECTOMY HX maybe COLONOSCOPY 11/27/2017 COLONOSCOPY FLX DX W/COLLJ SPEC WHEN PFRMD 05/17/2015 Colonoscopy [facility] outpt ESOPHAGOGASTRODUODENOSCOPY TRANSORAL DIAGNOSTIC 05/17/2015 EGD [facility] outpt HEART SURGERY HX JOINT REPLACEMENT HX ORTHOPEDICS SURGERY HX Left RCR PAST SURGICAL HISTORY OF Bilateral knee arthroscopy PAST SURGICAL HISTORY OF lumbar pain injections PAST SURGICAL HISTORY OF Repair tendon/muscle arm-left rotator cuff surgery TONSILLECTOMY AND ADENOIDECTOMY HX TONSILLECTOMY HX TOTAL KNEE REPLACEMENT right TUBAL LIGATION HX SOCIAL HISTORY Social History Tobacco Use Smoking status: Every Day Current packs/day: 2.00 Average packs/day: 2.0 packs/day for 52.5 years (104.9 ttl pk-yrs) Types: Cigarettes Start date: 04/27/1972 Smokeless tobacco: Former Types: Snuff Tobacco comments: started smoking at age 11;cigarette; Amount: 20-39 cigs/day; 1 1/2 - 2 ppd x 43 years; Vaping Use Vaping status: Never Used Substance Use Topics Alcohol use: Yes Alcohol/week: 8.0 standard drinks of alcohol Types: 8 Cans of Beer (12oz) per week Drug use: Not Currently Types: Marijuana FAMILY HISTORY Problem Relation Age of Onset other (congestive heart failure) Mother other (CKD) Mother other (renal failure) Mother Ischemic Heart Disease Father Lung Cancer Maternal Grandfather Hypertension Daughter lung ALLERGIES: ALLERGIES Allergen Reactions Penicillins Hives, Swelling Nickel Unknown Metal jewelry MEDICATIONS: metFORMIN ER (GLUCOPHAGE XR) 500 mg 24 hr tablet Take 3 tablets by mouth daily with breakfast. metoprolol succinate ER (TOPROL XL) 50 mg 24 hr tablet Take 1 tablet by mouth once daily. clopidogrel (PLAVIX) 75 mg tablet Take 1 tablet by mouth once daily. gabapentin (NEURONTIN) 300 mg capsule Take 1 capsule by mouth daily at bedtime for 180 days. mometasone-formoterol (DULERA) 200-5 mcg/actuation inhaler Inhale 1 Puff as instructed two times a day. DULoxetine (CYMBALTA) 30 mg capsule Take 1 capsule by mouth once daily. lisinopril (ZESTRIL) 40 mg tablet Take 1 tablet by mouth once daily. albuterol HFA (PROVENTIL HFA, VENTOLIN HFA) 90 mcg/actuation inhaler Inhale 2 Puffs as instructed every 6 hours as needed for wheezing/shortness of breath. Ibuprofen 200 mg cap Take by mouth every 6 hours as needed for pain. aspirin, enteric coated (ASPIRIN, ENTERIC COATED) 81 mg EC tablet Take 2 tablets by mouth once daily. rosuvastatin (CRESTOR) 40 mg tablet Take 1 tablet by mouth once daily. dulaglutide (TRULICITY) 0.75 mg/0.5 mL pen injector Inject 0.75 mg subcutaneously one time a week. Inject dose once per week. Discard Pen After Blood-Glucose Meter,Continuous (FREESTYLE GARDENIA 3 READER) [facility] Use as directed Blood-Glucose Sensor (FREESTYLE GARDENIA 3 SENSOR) [facility] Use as directed. nitroglycerin sublingual (NITROQUICK) 0.4 mg SL tablet Dissolve 1 tablet under the tongue as needed for chest pain. Blood-Glucose Meter (ONETOUCH ULTRA2 METER) USE DIRECTED blood sugar diagnostic (BLOOD GLUCOSE TEST) test strip Test blood sugar(s) 1 times daily. Dx: Type 2 DM - Unco (more content not included)...[facility]04-07-2025 Instructions* Patient Instructions* Rc Delacruz MD - 10/17/2024 2:09 PM EDT We will repeat an ultrasound of the carotids documented in this encounterMary [facility]04-[facility] NotePatient Outreach (FAMPWS) CAROL NOLAN ([id number]) 1960 F Date Time Provider Department 10/11/24 MAC OLVERA During your visit today, we recorded the following information about you: Allergies As of Date: 10/11/2024 Noted Allergy Reaction PENICILLINS 08/01/2014 4 - Hives 7 - Swelling NICKEL 05/03/2015 16 - Unknown Comments: Metal jewelry Date Reviewed: 04/21/2024 Reviewed by: Ena Villegas MA - Fully Assessed Visit Diagnosis:Encounter for screening mammogram for breast cancer [Z12.31] Order(s):[facility] SCREENING [facility] [[id number]] Order #: [id number] FUTURE Prescriptions as of 11/11/2024 - Cyanocobalamin 1,000 mcg TbER Take 1 tablet by mouth once daily. - dulaglutide (TRULICITY) 0.75 mg/0.5 mL pen injector Inject 0.75 mg subcutaneously one time a week. Inject dose once per week. Discard Pen After - DULoxetine (CYMBALTA) 30 mg capsule Take 1 capsule by mouth once daily. - metFORMIN ER (GLUCOPHAGE XR) 500 mg 24 hr tablet Take 3 tablets by mouth daily with breakfast. - metoprolol succinate ER (TOPROL XL) 50 mg 24 hr tablet Take 1 tablet by mouth once daily. - clopidogrel (PLAVIX) 75 mg tablet Take 1 tablet by mouth once daily. - gabapentin (NEURONTIN) 300 mg capsule Take 1 capsule by mouth daily at bedtime for 180 days. - mometasone-formoterol (DULERA) 200-5 mcg/actuation inhaler Inhale 1 Puff as instructed two times a day. - lisinopril (ZESTRIL) 40 mg tablet Take 1 tablet by mouth once daily. - albuterol HFA (PROVENTIL HFA, VENTOLIN HFA) 90 mcg/actuation inhaler Inhale 2 Puffs as instructed every 6 hours as needed for wheezing/shortness of breath. - Ibuprofen 200 mg cap Take by mouth every 6 hours as needed for pain. - aspirin, enteric coated (ASPIRIN, ENTERIC COATED) 81 mg EC tablet Take 2 tablets by mouth once daily. - rosuvastatin (CRESTOR) 40 mg tablet Take 1 tablet by mouth once daily. - Blood-Glucose Meter,Continuous (FREESTYLE GARDENIA 3 READER) misc Use as directed - Blood-Glucose Sensor (FREESTYLE GARDENIA 3 SENSOR) [facility] Use as directed. - nitroglycerin sublingual (NITROQUICK) 0.4 mg SL tablet Dissolve 1 tablet under the tongue as needed for chest pain. - Blood-Glucose Meter (FrontierreUCH ULTRA2 METER) USE DIRECTED - blood sugar diagnostic (BLOOD GLUCOSE TEST) test strip Test blood sugar(s) 1 times daily. Dx: Type 2 DM - Uncontrolled E11.65 Insulin: No - Lancets lancets Test blood sugar(s) 1 times daily. Dx: Type 2 DM - Uncontrolled E11.65 Insulin: No - ipratropium-albuterol (DUONEB) 0.5 mg-3 mg(2.5 mg base)/3 mL nebu Inhale 3 mL as instructed four times daily. Problem List As Of Date 10/11/2024 Noted Resolved Chest pain [R07.9] 08/01/2014 05/31/2015 Shortness of breath [R06.02] 08/01/2014 08/18/2023 Abdominal pain [R10.9] 08/01/2014 12/01/2014 HTN (hypertension) [I10] 08/01/2014 Fever [R50.9] 08/03/2014 12/01/2014 Coronary artery disease involving upper [place] lino*08/31/2014 Palpitations [R00.2] 12/19/2014 Obesity [E66.9] 12/19/2014 01/19/2017 Diarrhea [R19.7] 01/19/2017 Skin tag [L91.8] 04/27/2015 01/19/2017 Tobacco abuse [Z72.0] 05/03/2015 01/19/2017 Tobacco use disorder [F17.200] 05/31/2015 Hyperglycemia [R73.9] 11/08/2015 Gross hematuria [R31.0] 09/18/2015 Adrenal nodule (HCC) [E27.9] 09/18/2015 Morbid obesity (HCC) [E66.01] 09/18/2015 Type 2 diabetes mellitus without complication (*11/08/2015 S/P CABG x 2 [Z95.1] 04/25/2016 Essential hypertension [I10] 04/25/2016 07/14/2018 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] 02/05/2018 Hoarseness [R49.0] 02/05/2018 08/18/2023 Obesity, Class III, BMI >= 40 [E66.813] 04/05/2018 08/18/2023 Other hyperlipidemia [E78.49] 12/17/2020 Carotid artery stenosis, asymptomatic, bilatera*12/02/2021 NSVT (nonsustained ventricular tachycardia) (HC*12/02/2021 Gastroesophageal reflux disease with esophagiti*11/28/2022 History of colonic polyps [Z86.0100] 11/28/2022 Obesity, Class III, BMI >= 40 [E66.813] 01/25/2024 Pre-operative cardiovascular examination [Z01.8*01/25/2024 Encounter Status:Closed by JORDYN GERMAIN on 11/11/24[facility] 09-28-2024 Telephone encounter Note* Telephone Encounter - Rhonda Fereman - 09/28/2024 8:43 AM EDT Prescription Refill Information The patient has been identified by name and date of : Yes Caregiver verified no other encounters exist for this prescription request: Yes Caregiver confirmed with patient/requestor that no other refills are due, in the near future, with this provider at this time: Yes The last office visit in the department: 04/21/24 Does the patient have a future office visit with this provider/department: Yes 10/27/24 Requested Prescriptions Pending Prescriptions Disp Refills metFORMIN ER (GLUCOPHAGE XR) 500 mg 24 hr tablet 90 tablet 11 Sig: Take 3 tablets by mouth daily with breakfast. metoprolol succinate ER (TOPROL XL) 50 mg 24 hr tablet 30 tablet 5 Sig: Take 1 tablet by mouth once daily. Rhonda Freeman September 28, 2024 8:43 AM [facility]03-19-[facility] Miscellaneous Notes* Telephone Encounter - Rhonda Freeman - 09/28/2024 8:43 AM EDT Prescription Refill Information The patient has been identified by name and date of : Yes Caregiver verified no other encounters exist for this prescription request: Yes Caregiver confirmed with patient/requestor that no other refills are due, in the near future, with this provider at this time: Yes The last office visit in the department: 04/21/24 Does the patient have a future office visit with this provider/department: Yes 10/27/24 Requested Prescriptions Pending Prescriptions Disp Refills metFORMIN ER (GLUCOPHAGE XR) 500 mg 24 hr tablet 90 tablet 11 Sig: Take 3 tablets by mouth daily with breakfast. metoprolol succinate ER (TOPROL XL) 50 mg 24 hr tablet 30 tablet 5 Sig: Take 1 tablet by mouth once daily. Rhonda Freeman September 28, 2024 8:43 AM documented in this encounter[facility] Telephone encounter Note * Telephone Encounter - Nancy Huffman RN - 07/25/2024 10:05 AM EST Pharmacy requesting prescription. The patient has been identified by name and date of : Yes Caregiver verified no other encounters exist for this prescription request: Yes Caregiver confirmed with patient/requestor that no other refills are due, in the near future, with this provider at this time: Yes The last office visit in the department: 04/21/2024 Does the patient have a future office visit with this provider/department: Yes 10/27/2024 Requested Prescriptions Pending Prescriptions Disp Refills clopidogrel (PLAVIX) 75 mg tablet 90 tablet 3 Sig: Take 1 tablet by mouth once daily. Nancy Huffman RN July 25, 2024 10:06 AM [facility]01-13[facility] Miscellaneous Notes* Telephone Encounter - Nancy Huffman RN - 07/25/2024 10:05 AM EST Pharmacy requesting prescription. The patient has been identified by name and date of : Yes Caregiver verified no other encounters exist for this prescription request: Yes Caregiver confirmed with patient/requestor that no other refills are due, in the near future, with this provider at this time: Yes The last office visit in the department: 04/21/2024 Does the patient have a future office visit with this provider/department: Yes 10/27/2024 Requested Prescriptions Pending Prescriptions Disp Refills clopidogrel (PLAVIX) 75 mg tablet 90 tablet 3 Sig: Take 1 tablet by mouth once daily. Nancy Huffman RN July 25, 2024 10:06 AM documented in this encounterMary [facility]01-[facility] Telephone encounter Note * Telephone Encounter - Ro Royal LPN - 07/18/2024 11:18 AM EST According to medication reconcile patient has refills at pharmacy. [facility] Miscellaneous Notes* Telephone Encounter - Ro Royal LPN - 07/18/2024 11:18 AM EST According to medication reconcile patient has refills at pharmacy. * Telephone Encounter - Barndi Randall - 07/18/2024 10:50 AM EST Prescription Refill Information The patient has been identified by name and date of : Yes Caregiver verified no other encounters exist for this prescription request: Yes Caregiver confirmed with patient/requestor that no other refills are due, in the near future, with this provider at this time: Yes The last office visit in the department: 04-21-24 Does the patient have a future office visit with this provider/department: Yes Requested Prescriptions Pending Prescriptions Disp Refills dulaglutide (TRULICITY) 0.75 mg/0.5 mL pen injector 2 mL 11 Sig: Inject 0.75 mg subcutaneously one time a week. Inject dose once per week. Discard Pen After Brandi Randall July 18, 2024 10:51 AM documented in this encounterMary [facility]01-[facility] Telephone encounter Note * Telephone Encounter - Brandi Randall - 07/18/2024 10:50 AM EST Prescription Refill Information The patient has been identified by name and date of : Yes Caregiver verified no other encounters exist for this prescription request: Yes Caregiver confirmed with patient/requestor that no other refills are due, in the near future, with this provider at this time: Yes The last office visit in the department: 04-21-24 Does the patient have a future office visit with this provider/department: Yes Requested Prescriptions Pending Prescriptions Disp Refills dulaglutide (TRULICITY) 0.75 mg/0.5 mL pen injector 2 mL 11 Sig: Inject 0.75 mg subcutaneously one time a week. Inject dose once per week. Discard Pen After Brandi Tonia July 18, 2024 10:51 AM [facility]12-[facility] Telephone encounter Note* Telephone Encounter - Lauryn Baldwin APRN.CNP - 06/20/2024 9:45 AM EST The following approved medication requests have been transmitted electronically. Requested Prescriptions Signed Prescriptions Disp Refills gabapentin (NEURONTIN) 300 mg capsule 30 capsule 5 Sig: Take 1 capsule by mouth daily at bedtime for 180 days. Authorizing Provider: LAURYN BALDWIN APRN.CNP [facility]12-09-[facility] Miscellaneous Notes* Telephone Encounter - Lauryn Baldwin APRN.CNP - 06/20/2024 9:45 AM EST The following approved medication requests have been transmitted electronically. Requested Prescriptions Signed Prescriptions Disp Refills gabapentin (NEURONTIN) 300 mg capsule 30 capsule 5 Sig: Take 1 capsule by mouth daily at bedtime for 180 days. Authorizing Provider: LAURYN BALDWIN APRN.CNP * Telephone Encounter - Earline Virgen RN - 06/20/2024 8:26 AM EST The patient has been identified by name and date of : Yes Caregiver verified no other encounters exist for this prescription request: Yes Caregiver confirmed with patient/requestor that no other refills are due, in the near future, with this provider at this time: Yes The last office visit in the department: 04/21/2024 Does the patient have a future office visit with this provider/department: Yes 10/27/2024 Requested Prescriptions Pending Prescriptions Disp Refills gabapentin (NEURONTIN) 300 mg capsule 30 capsule 5 Sig: Take 1 capsule by mouth daily at bedtime for 180 days. Earline Virgen RN documented in this encounterMary [facility]12-09-2024 Telephone encounter Note * Telephone Encounter - Earline Virgen RN - 06/20/2024 8:26 AM EST The patient has been identified by name and date of : Yes Caregiver verified no other encounters exist for this prescription request: Yes Caregiver confirmed with patient/requestor that no other refills are due, in the near future, with this provider at this time: Yes The last office visit in the department: 04/21/2024 Does the patient have a future office visit with this provider/department: Yes 10/27/2024 Requested Prescriptions Pending Prescriptions Disp Refills gabapentin (NEURONTIN) 300 mg capsule 30 capsule 5 Sig: Take 1 capsule by mouth daily at bedtime for 180 days. Earlnie Virgen RN [facility]11-14-[facility] Telephone encounter Note* Telephone Encounter - [place] CenterShanita jerry APRN.CNP - 05/26/2024 2:37 PM EST MC message sent. [facility] Work Phone: [phone] 954-151411-14-2024 Miscellaneous Notes* Telephone Encounter - Shanita Polk APRN.CNP - 05/26/2024 2:37 PM EST MC message sent. * Telephone Encounter - Shanita Polk APRN.CNP - 04/22/2024 1:33 PM EDT Left message for pt to call back regarding results. PFT show mild obstruction with improvement with BD. Plan to offer daily maintenance inhaler and pulmonary consult. Shanita Polk APRN.CNP documented in this encounterMary [facility]11-14-2024 Telephone encounter Note * Telephone Encounter - Shanita Polk APRN.CNP - 05/26/2024 2:25 PM EST MC message sent. [facility] Miscellaneous Notes* Telephone Encounter - Shanita Polk APRN.CNP - 05/26/2024 2:25 PM EST MC message sent. documented in this encounterMary [facility]10-11-2024 Telephone encounter Note * Telephone Encounter - Shanita Polk APRN.CNP - 04/22/2024 1:33 PM EDT Left message for pt to call back regarding results. PFT show mild obstruction with improvement with BD. Plan to offer daily maintenance inhaler and pulmonary consult. Shanita Polk APRN.CNP [facility]10-10-[facility] Instructions* Patient Instructions* Lauryn Baldwin APRN.CNP - 04/21/2024 11:16 AM EDT 1) Duloxetine 30 mg daily- at bedtime 2) Increase lisinopril to 40 mg daily 3) Stop hydralazine 4) Ear flush kit given 5) Flu shot & Pneumonia vaccines today 6) Follow up in 1 m documented in this encounterMary [facility]10-10-2024 NoteHNO ID: [id number] Author: LAURYN BALDWIN APRN.CNP Service: ? Author Type: Clinical Nurse Specialist Type: Progress Notes Filed: 04/21/2024 12:50 Note Text: Chief Reason For Appointment Patient presents with: Recheck: 6 months Carol Nolan is a 63 year old female who presents for annual exam. Last office visit date: 11/09/2023 Accompanied By spouse, Chris Have you had any critical events, hospital stays, ER visits, surgeries or procedures since your last visit here in our office: No Specialists/Other Healthcare Providers Seen: Patient Care Team: Mac Olvera MD as PCP - General (Family Medicine) Nicole Rodríguez as Referring (Ent - Otolaryngology) Concerns today: None HPI No change in health Active Problems Teeth are loose Chronic back pain- entire back- lo back worst, sometimes down legs ACTIVE PROBLEM LIST Htn (Hypertension) - 08/01/2014 (D priority) Comment: - Patient BP is very high in the ED but she does not have a diagnosis of HTN - Will continue to monitor and depending of the cardiac work up patient might need antihypertensive - BP now stable - Toprol XL added for CAD Obesity, Class III, BMI >= 40 - 01/25/2024 Pre-Operative Cardiovascular Examination - 01/25/2024 Gastroesophageal Reflux Disease With Esophagitis Without Hemorrhage - 11/28/2022 History of Colonic Polyps - 11/28/2022 Carotid Artery Stenosis, Asymptomatic, Bilateral - 12/02/2021 Nsvt (Nonsustained Ventricular Tachycardia) ([facility]) - 12/02/2021 Other Hyperlipidemia - 12/17/2020 Vocal Cord Polyp - 02/05/2018 Comment: Added automatically from request for surgery [id number] 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 Unchanged on repeat. Morbid Obesity ([facility]) - 09/18/2015 Tobacco Use Disorder - 05/31/2015 Palpitations - 12/19/2014 Coronary Artery Disease Involving [place] Coronary Artery of [place] Heart Without Angina Pectoris - 08/31/2014 Comment: 10/03/19 admit [facility] unstable angina, COPD. Heart cath: LVEF 65%, elevated LVEDP; single vessel disease ORTIZ to LAD 75%, Cx <30%, widely patent [place] stents proximal, distal up to 50%. Start hydralazine 03/03/19 stented: LVEF 65%. Mid RCA 85% to 0%, prox RCA 75% to )%LAD 08/03/[address] Zachary Dodson: LM mild non-obstructive, short; LAD 60-70% focal stenosis at bifurcation diagonal branch; LCx 30%; RCA 60%; LVEDP 12mmHg, no DM: Reports overall feeling well. Medication side effects: No. Home sugar checks: Yes- runs around 120 Hypoglycemic spells: Yes. 42, 61- CGM triggers Watching diet: No. Unexpected weight loss: No. Polyuria, polydipsia: No. Vision Changes: No. , - eye exam done (small cataracts) Foot lesions or numbness or pain: No. ROS: REVIEW OF SYSTEMS Smokes 1/2 to 2 ppd for 53 years GENERAL: No weight loss, + malaise- lack of sleep, no fevers/chills HEENT: Negative for frequent or significant headaches, No changes in hearing or vision. NECK: Right lateral base of neck with large, soft mass RESPIRATORY: Persistent smoker's cough, no hemoptysis, + wheezing, + dyspnea or shortness of breath CARDIOVASCULAR: Ongoing but improved chest pain- not related to activity, + leg swelling- Graft harvest side, no orthopnea, Occ palpitations GI: + nausea, + vomiting a couple times a week she does not attribute , both diarrhea/constipation. No hematochezia/melena. No heartburn or reflux symptoms. : + dysuria, frequency or incontinence, no hematuria MUSCULOSKELETAL: Multiple joint pains- wide spread. SKIN: Negative for lesions, rash, and itching ENDOCRINE: Negative for cold or heat intolerance, polyuria, polydipsia and goiter NEURO: No history of headaches, syncope, paralysis, seizures or tremors MOOD: Negative for depression, anxiety, or suicidal ideation. PAST MEDICAL HISTORY Diagnosis Date Arthritis Chronic back pain Cigarette smoker Colon polyps COPD (chronic obstructive pulmonary disease) (HCC) Coronary artery disease Diabetes (HCC) Diarrhea Essential hypertension Fatty liver ultra sound 2014 Hyperglycemia Hyperlipidemia Obesity Preinfarction syndrome (HCC) Tobacco abuse PAST SURGICAL HISTORY Procedure Laterality Date CABG (2) VEIN GRAFTS AND ARTERIAL GRAFT(S 10/17/2015 DELIVERY ONLY , low transverse CHOLECYSTECTOMY HX maybe COLONOSCOPY 11/27/2017 COLONOSCOPY FLX DX W/COLLJ SPEC WHEN PFRMD 05/17/2015 Colonoscopy [facility] outpt ESOPHAGOGASTRODUODENOSCOPY TRANSORAL DIAGNOSTIC 05/17/2015 EGD [facility] outpt HEART SURGERY HX JOINT REPLACEMENT HX ORTHOPEDICS SURGERY HX Left RCR PAST SURGICAL HISTORY OF Bilateral knee arthroscopy PAST SURGICAL HISTORY OF lumbar pain injections PAST SURGICAL HISTORY OF Repair tendon/muscle arm-left rotator cuff solomon (more content not included)... [facility]10-10-2024 History of Present illness Narrative* Lauryn Baldwin, [employer] - 04/21/2024 10:33 AM EDT Chief Reason For Appointment Patient presents with: Recheck: 6 months Carol Nolan is a 63 year old female who presents for annual exam. Last office visit date: 11/09/2023 Accompanied By spouse, Chris Have you had any critical events, hospital stays, ER visits, surgeries or procedures since your last visit here in our office: No Specialists/Other Healthcare Providers Seen: Patient Care Team: Mac Olvera MD as PCP - General (Family Medicine) Nicole Rodríguez as Referring (Ent - Otolaryngology) Concerns today: None HPI No change in health Active Problems Teeth are loose Chronic back pain- entire back- lo back worst, sometimes down legs ACTIVE PROBLEM LIST Htn (Hypertension) - 08/01/2014 (D priority) Comment: - Patient BP is very high in the ED but she does not have a diagnosis of HTN - Will continue to monitor and depending of the cardiac work up patient might need antihypertensive - BP now stable - Toprol XL added for CAD Obesity, Class III, BMI >= 40 - 01/25/2024 Pre-Operative Cardiovascular Examination - 01/25/2024 Gastroesophageal Reflux Disease With Esophagitis Without Hemorrhage - 11/28/2022 History of Colonic Polyps - 11/28/2022 Carotid Artery Stenosis, Asymptomatic, Bilateral - 12/02/2021 Nsvt (Nonsustained Ventricular Tachycardia) ([facility]) - 12/02/2021 Other Hyperlipidemia - 12/17/2020 Vocal Cord Polyp - 02/05/2018 Comment: Added automatically from request for surgery [id number] 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 Unchanged on repeat. Morbid Obesity ([facility]) - 09/18/2015 Tobacco Use Disorder - 05/31/2015 Palpitations - 12/19/2014 Coronary Artery Disease Involving [place] Coronary Artery of [place] Heart Without Angina Pectoris - 08/31/2014 Comment: 10/03/19 admit [facility] unstable angina, COPD. Heart cath: LVEF 65%, elevated LVEDP; single vessel disease ORTIZ to LAD 75%, Cx <30%, widely patent [place] stents proximal, distal up to 50%. Start hydralazine 03/03/19 stented: LVEF 65%. Mid RCA 85% to 0%, prox RCA 75% to )%LAD 08/03/[address] Zachary Dodson: LM mild non-obstructive, short; LAD 60-70% focal stenosis at bifurcation diagonal branch; LCx 30%; RCA 60%; LVEDP 12mmHg, no DM: Reports overall feeling well. Medication side effects: No. Home sugar checks: Yes- runs around 120 Hypoglycemic spells: Yes. 42, 61- CGM triggers Watching diet: No. Unexpected weight loss: No. Polyuria, polydipsia: No. Vision Changes: No. , - eye exam done (small cataracts) Foot lesions or numbness or pain: No. ROS: REVIEW OF SYSTEMS Smokes 1/2 to 2 ppd for 53 years GENERAL: No weight loss, + malaise- lack of sleep, no fevers/chills HEENT: Negative for frequent or significant headaches, No changes in hearing or vision. NECK: Right lateral base of neck with large, soft mass RESPIRATORY: Persistent smoker's cough, no hemoptysis, + wheezing, + dyspnea or shortness of breath CARDIOVASCULAR: Ongoing but improved chest pain- not related to activity, + leg swelling- Graft harvest side, no orthopnea, Occ palpitations GI: + nausea, + vomiting a couple times a week she does not attribute , both diarrhea/constipation.No hematochezia/melena. No heartburn or reflux symptoms. : + dysuria, frequency or incontinence, no hematuria MUSCULOSKELETAL: Multiple joint pains- wide spread. SKIN: Negative for lesions, rash, and itching ENDOCRINE: Negative for cold or heat intolerance, polyuria, polydipsia and goiter NEURO: No history of headaches, syncope, paralysis, seizures or tremors MOOD: Negative for depression, anxiety, or suicidal ideation. PAST MEDICAL HISTORY Diagnosis Date Arthritis Chronic back pain Cigarette smoker Colon polyps COPD (chronic obstructive pulmonary disease) (HCC) Coronary artery disease Diabetes (HCC) Diarrhea Essential hypertension Fatty liver ultra sound 2014 Hyperglycemia Hyperlipidemia Obesity Preinfarction syndrome (HCC) Tobacco abuse PAST SURGICAL HISTORY Procedure Laterality Date CABG (2) VEIN GRAFTS & ARTERIAL GRAFT(S 10/17/2015 DELIVERY ONLY , low transverse CHOLECYSTECTOMY HX maybe 1989' COLONOSCOPY 11/27/2017 COLONOSCOPY FLX DX W/COLLJ SPEC WHEN PFRMD 05/17/2015 Colonoscopy [facility] outpt ESOPHAGOGASTRODUODENOSCOPY TRANSORAL DIAGNOSTIC 05/17/2015 EGD [facility] outpt HEART SURGERY HX JOINT REPLACEMENT HX ORTHOPEDICS SURGERY HX Left RCR PAST SURGICAL HISTORY OF Bilateral knee arthroscopy PAST SURGICAL HISTORY OF lumbar pain injections PAST SURGICAL HISTORY OF Repair tendon/muscle arm-left rotator cuff surgery TONSILLECTOMY AND ADENOIDECTOMY HX TONSILLECTOMY HX TOTAL KNEE REPLACEMENT right TUBAL LIGATION HX Medication List Current Outpatient Medications Medication Sig Dispense Refill metoprolol succinate ER (TOPROL XL) 50 mg 24 hr tablet Take 1 tablet by mouth once daily. 30 tablet5 hydrALAZINE (APRESOLINE) 25 mg tablet Take 0.5 tablets by mouth two times a day. 90 tablet 3 lisinopril (ZESTRIL) 20 mg tablet Take 1 tablet by mouth once daily. 30 tablet 5 albuterol HFA (PROVENTIL HFA, VENTOLIN HFA) 90 mcg/actuation inhaler Inhale 2 Puffs as instructed every 6 hours as needed for wheezing/shortness of breath. 1 Each 3 Ibuprofen 200 mg cap Take by mouth every 6 hours as needed for pain. aspirin, enteric coated (ASPIRIN, ENTERIC COATED) 81 mg EC tablet Take 2 tablets by mouth once daily. 180 tablet 3 rosuvastatin (CRESTOR) 40 mg tablet Take 1 tablet by mouth once daily. 90 tablet 3 dulaglutide (TRULICITY) 0.75 mg/0.5 mL pen injector Inject 0.75 mg subcutaneously one time a week. Inject dose once per week. Discard Pen After 2 mL 11 clopidogrel (PLAVIX) 75 mg tablet Take 1 tablet by mouth once daily. 90 tablet 3 gabapentin (NEURONTIN) 300 mg capsule Take 1 capsule by mouth daily at bedtime for 180 days. 30 capsule 5 Blood-Glucose Meter,Continuous (FREESTYLE [place] 3 READER) [facility] [place] Use as directed 1 Each 0 Blood-Glucose Sensor (FREESTYLE [place] 3 SENSOR) chana Use as directed. 1 Each 11 metFORMIN ER (GLUCOPHAGE XR) 500 mg 24 hr tablet Take 3 tablets by mouth daily with breakfast. 90 tablet 11 nitroglycerin sublingual (NITROQUICK) 0.4 mg SL tablet Dissolve 1 tablet under the tongue as neededfor chest pain. 25 tablet 1 Blood-Glucose Meter (ConveneTOUCH ULTRA2 METER) USE DIRECTED 1 Each 0 blood sugar diagnostic (BLOOD GLUCOSE TEST) test strip Test blood sugar(s) 1 times daily. Dx: Type 2 DM - Uncontrolled E11.65 Insulin: No 50 Strip 11 Lancets lancets Test blood sugar(s) 1 times daily. Dx: Type 2 DM - Uncontrolled E11.65 Insulin: No 100 Each 11 ipratropium-albuterol (DUONEB) 0.5 mg-3 mg(2.5 mg base)/3 mL nebu Inhale 3 mL as instructed four times daily. 120 Vial 3 No current facility-administered medications for this visit. Weight Summary: Weight Change: Body mass index is 48.19 kg/m . Last Wt 04/21/24 : 132 kg (291 lb) 04/18/24 : 132.5 kg (292 lb) 04/18/24 : 132.5 kg (292 lb) 01/25/24 : 131.5 kg (290 lb) 11/09/23 : 131.1 kg (289 lb) Pain level 04/21 Physical Exam: General Appearance: well appearing, alert and oriented. Skin: no suspicious lesion, no rash, no open sores Head: normocephalic, no obvious masses, lesions, tenderness or abnormalities. Eyes: Anicteric sclera. Pupils are equally round and reactive to light. Extraocular movements are intact. No nystagmus. Fundi benign. Ears: external ears normal, canals impacted lee, TM's unable to visualize. Hearing to conversational voice intact. Oropharynx: lips, mucosa, and tongue normal, oropharynx normal. Neck: trachea midline, thyroid without mass or nodularity, thyroid moves normally with swallow, no regional lymphadenopathy. Large lipoma right base of neckCarotids normal upstroke, no bruit or thrill. Back: hurts all over Lungs: Chest rise & fall symmetrical, Lungs clear to auscultation. No wheezing or rhonchi. No rales. Abdomen: normal bowel sounds, no mass, non-tender Heart: S1S2, no gallop, no rub, no murmur Ext: no clubbing, cyanosis or edema. Mood: bright affect, speech clear, answers questions appropriately SCREENINGS Health Maintenance Listing BP Controlled (<130/80) Pneumococcal Vaccine: 65+(2 of 2 - PCV) Mammogram Screening Diabetic Foot Exam Bone Density Screening Advance Directive Discussion Influenza Vaccine(1) TEST RESULTS: Lab Studies: Date of lab studies: reviewed - glucose - potassium - Creatinine, gfr - LFTs Lipid: WBC, H&H, Platelets: A1C: Vitamin D: Other: A/P: ASSESSMENT/PLAN: 1. Other chronic pain - ICD9: 338.29, ICD10: G89.29 (primary diagnosis) - Start duloxetine 30 mg daily, may need to increase 2. Encounter for immunization - ICD9: V03.89, ICD10: Z23 - INFLUENZA VACCINE, PRSV FREE, AGE 65+ YR, HIGH DOSE, TRIVALENT (FLUZONE HIGH-DOSE) 3. Primary hypertension - ICD9: 401.9, ICD10: I10 - Controlled - Recommend home blood pressure monitoring, to bring results to next visit - Encouraged sodium restriction, DASH or Mediterranean diet - Recommend regular aerobic exercise 4. S/P CABG x 2 - ICD9: V45.81, ICD10: Z95.1 - Stable 5. Tobacco use disorder - ICD9: 305.1, ICD10: F17.200 - Cessation encouraged. - Physiologic and physical aspects of tobacco addiction as well as strategies for quitting were discussed. - Counseling was given focusing on the harmful effects of this addiction especially given the patient's medical condition(s) which will be worsened because of the chemicals in tobacco. _ Continues to smoke - Gets LDCT yearly 6. Coronary artery disease involving upper [place] coronary artery of [place] heart without angina pectoris- ICD9: 414.01, ICD10: I25.10 - Stable 7. Enlarged aorta (HCC) - ICD9: 447.8, ICD10: I77.89 - Not seen on LDCT or ultrasound 8. Degeneration of intervertebral disc of lumbar region with discogenic back pain - ICD9: 722.52, ICD10: M51.360 Ongoing 9. Essential hypertension - ICD9: 401.9, ICD10: I10 - Controlled - Recommend home blood pressure monitoring, to bring results to next visit - Encouraged sodium restriction, DASH or Mediterranean diet - Recommend regular aerobic exercise - LISINOPRIL 40 MG TABLET increased from 20 mg - Stop hydralazine because of hard to cut 10. Type 2 diabetes mellitus without complication, without long-term current use of insulin (HCC) -ICD9: 250.00, ICD10: E11.9 - Controlled - Continue current medications - Uses CGM to help her detect low blood suagr, particularly at night - Continue duloxetine Lauryn Baldwin APRN.CNP Discussed treatment plan and patient voices understanding. Patient's questions answered appropriately. Medications and potential side effects were discussed and patient voices understanding. Return to the office as scheduled or as needed for worsening/no improvement. Lauryn Baldwin APRN.CNP Follow Up Plans: 1 m [facility] in [facility] Instructions* Patient Instructions* Shanita Polk APRN.CNP - 04/18/2024 11:16 AM EDT Lung nodule/s: all previously seen nodule/s have not changed in size or characteristic/resolved andthere are no new nodules of concern. Please return in one year for the following 2 visits on the same day: Annual low-dose CT chest Lung cancer screening Provider visit. This recommendation is subject to change pending the final report from radiology. I will notify you of the final radiology report recommendations when available by UCampushart message, letter, or phone call. We will also notify your referring provider/PCP of the results and recommendations. If you didn t schedule this before you left the office or need to reschedule, you can call in to schedule it anytime: [facility] [phone] [facility] [phone] All other [facility] locations [phone] Feel free to reach out for any questions or concerns, Shanita Polk APRN.CNP Lung Cancer Screening [phone] documented in this encounterMary [facility] Hospital10-07-2024 History of Present illness Narrative* Shanita Polk APRN.CNP - 04/18/2024 11:00 AM EDT Images from the original note were not included. Chief Complaint: 6 mos follow-up from LDCT scan dated 09/30/2023 for LUNG RADS Category 3s finding of new 4.1 mm MARY. History of Present Illness: Carol Nolan is a 63 year old female who is presenting today for pulmonary nodule follow-up. Nodule was found through lung cancer screening on LDCT. Patient has a PMH significant for CAD, HTN, CABG x 2. Patient is a current smoker with a 104 pack year history. Currently still smoking 1.5 packs daily. Since the patient's last visit the patient has not had new medical issues or hospitalizations. No recent respiratory infections/pneumonia. The patient does not require assistance with normal activities of daily living. Has limitations in activity due to back pain. Modified Medical Research [place] Dyspnea Scale (MMRC) On level ground I walk slower than people of the same age because of breathlessness, or have to stop for breath when walking at my own pace 2 Patient has SOB with their daily activity. No wheezing or dyspnea. Patient denies feeling of chest tightness/congestion in the chest. Patient does not have a new or concerning cough, and denies hemoptysis. Patient does have a chronic daily cough. Denies regular or recent fevers/chills. Patient doesnot have any significant unintentional weight loss. Patient denies having any respiratory infections or COVID-19 in the past few months. Last 12 Encounter Wt Readings: Date: Wt: 04/18/2024 132.5 kg (292 lb) 04/18/2024 132.5 kg (292 lb) 01/25/2024 131.5 kg (290 lb) 11/09/2023 131.1 kg (289 lb) 09/14/2023 130.3 kg (287 lb 4.8 oz) 08/18/2023 130.6 kg (288 lb) 05/06/2023 130.6 kg (288 lb) 11/14/2022 132 kg (291 lb) 10/31/2022 132.4 kg (291 lb 12.8 oz) 09/30/2022 133.8 kg (295 lb) 06/30/2022 135.6 kg (299 lb) 12/02/2021 134.3 kg (296 lb) Medication Treatment: Are you using regular inhalers?: NA Past Medical History: PAST MEDICAL HISTORY Diagnosis Date Arthritis Chronic back pain Cigarette smoker Colon polyps COPD (chronic obstructive pulmonary disease) (HCC) Coronary artery disease Diabetes (HCC) Diarrhea Essential hypertension Fatty liver ultra sound 2014 Hyperglycemia Hyperlipidemia Obesity Preinfarction syndrome (HCC) Tobacco abuse Surgical Hx: PAST SURGICAL HISTORY Procedure Laterality Date CABG (2) VEIN GRAFTS & ARTERIAL GRAFT(S 10/17/2015 DELIVERY ONLY , low transverse CHOLECYSTECTOMY HX maybe 1989' COLONOSCOPY 11/27/2017 COLONOSCOPY FLX DX W/COLLJ SPEC WHEN PFRMD 05/17/2015 Colonoscopy [facility] outpt ESOPHAGOGASTRODUODENOSCOPY TRANSORAL DIAGNOSTIC 05/17/2015 EGD [facility] outpt HEART SURGERY HX JOINT REPLACEMENT HX ORTHOPEDICS SURGERY HX Left RCR PAST SURGICAL HISTORY OF Bilateral knee arthroscopy PAST SURGICAL HISTORY OF lumbar pain injections PAST SURGICAL HISTORY OF Repair tendon/muscle arm-left rotator cuff surgery TONSILLECTOMY AND ADENOIDECTOMY HX TONSILLECTOMY HX TOTAL KNEE REPLACEMENT right TUBAL LIGATION HX Family Hx: FAMILY HISTORY Problem Relation Age of Onset other (congestive heart failure) Mother other (CKD) Mother other (renal failure) Mother Ischemic Heart Disease Father Lung Cancer Maternal Grandfather Hypertension Daughter lung Allergies: ALLERGIES Allergen Reactions Penicillins Hives, Swelling Nickel Other: See Comments Metal jewelry Social History Tobacco Use: 2 packs/day, for 43 years. Types: Cigarettes Review Of Systems: See HPI for ROS All of the remainder systems were reviewed and negative. PHYSICAL EXAMINATION: BP 134/84 Pulse 80 Resp 14 Ht 5' 5.16 (1.66m) Wt 292 lb (132.5kg) SpO2 96% BMI 48.36 kg/(m^2). General appearance: well appearing, morbidly obese, in no acute distress, and alert Skin: skin color, texture, turgor normal, no rashes or lesions Neck: Supple, no adenopathy; thyroid symmetric, normal size Respiratory: lungs clear to auscultation no wheezing or rhonchi Cardiovascular: Negative. RRR without murmur, gallop, or rubs. No ectopy Musculoskeletal: Extremities normal. No deformities, edema, or skin discoloration. Neuro: Oriented X 3 Data Review I have visually reviewed imaging and testing below CT imaging done today was reviewed and analyzed independently by practitioner and awaiting radiology review. CT was compared to prior CT chest. Prior PFTS: SPIROMETRY WITH DILATOR IF OBSTRUCTED ([id number]) - ordered on 03/02/19 [facility] [address] [place] [address] Test Date: 2019-03-02 Pat Name: CAROL NOLAN Department: Room: Gender: Female Burlapper: : 1960 Requested By: Order Number: [id number] Reading MD: Raciel Vega Interpretive Statements ATS acceptability and repeatability standards for spirometry met. 4 puffs of albuterol (360mcg) delivered by MDI via valved holding chamber, HR pre 91, HR post 91. Medications and allergies were reviewed for possible drug interactions per policy MM-102. No Contraindications or sensitivities were noted. IMPRESSION: Spirometry shows no obstruction. The reduced FVC suggests restriction. There is no significant bronchodilator response. Recommend lung volumes if clinically indicated. Electronically Signed On 03-03-2019 7:48:05 EDT by [facility] [address] [place], [place] [address] PFT Lab Report Name: CAROL NOLAN ID: [id number] Date: 03/02/19 Physician: Joan MUSTAFA Age: 58 Height(in): 66.0 Weight(lb): 289 Gender: Female Race: Diagnosis: Medication Set 1: Dyspnea Rest: No Dyspnea Exercise: No Cough: No Persistent: No Productive (cc): Smoker: No How Long: Stopped: Cigarettes: No Burlapper: Michel Bhakta RCP Temp: 27 PBar: 737 PF Reference: ######## Spirometry Hb: gm/dL Ref Pre Pre Post Post Post Lexie % Ref Lexie % Ref % Chg FVC Liters 3.57 2.67 75 2.78 78 4 FEV1 Liters 2.76 1.90 69 2.06 75 9 FEV1/FVC % 78 71 74 AFQ38-78% L/sec 2.48 1.19 48 1.52 62 28 SxeIWL53-96 L/sec 2.71 1.19 44 1.91 70 60 PEF L/sec 6.63 5.28 80 5.34 80 1 BCY828% Sec 9.94 9.21 -7 MVV L/min 111 f BPM Lung Volumes TLC Liters 5.37 VC Liters 3.57 IC Liters 2.22 FRC N2 Liters 3.05 ERV Liters 1.11 RV Liters 2.09 RV/TLC % 39 Diffusing Capacity DLCO mL/mmHg/min 22.4 DL Adj mL/mmHg/min 22.4 DLCO/VA mL/mHg/min/L 4.35 DL/VA Adj mL/mHg/min/L 4.35 VA Liters 5.15 IVC Liters BHT Sec Resistance Raw cmH2O/L/sec 2.06 sGaw L/s/cmH2O/L 0.250 Respiratory Muscle Force PI max cmH2O 73 PE max cmH2O 138 Assessment and Plan: 1. Pulmonary Nodule: MARY lung nodule identified on the last CT is decreased in size, and no new nodules of concern were seen on the exam. Recommended follow-up in one year. This recommendation is subject to change, pending final radiology report. The patient was counseled on the importance of adherence to annual LDCT lung cancer screening, impact of comorbidities and ability or willingness to undergo diagnosis and treatment. 2. Nicotine Dependence, Current: Smoking cessation encouraged. Offered patient assistance programs and treatment. Patient plans to continue smoking Shanita Polk APRN.CNP April 18, 2024 8:59 AM I spent a total of 30 minutes on the date of the service which included preparing to see the patient, [id number] patient care, completing clinical documentation, performing a medically appropriate examination, counseling and educating the patient/family/caregiver, ordering medications, tests, or p rocedures, communicating with other HCPs (not separately reported), independently interpreting results (not separately reported), communicating results to the patient/family/caregiver, and care coordination (not separately reported). documented in this encounterMary [facility] Hospital10-07-2024 NoteHNO ID: [id number] Author: SHANITA POLK APRN.CNP Service: ? Author Type: Nurse Practitioner Type: Progress Notes Filed: 04/18/2024 15:16 Note Text: Chief Complaint: 6 mos follow-up from LDCT scan dated 09/30/2023 for LUNG RADS Category 3s finding of new 4.1 mm MARY. History of Present Illness: Carol Nolan is a 63 year old female who is presenting today for pulmonary nodule follow-up. Nodule was found through lung cancer screening on LDCT. Patient has a PMH significant for CAD, HTN, CABG x 2. Patient is a current smoker with a 104 pack year history. Currently still smoking 1.5 packs daily. Since the patient's last visit the patient has not had new medical issues or hospitalizations. No recent respiratory infections/pneumonia. The patient does not require assistance with normal activities of daily living. Has limitations in activity due to back pain. Modified Medical Research [place] Dyspnea Scale (MMRC) On level ground I walk slower than people of the same age because of breathlessness, or have to stop for breath when walking at my own pace 2 Patient has SOB with their daily activity. No wheezing or dyspnea. Patient denies feeling of chest tightness/congestion in the chest. Patient does not have a new or concerning cough, and denies hemoptysis. Patient does have a chronic daily cough. Denies regular or recent fevers/chills. Patient does not have any significant unintentional weight loss. Patient denies having any respiratory infections or COVID-19 in the past few months. Last 12 Encounter Wt Readings: Date: Wt: 04/18/2024 132.5 kg (292 lb) 04/18/2024 132.5 kg (292 lb) 01/25/2024 131.5 kg (290 lb) 11/09/2023 131.1 kg (289 lb) 09/14/2023 130.3 kg (287 lb 4.8 oz) 08/18/2023 130.6 kg (288 lb) 05/06/2023 130.6 kg (288 lb) 11/14/2022 132 kg (291 lb) 10/31/2022 132.4 kg (291 lb 12.8 oz) 09/30/2022 133.8 kg (295 lb) 06/30/2022 135.6 kg (299 lb) 12/02/2021 134.3 kg (296 lb) Medication Treatment: Are you using regular inhalers?: NA Past Medical History: PAST MEDICAL HISTORY Diagnosis Date Arthritis Chronic back pain Cigarette smoker Colon polyps COPD (chronic obstructive pulmonary disease) (HCC) Coronary artery disease Diabetes (HCC) Diarrhea Essential hypertension Fatty liver ultra sound 2014 Hyperglycemia Hyperlipidemia Obesity Preinfarction syndrome (HCC) Tobacco abuse Surgical Hx: PAST SURGICAL HISTORY Procedure Laterality Date CABG (2) VEIN GRAFTS AND ARTERIAL GRAFT(S 10/17/2015 DELIVERY ONLY , low transverse CHOLECYSTECTOMY HX maybe 1989' COLONOSCOPY 11/27/2017 COLONOSCOPY FLX DX W/COLLJ SPEC WHEN PFRMD 05/17/2015 Colonoscopy [facility] outpt ESOPHAGOGASTRODUODENOSCOPY TRANSORAL DIAGNOSTIC 05/17/2015 EGD [facility] outpt HEART SURGERY HX JOINT REPLACEMENT HX ORTHOPEDICS SURGERY HX Left RCR PAST SURGICAL HISTORY OF Bilateral knee arthroscopy PAST SURGICAL HISTORY OF lumbar pain injections PAST SURGICAL HISTORY OF Repair tendon/muscle arm-left rotator cuff surgery TONSILLECTOMY AND ADENOIDECTOMY HX TONSILLECTOMY HX TOTAL KNEE REPLACEMENT right TUBAL LIGATION HX Family Hx: FAMILY HISTORY Problem Relation Age of Onset other (congestive heart failure) Mother other (CKD) Mother other (renal failure) Mother Ischemic Heart Disease Father Lung Cancer Maternal Grandfather Hypertension Daughter lung Allergies: ALLERGIES Allergen Reactions Penicillins Hives, Swelling Nickel Other: See Comments Metal jewelry Social History Tobacco Use: 2 packs/day, for 43 years. Types: Cigarettes Review Of Systems: See HPI for ROS All of the remainder systems were reviewed and negative. PHYSICAL EXAMINATION: BP 134/84 Pulse 80 Resp 14 Ht 5' 5.16 (1.66m) Wt 292 lb (132.5kg) SpO2 96% BMI 48.36 kg/(m2). General appearance: well appearing, morbidly obese, in no acute distress, and alert Skin: skin color, texture, turgor normal, no rashes or lesions Neck: Supple, no adenopathy; thyroid symmetric, normal size Respiratory: lungs clear to auscultation no wheezing or rhonchi Cardiovascular: Negative. RRR without murmur, gallop, or rubs. No ectopy Musculoskeletal: Extremities normal. No deformities, edema, or skin discoloration. Neuro: Oriented X 3 Data Review I have visually reviewed imaging and testing below CT imaging done today was reviewed and analyzed independently by practitioner and awaiting radiology review. CT was compared to prior CT chest. Prior PFTS: SPIROMETRY WITH DILATOR IF OBSTRUCTED ([id number]) - ordered on 03/02/19 [facility] [address] [facility] [address] [facility], [place] [address] Test Date: 2019-03-02 Pat Name: CAROL NOLAN Department: Room: Gender: Female Burlapper: : 1960 Requested By: Order Number: [id number] Reading MD: Raciel Vega Interpretive Statements ATS acceptability and r (more content not included)...[facility] 04-18-2024 NoteHNO ID: [id number] Author: MICHEL BHAKTA RPFT Service: ? Author Type: Respiratory Therapist Type: Progress Notes Filed: 04/18/2024 10:40 Note Text: PULM FUNCTION: Provider: Shanita Polk APRN.SHIFT PRODUCTION ASSOCIATE Assisting Tech: Petush, Michel, RPFT Spirometry w/BD: 1 DLCO: 1 LV - [facility] History of Present illness Narrative* Michel Bhakta RPFT - 04/18/2024 10:38 AM EDT PULM FUNCTION: Provider: Shanita Polk APRN.SHIFT PRODUCTION ASSOCIATE Assisting Tech: Petush, Michel, RPFT Spirometry w/BD: 1 DLCO: 1 LV - Box: 1 documented in this encounterMary [facility]an Hospital10-07-2024 History of Present illness Narrative* Miya Rosenbaum RT(R) - 04/18/2024 9:20 AM EDT Radiology Service Progress Note PATIENT NAME: Carol Nolan DATE OF SERVICE: April 18, 2024 TIME: 1:08 PM PATIENT IDENTITY VERIFICATION COMPLETED USING TWO (2) IDENTIFIERS: Name and Date of confirmedby patient verbally. FALL SCREENING: Has the patient had 2 falls in the last year or 1 fall with injury or currently using an Ambulatory Assistive Device (Walker, Cane, Wheelchair, Crutches, etc.)? No PATIENT GENDER DATA: Female. status: : No status: NO. PATIENT RELEVANT IMPLANT DATA REVIEWED: Yes PATIENT PRESENTS WITH AN IMPLANTABLE OR ATTACHED HAIRSPRING SETTER: No RADIOLOGY DEPARTMENT: CT; Exam(s) Completed: Lung Screening PERIPHERAL IV DATA: Not applicable SIGNED BY: RT Jolly(Michael) April 18, 2024 1:08 PM documented in this encounterMary [facility]an Hospital10-07-2024 NoteHNO ID: [id number] Author: MIYA ROSENBAUM RT(R) Service: ? Author Type: Burlapper Type: Progress Notes Filed: 04/18/2024 13:08 Note Text: Radiology Service Progress Note PATIENT NAME: Carol Nolan DATE OF SERVICE: April 18, 2024 TIME: 1:08 PM PATIENT IDENTITY VERIFICATION COMPLETED USING TWO (2) IDENTIFIERS: Name and Date of confirmed by patient verbally. FALL SCREENING: Has the patient had 2 falls in the last year or 1 fall with injury or currently using an Ambulatory Assistive Device (Walker, Cane, Wheelchair, Crutches, etc.)? No PATIENT GENDER DATA: Female. status: : No status: NO. PATIENT RELEVANT IMPLANT DATA REVIEWED: Yes PATIENT PRESENTS WITH AN IMPLANTABLE OR ATTACHED HAIRSPRING SETTER: No RADIOLOGY DEPARTMENT: CT; Exam(s) Completed: Lung Screening PERIPHERAL IV DATA: Not applicable SIGNED BY: RT Jolly(R) April 18, 2024 1:08 [place]09-23-2024 Telephone encounter Note* Telephone Encounter - Lauryn Cordoba LPN - 04/04/2024 9:10 AM EDT Prescription Refill Information The patient has been identified by name and date of : Yes Caregiver verified no other encounters exist for this prescription request: Yes Caregiver confirmed with patient/requestor that no other refills are due, in the near future, with this provider at this time: Yes The last office visit in the department: 11/09/2023 Does the patient have a future office visit with this provider/department: Yes Requested Prescriptions Pending Prescriptions Disp Refills lisinopril (ZESTRIL) 20 mg tablet 30 tablet 5 Sig: Take 1 tablet by mouth once daily. Lauryn Cordoba LPN April 04, 2024 9:11 AM [facility]09-23-2024 Miscellaneous Notes* Telephone Encounter - Lauryn Cordoba LPN - 04/04/2024 9:10 AM EDT Prescription Refill Information The patient has been identified by name and date of : Yes Caregiver verified no other encounters exist for this prescription request: Yes Caregiver confirmed with patient/requestor that no other refills are due, in the near future, with this provider at this time: Yes The last office visit in the department: 11/09/2023 Does the patient have a future office visit with this provider/department: Yes Requested Prescriptions Pending Prescriptions Disp Refills lisinopril (ZESTRIL) 20 mg tablet 30 tablet 5 Sig: Take 1 tablet by mouth once daily. Lauryn Cordoba LPN April 04, 2024 9:11 AM documented in this encounterMary [facility]an Hospital09-23-2024 Telephone encounter Note * Telephone Encounter - Lois Anne RN - 04/04/2024 8:45 AM EDT The patient has been identified by name and date of : Yes Caregiver verified no other encounters exist for this prescription request: Yes Caregiver confirmed with patient/requestor that no other refills are due, in the near future, with this provider at this time: Yes The last office visit in the department: 11/09/2023 Does the patient have a future office visit with this provider/department: 04/21/2024 Requested Prescriptions Pending Prescriptions Disp Refills metoprolol succinate ER (TOPROL XL) 50 mg 24 hr tablet 30 tablet 5 Sig: Take 1 tablet by mouth once daily. Lois Anne RN April 04, 2024 8:45 AM [facility]09-23-[facility] Miscellaneous Notes* Telephone Encounter - Lois Anne RN - 04/04/2024 8:45 AM EDT The patient has been identified by name and date of : Yes Caregiver verified no other encounters exist for this prescription request: Yes Caregiver confirmed with patient/requestor that no other refills are due, in the near future, with this provider at this time: Yes The last office visit in the department: 11/09/2023 Does the patient have a future office visit with this provider/department: 04/21/2024 Requested Prescriptions Pending Prescriptions Disp Refills metoprolol succinate ER (TOPROL XL) 50 mg 24 hr tablet 30 tablet 5 Sig: Take 1 tablet by mouth once daily. Lois Anne RN April 04, 2024 8:45 AM documented in this encounterMary Rutan Hospital09-19-2024 Telephone encounter Note * Telephone Encounter - Mac Olvera MD - 03/31/2024 9:04 AM EDT Ordered. [facility]09-19-[facility] Miscellaneous Notes* Telephone Encounter - Mac Olvera MD - 03/31/2024 9:04 AM EDT Ordered. * Telephone Encounter - Nancy Huffman RN - 03/31/2024 8:46 AM EDT Called and spoke with patient. Patient scheduled for 6 month follow up with Hannah on 04/21. Patient asking if there are any other labs that provider wants patient to get done? Patient is planning ongetting labs done for Dr. Delacruz (CMP and Lipid Panel) on 04/18. Please review and advise, Nancy Huffman RN documented in this encounterMary Rutan Hospital09-19-2024 Telephone encounter Note * Telephone Encounter - Nancy Huffman RN - 03/31/2024 8:46 AM EDT Called and spoke with patient. Patient scheduled for 6 month follow up with Hannah on 04/21. Patient asking if there are any other labs that provider wants patient to get done? Patient is planning ongetting labs done for Dr. Delacruz (CMP and Lipid Panel) on 04/18. Please review and advise, Nancy Huffman RN [facility]09-05-2024 Telephone encounter Note* Telephone Encounter - Leyla Ervin - 03/17/2024 9:41 AM EDT Prescription Refill Information The patient has been identified by name and date of : Yes Caregiver verified no other encounters exist for this prescription request: Yes Caregiver confirmed with patient/requestor that no other refills are due, in the near future, with this provider at this time: Yes The last office visit in the department: 11-09-23 Does the patient have a future office visit with this provider/department: No Requested Prescriptions Pending Prescriptions Disp Refills albuterol HFA (PROVENTIL HFA, VENTOLIN HFA) 90 mcg/actuation inhaler 1 Each 3 Sig: Inhale 2 Puffs as instructed every 6 hours as needed for wheezing/shortness of breath. Leyla Kaur March 17, 2024 9:41 AM [facility]09-05-[facility] Miscellaneous Notes* Telephone Encounter - Leyla Ervin - 03/17/2024 9:41 AM EDT Prescription Refill Information The patient has been identified by name and date of : Yes Caregiver verified no other encounters exist for this prescription request: Yes Caregiver confirmed with patient/requestor that no other refills are due, in the near future, with this provider at this time: Yes The last office visit in the department: 11-09-23 Does the patient have a future office visit with this provider/department: No Requested Prescriptions Pending Prescriptions Disp Refills albuterol HFA (PROVENTIL HFA, VENTOLIN HFA) 90 mcg/actuation inhaler 1 Each 3 Sig: Inhale 2 Puffs as instructed every 6 hours as needed for wheezing/shortness of breath. Leyla Kaur March 17, 2024 9:41 AM documented in this encounterMary Rutan Hospital07-17-2024 Telephone encounter Note * Telephone Encounter - Kandace Lott MA - 01/27/2024 4:52 PM EDT Patient informed and verbalized understanding. Kandace Lott MA [facility]07-17-2024 Miscellaneous Notes* Telephone Encounter - Kandace Lott MA - 01/27/2024 4:52 PM EDT Patient informed and verbalized understanding. Kandace Lott MA * Telephone Encounter - Mac Olvera MD - 01/27/2024 4:43 PM EDT Xray shows degenerative disc disease. See pain management as recommended. Also it shows that the outline of her aorta looks a little big although xray is a poor way to tell. Do us of the aorta. documented in this encounterMary Rutan Hospital07-17-2024 Telephone encounter Note * Telephone Encounter - Mac Olvera MD - 01/27/2024 4:43 PM EDT Xray shows degenerative disc disease. See pain management as recommended. Also it shows that the outline of her aorta looks a little big although xray is a poor way to tell. Do us of the aorta. [facility] Telephone encounter Note* Telephone Encounter - Ro Royal LPN - 01/25/2024 11:33 AM EDT Patient is in x-ray and asking about right shoulder x-ray? Looks like on 11/09/23 OV we were going to order -ray for her. [facility]07-15-[facility] Miscellaneous Notes* Telephone Encounter - Ro Royal LPN - 01/25/2024 11:33 AM EDT Patient is in x-ray and asking about right shoulder x-ray? Looks like on 11/09/23 OV we were going to order -ray for her. documented in this encounterMary Rutan Hospital07-15-2024 History of Present illness Narrative* Gopal Beach RT(R) - 01/25/2024 11:30 AM EDT Radiology Service Progress Note PATIENT NAME: Carol Nolan DATE OF SERVICE: January 25, 2024 TIME: 11:26 AM PATIENT IDENTITY VERIFICATION COMPLETED USING TWO (2) IDENTIFIERS: Name and Date of confirmedby patient verbally. FALL SCREENING: Has the patient had 2 falls in the last year or 1 fall with injury or currently using an Ambulatory Assistive Device (Walker, Cane, Wheelchair, Crutches, etc.)? No PATIENT GENDER DATA: Female. status: : No status: NO. PATIENT RELEVANT IMPLANT DATA REVIEWED: Yes PATIENT PRESENTS WITH AN IMPLANTABLE OR ATTACHED HAIRSPRING SETTER: No RADIOLOGY DEPARTMENT: General X-ray: Exam(s) Completed: Spine X-Ray(s): Lumbar AP / LAT / L5-S1 Upper Extremity X-Ray(s): Shoulder, AP / TRUE AP / AXILLARY right PERIPHERAL IV DATA: Not applicable SIGNED BY: RT Danny(R) January 25, 2024 11:26 AM documented in this encounterMary Rutan Hospital07-15-2024 NoteHNO ID: [id number] Author: GOPAL BEACH RT(Michael) Service: ? Author Type: Burlapper Type: Progress Notes Filed: 01/25/2024 11:59 Note Text: Radiology Service Progress Note PATIENT NAME: Carol Nolan DATE OF SERVICE: January 25, 2024 TIME: 11:26 AM PATIENT IDENTITY VERIFICATION COMPLETED USING TWO (2) IDENTIFIERS: Name and Date of confirmed by patient verbally. FALL SCREENING: Has the patient had 2 falls in the last year or 1 fall with injury or currently using an Ambulatory Assistive Device (Walker, Cane, Wheelchair, Crutches, etc.)? No PATIENT GENDER DATA: Female. status: : No status: NO. PATIENT RELEVANT IMPLANT DATA REVIEWED: Yes PATIENT PRESENTS WITH AN IMPLANTABLE OR ATTACHED HAIRSPRING SETTER: No RADIOLOGY DEPARTMENT: General X-ray: Exam(s) Completed: Spine X-Ray(s): Lumbar AP / LAT / L5-S1 Upper Extremity X-Ray(s): Shoulder, AP / TRUE AP / AXILLARY right PERIPHERAL IV DATA: Not applicable SIGNED BY: RT Danny(R) January 25, 2024 11:26 [facility]07-15-2024 Instructions* Patient Instructions* Rc Delacruz MD - 01/25/2024 11:08 AM EDT We are increasing the Crestor to 40 mg once per day Repeat fasting blood work in 4 months [facility] History of Present illness Narrative* Rc Delacruz MD - 01/25/2024 11:00 AM EDT Images from the original note were not included. [facility] SECTION OF REGIONAL CARDIOLOGY Cardiology ([facility]) [address] [facility] [id number] OUTPATIENT VISIT DATE 01/25/2024 PRIMARY CARE PHYSICIAN: Mac Olvera [address] [place] [address] HISTORY OF PRESENT ILLNESS: Ms. Nolan is a 63 year old morbidly obese woman with a history of coronary artery disease and prior coronary bypass grafting in 2016 subsequent coronary intervention of the right coronary artery in February 2019, hypertension, diabetes (xom-qftqjid-aaanrkajz), dyslipidemia, and ongoing smoking of 2 packs of cigarettes a day who presents for routine follow-up. She was admitted to [facility] in late October early November due to chest pain. Her workup was negative for an acute coronary syndrome and she was discharged home. She continues to have normal daily chest pain. It is often sharp and stabbing not necessarily associated with exertion. Her symptoms have not changed over the last 4 to 5 years. She has chronic shortness of breath on exertion which is also unchanged from prior. She has not had symptoms consistent with PND or orthopnea. She was recently evaluated by dentist whotold her she has to have all her teeth removed due to infection. She is trying to make arrangementswith a dentist. PAST MEDICAL HISTORY Diagnosis Date Arthritis Chronic back pain Cigarette smoker Colon polyps COPD (chronic obstructive pulmonary disease) (HCC) Coronary artery disease Diabetes (HCC) Diarrhea Essential hypertension Fatty liver ultra sound 2014 Hyperglycemia Hyperlipidemia Obesity Preinfarction syndrome (HCC) Tobacco abuse PAST SURGICAL HISTORY Procedure Laterality Date CABG (2) VEIN GRAFTS & ARTERIAL GRAFT(S 10/17/2015 DELIVERY ONLY , low transverse CHOLECYSTECTOMY HX maybe COLONOSCOPY 11/27/2017 COLONOSCOPY FLX DX W/COLLJ SPEC WHEN PFRMD 05/17/2015 Colonoscopy [facility] outpt ESOPHAGOGASTRODUODENOSCOPY TRANSORAL DIAGNOSTIC 05/17/2015 EGD [facility] outpt HEART SURGERY HX JOINT REPLACEMENT HX ORTHOPEDICS SURGERY HX Left RCR PAST SURGICAL HISTORY OF Bilateral knee arthroscopy PAST SURGICAL HISTORY OF lumbar pain injections PAST SURGICAL HISTORY OF Repair tendon/muscle arm-left rotator cuff surgery TONSILLECTOMY AND ADENOIDECTOMY HX TONSILLECTOMY HX TOTAL KNEE REPLACEMENT right TUBAL LIGATION HX SOCIAL HISTORY Social History Tobacco Use Smoking status: Every Day Packs/day: 2.00 Years: 43.00 Additional pack years: 0.00 Total pack years: 86.00 Types: Cigarettes Start date: 04/27/1972 Smokeless tobacco: Former Tobacco comments: started smoking at age 11;cigarette; Amount: 20-39 cigs/day; 1 1/2 - 2 ppd x 43 years; Vaping Use Vaping Use: Never used Substance Use Topics Alcohol use: Yes Alcohol/week: 2.0 - 3.0 standard drinks of alcohol Types: 2 - 3 Cans of Beer (12oz) per week Comment: 2-3 x per week Drug use: No FAMILY HISTORY Problem Relation Age of Onset other (congestive heart failure) Mother other (CKD) Mother other (renal failure) Mother Ischemic Heart Disease Father Lung Cancer Maternal Grandfather Hypertension Daughter lung ALLERGIES: ALLERGIES Allergen Reactions Penicillins Hives, Swelling Nickel Other: See Comments Metal jewelry MEDICATIONS: Ibuprofen 200 mg cap Take by mouth every 6 hours as needed for pain. dulaglutide (TRULICITY) 0.75 mg/0.5 mL pen injector Inject 0.75 mg subcutaneously one time a week. Inject dose once per week. Discard Pen After rosuvastatin (CRESTOR) 20 mg tablet Take 1 tablet by mouth once daily. clopidogrel (PLAVIX) 75 mg tablet Take 1 tablet by mouth once daily. gabapentin (NEURONTIN) 300 mg capsule Take 1 capsule by mouth daily at bedtime for 180 days. Blood-Glucose Meter,Continuous (FREESTYLE GARDENIA 3 READER) [facility] Use as directed Blood-Glucose Sensor (FREESTYLE GARDENIA 3 SENSOR) [facility] Use as directed. albuterol HFA (PROVENTIL HFA, VENTOLIN HFA) 90 mcg/actuation inhaler Inhale 2 Puffs as instructed every 6 hours as needed for wheezing/shortness of breath. metFORMIN ER (GLUCOPHAGE XR) 500 mg 24 hr tablet Take 3 tablets by mouth daily with breakfast. lisinopril (ZESTRIL) 20 mg tablet Take 1 tablet by mouth once daily. nitroglycerin sublingual (NITROQUICK) 0.4 mg SL tablet Dissolve 1 tablet under the tongue as neededfor chest pain. aspirin, enteric coated (ASPIRIN, ENTERIC COATED) 81 mg EC tablet Take 2 tablets by mouth once daily. metoprolol succinate ER (TOPROL XL) 50 mg 24 hr tablet Take 1 tablet by mouth once daily. hydrALAZINE (APRESOLINE) 25 mg tablet Take 0.5 tablets by mouth two times a day. Blood-Glucose Meter (ONETOUCH ULTRA2 METER) USE DIRECTED blood sugar diagnostic (BLOOD GLUCOSE TEST) test strip Test blood sugar(s) 1 times daily. Dx: Type 2 DM - Uncontrolled E11.65 Insulin: No Lancets lancets Test blood sugar(s) 1 times daily. Dx: Type 2 DM - Uncontrolled E11.65 Insulin: No ipratropium-albuterol (DUONEB) 0.5 mg-3 mg(2.5 mg base)/3 mL nebu Inhale 3 mL as instructed four times daily. REVIEW OF SYSTEMS: Review of Systems Constitutional: Positive for malaise/fatigue. Negative for chills, fever and weight loss. HENT: Negative for hearing loss and sore throat. Eyes: Negative for blurred vision and double vision. Respiratory: Positive for shortness of breath. Negative for cough, sputum production and wheezing. Cardiovascular: Positive for chest pain, palpitations and leg swelling. Negative for orthopnea, claudication and PND. Gastrointestinal: Negative. Genitourinary: Negative for dysuria, frequency, hematuria and urgency. Musculoskeletal: Positive for back pain and myalgias. Skin: Negative. Neurological: Negative for dizziness, seizures, loss of consciousness, weakness and headaches. Endo/Heme/Allergies: Negative for environmental allergies. Does not bruise/bleed easily. Psychiatric/Behavioral: Negative for depression. PHYSICAL EXAMINATION: BP 128/82 Pulse 72 Wt 131.5 kg (290 lb) SpO2 96% BMI 46.81 kg/m General: Pleasant morbidly obese woman sitting appears comfortable in no apparent distress. She is alert and oriented x3 HEENT: Carotid upstrokes are brisk bilateral without bruits. No appreciable JVD. Thyroid is palpable and not enlarged. Pulmonary: Lungs are clear no rales, wheezes, rhonchi Cardiovascular: Normal S1-S2 with tachycardia. Otherwise normal rhythm. No murmurs, rubs, or gallops appreciate Extremities: Warm, well-perfused, no lower extremity edema. 2+ distal pulses. CARDIOVASCULAR MEDICINE TESTING: ECG in the office 06/30/2022: Normal sinus rhythm with normal axis. Nonspecific ST-T wave changes noted in leads V1 to V3 ECG in the office 12/17/2020: Normal sinus rhythm with normal axis and intervals. Nonspecific T wave changes noted in leads V1 and V2. Cardiac catheterization [facility] 10/05/2019: Normal left ventricular systolic function LVEF 65% Elevated left ventricular EDP Single-vessel coronary artery disease of the LAD, proximal 75% stenosis LCx: Nonobstructive disease, OM1 proximal mild luminal irregularities Widely patent proximal and mid RCA stents, distal RCA transition to PDA with less than 50% stenosis ORTIZ-LAD not reimaged as it was patent and a 2019 Regadenoson Cardiolite Stress 05/07/2023: 1. There were no cardiac dysrhythmias 2. Rest and stress SPECT Cardiolite nuclear imaging demonstrate relative uniform tracer uptake and myocardial perfusion appearing within normal limits 3. The gated Cardiolite study reports an EF of 75% Echocardiogram 01/07/2021 - Technically difficult exam due to suboptimal positioning and body habitus. - Exam indication: CAD - The left ventricle is small. Left ventricular systolic function is normal. EF = 70 5% (2D 4-ch.) Grade I left ventricular diastolic dysfunction. - The right ventricle is normal in size. Right ventricular systolic function is normal. - There are no significant valvular abnormalities. - The patient has not had a prior CC echocardiographic exam for comparison. Zio Monitor 01/22/2021 Patient had a min HR of 50 bpm, max HR of 207 bpm, and avg HR of 76 bpm. Predominant underlying rhythm was Sinus Rhythm. - 1 run of Ventricular Tachycardia occurred lasting 11 beats with a max rate of 207 bpm (avg 174 bpm). - 3 Supraventricular Tachycardia runs occurred, the run with the fastest interval [id number] beats with a max rate of 135 bpm (avg 108 bpm); the run with the fastest interval was also the longest. Some episodes of Supraventricular Tachycardia may be possible AtrialTachycardia with variable block. - Isolated SVEs were rare (<1.0%), SVE Couplets were rare (<1.0%), and SVE Triplets were rare(<1.0%). Isolated VEs were rare (<1.0%), VE Couplets were rare (<1.0%), and no VE Tripletswere present Carotid Ultrasound 12/13/2021: IMPRESSION RIGHT SIDE Common carotid artery: Plaque visualized without evidence of hemodynamically significant stenosis. Internal carotid artery: 40-59% stenosis. Vertebral artery: Patent and antegrade flow noted. Subclavian artery: Plaque visualized without evidence of hemodynamically significant stenosis. LEFT SIDE Internal carotid artery: 20-39% stenosis. Vertebral artery: Patent and antegrade flow noted. IMPRESSION: Ms. Nolan is a 63 year old woman with known coronary artery disease prior coronary bypass grafting in 2016 with a ORTIZ to the LAD and SVG to RCA. She underwent cardiac catheterization in February 2019. At that time, she was found to have an occluded SVG graft to the RCA. The [place] right coronary artery was treated with drug-eluting stent placement. Due to ongoing complaints of chest pain and shortness of breath she underwent repeat cardiac catheterization in September 2019. The latter as noted above demonstrating patent RCA stents and otherwise unchanged from prior study. She is also treated for diabetes, hypertension, and dyslipidemia. PLAN AND RECOMMENDATIONS: 1. Coronary artery disease involving upper [place] coronary artery of upper [place] heart without angina pectoris- ICD9: 414.01, ICD10: I25.10 (primary diagnosis) Patient with chronic atypical chest pain symptoms. Last catheterization in 2019 demonstrated patentstents. She had a low risk stress test completed April 2023. Recent hospital admission for chest pain with negative workup for an acute coronary syndrome. Discussed possibly starting Imdur in placeof short acting nitroglycerin. Patient does not want to make any medication adjustments at this time - ASPIRIN 81 MG TABLET,DELAYED RELEASE - COMPREHENSIVE METABOLIC PANEL 2. NSVT (nonsustained ventricular tachycardia) (HCC) - ICD9: 427.1, ICD10: I47.29 3. Primary hypertension - ICD9: 401.9, ICD10: I10 Adequate controlled on current regimen 4. Other hyperlipidemia - ICD9: 272.4, ICD10: E78.49 Fasting blood work from August 2023 was reviewed. LDL cholesterol 93 mg/dL. Increase Crestor to 40 mg daily. Recheck fasting blood work in 3 to 4 months 5. Carotid artery stenosis, asymptomatic, bilateral - ICD9: 433.10, 433.30, ICD10: I65.23 Mild disease on most recent carotid ultrasound December 2021. No symptoms concerning for TIA or CVA 6. Obesity, Class III, BMI >= 40 - ICD9: 278.01, ICD10: E66.01 7. Pre-operative cardiovascular examination - ICD9: V72.81, ICD10: Z01.810 Patient at low risk for planned low risk procedure. 8. Hyperlipidemia, mixed - ICD9: 272.2, ICD10: E78.2 - ROSUVASTATIN 40 MG TABLET - COMPREHENSIVE METABOLIC PANEL - LIPID PANEL BASIC Rc Delacruz MD documented in this encounterMary [facility] NoteHNO ID: [id number] Author: RC DELACRUZ MD Service: ? Author Type: Physician Type: Progress Notes Filed: 01/25/2024 11:33 Note Text: [facility] SECTION OF REGIONAL CARDIOLOGY Cardiology ([facility]) [address] [id number] OUTPATIENT VISIT DATE 01/25/2024 PRIMARY CARE PHYSICIAN: [place] [address] HISTORY OF PRESENT ILLNESS: Ms. Nolan is a 63 year old morbidly obese woman with a history of coronary artery disease and prior coronary bypass grafting in 2015 subsequent coronary intervention of the right coronary artery in February 2019, hypertension, diabetes (bdo-ksydrvm-lrarlqeas), dyslipidemia, and ongoing smoking of 2 packs of cigarettes a day who presents for routine follow-up. She was admitted to [facility] in late October early November due to chest pain. Her workup was negative for an acute coronary syndrome and she was discharged home. She continues to have normal daily chest pain. It is often sharp and stabbing not necessarily associated with exertion. Her symptoms have not changed over the last 4 to 5 years. She has chronic shortness of breath on exertion which is also unchanged from prior. She has not had symptoms consistent with PND or orthopnea. She was recently evaluated by dentist who told her she has to have all her teeth removed due to infection. She is trying to make arrangements with a dentist. PAST MEDICAL HISTORY Diagnosis Date Arthritis Chronic back pain Cigarette smoker Colon polyps COPD (chronic obstructive pulmonary disease) (HCC) Coronary artery disease Diabetes (HCC) Diarrhea Essential hypertension Fatty liver ultra sound 2014 Hyperglycemia Hyperlipidemia Obesity Preinfarction syndrome (HCC) Tobacco abuse PAST SURGICAL HISTORY Procedure Laterality Date CABG (2) VEIN GRAFTS AND ARTERIAL GRAFT(S 10/17/2015 DELIVERY ONLY , low transverse CHOLECYSTECTOMY HX maybe 1989' COLONOSCOPY 11/27/2017 COLONOSCOPY FLX DX W/COLLJ SPEC WHEN PFRMD 05/17/2015 Colonoscopy [facility] outpt ESOPHAGOGASTRODUODENOSCOPY TRANSORAL DIAGNOSTIC 05/17/2015 EGD [facility] outpt HEART SURGERY HX JOINT REPLACEMENT HX ORTHOPEDICS SURGERY HX Left RCR PAST SURGICAL HISTORY OF Bilateral knee arthroscopy PAST SURGICAL HISTORY OF lumbar pain injections PAST SURGICAL HISTORY OF Repair tendon/muscle arm-left rotator cuff surgery TONSILLECTOMY AND ADENOIDECTOMY HX TONSILLECTOMY HX TOTAL KNEE REPLACEMENT right TUBAL LIGATION HX SOCIAL HISTORY Social History Tobacco Use Smoking status: Every Day Packs/day: 2.00 Years: 43.00 Additional pack years: 0.00 Total pack years: 86.00 Types: Cigarettes Start date: 04/27/1972 Smokeless tobacco: Former Tobacco comments: started smoking at age 11;cigarette; Amount: 20-39 cigs/day; 1 1/2 - 2 ppd x 43 years; Vaping Use Vaping Use: Never used Substance Use Topics Alcohol use: Yes Alcohol/week: 2.0 - 3.0 standard drinks of alcohol Types: 2 - 3 Cans of Beer (12oz) per week Comment: 2-3 x per week Drug use: No FAMILY HISTORY Problem Relation Age of Onset other (congestive heart failure) Mother other (CKD) Mother other (renal failure) Mother Ischemic Heart Disease Father Lung Cancer Maternal Grandfather Hypertension Daughter lung ALLERGIES: ALLERGIES Allergen Reactions Penicillins Hives, Swelling Nickel Other: See Comments Metal jewelry MEDICATIONS: Ibuprofen 200 mg cap Take by mouth every 6 hours as needed for pain. dulaglutide (TRULICITY) 0.75 mg/0.5 mL pen injector Inject 0.75 mg subcutaneously one time a week. Inject dose once per week. Discard Pen After rosuvastatin (CRESTOR) 20 mg tablet Take 1 tablet by mouth once daily. clopidogrel (PLAVIX) 75 mg tablet Take 1 tablet by mouth once daily. gabapentin (NEURONTIN) 300 mg capsule Take 1 capsule by mouth daily at bedtime for 180 days. Blood-Glucose Meter,Continuous (FREESTYLE GARDENIA 3 READER) [facility] Use as directed Blood-Glucose Sensor (FREESTYLE GARDENIA 3 SENSOR) [facility] Use as directed. albuterol HFA (PROVENTIL HFA, VENTOLIN HFA) 90 mcg/actuation inhaler Inhale 2 Puffs as instructed every 6 hours as needed for wheezing/shortness of breath. metFORMIN ER (GLUCOPHAGE XR) 500 mg 24 hr tablet Take 3 tablets by mouth daily with breakfast. lisinopril (ZESTRIL) 20 mg tablet Take 1 tablet by mouth once daily. nitroglycerin sublingual (NITROQUICK) 0.4 mg SL tablet Dissolve 1 tablet under the tongue as needed for chest pain. aspirin, enteric coated (ASPIRIN, ENTERIC COATED) 81 mg EC tablet Take 2 tablets by mouth once daily. metoprolol succinate ER (TOPROL XL) 50 mg 24 hr tablet Take 1 tablet by mouth once daily. hydrALAZINE (APRESOLINE) 25 mg tablet Take 0.5 tablets by mouth two times a day. Blood-Glucose Meter (FrontierreUCH ULTRA2 METER) USE DIRECTED (more content not included)...[facility]05-02-2024 Telephone encounter Note* Telephone Encounter - Adela Castanon LPN - 11/12/2023 4:39 PM EDT Left a message for pt to call the office and ask to speak to a nurse. Adela Castanon LPN [facility]-02-[facility] Miscellaneous Notes* Telephone Encounter - Adela Castanon LPN - 11/12/2023 4:39 PM EDT Left a message for pt to call the office and ask to speak to a nurse. Adela Castanon LPN * Telephone Encounter - Kandace Lott MA - 11/11/2023 2:59 PM EDT Left detailed message informing patient Ozempic called in. Advised her to call back and let us knowshe received message. Kandace Lott MA * Telephone Encounter - Mac Olvera MD - 11/11/2023 2:15 PM EDT Sent rx. Call sugars in two weeks to adjust. Also follow up in three months. Again, stop the tradjenta once she starts this one, also see below * Telephone Encounter - Reina Cantu - 11/11/2023 1:52 PM EDT 1st attempt to call pt to schedule, left richa Cantu November 11, 2023 1:52 PM * Telephone Encounter - Kandace Lott MA - 11/11/2023 1:27 PM EDT Patient informed and verbalized understanding. Willing to stop Tradjenta and start injectable. Would like it to go to her [facility] in [place]. Sending to schedulers for Urology consult. Kandace Lott MA * Telephone Encounter - Mac Olvera MD - 11/11/2023 12:30 PM EDT Urine is normal. Refer to urology for her urine issues. Red counts are still up. Likely due to smoking. That is her body's way of telling her she needs to drecrease. Sugars are still high. Would she be willing to stop tradjenta and start a one a week injectable medthat will help with dm and weight loss? documented in this encounterMary [facility] Telephone encounter Note * Telephone Encounter - Ena Villegas MA - 11/12/2023 7:47 AM EDT PA for ozempic came back denied from medicaid. Please see reasoning below and chose alternative Coverage is provided when the member has a history of at least 120 days of therapy with THREE preferred (medication covered by the Plan) medications -Byetta (5 mcg and 10 mcg) Victoza (18 MG/3 ML PEN) Trulicity (0.75 mg, 1.5 mg, 3 mg and 4.5 mg) Farxiga 5 and 10 mg Invokana 100 mg and 300 mg Jardiance 10 and 25 mg Ena Villegas MA [facility]05-02-[facility] Miscellaneous Notes* Telephone Encounter - Ena Villegas MA - 11/12/2023 7:47 AM EDT PA for ozempic came back denied from medicaid. Please see reasoning below and chose alternative Coverage is provided when the member has a history of at least 120 days of therapy with THREE preferred (medication covered by the Plan) medications -Byetta (5 mcg and 10 mcg) Victoza (18 MG/3 ML PEN) Trulicity (0.75 mg, 1.5 mg, 3 mg and 4.5 mg) Farxiga 5 and 10 mg Invokana 100 mg and 300 mg Jardiance 10 and 25 mg Ena Villegas MA documented in this encounterMary [facility]05-[facility] History of Present illness Narrative* Tammie Howell - 11/11/2023 3:18 PM EDT POPULATION HEALTH NAVIGATION OUTREACH Action/I [place] Support: Called pt to schedule an appt in Pain Management. Lvm for pt to call [phone] for scheduling. Reason for Outreach Care Gap/HCC or Scheduling Wellness Visits Care Gaps due: Specialty Scheduling Patient Contacted: Unable or unnecessary to reach patient: Left message IDInteractt message sent Navigation Signature: Tammie Howell November 11, 2023 3:19 PM documented in this encounterMary [facility]05-[facility]-2024 Telephone encounter Note * Telephone Encounter - Kandace Lott MA - 11/11/2023 2:59 PM EDT Left detailed message informing patient Jailene called in. Advised her to call back and let us knowshe received message. Kandace Lott MA [facility] Telephone encounter Note* Telephone Encounter - Mac Olvera MD - 11/11/2023 2:15 PM EDT Sent rx. Call sugars in two weeks to adjust. Also follow up in three months. Again, stop the tradjenta once she starts this one, also see below [facility] Telephone encounter Note* Telephone Encounter - Reina Cantu - 11/11/2023 1:52 PM EDT 1st attempt to call pt to schedule, left vmail Reina Pepe November 11, 2023 1:52 PM [facility] Telephone encounter Note* Telephone Encounter - Kandace Lott MA - 11/11/2023 1:27 PM EDT Patient informed and verbalized understanding. Willing to stop Tradjenta and start injectable. Would like it to go to her [facility] in [place]. Sending to schedulers for Urology consult. Kandace Lott MA [facility] Telephone encounter Note* Telephone Encounter - Mac Olvera MD - 11/11/2023 12:30 PM EDT Urine is normal. Refer to urology for her urine issues. Red counts are still up. Likely due to smoking. That is her body's way of telling her she needs to drecrease. Sugars are still high. Would she be willing to stop tradjenta and start a one a week injectable medthat will help with dm and weight loss? [facility] Telephone encounter Note* Telephone Encounter - Pebbles Gonzalez MA - 11/10/2023 10:04 AM EDT Pt scheduled for bp check. We attempted to get [place] sooner appt than January [place], [place] travel outside of [place]. Unable for sooner cardiology appt. Pebbles Gonzalez MA [facility]04-30-[facility] Miscellaneous Notes* Telephone Encounter - Pebbles Gonzalez MA - 11/10/2023 10:04 AM EDT Pt scheduled for bp check. We attempted to get a sooner appt than January in [place], [place] will not travel outside of [place]. Unable for sooner cardiology appt. Pebbles Gonzalez MA * Telephone Encounter - Pebbles Gonzalez MA - 11/10/2023 9:51 AM EDT Images from the original note were not included. Mac Olvera MD P [facility] Her cardiology appt was to be moved up on last ov. Still having increased chest pain. Computer shut down before I could see her vitals. Needs bp check in one month. documented in this encounterMary [facility] Hospital04-30-2024 Telephone encounter Note * Telephone Encounter - Pebbles Gonzalez MA - 11/10/2023 9:51 AM EDT Images from the original note were not included. Mac Olvera MD P [facility] Her cardiology appt was to be moved up on last ov. Still having increased chest pain. Computer shut down before I could see her vitals. Needs bp check in one month. [facility] History of Present illness Narrative* Mac Olvera MD - 11/09/2023 10:54 AM EDT Patient presents with: 6 Month Exam HPI: Patient presents today for office visit for follow up on previous ov, see below. Was referred back to cardiology. She has an appt in January. Was also treated for a uti. She never had her cardiology appt moved up. Still having frequent chest pain. Sometimes helps. Using frequent nitro. She has not yet done her sleep study. She is not checking sugars. She is having issues with her sugars. She has new glucometer that never works. Still smoking. Discussed tobacco cessation, including risks of continued use. Offered assistance to help quit if patient desires. - probably secondary to her tobacco use and her pascual. Has a positive anxiety and depression. Offered pain management since she attributes her issues to her chronic back pain. Has chronic right shoulder pain. No injury. Has decreased range of motion. Advised her she needs her heart looked at before she has any type of spine intervention. Declines meds for moods. Discussed importance of compliance with recommendations for cardiology and pascual work up. Discussed I could send her to ortho but they are going to want the above evaluated first. She still has chronic dysuria. Last ua was negative. Reluctant to see urology. Discussed that I can recheck a urine. The computer became unavailable through most of the visit due to down time. Labs and xrays were obtained prior to orders being placed. Note was copied and pasted, without alteration from my last ov: Follows with Cardiology. Dr. Delacruz. No new or worsening shortness of breath. Uses Nitro for chest pain. Admitted from her on 05/06 with acute chest pain. Admitted to [facility] for angina Enzymes negative. Had normal stress test. Is not to see cardiology until January. Still having chest pain frequently. Feels similar to when she has her heart issues. Has not been using her nitro because it dissolving. Having chest pain at least weekly. Was found to likely have sleep apnea. Recommended sleep study. Just now following up. She snores. They thought she was apneic in the hospital. Continues on 81 mg asa and plavix. DM: New monitor not working Does not check her sugars Consistent with taking daily medications HTN: Does have headaches and dizziness Denies palpitations No new swelling. Wonders if she has a uti. Some dysuria. Has been there for a week or two. No fever Some nausea. Has thrown up several times. No black or bloody stools. Has some issues sleeping at times. Discussed sleep hygiene issues as well. Latest Ref Rng 08/26/2023 09/08/2023 WBC 3.70 - 11.00 k/uL 8.18 8.70 RBC 3.90 - 5.20 m/uL 5.61 (H) 5.26 (H) Hemoglobin 11.5 - 15.5 g/dL 17.0 (H) 16.1 (H) Hematocrit 36.0 - 46.0 % 51.2 (H) 47.1 (H) MCV 80.0 - 100.0 fL 91.3 89.5 MCH 26.0 - 34.0 pg 30.3 30.6 MCHC 30.5 - 36.0 g/dL 33.2 34.2 RDW-CV 11.5 - 15.0 % 12.2 12.4 Platelet Count 150 - 400 k/uL 156 193 MPV 9.0 - 12.7 fL 10.0 9.9 Neut% % 52.1 58.1 Abs Neut (ANC) 1.45 - 7.50 k/uL 4.26 5.05 Lymph% % 37.0 33.2 Abs Lymph 1.00 - 4.00 k/uL 3.03 2.89 Barton% % 7.7 6.8 Abs Barton <0.87 k/uL 0.63 0.59 Eosin% % 2.1 0.8 Abs Eosin <0.46 k/uL 0.17 0.07 Baso% % 0.9 0.8 Abs Baso <0.11 k/uL 0.07 0.07 Immature Gran % % 0.2 0.3 IMMATURE GRANS (ABS) <0.10 k/uL <0.03 0.03 NRBC /100 WBC 0.0 0.0 Absolute nRBC <0.01 k/uL <0.01 <0.01 DTYPE Auto Auto Protein, Total 6.3 - 8.0 g/dL 6.8 6.7 Albumin 3.9 - 4.9 g/dL 3.9 4.0 Calcium 8.5 - 10.2 mg/dL 9.5 Bilirubin, Total 0.2 - 1.3 mg/dL 0.9 0.8 Alkaline Phosphatase 34 - 123 U/L 56 53 AST 13 - 35 U/L 64 (H) 54 (H) ALT 7 - 38 U/L 70 (H) 60 (H) Glucose 74 - 99 mg/dL 162 (H) BUN 7 - 21 mg/dL 11 Creatinine 0.58 - 0.96 mg/dL 0.67 Sodium 136 - 144 mmol/L 133 (L) Potassium 3.7 - 5.1 mmol/L 4.3 Chloride 97 - 105 mmol/L 102 CO2 22 - 30 mmol/L 23 Anion Gap 9 - 18 mmol/L 8 (L) eGFR >=60 mL/min/1.73m 98 Cholesterol, Total <200 mg/dL 168 Triglyceride <150 mg/dL 158 (H) HDL Cholesterol >39 mg/dL 43 Non HDL Cholesterol <130 mg/dL 125 Fasting Time hrs 12 VLDL Cholesterol <30 mg/dL 32 (H) TC:HDL Ratio <5.10 3.91 LDL Cholesterol <100 mg/dL 93 LDL:HDL Ratio <2.54 2.16 Bilirubin, Conjug <0.2 mg/dL <0.2 Hemoglobin A1C 4.3 - 5.6 % 7.8 (H) Estimated Average Glucose mg/dL 177 Carboxyhemoglobin, Venous 0.0 - 2.0 % 5.9 (H) GGT 6 - 46 U/L 39 HCV RNA by PCR HCV RNA not detected by PCR. HCV RNA not detected by PCR. Hep B Surface Ag Negative Negative Hep A Ab, IgM Negative Negative Hep B Core Ab, IgM Negative Negative Legend: (H) High (L) Low MEDICATIONS: Current Outpatient Medications Medication Sig rosuvastatin (CRESTOR) 20 mg tablet Take 1 tablet by mouth once daily. albuterol HFA (PROVENTIL HFA, VENTOLIN HFA) 90 mcg/actuation inhaler Inhale 2 Puffs as instructed every 6 hours as needed for wheezing/shortness of breath. linaGLIPtin (TRADJENTA) 5 mg tab Take 1 tablet by mouth once daily. metFORMIN ER (GLUCOPHAGE XR) 500 mg 24 hr tablet Take 3 tablets by mouth daily with breakfast. lisinopril (ZESTRIL) 20 mg tablet Take 1 tablet by mouth once daily. nitroglycerin sublingual (NITROQUICK) 0.4 mg SL tablet Dissolve 1 tablet under the tongue as neededfor chest pain. aspirin, enteric coated (ASPIRIN, ENTERIC COATED) 81 mg EC tablet Take 2 tablets by mouth once daily. clopidogrel (PLAVIX) 75 mg tablet Take 1 tablet by mouth once daily. gabapentin (NEURONTIN) 300 mg capsule Take 1 capsule by mouth daily at bedtime for 180 days. metoprolol succinate ER (TOPROL XL) 50 mg 24 hr tablet Take 1 tablet by mouth once daily. hydrALAZINE (APRESOLINE) 25 mg tablet Take 0.5 tablets by mouth two times a day. ipratropium-albuterol (DUONEB) 0.5 mg-3 mg(2.5 mg base)/3 mL nebu Inhale 3 mL as instructed four times daily. Blood-Glucose Meter ([employer] ULTRA2 METER) USE DIRECTED blood sugar diagnostic (BLOOD GLUCOSE TEST) test strip Test blood sugar(s) 1 times daily. Dx: Type 2 DM - Uncontrolled E11.65 Insulin: No Lancets lancets Test blood sugar(s) 1 times daily. Dx: Type 2 DM - Uncontrolled E11.65 Insulin: No No current facility-administered medications for this visit. ALLERGIES: ALLERGIES Allergen Reactions Penicillins Hives, Swelling Nickel Other: See Comments Metal jewelry PAST MEDICAL HISTORY Diagnosis Date Arthritis Chronic back pain Cigarette smoker Colon polyps COPD (chronic obstructive pulmonary disease) (HCC) Coronary artery disease Diabetes (HCC) Diarrhea Essential hypertension Fatty liver ultra sound 2014 Hyperglycemia Hyperlipidemia Obesity Preinfarction syndrome (HCC) Tobacco abuse PAST SURGICAL HISTORY Procedure Laterality Date CABG (2) VEIN GRAFTS & ARTERIAL GRAFT(S 10/17/2015 DELIVERY ONLY , low transverse CHOLECYSTECTOMY HX maybe COLONOSCOPY 11/27/2017 COLONOSCOPY FLX DX W/COLLJ SPEC WHEN PFRMD 05/17/2015 Colonoscopy [facility] outpt ESOPHAGOGASTRODUODENOSCOPY TRANSORAL DIAGNOSTIC 05/17/2015 EGD [facility] outpt HEART SURGERY HX JOINT REPLACEMENT HX ORTHOPEDICS SURGERY HX Left RCR PAST SURGICAL HISTORY OF Bilateral knee arthroscopy PAST SURGICAL HISTORY OF lumbar pain injections PAST SURGICAL HISTORY OF Repair tendon/muscle arm-left rotator cuff surgery TONSILLECTOMY AND ADENOIDECTOMY HX TONSILLECTOMY HX TOTAL KNEE REPLACEMENT right TUBAL LIGATION HX FAMILY HISTORY Problem Relation Age of Onset other (congestive heart failure) Mother other (CKD) Mother other (renal failure) Mother Ischemic Heart Disease Father Lung Cancer Maternal Grandfather Hypertension Daughter lung Social History Tobacco Use Smoking status: Every Day Packs/day: 2.00 Years: 43.00 Additional pack years: 0.00 Total pack years: 86.00 Types: Cigarettes Start date: 04/27/1972 Smokeless tobacco: Former Tobacco comments: started smoking at age 11;cigarette; Amount: 20-39 cigs/day; 1 1/2 - 2 ppd x 43 years; Vaping Use Vaping Use: Never used Substance Use Topics Alcohol use: Yes Alcohol/week: 2.0 - 3.0 standard drinks of alcohol Types: 2 - 3 Cans of Beer (12oz) per week Comment: 2-3 x per week Drug use: No Reviewed current medications, allergies, past medical history, surgical history, family history andsocial history today. REVIEW OF SYSTEMS All other reviewed and negative other than HPI. HEALTH MAINTENANCE: Reviewed health maintenance issues today and recommended the following in detail. BP Controlled (<130/80) Never done Shingrix Vaccine(1 of 2) Never done Pneumococcal Vaccine(2 of 2 - PCV) due on 08/02/2015 Pap Testing due on 12/13/2019 HPV Testing due on 12/13/2019 Mammogram Screening due on 08/21/2021 Diabetic Foot Exam due on 02/05/2023 Covid-19 Vaccine( season) Never done Behavioral Health Screening Never done Urine Albumin:Creatinine Ratio due on 11/01/2023 VITALS: BP 160/85 Pulse 80 Wt 131.1 kg (289 lb) SpO2 93% BMI 46.65 kg/m Last 4 Encounter Wt Readings: Date: Wt: 09/14/2023 130.3 kg (287 lb 4.8 oz) 08/18/2023 130.6 kg (288 lb) 05/06/2023 130.6 kg (288 lb) 11/14/2022 132 kg (291 lb) PHYSICAL EXAMINATION: General appearance: Well appearing, alert, in no acute distress, well-hydrated, well nourished. Skin: Skin color, texture, turgor normal, no suspicious rashes or lesions Head: Normocephalic, no masses, lesions, tenderness or abnormalities Lungs: Lungs clear to auscultation. No wheezing, rhonchi, rales Heart: RRR without murmur, gallop, or rubs. No ectopy Abdomen: Normal abdominal exam, Abdomen soft, non-tender. Bowel sounds normal. No masses, organomegaly Extremities: No deformities, edema, skin discoloration, clubbing or cyanosis. Good capillary refill. Diffucult to assess shoulder. She has issues with any abduction or testing of impingement syndrome. ASSESSMENT/PLAN: 1. Primary hypertension - ICD9: 401.9, ICD10: I10 (primary diagnosis) - elevated on arrival but computer switched off before we could get to that point. Will try and have her come back in for repeat bp 2. Type 2 diabetes mellitus without complication, without long-term current use of insulin (HCC) - ICD9: 250.00, ICD10: E11.9 - check albs. - GABAPENTIN 300 MG CAPSULE - FREESTYLE [place] 3 READER - FREESTYLE [place] 3 SENSOR DEVICE 3. Coronary artery disease involving [place] coronary artery of [place] heart without angina pectoris- ICD9: 414.01, ICD10: I25.10 - again with frequent nitro, back into cardiology. 4. S/P CABG x 2 - ICD9: V45.81, ICD10: Z95.1 - CLOPIDOGREL 75 MG TABLET -stabl3 6. Carotid artery stenosis, asymptomatic, bilateral - ICD9: 433.10, 433.30, ICD10: I65.23 -was unable to check date of last test. Could offer repeat carotid. 7. DDD (degenerative disc disease), lumbar - ICD9: 722.52, ICD10: M51.36 - CONSULT TO PAIN MGT - XR LUMBAR GENERAL 3V AP/LAT/L5-S1 9. Chronic right shoulder pain - ICD9: 719.41, 338.29, ICD10: M25.511, G89.29 - xray. Consider ortho after above done 10. Dysuria - ICD9: 788.1, ICD10: R30.0 - check urine and consider urology 11. Screening breast examination - ICD9: V76.10, ICD10: Z12.39 - MOISES SCREENING Mac Olvera RTO in six months and prn. documented [facility] Telephone encounter Note * Telephone Encounter - Lauryn Cordoba LPN - 11/09/2023 8:58 AM EDT Patient has been identified by name and date of : Yes, Patient phones for refill(s): Requested Prescriptions Pending Prescriptions Disp Refills rosuvastatin (CRESTOR) 20 mg tablet 30 tablet 5 Sig: Take 1 tablet by mouth once daily. Date of last office visit in primary care: 08/18/2023 Date of next office visit in primary care: 11/09/2023 Please advise. Thank you. Lauryn Cordoba LPN. [facility]04-29-[facility] Miscellaneous Notes* Telephone Encounter - Lauryn Cordoba LPN - 11/09/2023 8:58 AM EDT Patient has been identified by name and date of : Yes, Patient phones for refill(s): Requested Prescriptions Pending Prescriptions Disp Refills rosuvastatin (CRESTOR) 20 mg tablet 30 tablet 5 Sig: Take 1 tablet by mouth once daily. Date of last office visit in primary care: 08/18/2023 Date of next office visit in primary care: 11/09/2023 Please advise. Thank you. Lauryn Cordoba LPN. documented in this encounterMary [facility]04-[facility]24 Telephone encounter Note * Telephone Encounter - Pebbles Gonzalez MA - 11/02/2023 8:43 AM EDT Patient has been identified by name and date of : Yes, Provider May Date 10/13/23 Time 8:51 am Patient phones for refill(s): Requested Prescriptions Pending Prescriptions Disp Refills albuterol HFA (PROVENTIL HFA, VENTOLIN HFA) 90 mcg/actuation inhaler 1 Each 3 Sig: Inhale 2 Puffs as instructed every 6 hours as needed for wheezing/shortness of breath. linaGLIPtin (TRADJENTA) 5 mg tab 30 tablet 5 Sig: Take 1 tablet by mouth once daily. Date of last office visit in primary care: 08/18/2023 Date of next office visit in primary care: 11/09/2023 Please advise. Thank you. Pebbles Gonzalez MA. [facility]04-[facility] Miscellaneous Notes* Telephone Encounter - Pebbles Gonzalez MA - 11/02/2023 8:43 AM EDT Patient has been identified by name and date of : Yes, Provider [place] Date 10/13/23 Time 8:51 am Patient phones for refill(s): Requested Prescriptions Pending Prescriptions Disp Refills albuterol HFA (PROVENTIL HFA, VENTOLIN HFA) 90 mcg/actuation inhaler 1 Each 3 Sig: Inhale 2 Puffs as instructed every 6 hours as needed for wheezing/shortness of breath. linaGLIPtin (TRADJENTA) 5 mg tab 30 tablet 5 Sig: Take 1 tablet by mouth once daily. Date of last office visit in primary care: 08/18/2023 Date of next office visit in primary care: 11/09/2023 Please advise. Thank you. Pebbles Gonzalez MA. documented in this encounterMary [facility]03-[facility] History of Present illness Narrative* Miya Rosenbaum RT(R) - 09/30/2023 11:00 AM EDT Radiology Service Progress Note PATIENT NAME: Carol Nolan DATE OF SERVICE: September 30, 2023 TIME: 12:22 PM PATIENT IDENTITY VERIFICATION COMPLETED USING TWO (2) IDENTIFIERS: Name and Date of confirmedby patient verbally. FALL SCREENING: Has the patient had 2 falls in the last year or 1 fall with injury or currently using an Ambulatory Assistive Device (Walker, Cane, Wheelchair, Crutches, etc.)? No PATIENT GENDER DATA: Female. status: : No status: NO. PATIENT RELEVANT IMPLANT DATA REVIEWED: Yes PATIENT PRESENTS WITH AN IMPLANTABLE OR ATTACHED HAIRSPRING SETTER: No RADIOLOGY DEPARTMENT: CT; Exam(s) Completed: Chest PERIPHERAL IV DATA: Not applicable SIGNED BY: RT Jolly(R) September 30, 2023 12:22 PM documented in this encounterMary [facility]03-06-2024 Miscellaneous Notes* Telephone Encounter - Ro Royal LPN - 09/16/2023 8:02 AM EST Recheck urine? documented in this [facility]03-05-2024 Miscellaneous Notes* Telephone Encounter - Lauryn Cordoba LPN - 09/15/2023 8:54 AM EST Patient has been identified by name and date of : Yes, Patient phones for refill(s): Requested Prescriptions Pending Prescriptions Disp Refills metFORMIN ER (GLUCOPHAGE XR) 500 mg 24 hr tablet 90 tablet 11 Sig: Take 3 tablets by mouth daily with breakfast. Date of last office visit in primary care: 08/18/2023 Date of next office visit in primary care: 11/09/2023 Please advise. Thank you. Lauryn Cordoba LPN. documented in this encounterMary [facility]03-04-2024 Instructions* Patient Instructions* Shanita Polk APRN.[employer]OCIATE - 09/14/2023 10:57 AM EST SMOKING CESSATION EDUCATION Why do I need to know about the health risks of cigarette smoking? Cigarette smoking is the most preventable cause of illness and . Cigarettes are filled with nicotine, which acts like a poison in your body. What are the health risks of cigarette smoking? You may have breathing problems that make it difficult for you to do daily activities or play sports. You have a higher risk of bone fractures because smoking can cause osteoporosis (brittle bones). If you fall asleep with a lit cigarette, you can start a fire. Cigarette smoking can also cause the following health problems: Cancer: Heart and blood vessel disease: The nicotine in tobacco causes an increase in your heart rate and blood pressure. Nicotine also causes your blood vessels to narrow. This can lead to blood clots in your heart or brain and cause a heart attack or stroke. Cigarette smoke has carbon monoxide init. This can decrease the amount of oxygen flowing to your heart and other organs. Lung disease: The chemicals in cigarette smoke can damage your lungs. This causes a buildup of dirtand waste products in your lungs. Many people who smoke have a long-term cough as a result. Cigarette smoking may also cause long-term lung infections or diseases, such as asthma, emphysema, or chronic bronchitis. You are also at higher risk for respiratory illnesses, such as colds or pneumonia. Gastrointestinal disease: Cigarette smoking increases the amount of acid in your stomach. This can cause an ulcer or gastric reflux. Women and smoking: You have a higher risk of heart and blood vessel disease if you smoke and take control pills. The risk is more serious is you are 35 years or older. Why should I quit smoking? Your health will improve and your risks for many diseases will decrease.Your breath, clothes, and hair will no longer smell like smoke. Tobacco will no longer stain your teeth. Tobacco smoke is dangerous to others. If you quit, you will decrease the risks to those aroundyou, such as your children or family members. Where can I go for support and more information? There are many ways to quit smoking. Some may workbetter for you than others. Your caregiver can help you find the best plan to quit. Smokefree.gov Web Address: www.smokefree.gov Phone: [place] [employer] Web Address: www.lung.org [address] [place] [address] Rileyjennifer. [place], [place] Phone: Phone: [facility] Smoking Cessation Program [email or web address] CT Lung Screen Results The CT scan that you will have done will show if you have any nodules (small spots) in your lungs that are suspicious for cancer. Around 90% of the patients who have this scan done are found to have at least one nodule. Most nodules are benign (not cancer) and of no harm to you at all. A specialistwill make a scientific evaluation about whether or not a nodule is worrisome based on its size and shape. The radiologist who will read your scan will put it into one of four categories: LUNG-RADS Category Description Overall Probability of Malignancy Recommended Follow-Up 1 Negative No nodules and definitely benign (non-cancerous nodules) Essentially 0. 1 Year - Follow-up Low dose CT 2 Benign Appearance or Behavior Nodules with a very low likelihood of becoming cancer due to size or lack of growth Less than 1% 1 Year - Follow-up Low dose CT 3 Probably Benign Probably benign finding, short term follow-up recommended 1 to 2% 6 Months - Follow-up Low dose CT 4 Suspicious Findings for which additional diagnostic testing and/or biopsy is recommended Will be calculated based on nodule characteristics. Dependent on what is seen on the exam. (3 month follow-up CT, PET-CT, or biopsy) At times, we may see something outside of the lungs on the scan that could be a health concern. Below are some of the most common findings: S Clinically Significant or Potentially Clinically Significant Findings (non lung cancer) Referral or additional imaging/labs depending on result. Approximately 10% of people receive this result. Coronary Artery Calcifications (Moderate or Severe) - Referral to cardiology for further work-up and recommendations. Thyroid Nodule - TSH level and Thyroid Ultrasound dependent on size, referral to endocrinology. Adrenal Nodule - blood work and referral to endocrinology. Others Lung Cancer Screening hotline: 177.280.4668 Lung Cancer Screening [phone] Billing Questions: or [email or web address] Specialist Providers: (Silvia Chacon CNP; Trish Whitfield PA-C; Ammy Hsu SHIFT PRODUCTION ASSOCIATE; Sofi Royal CNP, Lora Rayo SHIFT PRODUCTION ASSOCIATE; Miya Aviles SHIFT PRODUCTION ASSOCIATE; Shelli Mac PA-C; Shanita Polk CNP; Paty Hutchinson CNP; Iveth Cruz PA-C; Olinda Smith SHIFT PRODUCTION ASSOCIATE; So Carrasquillo [facility]; Delicia Vines [facility]): [phone] documented in this encounterMary [facility]03-04-[facility]24 History of Present illness Narrative* Shanita Polk APRN.CNP - 09/14/2023 10:35 AM EST Images from the original note were not included. LUNG SCREENING VISIT PRIMARY CARE PHYSICIAN: Mac Olvera MD PULMONARY PROVIDER: none Results will be communicated via letter or electronic record if applicable. Visit Delivery: In Person Patient Visit Type: New to [place] Current or Ex-smoker? [Current Exam Type: annual LDCT, 01/22/2021 LDCT done at [facility], images available Number of Pack Years: 52 Current smoker (=0) The patient's smoking history is similar to prior year shared decision visit. The reason for the discrepancy is NA REQUESTER: The referring provider advised the patient to have screening. HISTORY OF PRESENT ILLNESS: Carol Nolan is a 62 year old Active smoker who presents for lung screening. Nauseated over the last couple weeks. Respiratory symptoms include: SOB: Yes, walking, bad back does not do lifting or pushing Chest tightness: No Coughing: Yes: With mucus Clear, thick, sometimes colored, sometimes so hard triggers vomiting and gets excess mucus out Hemoptysis: No Wheezing: Yes, at night Fever/Chills: No Recent Respiratory Infection: No Unintentional weight loss: No Last 6 Encounter Wt Readings: Date: Wt: 09/14/2023 130.3 kg (287 lb 4.8 oz) 08/18/2023 130.6 kg (288 lb) 05/06/2023 130.6 kg (288 lb) 11/14/2022 132 kg (291 lb) 10/31/2022 132.4 kg (291 lb 12.8 oz) 09/30/2022 133.8 kg (295 lb) ECOG PERFORMANCE STATUS: 3- Capable of only limited selfcare, confined to bed/chair > 50% of waking hrs. Due to back issues, cannot tolerate much activity. Modified Medical [employer] [place] Dyspnea Scale (MMRC) I stop for breath after walking about 100 yards or after a few minutes on level ground 3 PAST MEDICAL HISTORY Diagnosis Date Arthritis Chronic back pain Cigarette smoker Colon polyps COPD (chronic obstructive pulmonary disease) (HCC) Coronary artery disease Diabetes (HCC) Diarrhea Essential hypertension Fatty liver ultra sound 2014 Hyperglycemia Hyperlipidemia Obesity Preinfarction syndrome (HCC) Tobacco abuse PAST SURGICAL HISTORY Procedure Laterality Date CABG (2) VEIN GRAFTS & ARTERIAL GRAFT(S 10/17/2015 DELIVERY ONLY , low transverse CHOLECYSTECTOMY HX maybe COLONOSCOPY 11/27/2017 COLONOSCOPY FLX DX W/COLLJ SPEC WHEN PFRMD 05/17/2015 Colonoscopy [facility] outpt ESOPHAGOGASTRODUODENOSCOPY TRANSORAL DIAGNOSTIC 05/17/2015 EGD [facility] outpt HEART SURGERY HX JOINT REPLACEMENT HX ORTHOPEDICS SURGERY HX Left RCR PAST SURGICAL HISTORY OF Bilateral knee arthroscopy PAST SURGICAL HISTORY OF lumbar pain injections PAST SURGICAL HISTORY OF Repair tendon/muscle arm-left rotator cuff surgery TONSILLECTOMY AND ADENOIDECTOMY HX TONSILLECTOMY HX TOTAL KNEE REPLACEMENT right TUBAL LIGATION HX FAMILY HISTORY Problem Relation Age of Onset other (congestive heart failure) Mother other (CKD) Mother other (renal failure) Mother Ischemic Heart Disease Father Lung Cancer Maternal Grandfather Hypertension Daughter lung lisinopril (ZESTRIL) 20 mg tablet Take 1 tablet by mouth once daily. nitroglycerin sublingual (NITROQUICK) 0.4 mg SL tablet Dissolve 1 tablet under the tongue as neededfor chest pain. aspirin, enteric coated (ASPIRIN, ENTERIC COATED) 81 mg EC tablet Take 2 tablets by mouth once daily. clopidogrel (PLAVIX) 75 mg tablet Take 1 tablet by mouth once daily. gabapentin (NEURONTIN) 300 mg capsule Take 1 capsule by mouth daily at bedtime for 180 days. metoprolol succinate ER (TOPROL XL) 50 mg 24 hr tablet Take 1 tablet by mouth once daily. hydrALAZINE (APRESOLINE) 25 mg tablet Take 0.5 tablets by mouth two times a day. rosuvastatin (CRESTOR) 20 mg tablet Take 1 tablet by mouth once daily. linaGLIPtin (TRADJENTA) 5 mg tab Take 1 tablet by mouth once daily. albuterol HFA (PROVENTIL HFA, VENTOLIN HFA) 90 mcg/actuation inhaler Inhale 2 Puffs as instructed every 6 hours as needed for wheezing/shortness of breath. metFORMIN ER (GLUCOPHAGE XR) 500 mg 24 hr tablet Take 3 tablets by mouth daily with breakfast. Blood-Glucose Meter ([employer] ULTRA2 METER) USE DIRECTED blood sugar diagnostic (BLOOD GLUCOSE TEST) test strip Test blood sugar(s) 1 times daily. Dx: Type 2 DM - Uncontrolled E11.65 Insulin: No Lancets lancets Test blood sugar(s) 1 times daily. Dx: Type 2 DM - Uncontrolled E11.65 Insulin: No ipratropium-albuterol (DUONEB) 0.5 mg-3 mg(2.5 mg base)/3 mL nebu Inhale 3 mL as instructed four times daily. ALLERGIES Allergen Reactions Penicillins Hives, Swelling Nickel Other: See Comments Metal jewelry The medications and allergies were reviewed and reconciled for this patient and deemed current. Lung Cancer Risk Factors: 1.Tobacco Use: Start Age 11, Quit Age: N/A, Average packs per day 1, Pack Years 50 2. Passive Smoke Exposure: Yes, as a Child and as an Adult 3. Personal hx of malignancy: No, Type of Cancer: 4. Significant exposures (1 year or more of exposure): None, 5. Race: White 6. Education: Less than High School 7. BMI:Body mass index is 46.37 kg/m . Patient-entered Height: 5'6 Patient-entered Weight: 287 pounds 8. COPD: Yes 9. Pneumonia in the past 5 years: No 10. Is there a history of lung cancer in a first degree relative? No 11. Is there a history of lung cancer in a non-first degree relative? Yes 12. Is there a history of any other cancer in a first degree relative? No Health Maintenance Immunization History Administered Date(s) Administered influenza (IIV3) vaccine, trivalent (AFLURIA, FLULAVAL, FLUVIRIN, FLUZONE) 05/31/2015 influenza (IIV3) vaccine, trivalent, PF (AFLURIA, FLUARIX, FLULAVAL, FLUVIRIN, FLUZONE) 06/11/2016 06/18/2017 influenza (IIV4) vaccine, age 6 mo - 64 yr, quadrivalent (AFLURIA, FLULAVAL, FLUZONE) 05/31/2015 influenza (IIV4) vaccine, age 6 mo - 64 yr, quadrivalent, PF (AFLURIA, FLUARIX, FLULAVAL, FLUZONE) 08/01/2014 pneumococcal polysaccharide (PPV23) vaccine, 23 valent (PNEUMOVAX 23) 08/02/2014 tetanus diphtheria pertussis (Tdap) vaccine, age 7+ yr (ADACEL, BOOSTRIX) 02/05/2018 Colonoscopy: 11/28/2022 Mammogram: 08/21/2020 DATA REVIEW I have directly visualized the testing documented: 01/22/2021 LDCT at [facility] MARY nodule ~ 3 mm RUL nodule ~4 mm LLL nodule Prior Imaging: Last XR Chest - Impression Only XR CHEST 2V FRONTAL/LAT Exam End: 02/28/2019 10:13 AM (Final result) Impression: IMPRESSION: Stable chest. No acute cardiopulmonary process. Enterprise Data Architect: APARNA Transcribe Date/Time: Feb 28 2019 2:21P... Pulmonary Function Testing: SPIROMETRY WITH DILATOR IF OBSTRUCTED ([id number]) - ordered on 03/02/19 [facility] [address] [place] [address] [place] [address] Test Date: 2019-03-02 Pat Name: CAROL NOLAN Department: Room: Gender: Female Burlapper: : 1960 Requested By: Order Number: [id number] Reading MD: Raciel Vega Interpretive Statements ATS acceptability and repeatability standards for spirometry met. 4 puffs of albuterol (360mcg) delivered by MDI via valved holding chamber, HR pre 91, HR post 91. Medications and allergies were reviewed for possible drug interactions per policy MM-102. No Contraindications or sensitivities were noted. IMPRESSION: Spirometry shows no obstruction. The reduced FVC suggests restriction. There is no significant bronchodilator response. Recommend lung volumes if clinically indicated. Electronically Signed On 03-03-2019 7:48:05 EDT by Raciel Vega [facility] [address] [place], [place] [address] PFT Lab Report Name: CAROL NOLAN ID: [id number] Date: 03/02/19 Physician: Joan MUSTAFA Age: 58 Height(in): 66.0 Weight(lb): 289 Gender: Female Race: Diagnosis: Medication Set 1: Dyspnea Rest: No Dyspnea Exercise: No Cough: No Persistent: No Productive (cc): Smoker: No How Long: Stopped: Cigarettes: No Burlapper: Michel Bhakta RCP Temp: 27 PBar: 737 PF Reference: ######## Spirometry Hb: gm/dL Ref Pre Pre Post Post Post Lexie % Ref Lexie % Ref % Chg FVC Liters 3.57 2.67 75 2.78 78 4 FEV1 Liters 2.76 1.90 69 2.06 75 9 FEV1/FVC % 78 71 74 QEF55-03% L/sec 2.48 1.19 48 1.52 62 28 WifWSV35-28 L/sec 2.71 1.19 44 1.91 70 60 PEF L/sec 6.63 5.28 80 5.34 80 1 RJK031% Sec 9.94 9.21 -7 MVV L/min 111 f BPM Lung Volumes TLC Liters 5.37 VC Liters 3.57 IC Liters 2.22 FRC N2 Liters 3.05 ERV Liters 1.11 RV Liters 2.09 RV/TLC % 39 Diffusing Capacity DLCO mL/mmHg/min 22.4 DL Adj mL/mmHg/min 22.4 DLCO/VA mL/mHg/min/L 4.35 DL/VA Adj mL/mHg/min/L 4.35 VA Liters 5.15 IVC Liters BHT Sec Resistance Raw cmH2O/L/sec 2.06 sGaw L/s/cmH2O/L 0.250 Respiratory Muscle Force PI max cmH2O 73 PE max cmH2O 138 PHYSICAL EXAM: BP 138/86 Pulse 63 Resp 20 Wt 130.3 kg (287 lb 4.8 oz) SpO2 98% BMI 46.37 kg/m Deferred ASSESSMENT and RECOMMENDATIONS: 1. Screening for lung cancer: Six year risk for lung cancer: 4.54% [email or web address] I have determined that the patient is eligible for a low dose CT based on age, absence of signs or symptoms of lung cancer, and total pack years: Yes. The patient and I engaged in shared decision making, including the use of one or more decision aids, to include benefits, harms, follow-up diagnostic testing, over-diagnosis, false positive rate, andtotal radiation exposure. The patient understands and feels comfortable with it: Yes. The patient was counseled on the importance of adherence to annual LDCT lung cancer screening, impact of comorbidities and ability or willingness to undergo diagnosis and treatment. The patient understands and feels comfortable with it:Yes. 2. Nicotine dependence: The patient was counseled on the importance of smoking cessation if currentsmoker and, if appropriate, offered additional tobacco cessation counseling services - Smoking Cessation Counseling. SMOKING CESSATION COUNSELING Smoking cessation methods including Nicotine Replacement Therapies and Behavior Modification were discussed with the patient and assistance offered. Pt reports she feels funny if she uses nicotine replacement. She has tried reduction and she felt it made her smoke more. The medical conditions adversely affected by cigarette use include:COPD, Emphysema, and Lung Cancer. The patient is currently not ready to quit. I personally spent 3 minutes in counseling. The time spent in smoking cessation counseling is exclusive of any other counseling during this visit. Shanita Polk APRN.SHIFT PRODUCTION ASSOCIATE NPI #: September 14, 2023 10:42 AM documented in this encounterMary [facility]02-28-[facility]24 Miscellaneous Notes* Telephone Encounter - Carlos Cantu PA-C - 09/09/2023 8:47 AM EST Previously done Shawn Cantu PA-C * Telephone Encounter - Lauryn Cordoba LPN - 09/08/2023 10:45 AM EST Patient has been identified by name and date of : Yes, Patient phones for refill(s): Requested Prescriptions Pending Prescriptions Disp Refills lisinopril (ZESTRIL) 20 mg tablet 30 tablet 5 Sig: Take 1 tablet by mouth once daily. Date of last office visit in primary care: 08/18/2023 Date of next office visit in primary care: 11/09/2023 Please advise. Thank you. Lauryn Cordoba LPN. documented in this encounterMary Rutan Hospital02-27-2024 Miscellaneous Notes* Telephone Encounter - Lauryn Baldwin APRN.CNS - 09/08/2023 4:29 PM EST UCampushart message sent regarding fatty liver, recommended dietary change documented in this encounterMary Rutan Hospital02-27-2024 Miscellaneous Notes* Telephone Encounter - Lauryn Baldwin APRN.CNS - 09/08/2023 2:09 PM EST Lisinopril reordered as requested. MyChart message sent to her regarding her CBC and CMP. Both slightly improved. documented in this encounterMary Rutan Hospital02-27-2024 History of Present illness Narrative* Zainab Carreon RDMS - 09/08/2023 11:30 AM EST Radiology Service Progress Note PATIENT NAME: Carol Nolan DATE OF SERVICE: September 08, 2023 TIME: 11:58 AM PATIENT IDENTITY VERIFICATION COMPLETED USING TWO (2) IDENTIFIERS: Name and Date of confirmedby patient verbally. FALL SCREENING: Has the patient had 2 falls in the last year or 1 fall with injury or currently using an Ambulatory Assistive Device (Walker, Cane, Wheelchair, Crutches, etc.)? Yes, Patient High Riskfor Falls What interventions were put in place to prevent falls during this visit? Offered Assistance with Transfers/Clothing and Increased Observations by Caregivers PATIENT GENDER DATA: Female. status: : No status: NO. PATIENT RELEVANT IMPLANT DATA REVIEWED: Not Applicable PATIENT PRESENTS WITH AN IMPLANTABLE OR ATTACHED HAIRSPRING SETTER: No RADIOLOGY DEPARTMENT: Ultrasound PERIPHERAL IV DATA: Not applicable SIGNED BY: Zainab Carreon RDMS September 08, 2023 11:58 AM documented in this encounterMary Rutan Hospital02-15-2024 Miscellaneous Notes* Telephone Encounter - Ro Royal LPN - 08/27/2023 9:43 AM EST Patient notified of below and verbalizes understanding. States that she will set up US of liver. * Telephone Encounter - Mac Olvera MD - 08/27/2023 8:57 AM EST Sugars are better but not yet at goal. Is she willing to increase her metformin to four a day. She had used it at that level in the past Liver is still up. We had ordered additional work up to look at that in the last year but she did not do it. Recommend liver us and repeat labs in two week. Red count is up, likely. due to smoking. Needs to decrease and recheck labs in two weeks. We had ordered labs to work up that up in the past and she did not do it. Re ordered them to also do in two weeks. documented in this encounterMary Rutan Hospital02-06-2024 History of Present illness Narrative* Mac Olvera MD - 08/18/2023 4:00 PM EST Patient presents with: Follow Up HPI: Patient presents today for office visit for follow up. Follows with Cardiology. Dr. Delacruz. No new or worsening shortness of breath. Uses Nitro for chest pain. Admitted from her on 05/06 with acute chest pain. Admitted to [facility] for angina Enzymes negative. Had normal stress test. Is not to see cardiology until January. Still having chest pain frequently. Feels similar to when she has her heart issues. Has not been using her nitro because it dissolving. Having chest pain at least weekly. Was found to likely have sleep apnea. Recommended sleep study. Just now following up. She snores. They thought she was apneic in the hospital. Continues on 81 mg asa and plavix. DM: New monitor not working Does not check her sugars Consistent with taking daily medications HTN: Does have headaches and dizziness Denies palpitations No new swelling. Wonders if she has a uti. Some dysuria. Has been there for a week or two. No fever Some nausea. Has thrown up several times. No black or bloody stools. Has some issues sleeping at times. Discussed sleep hygiene issues as well. MEDICATIONS: Current Outpatient Medications Medication Sig aspirin, enteric coated (ASPIRIN, ENTERIC COATED) 81 mg EC tablet Take 2 tablets by mouth once daily. clopidogrel (PLAVIX) 75 mg tablet Take 1 tablet by mouth once daily. gabapentin (NEURONTIN) 300 mg capsule Take 1 capsule by mouth daily at bedtime for 180 days. lisinopril (ZESTRIL) 20 mg tablet Take 1 tablet by mouth once daily. metoprolol succinate ER (TOPROL XL) 50 mg 24 hr tablet Take 1 tablet by mouth once daily. hydrALAZINE (APRESOLINE) 25 mg tablet Take 0.5 tablets by mouth two times a day. rosuvastatin (CRESTOR) 20 mg tablet Take 1 tablet by mouth once daily. linaGLIPtin (TRADJENTA) 5 mg tab Take 1 tablet by mouth once daily. nitroglycerin sublingual (NITROQUICK) 0.4 mg SL tablet Dissolve 1 tablet under the tongue as neededfor chest pain. albuterol HFA (PROVENTIL HFA, VENTOLIN HFA) 90 mcg/actuation inhaler Inhale 2 Puffs as instructed every 6 hours as needed for wheezing/shortness of breath. metFORMIN ER (GLUCOPHAGE XR) 500 mg 24 hr tablet Take 3 tablets by mouth daily with breakfast. Blood-Glucose Meter (FrontierreUCH ULTRA2 METER) USE DIRECTED blood sugar diagnostic (BLOOD GLUCOSE TEST) test strip Test blood sugar(s) 1 times daily. Dx: Type 2 DM - Uncontrolled E11.65 Insulin: No Lancets lancets Test blood sugar(s) 1 times daily. Dx: Type 2 DM - Uncontrolled E11.65 Insulin: No ipratropium-albuterol (DUONEB) 0.5 mg-3 mg(2.5 mg base)/3 mL nebu Inhale 3 mL as instructed four times daily. No current facility-administered medications for this visit. ALLERGIES: ALLERGIES Allergen Reactions Penicillins Hives, Swelling Nickel Other: See Comments Metal jewelry PAST MEDICAL HISTORY Diagnosis Date Arthritis Chronic back pain Cigarette smoker Colon polyps COPD (chronic obstructive pulmonary disease) (HCC) Coronary artery disease Diabetes (HCC) Diarrhea Essential hypertension Fatty liver ultra sound 2014 Hyperglycemia Hyperlipidemia Obesity Preinfarction syndrome (HCC) Tobacco abuse PAST SURGICAL HISTORY Procedure Laterality Date CABG (2) VEIN GRAFTS & ARTERIAL GRAFT(S 10/17/2015 DELIVERY ONLY , low transverse CHOLECYSTECTOMY HX maybe 1989' COLONOSCOPY 11/27/2017 COLONOSCOPY FLX DX W/COLLJ SPEC WHEN PFRMD 05/17/2015 Colonoscopy [facility] outpt ESOPHAGOGASTRODUODENOSCOPY TRANSORAL DIAGNOSTIC 05/17/2015 EGD [facility] outpt HEART SURGERY HX JOINT REPLACEMENT HX ORTHOPEDICS SURGERY HX Left RCR PAST SURGICAL HISTORY OF Bilateral knee arthroscopy PAST SURGICAL HISTORY OF lumbar pain injections PAST SURGICAL HISTORY OF Repair tendon/muscle arm-left rotator cuff surgery TONSILLECTOMY AND ADENOIDECTOMY HX TONSILLECTOMY HX TOTAL KNEE REPLACEMENT right TUBAL LIGATION HX FAMILY HISTORY Problem Relation Age of Onset other (congestive heart failure) Mother other (CKD) Mother other (renal failure) Mother Ischemic Heart Disease Father Hypertension Daughter lung Cancer Maternal Grandfather Social History Tobacco Use Smoking status: Every Day Packs/day: 2.00 Years: 43.00 Additional pack years: 0.00 Total pack years: 86.00 Types: Cigarettes Start date: 04/27/1972 Smokeless tobacco: Former Tobacco comments: started smoking at age 11;cigarette; Amount: 20-39 cigs/day; 1 1/2 - 2 ppd x 43 years; Vaping Use Vaping Use: Never used Substance Use Topics Alcohol use: Yes Alcohol/week: 2.0 - 3.0 standard drinks of alcohol Types: 2 - 3 Cans of Beer (12oz) per week Comment: 2-3 x per week Drug use: No Reviewed current medications, allergies, past medical history, surgical history, family history andsocial history today. REVIEW OF SYSTEMS All other reviewed and negative other than HPI. HEALTH MAINTENANCE: Reviewed health maintenance issues today and recommended the following in detail. BP Controlled (<130/80) Never done RSV Vaccine(1 - 1-dose 60+ series) Never done Pap Testing due on 12/13/2019 HPV Testing due on 12/13/2019 Mammogram Screening -ordered. Lung Cancer Screening -discussed HbA1C due on 01/30/2023 Influenza Vaccine-done VITALS: BP 112/74 Pulse 65 Ht 167.6 cm (5' 6) Wt 130.6 kg (288 lb) BMI 46.48 kg/m Last 4 Encounter Wt Readings: Date: Wt: 05/06/2023 130.6 kg (288 lb) 11/14/2022 132 kg (291 lb) 10/31/2022 132.4 kg (291 lb 12.8 oz) 09/30/2022 133.8 kg (295 lb) PHYSICAL EXAMINATION: General appearance: Well appearing, alert, in no acute distress, well-hydrated, well nourished. Skin: Skin color, texture, turgor normal, no suspicious rashes or lesions Head: Normocephalic, no masses, lesions, tenderness or abnormalities Lungs: Lungs clear to auscultation. No wheezing, rhonchi, rales Heart: RRR without murmur, gallop, or rubs. No ectopy Abdomen: Normal abdominal exam, Abdomen soft, non-tender. Bowel sounds normal. No masses, organomegaly Extremities: No deformities, edema, skin discoloration, clubbing or cyanosis. Good capillary refill. ASSESSMENT/PLAN: 1. Chest pain, unspecified type - ICD9: 786.50, ICD10: R07.9 (primary diagnosis) - stress negative however she states pain continues to be similar to previous angina. Red flags forre-assessment reviewed with patient in detail. - refilled nitro. Suggested she return to see cardiology soon. - ECG COMPLETE-sinus elena. Shows st t wave changes in anterior leads which has been noted in the past - CONSULT TO CARDIOLOGY 2. Type 2 diabetes mellitus without complication, without long-term current use of insulin ([facility]) - ICD9: 250.00, ICD10: E11.9 - check labs. - CBC + DIFF - COMP METABOLIC PANEL - LIPID PANEL BASIC - HGB A1C 3. NSVT (nonsustained ventricular tachycardia) ([facility]) - ICD9: 427.1, ICD10: I47.29 - stablel 4. Other hyperlipidemia - ICD9: 272.4, ICD10: E78.49 -as above 5. Primary hypertension - ICD9: 401.9, ICD10: I10 - Controlled - Continue current medications 6. Coronary artery disease involving upper [place] coronary artery of upper [place] heart without angina pectoris- ICD9: 414.01, ICD10: I25.10 - apparently nitro is outdated. Use prn. - NITROGLYCERIN 0.4 MG SUBLINGUAL TABLET 7. Morbid obesity (HCC) - ICD9: 278.01, ICD10: E66.01 - stable. 8. Carotid artery stenosis, asymptomatic, bilateral - ICD9: 433.10, 433.30, ICD10: I65.23 - consider repeat at some point 9. Dysuria - ICD9: 788.1, ICD10: R30.0 acute - UA positive for tanvi esterase - Patient education for prevention given - UA DIP, URINE (POC) Send culture, Macrobid. 10. ASHD (arteriosclerotic heart disease) - ICD9: 414.00, ICD10: I25.10 - NITROGLYCERIN 0.4 MG SUBLINGUAL TABLET 11. Tobacco use - ICD9: 305.1, ICD10: Z72.0 - Cessation encouraged. - Physiologic and physical aspects of tobacco addiction as well as strategies for quitting were discussed. - Counseling was given focusing on the harmful effects of this addiction especially given the patient's medical condition(s) which will be worsened because of the chemicals in tobacco. - CONSULT LUNG CANCER SCREENING CLINIC 12. PASCUAL (obstructive sleep apnea) - ICD9: 327.23, ICD10: G47.33 - Set up for testing. - HOME SLEEP APNEA TEST (HSAT) Mac Olvera MD documented in this encounterMary [facility]12-05-2023 Miscellaneous Notes* Telephone Encounter - Adela Castanon LPN - 06/16/2023 8:10 AM EST Pt would like to come in to get lab work done this week. Her will also be coming in for labwork. Please advise pt when the lab orders are in place. Patient has been identified by name and date of : Yes, Provider Dr. Olvera Date 06/16/23 Time 8:11 am Patient phones for refill(s): Requested Prescriptions Pending Prescriptions Disp Refills aspirin, enteric coated (ASPIRIN, ENTERIC COATED) 81 mg EC tablet 60 tablet 5 Sig: Take 2 tablets by mouth once daily. Date of last office visit in primary care: 05/06/2023 Date of next office visit in primary care: 11/08/22 Last 2 Encounter Wt Readings: Date: Wt: 05/06/2023 130.6 kg (288 lb) 11/14/2022 132 kg (291 lb) Previous labs/tests for medication: Not applicable Thank you. Adela Castanon LPN. documented in this encounterMary [facility] Hospital10-30-2023 History of Present illness Narrative* Ro Royal LPN - 05/11/2023 2:42 PM EDT TRANSITION CARE MANAGEMENT (TCM) INITIAL CONTACT [facility] Provider Action/FYI: Needs hospital follow up with Dr Olvera 40 minutes please. Has she scheduled with cardio yet? Advised to have sleep study. Initial contact with patient post discharge, did not reach patient. Patient identified by name and . TRANSITION CARE MANAGEMENT INITIAL OUTREACH DOCUMENTATION: No flowsheet data found. SUMMARY: -Pt discharged from [facility] on 05/07/23. -Admitted for: chest pain Do you have a hospital follow up appointment with your PCP? No. Assist patient with follow-up appointment within 1-14 calendar days from discharge date. If patient prefers not to schedule follow-up appointment at this time, notify PCP. MEDICATIONS: Many patients have questions or concerns about their medications once they are home. Were you prescribed any new medications? If yes, what are those medications? Pantoprazole Were you told to hold any medications? No Were any of your medications discontinued? No Medical records from recent hospitalization: Placed for provider to review documented in this encounterMary [facility]an Hospital10-25-2023 History and physical note Author Harmony Argueta [facility] May 06, 2023 6:10pm Note Date/Time May 06, 2023 5 :05pm [facility] Medical Records Department [address] [place] [id number] H&P Exam - Hospitalist 05/06/23 1703 MR#: [id number] Acct: [id number] Name: CAROL NOLAN Rep #:[id number] 3 : 1960 62 From: Harmony Argueta DO PCP: Dr. Mac Olvera MD Status:ADM I NO Location: [place] [address] HPI - General General Date of Admission: 05/06/23 Date of Service: 05/06/23 Chief Complaint: Chest pain HPI Narrative CAROL NOLAN, is a 62 F who presented urgency department at [facility] with chest pain that has been ongoing on and off for the last 2 weeks. She states she notices that it is worse with exertion and movement of any kind. She does not report that it significantly improves with rest however. She states she has chronic shortness of breath and it may or may not worsen and someintermittent nausea as well. She still smokes. She reported that she had a cardiology appointment soon however had to be rescheduled. She has not called her [employer]m consultant with regards to her symptoms that she has been experiencing. She saw her primary care physician today who sent her to the emergency department. She states she currently is having some pain however it is nonradiating. She indicates the pain never radiates and seems to be in the central chest area. She states she has had symptoms on and off since her CABG and has required a stent placement since her CABG in the RCA. EF previously hasbeen normal at 65%. She still smokes quite heavily. Heart score was 5. Vital signs on presentation: Temperature 97.5, heart rate 76, initial blood pressure was 196/88 with a repeat at 151/88, respiratory was 19 and oxygen saturations were 96% on room air. Her CBC shows chronic erythrocytosis. But isotherwise unremarkable. I suspect this is related to her chronic tobacco abuse. Her D-dimer was normal when corrected for age. Her chemistry panel was unremarkable. Serum glucose was 151. Troponin initially was 8 with a repeat of6. EKG shows normal sinus rhythm with normal intervals and no ST-T wave changesconcerning for acute ischemia. Given her heart score and history it was felt to be prudent to admit her for rule out stress test. [facility] Medical History Atherosclerotic heart disease of upper [place] coronary artery with unstable angina pectoris Chest pain Diabetes mellitus, type II Dyspnea on minimal exertion Encounter for screening for malignant neoplasm of lung in current smoker with 30pack year history or greater Hyperlipidemia Hypertension Tobacco use disorder Tobacco use disorder, continuous Home Medications nitroglycerin 0.4 mg sublingual tablet 0.4 mg sublingual Q5M PRN CHEST PAIN 05/15/15 [History Last Taken 06/16/17 06:00] gabapentin 300 mg capsule 300 mg PO QHS NEUROPATHY 01/17/16 [History Last Taken 05/05/23] albuterol sulfate 90 mcg/actuation aerosol inhaler 2 puff inhalation Q4H PRN SHORTNESS OF BREATH/WHEEZING 06/17/17 [History Last Taken Unknown] ipratropium 0.5 mg-albuterol 3 mg (2.5 mg base)/3 mL nebulization soln 3 ml inhalation 4X/DAY PRN SHORTNESS OF BREATH/WHEEZING 02/28/19 [History Last Taken Unknown] metoprolol succinate 50 mg tablet,extended release 24 hr 50 mg PO DAILY BLOOD PRESSURE 02/28/19 [History Last Taken 05/05/23] aspirin 81 mg tablet,delayed release 162 mg PO DAILY HEART HEALTH 03/01/19 [History Last Taken 05/05/23] clopidogrel 75 mg tablet 75 mg PO DAILY BLOOD THINNER #90 tabs 05/19/19 [Rx Last Taken 05/05/23] lisinopril 20 mg tablet 20 mg PO DAILY BLOOD PRESSURE 10/03/19 [History Last Taken 05/05/23] metformin 500 mg tablet,extended release 24 hr 1,500 mg PO DAILY DIABETES 10/03/19 [History Last Taken 05/05/23] hydralazine 10 mg tablet 10 mg PO BID BLOOD PRESSURE 05/06/23 [History Last Taken 05/05/23] rosuvastatin 20 mg tablet 20 mg PO DAILY CHOLESTEROL 05/06/23 [History Last Taken 05/05/23] Allergy/AdvReac Type Severity Reaction Status Date / Time nickel Allergy Rash Verified 05/06/23 12:05 Penicillins [PCN] Allergy Hives Verified 05/06/23 12:05 nicotine [From Nicoderm CQ] AdvReac Severe TERRIBLE Verified 05/06/23 12:05 NIGHTMARES Family History Mother Kidney disease Congestive heart failure Renal failure Father CAD (coronary artery disease) Daughter Hypertension Surgical History History of arthroscopic knee surgery History of History of cholecystectomy History of colonoscopy History of esophagogastroduodenoscopy (EGD) History of left heart catheterization (10/05/19) History of rotator cuff surgery History of selective injection of anesthetic agent around lumbar nerve root History of tonsillectomy and adenoidectomy History of total right knee replacement History of tubal ligation S/P CABG x 2 (10/17/15) Stented coronary artery (03/03/19) Social History (Updated 05/06/23 @ 18:[address] Harmony Argueta DO) Smoking Status: Current every day smoker alcohol intake: never substance use type: does not use Vital Signs Vital Signs Vital Signs: 05/06/23 12:00 05/06/23 12:12 05/06/23 12:18 Temperature 97.5 F L Temperature Source Temporal Pulse Rate 76 Respiratory Rate 19 H Respiratory Effort Short of Breath Blood Pressure 196/88 H Blood Pressure Mean 124 Pulse Ox 96 97 Oxygen Delivery Method Room Air Room Air 05/06/23 13:16 05/06/23 14:00 05/06/23 15:43 Temperature Temperature Source Pulse Rate 66 72 Respiratory Rate 17 18 18 Respiratory Effort Blood Pressure 164/91 H 141/65 H Blood Pressure Mean 115 90 Pulse Ox 95 98 98 Oxygen Delivery Method Room Air Room Air 05/06/23 16:49 Temperature Temperature Source Pulse Rate 66 Respiratory Rate 20 H Respiratory Effort Blood Pressure 151/88 H Blood Pressure Mean 109 Pulse Ox 99 Oxygen Delivery Method Room Air Weight Weight: 133.4 kg Body Mass Index (BMI) 47.5 Physical Exam Const alert, oriented x3, no apparent distress and well nourished; Negative for average body habitus or healthy appearing Constitutional Narrative: Morbidly obese, middle-aged, white female, appears older than stated age, sitting up in bed watching television, appears comfortable but is still complaining of chest pain centrally General Appearance: cooperative HEENT normocephalic, head/scalp atraumatic, hearing grossly normal bilaterally and moist oral mucous membranes HEENT Narrative: Mallampati 3-4, no thrush Resp normal respiratory effort, no retractions, no use of accessory muscles and No clear to auscultation bilaterally Resp Narrative: Diffusely diminished with few scattered end expiratory wheeze Auscultation: wheezes; Negative for rales or rhonchi Cardio regular rate, regular rhythm, S1 normal heart sound, S2 normal heart sound, no murmurs, no rub, no gallops and no clicks Cardio Narrative: Patient does have reproducible pain with palpation of the anterior chest wall that is similar to the pain she is experiencing but not the same GI normal to inspection, nondistended, normoactive bowel sounds, soft to palpation and non-tender Extremity no clubbing, cyanosis or edema Extremity Narrative: Pedal pulses are 2+ Neuro oriented x3, CN's II-XII intact bilaterally, moves all extremities and no focal motor deficits Speech: speech normal Psych affect normal Psych Narrative: Very pleasant, eye contact is good, appears comfortable Results Lab / Micro Data 05/06/23 12:10 05/06/23 12:10 Labs: Laboratory Results - last 24 hr 05/06/23 12:10: WBC 8.9, RBC 5.34, Hgb 16.6 H, Hct 49.5 H, MCV 92.7, MCH 31.1, MCHC 33.5, RDW Std Deviation 43.6, RDW Coeff of Aubrey 12.9, Plt Count 182, MPV 9.8, Immature Gran % (Auto) 0.400, Neut % (Auto) 60.8, Lymph % (Auto) 29.0, Barton% (Auto) 8.2, Eos % (Auto) 0.8, Baso % (Auto) 0.8, Absolute Neuts (auto) 5.4, Absolute Lymphs (auto) 2.59, Nucleated RBC % 0, D-Dimer Quant (PE/DVT) 0.54 H*, Sodium 138, Potassium 4.5, Chloride 108 H, Carbon Dioxide 25.0, Anion Gap 5, BUN9, Creatinine 0.74, Estim Creat Clear Calc 71.90, Est GFR (MDRD) Af Amer 102, Est GFR (MDRD) Non-Af 84, BUN/Creatinine Ratio 12.2, Glucose 151 H, Calcium 9.1,Troponin I High Sens 8 05/06/23 14:50: Troponin I High Sens Cancelled 05/06/23 16:00: Troponin I High Sens 6 Radiology Impression Chest X-Ray 05/06/23 12:25 IMPRESSION: No acute abnormality is seen. Focal linear metallic density projected over medial aspect of the left upper lobe most likely representing a foreign object. Electronically Signed: Mega Hewitt MD at 12:40 EDT , Assessment & Plan Assessment/Plan (1) Chest pain: (2) Erythrocytosis: PLAN: Plan Chest pain -Patient with significant coronary heart history and heart score of 5 -Chest pain has been ongoing for 2 weeks and troponin is unremarkable -EKG shows no acute changes consistent with acute ischemia -Check lipids -Check hemoglobin A1c -Continue aspirin -Continue home Plavix -Continue home hydralazine -Continue home statin -Continue metoprolol -Stress test in a.m. -As needed nitro Erythrocytosis -Likely related to her chronic tobacco abuse -We will monitor CAD/HTN/HPL -Patient with previous CABG -And last cardiac catheterization in 2019 -Patient has had PCI x1 since her CABG was performed -Continue dual antiplatelet therapy -Continue home hydralazine -Continue home statin -Continue home metoprolol -Check lipid panel DM-2 -Hold home metformin -Check A1c -SSI -Accu-Cheks -Cardiac/carb controlled diet Suspected COPD -Patient with about a [id number] history -As needed DuoNebs -Recommend outpatient pulmonary medicine follow-up Diabetic neuropathy -Continue home gabapentin Morbid obesity -Suspect patient likely has sleep apnea as she has morbid obesity along with a short thick neck -Would recommend outpatient polysomnography -BMI is 47.5 -Recommend weight loss -Complicates treatment, prognosis, outcomes Tobacco abuse -Recommend cessation -Nicotine patch available DVT prophylaxis -Subcu Lovenox twice daily 40 mg CODE STATUS -Full code Charges/Coding Visit Charges Inpatient E&M: 33673 Init Hosp L2 05/06/23 1810 <Electronically signed by Harmony Argueta DO> Cosigner Signature (if applicable): CC: Dr. Harmony Argueta DO; Dr. Mac Olvera MD~ Signed [facility] Work Phone: 1(850) 919-251510-25-2023 Discharge summary Author Angel Carter [facility] May 06, 2023 6:07pm Note Date/Time May 06, 2023 1 :33pm [facility] Medical Records Department [address] [place] [id number] Emergency Department Summary 05/06/23 MR#: [id number] Acct: [id number] Name: CAROL NOLAN Rep #:[id number] : 1960 62 From: Angel Whyte PCP: Dr. Mac Olvera MD Status:ADM I NO Location: [place] [address] HPI History of Present Illness Chief Complaint: Chest Pain Informant: patient Onset/Context/Timing Onset: Weeks (2) Activity at onset: gradual Timing: Continuous Quality: Positive for Pressure Location: Substernal and Left Parasternal Worsened By: Exertion Relieved By: NTG (Sometimes) Associated Symptoms: Positive for Nausea, Dyspnea, Cough, Lightheadedness and Palpitations; Negative for Vomiting, Diaphoresis, Fever or Acid Reflux Narrative Narrative: Patient presents with chest pain that has been constant for the past 2 weeks. Patient describes it as a pressure. Patient states it is over the substernal and left parasternal area. Patient states it gets worse when she exerts herselfsuch as walking to the bathroom. Patient states she gets short of breath with walking to the bathroom. Patient states that sometimes nitroglycerin helps but sometimes it does not. Patient admits to some nausea but denies any vomiting. Patient admits to a mild cough. Patient also admits to some palpitations and lightheadedness. 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 Chest pain Diabetes mellitus, type II Dyspnea on minimal exertion Encounter for screening for malignant neoplasm of lung in current smoker with 30pack year history or greater Hyperlipidemia Hypertension Tobacco use disorder Tobacco use disorder, continuous Home Medications nitroglycerin 0.4 mg sublingual tablet 0.4 mg sublingual Q5M PRN Chest Pain 05/15/15 [History Last Taken 06/16/17 06:00] gabapentin 300 mg capsule 300 mg PO QHS neuropathy 01/17/16 [History Last Taken 10/02/19] albuterol sulfate 90 mcg/actuation aerosol inhaler 2 puff inhalation Q4H PRN PRNSob &/Or Wheezing 06/17/17 [History Last Taken Unknown] ipratropium 0.5 mg-albuterol 3 mg (2.5 mg base)/3 mL nebulization soln 3 ml inhalation 4X/DAY PRN PRN Sob &/Or Wheezing 02/28/19 [History Last Taken Unknown] metoprolol succinate 50 mg tablet,extended release 24 hr 50 mg PO DAILY blood pressure 02/28/19 [History Last Taken 05/05/23] aspirin 81 mg tablet,delayed release 162 mg PO DAILY heart antiplatelet 03/01/19[History Last Taken 05/05/23] clopidogrel 75 mg tablet 75 mg PO DAILY #90 tabs 05/19/19 [Rx Last Taken 05/05/23] lisinopril 20 mg tablet 20 mg PO DAILY bp 10/03/19 [History Last Taken 05/05/23] metformin 500 mg tablet,extended release 24 hr 1,500 mg PO BID dm 10/03/19 [History Last Taken 05/05/23] rosuvastatin 10 mg tablet 20 mg PO DAILY cholesterol 10/04/19 [History Last Taken Unknown] hydralazine 10 mg tablet 12.5 mg PO BID 05/06/23 [History Last Taken 05/05/23] Allergy/AdvReac Type Severity Reaction Status Date / Time nickel Allergy Rash Verified 05/06/23 12:05 Penicillins [PCN] Allergy Hives Verified 05/06/23 12:05 nicotine [From Nicoderm CQ] AdvReac Severe TERRIBLE Verified 05/06/23 12:05 NIGHTMARES Family History Mother Kidney disease Congestive heart failure Renal failure Father CAD (coronary artery disease) Daughter Hypertension Surgical History History of arthroscopic knee surgery History of History of cholecystectomy History of colonoscopy History of esophagogastroduodenoscopy (EGD) History of left heart catheterization (10/05/19) History of rotator cuff surgery History of selective injection of anesthetic agent around lumbar nerve root History of tonsillectomy and adenoidectomy History of total right knee replacement History of tubal ligation S/P CABG x 2 (10/17/15) Stented coronary artery (03/03/19) Social History Smoking Status: Current some day smoker tobacco type: cigarettes Tobacco: How many years used: 43 ROS ROS ED Constitutional Constitutional ED: Denies chills or fever(s) Eyes Eyes: Denies blurry vision or change in vision ENT ENT ED: Denies rhinorrhea or sore throat Cardiovascular Cardiovascular: Reports chest pain and palpitations Respiratory/Chest Respiratory/Chest: Reports cough and dyspnea Gastrointestinal Gastrointestinal: Reports nausea; Denies abdominal pain or vomiting Genitourinary Genitourinary ED: Reports dysuria; Denies hematuria Musculoskeletal Musculoskeletal: Reports back pain; Denies neck pain Integumentary Denies abscess or rash Neurologic Neurologic: Reports headache(s); Denies weakness Allergic/Immunologic Allergic/Immunologic ED: Denies mouth swelling or urticaria EXAM Physical Exam Const Vital Signs: 05/06/23 12:00 05/06/23 12:12 05/06/23 12:18 Temperature 97.5 F L Temperature Source Temporal Pulse Rate 76 Respiratory Rate 19 H Respiratory Effort Short of Breath Blood Pressure 196/88 H Blood Pressure Mean 124 Pulse Ox 96 97 Oxygen Delivery Method Room Air Room Air 05/06/23 13:16 05/06/23 14:00 05/06/23 15:43 Temperature Temperature Source Pulse Rate 66 72 Respiratory Rate 17 18 18 Respiratory Effort Blood Pressure 164/91 H 141/65 H Blood Pressure Mean 115 90 Pulse Ox 95 98 98 Oxygen Delivery Method Room Air Room Air 05/06/23 16:49 Temperature Temperature Source Pulse Rate 66 Respiratory Rate 20 H Respiratory Effort Blood Pressure 151/88 H Blood Pressure Mean 109 Pulse Ox 99 Oxygen Delivery Method Room Air Positive well nourished, well developed and obese General Appearance ED: well developed and NAD Nutritional Appearance: obese HEENT Reports moist mucous membranes Neck supple and no JVD Resp normal respiratory effort and clear to auscultation bilaterally Cardio regular rate and regular rhythm GI soft to palpation, non-tender and non-distended Extremity normal to inspection General Extremety ED: Negative for edema or tenderness General Extremity: Negative for edema Neuro oriented x3, CN's II-XII intact bilaterally and no sensory deficits noted Sensorium / Orientation: awake and alert Motor Exam: strength 5/5 throughout Psych mental status grossly normal Heart Score History: Moderately Suspicious ECG: Nonspecific Repolarization Age: >45 - <65 years Risk Factors: >/= 3 Risk Factors or History of CAD Troponin: </= Normal Limit Score: 5 MDM MDM MDM Narrative Medical decision making narrative: Differential diagnosis includes cardiac dysrhythmia, cardiac ischemia, pneumothorax, pneumonia, pulmonary embolism, GERD, anxiety, and musculoskeletal pain. EKG will be obtained to assess for cardiac dysrhythmia and cardiac ischemia. Chest x-ray will be obtained to assess for pneumonia and pneumothorax. CBC will be obtained to assess for leukocytosis and anemia. Basic metabolic profile will be obtained to assess for electrolyte abnormality and renal function. High-sensitivity troponin will be obtained to assess for cardiac ischemia. 2-hour repeat high-sensitivity troponin will be obtained to assess for ongoing cardiac ischemia. D-dimer will be obtained to assess for pulmonary embolism. Lab Data Attestation: I reviewed the patient's lab results. Lab results narrative: CBC was reviewed and was within normal limits. Basic metabolic profile was reviewed and was within normal limits. High-sensitivity troponin was reviewed and was normal at 8. 2-hour repeat high-sensitivity troponin was reviewed and was normal at 6. D-dimer was reviewed and was 0.54 which is normal for her age. Labs: Laboratory Results - last 24 hr 10/25/23 10/25/23 10/25/23 12:10 14:50 16:00 WBC 8.9 RBC 5.34 Hgb 16.6 H Hct 49.5 H MCV 92.7 MCH 31.1 MCHC 33.5 RDW Std Deviation 43.6 RDW Coeff of Aubrey 12.9 Plt Count 182 MPV 9.8 Immature Gran % (Auto) 0.400 Neut % (Auto) 60.8 Lymph % (Auto) 29.0 Barton % (Auto) 8.2 Eos % (Auto) 0.8 Baso % (Auto) 0.8 Absolute Neuts (auto) 5.4 Absolute Lymphs (auto) 2.59 Nucleated RBC % 0 D-Dimer Quant (PE/DVT) 0.54 H* Sodium 138 Potassium 4.5 Chloride 108 H Carbon Dioxide 25.0 Anion Gap 5 BUN 9 Creatinine 0.74 Estim Creat Clear Calc 71.90 Est GFR (MDRD) Af Amer 102 Est GFR (MDRD) Non-Af 84 BUN/Creatinine Ratio 12.2 Glucose 151 H Calcium 9.1 Troponin I High Sens 8 Cancelled 6 Radiography Chest X-Ray - ED: 1 View, Read by ED Physician, Read by Radiologist and No AcuteDisease Diagnostic Testing: Clinical Impression(s) from Imaging Studies Chest X-Ray 05/06/23 12:25 IMPRESSION: No acute abnormality is seen. Focal linear metallic density projected over medial aspect of the left upper lobe most likely representing a foreign object. Electronically Signed: Mega Hewitt MD at 12:40 EDT , Portable 1 view chest x-ray was obtained. On my independent interpretation, lung pereira are clear. There is normal cardiac silhouette. Bony thorax is normal. There is no acute process noted. Radiologist also interpreted the x-ray and agrees. EKG Initial EKG: Attestation: I personally reviewed and interpreted this EKG as follows: Interpretation: Sinus Rhythm (64) and Non-Specific ST Changes Comments: EKG was obtained. On my independent interpretation, it showed anormal sinus rhythm with a rate of 64. SD interval, QRS interval, and QTc intervals were all normal. [place] was normal. There are nonspecific ST-T wave changes. Management Discussion w/another healthcare provider: Hospitalist Treatment and Re-Evaluation :: Patient was given aspirin and morphine initially. Patient is feeling better on reevaluation. Patient was advised of her findings. Patient has a HEART score of 5. Patient states it has been several years since she has had a stress test. Because of this, I recommended admission to the hospital for further evaluationof her chest pain. Patient is agreeable with this. Case will be discussed withthe hospitalist for admission. Patient understood and was agreeable with the plan. All questions were answered. Discharge Plan Dx/Rx/DC Orders Clinical Impression: Tobacco use disorder, S/P CABG x 2, Chest pain Disposition Disposition: [facility] What to do if you have Problems For any increased pain, shortness of breath, bleeding, nausea or vomiting, chestpain, or any unexpected problems, contact your Primary Care Provider. Call [facility] ([phone]) or report to the closest Emergency Room. Call 911 if necessary. 05/06/231806 <Electronically signed by Angel Carter DO> Cosigner Signature (if applicable): CC: Dr. Mac Olvera MD ~ Signed [facility] Work Phone: 1(687) 241-274010-25-2023 Discharge summary Author Angel [facility] May 06, 2023 6:07pm Note Date/Time May 06, 2023 1 :33pm [facility] Medical Records Department [address] [place] [id number] Emergency Department Summary 05/06/23 MR#: [id number] Acct: [id number] Name: CAROL NOLAN Rep #:[id number] : 1960 62 From: Angel Whyte PCP: Dr. Mac Olvera MD Status:ADM I NO Location: [place] [address] HPI History of Present Illness Chief Complaint: Chest Pain Informant: patient Onset/Context/Timing Onset: Weeks (2) Activity at onset: gradual Timing: Continuous Quality: Positive for Pressure Location: Substernal and Left Parasternal Worsened By: Exertion Relieved By: NTG (Sometimes) Associated Symptoms: Positive for Nausea, Dyspnea, Cough, Lightheadedness and Palpitations; Negative for Vomiting, Diaphoresis, Fever or Acid Reflux Narrative Narrative: Patient presents with chest pain that has been constant for the past 2 weeks. Patient describes it as a pressure. Patient states it is over the substernal and left parasternal area. Patient states it gets worse when she exerts herselfsuch as walking to the bathroom. Patient states she gets short of breath with walking to the bathroom. Patient states that sometimes nitroglycerin helps but sometimes it does not. Patient admits to some nausea but denies any vomiting. Patient admits to a mild cough. Patient also admits to some palpitations and lightheadedness. 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 Chest pain Diabetes mellitus, type II Dyspnea on minimal exertion Encounter for screening for malignant neoplasm of lung in current smoker with 30pack year history or greater Hyperlipidemia Hypertension Tobacco use disorder Tobacco use disorder, continuous Home Medications nitroglycerin 0.4 mg sublingual tablet 0.4 mg sublingual Q5M PRN Chest Pain 05/15/15 [History Last Taken 06/16/17 06:00] gabapentin 300 mg capsule 300 mg PO QHS neuropathy 01/17/16 [History Last Taken 10/02/19] albuterol sulfate 90 mcg/actuation aerosol inhaler 2 puff inhalation Q4H PRN PRNSob &/Or Wheezing 06/17/17 [History Last Taken Unknown] ipratropium 0.5 mg-albuterol 3 mg (2.5 mg base)/3 mL nebulization soln 3 ml inhalation 4X/DAY PRN PRN Sob &/Or Wheezing 02/28/19 [History Last Taken Unknown] metoprolol succinate 50 mg tablet,extended release 24 hr 50 mg PO DAILY blood pressure 02/28/19 [History Last Taken 05/05/23] aspirin 81 mg tablet,delayed release 162 mg PO DAILY heart antiplatelet 03/01/19[History Last Taken 05/05/23] clopidogrel 75 mg tablet 75 mg PO DAILY #90 tabs 05/19/19 [Rx Last Taken 05/05/23] lisinopril 20 mg tablet 20 mg PO DAILY bp 10/03/19 [History Last Taken 05/05/23] metformin 500 mg tablet,extended release 24 hr 1,500 mg PO BID dm 10/03/19 [History Last Taken 05/05/23] rosuvastatin 10 mg tablet 20 mg PO DAILY cholesterol 10/04/19 [History Last Taken Unknown] hydralazine 10 mg tablet 12.5 mg PO BID 05/06/23 [History Last Taken 05/05/23] Allergy/AdvReac Type Severity Reaction Status Date / Time nickel Allergy Rash Verified 05/06/23 12:05 Penicillins [PCN] Allergy Hives Verified 05/06/23 12:05 nicotine [From Nicoderm CQ] AdvReac Severe TERRIBLE Verified 05/06/23 12:05 NIGHTMARES Family History Mother Kidney disease Congestive heart failure Renal failure Father CAD (coronary artery disease) Daughter Hypertension Surgical History History of arthroscopic knee surgery History of History of cholecystectomy History of colonoscopy History of esophagogastroduodenoscopy (EGD) History of left heart catheterization (10/05/19) History of rotator cuff surgery History of selective injection of anesthetic agent around lumbar nerve root History of tonsillectomy and adenoidectomy History of total right knee replacement History of tubal ligation S/P CABG x 2 (10/17/15) Stented coronary artery (03/03/19) Social History Smoking Status: Current some day smoker tobacco type: cigarettes Tobacco: How many years used: 43 ROS ROS ED Constitutional Constitutional ED: Denies chills or fever(s) Eyes Eyes: Denies blurry vision or change in vision ENT ENT ED: Denies rhinorrhea or sore throat Cardiovascular Cardiovascular: Reports chest pain and palpitations Respiratory/Chest Respiratory/Chest: Reports cough and dyspnea Gastrointestinal Gastrointestinal: Reports nausea; Denies abdominal pain or vomiting Genitourinary Genitourinary ED: Reports dysuria; Denies hematuria Musculoskeletal Musculoskeletal: Reports back pain; Denies neck pain Integumentary Denies abscess or rash Neurologic Neurologic: Reports headache(s); Denies weakness Allergic/Immunologic Allergic/Immunologic ED: Denies mouth swelling or urticaria EXAM Physical Exam Const Vital Signs: 05/06/23 12:00 05/06/23 12:12 05/06/23 12:18 Temperature 97.5 F L Temperature Source Temporal Pulse Rate 76 Respiratory Rate 19 H Respiratory Effort Short of Breath Blood Pressure 196/88 H Blood Pressure Mean 124 Pulse Ox 96 97 Oxygen Delivery Method Room Air Room Air 05/06/23 13:16 05/06/23 14:00 05/06/23 15:43 Temperature Temperature Source Pulse Rate 66 72 Respiratory Rate 17 18 18 Respiratory Effort Blood Pressure 164/91 H 141/65 H Blood Pressure Mean 115 90 Pulse Ox 95 98 98 Oxygen Delivery Method Room Air Room Air 05/06/23 16:49 Temperature Temperature Source Pulse Rate 66 Respiratory Rate 20 H Respiratory Effort Blood Pressure 151/88 H Blood Pressure Mean 109 Pulse Ox 99 Oxygen Delivery Method Room Air Positive well nourished, well developed and obese General Appearance ED: well developed and NAD Nutritional Appearance: obese HEENT Reports moist mucous membranes Neck supple and no JVD Resp normal respiratory effort and clear to auscultation bilaterally Cardio regular rate and regular rhythm GI soft to palpation, non-tender and non-distended Extremity normal to inspection General Extremety ED: Negative for edema or tenderness General Extremity: Negative for edema Neuro oriented x3, CN's II-XII intact bilaterally and no sensory deficits noted Sensorium / Orientation: awake and alert Motor Exam: strength 5/5 throughout Psych mental status grossly normal Heart Score History: Moderately Suspicious ECG: Nonspecific Repolarization Age: >45 - <65 years Risk Factors: >/= 3 Risk Factors or History of CAD Troponin: </= Normal Limit Score: 5 MDM MDM MDM Narrative Medical decision making narrative: Differential diagnosis includes cardiac dysrhythmia, cardiac ischemia, pneumothorax, pneumonia, pulmonary embolism, GERD, anxiety, and musculoskeletal pain. EKG will be obtained to assess for cardiac dysrhythmia and cardiac ischemia. Chest x-ray will be obtained to assess for pneumonia and pneumothorax. CBC will be obtained to assess for leukocytosis and anemia. Basic metabolic profile will be obtained to assess for electrolyte abnormality and renal function. High-sensitivity troponin will be obtained to assess for cardiac ischemia. 2-hour repeat high-sensitivity troponin will be obtained to assess for ongoing cardiac ischemia. D-dimer will be obtained to assess for pulmonary embolism. Lab Data Attestation: I reviewed the patient's lab results. Lab results narrative: CBC was reviewed and was within normal limits. Basic metabolic profile was reviewed and was within normal limits. High-sensitivity troponin was reviewed and was normal at 8. 2-hour repeat high-sensitivity troponin was reviewed and was normal at 6. D-dimer was reviewed and was 0.54 which is normal for her age. Labs: Laboratory Results - last 24 hr 05/06/23 05/06/23 05/06/23 12:10 14:50 16:00 WBC 8.9 RBC 5.34 Hgb 16.6 H Hct 49.5 H MCV 92.7 MCH 31.1 MCHC 33.5 RDW Std Deviation 43.6 RDW Coeff of Aubrey 12.9 Plt Count 182 MPV 9.8 Immature Gran % (Auto) 0.400 Neut % (Auto) 60.8 Lymph % (Auto) 29.0 Barton % (Auto) 8.2 Eos % (Auto) 0.8 Baso % (Auto) 0.8 Absolute Neuts (auto) 5.4 Absolute Lymphs (auto) 2.59 Nucleated RBC % 0 D-Dimer Quant (PE/DVT) 0.54 H* Sodium 138 Potassium 4.5 Chloride 108 H Carbon Dioxide 25.0 Anion Gap 5 BUN 9 Creatinine 0.74 Estim Creat Clear Calc 71.90 Est GFR (MDRD) Af Amer 102 Est GFR (MDRD) Non-Af 84 BUN/Creatinine Ratio 12.2 Glucose 151 H Calcium 9.1 Troponin I High Sens 8 Cancelled 6 Radiography Chest X-Ray - ED: 1 View, Read by ED Physician, Read by Radiologist and No AcuteDisease Diagnostic Testing: Clinical Impression(s) from Imaging Studies Chest X-Ray 05/06/23 12:25 IMPRESSION: No acute abnormality is seen. Focal linear metallic density projected over medial aspect of the left upper lobe most likely representing a foreign object. Electronically Signed: Mega Hewitt MD at 12:40 EDT , Portable 1 view chest x-ray was obtained. On my independent interpretation, lung pereira are clear. There is normal cardiac silhouette. Bony thorax is normal. There is no acute process noted. Radiologist also interpreted the x-ray and agrees. EKG Initial EKG: Attestation: I personally reviewed and interpreted this EKG as follows: Interpretation: Sinus Rhythm (64) and Non-Specific ST Changes Comments: EKG was obtained. On my independent interpretation, it showed anormal sinus rhythm with a rate of 64. SD interval, QRS interval, and QTc intervals were all normal. [place] was normal. There are nonspecific ST-T wave changes. Management Discussion w/another healthcare provider: Hospitalist Treatment and Re-Evaluation :: Patient was given aspirin and morphine initially. Patient is feeling better on reevaluation. Patient was advised of her findings. Patient has a HEART score of 5. Patient states it has been several years since she has had a stress test. Because of this, I recommended admission to the hospital for further evaluationof her chest pain. Patient is agreeable with this. Case will be discussed withthe hospitalist for admission. Patient understood and was agreeable with the plan. All questions were answered. Discharge Plan Dx/Rx/DC Orders Clinical Impression: Tobacco use disorder, S/P CABG x 2, Chest pain Disposition Disposition: Acute Care Hospital [facility] What to do if you have Problems For any increased pain, shortness of breath, bleeding, nausea or vomiting, chestpain, or any unexpected problems, contact your Primary Care Provider. Call [facility] ([phone]) or report to the closest Emergency Room. Call 911 if necessary. 05/06/23 180 <Electronically signed by Angel Carter DO> Cosigner Signature (if applicable): CC: Dr. Mac Olvera MD ~ Signed [facility] Work Phone: 1(560) 927-159410-20-2023 Miscellaneous Notes* Telephone Encounter - Ro Royal LPN - 05/01/2023 2:25 PM EDT Patient notified. * Telephone Encounter - Mac Olvera MD - 05/01/2023 1:35 PM EDT Her last bp was a little high. We could have her do 1/2 of a hydralazine bid. Needs to have follow for bp with one of us in a month. * Telephone Encounter - Jo Gant OCCA - 05/01/2023 1:30 PM EDT TC to patient who states she is unable to travel to another pharmacy as she is having trouble with her health and her vehicle. Patient states it is not that pharmacy cannot order the meds, it is thatthey cannot get the 10 mg supply in stock. Patient asking if there is another medication that can be prescribed as she is not able to travel. Please advise. Thank you. KATH Lanza * Telephone Encounter - Mac Olvera MD - 05/01/2023 1:04 PM EDT I am afraid that would be too much. Is she able to switch pharmacies. Can they order it in? * Telephone Encounter - Mari Chinchilla LPN - 05/01/2023 12:33 PM EDT Patient calling, states that her Hydralazine has not been filled. Pharmacy told her that they cannot get 10 mg tablet. They can get 25 mg tablets. Patient asking if she can get an Rx for 25 mg or be switched to a differ net medication. Please advise. [facility] Miscellaneous Notes* Telephone Encounter - Jennifer Kapoor - 04/24/2023 1:24 PM EDT RUSLAN:10/31/22 NOV:05/06/23 Jennifer Kapoor * Telephone Encounter - Leyla Ervin - 04/24/2023 12:27 PM EDT Patient has been identified by name and date of : Yes Requested Prescriptions Pending Prescriptions Disp Refills hydrALAZINE (APRESOLINE) 10 mg tablet 60 tablet 5 Sig: Take 1 tablet by mouth two times a day. rosuvastatin (CRESTOR) 20 mg tablet 30 tablet 5 Sig: Take 1 tablet by mouth once daily. linaGLIPtin (TRADJENTA) 5 mg tab 30 tablet 5 Sig: Take 1 tablet by mouth once daily. RX INSTRUCTIONS: Patient aware RX will be sent to pharmacy. No need to notify patient. Leyla Kaur documented in [facility] Miscellaneous Notes* Telephone Encounter - Brenda Kaur - 12/24/2022 1:33 PM EDT Patient has been identified by name and date of : Yes Requested Prescriptions Pending Prescriptions Disp Refills aspirin, enteric coated (ASPIRIN, ENTERIC COATED) 81 mg EC tablet 60 tablet 5 Sig: Take 2 tablets by mouth once daily. clopidogrel (PLAVIX) 75 mg tablet 30 tablet 5 Sig: Take 1 tablet by mouth once daily. gabapentin (NEURONTIN) 300 mg capsule 30 capsule 5 Sig: Take 1 capsule by mouth daily at bedtime for 180 days. lisinopril (ZESTRIL) 20 mg tablet 30 tablet 5 Sig: Take 1 tablet by mouth once daily. metoprolol succinate ER (TOPROL XL) 50 mg 24 hr tablet 30 tablet 5 Sig: Take 1 tablet by mouth once daily. RX INSTRUCTIONS: Patient aware RX will be sent to pharmacy. No need to notify patient. Brenda Kaur documented in this encounterMary [facility] Nurse Note* Rhiannon Cook RN - 11/28/2022 10:01 AM EDT Patient received in phase II via cart left lateral position, eyes open, alert to self and event, skin warm and dry, respirations regular and unlabored, abdomen soft and non distended, denies pain, cramping or nausea. Resting comfortably on left side. documented in this encounterMary [facility] History and physical note * Nicole Velasquez MD - 11/28/2022 9:00 AM EDT UPDATED PROCEDURAL SEDATION HISTORY AND PHYSICAL EXAMINATION SERVICE DATE: 11/28/2022 SERVICE TIME: 9:10 PHYSICAL EXAM MUST BE COMPLETED ON ADMISSION PROCEDURE: EGD and colonoscopy, possible biopsies Procedure Indications: history of colon polyps, GERD The History and Physical (completed in the past 30 days) has been reviewed and the patient has beenexamined. The contents accurately reflect the patient's condition with the following additions or revisions since the H&P was completed. ASA Class: ASA Class:: Patient with severe systemic disease (poorly controlled diabetes) Examination indicates no changes. AIRWAY: Airway Visualization of Uvula: Yes Mouth opening greater than 2 fingerbreadths: Yes Neck Full Range of Motion: Yes LUNGS: Lungs clear to auscultation CARDIAC: Regular rhythm,Regular rate Provisional Diagnosis/Treatment Plan: EGD and colonoscopy, possible biopsies SEDATION GOAL: Moderate This H&P can be found in the Electronic Medical Record . SIGNATURE: Nicole Velasquez MD PATIENT NAME: Carol Nolan DATE: November 28, 2022 TIME: 9:11 AM Source Note - Nicole Velasquez MD - 11/28/2022 9:00 AM EDT HISTORY AND PHYSICAL Carol Nolan 1960 REFERRING PHYSICIAN: No ref. provider found CHIEF COMPLAINT: Consult (EGD and colonoscopy, check hernia) HPI: The patient is a 61 year old female referred for endoscopy. Carol notes a history of colon polyps and is due for surveillance colonoscopy. Patient denies aweight changes, blood in stools, blacktarry stools . Denies family history of colon issues. The patient NOTES GERD and has also noted intermittent abdominal discomfort and fluctuation in her bowel habits. States she was told at one point in the past that she has a hernia and wonders if thiscould be contributing to symptoms. She is unsure when that might have been mentioned or diagnosed. Prior scans reviewed in [facility] without mention of mass or hernia. Patient notes sometimes feeling bulge /fullness in upper/mid abdomen. Denies nausea, vomiting or other obstructive symptoms. Carol has undergone prior endoscopy. Last EGD and colonoscopy 12/10/[address] Velasquez under [facility]. Patient's past medical history is significant for hypertension, hyperlipidemia, obesity, coronary artery disease, tobacco use. She follows with Dr. Olvera in primary care for her chronic medical conditions. PAST MEDICAL HISTORY PAST MEDICAL HISTORY Diagnosis Date Chronic back pain Cigarette smoker Colon polyps Coronary artery disease Diarrhea Essential hypertension Fatty liver ultra sound 2014 Hyperglycemia Hyperlipidemia Obesity Preinfarction syndrome (HCC) Tobacco abuse PAST SURGICAL HISTORY PAST SURGICAL HISTORY Procedure Laterality Date CABG (2) VEIN GRAFTS & ARTERIAL GRAFT(S 10/17/15 DELIVERY ONLY , low transverse CHOLECYSTECTOMY HX maybe 1989' COLONOSCOPY 11/27/2017 COLONOSCOPY FLX DX W/COLLJ SPEC WHEN PFRMD 05/17/15 Colonoscopy [facility] outpt ESOPHAGOGASTRODUODENOSCOPY TRANSORAL DIAGNOSTIC 05/17/15 EGD [facility] outpt ORTHOPEDICS SURGERY HX Left RCR PAST SURGICAL HISTORY OF Bilateral knee arthroscopy PAST SURGICAL HISTORY OF lumbar pain injections PAST SURGICAL HISTORY OF Repair tendon/muscle arm-left rotator cuff surgery TONSILLECTOMY AND ADENOIDECTOMY HX TONSILLECTOMY HX TOTAL KNEE REPLACEMENT right TUBAL LIGATION HX CURRENT MEDICATIONS Current Outpatient Medications Medication Sig metFORMIN ER (GLUCOPHAGE XR) 500 mg 24 hr tablet Take 3 tablets by mouth daily with breakfast. hydrALAZINE (APRESOLINE) 10 mg tablet Take 1 tablet by mouth twice daily. lisinopril (ZESTRIL, PRINIVIL) 20 mg tablet Take 1 tablet by mouth once daily. metoprolol succinate ER (TOPROL XL) 50 mg 24 hr tablet Take 1 tablet by mouth once daily. gabapentin (NEURONTIN) 300 mg capsule Take 1 capsule by mouth daily at bedtime for 180 days. aspirin, enteric coated (ASPIRIN, ENTERIC COATED) 81 mg EC tablet Take 2 tablets by mouth once daily. clopidogrel (PLAVIX) 75 mg tablet Take 1 tablet by mouth once daily. rosuvastatin (CRESTOR) 20 mg tablet Take 1 tablet by mouth once daily. albuterol HFA (PROVENTIL HFA, VENTOLIN HFA) 90 mcg/actuation inhaler Inhale 2 Puffs as instructed every 6 hours as needed for wheezing/shortness of breath. nitroglycerin sublingual (NITROQUICK) 0.4 mg SL tablet Dissolve 1 tablet under the tongue as neededfor chest pain. Blood-Glucose Meter (Matternet ULTRA2 METER) USE DIRECTED blood sugar diagnostic (BLOOD GLUCOSE TEST) test strip Test blood sugar(s) 1 times daily. Dx: Type 2 DM - Uncontrolled E11.65 Insulin: No Lancets lancets Test blood sugar(s) 1 times daily. Dx: Type 2 DM - Uncontrolled E11.65 Insulin: No ipratropium-albuterol (DUONEB) 0.5 mg-3 mg(2.5 mg base)/3 mL nebu Inhale 3 mL as instructed four times daily. No current facility-administered medications for this visit. ALLERGIES: Penicillins and Nickel PERSONAL HISTORY: SOCIAL HISTORY Social History Tobacco Use Smoking status: Every Day Packs/day: 2.00 Years: 43.00 Pack years: 86.00 Types: Cigarettes Start date: 04/27/1972 Smokeless tobacco: Former Tobacco comments: started smoking at age 11;cigarette; Amount: 20-39 cigs/day; 1 1/2 - 2 ppd x 43 years; Vaping Use Vaping Use: Never used Substance Use Topics Alcohol use: Yes Alcohol/week: 5.0 - 30.0 standard drinks Types: 2 - 3 Cans of Beer (12oz) per week Comment: 2-3 x per week Drug use: No FAMILY HISTORY: FAMILY HISTORY FAMILY HISTORY Problem Relation Age of Onset other (congestive heart failure) Mother other (CKD) Mother other (renal failure) Mother Ischemic Heart Disease Father Hypertension Daughter lung Cancer Maternal Grandfather REVIEW OF SYMPTOMS: The review of systems data was entered by the nurse and reviewed by dc Nursing Notes: Violeta Quiñones LPN 09/30/2022 10:43 AM Signed REVIEW OF SYSTEMS: General: The patient notes fatigue, denies weight loss, notes weight gain, notes feeling hot, and denies feelings of cold. Eyes: The patient denies glaucoma, denies eye injury/surgery, does not wear glasses or contacts. Ear/Nose/Throat: The patient notes allergies, denies hayfever, notes ear infections, and denies bloody noses. Cardiovascular: The patient notes chest pain, notes heart disease, notes high blood pressure,notes cardiac stent, denies prior heart attack, notes irregular heart beat, notes high cholesterol, deniespoor circulation, denies heart failure, other cardiac issues, notes claudication, denies cold feet,notes peripheral arterial stent. Respiratory: The patient denies tuberculosis, denies pneumonia, notes frequent cough, denies pulmonary embolism, notes shortness of breath, and denies coughing up blood, notes other lung problems. Gastrointestinal: The patient notes difficulty swallowing, denies acid reflux, denies ulcers, denies vomiting, denies jaundice/hepatitis, notes gallbladder problems, denies black or tarry stools, denies hemorrhoids, notes bleeding from rectum, denies diverticulitis, notes constipation, notes diarrhea, notes loss of stool control, and notes hernias. Kidney/Bladder: The patient notes kidney stones, notes urine infections, and bloody urine. Skin: The patient denies a history of skin cancer, notes bleeding/changing moles, and denies a history of skin rash. Neurologic: The patient denies a history of epilepsy/convulsions, notes headaches, denies head/spinal injuries, and denies stroke/TIA. Psychiatric: The patient denies psychiatric medications, denies depression, and denies voices, denies substance abuse. Endocrine: The patient denies thyroid disorders, notes diabetes, and denies hormonal problems. Hematologic: The patient denies a history of bruising, denies bleeding, and denies anemia, denies blood clots. Infections: The patient notes a history of measles and mumps, denies rheumatic fever, and denies sexually transmitted diseases. Musculoskeletal: The patient notes back pain/injury, notes back problems, notes sciatica, notes knee/foot trouble, denies arthritis, or denies gout. When was patient's last Mammogram screening? 2020 Last Colonoscopy: 2017 Violeta Quiñones LPN I have confirmed and edited as necessary, the PFSH and ROS obtained by others. Delicia Bertrand PA-C PHYSICAL EXAMINATION: General: The patient is 61 year old female, well nourished, well hydrated in no acute distress. Thepatient is oriented to time, place, and person. VITALS: Blood pressure 140/62, pulse 106, temperature 36.8 C (98.3 F), height 167.6 cm (5' 6), weight 133.8 kg (295 lb), SpO2 95 %. There is no height or weight on file to calculate BMI. HEENT: Normal cephalic, ataumatic, pupils are equally round, sclera are anicteric, mucous membranesare moist, oropharynx is clear. Neck has no masses, asymmetry or lymphadenopathy. Respiratory: Clear to auscultation and percussion. Normal respiratory excursion and pattern. Cardiac: Examination is regular rate and rhythm. Normal S1/S2 Abdominal exam: Soft, nontender, with no palpable masses. No hepatosplenomegaly. +some fullness/fascial weakness mid abdomen Extremities: no clubbing, cyanosis or edema. No adenopathy. LABORATORY VALUES: As Noted RADIOLOGIC STUDIES: As Noted Assessment IMPRESSION: history of colon polyps, encounter for surveillance colonoscopy, upper abdominal discomfort, GERD, ?abd wall hernia PLAN: I have reviewed my findings with the surgeon. Will plan for upper and lower endoscopy. We discussed the risks and benefits of the planned endoscopy. I have informed the patient that complications can occur including failure to complete the endoscopy and perforation. The patient had the opportunity to ask questions concerning the planned endoscopy. My staff has also explained the procedure to the patient in understandable terms and has given the patient printed material concerning the procedure. The patient freely consents to surgery. The patient was offered a surgery/procedure [facility] facility. I have counseled the patient regarding the risk of exposure to and/or potential harm posed by the COVID-19 virus with having a surgery/procedure at this time versus the risk of delaying the surgery/procedure. It is not possible to know either the risk of delaying the surgery or procedure or chance of getting an infection with perfect accuracy, but a joint decision was made between the patient and myself to proceed at this time with endoscopy. I plan to use Golytely bowel preparation The patient has medical comorbidities for which we will plan for the procedure to be performed under [facility]. Recommend consult with surgeon for abdominal wall bulge/possible hernia Diagnoses: (Z12.11) Encounter for screening for malignant neoplasm of colon (primary encounter diagnosis) (Z86.010) History of colonic polyps (E66.01) Morbid obesity (HCC) (R19.00) Abdominal wall bulge (R10.11, R10.12) Bilateral upper abdominal discomfort (K21.9) Gastroesophageal reflux disease, unspecified whether esophagitis present Consultation requested by Dr. Olvera for an opinion regarding history of colon polyps. My final recommendations will be communicated back to the requesting physician by way of shared Medical record or letter to requesting physician via [place] mail. Delicia Bertrand PA-C * Nicole Velasquez MD - 11/28/2022 9:00 AM EDT HISTORY AND PHYSICAL Carol Nolan 1960 REFERRING PHYSICIAN: No ref. provider found CHIEF COMPLAINT: Consult (EGD and colonoscopy, check hernia) HPI: The patient is a 61 year old female referred for endoscopy. Carol notes a history of colon polyps and is due for surveillance colonoscopy. Patient denies aweight changes, blood in stools, blacktarry stools . Denies family history of colon issues. The patient NOTES GERD and has also noted intermittent abdominal discomfort and fluctuation in her bowel habits. States she was told at one point in the past that she has a hernia and wonders if thiscould be contributing to symptoms. She is unsure when that might have been mentioned or diagnosed. Prior scans reviewed in Epic without mention of mass or hernia. Patient notes sometimes feeling bulge /fullness in upper/mid abdomen. Denies nausea, vomiting or other obstructive symptoms. Carol has undergone prior endoscopy. Last EGD and colonoscopy 12/10/[address] Velasquez under [facility]. Patient's past medical history is significant for hypertension, hyperlipidemia, obesity, coronary artery disease, tobacco use. She follows with Dr. Olvera in primary care for her chronic medical conditions. PAST MEDICAL HISTORY PAST MEDICAL HISTORY Diagnosis Date Chronic back pain Cigarette smoker Colon polyps Coronary artery disease Diarrhea Essential hypertension Fatty liver ultra sound 2014 Hyperglycemia Hyperlipidemia Obesity Preinfarction syndrome (HCC) Tobacco abuse PAST SURGICAL HISTORY PAST SURGICAL HISTORY Procedure Laterality Date CABG (2) VEIN GRAFTS & ARTERIAL GRAFT(S 4/6/16 DELIVERY ONLY , low transverse CHOLECYSTECTOMY HX maybe 1989' COLONOSCOPY 11/27/2017 COLONOSCOPY FLX DX W/COLLJ SPEC WHEN PFRMD 05/17/15 Colonoscopy [facility] outpt ESOPHAGOGASTRODUODENOSCOPY TRANSORAL DIAGNOSTIC 05/17/15 EGD [facility] outpt ORTHOPEDICS SURGERY HX Left RCR PAST SURGICAL HISTORY OF Bilateral knee arthroscopy PAST SURGICAL HISTORY OF lumbar pain injections PAST SURGICAL HISTORY OF Repair tendon/muscle arm-left rotator cuff surgery TONSILLECTOMY AND ADENOIDECTOMY HX TONSILLECTOMY HX TOTAL KNEE REPLACEMENT right TUBAL LIGATION HX CURRENT MEDICATIONS Current Outpatient Medications Medication Sig metFORMIN ER (GLUCOPHAGE XR) 500 mg 24 hr tablet Take 3 tablets by mouth daily with breakfast. hydrALAZINE (APRESOLINE) 10 mg tablet Take 1 tablet by mouth twice daily. lisinopril (ZESTRIL, PRINIVIL) 20 mg tablet Take 1 tablet by mouth once daily. metoprolol succinate ER (TOPROL XL) 50 mg 24 hr tablet Take 1 tablet by mouth once daily. gabapentin (NEURONTIN) 300 mg capsule Take 1 capsule by mouth daily at bedtime for 180 days. aspirin, enteric coated (ASPIRIN, ENTERIC COATED) 81 mg EC tablet Take 2 tablets by mouth once daily. clopidogrel (PLAVIX) 75 mg tablet Take 1 tablet by mouth once daily. rosuvastatin (CRESTOR) 20 mg tablet Take 1 tablet by mouth once daily. albuterol HFA (PROVENTIL HFA, VENTOLIN HFA) 90 mcg/actuation inhaler Inhale 2 Puffs as instructed every 6 hours as needed for wheezing/shortness of breath. nitroglycerin sublingual (NITROQUICK) 0.4 mg SL tablet Dissolve 1 tablet under the tongue as neededfor chest pain. Blood-Glucose Meter ([employer]vene[employer]OUCH ULTRA2 METER) USE DIRECTED blood sugar diagnostic (BLOOD GLUCOSE TEST) test strip Test blood sugar(s) 1 times daily. Dx: Type 2 DM - Uncontrolled E11.65 Insulin: No Lancets lancets Test blood sugar(s) 1 times daily. Dx: Type 2 DM - Uncontrolled E11.65 Insulin: No ipratropium-albuterol (DUONEB) 0.5 mg-3 mg(2.5 mg base)/3 mL nebu Inhale 3 mL as instructed four times daily. No current facility-administered medications for this visit. ALLERGIES: Penicillins and Nickel PERSONAL HISTORY: SOCIAL HISTORY Social History Tobacco Use Smoking status: Every Day Packs/day: 2.00 Years: 43.00 Pack years: 86.00 Types: Cigarettes Start date: 04/27/1972 Smokeless tobacco: Former Tobacco comments: started smoking at age 11;cigarette; Amount: 20-39 cigs/day; 1 1/2 - 2 ppd x 43 years; Vaping Use Vaping Use: Never used Substance Use Topics Alcohol use: Yes Alcohol/week: 5.0 - 30.0 standard drinks Types: 2 - 3 Cans of Beer (12oz) per week Comment: 2-3 x per week Drug use: No FAMILY HISTORY: FAMILY HISTORY FAMILY HISTORY Problem Relation Age of Onset other (congestive heart failure) Mother other (CKD) Mother other (renal failure) Mother Ischemic Heart Disease Father Hypertension Daughter lung Cancer Maternal Grandfather REVIEW OF SYMPTOMS: The review of systems data was entered by the nurse and reviewed by me Nursing Notes: Violeta Quiñones LPN 09/30/2022 10:43 AM Signed REVIEW OF SYSTEMS: General: The patient notes fatigue, denies weight loss, notes weight gain, notes feeling hot, and denies feelings of cold. Eyes: The patient denies glaucoma, denies eye injury/surgery, does not wear glasses or contacts. Ear/Nose/Throat: The patient notes allergies, denies hayfever, notes ear infections, and denies bloody noses. Cardiovascular: The patient notes chest pain, notes heart disease, notes high blood pressure,notes cardiac stent, denies prior heart attack, notes irregular heart beat, notes high cholesterol, deniespoor circulation, denies heart failure, other cardiac issues, notes claudication, denies cold feet,notes peripheral arterial stent. Respiratory: The patient denies tuberculosis, denies pneumonia, notes frequent cough, denies pulmonary embolism, notes shortness of breath, and denies coughing up blood, notes other lung problems. Gastrointestinal: The patient notes difficulty swallowing, denies acid reflux, denies ulcers, denies vomiting, denies jaundice/hepatitis, notes gallbladder problems, denies black or tarry stools, denies hemorrhoids, notes bleeding from rectum, denies diverticulitis, notes constipation, notes diarrhea, notes loss of stool control, and notes hernias. Kidney/Bladder: The patient notes kidney stones, notes urine infections, and bloody urine. Skin: The patient denies a history of skin cancer, notes bleeding/changing moles, and denies a history of skin rash. Neurologic: The patient denies a history of epilepsy/convulsions, notes headaches, denies head/spinal injuries, and denies stroke/TIA. Psychiatric: The patient denies psychiatric medications, denies depression, and denies voices, denies substance abuse. Endocrine: The patient denies thyroid disorders, notes diabetes, and denies hormonal problems. Hematologic: The patient denies a history of bruising, denies bleeding, and denies anemia, denies blood clots. Infections: The patient notes a history of measles and mumps, denies rheumatic fever, and denies sexually transmitted diseases. Musculoskeletal: The patient notes back pain/injury, notes back problems, notes sciatica, notes knee/foot trouble, denies arthritis, or denies gout. When was patient's last Mammogram screening? 2020 Last Colonoscopy: 2017 Violeta Quiñones LPN I have confirmed and edited as necessary, the PFSH and ROS obtained by others. Delicia Bertrand PA-C PHYSICAL EXAMINATION: General: The patient is 61 year old female, well nourished, well hydrated in no acute distress. Thepatient is oriented to time, place, and person. VITALS: Blood pressure 140/62, pulse 106, temperature 36.8 C (98.3 F), height 167.6 cm (5' 6), weight 133.8 kg (295 lb), SpO2 95 %. There is no height or weight on file to calculate BMI. HEENT: Normal cephalic, ataumatic, pupils are equally round, sclera are anicteric, mucous membranesare moist, oropharynx is clear. Neck has no masses, asymmetry or lymphadenopathy. Respiratory: Clear to auscultation and percussion. Normal respiratory excursion and pattern. Cardiac: Examination is regular rate and rhythm. Normal S1/S2 Abdominal exam: Soft, nontender, with no palpable masses. No hepatosplenomegaly. +some fullness/fascial weakness mid abdomen Extremities: no clubbing, cyanosis or edema. No adenopathy. LABORATORY VALUES: As Noted RADIOLOGIC STUDIES: As Noted Assessment IMPRESSION: history of colon polyps, encounter for surveillance colonoscopy, upper abdominal discomfort, GERD, ?abd wall hernia PLAN: I have reviewed my findings with the surgeon. Will plan for upper and lower endoscopy. We discussed the risks and benefits of the planned endoscopy. I have informed the patient that complications can occur including failure to complete the endoscopy and perforation. The patient had the opportunity to ask questions concerning the planned endoscopy. My staff has also explained the procedure to the patient in understandable terms and has given the patient printed material concerning the procedure. The patient freely consents to surgery. The patient was offered a surgery/procedure at a [facility] facility. I have counseled the patient regarding the risk of exposure to and/or potential harm posed by the COVID-19 virus with having a surgery/procedure at this time versus the risk of delaying the surgery/procedure. It is not possible to know either the risk of delaying the surgery or procedure or chance of getting an infection with perfect accuracy, but a joint decision was made between the patient and myself to proceed at this time with endoscopy. I plan to use Golytely bowel preparation The patient has medical comorbidities for which we will plan for the procedure to be performed under [facility]. Recommend consult with surgeon for abdominal wall bulge/possible hernia Diagnoses: (Z12.11) Encounter for screening for malignant neoplasm of colon (primary encounter diagnosis) (Z86.010) History of colonic polyps (E66.01) Morbid obesity (HCC) (R19.00) Abdominal wall bulge (R10.11, R10.12) Bilateral upper abdominal discomfort (K21.9) Gastroesophageal reflux disease, unspecified whether esophagitis present Consultation requested by Dr. Olvera for an opinion regarding history of colon polyps. My final recommendations will be communicated back to the requesting physician by way of shared Medical record or letter to requesting physician via US mail. Delicia Bertrand PA-C documented in this encounterMary [facility]04-26-[facility]23 Miscellaneous Notes* Telephone Encounter - Ro Royal LPN - 11/05/2022 10:53 AM EDT Left detailed message as advised by patient. * Telephone Encounter - Mac Olvera MD - 11/05/2022 10:01 AM EDT Am is fine. * Telephone Encounter - Adela Castanon LPN - 11/05/2022 9:50 AM EDT Pt called and she is going to pick out hand the Tradjenta today. Pt wants to know what time of day shouldshe take this. Pt will continue on Metformin taking 3 tabs with breakfast. Please advise pt. Adela Castanon LPN documented in this encounterMary [facility]04-25-2023 Miscellaneous Notes* Telephone Encounter - Pebbles Gonzalez Ma - 11/04/2022 1:39 PM EDT Pt notified of provider message * Telephone Encounter - Mac Olvera MD - 11/04/2022 12:50 PM EDT Her sugars are too high for surgery or steroid injections right now. We can do physical therapy if she changes her mind. Does she still have voltaren gel at home. I would use that four times a day regularly. Ortho will want weight loss and better sugar control before they will mess with her knee. * Telephone Encounter - Adela Castanon LPN - 11/04/2022 8:15 AM EDT [facility] called and they received referral for pt. However they do not see [facility] and will not be able to see pt. Please advise pt. Adela Castanon LPN documented in this encounterMary [facility] Hospital04-24-2023 Miscellaneous Notes* Telephone Encounter - Serjio Chen LPN - 11/03/2022 3:30 PM EDT Pt agreeable to seeing Ortho. Requested referral to [facility], referral faxed. 3 month follow up scheduled as well. Serjio Chen LPN * Telephone Encounter - Mac Olvera MD - 11/03/2022 3:14 PM EDT I can have her see ortho, however, her sugars are too high to inject steroids or do surgery. If surgery is indicated, would see [facility]. (Our own ortho would want her to do therapy and lose weight before considering) Add tradjenta and follow up in three months. * Telephone Encounter - Pebbles Gonzalez Ma - 11/03/2022 2:47 PM EDT Patient was made aware of the results. She is taking her medications. She is eating nightly ice cream, which she is stopping. Pt does not feel she is capable of doing physical therapy at this time Pebbles Gonzalez Ma * Telephone Encounter - Mac Olvera MD - 11/03/2022 2:31 PM EDT Xray shows significant arthritis. Her liver numbers are higher and her sugars are significantly worse. Has she missed any of her sugar meds? Recheck ;liver labs in two weeks. Can do physical therapy for her knee. Is she willing? * Telephone Encounter - Desi Carrillo LPN - 11/03/2022 8:09 AM EDT Patient calling asking for her lab and xray results. Please advise Component Latest Ref Rng & Units 10/31/2022 WBC 3.70 - 11.00 k/uL 9.62 RBC 3.90 - 5.20 m/uL 4.62 Hemoglobin 11.5 - 15.5 g/dL 15.7 (H) Hematocrit 36.0 - 46.0 % 43.5 MCV 80.0 - 100.0 fL 94.2 MCH 26.0 - 34.0 pg 34.0 MCHC 30.5 - 36.0 g/dL 36.1 (H) RDW-CV 11.5 - 15.0 % 13.7 Platelet Count 150 - 400 k/uL 263 MPV 9.0 - 12.7 fL 9.9 Neut% % 55.7 Abs Neut (ANC) 1.45 - 7.50 k/uL 5.35 Lymph% % 34.5 Abs Lymph 1.00 - 4.00 k/uL 3.32 Barton% % 8.3 Abs Barton <0.87 k/uL 0.80 Eosin% % 0.5 Abs Eosin <0.46 k/uL 0.05 Baso% % 0.8 Abs Baso <0.11 k/uL 0.08 Immature Gran % % 0.2 IMMATURE GRANS (ABS) <0.10 k/uL <0.03 NRBC /100 WBC 0.0 Absolute nRBC <0.01 k/uL <0.01 DTYPE Auto Protein, Total 6.3 - 8.0 g/dL 7.2 Albumin 3.9 - 4.9 g/dL 4.1 Calcium 8.5 - 10.2 mg/dL 9.6 Bilirubin, Total 0.2 - 1.3 mg/dL 0.7 Alkaline Phosphatase 34 - 123 U/L 61 AST 13 - 35 U/L 91 (H) ALT 7 - 38 U/L 97 (H) Glucose 74 - 99 mg/dL 195 (H) BUN 7 - 21 mg/dL 12 Creatinine 0.58 - 0.96 mg/dL 0.60 Sodium 136 - 144 mmol/L 134 (L) Potassium 3.7 - 5.1 mmol/L 4.6 Chloride 97 - 105 mmol/L 98 CO2 22 - 30 mmol/L 24 Anion Gap 9 - 18 mmol/L 12 eGFR >=60 mL/min/1.73m 101 Color Yellow Yellow Clarity Clear Clear Glucose, Urine Trace, Negative Negative Bilirubin, Urine Negative Negative Ketones, Urine Trace, Negative Negative Specific [place], Ur 1.005 - 1.030 1.021 Hemoglobin/Blood,Ur Negative, Trace Negative pH, Urine 5.0 - 8.0 6.0 Protein, Urine Trace, Negative Negative Urobilinogen Negative Negative Nitrites Negative Negative Leukest Negative, 25 Tnavi/uL 25 Tanvi/uL WBC, Urine 0-5 /HPF 0-5 /HPF RBC, Urine 0-3 /HPF 0-3 /HPF Epithelial Cells /HPF Few Cholesterol, Total <200 mg/dL 183 Triglyceride <150 mg/dL 206 (H) HDL Cholesterol >39 mg/dL 46 Non HDL Cholesterol <130 mg/dL 137 (H) Fasting Time hrs 14 VLDL Cholesterol <30 mg/dL 41 (H) TC:HDL Ratio <5.10 3.98 LDL Cholesterol <100 mg/dL 96 LDL:HDL Ratio <2.54 2.09 Creatinine, Ur Random (UCRR) 20.0 - 300.0 mg/dL 110.3 Albumin, Urine Random mg/L 14.6 Albumin/Creat Ratio <30 mg/g 13 HIV 12 Combo (Ag/Ab) Nonreactive Nonreactive HIV 1/2 Ab HIV Interpretation Hemoglobin A1C 4.3 - 5.6 % 9.1 (H) Estimated Average Glucose mg/dL 214 Culture 50,000-<100,000 CFU/ml Mixed microbiota (A) 11/02/2022 5:47 PM - Radiology, [place] In Impression IMPRESSION: Osteoarthrosis Enterprise Data Architect: APARNA Transcribe Date/Time: Nov 02 2022 5:44P Dictated by : NICOLE GAYTAN MD This examination was interpreted and the report reviewed and electronically signed by: NICOLE GAYTAN MD on Nov 02 2022 5:45PM EST Results-Findings * * *Final Report* * * DATE OF EXAM: Oct 31 2022 12:17PM WOX [id number] - XR KNEE 4V AP/PA BOTH+LAT/JERONIMO LT / PROCEDURE REASON: multiple diagnoses * * * * Physician Interpretation * * * * PROCEDURE: Left knee INDICATION: Chronic pain of left knee .Chronic worsening left knee pain. Right knee replacement 5 years ago. TECHNIQUE: XR KNEE 4V AP/PA BOTH+LAT/JERONIMO LT COMPARISON: None FINDINGS: Significant medial and mild patellofemoral joint compartment narrowing with tricompartment spur formation. Small enchondroma in the distal femur. No fracture. Small joint effusion. Right TKA is evident. documented in this encounterMary [facility]04-21-2023 History of Present illness Narrative* Mac Olvera MD - 10/31/2022 10:11 AM EDT Patient presents with: Follow Up HPI: Patient presents today for office visit for follow up. DM: Taking metformin 500 mg 3 tabs in the morning. Consistent with taking medication daily. Hasn't been checking sugars due to meter not working correctly. No vision changes. Up to date on eye exam. No foot lesions. Some numbness in toes on left foot. No pain. No polyuria or polydipsia. Left knee pain. Cannot put any weight on it. Using walker to ambulate. Has not seen Ortho. Total knee replacement done on right knee. No trauma. Can lock up on her. Has been bad for some time but hasbeen worse the last few weeks. No redness or warm. Does not want to do physical therapy. Last a1c was 7.0. Steroids bother her stomach. Avoiding nsaids with her meds. HTN: Does not monitor BP Misses nightly doses sometimes Admits to chest pain and shortness of breath all the time. Followed by Cardiology, Dr. Delacruz. Refers to getting weird headaches typically in the afternoon. Dizziness occasionally. No palpitations Edema to left leg occasionally. Last saw Cardiology on 06/30/22. ECG in the office 06/30/2022: Normal sinus rhythm with normal axis. Nonspecific ST-T wave changes noted in leads V1 to V3 HLD: Taking Rosuvastatin. Misses doses sometimes. No myalgias. Still smoking. MEDICATIONS: Current Outpatient Medications Medication Sig rosuvastatin (CRESTOR) 20 mg tablet Take 1 tablet by mouth once daily. nitroglycerin sublingual (NITROQUICK) 0.4 mg SL tablet Dissolve 1 tablet under the tongue as neededfor chest pain. albuterol HFA (PROVENTIL HFA, VENTOLIN HFA) 90 mcg/actuation inhaler Inhale 2 Puffs as instructed every 6 hours as needed for wheezing/shortness of breath. metFORMIN ER (GLUCOPHAGE XR) 500 mg 24 hr tablet Take 3 tablets by mouth daily with breakfast. hydrALAZINE (APRESOLINE) 10 mg tablet Take 1 tablet by mouth twice daily. lisinopril (ZESTRIL, PRINIVIL) 20 mg tablet Take 1 tablet by mouth once daily. metoprolol succinate ER (TOPROL XL) 50 mg 24 hr tablet Take 1 tablet by mouth once daily. gabapentin (NEURONTIN) 300 mg capsule Take 1 capsule by mouth daily at bedtime for 180 days. aspirin, enteric coated (ASPIRIN, ENTERIC COATED) 81 mg EC tablet Take 2 tablets by mouth once daily. clopidogrel (PLAVIX) 75 mg tablet Take 1 tablet by mouth once daily. Blood-Glucose Meter (FrontierreUCH ULTRA2 METER) USE DIRECTED blood sugar diagnostic (BLOOD GLUCOSE TEST) test strip Test blood sugar(s) 1 times daily. Dx: Type 2 DM - Uncontrolled E11.65 Insulin: No Lancets lancets Test blood sugar(s) 1 times daily. Dx: Type 2 DM - Uncontrolled E11.65 Insulin: No ipratropium-albuterol (DUONEB) 0.5 mg-3 mg(2.5 mg base)/3 mL nebu Inhale 3 mL as instructed four times daily. No current facility-administered medications for this visit. ALLERGIES: ALLERGIES Allergen Reactions Penicillins Hives, Swelling Nickel Other: See Comments Metal jewelry PAST MEDICAL HISTORY Diagnosis Date Chronic back pain Cigarette smoker Colon polyps Coronary artery disease Diarrhea Essential hypertension Fatty liver ultra sound 2014 Hyperglycemia Hyperlipidemia Obesity Preinfarction syndrome (HCC) Tobacco abuse PAST SURGICAL HISTORY Procedure Laterality Date CABG (2) VEIN GRAFTS & ARTERIAL GRAFT(S 10/17/15 DELIVERY ONLY , low transverse CHOLECYSTECTOMY HX maybe COLONOSCOPY 11/27/2017 COLONOSCOPY FLX DX W/COLLJ SPEC WHEN PFRMD 05/17/15 Colonoscopy [facility] outpt ESOPHAGOGASTRODUODENOSCOPY TRANSORAL DIAGNOSTIC 05/17/15 EGD [facility] outpt ORTHOPEDICS SURGERY HX Left RCR PAST SURGICAL HISTORY OF Bilateral knee arthroscopy PAST SURGICAL HISTORY OF lumbar pain injections PAST SURGICAL HISTORY OF Repair tendon/muscle arm-left rotator cuff surgery TONSILLECTOMY AND ADENOIDECTOMY HX TONSILLECTOMY HX TOTAL KNEE REPLACEMENT right TUBAL LIGATION HX FAMILY HISTORY Problem Relation Age of Onset other (congestive heart failure) Mother other (CKD) Mother other (renal failure) Mother Ischemic Heart Disease Father Hypertension Daughter lung Cancer Maternal Grandfather Social History Tobacco Use Smoking status: Every Day Packs/day: 2.00 Years: 43.00 Pack years: 86.00 Types: Cigarettes Start date: 04/27/1972 Smokeless tobacco: Former Tobacco comments: started smoking at age 11;cigarette; Amount: 20-39 cigs/day; 1 1/2 - 2 ppd x 43 years; Vaping Use Vaping Use: Never used Substance Use Topics Alcohol use: Yes Alcohol/week: 5.0 - 30.0 standard drinks Types: 2 - 3 Cans of Beer (12oz) per week Comment: 2-3 x per week Drug use: No Reviewed current medications, allergies, past medical history, surgical history, family history andsocial history today. REVIEW OF SYSTEMS All other reviewed and negative other than HPI. HEALTH MAINTENANCE: Reviewed health maintenance issues today and recommended the following in detail. COVID-19 VACCINE(1) Never done HIV SCREENING Never done BP CONTROLLED (<130/80) Never done SHINGRIX VACCINE(1 of 2) Never done PNEUMOCOCCAL(2 - PCV) due on 08/02/2015 PAP TESTING -rec. MAMMOGRAM due on 08/21/2021 LUNG CANCER SCREENING-have recommended DEPRESSION ASSESSMENT Never done URINE ALBUMIN:CREATININE RATIO due on 09/05/2022 COLORECTAL CANCER SCREENING -getting soon. VITALS: BP 130/82 Pulse 99 Ht 167.6 cm (5' 6) Wt 132.4 kg (291 lb 12.8 oz) SpO2 96% BMI 47.10 kg/m Last 4 Encounter Wt Readings: Date: Wt: 09/30/2022 133.8 kg (295 lb) 06/30/2022 135.6 kg (299 lb) 12/02/2021 134.3 kg (296 lb) 12/17/2020 133.6 kg (294 lb 8 oz) PHYSICAL EXAMINATION: General appearance: Well appearing, alert, in no acute distress, well-hydrated, well nourished. Skin: Skin color, texture, turgor normal, no suspicious rashes or lesions Head: Normocephalic, no masses, lesions, tenderness or abnormalities Eyes: Anicteric sclera. Pupils are equally round and reactive to light. Extraocular movements are intact. Lungs: Lungs clear to auscultation. No wheezing, rhonchi, rales Heart: RRR without murmur, gallop, or rubs. No ectopy Abdomen: Normal abdominal exam, Abdomen soft, non-tender. Bowel sounds normal. No masses, organomegaly Extremities: No deformities, edema, skin discoloration, clubbing or cyanosis. Good capillary refill. Musculoskeletal: No joint swelling, deformity, or tenderness Peripheral pulses: Normal ASSESSMENT/PLAN: 1. Primary hypertension - ICD9: 401.9, ICD10: I10 (primary diagnosis) - good control - Continue current medication(s) - Goal of BP <130/80 2. Screening for HIV (human immunodeficiency virus) - ICD9: V73.89, ICD10: Z11.4 - HIV 1 2 COMBO(AG/AB),WITH REFLEX TO DIFFERENTIATION 3. Chronic pain of left knee - ICD9: 719.46, 338.29, ICD10: M25.562, G89.29 - consider ortho - XR KNEE GENERAL 4V AP BOTH/PA BOTH/LAT/MERC LEFT - DICLOFENAC 1 % TOPICAL GEL 4. Coronary artery disease involving upper [place] coronary artery of upper [place] heart without angina pectoris- ICD9: 414.01, ICD10: I25.10 - per cardio 5. S/P CABG x 2 - ICD9: V45.81, ICD10: Z95.1 - per cardio 6. Other hyperlipidemia - ICD9: 272.4, ICD10: E78.49 - check labs. 7. Type 2 diabetes mellitus without complication, without long-term current use of insulin (HCC) - ICD9: 250.00, ICD10: E11.9 - Controlled - Continue current medications - ALBUMIN/CREAT RATIO RND UR - HGB A1C - LIPID PANEL BASIC - COMP METABOLIC PANEL - CBC + DIFF 8. Urinary frequency - ICD9: 788.41, ICD10: R35.0 chronic - URINALYSIS, WITH MICROSCOPIC - URINE CULTURE Mac Olvera MD documented in this encounterMary [facility]04-13-2023 Miscellaneous Notes* Telephone Encounter - Brandi Randall - 10/23/2022 10:38 AM EDT Patient has been identified by name and date of : Yes Requested Prescriptions Pending Prescriptions Disp Refills rosuvastatin (CRESTOR) 20 mg tablet 30 tablet 5 Sig: Take 1 tablet by mouth once daily. nitroglycerin sublingual (NITROQUICK) 0.4 mg SL tablet Sig: Dissolve 1 tablet under the tongue as needed for chest pain. albuterol HFA (PROVENTIL HFA, VENTOLIN HFA) 90 mcg/actuation inhaler Sig: Inhale 2 Puffs as instructed every 6 hours as needed for wheezing/shortness of breath. RUSLAN-02/05/22 Labs-03/18/22 NOV-10/31/21 RX INSTRUCTIONS: Patient aware RX will be sent to pharmacy. No need to notify patient. Brandi Randall documented in this encounterMary [facility] Hospital03-21-2023 History of Present illness Narrative* Delicia Bertrand PA-C - 09/30/2022 10:38 AM EDT HISTORY AND PHYSICAL Carol Nolan 1960 REFERRING PHYSICIAN: No ref. provider found CHIEF COMPLAINT: Consult (EGD and colonoscopy, check hernia) HPI: The patient is a 61 year old female referred for endoscopy. Carol notes a history of colon polyps and is due for surveillance colonoscopy. Patient denies aweight changes, blood in stools, blacktarry stools . Denies family history of colon issues. The patient NOTES GERD and has also noted intermittent abdominal discomfort and fluctuation in her bowel habits. States she was told at one point in the past that she has a hernia and wonders if thiscould be contributing to symptoms. She is unsure when that might have been mentioned or diagnosed. Prior scans reviewed in Epic without mention of mass or hernia. Patient notes sometimes feeling bulge /fullness in upper/mid abdomen. Denies nausea, vomiting or other obstructive symptoms. Carol has undergone prior endoscopy. Last EGD and colonoscopy 12/10/[address] Velasquez under [facility]. Patient's past medical history is significant for hypertension, hyperlipidemia, obesity, coronary artery disease, tobacco use. She follows with Dr. Olvera in primary care for her chronic medical conditions. PAST MEDICAL HISTORY Diagnosis Date Chronic back pain Cigarette smoker Colon polyps Coronary artery disease Diarrhea Essential hypertension Fatty liver ultra sound 2014 Hyperglycemia Hyperlipidemia Obesity Preinfarction syndrome (HCC) Tobacco abuse PAST SURGICAL HISTORY Procedure Laterality Date CABG (2) VEIN GRAFTS & ARTERIAL GRAFT(S 10/17/15 DELIVERY ONLY , low transverse CHOLECYSTECTOMY HX maybe 1989' COLONOSCOPY 11/27/2017 COLONOSCOPY FLX DX W/COLLJ SPEC WHEN PFRMD 05/17/15 Colonoscopy [facility] outpt ESOPHAGOGASTRODUODENOSCOPY TRANSORAL DIAGNOSTIC 05/17/15 EGD [facility] outpt ORTHOPEDICS SURGERY HX Left RCR PAST SURGICAL HISTORY OF Bilateral knee arthroscopy PAST SURGICAL HISTORY OF lumbar pain injections PAST SURGICAL HISTORY OF Repair tendon/muscle arm-left rotator cuff surgery TONSILLECTOMY AND ADENOIDECTOMY HX TONSILLECTOMY HX TOTAL KNEE REPLACEMENT right TUBAL LIGATION HX Current Outpatient Medications Medication Sig metFORMIN ER (GLUCOPHAGE XR) 500 mg 24 hr tablet Take 3 tablets by mouth daily with breakfast. hydrALAZINE (APRESOLINE) 10 mg tablet Take 1 tablet by mouth twice daily. lisinopril (ZESTRIL, PRINIVIL) 20 mg tablet Take 1 tablet by mouth once daily. metoprolol succinate ER (TOPROL XL) 50 mg 24 hr tablet Take 1 tablet by mouth once daily. gabapentin (NEURONTIN) 300 mg capsule Take 1 capsule by mouth daily at bedtime for 180 days. aspirin, enteric coated (ASPIRIN, ENTERIC COATED) 81 mg EC tablet Take 2 tablets by mouth once daily. clopidogrel (PLAVIX) 75 mg tablet Take 1 tablet by mouth once daily. rosuvastatin (CRESTOR) 20 mg tablet Take 1 tablet by mouth once daily. albuterol HFA (PROVENTIL HFA, VENTOLIN HFA) 90 mcg/actuation inhaler Inhale 2 Puffs as instructed every 6 hours as needed for wheezing/shortness of breath. nitroglycerin sublingual (NITROQUICK) 0.4 mg SL tablet Dissolve 1 tablet under the tongue as neededfor chest pain. Blood-Glucose Meter (ConveneTOUCH ULTRA2 METER) USE DIRECTED blood sugar diagnostic (BLOOD GLUCOSE TEST) test strip Test blood sugar(s) 1 times daily. Dx: Type 2 DM - Uncontrolled E11.65 Insulin: No Lancets lancets Test blood sugar(s) 1 times daily. Dx: Type 2 DM - Uncontrolled E11.65 Insulin: No ipratropium-albuterol (DUONEB) 0.5 mg-3 mg(2.5 mg base)/3 mL nebu Inhale 3 mL as instructed four times daily. No current facility-administered medications for this visit. ALLERGIES: Penicillins and Nickel PERSONAL HISTORY: Social History Tobacco Use Smoking status: Every Day Packs/day: 2.00 Years: 43.00 Pack years: 86.00 Types: Cigarettes Start date: 04/27/1972 Smokeless tobacco: Former Tobacco comments: started smoking at age 11;cigarette; Amount: 20-39 cigs/day; 1 1/2 - 2 ppd x 43 years; Vaping Use Vaping Use: Never used Substance Use Topics Alcohol use: Yes Alcohol/week: 5.0 - 30.0 standard drinks Types: 2 - 3 Cans of Beer (12oz) per week Comment: 2-3 x per week Drug use: No FAMILY HISTORY: FAMILY HISTORY Problem Relation Age of Onset other (congestive heart failure) Mother other (CKD) Mother other (renal failure) Mother Ischemic Heart Disease Father Hypertension Daughter lung Cancer Maternal Grandfather REVIEW OF SYMPTOMS: The review of systems data was entered by the nurse and reviewed by me Nursing Notes: Violeta Quiñones LPN 09/30/2022 10:43 AM Signed REVIEW OF SYSTEMS: General: The patient notes fatigue, denies weight loss, notes weight gain, notes feeling hot, and denies feelings of cold. Eyes: The patient denies glaucoma, denies eye injury/surgery, does not wear glasses or contacts. Ear/Nose/Throat: The patient notes allergies, denies hayfever, notes ear infections, and denies bloody noses. Cardiovascular: The patient notes chest pain, notes heart disease, notes high blood pressure,notes cardiac stent, denies prior heart attack, notes irregular heart beat, notes high cholesterol, deniespoor circulation, denies heart failure, other cardiac issues, notes claudication, denies cold feet,notes peripheral arterial stent. Respiratory: The patient denies tuberculosis, denies pneumonia, notes frequent cough, denies pulmonary embolism, notes shortness of breath, and denies coughing up blood, notes other lung problems. Gastrointestinal: The patient notes difficulty swallowing, denies acid reflux, denies ulcers, denies vomiting, denies jaundice/hepatitis, notes gallbladder problems, denies black or tarry stools, denies hemorrhoids, notes bleeding from rectum, denies diverticulitis, notes constipation, notes diarrhea, notes loss of stool control, and notes hernias. Kidney/Bladder: The patient notes kidney stones, notes urine infections, and bloody urine. Skin: The patient denies a history of skin cancer, notes bleeding/changing moles, and denies a history of skin rash. Neurologic: The patient denies a history of epilepsy/convulsions, notes headaches, denies head/spinal injuries, and denies stroke/TIA. Psychiatric: The patient denies psychiatric medications, denies depression, and denies voices, denies substance abuse. Endocrine: The patient denies thyroid disorders, notes diabetes, and denies hormonal problems. Hematologic: The patient denies a history of bruising, denies bleeding, and denies anemia, denies blood clots. Infections: The patient notes a history of measles and mumps, denies rheumatic fever, and denies sexually transmitted diseases. Musculoskeletal: The patient notes back pain/injury, notes back problems, notes sciatica, notes knee/foot trouble, denies arthritis, or denies gout. When was patient's last Mammogram screening? 2020 Last Colonoscopy: 2017 Violeta Quiñones LPN I have confirmed and edited as necessary, the PFSH and ROS obtained by others. Delicia Bertrand PA-C PHYSICAL EXAMINATION: General: The patient is 61 year old female, well nourished, well hydrated in no acute distress. Thepatient is oriented to time, place, and person. VITALS: Blood pressure 140/62, pulse 106, temperature 36.8 C (98.3 F), height 167.6 cm (5' 6), weight 133.8 kg (295 lb), SpO2 95 %. There is no height or weight on file to calculate BMI. HEENT: Normal cephalic, ataumatic, pupils are equally round, sclera are anicteric, mucous membranesare moist, oropharynx is clear. Neck has no masses, asymmetry or lymphadenopathy. Respiratory: Clear to auscultation and percussion. Normal respiratory excursion and pattern. Cardiac: Examination is regular rate and rhythm. Normal S1/S2 Abdominal exam: Soft, nontender, with no palpable masses. No hepatosplenomegaly. +some fullness/fascial weakness mid abdomen Extremities: no clubbing, cyanosis or edema. No adenopathy. LABORATORY VALUES: As Noted RADIOLOGIC STUDIES: As Noted Assessment IMPRESSION: history of colon polyps, encounter for surveillance colonoscopy, upper abdominal discomfort, GERD, ?abd wall hernia PLAN: I have reviewed my findings with the surgeon. Will plan for upper and lower endoscopy. We discussed the risks and benefits of the planned endoscopy. I have informed the patient that complications can occur including failure to complete the endoscopy and perforation. The patient had the opportunity to ask questions concerning the planned endoscopy. My staff has also explained the procedure to the patient in understandable terms and has given the patient printed material concerning the procedure. The patient freely consents to surgery. The patient was offered a surgery/procedure at a [facility] facility. I have counseled the patient regarding the risk of exposure to and/or potential harm posed by the COVID-19 virus with having a surgery/procedure at this time versus the risk of delaying the surgery/procedure. It is not possible to know either the risk of delaying the surgery or procedure or chance of getting an infection with perfect accuracy, but a joint decision was made between the patient and myself to proceed at this time with endoscopy. I plan to use Golytely bowel preparation The patient has medical comorbidities for which we will plan for the procedure to be performed under [facility]. Recommend consult with surgeon for abdominal wall bulge/possible hernia Diagnoses: (Z12.11) Encounter for screening for malignant neoplasm of colon (primary encounter diagnosis) (Z86.010) History of colonic polyps (E66.01) Morbid obesity (HCC) (R19.00) Abdominal wall bulge (R10.11, R10.12) Bilateral upper abdominal discomfort (K21.9) Gastroesophageal reflux disease, unspecified whether esophagitis present Consultation requested by Dr. Olvera for an opinion regarding history of colon polyps. My final recommendations will be communicated back to the requesting physician by way of shared Medical record or letter to requesting physician via [place] mail. Delicia Bertrand PA-C documented in this encounterMary [facility] Nurse Note* Violeta Quiñones LPN - 09/30/2022 10:38 AM EDT REVIEW OF SYSTEMS: General: The patient notes fatigue, denies weight loss, notes weight gain, notes feeling hot, and denies feelings of cold. Eyes: The patient denies glaucoma, denies eye injury/surgery, does not wear glasses or contacts. Ear/Nose/Throat: The patient notes allergies, denies hayfever, notes ear infections, and denies bloody noses. Cardiovascular: The patient notes chest pain, notes heart disease, notes high blood pressure,notes cardiac stent, denies prior heart attack, notes irregular heart beat, notes high cholesterol, deniespoor circulation, denies heart failure, other cardiac issues, notes claudication, denies cold feet,notes peripheral arterial stent. Respiratory: The patient denies tuberculosis, denies pneumonia, notes frequent cough, denies pulmonary embolism, notes shortness of breath, and denies coughing up blood, notes other lung problems. Gastrointestinal: The patient notes difficulty swallowing, denies acid reflux, denies ulcers, denies vomiting, denies jaundice/hepatitis, notes gallbladder problems, denies black or tarry stools, denies hemorrhoids, notes bleeding from rectum, denies diverticulitis, notes constipation, notes diarrhea, notes loss of stool control, and notes hernias. Kidney/Bladder: The patient notes kidney stones, notes urine infections, and bloody urine. Skin: The patient denies a history of skin cancer, notes bleeding/changing moles, and denies a history of skin rash. Neurologic: The patient denies a history of epilepsy/convulsions, notes headaches, denies head/spinal injuries, and denies stroke/TIA. Psychiatric: The patient denies psychiatric medications, denies depression, and denies voices, denies substance abuse. Endocrine: The patient denies thyroid disorders, notes diabetes, and denies hormonal problems. Hematologic: The patient denies a history of bruising, denies bleeding, and denies anemia, denies blood clots. Infections: The patient notes a history of measles and mumps, denies rheumatic fever, and denies sexually transmitted diseases. Musculoskeletal: The patient notes back pain/injury, notes back problems, notes sciatica, notes knee/foot trouble, denies arthritis, or denies gout. When was patient's last Mammogram screening? 2020 Last Colonoscopy: 2017 Violeta Quiñones LPN documented in this encounterMary [facility]23 Miscellaneous Notes* Telephone Encounter - Cris Pollard [facility] - 09/25/2022 11:47 AM EDT Pharmacy verified in [facility] Patient has been identified by name and date of : Yes Patient aware RX will be sent to pharmacy. No need to notify patient. Patient phones for refill(s): Requested Prescriptions Pending Prescriptions Disp Refills metFORMIN ER (GLUCOPHAGE XR) 500 mg 24 hr tablet 90 tablet 11 Sig: Take 3 tablets by mouth daily with breakfast. Date of last office visit : 02/05/2022 Labs-03/18/22 Date of next office visit : 10/31/2022 med filled 09/11/21 Last 2 Encounter Wt Readings: Date: Wt: 06/30/2022 135.6 kg (299 lb) 12/02/2021 134.3 kg (296 lb) Not applicable Please advise. Cris Pollard Pss documented in this encounterMary [facility]12[facility] History of Present illness Narrative* Rc Delacruz MD - 06/30/2022 4:00 PM EST Images from the original note were not included. [facility] SE[facility]AL CARDIOLOGY Cardiology ([facility]) [address] [facility] [id number] OUTPATIENT VISIT DATE 06/30/2022 PRIMARY CARE PHYSICIAN: Mac Olvera [address] [place] [address] HISTORY OF PRESENT ILLNESS: Ms. Nolan is a 61 year old morbidly obese woman with a history of coronary artery disease and prior coronary bypass grafting in 2016 subsequent coronary intervention of the right coronary artery in February 2019, hypertension, diabetes ([id number]), dyslipidemia, and ongoing smoking of 2 packs of cigarettes a day who presents for routine follow-up. She continues to be limited by severe back pain. She describes severe fatigue due to poor sleeping habits. She continues to smoke about 2 packs of cigarettes a day. She complains of diffuse achiness and ongoing chest pain. She has had no improvement in symptoms. She does not get worsening chest pain with activity. There seem to be no e xacerbating relieving factors. PAST MEDICAL HISTORY Diagnosis Date Chronic back pain Cigarette smoker Colon polyps Coronary artery disease Diarrhea Essential hypertension Fatty liver ultra sound 2014 Hyperglycemia Hyperlipidemia Obesity Preinfarction syndrome (HCC) Tobacco abuse PAST SURGICAL HISTORY Procedure Laterality Date CABG (2) VEIN GRAFTS & ARTERIAL GRAFT(S 10/17/15 DELIVERY ONLY , low transverse CHOLECYSTECTOMY HX maybe COLONOSCOPY 11/27/2017 COLONOSCOPY FLX DX W/COLLJ SPEC WHEN PFRMD 05/17/15 Colonoscopy [facility] outpt ESOPHAGOGASTRODUODENOSCOPY TRANSORAL DIAGNOSTIC 05/17/15 EGD [facility] outpt ORTHOPEDICS SURGERY HX Left RCR PAST SURGICAL HISTORY OF Bilateral knee arthroscopy PAST SURGICAL HISTORY OF lumbar pain injections PAST SURGICAL HISTORY OF Repair tendon/muscle arm-left rotator cuff surgery TONSILLECTOMY AND ADENOIDECTOMY HX TONSILLECTOMY HX TOTAL KNEE REPLACEMENT right TUBAL LIGATION HX SOCIAL HISTORY Social History Tobacco Use Smoking status: Every Day Packs/day: 2.00 Years: 43.00 Pack years: 86.00 Types: Cigarettes Start date: 04/27/1972 Smokeless tobacco: Former Tobacco comments: started smoking at age 11;cigarette; Amount: 20-39 cigs/day; 1 1/2 - 2 ppd x 43 years; Substance Use Topics Alcohol use: Yes Alcohol/week: 5.0 - 30.0 standard drinks Types: 2 - 3 Cans of Beer (12oz) per week Comment: 2-3 x per week Drug use: No FAMILY HISTORY Problem Relation Age of Onset other (congestive heart failure) Mother other (CKD) Mother other (renal failure) Mother Ischemic Heart Disease Father Hypertension Daughter lung Cancer Maternal Grandfather ALLERGIES: ALLERGIES Allergen Reactions Penicillins Hives, Swelling Nickel Other: See Comments Metal jewelry MEDICATIONS: aspirin, enteric coated (ASPIRIN, ENTERIC COATED) 81 mg EC tablet Take 2 tablets by mouth once daily. clopidogrel (PLAVIX) 75 mg tablet Take 1 tablet by mouth once daily. hydrALAZINE (APRESOLINE) 10 mg tablet Take 1 tablet by mouth twice daily. lisinopril (ZESTRIL, PRINIVIL) 20 mg tablet Take 1 tablet by mouth once daily. rosuvastatin (CRESTOR) 20 mg tablet Take 1 tablet by mouth once daily. metoprolol succinate ER (TOPROL XL) 50 mg 24 hr tablet Take 1 tablet by mouth once daily. albuterol HFA (PROVENTIL HFA, VENTOLIN HFA) 90 mcg/actuation inhaler Inhale 2 Puffs as instructed every 6 hours as needed for wheezing/shortness of breath. gabapentin (NEURONTIN) 300 mg capsule Take 1 capsule by mouth daily at bedtime for 180 days. nitroglycerin sublingual (NITROQUICK) 0.4 mg SL tablet Dissolve 1 tablet under the tongue as neededfor chest pain. metFORMIN ER (GLUCOPHAGE XR) 500 mg 24 hr tablet Take 3 tablets by mouth daily with breakfast. Blood-Glucose Meter (FrontierreUCH ULTRA2 METER) USE DIRECTED blood sugar diagnostic (BLOOD GLUCOSE TEST) test strip Test blood sugar(s) 1 times daily. Dx: Type 2 DM - Uncontrolled E11.65 Insulin: No Lancets lancets Test blood sugar(s) 1 times daily. Dx: Type 2 DM - Uncontrolled E11.65 Insulin: No ipratropium-albuterol (DUONEB) 0.5 mg-3 mg(2.5 mg base)/3 mL nebu Inhale 3 mL as instructed four times daily. REVIEW OF SYSTEMS: Review of Systems Constitutional: Positive for malaise/fatigue. Negative for chills, fever and weight loss. HENT: Negative for hearing loss and sore throat. Eyes: Negative for blurred vision and double vision. Respiratory: Positive for shortness of breath. Negative for cough, sputum production and wheezing. Cardiovascular: Positive for chest pain, palpitations and leg swelling. Negative for orthopnea, claudication and PND. Gastrointestinal: Negative. Genitourinary: Negative for dysuria, frequency, hematuria and urgency. Musculoskeletal: Positive for myalgias. Skin: Negative. Neurological: Negative for dizziness, seizures, loss of consciousness, weakness and headaches. Endo/Heme/Allergies: Negative for environmental allergies. Does not bruise/bleed easily. Psychiatric/Behavioral: Negative for depression. PHYSICAL EXAMINATION: BP 130/80 (BP Site: Right Arm, BP Position: Sitting, BP Cuff Size: Large Adult) Pulse 88 Wt 135.6 kg (299 lb) BMI 48.26 kg/m General: Pleasant morbidly obese woman sitting appears comfortable in no apparent distress. She is alert and oriented x3 HEENT: Carotid upstrokes are brisk bilateral without bruits. No appreciable JVD. Thyroid is palpable and not enlarged. Pulmonary: Lungs are clear no rales, wheezes, rhonchi Cardiovascular: Normal S1-S2 with tachycardia. Otherwise normal rhythm. No murmurs, rubs, or gallops appreciate Extremities: Warm, well-perfused, no lower extremity edema. 2+ distal pulses. CARDIOVASCULAR MEDICINE TESTING: ECG in the office 06/30/2022: Normal sinus rhythm with normal axis. Nonspecific ST-T wave changes noted in leads V1 to V3 ECG in the office 12/17/2020: Normal sinus rhythm with normal axis and intervals. Nonspecific T wave changes noted in leads V1 and V2. Cardiac catheterization [facility] 10/05/2019: Normal left ventricular systolic function LVEF 65% Elevated left ventricular EDP Single-vessel coronary artery disease of the LAD, proximal 75% stenosis LCx: Nonobstructive disease, OM1 proximal mild luminal irregularities Widely patent proximal and mid RCA stents, distal RCA transition to PDA with less than 50% stenosis ORTIZ-LAD not reimaged as it was patent and a 2019 Echocardiogram 01/07/2021 - Technically difficult exam due to suboptimal positioning and body habitus. - Exam indication: CAD - The left ventricle is small. Left ventricular systolic function is normal. EF = 70 5% (2D 4-ch.) Grade I left ventricular diastolic dysfunction. - The right ventricle is normal in size. Right ventricular systolic function is normal. - There are no significant valvular abnormalities. - The patient has not had a prior CC echocardiographic exam for comparison. Zio Monitor 01/22/2021 Patient had a min HR of 50 bpm, max HR of 207 bpm, and avg HR of 76 bpm. Predominant underlying rhythm was Sinus Rhythm. - 1 run of Ventricular Tachycardia occurred lasting 11 beats with a max rate of 207 bpm (avg 174 bpm). - 3 Supraventricular Tachycardia runs occurred, the run with the fastest interval [id number] beats with a max rate of 135 bpm (avg 108 bpm); the run with the fastest interval was also the longest. Some episodes of Supraventricular Tachycardia may be possible AtrialTachycardia with variable block. - Isolated SVEs were rare (<1.0%), SVE Couplets were rare (<1.0%), and SVE Triplets were rare(<1.0%). Isolated VEs were rare (<1.0%), VE Couplets were rare (<1.0%), and no VE Tripletswere present Carotid Ultrasound 12/13/2021: IMPRESSION RIGHT SIDE Common carotid artery: Plaque visualized without evidence of hemodynamically significant stenosis. Internal carotid artery: 40-59% stenosis. Vertebral artery: Patent and antegrade flow noted. Subclavian artery: Plaque visualized without evidence of hemodynamically significant stenosis. LEFT SIDE Internal carotid artery: 20-39% stenosis. Vertebral artery: Patent and antegrade flow noted. IMPRESSION: Ms. Nolan is a 61 year old woman with known coronary artery disease prior coronary bypass grafting in 2016 with a ORTIZ to the LAD and SVG to RCA. She underwent cardiac catheterization in February 2019. At that time, she was found to have an occluded SVG graft to the RCA. The [place] right coronary artery was treated with drug-eluting stent placement. Due to ongoing complaints of chest pain and shortness of breath she underwent repeat cardiac catheterization in September 2019. The latter as noted above demonstrating patent RCA stents and otherwise unchanged from prior study. She is also treated for diabetes, hypertension, and dyslipidemia. PLAN AND RECOMMENDATIONS: 1. Coronary artery disease involving upper [place] coronary artery of upper [place] heart without angina pectoris- ICD9: 414.01, ICD10: I25.10 (primary diagnosis) Ongoing symptoms of chest pain without relief on medical therapy. I discussed possible cardiac catheterization. Although, I am concerned due to her history of multiple medical problems. Last catheterization 2020 completed at local hospital. Results of the catheterization not available for review. 2. Primary hypertension - ICD9: 401.9, ICD10: I10 Adequately controlled on current regimen 3. NSVT (nonsustained ventricular tachycardia) - ICD9: 427.1, ICD10: I47.29 4. Other hyperlipidemia - ICD9: 272.4, ICD10: E78.49 Maintained on Crestor 20 mg daily. Fasting blood work from March 2022 was reviewed. LDL cholesterol 95 mg/dL. I recommended increasing Crestor to 40 mg daily and repeating fasting blood work. However, patient has declined. She has had concerns over getting her medications filled properly. She does not want to make medication adjustments at this time. 5. Palpitations - ICD9: 785.1, ICD10: R00.2 - ECG COMPLETE Rc Delacruz MD documented in this encounterMary [facility]09-[facility]22 Miscellaneous Notes* Telephone Encounter - Serjio Chen LPN - 03/21/2022 1:30 PM EDT A1C resulted, see result note sugars are improving, keep up the good work. TC to pt, left message to return call to office. Serjio Chen LPN * Telephone Encounter - Isa Irizarry Ma - 03/20/2022 12:06 PM EDT A1c not resulted yet. Will call pt once result returns. Isa Irizarry Ma * Telephone Encounter - Kandace Lott - 03/19/2022 2:49 PM EDT Left message for patient to return call for results. Spoke with lab client services already and they are adding the A1c. Kandace Lott * Telephone Encounter - Mac Olvera MD - 03/19/2022 2:19 PM EDT Labs are stable. Are they able to add a1c to labs that were drawn. documented in this encounterMary [facility]07-27-2022 History of Present illness Narrative* Mac Olvera MD - 02/05/2022 4:31 PM EDT Patient presents with: Follow Up Diabetes: has only been taking metformin 1 twice a day-discussed ok to take 3 a time and patient will go back to that way HPI: Patient presents today for office visit for follow up. Has seen Cardiology. Had carotid doppler. She is concerned because she feels her supraclavicular area is larger on the right than the left and is sore at times. No redness or warmth. No polyuria or polydipsia. No chest pain or worsening shortness of breath. No edema. Remains on plavix. No new myalgias. Has been having more rectal bleeding again. Was scoped in 2018. No abd pain or dizziness. MEDICATIONS: Current Outpatient Medications Medication Sig clopidogrel (PLAVIX) 75 mg tablet Take 1 tablet by mouth once daily. aspirin, enteric coated (ASPIRIN, ENTERIC COATED) 81 mg EC tablet Take 2 tablets by mouth once daily. gabapentin (NEURONTIN) 300 mg capsule Take 1 capsule by mouth daily at bedtime for 180 days. nitroglycerin sublingual (NITROQUICK) 0.4 mg SL tablet Dissolve 1 tablet under the tongue as neededfor chest pain. metFORMIN ER (GLUCOPHAGE XR) 500 mg 24 hr tablet Take 3 tablets by mouth daily with breakfast. hydrALAZINE (APRESOLINE) 10 mg tablet Take 1 tablet by mouth twice daily. lisinopril (ZESTRIL, PRINIVIL) 20 mg tablet Take 1 tablet by mouth once daily. rosuvastatin (CRESTOR) 20 mg tablet Take 1 tablet by mouth once daily. metoprolol succinate ER (TOPROL XL) 50 mg 24 hr tablet Take 1 tablet by mouth once daily. ipratropium-albuterol (DUONEB) 0.5 mg-3 mg(2.5 mg base)/3 mL nebu Inhale 3 mL as instructed four times daily. Blood-Glucose Meter (FrontierreUCH ULTRA2 METER) USE DIRECTED blood sugar diagnostic (BLOOD GLUCOSE TEST) test strip Test blood sugar(s) 1 times daily. Dx: Type 2 DM - Uncontrolled E11.65 Insulin: No Lancets lancets Test blood sugar(s) 1 times daily. Dx: Type 2 DM - Uncontrolled E11.65 Insulin: No Current Facility-Administered Medications Medication Dose Route Frequency perflutren lipid microspheres 1.3 mL in NaCl (PF) 0.9% 10 mL injection (DEFINITY) INTRAVENOUS DIRECTED PRN sodium chloride 0.9 % (flush) 10 mL (BD POSIFLUSH) 10 mL INTRAVENOUS DIRECTED PRN ALLERGIES: ALLERGIES Allergen Reactions Penicillins Hives, Swelling Nickel Other: See Comments Metal jewelry PAST MEDICAL HISTORY Diagnosis Date Chronic back pain Cigarette smoker Colon polyps Coronary artery disease Diarrhea Essential hypertension Fatty liver ultra sound 2014 Hyperglycemia Hyperlipidemia Obesity Preinfarction syndrome (HCC) Tobacco abuse PAST SURGICAL HISTORY Procedure Laterality Date CABG (2) VEIN GRAFTS & ARTERIAL GRAFT(S 10/17/15 DELIVERY ONLY , low transverse CHOLECYSTECTOMY HX maybe COLONOSCOPY 11/27/2017 COLONOSCOPY FLX DX W/COLLJ SPEC WHEN PFRMD 05/17/15 Colonoscopy [facility] outpt ESOPHAGOGASTRODUODENOSCOPY TRANSORAL DIAGNOSTIC 05/17/15 EGD [facility] outpt ORTHOPEDICS SURGERY HX Left RCR PAST SURGICAL HISTORY OF Bilateral knee arthroscopy PAST SURGICAL HISTORY OF lumbar pain injections PAST SURGICAL HISTORY OF Repair tendon/muscle arm-left rotator cuff surgery TONSILLECTOMY AND ADENOIDECTOMY HX TONSILLECTOMY HX TOTAL KNEE REPLACEMENT right TUBAL LIGATION HX FAMILY HISTORY Problem Relation Age of Onset other (congestive heart failure) Mother other (CKD) Mother other (renal failure) Mother Ischemic Heart Disease Father Hypertension Daughter lung Cancer Maternal Grandfather Social History Tobacco Use Smoking status: Current Every Day Smoker Packs/day: 2.00 Years: 43.00 Pack years: 86.00 Types: Cigarettes Start date: 04/27/1972 Smokeless tobacco: Former User Tobacco comment: started smoking at age 11;cigarette; Amount: 20-39 cigs/day; 1 1/2 - 2 ppd x 43 years; Substance Use Topics Alcohol use: Yes Alcohol/week: 5.0 - 30.0 standard drinks Types: 2 - 3 Cans of Beer (12oz) per week Comment: 2-3 x per week Drug use: No Reviewed current medications, allergies, past medical history, surgical history, family history andsocial history today. REVIEW OF SYSTEMS All other reviewed and negative other than HPI. HEALTH MAINTENANCE: Reviewed health maintenance issues today and recommended the following in detail. DIABETIC FOOT EXAM due on 10/26/2019 PAP TESTING due on 12/13/2019 MAMMOGRAM due on 08/21/2021 LUNG CANCER SCREENING- due VITALS: BP 132/82 Pulse 60 Last 4 Encounter Wt Readings: Date: Wt: 12/02/2021 134.3 kg (296 lb) 12/17/2020 133.6 kg (294 lb 8 oz) 09/18/2020 132.5 kg (292 lb) 03/11/2019 130.6 kg (288 lb) PHYSICAL EXAMINATION: General appearance: Well appearing, alert, in no acute distress, well-hydrated, well nourished. Skin: Skin color, texture, turgor normal, no suspicious rashes or lesions Head: Normocephalic, no masses, lesions, tenderness or abnormalities Neck: Supple, no adenopathy; thyroid symmetric, normal size, no bruits, area she indicates appears to be more of a fat pad. Also has it on the other side although might be slightly bigger. No palpable masses or supraclavicular lymphadenopathy. Lungs: Lungs clear to auscultation. No wheezing, rhonchi, rales Heart: RRR without murmur, gallop, or rubs. No ectopy Abdomen: Normal abdominal exam, Abdomen soft, non-tender. Bowel sounds normal. No masses, organomegaly Extremities: No deformities, edema, skin discoloration, clubbing or cyanosis. Good capillary refill. Feet:Shoes and socks removed, No deformities, ulcers, calluses, normal distal pulses and sensitive to 10 gm monofilament ASSESSMENT/PLAN: 1. NSVT (nonsustained ventricular tachycardia) (HCC) - ICD9: 427.1, ICD10: I47.2 (primary diagnosis) - follow with cardiology 2. Essential hypertension - ICD9: 401.9, ICD10: I10 - good control - Continue current medication(s) - Goal of BP <130/80 - LISINOPRIL 20 MG TABLET 3. Hyperlipidemia, mixed - ICD9: 272.2, ICD10: E78.2 - good control - Continue current medication. - ROSUVASTATIN 20 MG TABLET 4. Shortness of breath - ICD9: 786.05, ICD10: R06.02 - stable. 5. Coronary artery disease involving upper [place] coronary artery of upper [place] heart without angina pectoris- ICD9: 414.01, ICD10: I25.10 - Red flags for re-assessment reviewed with patient in detail. 6. Primary hypertension - ICD9: 401.9, ICD10: I10 - good control - Continue current medication(s) - Goal of BP <130/80 7. Other hyperlipidemia - ICD9: 272.4, ICD10: E78.49 - will follow 8. Tobacco use disorder - ICD9: 305.1, ICD10: F17.200 - Cessation encouraged. - Physiologic and physical aspects of tobacco addiction as well as strategies for quitting were discussed. - Counseling was given focusing on the harmful effects of this addiction especially given the patient's medical condition(s) which will be worsened because of the chemicals in tobacco. - CONSULT [facility]CRE[facility] 9. Type 2 diabetes mellitus without complication, without long-term current use of insulin (HCC) - ICD9: 250.00, ICD10: E11.9 Controlled. - Continue current medications - CBC + DIFF - COMP METABOLIC PANEL - LIPID PANEL BASIC - HGB A1C 10. Carotid artery stenosis, asymptomatic, bilateral - ICD9: 433.10, 433.30, ICD10: I65.23 - follow annually 11. Bilateral carotid artery stenosis - ICD9: 433.10, 433.30, ICD10: I65.23 12. Screening breast examination - ICD9: V76.10, ICD10: Z12.39 - Follow up for annual exam in one year. - MOISES SCREENING 13. Rectal bleeding - ICD9: 569.3, ICD10: K62.5 - see surgery - CONSULT TO GENERAL SURGERY - check CBC 14. Supraclavicular fossa fullness - ICD9: 786.6, ICD10: R22.2 - US HEAD/NECK SOFT TISSUE OTHER Mac Olvera RTO in six months and prn. documented in [facility] encounter[facility] Instructions* Patient Instructions* Ro Royal LPN - 02/05/2022 3:52 PM EDT Username: [email or web address] [email or web address] documented in this encounterMary [facility]07-19-2022 Miscellaneous Notes* Telephone Encounter - Serjio Rosa - 01/28/2022 12:43 PM EDT referral entered 2021 regarding breast pain. left patient message, need to know if this has resolved or if patient still needs to be seen. documented in this encounterMary [facility]06-14-2022 Miscellaneous Notes* Telephone Encounter - Hyacinth Kaur - 12/24/2021 11:56 AM EDT Patient has been identified by name and date of : Yes Patient phones for refill(s): No medications selected for refill. Date of last office visit in primary care: 09/09/2021 Last 2 Encounter Wt Readings: Date: Wt: 12/02/2021 134.3 kg (296 lb) 12/17/2020 133.6 kg (294 lb 8 oz) Previous labs/tests for medication: Not applicable Please advise. Thank you. Hyacinth Pettit Pss documented in this encounterMary [facility]05-23-[facility]22 History of Present illness Narrative* Rc Delacruz MD - 12/02/2021 3:20 PM EDT Images from the original note were not included. [facility] SE[facility]AL CARDIOLOGY Cardiology ([facility]) [address] [facility] [id number] OUTPATIENT VISIT DATE 12/17/2020 PRIMARY CARE PHYSICIAN: Mac Olvera [address] [place] [address] HISTORY OF PRESENT ILLNESS: Ms. Nolan is a 60 year old morbidly obese woman with a history of coronary artery disease and prior coronary bypass grafting in 2016 subsequent coronary intervention of the right coronary artery in February 2019, hypertension, diabetes ([id number]), dyslipidemia, and ongoing smoking of 2 packs of cigarettes a day who presents for routine follow-up. She continues to have multiple medical problems and complaints. She has limited functional capacity due to severe back pain. She continues to have episodes of chest pain. They do not necessarily happen with exertion. She describes an achiness on the left side of her chest. The most recent woke her from sleep around 4:00 in the morning. She has been using nitroglycerin but believes it is old and not useful. She has not had overt symptoms of congestive heart failure including PND, or orthopnea. She does complain of frequent episodesof swelling in her feet. PAST CARDIAC HISTORY: From Dr Carrasquillo Last Note ASHD - CABGx2 (ORTIZ-LAD, SVG-RCA) 2015 HTN HL DM Obesity Tobaccoism PAST MEDICAL HISTORY Diagnosis Date Chronic back pain Cigarette smoker Colon polyps Coronary artery disease Diarrhea Essential hypertension Fatty liver ultra sound 2014 Hyperglycemia Hyperlipidemia Obesity Preinfarction syndrome (HCC) Tobacco abuse PAST SURGICAL HISTORY Procedure Laterality Date CABG (2) VEIN GRAFTS & ARTERIAL GRAFT(S 10/17/15 DELIVERY ONLY , low transverse CHOLECYSTECTOMY HX maybe COLONOSCOPY 11/27/2017 COLONOSCOPY FLX DX W/COLLJ SPEC WHEN PFRMD 05/17/15 Colonoscopy [facility] outpt ESOPHAGOGASTRODUODENOSCOPY TRANSORAL DIAGNOSTIC 05/17/15 EGD [facility] outpt ORTHOPEDICS SURGERY HX Left RCR PAST SURGICAL HISTORY OF Bilateral knee arthroscopy PAST SURGICAL HISTORY OF lumbar pain injections PAST SURGICAL HISTORY OF Repair tendon/muscle arm-left rotator cuff surgery TONSILLECTOMY AND ADENOIDECTOMY HX TONSILLECTOMY HX TOTAL KNEE REPLACEMENT right TUBAL LIGATION HX SOCIAL HISTORY Social History Tobacco Use Smoking status: Current Every Day Smoker Packs/day: 2.00 Years: 43.00 Pack years: 86.00 Types: Cigarettes Start date: 04/27/1972 Smokeless tobacco: Former User Tobacco comment: started smoking at age 11;cigarette; Amount: 20-39 cigs/day; 1 1/2 - 2 ppd x 43 years; Substance Use Topics Alcohol use: Yes Alcohol/week: 5.0 - 30.0 standard drinks Types: 2 - 3 Cans of Beer (12oz) per week Comment: 2-3 x per week Drug use: No FAMILY HISTORY Problem Relation Age of Onset other (congestive heart failure) Mother other (CKD) Mother other (renal failure) Mother Ischemic Heart Disease Father Hypertension Daughter lung Cancer Maternal Grandfather ALLERGIES: ALLERGIES Allergen Reactions Penicillins Hives, Swelling Nickel Other: See Comments Metal jewelry MEDICATIONS: nitroglycerin sublingual (NITROQUICK) 0.4 mg SL tablet Dissolve 1 tablet under the tongue as neededfor chest pain. metFORMIN ER (GLUCOPHAGE XR) 500 mg 24 hr tablet Take 3 tablets by mouth daily with breakfast. Blood-Glucose Meter (ConveneTOUCH ULTRA2 METER) USE DIRECTED blood sugar diagnostic (BLOOD GLUCOSE TEST) test strip Test blood sugar(s) 1 times daily. Dx: Type 2 DM - Uncontrolled E11.65 Insulin: No Lancets lancets Test blood sugar(s) 1 times daily. Dx: Type 2 DM - Uncontrolled E11.65 Insulin: No hydrALAZINE (APRESOLINE) 10 mg tablet Take 1 tablet by mouth twice daily. lisinopril (ZESTRIL, PRINIVIL) 20 mg tablet Take 1 tablet by mouth once daily. rosuvastatin (CRESTOR) 20 mg tablet Take 1 tablet by mouth once daily. metoprolol succinate ER (TOPROL XL) 50 mg 24 hr tablet Take 1 tablet by mouth once daily. ipratropium-albuterol (DUONEB) 0.5 mg-3 mg(2.5 mg base)/3 mL nebu Inhale 3 mL as instructed four times daily. aspirin, enteric coated (ASPIRIN, ENTERIC COATED) 81 mg EC tablet Take 2 tablets by mouth once daily. clopidogrel (PLAVIX) 75 mg tablet Take 1 tablet by mouth once daily. gabapentin (NEURONTIN) 300 mg capsule Take 1 capsule by mouth daily at bedtime for 180 days. VENTOLIN HFA 90 mcg/actuation inhaler Inhale 2 Puffs as instructed every 4 hours as needed for Wheezing/Shortness of Breath. REVIEW OF SYSTEMS: Review of Systems Constitutional: Positive for malaise/fatigue. Negative for chills, fever and weight loss. HENT: Negative for hearing loss and sore throat. Eyes: Negative for blurred vision and double vision. Respiratory: Positive for shortness of breath. Negative for cough, sputum production and wheezing. Cardiovascular: Positive for chest pain, palpitations and leg swelling. Negative for orthopnea, claudication and PND. Gastrointestinal: Negative. Genitourinary: Negative for dysuria, frequency, hematuria and urgency. Musculoskeletal: Positive for myalgias. Skin: Negative. Neurological: Negative for dizziness, seizures, loss of consciousness, weakness and headaches. Endo/Heme/Allergies: Negative for environmental allergies. Does not bruise/bleed easily. Psychiatric/Behavioral: Negative for depression. PHYSICAL EXAMINATION: BP 140/80 (BP Site: Right Arm, BP Position: Sitting, BP Cuff Size: Large Adult) Pulse 72 Wt 134.3 kg (296 lb) BMI 47.78 kg/m General: Pleasant morbidly obese woman sitting appears comfortable in no apparent distress. She is alert and oriented x3 HEENT: Carotid upstrokes are brisk bilateral without bruits. No appreciable JVD. Thyroid is palpable and not enlarged. Pulmonary: Lungs are clear no rales, wheezes, rhonchi Cardiovascular: Normal S1-S2 with tachycardia. Otherwise normal rhythm. No murmurs, rubs, or gallops appreciate Extremities: Warm, well-perfused, no lower extremity edema. 2+ distal pulses. CARDIOVASCULAR MEDICINE TESTING: ECG in the office 12/17/2020: Normal sinus rhythm with normal axis and intervals. Nonspecific T wave changes noted in leads V1 and V2. Cardiac catheterization [facility] 10/05/2019: Normal left ventricular systolic function LVEF 65% Elevated left ventricular EDP Single-vessel coronary artery disease of the LAD, proximal 75% stenosis LCx: Nonobstructive disease, OM1 proximal mild luminal irregularities Widely patent proximal and mid RCA stents, distal RCA transition to PDA with less than 50% stenosis ORTIZ-LAD not reimaged as it was patent and a 2019 Echocardiogram 01/07/2021 - Technically difficult exam due to suboptimal positioning and body habitus. - Exam indication: CAD - The left ventricle is small. Left ventricular systolic function is normal. EF = 70 5% (2D 4-ch.) Grade I left ventricular diastolic dysfunction. - The right ventricle is normal in size. Right ventricular systolic function is normal. - There are no significant valvular abnormalities. - The patient has not had a prior CC echocardiographic exam for comparison. [facility] Monitor 01/22/2021 Patient had a min HR of 50 bpm, max HR of 207 bpm, and avg HR of 76 bpm. Predominant underlying rhythm was Sinus Rhythm. - 1 run of Ventricular Tachycardia occurred lasting 11 beats with a max rate of 207 bpm (avg 174 bpm). - 3 Supraventricular Tachycardia runs occurred, the run with the fastest interval [id number] beats with a max rate of 135 bpm (avg 108 bpm); the run with the fastest interval was also the longest. Some episodes of Supraventricular Tachycardia may be possible AtrialTachycardia with variable block. - Isolated SVEs were rare (<1.0%), SVE Couplets were rare (<1.0%), and SVE Triplets were rare(<1.0%). Isolated VEs were rare (<1.0%), VE Couplets were rare (<1.0%), and no VE Tripletswere present IMPRESSION: Ms. Nolan is a 60 year old woman with known coronary artery disease prior coronary bypass grafting in 2016 with a ORTIZ to the LAD and SVG to RCA. She underwent cardiac catheterization in February 2019. At that time, she was found to have an occluded SVG graft to the RCA. The [place] right coronary artery was treated with drug-eluting stent placement. Due to ongoing complaints of chest pain and shortness of breath she underwent repeat cardiac catheterization in September 2019. The latter as noted above demonstrating patent RCA stents and otherwise unchanged from prior study. She is also treated for diabetes, hypertension, and dyslipidemia. PLAN AND RECOMMENDATIONS: 1. Coronary artery disease involving upper [place] coronary artery of upper [place] heart without angina pectoris- ICD9: 414.01, ICD10: I25.10 (primary diagnosis) I reviewed her testing with her in detail. Her echocardiogram last year showed normal left ventricular function. Her most recent cardiac catheterization was less than 2 years ago which did not demonstrate obstructive lesions. Her event monitor from last year did demonstrate 11 beat run of ventricular tachycardia. She is currently maintained on beta-jocelyn therapy. She is at extremely high risk for repeat cardiac catheterization due to her multiple medical problems. I discussed the possibility of starting Imdur or Ranexa with her. Patient has declined. She would like to continue treating her chest pain with as needed nitroglycerin sublingual. - NITROGLYCERIN 0.4 MG SUBLINGUAL TABLET - PARKING FOR HANDICAPPED 2. Primary hypertension - ICD9: 401.9, ICD10: I10 Borderline control on multidrug regimen 3. Other hyperlipidemia - ICD9: 272.4, ICD10: E78.49 Maintained on Crestor 20 mg daily. 4. Palpitations - ICD9: 785.1, ICD10: R00.2 Likely secondary to SVT and nonsustained VT. 5. Tobacco use disorder - ICD9: 305.1, ICD10: F17.200 - Cessation encouraged. - Physiologic and physical aspects of tobacco addiction as well as strategies for quitting were discussed. - Counseling was given focusing on the harmful effects of this addiction especially given the patient's medical condition(s) which will be worsened because of the chemicals in tobacco. 6. Shortness of breath - ICD9: 786.05, ICD10: R06.02 - PARKING FOR HANDICAPPED 7. ASHD (arteriosclerotic heart disease) - ICD9: 414.00, ICD10: I25.10 - NITROGLYCERIN 0.4 MG SUBLINGUAL TABLET - PARKING FOR HANDICAPPED 8. Carotid artery stenosis, asymptomatic, bilateral - ICD9: 433.10, 433.30, ICD10: I65.23 Patient complaining of painful swelling in her neck. Given her risk factors she has concerns for possible carotid artery stenosis. I have ordered a carotid ultrasound. - US CAROTID ARTERIES [facility] 9. NSVT (nonsustained ventricular tachycardia) ([facility]) - ICD9: 427.1, ICD10: I47.2 Discussed the possibility of a noninvasive ischemic evaluation. Patient does not think she can complete a stress test even pharmacological due to severe back pain. Rc Delacruz MD documented in this encounterMary [facility]03-24-[facility]22 Miscellaneous Notes* Telephone Encounter - Nancy Grant - 10/03/2021 10:42 AM EDT 3rd attempt to schedule - left message to call back to schedule. When patient calls, please schedule appointments listed below, document and close this note. Nancy Grant * Telephone Encounter - Earline Kaur - 09/20/2021 2:55 PM EST 2 nd attempt left message to scheduling all of the following:Set up for mammogram, diagnostic and surgery. Set up labs, xray of spine and ultrasound in a few weeks. Set up face to face in three months with Dr Olvera. Thank you! My Chart message also sent. * Telephone Encounter - Essence Arriaza - 09/14/2021 1:06 PM EST Tried to call PT on 09/14 and left a message for her to call us back to get these scheduled. * Telephone Encounter - Ro Royal LPN - 09/11/2021 2:39 PM EST Set up for mammogram, diagnostic and surgery. Set up labs, xray of spine and ultrasound in a few weeks. Set up face to face in three months with Dr Olvera. Thank you! documented in this encounterMary [facility]03-04-2022 Miscellaneous Notes* Telephone Encounter - Nancy Gil - 09/13/2021 9:30 AM EST I have attempted to contact this patient by phone, Left brief message on home voicemail stating to call [phone] to schedule new patient appointment. Nancy Gidleirvin * Telephone Encounter - Ro Royal LPN - 09/11/2021 2:41 PM EST New referral to pain management. Dx DDD lumbar spine. documented in this encounterMary [facility]09-24-[facility] History of Past illness Narrative* Problem Noted Date Diagnosed Date Resolved Date Obesity, Class III, BMI >= 40 04/05/2018 08/18/2023 Hoarseness 02/05/2018 08/18/2023 Overview: Added automatically from request for surgery [id number] Essential hypertension 04/25/201607/14 Tobacco abuse 05/03/2015 01/19/2017 Skin tag 04/27/2015 01/19/2017 Obesity 12/19/2014 01/19/2017 Fever 08/03/2014 12/01/2014 Overview: - This is of unclear etiology - BCx done and negative so far - Could be reaction to vaccines - Does have some redness to vaccines site Chest pain 08/01/2014 05/31/2015 Overview: - r/o ACS - monitor on telemetry - repeat troponin - cardiology consult Shortness of breath 08/01/2014 08/18/19 Overview: - SOB has been progressive but worse with the onset of the chest pain - CXR showed to acute findings - CT PE study negative for PE - 2D echo showed normal EF - Probably chronic diastolic CHF PFT's showed restrictive deficit. Abdominal pain 08/01/2014 12/01/2014 Overview: - Abdominal pain is very non specific and somehow chronic - She is status post cholecystectomy - Abdominal pain could be from GERD or gastritis or PUD - Empiric PPI - GI work up can be done as an outpatient Diarrhea 01/19/2017 Hyperglycemia 11/08/2015 documented as of this encounter (statuses as of 08/19/2023) [facility] of Past illness Narrative* Problem Noted Date Diagnosed Date Resolved Date Obesity, Class III, BMI >= 40 04/05/2018 08/18/2023 Hoarseness 02/05/2018 08/18/2023 Overview: Added automatically from request for surgery [id number] Essential hypertension 04/25/201607/14 Tobacco abuse 05/03/2015 01/19/2017 Skin tag 04/27/2015 01/19/2017 Obesity 12/19/2014 01/19/2017 Fever 08/03/2014 12/01/2014 Overview: - This is of unclear etiology - BCx done and negative so far - Could be reaction to vaccines - Does have some redness to vaccines site Chest pain 08/01/2014 05/31/2015 Overview: - r/o ACS - monitor on telemetry - repeat troponin - cardiology consult Shortness of breath 08/01/2014 08/18/19 Overview: - SOB has been progressive but worse with the onset of the chest pain - CXR showed to acute findings - CT PE study negative for PE - 2D echo showed normal EF - Probably chronic diastolic CHF PFT's showed restrictive deficit. Abdominal pain 08/01/2014 12/01/2014 Overview: - Abdominal pain is very non specific and somehow chronic - She is status post cholecystectomy - Abdominal pain could be from GERD or gastritis or PUD - Empiric PPI - GI work up can be done as an outpatient Diarrhea 01/19/2017 Hyperglycemia 11/08/2015 documented as of this encounter (statuses as of 08/19/2023) [facility] of Past illness Narrative* Problem Noted Date Diagnosed Date Resolved Date Obesity, Class III, BMI >= 40 04/05/2018 08/18/2023 Hoarseness 02/05/2018 08/18/2023 Overview: Added automatically from request for surgery [id number] Essential hypertension 04/25/201607/14 Tobacco abuse 05/03/2015 01/19/2017 Skin tag 04/27/2015 01/19/2017 Obesity 12/19/2014 01/19/2017 Fever 08/03/2014 12/01/2014 Overview: - This is of unclear etiology - BCx done and negative so far - Could be reaction to vaccines - Does have some redness to vaccines site Chest pain 08/01/2014 05/31/2015 Overview: - r/o ACS - monitor on telemetry - repeat troponin - cardiology consult Shortness of breath 08/01/2014 08/18/19 Overview: - SOB has been progressive but worse with the onset of the chest pain - CXR showed to acute findings - CT PE study negative for PE - 2D echo showed normal EF - Probably chronic diastolic CHF PFT's showed restrictive deficit. Abdominal pain 08/01/2014 12/01/2014 Overview: - Abdominal pain is very non specific and somehow chronic - She is status post cholecystectomy - Abdominal pain could be from GERD or gastritis or PUD - Empiric PPI - GI work up can be done as an outpatient Diarrhea 01/19/2017 Hyperglycemia 11/08/2015 documented as of this encounter (statuses as of 08/27/2023) [facility] illness Narrative* Problem Noted Date Diagnosed Date Resolved Date Obesity, Class III, BMI >= 40 04/05/2018 08/18/2023 Hoarseness 02/05/2018 08/18/2023 Overview: Added automatically from request for surgery [id number] Essential hypertension 04/25/201607/14 Tobacco abuse 05/03/2015 01/19/2017 Skin tag 04/27/2015 01/19/2017 Obesity 12/19/2014 01/19/2017 Fever 08/03/2014 12/01/2014 Overview: - This is of unclear etiology - BCx done and negative so far - Could be reaction to vaccines - Does have some redness to vaccines site Chest pain 08/01/2014 05/31/2015 Overview: - r/o ACS - monitor on telemetry - repeat troponin - cardiology consult Shortness of breath 08/01/2014 08/18/19 Overview: - SOB has been progressive but worse with the onset of the chest pain - CXR showed to acute findings - CT PE study negative for PE - 2D echo showed normal EF - Probably chronic diastolic CHF PFT's showed restrictive deficit. Abdominal pain 08/01/2014 12/01/2014 Overview: - Abdominal pain is very non specific and somehow chronic - She is status post cholecystectomy - Abdominal pain could be from GERD or gastritis or PUD - Empiric PPI - GI work up can be done as an outpatient Diarrhea 01/19/2017 Hyperglycemia 11/08/2015 documented as of this encounter (statuses as of 08/27/2023) [facility] Narrative* Problem Noted Date Diagnosed Date Resolved Date Obesity, Class III, BMI >= 40 04/05/2018 08/18/2023 Hoarseness 02/05/2018 08/18/2023 Overview: Added automatically from request for surgery [id number] Essential hypertension 04/25/201607/14 Tobacco abuse 05/03/2015 01/19/2017 Skin tag 04/27/2015 01/19/2017 Obesity 12/19/2014 01/19/2017 Fever 08/03/2014 12/01/2014 Overview: - This is of unclear etiology - BCx done and negative so far - Could be reaction to vaccines - Does have some redness to vaccines site Chest pain 08/01/2014 05/31/2015 Overview: - r/o ACS - monitor on telemetry - repeat troponin - cardiology consult Shortness of breath 08/01/2014 08/18/19 24 Overview: - SOB has been progressive but worse with the onset of the chest pain - CXR showed to acute findings - CT PE study negative for PE - 2D echo showed normal EF - Probably chronic diastolic CHF PFT's showed restrictive deficit. Abdominal pain 08/01/2014 12/01/2014 Overview: - Abdominal pain is very non specific and somehow chronic - She is status post cholecystectomy - Abdominal pain could be from GERD or gastritis or PUD - Empiric PPI - GI work up can be done as an outpatient Diarrhea 01/19/2017 Hyperglycemia 11/08/2015 documented as of this encounter (statuses as of 09/09/2023) [facility] Narrative* Problem Noted Date Diagnosed Date Resolved Date Obesity, Class III, BMI >= 40 04/05/2018 08/18/2023 Hoarseness 02/05/2018 08/18/2023 Overview: Added automatically from request for surgery [id number] Essential hypertension 04/25/201607/14 Tobacco abuse 05/03/2015 01/19/2017 Skin tag 04/27/2015 01/19/2017 Obesity 12/19/2014 01/19/2017 Fever 08/03/2014 12/01/2014 Overview: - This is of unclear etiology - BCx done and negative so far - Could be reaction to vaccines - Does have some redness to vaccines site Chest pain 08/01/2014 05/31/2015 Overview: - r/o ACS - monitor on telemetry - repeat troponin - cardiology consult Shortness of breath 08/01/2014 08/18/19 Overview: - SOB has been progressive but worse with the onset of the chest pain - CXR showed to acute findings - CT PE study negative for PE - 2D echo showed normal EF - Probably chronic diastolic CHF PFT's showed restrictive deficit. Abdominal pain 08/01/2014 12/01/2014 Overview: - Abdominal pain is very non specific and somehow chronic - She is status post cholecystectomy - Abdominal pain could be from GERD or gastritis or PUD - Empiric PPI - GI work up can be done as an outpatient Diarrhea 01/19/2017 Hyperglycemia 11/08/2015 documented as of this encounter (statuses as of 09/09/2023) [facility] Narrative* Problem Noted Date Diagnosed Date Resolved Date Obesity, Class III, BMI >= 40 04/05/2018 08/18/2023 Hoarseness 02/05/2018 08/18/2023 Overview: Added automatically from request for surgery [id number] Essential hypertension 04/25/201607/14 Tobacco abuse 05/03/2015 01/19/2017 Skin tag 04/27/2015 01/19/2017 Obesity 12/19/2014 01/19/2017 Fever 08/03/2014 12/01/2014 Overview: - This is of unclear etiology - BCx done and negative so far - Could be reaction to vaccines - Does have some redness to vaccines site Chest pain 08/01/2014 05/31/2015 Overview: - r/o ACS - monitor on telemetry - repeat troponin - cardiology consult Shortness of breath 08/01/2014 08/18/19 Overview: - SOB has been progressive but worse with the onset of the chest pain - CXR showed to acute findings - CT PE study negative for PE - 2D echo showed normal EF - Probably chronic diastolic CHF PFT's showed restrictive deficit. Abdominal pain 08/01/2014 12/01/2014 Overview: - Abdominal pain is very non specific and somehow chronic - She is status post cholecystectomy - Abdominal pain could be from GERD or gastritis or PUD - Empiric PPI - GI work up can be done as an outpatient Diarrhea 01/19/2017 Hyperglycemia 11/08/2015 documented as of this encounter (statuses as of 09/09/2023) [facility] Narrative* Problem Noted Date Diagnosed Date Resolved Date Obesity, Class III, BMI >= 40 04/05/2018 08/18/2023 Hoarseness 02/05/2018 08/18/2023 Overview: Added automatically from request for surgery [id number] Essential hypertension 04/25/201607/14 Tobacco abuse 05/03/2015 01/19/2017 Skin tag 04/27/2015 01/19/2017 Obesity 12/19/2014 01/19/2017 Fever 08/03/2014 12/01/2014 Overview: - This is of unclear etiology - BCx done and negative so far - Could be reaction to vaccines - Does have some redness to vaccines site Chest pain 08/01/2014 05/31/2015 Overview: - r/o ACS - monitor on telemetry - repeat troponin - cardiology consult Shortness of breath 08/01/2014 08/18/19 Overview: - SOB has been progressive but worse with the onset of the chest pain - CXR showed to acute findings - CT PE study negative for PE - 2D echo showed normal EF - Probably chronic diastolic CHF PFT's showed restrictive deficit. Abdominal pain 08/01/2014 12/01/2014 Overview: - Abdominal pain is very non specific and somehow chronic - She is status post cholecystectomy - Abdominal pain could be from GERD or gastritis or PUD - Empiric PPI - GI work up can be done as an outpatient Diarrhea 01/19/2017 Hyperglycemia 11/08/2015 documented as of this encounter (statuses as of 09/09/2023) [facility]2018 History of Past illness Narrative* Problem Noted Date Diagnosed Date Resolved Date Obesity, Class III, BMI >= 40 04/05/2018 08/18/2023 Hoarseness 02/05/2018 08/18/2023 Overview: Added automatically from request for surgery [id number] Essential hypertension 04/25/201607/14 Tobacco abuse 05/03/2015 01/19/2017 Skin tag 04/27/2015 01/19/2017 Obesity 12/19/2014 01/19/2017 Fever 08/03/2014 12/01/2014 Overview: - This is of unclear etiology - BCx done and negative so far - Could be reaction to vaccines - Does have some redness to vaccines site Chest pain 08/01/2014 05/31/2015 Overview: - r/o ACS - monitor on telemetry - repeat troponin - cardiology consult Shortness of breath 08/01/2014 08/18/19 Overview: - SOB has been progressive but worse with the onset of the chest pain - CXR showed to acute findings - CT PE study negative for PE - 2D echo showed normal EF - Probably chronic diastolic CHF PFT's showed restrictive deficit. Abdominal pain 08/01/2014 12/01/2014 Overview: - Abdominal pain is very non specific and somehow chronic - She is status post cholecystectomy - Abdominal pain could be from GERD or gastritis or PUD - Empiric PPI - GI work up can be done as an outpatient Diarrhea 01/19/2017 Hyperglycemia 11/08/2015 documented as of this encounter (statuses as of 09/14/2023) [facility] History of Past illness Narrative* Problem Noted Date Diagnosed Date Resolved Date Obesity, Class III, BMI >= 40 04/05/2018 08/18/2023 Hoarseness 02/05/2018 08/18/2023 Overview: Added automatically from request for surgery [id number] Essential hypertension 04/25/201607/14 Tobacco abuse 05/03/2015 01/19/2017 Skin tag 04/27/2015 01/19/2017 Obesity 12/19/2014 01/19/2017 Fever 08/03/2014 12/01/2014 Overview: - This is of unclear etiology - BCx done and negative so far - Could be reaction to vaccines - Does have some redness to vaccines site Chest pain 08/01/2014 05/31/2015 Overview: - r/o ACS - monitor on telemetry - repeat troponin - cardiology consult Shortness of breath 08/01/2014 08/18/19 Overview: - SOB has been progressive but worse with the onset of the chest pain - CXR showed to acute findings - CT PE study negative for PE - 2D echo showed normal EF - Probably chronic diastolic CHF PFT's showed restrictive deficit. Abdominal pain 08/01/2014 12/01/2014 Overview: - Abdominal pain is very non specific and somehow chronic - She is status post cholecystectomy - Abdominal pain could be from GERD or gastritis or PUD - Empiric PPI - GI work up can be done as an outpatient Diarrhea 01/19/2017 Hyperglycemia 11/08/2015 documented as of this encounter (statuses as of 09/15/2023) [facility] History of Past illness Narrative* Problem Noted Date Diagnosed Date Resolved Date Obesity, Class III, BMI >= 40 04/05/2018 08/18/2023 Hoarseness 02/05/2018 08/18/2023 Overview: Added automatically from request for surgery [id number] Essential hypertension 04/25/201607/14 Tobacco abuse 05/03/2015 01/19/2017 Skin tag 04/27/2015 01/19/2017 Obesity 12/19/2014 01/19/2017 Fever 08/03/2014 12/01/2014 Overview: - This is of unclear etiology - BCx done and negative so far - Could be reaction to vaccines - Does have some redness to vaccines site Chest pain 08/01/2014 05/31/2015 Overview: - r/o ACS - monitor on telemetry - repeat troponin - cardiology consult Shortness of breath 08/01/2014 08/18/19 24 Overview: - SOB has been progressive but worse with the onset of the chest pain - CXR showed to acute findings - CT PE study negative for PE - 2D echo showed normal EF - Probably chronic diastolic CHF PFT's showed restrictive deficit. Abdominal pain 08/01/2014 12/01/2014 Overview: - Abdominal pain is very non specific and somehow chronic - She is status post cholecystectomy - Abdominal pain could be from GERD or gastritis or PUD - Empiric PPI - GI work up can be done as an outpatient Diarrhea 01/19/2017 Hyperglycemia 11/08/2015 documented as of this encounter (statuses as of 09/15/2023) [facility] History of Past illness Narrative* Problem Noted Date Diagnosed Date Resolved Date Obesity, Class III, BMI >= 40 04/05/2018 08/18/2023 Hoarseness 02/05/2018 08/18/2023 Overview: Added automatically from request for surgery [id number] Essential hypertension 04/25/201607/14 Tobacco abuse 05/03/2015 01/19/2017 Skin tag 04/27/2015 01/19/2017 Obesity 12/19/2014 01/19/2017 Fever 08/03/2014 12/01/2014 Overview: - This is of unclear etiology - BCx done and negative so far - Could be reaction to vaccines - Does have some redness to vaccines site Chest pain 08/01/2014 05/31/2015 Overview: - r/o ACS - monitor on telemetry - repeat troponin - cardiology consult Shortness of breath 08/01/2014 08/18/19 Overview: - SOB has been progressive but worse with the onset of the chest pain - CXR showed to acute findings - CT PE study negative for PE - 2D echo showed normal EF - Probably chronic diastolic CHF PFT's showed restrictive deficit. Abdominal pain 08/01/2014 12/01/2014 Overview: - Abdominal pain is very non specific and somehow chronic - She is status post cholecystectomy - Abdominal pain could be from GERD or gastritis or PUD - Empiric PPI - GI work up can be done as an outpatient Diarrhea 01/19/2017 Hyperglycemia 11/08/2015 documented as of this encounter (statuses as of 09/16/2023) [facility] History of Past illness Narrative* Problem Noted Date Diagnosed Date Resolved Date Obesity, Class III, BMI >= 40 04/05/2018 08/18/2023 Hoarseness 02/05/2018 08/18/2023 Overview: Added automatically from request for surgery [id number] Essential hypertension 04/25/201607/14 Tobacco abuse 05/03/2015 01/19/2017 Skin tag 04/27/2015 01/19/2017 Obesity 12/19/2014 01/19/2017 Fever 08/03/2014 12/01/2014 Overview: - This is of unclear etiology - BCx done and negative so far - Could be reaction to vaccines - Does have some redness to vaccines site Chest pain 08/01/2014 05/31/2015 Overview: - r/o ACS - monitor on telemetry - repeat troponin - cardiology consult Shortness of breath 08/01/2014 08/18/19 Overview: - SOB has been progressive but worse with the onset of the chest pain - CXR showed to acute findings - CT PE study negative for PE - 2D echo showed normal EF - Probably chronic diastolic CHF PFT's showed restrictive deficit. Abdominal pain 08/01/2014 12/01/2014 Overview: - Abdominal pain is very non specific and somehow chronic - She is status post cholecystectomy - Abdominal pain could be from GERD or gastritis or PUD - Empiric PPI - GI work up can be done as an outpatient Diarrhea 01/19/2017 Hyperglycemia 11/08/2015 documented as of this encounter (statuses as of 10/01/2023) [facility] History of Past illness Narrative* Problem Noted Date Resolved Date Essential hypertension 04/25/2016 9 Tobacco abuse 05/03/2015 01/19/2017 Skin tag 04/27/2015 01/19/2017 Obesity 12/19/2014 01/19/2017 Fever 08/03/2014 12/01/2014 Overview: - This is of unclear etiology - BCx done and negative so far - Could be reaction to vaccines - Does have some redness to vaccines site Chest pain 08/01/2014 05/31/2015 Overview: - r/o ACS - monitor on telemetry - repeat troponin - cardiology consult Abdominal pain 08/01/2014 12/01/2014 Overview: - Abdominal pain is very non specific and somehow chronic - She is status post cholecystectomy - Abdominal pain could be from GERD or gastritis or PUD - Empiric PPI - GI work up can be done as an outpatient Diarrhea 01/19/2017 Hyperglycemia 11/08/2015 documented as of this encounter (statuses as of 12/02/2021) [facility] History of Past illness Narrative* Problem Noted Date Resolved Date Essential hypertension 04/25/2016 9 Tobacco abuse 05/03/2015 01/19/2017 Skin tag 04/27/2015 01/19/2017 Obesity 12/19/2014 01/19/2017 Fever 08/03/2014 12/01/2014 Overview: - This is of unclear etiology - BCx done and negative so far - Could be reaction to vaccines - Does have some redness to vaccines site Chest pain 08/01/2014 05/31/2015 Overview: - r/o ACS - monitor on telemetry - repeat troponin - cardiology consult Abdominal pain 08/01/2014 12/01/2014 Overview: - Abdominal pain is very non specific and somehow chronic - She is status post cholecystectomy - Abdominal pain could be from GERD or gastritis or PUD - Empiric PPI - GI work up can be done as an outpatient Diarrhea 01/19/2017 Hyperglycemia 11/08/2015 documented as of this encounter (statuses as of 12/24/2021) [facility] History of Past illness Narrative* Problem Noted Date Resolved Date Essential hypertension 04/25/2016 9 Tobacco abuse 05/03/2015 01/19/2017 Skin tag 04/27/2015 01/19/2017 Obesity 12/19/2014 01/19/2017 Fever 08/03/2014 12/01/2014 Overview: - This is of unclear etiology - BCx done and negative so far - Could be reaction to vaccines - Does have some redness to vaccines site Chest pain 08/01/2014 05/31/2015 Overview: - r/o ACS - monitor on telemetry - repeat troponin - cardiology consult Abdominal pain 08/01/2014 12/01/2014 Overview: - Abdominal pain is very non specific and somehow chronic - She is status post cholecystectomy - Abdominal pain could be from GERD or gastritis or PUD - Empiric PPI - GI work up can be done as an outpatient Diarrhea 01/19/2017 Hyperglycemia 11/08/2015 documented as of this encounter (statuses as of 02/05/2022) [facility] History of Past illness Narrative* Problem Noted Date Resolved Date Essential hypertension 04/25/2016 9 Tobacco abuse 05/03/2015 01/19/2017 Skin tag 04/27/2015 01/19/2017 Obesity 12/19/2014 01/19/2017 Fever 08/03/2014 12/01/2014 Overview: - This is of unclear etiology - BCx done and negative so far - Could be reaction to vaccines - Does have some redness to vaccines site Chest pain 08/01/2014 05/31/2015 Overview: - r/o ACS - monitor on telemetry - repeat troponin - cardiology consult Abdominal pain 08/01/2014 12/01/2014 Overview: - Abdominal pain is very non specific and somehow chronic - She is status post cholecystectomy - Abdominal pain could be from GERD or gastritis or PUD - Empiric PPI - GI work up can be done as an outpatient Diarrhea 01/19/2017 Hyperglycemia 11/08/2015 documented as of this encounter (statuses as of 03/13/2022) [facility] History of Past illness Narrative* Problem Noted Date Resolved Date Essential hypertension 04/25/2016 9 Tobacco abuse 05/03/2015 01/19/2017 Skin tag 04/27/2015 01/19/2017 Obesity 12/19/2014 01/19/2017 Fever 08/03/2014 12/01/2014 Overview: - This is of unclear etiology - BCx done and negative so far - Could be reaction to vaccines - Does have some redness to vaccines site Chest pain 08/01/2014 05/31/2015 Overview: - r/o ACS - monitor on telemetry - repeat troponin - cardiology consult Abdominal pain 08/01/2014 12/01/2014 Overview: - Abdominal pain is very non specific and somehow chronic - She is status post cholecystectomy - Abdominal pain could be from GERD or gastritis or PUD - Empiric PPI - GI work up can be done as an outpatient Diarrhea 01/19/2017 Hyperglycemia 11/08/2015 documented as of this encounter (statuses as of 03/24/2022) [facility] History of Past illness Narrative* Problem Noted Date Resolved Date Essential hypertension 04/25/2016 9 Tobacco abuse 05/03/2015 01/19/2017 Skin tag 04/27/2015 01/19/2017 Obesity 12/19/2014 01/19/2017 Fever 08/03/2014 12/01/2014 Overview: - This is of unclear etiology - BCx done and negative so far - Could be reaction to vaccines - Does have some redness to vaccines site Chest pain 08/01/2014 05/31/2015 Overview: - r/o ACS - monitor on telemetry - repeat troponin - cardiology consult Abdominal pain 08/01/2014 12/01/2014 Overview: - Abdominal pain is very non specific and somehow chronic - She is status post cholecystectomy - Abdominal pain could be from GERD or gastritis or PUD - Empiric PPI - GI work up can be done as an outpatient Diarrhea 01/19/2017 Hyperglycemia 11/08/2015 documented as of this encounter (statuses as of 04/14/2022) [facility] History of Past illness Narrative* Problem Noted Date Resolved Date Essential hypertension 04/25/2016 9 Tobacco abuse 05/03/2015 01/19/2017 Skin tag 04/27/2015 01/19/2017 Obesity 12/19/2014 01/19/2017 Fever 08/03/2014 12/01/2014 Overview: - This is of unclear etiology - BCx done and negative so far - Could be reaction to vaccines - Does have some redness to vaccines site Chest pain 08/01/2014 05/31/2015 Overview: - r/o ACS - monitor on telemetry - repeat troponin - cardiology consult Abdominal pain 08/01/2014 12/01/2014 Overview: - Abdominal pain is very non specific and somehow chronic - She is status post cholecystectomy - Abdominal pain could be from GERD or gastritis or PUD - Empiric PPI - GI work up can be done as an outpatient Diarrhea 01/19/2017 Hyperglycemia 11/08/2015 documented as of this encounter (statuses as of 06/12/2022) [facility] History of Past illness Narrative* Problem Noted Date Resolved Date Essential hypertension 04/25/2016 9 Tobacco abuse 05/03/2015 01/19/2017 Skin tag 04/27/2015 01/19/2017 Obesity 12/19/2014 01/19/2017 Fever 08/03/2014 12/01/2014 Overview: - This is of unclear etiology - BCx done and negative so far - Could be reaction to vaccines - Does have some redness to vaccines site Chest pain 08/01/2014 05/31/2015 Overview: - r/o ACS - monitor on telemetry - repeat troponin - cardiology consult Abdominal pain 08/01/2014 12/01/2014 Overview: - Abdominal pain is very non specific and somehow chronic - She is status post cholecystectomy - Abdominal pain could be from GERD or gastritis or PUD - Empiric PPI - GI work up can be done as an outpatient Diarrhea 01/19/2017 Hyperglycemia 11/08/2015 documented as of this encounter (statuses as of 06/30/2022) [facility] History of Past illness Narrative* Problem Noted Date Resolved Date Essential hypertension 04/25/2016 9 Tobacco abuse 05/03/2015 01/19/2017 Skin tag 04/27/2015 01/19/2017 Obesity 12/19/2014 01/19/2017 Fever 08/03/2014 12/01/2014 Overview: - This is of unclear etiology - BCx done and negative so far - Could be reaction to vaccines - Does have some redness to vaccines site Chest pain 08/01/2014 05/31/2015 Overview: - r/o ACS - monitor on telemetry - repeat troponin - cardiology consult Abdominal pain 08/01/2014 12/01/2014 Overview: - Abdominal pain is very non specific and somehow chronic - She is status post cholecystectomy - Abdominal pain could be from GERD or gastritis or PUD - Empiric PPI - GI work up can be done as an outpatient Diarrhea 01/19/2017 Hyperglycemia 11/08/2015 documented as of this encounter (statuses as of 07/16/2022) [facility] History of Past illness Narrative* Problem Noted Date Resolved Date Essential hypertension 04/25/2016 9 Tobacco abuse 05/03/2015 01/19/2017 Skin tag 04/27/2015 01/19/2017 Obesity 12/19/2014 01/19/2017 Fever 08/03/2014 12/01/2014 Overview: - This is of unclear etiology - BCx done and negative so far - Could be reaction to vaccines - Does have some redness to vaccines site Chest pain 08/01/2014 05/31/2015 Overview: - r/o ACS - monitor on telemetry - repeat troponin - cardiology consult Abdominal pain 08/01/2014 12/01/2014 Overview: - Abdominal pain is very non specific and somehow chronic - She is status post cholecystectomy - Abdominal pain could be from GERD or gastritis or PUD - Empiric PPI - GI work up can be done as an outpatient Diarrhea 01/19/2017 Hyperglycemia 11/08/2015 documented as of this encounter (statuses as of 09/25/2022) [facility] History of Past illness Narrative* Problem Noted Date Resolved Date Essential hypertension 04/25/2016 9 Tobacco abuse 05/03/2015 01/19/2017 Skin tag 04/27/2015 01/19/2017 Obesity 12/19/2014 01/19/2017 Fever 08/03/2014 12/01/2014 Overview: - This is of unclear etiology - BCx done and negative so far - Could be reaction to vaccines - Does have some redness to vaccines site Chest pain 08/01/2014 05/31/2015 Overview: - r/o ACS - monitor on telemetry - repeat troponin - cardiology consult Abdominal pain 08/01/2014 12/01/2014 Overview: - Abdominal pain is very non specific and somehow chronic - She is status post cholecystectomy - Abdominal pain could be from GERD or gastritis or PUD - Empiric PPI - GI work up can be done as an outpatient Diarrhea 01/19/2017 Hyperglycemia 11/08/2015 documented as of this encounter (statuses as of 10/06/2022) [facility] History of Past illness Narrative* Problem Noted Date Resolved Date Essential hypertension 04/25/2016 9 Tobacco abuse 05/03/2015 01/19/2017 Skin tag 04/27/2015 01/19/2017 Obesity 12/19/2014 01/19/2017 Fever 08/03/2014 12/01/2014 Overview: - This is of unclear etiology - BCx done and negative so far - Could be reaction to vaccines - Does have some redness to vaccines site Chest pain 08/01/2014 05/31/2015 Overview: - r/o ACS - monitor on telemetry - repeat troponin - cardiology consult Abdominal pain 08/01/2014 12/01/2014 Overview: - Abdominal pain is very non specific and somehow chronic - She is status post cholecystectomy - Abdominal pain could be from GERD or gastritis or PUD - Empiric PPI - GI work up can be done as an outpatient Diarrhea 01/19/2017 Hyperglycemia 11/08/2015 documented as of this encounter (statuses as of 10/24/2022) [facility] History of Past illness Narrative* Problem Noted Date Resolved Date Essential hypertension 04/25/2016 9 Tobacco abuse 05/03/2015 01/19/2017 Skin tag 04/27/2015 01/19/2017 Obesity 12/19/2014 01/19/2017 Fever 08/03/2014 12/01/2014 Overview: - This is of unclear etiology - BCx done and negative so far - Could be reaction to vaccines - Does have some redness to vaccines site Chest pain 08/01/2014 05/31/2015 Overview: - r/o ACS - monitor on telemetry - repeat troponin - cardiology consult Abdominal pain 08/01/2014 12/01/2014 Overview: - Abdominal pain is very non specific and somehow chronic - She is status post cholecystectomy - Abdominal pain could be from GERD or gastritis or PUD - Empiric PPI - GI work up can be done as an outpatient Diarrhea 01/19/2017 Hyperglycemia 11/08/2015 documented as of this encounter (statuses as of 10/31/2022) [facility] History of Past illness Narrative* Problem Noted Date Resolved Date Essential hypertension 04/25/2016 9 Tobacco abuse 05/03/2015 01/19/2017 Skin tag 04/27/2015 01/19/2017 Obesity 12/19/2014 01/19/2017 Fever 08/03/2014 12/01/2014 Overview: - This is of unclear etiology - BCx done and negative so far - Could be reaction to vaccines - Does have some redness to vaccines site Chest pain 08/01/2014 05/31/2015 Overview: - r/o ACS - monitor on telemetry - repeat troponin - cardiology consult Abdominal pain 08/01/2014 12/01/2014 Overview: - Abdominal pain is very non specific and somehow chronic - She is status post cholecystectomy - Abdominal pain could be from GERD or gastritis or PUD - Empiric PPI - GI work up can be done as an outpatient Diarrhea 01/19/2017 Hyperglycemia 11/08/2015 documented as of this encounter (statuses as of 11/04/2022) [facility] Past illness Narrative* Problem Noted Date Resolved Date Essential hypertension 04/25/2016 9 Tobacco abuse 05/03/2015 01/19/2017 Skin tag 04/27/2015 01/19/2017 Obesity 12/19/2014 01/19/2017 Fever 08/03/2014 12/01/2014 Overview: - This is of unclear etiology - BCx done and negative so far - Could be reaction to vaccines - Does have some redness to vaccines site Chest pain 08/01/2014 05/31/2015 Overview: - r/o ACS - monitor on telemetry - repeat troponin - cardiology consult Abdominal pain 08/01/2014 12/01/2014 Overview: - Abdominal pain is very non specific and somehow chronic - She is status post cholecystectomy - Abdominal pain could be from GERD or gastritis or PUD - Empiric PPI - GI work up can be done as an outpatient Diarrhea 01/19/2017 Hyperglycemia 11/08/2015 documented as of this encounter (statuses as of 11/04/2022) [facility] of Past illness Narrative* Problem Noted Date Resolved Date Essential hypertension 04/25/2016 9 Tobacco abuse 05/03/2015 01/19/2017 Skin tag 04/27/2015 01/19/2017 Obesity 12/19/2014 01/19/2017 Fever 08/03/2014 12/01/2014 Overview: - This is of unclear etiology - BCx done and negative so far - Could be reaction to vaccines - Does have some redness to vaccines site Chest pain 08/01/2014 05/31/2015 Overview: - r/o ACS - monitor on telemetry - repeat troponin - cardiology consult Abdominal pain 08/01/2014 12/01/2014 Overview: - Abdominal pain is very non specific and somehow chronic - She is status post cholecystectomy - Abdominal pain could be from GERD or gastritis or PUD - Empiric PPI - GI work up can be done as an outpatient Diarrhea 01/19/2017 Hyperglycemia 11/08/2015 documented as of this encounter (statuses as of 11/05/2022) [facility] Past illness Narrative* Problem Noted Date Resolved Date Essential hypertension 04/25/2016 9 Tobacco abuse 05/03/2015 01/19/2017 Skin tag 04/27/2015 01/19/2017 Obesity 12/19/2014 01/19/2017 Fever 08/03/2014 12/01/2014 Overview: - This is of unclear etiology - BCx done and negative so far - Could be reaction to vaccines - Does have some redness to vaccines site Chest pain 08/01/2014 05/31/2015 Overview: - r/o ACS - monitor on telemetry - repeat troponin - cardiology consult Abdominal pain 08/01/2014 12/01/2014 Overview: - Abdominal pain is very non specific and somehow chronic - She is status post cholecystectomy - Abdominal pain could be from GERD or gastritis or PUD - Empiric PPI - GI work up can be done as an outpatient Diarrhea 01/19/2017 Hyperglycemia 11/08/2015 documented as of this encounter (statuses as of 12/25/2022) [facility] Past illness Narrative* Problem Noted Date Diagnosed Date Resolved Date Essential hypertension 04/25/201607/14 Tobacco abuse 05/03/2015 01/19/2017 Skin tag 04/27/2015 01/19/2017 Obesity 12/19/2014 01/19/2017 Fever 08/03/2014 12/01/2014 Overview: - This is of unclear etiology - BCx done and negative so far - Could be reaction to vaccines - Does have some redness to vaccines site Chest pain 08/01/2014 05/31/2015 Overview: - r/o ACS - monitor on telemetry - repeat troponin - cardiology consult Abdominal pain 08/01/2014 12/01/2014 Overview: - Abdominal pain is very non specific and somehow chronic - She is status post cholecystectomy - Abdominal pain could be from GERD or gastritis or PUD - Empiric PPI - GI work up can be done as an outpatient Diarrhea 01/19/2017 Hyperglycemia 11/08/2015 documented as of this encounter (statuses as of 01/19/2023) [facility] History of Past illness Narrative* Problem Noted Date Diagnosed Date Resolved Date Essential hypertension 04/25/201607/14 Tobacco abuse 05/03/2015 01/19/2017 Skin tag 04/27/2015 01/19/2017 Obesity 12/19/2014 01/19/2017 Fever 08/03/2014 12/01/2014 Overview: - This is of unclear etiology - BCx done and negative so far - Could be reaction to vaccines - Does have some redness to vaccines site Chest pain 08/01/2014 05/31/2015 Overview: - r/o ACS - monitor on telemetry - repeat troponin - cardiology consult Abdominal pain 08/01/2014 12/01/2014 Overview: - Abdominal pain is very non specific and somehow chronic - She is status post cholecystectomy - Abdominal pain could be from GERD or gastritis or PUD - Empiric PPI - GI work up can be done as an outpatient Diarrhea 01/19/2017 Hyperglycemia 11/08/2015 documented as of this encounter (statuses as of 04/24/2023) [facility] History of Past illness Narrative* Problem Noted Date Diagnosed Date Resolved Date Essential hypertension 04/25/201607/14 Tobacco abuse 05/03/2015 01/19/2017 Skin tag 04/27/2015 01/19/2017 Obesity 12/19/2014 01/19/2017 Fever 08/03/2014 12/01/2014 Overview: - This is of unclear etiology - BCx done and negative so far - Could be reaction to vaccines - Does have some redness to vaccines site Chest pain 08/01/2014 05/31/2015 Overview: - r/o ACS - monitor on telemetry - repeat troponin - cardiology consult Abdominal pain 08/01/2014 12/01/2014 Overview: - Abdominal pain is very non specific and somehow chronic - She is status post cholecystectomy - Abdominal pain could be from GERD or gastritis or PUD - Empiric PPI - GI work up can be done as an outpatient Diarrhea 01/19/2017 Hyperglycemia 11/08/2015 documented as of this encounter (statuses as of 05/01/2023) [facility] History of Past illness Narrative* Problem Noted Date Diagnosed Date Resolved Date Essential hypertension 04/25/201607/14 Tobacco abuse 05/03/2015 01/19/2017 Skin tag 04/27/2015 01/19/2017 Obesity 12/19/2014 01/19/2017 Fever 08/03/2014 12/01/2014 Overview: - This is of unclear etiology - BCx done and negative so far - Could be reaction to vaccines - Does have some redness to vaccines site Chest pain 08/01/2014 05/31/2015 Overview: - r/o ACS - monitor on telemetry - repeat troponin - cardiology consult Abdominal pain 08/01/2014 12/01/2014 Overview: - Abdominal pain is very non specific and somehow chronic - She is status post cholecystectomy - Abdominal pain could be from GERD or gastritis or PUD - Empiric PPI - GI work up can be done as an outpatient Diarrhea 01/19/2017 Hyperglycemia 11/08/2015 documented as of this encounter (statuses as of 05/14/2023) [facility] History of Past illness Narrative* Problem Noted Date Diagnosed Date Resolved Date Essential hypertension 04/25/201607/14 Tobacco abuse 05/03/2015 01/19/2017 Skin tag 04/27/2015 01/19/2017 Obesity 12/19/2014 01/19/2017 Fever 08/03/2014 12/01/2014 Overview: - This is of unclear etiology - BCx done and negative so far - Could be reaction to vaccines - Does have some redness to vaccines site Chest pain 08/01/2014 05/31/2015 Overview: - r/o ACS - monitor on telemetry - repeat troponin - cardiology consult Abdominal pain 08/01/2014 12/01/2014 Overview: - Abdominal pain is very non specific and somehow chronic - She is status post cholecystectomy - Abdominal pain could be from GERD or gastritis or PUD - Empiric PPI - GI work up can be done as an outpatient Diarrhea 01/19/2017 Hyperglycemia 11/08/2015 documented as of this encounter (statuses as of 05/17/2023) [facility] History of Past illness Narrative* Problem Noted Date Diagnosed Date Resolved Date Essential hypertension 04/25/201607/14 Tobacco abuse 05/03/2015 01/19/2017 Skin tag 04/27/2015 01/19/2017 Obesity 12/19/2014 01/19/2017 Fever 08/03/2014 12/01/2014 Overview: - This is of unclear etiology - BCx done and negative so far - Could be reaction to vaccines - Does have some redness to vaccines site Chest pain 08/01/2014 05/31/2015 Overview: - r/o ACS - monitor on telemetry - repeat troponin - cardiology consult Abdominal pain 08/01/2014 12/01/2014 Overview: - Abdominal pain is very non specific and somehow chronic - She is status post cholecystectomy - Abdominal pain could be from GERD or gastritis or PUD - Empiric PPI - GI work up can be done as an outpatient Diarrhea 01/19/2017 Hyperglycemia 11/08/2015 documented as of this encounter (statuses as of 06/16/2023) [facility] Evaluation note* Diagnosis Onset Date Resolution Status Chest pain acute Erythrocytosis acute S/P CABG x 2 October 17, 2015 chronic Tobacco use disorder chronic [facility] Work Phone: Discharge summary Author Sara Marte [facility] May 07, 2023 3:58pm Note Date/Time May 07, 2023 3 :55pm [facility] Medical Records Department [address] [place] [address] Instructions for Home/Discharge Instructions 05/07/23 1555 MR#: [id number] Acct: [id number] Name: CAROL NOLAN Rep #:[id number] 2 : 1960 62 From: Sara Marte MD PCP: Dr. Mac Olvera MD Status:ADM I NO Discharge Instructions Diet Discharge Diet: - (DASH diet) Activity Discharge Activity: Return to Normal Activity Follow Up Care Test Results: Test results from this visit will be discussed in further detail at your follow- up appointment, if applicable. Discharge Plan Admission Admit Date/Time: 05/06/23 17:05 Primary Reason for Your Visit: Chest pain Attending Provider: Sara Marte Primary Care Provider: Mac Olvera Consulting Providers: Harmony Argueta Instructions Patient Instructions: ED Chest Pain, Noncardiac Additional Instructions / Restrictions: DISCHARGE INSTRUCTIONS PLEASE READ *Please take this with you to your next doctors appointment* -It is strongly advised to have an outpatient sleep study coordinated, coming through her primary care physician's office -Please follow-up with cardiology upon discharge. Please call their office to schedule hospital follow-up appointment upon discharge. You indicated that you may want to switch cardiologists and follow with our office, contact informationbelow if he would choose to do so. -Your stress test was within normal limits, you will be discharged on a medication for reflux as we discussed, pantoprazole. -Continue other home meds -Please call your primary care provider's office upon discharge to schedule a hospital follow up within 1 week. -For any concerning signs or symptoms please call 911 or proceed to the nearest emergency department Discharge Orders/Prescriptions Prescriptions: New pantoprazole 40 mg Tablet,Delayed Release (Dr/Ec) 40 mg PO DAILY 30 Days Qty: 30 0RF Continued metoprolol succinate 50 mg tablet extended release 24 hr 50 mg PO DAILY ipratropium-albuterol 0.5 mg-3 mg(2.5 mg base)/3 mL solution for nebulization 3 ml INHALATION 4X/DAY PRN (Reason: SHORTNESS OF BREATH/WHEEZING ) Patient Comments: NOT TAKING OFTEN BECAUSE ITS HARD TO CLEAN aspirin 81 mg tablet,delayed release (DR/EC) 162 mg PO DAILY nitroglycerin 0.4 MG tablet 0.4 mg sublingual Q5M PRN (Reason: CHEST PAIN ) gabapentin 300 MG capsule 300 mg PO QHS albuterol sulfate 1 INHALER inhaler 2 puff inhalation Q4H PRN (Reason: SHORTNESS OF BREATH/WHEEZING) Patient Comments: NOT TAKING OFTEN THEY SHOULD lisinopril 20 MG tablet 20 mg PO DAILY metformin 500 MG tablet extended release 24 hr 1,500 mg PO DAILY hydralazine 10 MG tablet 10 mg PO BID rosuvastatin 20 mg tablet 20 mg PO DAILY clopidogrel 75 mg tablet 75 mg PO DAILY Qty: 90 3RF Referrals / Follow Up: Franc العراقي MD [Med Staff - Active Staff] - Mac Olvera MD [Primary Care Provider] - Within 1 Week Disposition Disposition (needs filled in before D/C Order can be placed): Home, Self Care 05/07/23 1558<Electronically signed by Sara Marte MD>Sara Marte MD CC: Dr. Harmony Argueta DO; Dr. Mac Olvera MD ~ Signed [facility] Work Phone: Discharge summary Author Sara [facility] May 07, 2023 4:00pm Note Date/Time May 07, 2023 4 :00pm [facility] Medical Records Department [address] [place] [id number] Discharge Summary 05/07/238 MR#: [id number] Acct: [id number] Name: CAROL NOLAN Rep #:[id number] : 1960 62 From: Sara Marte MD PCP: Dr. Mac Olvera MD Status:ADM I NO Location: [place] [address] Providers Date of Admission: 05/06/23 Date of Discharge: 05/07/23 Primary Care Physician: Dr. Mac Olvera MD Reason For Visit: CP Diagnosis Discharge Diagnosis (1) Chest pain: Status: Acute Code(s): R07.9 - Chest pain, unspecified (2) Erythrocytosis: Status: Acute Code(s): D75.1 - Secondary polycythemia Plan #Atypical chest pain- normal workup #Hx cad w/ hx cabg and PCI #Erythrocytosis #DMII Medications at Discharge Home Medications nitroglycerin 0.4 mg sublingual tablet 0.4 mg sublingual Q5M PRN CHEST PAIN 05/15/15 gabapentin 300 mg capsule 300 mg PO QHS NEUROPATHY 01/17/16 albuterol sulfate 90 mcg/actuation aerosol inhaler 2 puff inhalation Q4H PRN SHORTNESS OF BREATH/WHEEZING 06/17/17 ipratropium 0.5 mg-albuterol 3 mg (2.5 mg base)/3 mL nebulization soln 3 ml inhalation 4X/DAY PRN SHORTNESS OF BREATH/WHEEZING 02/28/19 metoprolol succinate 50 mg tablet,extended release 24 hr 50 mg PO DAILY BLOOD PRESSURE 02/28/19 aspirin 81 mg tablet,delayed release 162 mg PO DAILY HEART HEALTH 03/01/19 clopidogrel 75 mg tablet 75 mg PO DAILY BLOOD THINNER #90 tabs 05/19/19 lisinopril 20 mg tablet 20 mg PO DAILY BLOOD PRESSURE 10/03/19 metformin 500 mg tablet,extended release 24 hr 1,500 mg PO DAILY DIABETES 10/03/19 hydralazine 10 mg tablet 10 mg PO BID BLOOD PRESSURE 05/06/23 rosuvastatin 20 mg tablet 20 mg PO DAILY CHOLESTEROL 05/06/23 pantoprazole 40 mg tablet,delayed release 40 mg PO DAILY 30 days #30 tabs 05/07/23 Hospital Course Summary of Care Provided Minutes Spent on Discharge: 31 Hospital Course: 62-year-old female history of tobacco use, hypertension, coronary artery diseasewith stenting and CABG, type 2 diabetes mellitus who presented to [facility] 05/06/2023 for worsening chest pain. Troponins negative and EKG with no new ischemic changes however given her high heart score she was admitted for stress test. Stress test was within normal limits. Discussed with patient after stress test results and she endorsed that she has the chest pressure constantly and has nothing to do with exertion or rest or movement but sometimes will be worse when she lays down at night and has no other associated symptoms whatsoever. Given negative work-up do not think she needs hospitalizedfor further acute cardiac work-up or intervention, may have component of GERD given the worsening at bedtime when she lays down, discussed starting PPI and patient agreeable. Discussed following up with her [employer] consultant and PCP when she leaves and patient verbalized understanding. Discussed need for sleep studyand patient reports she would not use her CPAP even if she qualified for 1, discussed that she should discuss this further with her primary physician as they are often other options that are more tolerable and hurts to masks etc. Discharge instructions follow: -It is strongly advised to have an outpatient sleep study coordinated, coming through her primary care physician's office -Please follow-up with cardiology upon discharge. Please call their office to schedule hospital follow-up appointment upon discharge. You indicated that you may want to switch cardiologists and follow with our office, contact informationbelow if he would choose to do so. -Your stress test was within normal limits, you will be discharged on a medication for reflux as we discussed, pantoprazole. -Continue other home meds -Please call your primary care provider's office upon discharge to schedule a hospital follow up within 1 week. -For any concerning signs or symptoms please call 911 or proceed to the nearest emergency department Physical Exam Narrative General: Alert, oriented, no apparent distress HEENT: Atraumatic, normocephalic Eyes: Anicteric, normal conjunctiva, extraocular movements grossly intact Neck: Supple Respiratory: Clear to auscultation bilaterally, normal respiratory effort Cardiovascular: Regular rate and rhythm GI: Soft, nontender, nondistended Extremities: No edema Musculoskeletal: Moving all extremities Neuro: No overt focal neurological deficits Skin: No rashes appreciated Psych: Cooperative Weight / BMI Weight Weight: 132 kg Body Mass Index (BMI) 47.0 ABG / Lab / Microbiology Data 05/07/23 06:51 05/07/23 06:51 Laboratory: Laboratory Results - last 24 hr 05/06/23 16:00: Troponin I High Sens 6 05/06/23 19:15: Troponin I High Sens 6 05/06/23 21:50: POC Glucose 254 H 05/07/23 06:35: POC Glucose 167 H 05/07/23 06:51: WBC 7.0, RBC 5.16, Hgb 16.0 H, Hct 48.7 H, MCV 94.4, MCH 31.0, MCHC 32.9, RDW Std Deviation 45.9 H, RDW Coeff of Aubrey 13.2, Plt Count 180, MPV 10.2, Immature Gran % (Auto) 0.100, Neut % (Auto) 54.1, Lymph % (Auto) 33.7, Barton % (Auto) 9.3, Eos % (Auto) 2.2, Baso % (Auto) 0.6, Absolute Neuts (auto) 3.8, Absolute Lymphs (auto) 2.35, Nucleated RBC % 0, Sodium 137, Potassium 3.9, Chloride 106, Carbon Dioxide 26.0, Anion Gap 5, BUN 10, Creatinine 0.64, Estim Creat Clear Calc 83.13, Est GFR (MDRD) Af Amer 120, Est GFR (MDRD) Non-Af 100, BUN/Creatinine Ratio 15.7, Glucose 157 H, Calcium 8.7, Phosphorus 3.5, Magnesium2.3, Triglycerides 163, Cholesterol 153, LDL Cholesterol 76, VLDL Cholesterol 33, HDL Cholesterol 44 05/07/23 11:20: POC Glucose 182 H Radiography Diagnostic Testing: Radiology Impression Echocardiogram 05/07/23 08:11 Interpretation Summary The left ventricular ejection fraction is 65 %. Diastolic function is indeterminate. The left atrium is moderately enlarged. The study was technically difficult. Ordering Physician: Sara Marte Referring Physician: MAC OLVERA Performed By: Lesly Grullon RCS D/C Instructions Discharge Diet: - (DASH diet) Meaningful Use Info Meaningful Use Diagnoses (Choose all that apply): None applicable Discharge Plan Admission Admit Date/Time: 05/06/23 17:05 Primary Reason for Your Visit: Chest pain Attending Provider: Sara Marte Primary Care Provider: Mac Olvera Consulting Providers: Harmony Argueta Instructions Patient Instructions: ED Chest Pain, Noncardiac Additional Instructions / Restrictions: DISCHARGE INSTRUCTIONS PLEASE READ *Please take this with you to your next doctors appointment* -It is strongly advised to have an outpatient sleep study coordinated, coming through her primary care physician's office -Please follow-up with cardiology upon discharge. Please call their office to schedule hospital follow-up appointment upon discharge. You indicated that you may want to switch cardiologists and follow with our office, contact informationbelow if he would choose to do so. -Your stress test was within normal limits, you will be discharged on a medication for reflux as we discussed, pantoprazole. -Continue other home meds -Please call your primary care provider's office upon discharge to schedule a hospital follow up within 1 week. -For any concerning signs or symptoms please call 911 or proceed to the nearest emergency department Discharge Orders/Prescriptions Prescriptions: New pantoprazole 40 mg Tablet,Delayed Release (Dr/Ec) 40 mg PO DAILY 30 Days Qty: 30 0RF Continued metoprolol succinate 50 mg tablet extended release 24 hr 50 mg PO DAILY ipratropium-albuterol 0.5 mg-3 mg(2.5 mg base)/3 mL solution for nebulization 3 ml INHALATION 4X/DAY PRN (Reason: SHORTNESS OF BREATH/WHEEZING ) Patient Comments: NOT TAKING OFTEN BECAUSE ITS HARD TO CLEAN aspirin 81 mg tablet,delayed release (DR/EC) 162 mg PO DAILY nitroglycerin 0.4 MG tablet 0.4 mg sublingual Q5M PRN (Reason: CHEST PAIN ) gabapentin 300 MG capsule 300 mg PO QHS albuterol sulfate 1 INHALER inhaler 2 puff inhalation Q4H PRN (Reason: SHORTNESS OF BREATH/WHEEZING) Patient Comments: NOT TAKING OFTEN THEY SHOULD lisinopril 20 MG tablet 20 mg PO DAILY metformin 500 MG tablet extended release 24 hr 1,500 mg PO DAILY hydralazine 10 MG tablet 10 mg PO BID rosuvastatin 20 mg tablet 20 mg PO DAILY clopidogrel 75 mg tablet 75 mg PO DAILY Qty: 90 3RF Referrals / Follow Up: Franc العراقي MD [Med Staff - Active Staff] - Mac Olvera MD [Primary Care Provider] - Within 1 Week Disposition Disposition (needs filled in before D/C Order can be placed): Home, Self Care Charges/Coding Visit Charges Inpatient E&M: 74493 Disch Hosp >30min 05/07/23 1600 <Electronically signed by Sara Marte MD> Cosigner Signature (if applicable): CC: Dr. Sara Marte MD; Dr. Mac Olvera MD~ Signed [facility] Work Phone: Evaluation note* Diagnosis Coronary artery disease involving upper [place] coronary artery of upper [place] heart without angina pectoris- Primary Primary hypertension Unspecified essential hypertension Other hyperlipidemia Palpitations Tobacco use disorder Shortness of breath ASHD (arteriosclerotic heart disease) Coronary atherosclerosis of unspecified type of vessel, upper [place] or graft Carotid artery stenosis, asymptomatic, bilateral NSVT (nonsustained ventricular tachycardia) (HCC) Paroxysmal ventricular tachycardia [facility] Diagnosis Type 2 diabetes mellitus without complication, without long-term current use of insulin (HCC) documented in this encounter [facility] note* Diagnosis NSVT (nonsustained ventricular tachycardia) (HCC)- Primary Paroxysmal ventricular tachycardia Essential hypertension Unspecified essential hypertension Hyperlipidemia, mixed Mixed hyperlipidemia Shortness of breath Coronary artery disease involving upper [place] coronary artery of upper [place] heart without angina pectoris Primary hypertension Unspecified essential hypertension Other hyperlipidemia Tobacco use disorder Type 2 diabetes mellitus without complication, without long-term current use of insulin (HCC) Carotid artery stenosis, asymptomatic, bilateral Bilateral carotid artery stenosis Occlusion and stenosis of carotid artery without mention of cerebral infarction Screening breast examination Breast screening, unspecified Rectal bleeding Hemorrhage of rectum and anus Supraclavicular fossa fullness Swelling, mass, or lump in chest [facility]* Diagnosis Type 2 diabetes mellitus without complication, without long-term current use of insulin (HCC)- Primary [facility] Diagnosis Coronary artery disease involving upper [place] coronary artery of upper [place] heart without angina pectoris- Primary Primary hypertension Unspecified essential hypertension NSVT (nonsustained ventricular tachycardia) Paroxysmal ventricular tachycardia Other hyperlipidemia Palpitations [facility]* Diagnosis Type 2 diabetes mellitus without complication, without long-term current use of insulin (HCC) [facility]* Diagnosis Encounter for screening for malignant neoplasm of colon- Primary Special screening for malignant neoplasms, colon History of colonic polyps Personal history of colonic polyps Morbid obesity (HCC) Morbid obesity Abdominal wall bulge Abdominal or pelvic swelling, mass or lump, unspecified site Bilateral upper abdominal discomfort Abdominal pain, right upper quadrant Gastroesophageal reflux disease, unspecified whether esophagitis present [facility]* Diagnosis Hyperlipidemia, mixed Mixed hyperlipidemia Coronary artery disease involving upper [place] coronary artery of upper [place] heart without angina pectoris ASHD (arteriosclerotic heart disease) Coronary atherosclerosis of unspecified type of vessel, upper [place] or graft [facility] Diagnosis Primary hypertension- Primary Unspecified essential hypertension Screening for HIV (human immunodeficiency virus) Special screening examination for other specified viral diseases Chronic pain of left knee Pain in joint, lower leg Coronary artery disease involving upper [place] coronary artery of upper [place] heart without angina pectoris S/P CABG x 2 Postsurgical aortocoronary bypass status Other hyperlipidemia Type 2 diabetes mellitus without complication, without long-term current use of insulin (HCC) Urinary frequency [facility]* Diagnosis Osteoarthritis of knee, unspecified laterality, unspecified osteoarthritis type- Primary Type 2 diabetes mellitus without complication, without long-term current use of insulin (HCC) [facility] Diagnosis Type 2 diabetes mellitus without complication, without long-term current use of insulin (HCC) Essential hypertension Unspecified essential hypertension [facility] Diagnosis Encounter for screening mammogram for breast cancer [facility] Diagnosis Hyperlipidemia, mixed Mixed hyperlipidemia Type 2 diabetes mellitus without complication, without long-term current use of insulin (HCC) [facility] Diagnosis Primary hypertension- Primary Unspecified essential hypertension [facility] Diagnosis History of colon polyps- Primary Personal history of colonic polyps History of colonic polyps Personal history of colonic polyps Abdominal discomfort Abdominal pain, unspecified site Gastroesophageal reflux disease with esophagitis without hemorrhage [facility]* Diagnosis Chest pain, unspecified type- Primary Type 2 diabetes mellitus without complication, without long-term current use of insulin (HCC) NSVT (nonsustained ventricular tachycardia) (HCC) Paroxysmal ventricular tachycardia Other hyperlipidemia Primary hypertension Unspecified essential hypertension Coronary artery disease involving upper [place] coronary artery of upper [place] heart without angina pectoris Morbid obesity (HCC) Morbid obesity Carotid artery stenosis, asymptomatic, bilateral Dysuria ASHD (arteriosclerotic heart disease) Coronary atherosclerosis of unspecified type of vessel, upper [place] or graft Tobacco use Tobacco use disorder PASCUAL (obstructive sleep apnea) Obstructive sleep apnea (adult) (pediatric) [facility] Diagnosis Elevated liver enzymes- Primary Other nonspecific abnormal serum enzyme levels Polycythemia Polycythemia vera [facility] Diagnosis Essential hypertension Unspecified essential hypertension [facility] Diagnosis Elevated liver enzymes Other nonspecific abnormal serum enzyme levels Polycythemia Polycythemia vera [facility] Diagnosis Essential hypertension Unspecified essential hypertension [facility] Diagnosis Encounter for screening for lung cancer- Primary Tobacco use current [facility]* Diagnosis Type 2 diabetes mellitus without complication, without long-term current use of insulin (HCC) [facility]* Diagnosis Dysuria- Primary [facility] Diagnosis Tobacco use current [facility]* Diagnosis Type 2 diabetes mellitus without complication, without long-term current use of insulin (HCC) documented in [facility] Hyperlipidemia, mixed Mixed hyperlipidemia [facility] Primary hypertension- Primary Unspecified essential hypertension Type 2 diabetes mellitus without complication, without long-term current use of insulin (HCC) Coronary artery disease involving upper [place] coronary artery of upper [place] heart without angina pectoris S/P CABG x 2 Postsurgical aortocoronary bypass status Gastroesophageal reflux disease with esophagitis without hemorrhage Carotid artery stenosis, asymptomatic, bilateral DDD (degenerative disc disease), lumbar Degeneration of lumbar or lumbosacral intervertebral disc Acute pain of right shoulder Chronic right shoulder pain Pain in joint, shoulder region Dysuria Screening breast examination Breast screening, unspecified [facility] Diagnosis Type 2 diabetes mellitus without complication, without long-term current use of insulin (HCC)- Primary [facility] Diagnosis Dysuria- Primary Coronary artery disease involving upper [place] coronary artery of upper [place] heart without angina pectoris Type 2 diabetes mellitus without complication, without long-term current use of insulin (HCC) [facility]* Diagnosis Acute pain of right shoulder- Primary [facility] Diagnosis Coronary artery disease involving upper [place] coronary artery of upper [place] heart without angina pectoris- Primary NSVT (nonsustained ventricular tachycardia) (HCC) Paroxysmal ventricular tachycardia Primary hypertension Unspecified essential hypertension Other hyperlipidemia Carotid artery stenosis, asymptomatic, bilateral Obesity, Class III, BMI >= 40 Morbid obesity Pre-operative cardiovascular examination Hyperlipidemia, mixed Mixed hyperlipidemia [facility]* Diagnosis DDD (degenerative disc disease), lumbar Degeneration of lumbar or lumbosacral intervertebral disc Acute pain of right shoulder [facility] Diagnosis Enlarged aorta (HCC) Other specified disorders of arteries and arterioles [facility] Diagnosis Enlarged aorta (HCC)- Primary Other specified disorders of arteries and arterioles Enlarged aorta (HCC) Other specified disorders of arteries and arterioles [facility]* Diagnosis Type 2 diabetes mellitus without complication, without long-term current use of insulin (HCC)- Primary Coronary artery disease involving upper [place] coronary artery of upper [place] heart without angina pectoris [facility]* Diagnosis Primary hypertension Unspecified essential hypertension [facility] Diagnosis Essential hypertension Unspecified essential hypertension [facility]* Diagnosis Chronic pain of left knee Pain in joint, lower leg [facility]* Diagnosis Pulmonary emphysema, unspecified emphysema type (HCC) [facility]* Diagnosis Lung nodules- Primary Other nonspecific abnormal finding of lung field Tobacco use current Encounter for screening for lung cancer documented in this encounter [facility] note* Diagnosis Lung nodules Other nonspecific abnormal finding of lung field [facility] Diagnosis Other chronic pain- Primary Encounter for immunization Need for other specified prophylactic vaccination against single bacterial disease Primary hypertension Unspecified essential hypertension S/P CABG x 2 Postsurgical aortocoronary bypass status Tobacco use disorder Coronary artery disease involving upper [place] coronary artery of upper [place] heart without angina pectoris Enlarged aorta (HCC) Other specified disorders of arteries and arterioles Degeneration of intervertebral disc of lumbar region with discogenic back pain Essential hypertension Unspecified essential hypertension Type 2 diabetes mellitus without complication, without long-term current use of insulin (HCC) Screening for osteoporosis Special screening for osteoporosis Asymptomatic menopause [facility]* Diagnosis Asthma-COPD overlap syndrome (HCC)- Primary [facility]* Diagnosis Type 2 diabetes mellitus without complication, without long-term current use of insulin (HCC) documented in this encounter [facility] note* Diagnosis Type 2 diabetes mellitus without complication, without long-term current use of insulin (HCC) [facility]* Diagnosis S/P CABG x 2 Postsurgical aortocoronary bypass status [facility]* Diagnosis Type 2 diabetes mellitus without complication, without long-term current use of insulin (HCC) documented in this encounter [facility] note* Diagnosis Coronary artery disease involving upper [place] coronary artery of upper [place] heart without angina pectoris- Primary NSVT (nonsustained ventricular tachycardia) (HCC) Paroxysmal ventricular tachycardia Primary hypertension Unspecified essential hypertension Other hyperlipidemia Palpitations Carotid artery stenosis, asymptomatic, bilateral Morbid obesity (HCC) Morbid obesity documented in this encounter [facility] note* Diagnosis Other chronic pain [facility]* Diagnosis S/P CABG x 2- Primary Postsurgical aortocoronary bypass status Type 2 diabetes mellitus without complication, without long-term current use of insulin (HCC) Tobacco use disorder Coronary artery disease involving upper [place] coronary artery of upper [place] heart without angina pectoris Essential hypertension Unspecified essential hypertension Enlarged aorta Other specified disorders of arteries and arterioles Dental caries Unspecified dental caries Degeneration of intervertebral disc of lumbar region with discogenic back pain Neoplasm of skin Neoplasm of unspecified nature of bone, soft tissue, and skin [facility]* Diagnosis Encounter for screening mammogram for breast cancer [facility]* Diagnosis Sebaceous cyst- Primary documented in this encounter [facility] note* Diagnosis Sebaceous cyst- Primary Neoplasm of skin of chest [facility]* Diagnosis Asthma-COPD overlap syndrome (HCC) documented in this encounter [facility] noteNo assessment information [facility]WPaul[facility] Work Phone: Evaluation note* Diagnosis Vitamin B12 deficiency- Primary Other B-complex deficiencies documented in this encounter [facility] note* Diagnosis Onset Date Resolution Status Admit Date Intractable nausea acute December 122024 6:39pm [facility] Work Phone: evaluation note* Diagnosis Pyelonephritis- Primary Pyelonephritis, unspecified [facility] Author Harmony Argueta [facility] May 06, 2023 6:10pm Note Date/Time May 06, 2023 5 :05pm [facility] Medical Records Department [address] [place] [id number] H&P Exam - Hospitalist 05/06/23 1703 MR#: [id number] Acct: [id number] Name: CAROL NOLAN Rep #:[id number] 3 : 1960 62 From: Harmony Argueta DO PCP: Dr. Mac Olvera MD Status:ADM I NO Location: [place] [id number]- [id number] HPI - General General Date of Admission: 05/06/23 Date of Service: 05/06/23 Chief Complaint: Chest pain HPI Narrative CAROL NOLAN, is a 62 F who presented urgency department at [facility] with chest pain that has been ongoing on and off for the last 2 weeks. She states she notices that it is worse with exertion and movement of any kind. She does not report that it significantly improves with rest however. She states she has chronic shortness of breath and it may or may not worsen and someintermittent nausea as well. She still smokes. She reported that she had a cardiology appointment soon however had to be rescheduled. She has not called her [employer] consultant with regards to her symptoms that she has been experiencing. She saw her primary care physician today who sent her to the emergency department. She states she currently is having some pain however it is nonradiating. She indicates the pain never radiates and seems to be in the central chest area. She states she has had symptoms on and off since her CABG and has required a stent placement since her CABG in the RCA. EF previously hasbeen normal at 65%. She still smokes quite heavily. Heart score was 5. Vital signs on presentation: Temperature 97.5, heart rate 76, initial blood pressure was 196/88 with a repeat at 151/88, respiratory was 19 and oxygen saturations were 96% on room air. Her CBC shows chronic erythrocytosis. But isotherwise unremarkable. I suspect this is related to her chronic tobacco abuse. Her D-dimer was normal when corrected for age. Her chemistry panel was unremarkable. Serum glucose was 151. Troponin initially was 8 with a repeat of6. EKG shows normal sinus rhythm with normal intervals and no ST-T wave changesconcerning for acute ischemia. Given her heart score and history it was felt to be prudent to admit her for rule out stress test. [facility] Medical History Atherosclerotic heart disease of upper [place] coronary artery with unstable angina pectoris Chest pain Diabetes mellitus, type II Dyspnea on minimal exertion Encounter for screening for malignant neoplasm of lung in current smoker with 30pack year history or greater Hyperlipidemia Hypertension Tobacco use disorder Tobacco use disorder, continuous Home Medications nitroglycerin 0.4 mg sublingual tablet 0.4 mg sublingual Q5M PRN CHEST PAIN 05/15/15 [History Last Taken 06/16/17 06:00] gabapentin 300 mg capsule 300 mg PO QHS NEUROPATHY 01/17/16 [History Last Taken 05/05/23] albuterol sulfate 90 mcg/actuation aerosol inhaler 2 puff inhalation Q4H PRN SHORTNESS OF BREATH/WHEEZING 06/17/17 [History Last Taken Unknown] ipratropium 0.5 mg-albuterol 3 mg (2.5 mg base)/3 mL nebulization soln 3 ml inhalation 4X/DAY PRN SHORTNESS OF BREATH/WHEEZING 02/28/19 [History Last Taken Unknown] metoprolol succinate 50 mg tablet,extended release 24 hr 50 mg PO DAILY BLOOD PRESSURE 02/28/19 [History Last Taken 05/05/23] aspirin 81 mg tablet,delayed release 162 mg PO DAILY HEART HEALTH 03/01/19 [History Last Taken 05/05/23] clopidogrel 75 mg tablet 75 mg PO DAILY BLOOD THINNER #90 tabs 05/19/19 [Rx Last Taken 05/05/23] lisinopril 20 mg tablet 20 mg PO DAILY BLOOD PRESSURE 10/03/19 [History Last Taken 05/05/23] metformin 500 mg tablet,extended release 24 hr 1,500 mg PO DAILY DIABETES 10/03/19 [History Last Taken 05/05/23] hydralazine 10 mg tablet 10 mg PO BID BLOOD PRESSURE 05/06/23 [History Last Taken 05/05/23] rosuvastatin 20 mg tablet 20 mg PO DAILY CHOLESTEROL 05/06/23 [History Last Taken 05/05/23] Allergy/AdvReac Type Severity Reaction Status Date / Time nickel Allergy Rash Verified 05/06/23 12:05 Penicillins [PCN] Allergy Hives Verified 05/06/23 12:05 nicotine [From Nicoderm CQ] AdvReac Severe TERRIBLE Verified 05/06/23 12:05 NIGHTMARES Family History Mother Kidney disease Congestive heart failure Renal failure Father CAD (coronary artery disease) Daughter Hypertension Surgical History History of arthroscopic knee surgery History of History of cholecystectomy History of colonoscopy History of esophagogastroduodenoscopy (EGD) History of left heart catheterization (10/05/19) History of rotator cuff surgery History of selective injection of anesthetic agent around lumbar nerve root History of tonsillectomy and adenoidectomy History of total right knee replacement History of tubal ligation S/P CABG x 2 (10/17/15) Stented coronary artery (03/03/19) Social History (Updated 05/06/23 @ 18:[address] Harmony Argueta, DO) Smoking Status: Current every day smoker alcohol intake: never substance use type: does not use Vital Signs Vital Signs Vital Signs: 05/06/23 12:00 05/06/23 12:12 05/06/23 12:18 Temperature 97.5 F L Temperature Source Temporal Pulse Rate 76 Respiratory Rate 19 H Respiratory Effort Short of Breath Blood Pressure 196/88 H Blood Pressure Mean 124 Pulse Ox 96 97 Oxygen Delivery Method Room Air Room Air 05/06/23 13:16 05/06/23 14:00 05/06/23 15:43 Temperature Temperature Source Pulse Rate 66 72 Respiratory Rate 17 18 18 Respiratory Effort Blood Pressure 164/91 H 141/65 H Blood Pressure Mean 115 90 Pulse Ox 95 98 98 Oxygen Delivery Method Room Air Room Air 05/06/23 16:49 Temperature Temperature Source Pulse Rate 66 Respiratory Rate 20 H Respiratory Effort Blood Pressure 151/88 H Blood Pressure Mean 109 Pulse Ox 99 Oxygen Delivery Method Room Air Weight Weight: 133.4 kg Body Mass Index (BMI) 47.5 Physical Exam Const alert, oriented x3, no apparent distress and well nourished; Negative for average body habitus or healthy appearing Constitutional Narrative: Morbidly obese, middle-aged, white female, appears older than stated age, sitting up in bed watching television, appears comfortable but is still complaining of chest pain centrally General Appearance: cooperative HEENT normocephalic, head/scalp atraumatic, hearing grossly normal bilaterally and moist oral mucous membranes HEENT Narrative: Mallampati 3-4, no thrush Resp normal respiratory effort, no retractions, no use of accessory muscles and No clear to auscultation bilaterally Resp Narrative: Diffusely diminished with few scattered end expiratory wheeze Auscultation: wheezes; Negative for rales or rhonchi Cardio regular rate, regular rhythm, S1 normal heart sound, S2 normal heart sound, no murmurs, no rub, no gallops and no clicks Cardio Narrative: Patient does have reproducible pain with palpation of the anterior chest wall that is similar to the pain she is experiencing but not the same GI normal to inspection, nondistended, normoactive bowel sounds, soft to palpation and non-tender Extremity no clubbing, cyanosis or edema Extremity Narrative: Pedal pulses are 2+ Neuro oriented x3, CN's II-XII intact bilaterally, moves all extremities and no focal motor deficits Speech: speech normal Psych affect normal Psych Narrative: Very pleasant, eye contact is good, appears comfortable Results Lab / Micro Data 05/06/23 12:10 05/06/23 12:10 Labs: Laboratory Results - last 24 hr 05/06/23 12:10: WBC 8.9, RBC 5.34, Hgb 16.6 H, Hct 49.5 H, MCV 92.7, MCH 31.1, MCHC 33.5, RDW Std Deviation 43.6, RDW Coeff of Aubrey 12.9, Plt Count 182, MPV 9.8, Immature Gran % (Auto) 0.400, Neut % (Auto) 60.8, Lymph % (Auto) 29.0, Barton% (Auto) 8.2, Eos % (Auto) 0.8, Baso % (Auto) 0.8, Absolute Neuts (auto) 5.4, Absolute Lymphs (auto) 2.59, Nucleated RBC % 0, D-Dimer Quant (PE/DVT) 0.54 H*, Sodium 138, Potassium 4.5, Chloride 108 H, Carbon Dioxide 25.0, Anion Gap 5, BUN9, Creatinine 0.74, Estim Creat Clear Calc 71.90, Est GFR (MDRD) Af Amer 102, Est GFR (MDRD) Non-Af 84, BUN/Creatinine Ratio 12.2, Glucose 151 H, Calcium 9.1,Troponin I High Sens 8 05/06/23 14:50: Troponin I High Sens Cancelled 05/06/23 16:00: Troponin I High Sens 6 Radiology Impression Chest X-Ray 05/06/23 12:25 IMPRESSION: No acute abnormality is seen. Focal linear metallic density projected over medial aspect of the left upper lobe most likely representing a foreign object. Electronically Signed: Mega Hewitt MD at 12:40 EDT , Assessment & Plan Assessment/Plan (1) Chest pain: (2) Erythrocytosis: PLAN: Plan Chest pain -Patient with significant coronary heart history and heart score of 5 -Chest pain has been ongoing for 2 weeks and troponin is unremarkable -EKG shows no acute changes consistent with acute ischemia -Check lipids -Check hemoglobin A1c -Continue aspirin -Continue home Plavix -Continue home hydralazine -Continue home statin -Continue metoprolol -Stress test in a.m. -As needed nitro Erythrocytosis -Likely related to her chronic tobacco abuse -We will monitor CAD/HTN/HPL -Patient with previous CABG -And last cardiac catheterization in 2019 -Patient has had PCI x1 since her CABG was performed -Continue dual antiplatelet therapy -Continue home hydralazine -Continue home statin -Continue home metoprolol -Check lipid panel DM-2 -Hold home metformin -Check A1c -SSI -Accu-Cheks -Cardiac/carb controlled diet Suspected COPD -Patient with about a 54-hswi-crlo history -As needed DuoNebs -Recommend outpatient pulmonary medicine follow-up Diabetic neuropathy -Continue home gabapentin Morbid obesity -Suspect patient likely has sleep apnea as she has morbid obesity along with a short thick neck -Would recommend outpatient polysomnography -BMI is 47.5 -Recommend weight loss -Complicates treatment, prognosis, outcomes Tobacco abuse -Recommend cessation -Nicotine patch available DVT prophylaxis -Subcu Lovenox twice daily 40 mg CODE STATUS -Full code Charges/Coding Visit Charges Inpatient E&M: 57308 Init Hosp L2 05/06/231809 <Electronically signed by Harmony Argueta DO> Cosigner Signature (if applicable): CC: Dr. Harmony Argueta DO; Dr. Mac Olvera MD~ Signed [facility] Work Phone: History and physical note Author Sara aMrte [facility] Note Date/Time January 03, 2025 7:42 pm [facility] Medical Records Department [address] [place] [address] H&P Exam - Hospitalist 01/03/25 1839 MR#: [id number] Acct: [id number] Name: CAROL NOLAN Rep #:[id number] 6 : 1960 64 From: Sara Marte MD PCP: Dr. Mac Olvera MD Status:ADM I NO Location: [facility] [id number] HPI - General General Date of Admission: 01/03/25 Date of Service: 01/03/25 Chief Complaint: Nausea, vomiting, abd pain HPI Narrative CAROL ONLAN, is a 64-year-old female history of type 2 diabetes, hypertension, CABG x 2, GERD presented [facility] ED 01/03/2025 with generalized weakness, abdominal pain, nausea vomiting and feeling unwell. She was seeing her primary care physician for a follow-up appointment after a recent discharge and noted that she was weak and at her PCPs office she was noted to have blood pressure with systolics in the 90s that reportedly dropped to 70s when she stood up. She was sent to the ED for further evaluation management. Reportedly she was on an antibiotic for a UTI and then another antibiotic was called in so she is on Bactrim and Levaquin and her last antibiotics was today. In the ED temp 97.6, heart rate 78, blood pressure 125/72, respiratory rate 20 and pulse ox 96% on room air. Orthostats negative. UA does not appear overtly infectious. White blood cell count 11.4 and BMP withBUN of 20 and creatinine 1.39 slightly up from previous. Lactic acid within normal limits. Given complaints of nausea and abdominal pain CT abdomen pelvis obtained with no acute process. Due to patient's weakness and her nausea and vomiting hospitalist contacted for admission. Patient evaluated at bedside she reports that for the past 4 weeks she has had lower abdominal pain that radiatestowards her flanks and nausea and vomiting was only able to eat small things at a time, frequently feels lightheaded and generally unwell and has lost 11 pounds. Reports the burning on urination is better than it was when she is found to have UTI, reports intermittently she will have diarrhea but then most recently had normal bowel movement. Does occasionally get shortness of breath for discomfort in her chest but these are at random and fleeting. Denies any fevers. 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 Hyperlipidemia Hypertension Chest pain Home Medications ?Medication ?Instructions ?Recorded ?Last Taken ?Type nitroglycerin 0.4 mg sublingual 0.4 mg sublingual Q5M PRN CHEST 05/15/15 06/16/17 06:00 History tablet PAIN metoprolol succinate 50 mg 50 mg PO DAILY BLOOD PRESSU RE 02/28/19 05/05/23 History tablet,extended release 24 hr aspirin 81 mg tablet,delayed 162 mg PO DAILY HEART HEA LTH 03/01/19 05/05/23 History release clopidogrel 75 mg tablet 75 mg PO DAILY BLOOD THINNER #90 05/19/19 05/05/23 Rx tabs lisinopril 20 mg tablet 40 mg PO DAILY BLOOD PRESSUR E 10/03/19 05/05/23 History metformin 500 mg tablet,extended 1,500 mg PO DAILY EUGENIA BETES 10/03/19 05/05/23 History release 24 hr rosuvastatin 20 mg tablet 40 mg PO DAILY CHOLESTEROL 1 05/05/23 History fluticasone furoate 200 1 ea inhalation DAILY Unknown History mcg-vilanterol 25 mcg/dose inhalation powder (Breo Ellipta) Allergy/AdvReac Type Severity Reaction Status Date / Time nickel Allergy Rash Verified 01/03/25 11:57 Penicillins (PCN) Allergy Hives Verified 01/03/25 11:57 nicotine (From Nicoderm CQ) AdvReac Severe TERRIBLE Verified 01/03/25 11:57 NIGHTMARES Family History Mother Kidney disease Congestive heart failure Renal failure Father CAD (coronary artery disease) Daughter Hypertension Surgical History History of left heart catheterization (10/05/19) Stented coronary artery (03/03/19) History of tubal ligation History of total right knee replacement History of History of tonsillectomy and adenoidectomy History of rotator cuff surgery History of selective injection of anesthetic agent around lumbar nerve root History of arthroscopic knee surgery History of esophagogastroduodenoscopy (EGD) History of colonoscopy History of cholecystectomy S/P CABG x 2 (10/17/15) Social History Smoking Status: Current every day smoker tobacco type: cigarettes alcohol intake: never substance use type: does not use ROS ROS Narrative General: Denies fever/chills HENT: Denies headache, denies stuffy nose, denies sore throat EYES: Denies changes in vision Resp: Occasional cough and occasional shortness of breath Cardiac: Denies chest pain GI: Abdominal pain suprapubic that radiates around her flanks, nausea and vomiting with difficulty taking p.o., reports she will alternate with some diarrhea for her bowel movements but most recently has been normal : Burning in urination has been improving since her UTI Extremity: Denies swelling MSK: Generalized weakness Neuro: Denies any acute changes in numbness/tingling Heme: Easy bruising Skin: Denies rashes Psychiatric: Feels frustrated with her ongoing symptoms Vital Signs Vital Signs Vital Signs: 01/03/25 11:53 01/03/25 13:04 01/03/25 13:57 Temperature 97.6 F L 97.6 F L Temperature Source Oral Oral Pulse Rate 78 73 Pulse Rate [Lying] Pulse Rate [Sitting (for 1 minute prior to obtaining)] Pulse Rate [Standing (for 1 minute prior to obtaining)] Respiratory Rate 20 H 15 Blood Pressure 125/72 H 99/57 L Blood Pressure [Lying] Blood Pressure [Sitting (for 1 minute prior to obtaining)] Blood Pressure [Standing (for 1 minute prior to obtaining)] Blood Pressure Mean 89 71 Blood Pressure Mean [Lying] Blood Pressure Mean [Sitting (for 1 minute prior to obtaining)] Blood Pressure Mean [Standing (for 1 minute prior to obtaining)] Pulse Ox 96 96 Oxygen Delivery Method Room Air Room Air Room Air 01/03/25 14:00 01/03/25 15:00 01/03/25 16:58 Temperature 98.2 F 97.8 F Temperature Source Oral Temporal Pulse Rate 70 65 Pulse Rate [Lying] 65 Pulse Rate [Sitting (for 1 minute prior to obtaining)] 66 Pulse Rate [Standing (for 1 minute prior to obtaining)] 73 Respiratory Rate 15 17 Blood Pressure 116/67 127/71 H Blood Pressure [Lying] 119/56 L Blood Pressure [Sitting (for 1 minute prior to obtaining)] 125/68 H Blood Pressure [Standing (for 1 minute prior to obtaining)] 122/68 H Blood Pressure Mean 83 89 Blood Pressure Mean [Lying] 77 Blood Pressure Mean [Sitting (for 1 minute prior to obtaining)] 87 Blood Pressure Mean [Standing (for 1 minute prior to obtaining)] 86 Pulse Ox 95 97 Oxygen Delivery Method Room Air Room Air 01/03/25 17:12 Temperature Temperature Source Pulse Rate 74 Pulse Rate [Lying] Pulse Rate [Sitting (for 1 minute prior to obtaining)] Pulse Rate [Standing (for 1 minute prior to obtaining)] Respiratory Rate 12 Blood Pressure 122/68 H Blood Pressure [Lying] Blood Pressure [Sitting (for 1 minute prior to obtaining)] Blood Pressure [Standing (for 1 minute prior to obtaining)] Blood Pressure Mean 86 Blood Pressure Mean [Lying] Blood Pressure Mean [Sitting (for 1 minute prior to obtaining)] Blood Pressure Mean [Standing (for 1 minute prior to obtaining)] Pulse Ox 97 Oxygen Delivery Method Weight Weight: 129.455 kg Body Mass Index (BMI) 46.0 Physical Exam Narrative General: Alert, oriented, no apparent distress HEENT: Atraumatic, normocephalic Eyes: Anicteric, normal conjunctiva, extraocular movements grossly intact Neck: Supple Respiratory: Clear to auscultation bilaterally, normal respiratory effort Cardiovascular: Regular rate and rhythm GI: Soft, tender in various spots but not necessarily reproducible, more on the right side than the left side, no rebound, guarding, rigidity Extremities: No pitting edema Musculoskeletal: Moving all extremities Neuro: No overt focal neurological deficits Skin: No rashes appreciated Psych: Cooperative Results Lab / Micro Data 01/03/25 13:04 01/03/25 13:04 Labs: Laboratory Results - last 24 hr 01/03/25 13:04: WBC 11.4 H, RBC 5.09, Hgb 15.6 H, Hct 47.1 H, MCV 92.5, MCH 30.6, MCHC 33.1, RDW Std Deviation 45.5 H, RDW Coeff of Aubrey 13.3, Plt Count 459 H, MPV 9.3, Immature Gran % (Auto) 0.400, Neut % (Auto) 53.8, Lymph % (Auto) 35.6, Barton % (Auto) 7.7, Eos % (Auto) 1.3, Baso % (Auto) 1.2 H, Absolute Neuts (auto) 6.1, Absolute Lymphs (auto) 4.07, Nucleated RBC % 0, PT 14.6, INR 1.1, APTT 26.3, Sodium 135, Potassium 4.9, Chloride 100, Carbon Dioxide 21.6, Anion Gap 13, BUN 20 H, Creatinine 1.39 H, Estim Creat Clear Calc 54.91, Est GFR (MDRD) Non-Af 42 L, BUN/Creatinine Ratio 14.5, Glucose 133 H, Calcium 9.9, TotalBilirubin 0.50, AST 43 H, ALT 29, Alkaline Phosphatase 57, Total Protein 7.6, Albumin 3.7, Globulin 3.8, Albumin/Globulin Ratio 1.0 01/03/25 13:13: Lactic Acid 1.7 01/03/25 13:38: Urine Color Yellow, Urine Clarity Sl. Cloudy, Urine pH 6.0, Ur Specific [place] 1.020, Urine Protein 30 H, Urine Glucose (UA) Normal, Urine Ketones Negative, Urine Occult Blood 25 H, Urine Nitrite Negative, Urine Bilirubin 1 H, Urine Urobilinogen 1 H, Ur Leukocyte Esterase 25 H, Urine RBC 0-5SEEN, Urine WBC 10-25 SEEN, Ur Squamous Epith Cells 5-10 SEEN, Urine Bacteria 0 SEEN, Urine Mucus 0 SEEN Imaging Radiology Impression Abdomen/Pelvis CT 01/03/25 13:55 IMPRESSION: Fatty infiltration of the liver. Status post cholecystectomy. Stable left renal cyst. Small umbilical hernia containing fat. Sigmoid diverticulosis. Reading Location: [id number] Assessment & Plan Assessment/Plan (1) Intractable nausea: PLAN: Plan # Nausea/vomiting/abdominal pain/weight loss -CT abdomen/pelvis with no acute process however patient reports weight loss andthat she has only been able to eat small amounts at a time -Given her diabetes query if she could have gastroparesis -Will order a gastric emptying study -Antiemetics -Will start with transitional diet and advance as tolerated, can scale back to liquids if she continues to have symptoms -Gentle IV fluids -Will check lipase -Lower suspicion for ulcers/GERD appears at some point she was post be on a PPI and is not taking this, will have patient on PPI for now to see if this helps -Can consider GI consult if no improvement - Will check TSH - UA did not appear infectious, patient did have blood and urine cultures obtained in the ED, of note last admission she had blood cultures positive for Staph hominis hominis, unclear if this was contaminant but cultures were alreadybeen repeated as below #Type 2 diabetes mellitus -Glucose checks and sliding scale insulin - Will check A1c #Hx of CAD -w/ previous CABG x 2 -Continue home medications #Tobacco use -Advise cessation -Nicotine replacement available if desired, presently does not want any #Hypertension - Patient has had blood pressure that has been on the low end of normal, will hold lisinopril, will decrease her metoprolol #Hx COPD -Continue home inhalers -Incentive spirometer #Morbid obesity -BMI documented as 46.1 kg/m? at time of admission -Complicates treatment, prognosis, outcomes -Recommend weight loss and lifestyle changes #DVT ppx: Lovenox subcu Sara Marte MD Charges/Coding Visit Charges Inpatient E&M: 24248 Init Hosp L2 01/03/251941 <Electronically signed by Sara Marte MD> Cosigner Signature (if applicable): CC: Dr. Sara Marte MD; Dr. Mac Olvera MD~ Signed [facility] Work Phone: [facility] for referral (narrative)* Outpatient Procedure (Routine) - Authorized Specialty Diagnoses / Procedures Referred By Sukhdev martinez Referred To [facility] Diagnoses Carotid artery stenosis, asymptomatic, bilateral Procedures US CAROTID ARTERIES LEE VAS LAB DUPLEX SCAN EXTRACRANIAL ART COMPL BI STUDY Rc Delacruz MD [address] [place] [address] [facility] [address] [address] Referral ID Status Reason Start Date Expiration Date Visits Requested Visits Authorized [id number] Authorized Auto-Generat ed Referral 12/02/2021 12/02/2022 1 1 [facility] for referral (narrative)* Diagnostic Procedure Only (Routine) - Pending Review Specialty Diagnoses / Procedures Referred By Sukhdev martinez Referred To Contact US IMAGING Diagnoses Supraclavicular fossa fullness Procedures US HEAD/NECK SOFT TISSUE OTHER US SOFT TISSUE HEAD & NECK REAL TIME IMGE Mac Deluca MD [address] [place] [address] [facility] Referral ID Status Reason Start Date Expiration Date Visits Requested Visits Authorized [id number] Pending Review Auto-Generat ed Referral 02/05/2022 03/07/2023 1 1 * Consult, Test, Treat (Routine) - Authorized Specialty Diagnoses / Procedures Referred By Ashwiniac t Referred To Contact General Surgery Diagnoses Rectal bleeding Procedures CONSULT TO GENERAL SURGERY OFFICE/OUTPATIENT [facility] MDM 60-74 MINUTES Mac Olvera MD [address] [place] [address] Referral ID Status Reason Start Date Expiration Date Visits Requested Visits Authorized [id number] Authorized PCP Requested Referral 02/05/2022 02/05/2023 1 1 * Diagnostic Procedure Only (Routine) - Pending Review Specialty Diagnoses / Procedures Referred By Sukhdev t Referred To Contact BR IMAGING Diagnoses Screening breast examination Procedures MOISES SCREENING SCREENING MAMMOGRAPHY BI 2-VIEW BREAST INC CAD Mac Olvera MD [address] [place] [address] [facility] Imaging [address] [place] [address] Referral ID Status Reason Start Date Expiration Date Visits Requested Visits Authorized [id number] Pending Review Auto-Generat ed Referral 02/05/2022 03/07/2023 1 1 * Medication Prior Authorization - Closed Specialty Diagnoses / Procedures Referred By Sukhdev t Referred To Contact Mac Olvera MD [address] [place] [address] Referral ID Status Reason Start Date Expiration Date Visits Re quested Visits Authorized [id number] Closed 1 1 [facility] for referral (narrative)* Outpatient Procedure (Routine) - Closed Specialty Diagnoses / Procedures Referred By Sukhdev t Referred To [facility] Diagnoses Palpitations Procedures ECG COMPLETE ECG ROUTINE ECG W/LEAST 12 LDS W/I&R Rc Delacruz MD [address] [place] [address] [facility] [place] [address] [place] [address] Referral ID Status Reason Start Date Expiration Date V isits Requested Visits Authorized [id number] Closed Auto-Generate d Referral 06/24/2022 06/24/2023 1 1 [facility] for referral (narrative)* Diagnostic Procedure Only (Routine) - Closed Specialty Diagnoses / Procedures Referred By Contac t Referred To Contact XR IMAGING Diagnoses Chronic pain of left knee Procedures XR KNEE GENERAL 4V AP BOTH/PA BOTH/LAT/MERC LEFT RADIOLOGIC EXAM KNEE COMPLETE 4/MORE VIEWS Mac Olvera MD [address] [place] [address] Xr Imaging Referral ID Status Reason Start Date Expiration Date V isits Requested Visits Authorized [id number] Closed Auto-Generate d Referral 10/31/2022 11/30/2023 1 1 [facility] for referral (narrative)* Diagnostic Procedure Only (Routine) - Pending Review Specialty Diagnoses / Procedures Referred By Sukhdev martinez Referred To Contact BR IMAGING Diagnoses Encounter for screening mammogram for breast cancer Procedures MOISES SCREENING SCREENING MAMMOGRAPHY BI 2-VIEW BREAST INC CAD Mac Olvera MD [address] [place] [address] [facility] [address] [place] [address] Referral ID Status Reason Start Date Expiration Date Visits Requested Visits Authorized [id number] Pending Review Auto-Generat ed Referral 01/14/2023 02/13/2024 1 1 T [facility] for referral (narrative)* Outpatient Procedure (Routine) - Closed Specialty Diagnoses / Procedures Referred By Ashwiniac t Referred To Contact [facility] Diagnoses History of colonic polyps Abdominal discomfort Gastroesophageal reflux disease with esophagitis without hemorrhage Procedures EGD DIAGNOSTIC EGD DIAGNOSTIC ESOPHAGOGASTRODUODENOSC OPY TRANSORAL DIAGNOSTIC Delicia Bertrand PA-C [address] [place] [address] [address] Referral ID Status Reason Start Date Expiration Date V isits Requested Visits Authorized [id number] Closed Auto-Generate d Referral 09/30/2022 10/01/2023 1 1 * Outpatient Procedure (Routine) - Closed Specialty Diagnoses / Procedures Referred By Sukhdev martinez Referred To Contact [facility] [place] Diagnoses History of colonic polyps Abdominal discomfort Gastroesophageal reflux disease with esophagitis without hemorrhage Procedures COLONOSCOPY SCREENING COLONOSCOPY SCREENING COLONOSCOPY FLX DX W/COLLJ SPEC WHEN PFRMD Delicia Bertrand PA-C [address] [place] [address] [address] Referral ID Status Reason Start Date Expiration Date V isits Requested Visits Authorized [id number] Closed Auto-Generate d Referral 09/30/2022 10/01/2023 1 1 [facility] for referral (narrative)* Diagnostic Procedure Only (Routine) - Authorized Specialty Diagnoses / Procedures Referred By Sukhdev martinez Referred To Contact [facility] [place] Diagnoses PASCUAL (obstructive sleep apnea) Procedures HOME SLEEP APNEA TEST (HSAT) SLEEP STD AIRFLOW HRT RATE&O2 SAT EFFORT UNATT Mac Olvera MD [address] [place] [address] [address] Referral ID Status Reason Start Date Expiration Date Visits Requested Visits Authorized [id number] Authorized Auto-Generat ed Referral 08/18/2023 08/17/2024 1 1 * Consult, Test, Treat (Routine) - Authorized Specialty Diagnoses / Procedures Referred By Contac t Referred To Contact Cardiology Diagnoses Chest pain, unspecified type Procedures CONSULT TO CARDIOLOGY OFFICE/OUTPATIENT [facility] HIGH MDM 60 MINUTES Mac Olvera MD [address] [place] [address] Referral ID Status Reason Start Date Expiration Date Visits Requested Visits Authorized [id number] Authorized PCP Requested Referral 08/18/2023 08/17/2024 1 1 * Outpatient Procedure (Routine) - Pending Review Specialty Diagnoses / Procedures Referred By Contac t Referred To [facility] Diagnoses Chest pain, unspecified type Procedures ECG COMPLETE ECG ROUTINE ECG W/LEAST 12 LDS W/I&R Mac Olvera MD [address] [place] [address] [facility] [place] [address] [facility] [place] [place] [address] Referral ID Status Reason Start Date Expiration Date Visits Requested Visits Authorized [id number] Pending Review Auto-Generat ed Referral 08/18/2023 08/17/2024 1 1 [facility] for referral (narrative)* Diagnostic Procedure Only (Routine) - Authorized Specialty Diagnoses / Procedures Referred By Contac t Referred To Contact US IMAGING Diagnoses Elevated liver enzymes Polycythemia Procedures US ABD RIGHT UPPER QUADRANT US ABDOMINAL REAL TIME W/IMAGE LIMITED Mac Olvera MD [address] [place] [address] [place] [address] Referral ID Status Reason Start Date Expiration Date Visits Requested Visits Authorized [id number] Authorized Auto-Generat ed Referral 08/27/2023 09/25/2024 1 1 [facility] for referral (narrative)* Diagnostic Procedure Only (Routine) - Closed Specialty Diagnoses / Procedures Referred By Contac t Referred To Contact US IMAGING Diagnoses Elevated liver enzymes Polycythemia Procedures US ABD RIGHT UPPER QUADRANT US ABDOMINAL REAL TIME W/IMAGE LIMITED Mac Olvera MD [address] [place] [address] [place] [address] Referral ID Status Reason Start Date Expiration Date V isits Requested Visits Authorized [id number] Closed Auto-Generate d Referral 08/27/2023 09/25/2024 1 1 [facility] for referral (narrative)* Diagnostic Procedure Only (Routine) - Pending Review Specialty Diagnoses / Procedures Referred By Contac t Referred To Contact XR IMAGING Diagnoses DDD (degenerative disc disease), lumbar Procedures XR LUMBAR GENERAL 3V AP/LAT/L5-S1 RADEX SPINE LUMBOSACRAL 2/3 VIEWS Mac Olvera MD [address] [place] [address] [place] [address] Referral ID Status Reason Start Date Expiration Date Visits Requested Visits Authorized [id number] Pending Review Auto-Generat ed Referral 11/09/2023 2024 1 1 * Consult, Test, Treat (Routine) - Authorized Specialty Diagnoses / Procedures Referred By Contac t Referred To Contact Pain Management Diagnoses DDD (degenerative disc disease), lumbar Procedures CONSULT TO PAIN MGT OFFICE/OUTPATIENT [facility] 60 MINUTES Mac Olvera MD [address] [place] [address] Referral ID Status Reason Start Date Expiration Date Visits Requested Visits Authorized [id number] Authorized PCP Requested Referral 11/09/2023 11/08/2024 1 1 * Diagnostic Procedure Only (Routine) - Pending Review Specialty Diagnoses / Procedures Referred By Contac t Referred To Contact BR IMAG[facility] Diagnoses Screening breast examination Procedures MOISES SCREENING SCREENING MAMMOGRAPHY BI 2-VIEW BREAST INC CAD Mac Olvera MD [address] [place] [address] [facility] [address] [place] [id number] Referral ID Status Reason Start Date Expiration Date Visits Requested Visits Authorized [id number] Pending Review Auto-Generat ed Referral 11/09/2023 2024 1 1 [facility] for referral (narrative)* Diagnostic Procedure Only (Routine) - Closed Specialty Diagnoses / Procedures Referred By Contac t Referred To Contact XR IMAGING Diagnoses Acute pain of right shoulder Procedures XR SHOULDER GENERAL 3V OR MORE AP/TRUE AP/OTHER RIGHT RADEX SHOULDER COMPLETE MINIMUM 2 VIEWS Mac Olvera MD [address] [place] [address] [place] [address] Referral ID Status Reason Start Date Expiration Date V isits Requested Visits Authorized [id number] Closed Auto-Generate d Referral 01/25/2024 02/23/2025 1 1 [facility] for referral (narrative)* Diagnostic Procedure Only (Routine) - Closed Specialty Diagnoses / Procedures Referred By Contac t Referred To Contact US IMAGING Diagnoses Enlarged aorta (HCC) Procedures US DOPPLER AORTA DUP-SCAN ARTL ARMIDA ABDL/PEL/SCROT&/RPR ORGN LMT Mac Olvera MD [address] [place] [address] [place] [address] Referral ID Status Reason Start Date Expiration Date V isits Requested Visits Authorized [id number] Closed Auto-Generate d Referral 01/27/2024 02/25/2025 1 1 * Diagnostic Procedure Only (Routine) - Closed Specialty Diagnoses / Procedures Referred By Contac t Referred To Contact US IMAGING Diagnoses Enlarged aorta (HCC) Procedures US ABD AORTA US RETROPERITONEAL REAL TIME W/IMAGE LIMITED Mac Olvera MD [address] [place] [address] [place] [address] Referral ID Status Reason Start Date Expiration Date V isits Requested Visits Authorized [id number] Closed Auto-Generate d Referral 01/27/2024 02/25/2025 1 1 [facility] for referral (narrative)* Diagnostic Procedure Only (Routine) - Closed Specialty Diagnoses / Procedures Referred By Contac t Referred To Contact US IMAGING Diagnoses Enlarged aorta (HCC) Procedures US DOPPLER AORTA DUP-SCAN ARTL ARMIDA ABDL/PEL/SCROT&/RPR ORGN LMT Mac Olvera MD [address] [place] [address] [place] [address] Referral ID Status Reason Start Date Expiration Date V isits Requested Visits Authorized [id number] Closed Auto-Generate d Referral 01/27/2024 02/25/2025 1 1 * Diagnostic Procedure Only (Routine) - Closed Specialty Diagnoses / Procedures Referred By Contac t Referred To Contact US IMAGING Diagnoses Enlarged aorta (HCC) Procedures US ABD AORTA US RETROPERITONEAL REAL TIME W/IMAGE LIMITED Mac Olvera MD [address] [place] [address] [place] [address] Referral ID Status Reason Start Date Expiration Date V isits Requested Visits Authorized [id number] Closed Auto-Generate d Referral 01/27/2024 02/25/2025 1 1 [facility] for referral (narrative)* Diagnostic Procedure Only (Routine) - Closed Specialty Diagnoses / Procedures Referred By Contac t Referred To Contact XR IMAGING Diagnoses Chronic pain of left knee Procedures XR KNEE GENERAL 4V AP BOTH/PA BOTH/LAT/MERC LEFT RADIOLOGIC EXAM KNEE COMPLETE 4/MORE VIEWS Mac Olvera MD [address] [place] [address] [place] [address] Referral ID Status Reason Start Date Expiration Date V isits Requested Visits Authorized [id number] Closed Auto-Generate d Referral 10/31/2022 11/30/2023 1 1 [facility] for referral (narrative)* Diagnostic Procedure Only (Routine) - New Request Specialty Diagnoses / Procedures Referred By Contac t Referred To Contact XR IMAGING Diagnoses Screening for osteoporosis Asymptomatic menopause Procedures DXA-AXIAL SKELETON DXA BONE DENSITY STUDY 1/> SITES AXIAL SKEL Lauryn Baldwin APRN.CNP [address] [place] [address] [place] [address] Referral ID Status Reason Start Date Expiration Date Visits Requested Visits Authorized [id number] New Request Auto-Generat ed Referral 05/21/2025 1 1 [facility] for referral (narrative)No reason for [facility] Reason for visit Narrative* Outpatient Procedure (Routine) - Closed Specialty Diagnoses / Procedures Referred By Contac t Referred To Contact [facility] Diagnoses History of colonic polyps Abdominal discomfort Gastroesophageal reflux disease with esophagitis without hemorrhage Procedures EGD DIAGNOSTIC EGD DIAGNOSTIC ESOPHAGOGASTRODUODENOSC OPY TRANSORAL DIAGNOSTIC Delicia Bertrand PA-C [address] [place] [address] [facility] [place] [address] [place] [address] Referral ID Status Reason Start Date Expiration Date V isits Requested Visits Authorized [id number] Closed Auto-Generate d Referral 09/30/2022 10/01/2023 1 1 [facility] for visit Narrative* Diagnostic Procedure Only (Routine) - Closed Specialty Diagnoses / Procedures Referred By Contac t Referred To Contact XR IMAGING Diagnoses DDD (degenerative disc disease), lumbar Procedures XR LUMBAR GENERAL 3V AP/LAT/L5-S1 RADEX SPINE LUMBOSACRAL 2/3 VIEWS Mac Olvera MD [address] [place] [address] [place] [address] Referral ID Status Reason Start Date Expiration Date V isits Requested Visits Authorized [id number] Closed Auto-Generate d Referral 11/09/2023 2024 1 1 [facility] for visit Narrative* Diagnostic Procedure Only (Routine) - Closed Specialty Diagnoses / Procedures Referred By Sukhdev martinez Referred To Contact US IMAGING Diagnoses Enlarged aorta (HCC) Procedures US ABD AORTA US RETROPERITONEAL REAL TIME W/IMAGE LIMITED Mac Olvera MD [address] [place] [address] [place] [address] Referral ID Status Reason Start Date Expiration Date V isits Requested Visits Authorized [id number] Closed Auto-Generate d Referral 01/27/2024 02/25/2025 1 1 [facility] for visit Narrative* Diagnostic Procedure Only (Routine) - Closed Specialty Diagnoses / Procedures Referred By Sukhdev martinez Referred To Contact XR IMAGING Diagnoses Chronic pain of left knee Procedures XR KNEE GENERAL 4V AP BOTH/PA BOTH/LAT/MERC LEFT RADIOLOGIC EXAM KNEE COMPLETE 4/MORE VIEWS Mac Olvera MD [address] [place] [address] [place] [address] Referral ID Status Reason Start Date Expiration Date V isits Requested Visits Authorized [id number] Closed Auto-Generate d Referral 10/31/2022 11/30/2023 1 1 [facility] Summary Purpose Family History Relationship Condition Age at Onset Recorded Date/T yury mother Kidney disorder Unknown Congestive heart failure Unknown Renal failure Unknown father Coronary artery disease Unknown daughter Hypertension Unknown Advance Directives Documents on File Type Date Recorded Patient Coat Joiner Expl anation Advance Directive(s) 04/06/2018 5:36 AM Documents on File Type Date Recorded Patient Coat Joiner Expl anation Advance Directive(s) 04/06/2018 5:36 AM Advance Directive Response Recorded Date/ Time Advance Directives No June 17, 2017 4:12pm Living Will No May 06 12:11pm Power of Software Security Architect No May 06, 2023 12:11pm Advance Directive Response Recorded Date/ Time Advance Directives No June 17, 2017 4:12pm Living Will No May 06 6:52pm Power of Software Security Architect No May 06, 2023 6:52pm Advance Directive Response Recorded Date/ Time Do you have a Healthcare Power of Software Security Architect? No December 21, 2024 9:23pm Advance Directives No June 17, 2017 4:12pm Advance Directive Response Recorded Date/ Time Do you have a Healthcare Power of Software Security Architect? No January 03, 2025 11:57am Do you have a Healthcare Power of Software Security Architect? No December 21, 2024 9:23pm Advance Directives No June 17, 2017 4:12pm Reason for Referral Specialty Diagnoses / Procedures Referred By Contac t Referred To Contact Orthopedics Diagnoses Osteoarthritis of knee, unspecified laterality, unspecified osteoarthritis type Procedures CONSULT TO ORTHOPAEDICS Mac Olvera MD [address] [place] [address] Referral ID Status Reason Start Date Expiration Date Visits Requested Visits Authorized [id number] Ref Not Required PCP Requested Referral 11/03/2022 11/03/2023 1 1 Specialty Diagnoses / Procedures Referred By Contac t Referred To Contact CT IMAGING Diagnoses Tobacco use current Procedures CT LUNG SCREEN WO IVCON COMPUTED TOMOGRAPHY THORAX LW DOSE LNG CA SCR C- Shanita Polk, CUSHION FORMER.[employer] PRODUCTION ASSOCIATE [address] [place] [address] [facility] [place] [address] Referral ID Status Reason Start Date Expiration Date Visits Requested Visits Authorized [id number] Additional Clinical Info Needed Auto-Generat ed Referral 09/14/2023 10/13/2024 1 1 Referral ID Status Reason Start Date Expiration Date V isits Requested Visits Authorized [id number] Closed Auto-Generate d Referral 09/17/2023 11/16/2023 1 1 Specialty Diagnoses / Procedures Referred By Contac t Referred To Contact Urology Diagnoses Dysuria Procedures CONSULT TO UROLOGY OFFICE/OUTPATIENT [facility] 60 MINUTES Mac Olvera MD [address] [place] [address] Referral ID Status Reason Start Date Expiration Date Visits Requested Visits Authorized [id number] Authorized PCP Requested Referral 11/11/2023 11/10/2024 1 1 Specialty Diagnoses / Procedures Referred By Contac t Referred To Contact CT IMAGING Diagnoses Tobacco use current Encounter for screening for lung cancer Procedures CT LUNG SCREEN WO IVCON COMPUTED TOMOGRAPHY THORAX LW DOSE LNG CA SCR [facility] CenterShanita jerry, CUSHION FORMER.[employer] ASSOCIATE [address] [place] [id number] [facility] [place] [id number] Referral ID Status Reason Start Date Expiration Date Visits Requested Visits Authorized [id number] Authorized Auto-Generat ed Referral 04/18/2024 05/18/2025 1 1 Specialty Diagnoses / Procedures Referred By Sukhdev t Referred To Contact CT IMAGING Diagnoses Lung nodules Procedures CT LUNG FOLLOWUP WO IVCON DIAGNOSTIC COMPUTED TOMOGRAPHY THORAX W/O CNTRST Shanita Polk, CUSHION FORMER.[employer] ASSOCIATE [address] [place] [id number] [facility] [place] [id number] Referral ID Status Reason Start Date Expiration Date V isits Requested Visits Authorized [id number] Closed Auto-Generate d Referral 10/07/2023 11/05/2024 1 1 Chief Complaint and Reason for Visit Chief Complaint CP Reason for Visit Chest pain Erythrocytosis S/P CABG x 2 Tobacco use disorder Chief Complaint CP CP CP Reason for Visit Chest pain Erythrocytosis S/P CABG x 2 Tobacco use disorder Chief Complaint Admit Date GENERAL ILLNESS December 21, 2024 7:13 pm Chief Complaint Admit Date GENERAL ILLNESS December 21, 2024 7:13 pm ABD PAIN N/V January 03, 2025 6:39 pm Reason for Visit Admit Date Intractable nausea January 03, 2025 6:39 pm Medications Administered Section Inactive Administered Medications - up to 3 most recent administrations Medication Order MAR Action Action Date Dose Rate Site benzocaine 20% 1 [place] (TOPEX) 1 [place], TOPICAL, DIRECTED, Starting on Thu11/28/22 at 1000, Until Thu11/28/22 at 1359, DOSING DIRECTED BY PHYSICIAN FOR PROCEDURAL SEDATION ONLY - Pharmaceutical Waste: Aerosol -, Intraprocedure Given 11/28/2022 9:17 AM EDT 2 Sprays diphenhydrAMINE 12.5-50 mg injection (BENADRYL) 12.5-50 mg, INTRAVENOUS, DIRECTED, Starting on Thu11/28/22 at 1000, Until Thu11/28/22 at 1359, DOSING DIRECTED BY PHYSICIAN FOR PROCEDURAL SEDATION ONLY, Intraprocedure Given 11/28/2022 9:20 AM EDT 50 mg fentaNYL 50 mcg/mL 25-100 mcg injection (SUBLIMAZE) 25-100 mcg, INTRAVENOUS, DIRECTED, Starting on Thu11/28/22 at 1000, Until Thu11/28/22 at 1359, DOSING DIRECTED BY PHYSICIAN FOR PROCEDURAL SEDATION ONLY, Intraprocedure Given 11/28/2022 9:45 AM EDT 50 mcg Given 11/28/2022 9:18 AM EDT 50 mcg lactated ringers iv infusion 75 mL/hr, INTRAVENOUS, CONTINUOUS, Starting on Thu11/28/22 at 0900, Until Thu11/28/22 at 1003, Preprocedure New Bag/Syringe/Bottle 11/28/2022 8:40 AM EDT 30 mL/hr 30 mL/hr midazolam 1-5 mg injection (VERSED) 1-5 mg, INTRAVENOUS, DIRECTED, Starting on Thu11/28/22 at 1000, Until Thu11/28/22 at 1359, DOSING DIRECTED BY PHYSICIAN FOR PROCEDURAL SEDATION ONLY, Intraprocedure Given 11/28/2022 9:45 AM EDT 1 mg Given 11/28/2022 9:32 AM EDT 2 mg Given 11/28/2022 9:21 AM EDT 2 mg Additional Source Comments INFORMATION SOURCE (unrecogn ized section and content) DATE CREATED AUTHOR 12/31/2017 [facility] DATE CREATED AUTHOR AUTHOR'S ORGANIZ ATION 11/26/2022 [facility] DATE CREATED AUTHOR AUTHOR'S ORGANIZ ATION 05/29/2024 [facility] DATE CREATED AUTHOR AUTHOR'S ORGANIZ ATION 12/25/2024 [facility] DATE CREATED AUTHOR AUTHOR'S ORGANIZ ATION 12/27/2024 [facility] Source Comments (unrecognize d section and content) In the event this informatio n is protected by the Federal Confidentiality of Alcohol and Drug Abuse Patient Records regulations: The Federal rules restrict any use of the information to criminally investigate or prosecute any alcohol or drug abuse patient.[facility] HospitalIn the event this information is protected by the Federal Confidentiality of Alcohol and Drug Abuse Patient Records regulations: The Federal rules restrict any use of the information to criminally investigate or prosecute any alcohol or drug abuse patient.[facility] HospitalIn the event this information is protected by the Federal Confidentiality of Alcohol and Drug Abuse Patient Records regulations: The Federal rules restrict any use of the information to criminally investigate or prosecute any alcohol or drug abuse patient.[facility] HospitalIn the event this information is protected by the Federal Confidentiality of Alcohol and Drug Abuse Patient Records regulations: The Federal rules restrict any use of the information to criminally investigate or prosecute any alcohol or drug abuse patient.[facility] HospitalIn the event this information is protected by the Federal Confidentiality of Alcohol and Drug Abuse Patient Records regulations: The Federal rules restrict any use of the information to criminally investigate or prosecute any alcohol or drug abuse patient.[facility] HospitalIn the event this information is protected by the Federal Confidentiality of Alcohol and Drug Abuse Patient Records regulations: The Federal rules restrict any use of the information to criminally investigate or prosecute any alcohol or drug abuse patient.[facility] HospitalIn the event this information is protected by the Federal Confidentiality of Alcohol and Drug Abuse Patient Records regulations: The Federal rules restrict any use of the information to criminally investigate or prosecute any alcohol or drug abuse patient.[facility] HospitalIn the event this information is protected by the Federal Confidentiality of Alcohol and Drug Abuse Patient Records regulations: The Federal rules restrict any use of the information to criminally investigate or prosecute any alcohol or drug abuse patient.[facility] HospitalIn the event this information is protected by the Federal Confidentiality of Alcohol and Drug Abuse Patient Records regulations: The Federal rules restrict any use of the information to criminally investigate or prosecute any alcohol or drug abuse patient.[facility] HospitalIn the event this information is protected by the Federal Confidentiality of Alcohol and Drug Abuse Patient Records regulations: The Federal rules restrict any use of the information to criminally investigate or prosecute any alcohol or drug abuse patient.[facility] HospitalIn the event this information is protected by the Federal Confidentiality of Alcohol and Drug Abuse Patient Records regulations: The Federal rules restrict any use of the information to criminally investigate or prosecute any alcohol or drug abuse patient.[facility] HospitalIn the event this information is protected by the Federal Confidentiality of Alcohol and Drug Abuse Patient Records regulations: The Federal rules restrict any use of the information to criminally investigate or prosecute any alcohol or drug abuse patient.[facility] HospitalIn the event this information is protected by the Federal Confidentiality of Alcohol and Drug Abuse Patient Records regulations: The Federal rules restrict any use of the information to criminally investigate or prosecute any alcohol or drug abuse patient.[facility] HospitalIn the event this information is protected by the Federal Confidentiality of Alcohol and Drug Abuse Patient Records regulations: The Federal rules restrict any use of the information to criminally investigate or prosecute any alcohol or drug abuse patient.[facility] HospitalIn the event this information is protected by the Federal Confidentiality of Alcohol and Drug Abuse Patient Records regulations: The Federal rules restrict any use of the information to criminally investigate or prosecute any alcohol or drug abuse patient.[facility] HospitalIn the event this information is protected by the Federal Confidentiality of Alcohol and Drug Abuse Patient Records regulations: The Federal rules restrict any use of the information to criminally investigate or prosecute any alcohol or drug abuse patient.[facility] HospitalIn the event this information is protected by the Federal Confidentiality of Alcohol and Drug Abuse Patient Records regulations: The Federal rules restrict any use of the information to criminally investigate or prosecute any alcohol or drug abuse patient.[facility] HospitalIn the event this information is protected by the Federal Confidentiality of Alcohol and Drug Abuse Patient Records regulations: The Federal rules restrict any use of the information to criminally investigate or prosecute any alcohol or drug abuse patient.[facility] HospitalIn the event this information is protected by the Federal Confidentiality of Alcohol and Drug Abuse Patient Records regulations: The Federal rules restrict any use of the information to criminally investigate or prosecute any alcohol or drug abuse patient.[facility] HospitalIn the event this information is protected by the Federal Confidentiality of Alcohol and Drug Abuse Patient Records regulations: The Federal rules restrict any use of the information to criminally investigate or prosecute any alcohol or drug abuse patient.[facility] HospitalIn the event this information is protected by the Federal Confidentiality of Alcohol and Drug Abuse Patient Records regulations: The Federal rules restrict any use of the information to criminally investigate or prosecute any alcohol or drug abuse patient.[facility] HospitalIn the event this information is protected by the Federal Confidentiality of Alcohol and Drug Abuse Patient Records regulations: The Federal rules restrict any use of the information to criminally investigate or prosecute any alcohol or drug abuse patient.[facility] HospitalIn the event this information is protected by the Federal Confidentiality of Alcohol and Drug Abuse Patient Records regulations: The Federal rules restrict any use of the information to criminally investigate or prosecute any alcohol or drug abuse patient.[facility] HospitalIn the event this information is protected by the Federal Confidentiality of Alcohol and Drug Abuse Patient Records regulations: The Federal rules restrict any use of the information to criminally investigate or prosecute any alcohol or drug abuse patient.[facility] HospitalIn the event this information is protected by the Federal Confidentiality of Alcohol and Drug Abuse Patient Records regulations: The Federal rules restrict any use of the information to criminally investigate or prosecute any alcohol or drug abuse patient.[facility] HospitalIn the event this information is protected by the Federal Confidentiality of Alcohol and Drug Abuse Patient Records regulations: The Federal rules restrict any use of the information to criminally investigate or prosecute any alcohol or drug abuse patient.[facility] HospitalIn the event this information is protected by the Federal Confidentiality of Alcohol and Drug Abuse Patient Records regulations: The Federal rules restrict any use of the information to criminally investigate or prosecute any alcohol or drug abuse patient.[facility] HospitalIn the event this information is protected by the Federal Confidentiality of Alcohol and Drug Abuse Patient Records regulations: The Federal rules restrict any use of the information to criminally investigate or prosecute any alcohol or drug abuse patient.[facility] HospitalIn the event this information is protected by the Federal Confidentiality of Alcohol and Drug Abuse Patient Records regulations: The Federal rules restrict any use of the information to criminally investigate or prosecute any alcohol or drug abuse patient.[facility] HospitalIn the event this information is protected by the Federal Confidentiality of Alcohol and Drug Abuse Patient Records regulations: The Federal rules restrict any use of the information to criminally investigate or prosecute any alcohol or drug abuse patient.[facility] HospitalIn the event this information is protected by the Federal Confidentiality of Alcohol and Drug Abuse Patient Records regulations: The Federal rules restrict any use of the information to criminally investigate or prosecute any alcohol or drug abuse patient.[facility] HospitalIn the event this information is protected by the Federal Confidentiality of Alcohol and Drug Abuse Patient Records regulations: The Federal rules restrict any use of the information to criminally investigate or prosecute any alcohol or drug abuse patient.[facility] HospitalIn the event this information is protected by the Federal Confidentiality of Alcohol and Drug Abuse Patient Records regulations: The Federal rules restrict any use of the information to criminally investigate or prosecute any alcohol or drug abuse patient.[facility] HospitalIn the event this information is protected by the Federal Confidentiality of Alcohol and Drug Abuse Patient Records regulations: The Federal rules restrict any use of the information to criminally investigate or prosecute any alcohol or drug abuse patient.[facility] HospitalIn the event this information is protected by the Federal Confidentiality of Alcohol and Drug Abuse Patient Records regulations: The Federal rules restrict any use of the information to criminally investigate or prosecute any alcohol or drug abuse patient.[facility] HospitalIn the event this information is protected by the Federal Confidentiality of Alcohol and Drug Abuse Patient Records regulations: The Federal rules restrict any use of the information to criminally investigate or prosecute any alcohol or drug abuse patient.[facility] HospitalIn the event this information is protected by the Federal Confidentiality of Alcohol and Drug Abuse Patient Records regulations: The Federal rules restrict any use of the information to criminally investigate or prosecute any alcohol or drug abuse patient.[facility] HospitalIn the event this information is protected by the Federal Confidentiality of Alcohol and Drug Abuse Patient Records regulations: The Federal rules restrict any use of the information to criminally investigate or prosecute any alcohol or drug abuse patient.[facility] HospitalIn the event this information is protected by the Federal Confidentiality of Alcohol and Drug Abuse Patient Records regulations: The Federal rules restrict any use of the information to criminally investigate or prosecute any alcohol or drug abuse patient.[facility] HospitalIn the event this information is protected by the Federal Confidentiality of Alcohol and Drug Abuse Patient Records regulations: The Federal rules restrict any use of the information to criminally investigate or prosecute any alcohol or drug abuse patient.[facility] HospitalIn the event this information is protected by the Federal Confidentiality of Alcohol and Drug Abuse Patient Records regulations: The Federal rules restrict any use of the information to criminally investigate or prosecute any alcohol or drug abuse patient.[facility] HospitalIn the event this information is protected by the Federal Confidentiality of Alcohol and Drug Abuse Patient Records regulations: The Federal rules restrict any use of the information to criminally investigate or prosecute any alcohol or drug abuse patient.[facility] HospitalIn the event this information is protected by the Federal Confidentiality of Alcohol and Drug Abuse Patient Records regulations: The Federal rules restrict any use of the information to criminally investigate or prosecute any alcohol or drug abuse patient.[facility] HospitalIn the event this information is protected by the Federal Confidentiality of Alcohol and Drug Abuse Patient Records regulations: The Federal rules restrict any use of the information to criminally investigate or prosecute any alcohol or drug abuse patient.[facility] HospitalIn the event this information is protected by the Federal Confidentiality of Alcohol and Drug Abuse Patient Records regulations: The Federal rules restrict any use of the information to criminally investigate or prosecute any alcohol or drug abuse patient.[facility] HospitalIn the event this information is protected by the Federal Confidentiality of Alcohol and Drug Abuse Patient Records regulations: The Federal rules restrict any use of the information to criminally investigate or prosecute any alcohol or drug abuse patient.[facility] HospitalIn the event this information is protected by the Federal Confidentiality of Alcohol and Drug Abuse Patient Records regulations: The Federal rules restrict any use of the information to criminally investigate or prosecute any alcohol or drug abuse patient.[facility] HospitalIn the event this information is protected by the Federal Confidentiality of Alcohol and Drug Abuse Patient Records regulations: The Federal rules restrict any use of the information to criminally investigate or prosecute any alcohol or drug abuse patient.[facility] HospitalIn the event this information is protected by the Federal Confidentiality of Alcohol and Drug Abuse Patient Records regulations: The Federal rules restrict any use of the information to criminally investigate or prosecute any alcohol or drug abuse patient.[facility] HospitalIn the event this information is protected by the Federal Confidentiality of Alcohol and Drug Abuse Patient Records regulations: The Federal rules restrict any use of the information to criminally investigate or prosecute any alcohol or drug abuse patient.[facility] HospitalIn the event this information is protected by the Federal Confidentiality of Alcohol and Drug Abuse Patient Records regulations: The Federal rules restrict any use of the information to criminally investigate or prosecute any alcohol or drug abuse patient.[facility] HospitalIn the event this information is protected by the Federal Confidentiality of Alcohol and Drug Abuse Patient Records regulations: The Federal rules restrict any use of the information to criminally investigate or prosecute any alcohol or drug abuse patient.[facility] HospitalIn the event this information is protected by the Federal Confidentiality of Alcohol and Drug Abuse Patient Records regulations: The Federal rules restrict any use of the information to criminally investigate or prosecute any alcohol or drug abuse patient.[facility] HospitalIn the event this information is protected by the Federal Confidentiality of Alcohol and Drug Abuse Patient Records regulations: The Federal rules restrict any use of the information to criminally investigate or prosecute any alcohol or drug abuse patient.[facility] HospitalIn the event this information is protected by the Federal Confidentiality of Alcohol and Drug Abuse Patient Records regulations: The Federal rules restrict any use of the information to criminally investigate or prosecute any alcohol or drug abuse patient.[facility] HospitalIn the event this information is protected by the Federal Confidentiality of Alcohol and Drug Abuse Patient Records regulations: The Federal rules restrict any use of the information to criminally investigate or prosecute any alcohol or drug abuse patient.[facility] HospitalIn the event this information is protected by the Federal Confidentiality of Alcohol and Drug Abuse Patient Records regulations: The Federal rules restrict any use of the information to criminally investigate or prosecute any alcohol or drug abuse patient.[facility] HospitalIn the event this information is protected by the Federal Confidentiality of Alcohol and Drug Abuse Patient Records regulations: The Federal rules restrict any use of the information to criminally investigate or prosecute any alcohol or drug abuse patient.[facility] HospitalIn the event this information is protected by the Federal Confidentiality of Alcohol and Drug Abuse Patient Records regulations: The Federal rules restrict any use of the information to criminally investigate or prosecute any alcohol or drug abuse patient.[facility] HospitalIn the event this information is protected by the Federal Confidentiality of Alcohol and Drug Abuse Patient Records regulations: The Federal rules restrict any use of the information to criminally investigate or prosecute any alcohol or drug abuse patient.[facility] HospitalIn the event this information is protected by the Federal Confidentiality of Alcohol and Drug Abuse Patient Records regulations: The Federal rules restrict any use of the information to criminally investigate or prosecute any alcohol or drug abuse patient.[facility] HospitalIn the event this information is protected by the Federal Confidentiality of Alcohol and Drug Abuse Patient Records regulations: The Federal rules restrict any use of the information to criminally investigate or prosecute any alcohol or drug abuse patient.[facility] HospitalIn the event this information is protected by the Federal Confidentiality of Alcohol and Drug Abuse Patient Records regulations: The Federal rules restrict any use of the information to criminally investigate or prosecute any alcohol or drug abuse patient.[facility] HospitalIn the event this information is protected by the Federal Confidentiality of Alcohol and Drug Abuse Patient Records regulations: The Federal rules restrict any use of the information to criminally investigate or prosecute any alcohol or drug abuse patient.[facility] HospitalIn the event this information is protected by the Federal Confidentiality of Alcohol and Drug Abuse Patient Records regulations: The Federal rules restrict any use of the information to criminally investigate or prosecute any alcohol or drug abuse patient.[facility] HospitalIn the event this information is protected by the Federal Confidentiality of Alcohol and Drug Abuse Patient Records regulations: The Federal rules restrict any use of the information to criminally investigate or prosecute any alcohol or drug abuse patient.[facility] HospitalIn the event this information is protected by the Federal Confidentiality of Alcohol and Drug Abuse Patient Records regulations: The Federal rules restrict any use of the information to criminally investigate or prosecute any alcohol or drug abuse patient.[facility] HospitalIn the event this information is protected by the Federal Confidentiality of Alcohol and Drug Abuse Patient Records regulations: The Federal rules restrict any use of the information to criminally investigate or prosecute any alcohol or drug abuse patient.[facility] HospitalIn the event this information is protected by the Federal Confidentiality of Alcohol and Drug Abuse Patient Records regulations: The Federal rules restrict any use of the information to criminally investigate or prosecute any alcohol or drug abuse patient.[facility] HospitalIn the event this information is protected by the Federal Confidentiality of Alcohol and Drug Abuse Patient Records regulations: The Federal rules restrict any use of the information to criminally investigate or prosecute any alcohol or drug abuse patient.[facility] HospitalIn the event this information is protected by the Federal Confidentiality of Alcohol and Drug Abuse Patient Records regulations: The Federal rules restrict any use of the information to criminally investigate or prosecute any alcohol or drug abuse patient.[facility] HospitalIn the event this information is protected by the Federal Confidentiality of Alcohol and Drug Abuse Patient Records regulations: The Federal rules restrict any use of the information to criminally investigate or prosecute any alcohol or drug abuse patient.[facility] HospitalIn the event this information is protected by the Federal Confidentiality of Alcohol and Drug Abuse Patient Records regulations: The Federal rules restrict any use of the information to criminally investigate or prosecute any alcohol or drug abuse patient.[facility] HospitalIn the event this information is protected by the Federal Confidentiality of Alcohol and Drug Abuse Patient Records regulations: The Federal rules restrict any use of the information to criminally investigate or prosecute any alcohol or drug abuse patient.[facility] HospitalIn the event this information is protected by the Federal Confidentiality of Alcohol and Drug Abuse Patient Records regulations: The Federal rules restrict any use of the information to criminally investigate or prosecute any alcohol or drug abuse patient.[facility] HospitalIn the event this information is protected by the Federal Confidentiality of Alcohol and Drug Abuse Patient Records regulations: The Federal rules restrict any use of the information to criminally investigate or prosecute any alcohol or drug abuse patient.[facility] HospitalIn the event this information is protected by the Federal Confidentiality of Alcohol and Drug Abuse Patient Records regulations: The Federal rules restrict any use of the information to criminally investigate or prosecute any alcohol or drug abuse patient.[facility] HospitalIn the event this information is protected by the Federal Confidentiality of Alcohol and Drug Abuse Patient Records regulations: The Federal rules restrict any use of the information to criminally investigate or prosecute any alcohol or drug abuse patient.[facility] HospitalIn the event this information is protected by the Federal Confidentiality of Alcohol and Drug Abuse Patient Records regulations: The Federal rules restrict any use of the information to criminally investigate or prosecute any alcohol or drug abuse patient.[facility] HospitalIn the event this information is protected by the Federal Confidentiality of Alcohol and Drug Abuse Patient Records regulations: The Federal rules restrict any use of the information to criminally investigate or prosecute any alcohol or drug abuse patient.[facility] Reason for Visit (unrecogniz ed section and content) Reason Comments Established Patient Reason Onset Date Comments Refill Request 12/24/2021 Reason Comments Follow Up Diabetes has only been taking metformin 1 twice a day-discussed ok to take 3 a time and patient will go back to that way Reason Comments Referral Request Reason Comments Results Reason Comments Appointment Reason Onset Date Comments Refill Request 09/25/2022 Reason Comments Consult EGD and colonoscopy, check hernia Reason Onset Date Comments Refill Request 10/23/2022 Reason Comments Follow Up Reason Comments lab and xray results Reason Comments referral problem Reason Comments Medication Question Reason Onset Date Comments Refill Request 12/24/2022 Reason Comments Refill Request Reason Comments Results Patient Question Reason Onset Date Comments Transition Of Care 05/11/2023 Reason Onset Date Comments Refill Request 06/16/2023 Reason Comments Follow Up Reason Comments Appointment I tried to get Rommel cifuentes into the [facility] sooner than her January appointment as requested with any of the [facility] providers but there were no appointments available. She is unable to travel to any other location for Cardiology. Reason Comments Results Reason Comments Erroneous encounter-disregard Reason Comments Radiology US Specialty Diagnoses / Procedures Referred By Contac t Referred To Contact US IMAGING Diagnoses Elevated liver enzymes Polycythemia Procedures US ABD RIGHT UPPER QUADRANT US ABDOMINAL REAL TIME W/IMAGE LIMITED Mac Olvera MD [address] [place] [address] [place] [address] Referral ID Status Reason Start Date Expiration Date V isits Requested Visits Authorized [id number] Closed Auto-Generate d Referral 08/27/2023 09/25/2024 1 1 Reason Onset Date Comments Refill Request 09/08/2023 Reason Comments Lung Cancer Reason Onset Date Comments Refill Request 09/14/[address] Specialty Diagnoses / Procedures Referred By Contac t Referred To Contact CT IMAGING Diagnoses Tobacco use current Procedures CT LUNG SCREEN WO IVCON COMPUTED TOMOGRAPHY THORAX LW DOSE LNG CA SCR C- Shanita Polk, CUSHION FORMER.SHIFT PRODUCTION ASSOCIATE [id number] [id number] Referral ID Status Reason Start Date Expiration Date V isits Requested Visits Authorized [id number] Closed Auto-Generate d Referral 09/17/2023 11/16/2023 1 1 Reason Onset Date Comments Refill Request 11/01/2023 Reason Onset Date Comments Refill Request 11/08/2023 Reason Comments 6 Month Exam Reason Comments Insurance Authorization ozempic Reason Comments Orders Reason Comments Follow Up Reason Comments Results Reason Onset Date Comments Refill Request 03/17/2024 Reason Comments Lab Orders Reason Onset Date Comments Refill Request 04/04/2024 Reason Comments Spirometry Specialty Diagnoses / Procedures Referred By Contac t Referred To Contact [facility] Diagnoses Pulmonary emphysema, unspecified emphysema type (HCC) Procedures LUNG DIFFUSION CAPACITY (DLCO) DIFFUSING CAPACITY Shanita Polk, CUSHION FORMER.SHIFT PRODUCTION ASSOCIATE [address] [place] [address] [facility] [place] [address] [place] [address] Referral ID Status Reason Start Date Expiration Date V isits Requested Visits Authorized [id number] Closed Auto-Generate d Referral 10/07/2023 11/05/2024 1 1 Specialty Diagnoses / Procedures Referred By Contac t Referred To Contact [facility] Diagnoses Pulmonary emphysema, unspecified emphysema type (HCC) Procedures SPIROMETRY WITH DILATOR IF OBSTRUCTED BRNCDILAT RSPSE SPMTRY PRE&POST-BRNCDILAT ADMN Shanita Polk, CUSHION FORMER.SHIFT PRODUCTION ASSOCIATE [address] [place] [address] [facility] [place] [address] [place] [address] Referral ID Status Reason Start Date Expiration Date V isits Requested Visits Authorized [id number] Closed Auto-Generate d Referral 10/07/2023 11/05/2024 1 1 Specialty Diagnoses / Procedures Referred By Contac t Referred To Contact [facility] Diagnoses Pulmonary emphysema, unspecified emphysema type (HCC) Procedures LUNG VOLUMES Shanita Polk, CUSHION FORMER.SHIFT PRODUCTION ASSOCIATE [address] [place] [address] [facility] [place] [address] [place] [id number] Referral ID Status Reason Start Date Expiration Date V isits Requested Visits Authorized [id number] Closed Auto-Generate d Referral 10/07/2023 11/05/2024 1 1 Reason Comments Follow Up Specialty Diagnoses / Procedures Referred By Contac t Referred To Contact CT IMAGING Diagnoses Lung nodules Procedures CT LUNG FOLLOWUP WO IVCON DIAGNOSTIC COMPUTED TOMOGRAPHY THORAX W/O CNTRST [place] CenterShanita, CUSHION FORMER.SHIFT PRODUCTION ASSOCIATE [address] [place] [address] [place] [address] Referral ID Status Reason Start Date Expiration Date V isits Requested Visits Authorized [id number] Closed Auto-Generate d Referral 10/07/2023 11/05/2024 1 1 Reason Comments Recheck 6 months Back Pain Reason Onset Date Comments Refill Request 06/20/2024 Reason Onset Date Comments Refill Request 07/18/2024 Reason Onset Date Comments Refill Request 07/25/2024 Reason Onset Date Comments Refill Request 09/28/2024 Reason Onset Date Comments Refill Request 10/25/2024 Reason Comments 6 Month Exam Reason Comments Skin excision x 2 Reason Comments Follow Up FU with suture remov al. Reason Onset Date Comments Refill Request 11/22/2024 Reason Onset Date Comments Refill Request 2024 Reason Onset Date Comments Refill Request 12/22/2024 Care Teams (unrecognized sec tion and content) Banana Carrier Relationship Specialty Start Date End Date Mac Olvera MD [address] [facility] [place] [address] PCP - General Family Practice 02/01/18 Nicole Rodríguez [address] [facility] [place] [address] Referring Ent - Otolaryngology 01/07/18 Banana Carrier Relationship Specialty Start Date End Date Mac Olvera MD [address] [facility] [place], [place] [address] PCP - General Family Practice 02/01/18 Nicole Rodríguez [address] [facility] [place] [address] Referring Ent - Otolaryngology 01/07/18 Banana Carrier Relationship Specialty Start Date End Date Mac Olvera MD [address] [facility] [place] [address] PCP - General Family Practice 02/01/18 Nicole Rodríguez [address] [facility] [place] [address] Referring Ent - Otolaryngology 01/07/18 Banana Carrier Relationship Specialty Start Date End Date Mac Olvera MD [address] [facility] [place] [address] PCP - General Family Practice 02/01/18 Nicole Rordíguez [address] [facility] [place] [address] Referring Ent - Otolaryngology 01/07/18 Banana Carrier Relationship Specialty Start Date End Date Mac Olvera MD [address] [facility] [place] [address] PCP - General Family Practice 02/01/18 Nicole Rodríguez [address] [facility] [place] [address] Referring Ent - Otolaryngology 01/07/18 Banana Carrier Relationship Specialty Start Date End Date Mac Olvera MD [address] [place] [address] PCP - General Family Medicine 02/01/18 Nicole Rodríguez [address] [place] [address] Referring Ent - Otolaryngology 01/07/18 Banana Carrier Relationship Specialty Start Date End Date Mac Olvera MD [address] [place] [address] PCP - General Family Medicine 02/01/18 Nicole Rodríguez [address] [place] [address] Referring Ent - Otolaryngology 01/07/18 Banana Carrier Relationship Specialty Start Date End Date Mac Olvera MD [address] [place] [address] PCP - General Family Medicine 02/01/18 Nicole Rodríguez [address] [place] [address] Referring Ent - Otolaryngology 01/07/18 Banana Carrier Relationship Specialty Start Date End Date Mac Olvera MD [address] [place] [address] PCP - General Family Medicine 02/01/18 Nicole Rodríguez [address] [place] [address] Referring Ent - Otolaryngology 01/07/18 Banana Carrier Relationship Specialty Start Date End Date Mac Olvera MD [address] [facility] [place] [address] PCP - General Family Medicine 02/01/18 Nicole Rodríguez [address] [place] [address] Referring Ent - Otolaryngology 01/07/18 Banana Carrier Relationship Specialty Start Date End Date Mac Olvera MD [address] [place] [address] PCP - General Family Medicine 02/01/18 Nicole Rodríguez [address] [place] [address] Referring Ent - Otolaryngology 01/07/18 Banana Carrier Relationship Specialty Start Date End Date Mac Olvera MD [address] [place] [address] PCP - General Family Medicine 02/01/18 Nicole Rodríguez [address] [place] [address] Referring Ent - Otolaryngology 01/07/18 Banana Carrier Relationship Specialty Start Date End Date Mac Olvera MD [address] [place] [address] PCP - General Family Medicine 02/01/18 Nicole Rodríguez [address] [place] [address] Referring Ent - Otolaryngology 01/07/18 Banana Carrier Relationship Specialty Start Date End Date Mac Olvera MD [address] [place] [address] PCP - General Family Medicine 02/01/18 Nicole Rodríguez [address] [place] [phone] Referring Ent - Otolaryngology 01/07/18 Banana Carrier Relationship Specialty Start Date End Date Mac Olvera MD [address] [place], [place] 085741 PCP - General Family Medicine 02/01/18 Nicole Rodríguez [address] [place] [address] Referring Ent - Otolaryngology 01/07/18 Banana Carrier Relationship Specialty Start Date End Date Mac Olvera MD [address] [place], [place] 485461 PCP - General Family Medicine 02/01/18 Nicole Rodríguez [address] [place] [phone] Referring Ent - Otolaryngology 01/07/18 Banana Carrier Relationship Specialty Start Date End Date Mac Olvera MD [address] [place], [place] 196861 PCP - General Family Medicine 02/01/18 Nicole Rodríguez [address] [place] [phone] Referring Ent - Otolaryngology 01/07/18 Banana Carrier Relationship Specialty Start Date End Date Mac Olvera MD [address] [place], [place] 380481 PCP - General Family Medicine 02/01/18 Nicole Rodríguez [address] [place] [phone] Referring Ent - Otolaryngology 01/07/18 Team Status: Active Member Role Status Dates Dr. Mac Olvera MD Family Provider Active Dr. Mac Olvera MD Primary Care Provider Active Team Status: Active Member Role Status Dates Dr. Mac Olvera MD Primary Care Provider Active Dr. Angel Carter , Emergency Provider Active Dr. Harmony Argueta , DO Admit Provider, Attending Provide r Active Team Status: Active Member Role Status Dates Dr. Mac Olvera MD Primary Care Provider Active Dr. Angel Carter , Emergency Provider Active Dr. Harmony Argueta , DO Admit Provider, Other Provider Ac tive Dr. Sara Marte MD Other Provider Active Dr. Franc العراقي MD Attending Provider Active Team Status: Active Member Role Status Dates Dr. Mac Olvera MD Primary Care Provider Active Dr. Angel Carter , Emergency Provider Active Dr. Harmony Argueta , DO Admit Provider, Other Provider Ac tive Dr. Sara Marte MD Attending Provider, Other Provid er Active Team Status: Inactive Member Role Status Dates Dr. Mac Olvera MD Primary Care Provider Active Dr. Angel Carter , Emergency Provider Active Dr. Harmony Argueta , DO Admit Provider, Other Provider Ac tive Dr. Sara Marte MD Attending Provider Active Banana Carrier Relationship Specialty Start Date End Date Mac Olvera MD [address] [place] [address] PCP - General Family Medicine 02/01/18 Nicole Rodríguez [address] [place] [phone] Referring Ent - Otolaryngology 01/07/18 Banana Carrier Relationship Specialty Start Date End Date Mac Olvera MD [address] [place], [place] 149041 PCP - General Family Medicine 02/01/18 Nicole Rodríguez [address] [place] [phone] Referring Ent - Otolaryngology 01/07/18 Banana Carrier Relationship Specialty Start Date End Date Mac Olvera MD [address] [place], [place] 229691 PCP - General Family Medicine 02/01/18 Nicole Rodríguez [address] [place] [phone] Referring Ent - Otolaryngology 01/07/18 Banana Carrier Relationship Specialty Start Date End Date Mac Olvera MD [address] [place], [place] 885351 PCP - General Family Medicine 02/01/18 Nicole Rodríguez [address] [place] [phone] Referring Ent - Otolaryngology 01/07/18 Banana Carrier Relationship Specialty Start Date End Date Mac Olvera MD [address] [place], [place] 462211 PCP - General Family Medicine 02/01/18 Nicole Rodríguez [address] [place] [phone] Referring Ent - Otolaryngology 01/07/18 Banana Carrier Relationship Specialty Start Date End Date Mac Olvera MD [address] [place], [place] [id number] PCP - General Family Medicine 02/01/18 Nicole Rodríguez [address] [place] [phone] Referring Ent - Otolaryngology 01/07/18 Banana Carrier Relationship Specialty Start Date End Date Mac Olvera MD [address] [place], [place] 781341 PCP - General Family Medicine 02/01/18 Nicole Rodríguez [address] [place] [phone] Referring Ent - Otolaryngology 01/07/18 Banana Carrier Relationship Specialty Start Date End Date Mac Olvera MD [address] [place], [place] 732671 PCP - General Family Medicine 02/01/18 Nicole Rodríguez [address] [place] [phone] Referring Ent - Otolaryngology 01/07/18 Banana Carrier Relationship Specialty Start Date End Date Mac Olvera MD [address] [place], [place] 705521 PCP - General Family Medicine 02/01/18 Nicole Rodríguez [address] [place] [phone] Referring Ent - Otolaryngology 01/07/18 Banana Carrier Relationship Specialty Start Date End Date Mac Olvera MD [address] [place], [place] 07817691 PCP - General Family Medicine 02/01/18 Nicole Rodríguez [address] [place] [phone] Referring Ent - Otolaryngology 01/07/18 Banana Carrier Relationship Specialty Start Date End Date Mac Olvera MD [address] [place], [place] 569361 PCP - General Family Medicine 02/01/18 Nicole Rodríguez [address] [place] [phone] Referring Ent - Otolaryngology 01/07/18 Banana Carrier Relationship Specialty Start Date End Date Mac Olvera MD [address] [place], [place] 705791 PCP - General Family Medicine 02/01/18 Nicole Rodríguez [address] [place] [phone] Referring Ent - Otolaryngology 01/07/18 Banana Carrier Relationship Specialty Start Date End Date Mac Olvera MD [address] [place], [place] 988081 PCP - General Family Medicine 02/01/18 Nicole Rodríguez [address] [place] [phone] Referring Ent - Otolaryngology 01/07/18 Banana Carrier Relationship Specialty Start Date End Date Mac Olvera MD [address] [place], [place] 66032691 PCP - General Family Medicine 02/01/18 Nicole Rodríguez [address] [place] [phone] Referring Ent - Otolaryngology 01/07/18 Banana Carrier Relationship Specialty Start Date End Date Mac Olvera MD [address] [place], [place] 438641 PCP - General Family Medicine 02/01/18 Nicole Rodríguez [address] [place] [phone] Referring Ent - Otolaryngology 01/07/18 Banana Carrier Relationship Specialty Start Date End Date Mac Olvera MD [address] [place], [place] 869631 PCP - General Family Medicine 02/01/18 Nicole Rodríguez [address] [place] [phone] Referring Ent - Otolaryngology 01/07/18 Banana Carrier Relationship Specialty Start Date End Date Mac Olvera MD [address] [place], [place] 834101 PCP - General Family Medicine 02/01/18 Nicole Rodríguez [address] [place] [phone] Referring Ent - Otolaryngology 01/07/18 Banana Carrier Relationship Specialty Start Date End Date Mac Olvera MD [address] [place], [place] 86400691 PCP - General Family Medicine 02/01/18 Nicole Rodríguez [address] [place] [phone] Referring Ent - Otolaryngology 01/07/18 Banana Carrier Relationship Specialty Start Date End Date Mac Olvera MD [address] [place], [place] 924471 PCP - General Family Medicine 02/01/18 Nicole Rodríguez [address] [place] [phone] Referring Ent - Otolaryngology 01/07/18 Banana Carrier Relationship Specialty Start Date End Date Mac Olvera MD [address] [place], [place] 649561 PCP - General Family Medicine 02/01/18 Nicole Rodríguez [address] [place] [phone] Referring Ent - Otolaryngology 01/07/18 Banana Carrier Relationship Specialty Start Date End Date Mac Olvera MD [address] [place], [place] 430441 PCP - General Family Medicine 02/01/18 Nicole Rodríguez [address] [place] [phone] Referring Ent - Otolaryngology 01/07/18 Banana Carrier Relationship Specialty Start Date End Date Mac Olvera MD [address] [place], [place] 28719691 PCP - General Family Medicine 02/01/18 Nicole Rodríguez [address] [place] [phone] Referring Ent - Otolaryngology 01/07/18 Banana Carrier Relationship Specialty Start Date End Date Mac Olvera MD [address] [place], [place] 853411 PCP - General Family Medicine 02/01/18 Nicole Rodríguez [address] [place] [phone] Referring Ent - Otolaryngology 01/07/18 Banana Carrier Relationship Specialty Start Date End Date Mac Olvera MD [address] [place], [place] 404631 PCP - General Family Medicine 02/01/18 Nicole Rodríguez [address] [place] [phone] Referring Ent - Otolaryngology 01/07/18 Banana Carrier Relationship Specialty Start Date End Date Mac Olvera MD [address] [place], [place] 648001 PCP - General Family Medicine 02/01/18 Nicole Rodríguez [address] [place] [phone] Referring Ent - Otolaryngology 01/07/18 Banana Carrier Relationship Specialty Start Date End Date Mac Olvera MD [address] [place], [place] [phone] PCP - General Family Medicine 02/01/18 Nicole Rodríguez [address] [place] [phone] Referring Ent - Otolaryngology 01/07/18 Banana Carrier Relationship Specialty Start Date End Date Mac Olvera MD [address] [place], [place] 801891 PCP - General Family Medicine 02/01/18 Nicole Rodríguez [address] [place] [phone] Referring Ent - Otolaryngology 01/07/18 Banana Carrier Relationship Specialty Start Date End Date Mac Olvera MD [address] [place], [place] 906741 PCP - General Family Medicine 02/01/18 Nicole Rodríguez [address] [place] [phone] Referring Ent - Otolaryngology 01/07/18 Banana Carrier Relationship Specialty Start Date End Date Mac Olvera MD [address] [place], [place] 879771 PCP - General Family Medicine 02/01/18 Nicole Rodríguez [address] [place] [phone] Referring Ent - Otolaryngology 01/07/18 Banana Carrier Relationship Specialty Start Date End Date Mac Olvera MD [address] [place], [place] 04373691 PCP - General Family Medicine 02/01/18 Nicole Rodríguez [address] [place] [phone] Referring Ent - Otolaryngology 01/07/18 Banana Carrier Relationship Specialty Start Date End Date Mac Olvera MD [address] [place], [place] 647611 PCP - General Family Medicine 02/01/18 Nicole Rodríguez [address] [place] [phone] Referring Ent - Otolaryngology 01/07/18 Shelby Alfonso APRN.SHIFT PRODUCTION ASSOCIATE [address] [place], [place] 688591 Material Carrier Family Medicine 06/20/24 Lauryn Baldwin APRN.SHIFT PRODUCTION ASSOCIATE [address] [place], [place] 132641 Material Carrier Family Medicine 06/20/24 Banana Carrier Relationship Specialty Start Date End Date Mac Olvera MD [address] [place], [place] 88049691 PCP - General Family Medicine 02/01/18 Nicole Rodríguez [address] [place] [phone] Referring Ent - Otolaryngology 01/07/18 Shelby Alfonso APRN.SHIFT PRODUCTION ASSOCIATE [address] [place], [place] 499451 Material Carrier Family Medicine 06/20/24 Lauryn Baldwin APRN.SHIFT PRODUCTION ASSOCIATE [address] [facility] [place], [place] [address]23[address] [facility] Banana Carrier Relationship Specialty Start Date End Date Mac Olvera MD [address] [place], [place] 836661 PCP - General Family Medicine 02/01/18 Nicole Rodríguez [address] [place] [phone] Referring Ent - Otolaryngology 01/07/18 Shelby Alfonso APRN.SHIFT PRODUCTION ASSOCIATE [address] [place] [address] [facility] 06/20/24 Lauryn Baldwin APRN.SHIFT PRODUCTION ASSOCIATE [address] [place] [address] [facility] 06/20/24 Banana Carrier Relationship Specialty Start Date End Date Mac Olvera MD [address] [place], [place] 952171 PCP - General Family Medicine 02/01/18 Nicole Rodríguez [address] [place] [phone] Referring Ent - Otolaryngology 01/07/18 Shelby Alfonso APRN.SHIFT PRODUCTION ASSOCIATE [address] [place], [place] 574191 [facility] 06/20/24 Lauryn Baldwin APRN.SHIFT PRODUCTION ASSOCIATE [address] [place] [address] Material Carrier [facility] 06/20/24 Banana Carrier Relationship Specialty Start Date End Date Mac Olvera MD [address] [facility] [place] 429461 PCP - General Family Medicine 02/01/18 Nicole Rodríguez [address] [place] [phone] Referring Ent - Otolaryngology 01/07/18 Shelby Alfonso APRN.SHIFT PRODUCTION ASSOCIATE [address] [place] [address] [facility] 06/20/24 Lauryn Baldwin APRN.SHIFT PRODUCTION ASSOCIATE [address] [place] [address] [facility] 06/20/24 Banana Carrier Relationship Specialty Start Date End Date Mac Olvera MD [address] [place], [place] 508031 PCP - General Family [facility] 02/01/18 Nicole Rodríguez [address] [place] [phone] Referring Ent - Otolaryngology 01/07/18 Shelby Alfonso CUSHION FORMER.SHIFT PRODUCTION ASSOCIATE [address] [place], [place] [phone] [facility] 06/20/24 Lauryn Baldwin CUSHION FORMER.SHIFT PRODUCTION ASSOCIATE [address] [place], [place] 215011 Material Carrier Family [facility] 06/20/24 Banana Carrier Relationship Specialty Start Date End Date Mac Olvera MD [address] [place], [place] 309501 PCP - General Family Medicine 02/01/18 Nicole Rodríguez [address] [place] [phone] Referring Ent - Otolaryngology 01/07/18 Shelby Alfonso, CUSHION FORMER.SHIFT PRODUCTION ASSOCIATE [address] [place], [place] 487841 [facility] 06/20/24 Lauryn Baldwin CUSHION FORMER.SHIFT PRODUCTION ASSOCIATE [address] [place] [address] [facility]/20/24 Banana Carrier Relationship Specialty Start Date End Date Mac Olvera MD [address] [place], [place] 510571 PCP - General Family Medicine 02/01/18 Nicole Rodríguez [address] [place] [phone] Referring Ent - Otolaryngology 01/07/18 Shelby Alfonso, CUSHION FORMER.SHIFT PRODUCTION ASSOCIATE [address] [place], [place] 630557 [phone] [facility] 06/20/24 Lauryn Baldwin CUSHION FORMER.SHIFT PRODUCTION ASSOCIATE [address] [place] [address] [facility] 06/20/24 Banana Carrier Relationship Specialty Start Date End Date Mac Olvera MD [address] [facility] [place], [place] [address] PCP - General Family Medicine 02/01/18 Nicole Rodríguez [address] [facility] [place] [phone] Referring Ent - Otolaryngology 01/07/18 Shelby Alfonso CUSHION FORMER.SHIFT PRODUCTION ASSOCIATE [address] [place] [address] Material Carrier Family Medicine 06/20/24 Lauryn Baldwin CUSHION FORMER.SHIFT PRODUCTION ASSOCIATE [address] [facility] [place] [address] Material Carrier Family Medicine 06/20/24 Banana Carrier Relationship Specialty Start Date End Date Mac Olvera MD [address] [facility] [place], [place] [address] PCP - General Family Medicine 02/01/18 Nicole Rodríguez [address] [facility] [facility] [place] [phone] Referring Ent - Otolaryngology 01/07/18 Shelby Alfonso CUSHION FORMER.[employer]ODUCTION ASSOCIATE [address] [place] [address] [facility] 06/20/24 Lauryn Baldwin APRN.SHIFT PRODUCTION ASSOCIATE [address] [facility] [place] [address] [employer] 06/20/24 Banana Carrier Relationship Specialty Start Date End Date Mac Olvera MD [address] [place], [place] [id number] PCP - General Family Medicine 02/01/18 Nicole Rodríguez [address] [place] [phone] Referring Ent - Otolaryngology 01/07/18 Shelby Alfonso APRN.SHIFT PRODUCTION ASSOCIATE [address] [place] [address] [employer] [facility] 06/20/24 Lauryn Baldwin APRN.SHIFT PRODUCTION ASSOCIATE [address] [place], [place] [address] [phone] Material Carrier Family [facility] 06/20/24 Banana Carrier Relationship Specialty Start Date End Date Mac Olvera MD [address] [place], [place] [id number] PCP - General Family Medicine 02/01/18 Nicole Rodríguez [address] [place] [phone] Referring Ent - Otolaryngology 01/07/18 Shelby Alfonso APRN.SHIFT PRODUCTION ASSOCIATE [address] [place] [address] Material Carrier Family [facility] 06/20/24 Lauryn Baldwin APRN.SHIFT PRODUCTION ASSOCIATE [address] [place], [place] [id number] [phone] Material Carrier Family [facility] 06/20/24 Team Status: Active Member Role Status Dates Dr. Mac Olvera MD Primary Care Provider Active Team Status: Inactive Member Role Status Dates Dr. Mac Olvera MD Primary Care Provider Active Start: December 21, 2024 End: December 22, 2024 Dr. Angel Carter DO Referring Provider Active Start: December 21, 2024 End: December 22, 2024 Dr. Angel Carter DO Emergency Provider Active Start: December 21, 2024 End: December 22, 2024 Team Status: Inactive Member Role Status Dates Dr. Mac Olvera MD Primary Care Provider Active Start: December 21, 2024 End: December 22, 2024 Dr. Angel Carter DO Attending Provider Active Start: December 21, 2024 End: December 22, 2024 Dr. Angel Carter DO Referring Provider Active Start: December 21, 2024 End: December 22, 2024 Dr. Angel Carter DO Emergency Provider Active Start: December 21, 2024 End: December 22, 2024 Team Status: Active Member Role Status Dates Dr. Mac Olvera MD Primary Care Provider Active Start: January 03, 2025 Dr. Clem Madden DO Emergency Provider Active Start: January 03, 2025 Dr. Sara Marte MD Admit Provider Active Star t: January 03, 2025 Dr. Sara Marte MD Attending Provider Active Start: January 03, 2025 Dr. Sara Marte MD Referring Provider Active Start: January 03, 2025 Dr. Sara Marte MD Other Provider Active Star t: January 03, 2025 Goals (unrecognized section and content) Goals may be documented in a n alternate sectionGoals may be documented in an alternate sectionGoals may be documented in an alternate section FOR RECORDS PERTAINING TO PATIENTS WHO ARE OR HAVE BEEN ENROLLED IN A CHEMICAL DEPENDENCY/SUBSTANCEABUSE PROGRAM, SOME INFORMATION MAY BE OMITTED. This clinical summary was aggregated from multiple sources. Caution should be exercised in using it in the provision of clinical care. This summary normalizes information from multiple sources, and as a consequence, information in this document may materially change the coding, format and clinical context of patient data. In addition, data may be omitted in some cases. CLINICAL DECISIONS SHOULD BE BASED ON THE PRIMARY CLINICAL RECORDS. [employer] [facility]. provides no warranty or guarantee of the accuracy or completeness of information in this document.
[2025-01-03] MEDS: Albuterol 2.5 MG/3 ML VIAL.NEB. INHALATION (22:41)
[2025-01-04] MEDS: proCHLORPERazine 10 MG/2 ML Vial 5 MG IV (01:22)
[2025-01-04 03:24] VITALS: BP 94/45; PULSE 75; RESP 18; TEMP 36.6; O2SAT 92
[2025-01-04] MEDS: oxyCODONE 5 MG Tablet 2.5 MG PO (03:43)
[2025-01-04 04:00] VITALS: O2SAT 92
[2025-01-04 05:14] VITALS: BMI 46.9
[2025-01-04 05:52] LABS: Absolute Lymphocyte Count 3.33 X10^3/uL (0.83-4.51); Absolute Neutrophil Count 4.4 X10^3/uL (2.0-7.7); Basophil# 0.11 X10^3/uL; Basophil% 1.3 % (0-1); Eosinophil# 0.19 X10^3/uL; Eosinophils% 2.2 % (0-5); Hematocrit 40.5 % (37-47); Hemoglobin 13.2 g/dL (12.0-15.0); Lymphocyte # 3.33 X10^3/ul (0.83-4.51); Mean Corp Hgb Conc 32.6 g/dL (32-36); Mean Corpuscular Hgb 30.7 pg (27.0-32.0); Mean Corpuscular Volume 94.2 fL (81-99); Mean Platelet Vol. 9.1 fl (6.2-12.0); Monocyte# 0.68 X10^3/uL; Monocyte% 7.8 % (0-10); NRBC Flagged by Analyzer 0 % (0-5); Neutrophil # 4.44 X10^3/uL (2.7-7.7); Neutrophil % 50.5 % (47-70); Platelet Count 341 K/mm3 (150-450); RBC Distribution Width CV 13.5 % (11.6-14.6); RBC Distribution Width SD 46.9 fl (35.1-43.9); White Blood Count 8.8 K/mm3 (4.4-11.0)
[2025-01-04 06:38] VITALS: PULSE 63; RESP 18
[2025-01-04] MEDS: Budesonide Respules 0.5 MG/2 ML AMPUL.NEB. INHALATION (06:38)
[2025-01-04] MEDS: Albuterol 2.5 MG/3 ML VIAL.NEB. INHALATION (06:38)
[2025-01-04 06:42] LABS: Hemoglobin A1c 7.7 % (<=5.6)
[2025-01-04] MEDS: Ondansetron 4 MG/2 ML Vial IV (06:44)
[2025-01-04 06:46] LABS: AST(SGOT) 39 U/L (<=31); Alanine Aminotransfer ALT/SGPT 25 U/L (<=34); Albumin, Serum 3.2 g/dL (3.4-4.8); Alkaline Phosphatase 47 U/L (35-104); Anion Gap 9 (5-15); BUN 16 mg/dL (4-19); BUN/Creat Ratio 12.8 RATIO (10-20); Calcium,Total 8.8 mg/dL (7.6-11.0); Carbon Dioxide 22.6 mmol/L (21.0-32.0); Chloride 104 mmol/L (98-108); Creatinine, Serum 1.23 mg/dL (0.70-1.20); EST Glomerular Filtration Rate 48 (>60); Estimated Creatinine Clearance 62.89 ml/min (50-250); Globulin 3.4 g/dL (2.2-4.2); Glucose 154 mg/dL (70-99); Potassium 4.9 mmol/L (3.3-5.1); Protein, Total 6.6 g/dL (5.9-8.4); Sodium Level 135 mmol/L (133-145); Total Bilirubin 0.52 mg/dL (0.00-1.30)
--- NOTE | 2025-01-04 07:18 | PCM.PN.HOSP ---
Reason for Visit Reason for Visit: Diagnoses Nausea (01/03/25) Subjective Subjective Feeling better. Denies THC use. Objective Data Objective Data Vital Signs: Vital Signs Temp Pulse Resp BP Pulse Ox O2 Del Method 36.6 C 63 18 94/45 L 92 Room Air 01/04/25 03:24 01/04/25 06:38 01/04/25 06:38 01/04/25 03:24 01/04/25 04:00 01/04/25 04:00 Oxygen Delivery Method Room Air Weight: 132.4 kg Body Mass Index (BMI) 46.9 Intake & Output: Intake and Output for Last 24 Hours 01/02/25 01/03/25 01/04/25 23:59 23:59 23:59 Intake Total 3049.05 / 3049.05 500 / 500 Output Total 400 / 400 Balance 3049.05 / 3049.05 100 / 100 Lab / Micro Data 01/04/25 05:22 01/04/25 05:22 Labs: Laboratory Results - last 24 hr 01/03/25 13:04: WBC 11.4 H, RBC 5.09, Hgb 15.6 H, Hct 47.1 H, MCV 92.5, MCH 30.6, MCHC 33.1, RDW Std Deviation 45.5 H, RDW Coeff of Aubrey 13.3, Plt Count 459 H, MPV 9.3, Immature Gran % (Auto) 0.400, Neut % (Auto) 53.8, Lymph % (Auto) 35.6, [place] % (Auto) 7.7, Eos % (Auto) 1.3, Baso % (Auto) 1.2 H, Absolute Neuts (auto) 6.1, Absolute Lymphs (auto) 4.07, Nucleated RBC % 0, PT 14.6, INR 1.1, APTT 26.3, Sodium 135, Potassium 4.9, Chloride 100, Carbon Dioxide 21.6, Anion Gap 13, BUN 20 H, Creatinine 1.39 H, Estim Creat Clear Calc 54.91, Est GFR (MDRD) Non-Af 42 L, BUN/Creatinine Ratio 14.5, Glucose 133 H, Calcium 9.9, Total Bilirubin 0.50, AST 43 H, ALT 29, Alkaline Phosphatase 57, Total Protein 7.6, Albumin 3.7, Globulin 3.8, Albumin/Globulin Ratio 1.0, Lipase 40 01/03/25 13:13: Lactic Acid 1.7 01/03/25 13:38: Urine Color Yellow, Urine Clarity Sl. Cloudy, Urine pH 6.0, Ur Specific [place] 1.020, Urine Protein 30 H, Urine Glucose (UA) Normal, Urine Ketones Negative, Urine Occult Blood 25 H, Urine Nitrite Negative, Urine Bilirubin 1 H, Urine Urobilinogen 1 H, Ur Leukocyte Esterase 25 H, Urine RBC 0-5 SEEN, Urine WBC 10-25 SEEN, Ur Squamous Epith Cells 5-10 SEEN, Urine Bacteria 0 SEEN, Urine Mucus 0 SEEN 01/03/25 21:10: POC Glucose 114 H 01/04/25 05:22: WBC 8.8, RBC 4.30, Hgb 13.2, Hct 40.5, MCV 94.2, MCH 30.7, MCHC 32.6, RDW Std Deviation 46.9 H, RDW Coeff of Aubrey 13.5, Plt Count 341, MPV 9.1, Immature Gran % (Auto) 0.200, Neut % (Auto) 50.5, Lymph % (Auto) 38.0, [place] % (Auto) 7.8, Eos % (Auto) 2.2, Baso % (Auto) 1.3 H, Absolute Neuts (auto) 4.4, Absolute Lymphs (auto) 3.33, Nucleated RBC % 0, Sodium 135, Potassium 4.9, Chloride 104, Carbon Dioxide 22.6, Anion Gap 9, BUN 16, Creatinine 1.23 H, Estim Creat Clear Calc 62.89, Est GFR (MDRD) Non-Af 48 L, BUN/Creatinine Ratio 12.8, Glucose 154 H, Hemoglobin A1c 7.7 H, Calcium 8.8, Total Bilirubin 0.52, AST 39 H, ALT 25, Alkaline Phosphatase 47, Total Protein 6.6, Albumin 3.2 L, Globulin 3.4, Albumin/Globulin Ratio 1.0, TSH 7.240 H Radiography Diagnostic Testing: Radiology Impression Abdomen/Pelvis CT 01/03/25 13:55 IMPRESSION: Fatty infiltration of the liver. Status post cholecystectomy. Stable left renal cyst. Small umbilical hernia containing fat. Sigmoid diverticulosis. Reading Location: [id number] Physical Exam Const alert and no apparent distress HEENT head/scalp atraumatic and moist oral mucous membranes Resp normal respiratory effort, no retractions, no use of accessory muscles and clear to auscultation bilaterally Cardio regular rate, regular rhythm, S1 normal heart sound and S2 normal heart sound GI normal to inspection, nondistended, normoactive bowel sounds, soft to palpation, non-tender and non-distended Extremity normal to inspection and full ROM Assessment & Plan Assessment/Plan (1) Intractable nausea: PLAN: unclear etiology GES negative. Pt denies marijuanna use. supportive mgmt. PLAN: Plan DM2: SSI. metformin held. HTN: metoprolol succinate. lisinopril on hold for now. COPD: stable. Obesity class III: complicates care and recovery. VTE prophylaxis: LMWH. Charges/Coding Visit Charges Inpatient E&M: 72378 Subs Hosp L2
[2025-01-04 07:23] LABS: Bedside Glucose 132 mg/dL (74-106)
[2025-01-04 08:36] VITALS: BP 152/90; PULSE 84; RESP 16; TEMP 36.6; O2SAT 97
[2025-01-04] MEDS: Pantoprazole Sodium 40 MG in 0.9% Normal Saline (100mL MB+) 100 ML 250 MG IV (10:26)
[2025-01-04] MEDS: Insulin Lispro 100 UNIT/ML INSULN.PEN SC (12:49)
[2025-01-04] MEDS: Enoxaparin 40 MG/0.4 ML Syringe SC (12:51)
[2025-01-04 13:15] LABS: Bedside Glucose 218 mg/dL (74-106)
[2025-01-04 14:39] VITALS: BP 130/71; PULSE 77; RESP 16; TEMP 36.6; O2SAT 94
[2025-01-04] MEDS: Aspirin E.C. 81 MG Tablet 162 MG PO (14:44)
[2025-01-04 14:45] VITALS: PULSE 77
[2025-01-04] MEDS: Metoprolol(XL)Succ 25 MG Tablet 12.5 MG PO (14:45)
[2025-01-04] MEDS: Clopidogrel Bisulfate 75 MG Tablet PO (14:47)
--- NOTE | 2025-01-04 16:04 | CASEMGMT ---
HUTCHINSON Met with patient to complete HUTCHINSON form. HUTCHINSON form and its content were verbally explained and patient's questions were answered to the best of my ability.? Patient voiced understanding and signed HUTCHINSON form.? Patient provided a copy of signed HUTCHINSON form and original placed in patient's chart.? Patient had no further questions. Hyacinth Dale, Discharge Planning Asst
--- NOTE | 2025-01-04 16:05 | PCM.DC.SUM ---
Providers Date of Admission: 01/03/25 Primary Care Physician: Dr. aMc Siddiqui MD Reason For Visit: ABD PAIN N/V Diagnosis Discharge Diagnosis (1) Intractable nausea: Status: Acute Code(s): R11.0 - Nausea Plan: unclear etiology GES negative. Pt denies marijuanna use. Tolerated PO. Plan DM2: SSI. metformin held. HTN: metoprolol succinate. lisinopril on hold for now. COPD: stable. Obesity class III: complicates care and recovery. VTE prophylaxis: LMWH. Medications at Discharge Home Medications nitroglycerin 0.4 mg sublingual tablet 0.4 mg sublingual Q5M PRN CHEST PAIN 05/15/15 metoprolol succinate 50 mg tablet,extended release 24 hr 50 mg PO DAILY BLOOD PRESSURE 02/28/19 aspirin 81 mg tablet,delayed release 162 mg PO DAILY HEART HEALTH 03/01/19 clopidogrel 75 mg tablet 75 mg PO DAILY BLOOD THINNER #90 tabs 05/19/19 lisinopril 20 mg tablet 40 mg PO DAILY BLOOD PRESSURE 10/03/19 metformin 500 mg tablet,extended release 24 hr 1,500 mg PO DAILY DIABETES 10/03/19 Held on 01/04/25. Instructions: Resume on 01/09/25. rosuvastatin 20 mg tablet 40 mg PO DAILY CHOLESTEROL 05/06/23 fluticasone furoate 200 mcg-vilanterol 25 mcg/dose inhalation powder (Breo Ellipta) 1 ea inhalation DAILY 01/03/25 ondansetron HCl 8 mg tablet 8 mg PO Q8H PRN nausea vomiting 48 hours #6 tabs 01/04/25 Hospital Course Operations None Procedures None Summary of Care Provided Hospital Course: Patient presents with intractable nausea and vomiting. CT scan showed no acute process. Patient underwent a gastric emptying study that was normal given her history of diabetes. Patient received IV fluids and was feeling better. Patient did complain of bladder spasms that overall is improved. Patient is feeling well will be discharged home in stable condition. Weight / BMI Weight Weight: 132.4 kg Body Mass Index (BMI) 46.9 ABG / Lab / Microbiology Data 01/04/25 05:22 01/04/25 05:22 Laboratory: Laboratory Results - last 24 hr 01/03/25 13:04: Lipase 40 01/03/25 21:10: POC Glucose 114 H 01/04/25 05:22: WBC 8.8, RBC 4.30, Hgb 13.2, Hct 40.5, MCV 94.2, MCH 30.7, MCHC 32.6, RDW Std Deviation 46.9 H, RDW Coeff of Aubrey 13.5, Plt Count 341, MPV 9.1, Immature Gran % (Auto) 0.200, Neut % (Auto) 50.5, Lymph % (Auto) 38.0, [place] % (Auto) 7.8, Eos % (Auto) 2.2, Baso % (Auto) 1.3 H, Absolute Neuts (auto) 4.4, Absolute Lymphs (auto) 3.33, Nucleated RBC % 0, Sodium 135, Potassium 4.9, Chloride 104, Carbon Dioxide 22.6, Anion Gap 9, BUN 16, Creatinine 1.23 H, Estim Creat Clear Calc 62.89, Est GFR (MDRD) Non-Af 48 L, BUN/Creatinine Ratio 12.8, Glucose 154 H, Hemoglobin A1c 7.7 H, Calcium 8.8, Total Bilirubin 0.52, AST 39 H, ALT 25, Alkaline Phosphatase 47, Total Protein 6.6, Albumin 3.2 L, Globulin 3.4, Albumin/Globulin Ratio 1.0, TSH 7.240 H 01/04/25 06:41: POC Glucose 132 H 01/04/25 12:47: POC Glucose 218 H Radiography Diagnostic Testing: Radiology Impression Gastric Emptying Nuclear Medicine 01/03/25 20:30 IMPRESSION: Normal gastric emptying. Reading Location: [id number] D/ Instructions Discharge Diet: 2000 Calorie Control Diet DC O2, CPAP, BIPAP Needs Home O2 Discharge instructions: No Meaningful Use Info Meaningful Use Meaningful Use Diagnoses (Choose all that apply): None applicable Ischemic Stroke Statin Dosing Therapy Reference: STATIN DOSE THERAPY REFERENCE: * Patients > 75 years receive moderate or high dose statin therapy. * Patients 75 years or YOUNGER should receive HIGH intensity statin dose unless contraindicated. You will be required to document reason for non-treatment if statin daily dose does not meet guidelines. HIGH DOSE STATIN THERAPY DAILY Atorvastatin > than or = to 40 mg Rosuvastatin > than or = to 20 mg Amlodipine + Atorvastatin > than or = to 2.5/40 mg Ezetimibe + Simvastatin 10/80 mg Simvastatin 80mg Discharge Plan Admission Admit Date/Time: 01/03/25 18:39 Primary Reason for Your Visit: nausea vomiting. Attending Provider: Angel Lindsey Primary Care Provider: Mac Siddiqui Consulting Providers: Sara Marte Discharge Orders/Prescriptions Prescriptions: New ondansetron HCl 8 mg tablet 8 mg PO Q8H PRN (Reason: nausea vomiting) 2 Days Qty: 6 0RF Continued metoprolol succinate 50 mg tablet extended release 24 hr 50 mg PO DAILY aspirin 81 mg tablet,delayed release (DR/EC) 162 mg PO DAILY nitroglycerin 0.4 MG tablet 0.4 mg sublingual Q5M PRN (Reason: CHEST PAIN ) lisinopril 20 MG tablet 40 mg PO DAILY rosuvastatin 20 mg tablet 40 mg PO DAILY fluticasone furoate-vilanterol [Breo Ellipta] 200-25 mcg/dose blister with device 1 ea INHALATION DAILY clopidogrel 75 mg tablet 75 mg PO DAILY Qty: 90 3RF Held metformin 500 MG tablet extended release 24 hr 1,500 mg PO DAILY Hold Instructions: Resume on 01/09/25. Referrals / Follow Up: Mac Siddiqui MD [Primary Care Provider] - Within 2 Weeks Disposition Disposition (needs filled in before D/C Order can be placed): Home, Self Care Charges/Coding Visit Charges Inpatient E&M: 57663 Disch Hosp
--- NOTE | 2025-01-04 17:04 | CASEMGMT ---
Social Work- Sw met with pt to complete SDOH assessment. SW introduced self and role; pt agreeable to meet. SW provided resources and referrals as outlined in SDOH assessment. Pt reports that she has trouble filling out forms and is easily confused when trying to connect with resources. SW provided referrals and highlighted phone numbers on printed materials. Pt reports no other needs at this time. ALONSO Luis
[2025-01-04 17:42] LABS: TCA Internal Control -Neg LINE = VALID (- VALID); TCA Urine Drug Screen Negative (<1000 ng/mL)
== END 2025-01-04 18:23 | disposition home or self-care (01) ==
LOC: ED 17:29 → MS3 19:05
PROVIDERS: Admitting Provider Internal Medicine; Emergency Provider Emergency Medicine; PCP Family Medicine; Referring Provider Internal Medicine
DX: R11.2 Nausea with vomiting, unspecified (principal); J44.9 Chronic obstructive pulmonary disease, unspecified; E66.813 Obesity, class 3; Z68.42 Body mass index [BMI] 45.0-49.9, adult; E11.9 Type 2 diabetes mellitus without complications; E78.5 Hyperlipidemia, unspecified; Z79.84 Long term (current) use of oral hypoglycemic drugs; I10 Essential (primary) hypertension; K42.9 Umbilical hernia without obstruction or gangrene; K76.0 Fatty (change of) liver, not elsewhere classified; Z79.02 Long term (current) use of antithrombotics/antiplatelets; N32.89 Other specified disorders of bladder; R06.02 Shortness of breath; I25.10 Atherosclerotic heart disease of native coronary artery without angina pectoris; K57.30 Diverticulosis of large intestine without perforation or abscess without bleeding; R53.1 Weakness; R07.89 Other chest pain; Z95.1 Presence of aortocoronary bypass graft; Z79.899 Other long term (current) drug therapy; F17.210 Nicotine dependence, cigarettes, uncomplicated; K21.9 Gastro-esophageal reflux disease without esophagitis
CPT/HCPCS: 36415; 74177; 78264; 80053; 80307; 81001; 82962; 83036; 83605; 83690; 84443; 85025; 85610; 85730; 87040; 87077; 87086; 87088; 87186; 93005; 94640; 94668; 96365; 96366; 96372; 96375; 96376; 97162; 99221; 99252; 99285; A9541; Q9967; A4216; G0378; G0463; J2405